=== PATIENT | female | born 1950 | race Caucasian/White ===

== ENCOUNTER → 2020-03-27 09:13 | Outpatient (BNVA) | payer MEDICARE, SELFPAY | PROVIDERS: PCP Internal Medicine; Visit Provider Student in an Organized Health Care Education/Training Program | DX: Z13.89 Encounter for screening for other disorder (principal) | CPT/HCPCS: Q3014 ==

== ENCOUNTER → 2020-04-02 13:54 | Outpatient (REF) | payer MEDICARE, SELFPAY ==
--- NOTE | 2020-04-02 14:00 | CA_ITS ---
Transthoracic Echocardiogram Patient (Last, First, Middle): Mandie Gonzalez, Gender: Female Date of : 1950 Age: 69 Procedure Date: 04/02/2020 Procedure Type: Transthoracic Echocardiogram Location: OP Height: 167.64 cm Weight: 85.73 kg BSA: 1.95 m2 Heart Rate: bpm BP: 110 / 50 mmHg Prior Authorization Nurse: TREVOR Perkins MD: Jeramie Damian MD Maintenance Data Analyst: Jeison Barragan MD Symptoms: I48.19 PERSISTENT AFIB, R06.02 SOB, Z86.73 HX OF STROKE Study Quality: Fair ECG Rhythm: Atrial Fibrillation Conclusions: - 1. Normal LV systolic function 2. Normal cardiac valvular Doppler 3. Normal RV systolic pressure 4. Mildly dilated ascending aorta at 4.2 cm 5. No pericardial effusion Findings Left Ventricle Normal left ventricular size, thickness, and systolic function. The visually estimated ejection fraction is between 55-60%. Diastolic function is indeterminate on the basis of available data. Right Ventricle Normal right ventricular cavity size and systolic function. Atria Both atria are normal in size. There is lipomatous hypertrophy of the interatrial septum. Interatrial shunt cannot be excluded. Aortic Valve There is mild thickening of the aortic valve. There is no aortic valve stenosis. There is no aortic valve regurgitation. Mitral Valve There is mild anterior and posterior mitral leaflet thickening. There is trace mitral valve regurgitation. There is no mitral valve stenosis. Pulmonic Valve The pulmonic valve was not well visualized. Tricuspid Valve Likely normal tricuspid valve structure and function. There is mild tricuspid valve regurgitation. The right ventricular systolic pressure is normal. The right ventricular systolic pressure is 33 mmHg. There is no evidence of pulmonary hypertension. Great Vessels The pulmonary artery was not well visualized. There is mild dilatation of the ascending aorta measuring 4.20 cm. Venous The inferior vena cava was not well visualized. Pericardium/Pleural There is no evidence of pericardial effusion. Prior Study Comparison No significant change compared to prior study dated: 06/22/2019. Measurements 2D Linear Measurements IVSd: 0.95 0.6-0.9/0.6-1.0 cm LVIDd: 4.37 3.9-5.3/4.2-5.9 cm LVIDd Index: 2.24 2.4-3.2/2.2-3.1 cm/m2 LVIDs: 3.14 2.0-3.6 cm LVPWd: 0.95 0.7-1.1 cm Ao Root: 3.70 2.1-3.5 cm LV Mass: 170.17 67-162/88-224 g LV Mass Index: 87.27 43-95/49-115 g/m2 LVOT Diam: 2.00 3.0+(-)1.3 cm 2D Systolic Function EF 4C: 54.30 >55% EF 2C: 65.70 >55% EF BiP: 60.10 >55% Aortic Valve AoV Pk Kendrick: 1.18 AoV Mn Kendrick: 0.92 AoV VTI: 0.21 AoV Pk Grad: 6.00 Aov Mn Grad: 4.00 DAVID Cont.VTI: 2.81 LVOT LVOT Pk Kendrick: 1.02 LVOT Mn Kendrick: 0.77 LVOT VTI: 0.19 LVOT Pk Grad: 4.00 LVOT Mn Grad: 3.00 LVOT Diam: 2.00 LVOT Area: 3.14 Tricuspid Valve TR Pk Kendrick: 2.73 TR Pk Grad: 30.00 RA Press: 3.00 RVSP: 33.00 Great Vessels Aorta Ao Root-2D: 3.70 2.0-3.7 cm Ao Asc: 4.20 2.1-3.4 cm Updated in Other Vendor System with Status of Final Jeison Barragan MD electronically signed on 04/03/2020 12:13:00 PM with status of Final
== END ==
LOC: HO.CARD 13:54
PROVIDERS: PCP Internal Medicine; Visit Provider Internal Medicine
DX: I48.19 Other persistent atrial fibrillation (principal); R06.02 Shortness of breath; Z86.73 Personal history of transient ischemic attack (TIA), and cerebral infarction without residual deficits
CPT/HCPCS: 93306

== ENCOUNTER 2020-05-29 14:53 | Outpatient (REF) | payer MEDICARE, SELFPAY ==
[2020-05-29 15:30] LABS: Leukocytes Stool Qualitative FEW: < 2/OIF (NEGATIVE)
== END 2020-05-29 14:54 | disposition home or self-care (01) ==
LOC: HO.LNP 14:53
PROVIDERS: Visit Provider Internal Medicine
DX: A09 Infectious gastroenteritis and colitis, unspecified (principal)
CPT/HCPCS: 87045; 87046; 87329; 89055

== ENCOUNTER 2020-08-09 11:00 | Outpatient (RCR) | payer MEDICARE, SELFPAY | END 2020-08-31 12:47 | disposition other institution (70) | LOC: HO.PTWFD 11:00 | PROVIDERS: PCP Internal Medicine; Visit Provider Internal Medicine | DX: R42 Dizziness and giddiness (principal) | CPT/HCPCS: 95992; 97110; 97116; 97162; 97535 ==

== ENCOUNTER 2020-08-21 12:41 | Emergency (ER) | payer MEDICARE, SELFPAY ==
[2020-08-21 13:40] VITALS: BP 92/62; PULSE 71; RESP 18; TEMP 36.4; O2SAT 96; BMI 31.1
[2020-08-21 14:32] LABS: MANUAL DIFF FLAG NO
[2020-08-21 14:34] LABS: Basophils Absolute Auto 0.1 X10*3/uL (0.0-0.2); Basophils Percent Auto 0.8 % (0-2); Eosinophils Absolute Auto 0.3 X10*3/uL (0.0-0.4); Hematocrit 41.2 % (37-47); Hemoglobin 13.3 g/dl (12.0-16.0); Imm Gran Abs Auto 0.03 X10*3/uL (0.00-0.03); Imm Gran Pct Auto 0.4 % (0.0-0.4); Lymphocytes Absolute Auto 1.7 X10*3/uL (1.2-4.9); Lymphocytes Percent Auto 20.1 % (20-40); Mean Corpuscular HGB Conc 32.3 g/dl (31.0-35.0); Mean Corpuscular Hemoglobin 30.4 pg (27.0-33.0); Mean Corpuscular Volume 94.1 fL (80-98); Mean Platelet Volume 9.8 fL (9.4-12.3); Monocytes Absolute Auto 0.8 X10*3/uL (0.1-1.2); Monocytes Percent Auto 9.1 % (2-11); Neutrophils Absolute Auto 5.5 X10*3/uL (2.0-8.3); Neutrophils Percent Auto 66.6 % (45-73); Platelet Count 234 X10*3/uL (160-400); Red Blood Count 4.38 X10*6/uL (4.20-5.50); Red Cell Distribution Width 14.5 % (11.0-16.0); White Blood Count 8.3 X10*3/uL (4.8-10.8)
--- NOTE | 2020-08-21 14:54 | ED_ITS ---
HPI - General Adult General Chief complaint: General Medical Stated complaint: pt feeling sick Time Seen by Provider: 08/21/20 14:11 Source: patient and family Mode of arrival: ambulatory Limitations: no limitations History of Present Illness HPI narrative: 70 y/o female with history of atrial fibrillation on Eliquis, HTN, HLD, hx CVA 5 years ago, severe arthritis, chronic back pain who presents to the ER with bodyaches, joint pain and generally feeling unwell. She reports starting last Thursday, 6 days ago, she starting having increase in her chronic joint pain. She had very sore upper back and neck as well as hips and shoulder pains. Two days later she developed generalized weakness and fatigue and spent much of the weekend in bed. She had 1 day of diarrhea, about 4-5 episodes of loose watery stool with some nausea but not vomiting or abdominal pain. She monitored her temperature and never had a fever. She called her doctor this morning who advised her to come to the ER for evaluation and COVID testing. She is s/p [employer] x2 in April. She reports feeling better today but not at her baseline. MD complaint: feeling unwell Onset (ago): day(s) (6) Severity: mild Relieving factors: rest Exacerbating factors: movement Associated symptoms: headaches and loss of appetite Treatments prior to arrival: none Related Data Home Medications Medication Instructions Recorded Confirmed apixaban 5 mg tablet 5 mg PO BID 03/27/20 atorvastatin 40 mg tablet 40 mg PO DAILY 03/27/20 celecoxib 200 mg capsule 200 mg PO DAILY 03/27/20 conj estrogen-medroxyprogesterone 1 tab PO DAILY 03/27/20 0.625 mg-2.5 mg tablet levothyroxine 50 mcg capsule 50 mcg PO DAILY 03/27/20 lisinopril 20 1 tab PO DAILY 03/27/20 mg-hydrochlorothiazide 12.5 mg tablet metoprolol succinate 50 mg 50 mg PO DAILY 03/27/20 tablet,extended release 24 hr omeprazole 20 mg capsule,delayed 20 mg PO DAILY 03/27/20 release verapamil 120 mg 24 hr 120 mg PO DAILY 03/27/20 capsule,extended release Previous Rx's Medication Instructions Recorded tramadol 50 mg tablet 50 mg PO Q8H PRN #90 tab 03/27/20 cefuroxime axetil 250 mg PO BID #10 tab 08/21/20 Allergies Allergy/AdvReac Type Severity Reaction Status Date / Time No Known Allergies Allergy Mild N/A Verified 08/21/20 13:40 Review of Systems Review of Systems: Constitutional: No Fever, No Chills ENT/Mouth: No sore throat, No Rhinorrhea, No Swallowing Difficulty Cardiovascular: No Chest Pain, No SOB, No Orthopnea, No Edema Respiratory: No Cough, No Sputum, No Wheezing, No dyspnea Gastrointestinal: + Nausea, No Vomiting, + Diarrhea, No abdominal Pain, No Hematochezia, No Melena Genitourinary: No Dysuria, No Urinary Frequency, No Hematuria Musculoskeletal: + joint pain, + Myalgias Skin: No Skin Lesions, No rash Neuro: + Weakness, No Numbness, No Dizziness, + Headache Psych: No Anxiety/Panic, No Depression Heme/Lymph: No Bruising, No Lymphadenopathy Endocrine: No Polyuria, No Polydipsia PMF Past Medical History Attestation statement: The following information was validated with the patient. Medical History Anxiety Arthritis Asthma Carpal tunnel syndrome Chronic pain GERD (gastroesophageal reflux disease) HTN (hypertension) Hypothyroidism Obesity Primary osteoarthritis involving multiple joints Stroke Surgical History (Updated 03/27/20 @ 09:20 by Delores Almazan CMA) History of bladder surgery History of tonsillectomy Hx of cholecystectomy S/P foot surgery, right S/P panniculectomy Family History Family History (Updated 03/27/20 @ 09:21 by Delores Almazan CMA) Father CVD (cardiovascular disease) Diabetes Mother CVD (cardiovascular disease) HTN (hypertension) Social History Social History (Updated 03/27/20 @ 09:22 by Delores Almazan CMA) Alcohol intake: unknown Patient Tobacco Use Status: Tobacco use Unknown Use of substances other than those prescribed or required for medical reasons: No Advance Directives: No Advance Directives Information Provided: No Physical Exam Vital Signs: Vital Signs: Last Vital Signs Temp 97.4 F 08/21/20 15:08 Pulse 88 08/21/20 16:17 Resp 16 08/21/20 16:17 BP 117/56 L 08/21/20 16:17 Pulse Ox 98 08/21/20 16:17 Body Mass Index 31.1 Appearance: Alert. Oriented X3. No acute distress. Eyes: Pupils equal, round and reactive to light. ENT: Pharynx normal. Neck: Normal inspection. Neck supple. CVS: Irregularly irregular, normal rate. Pulses normal. Respiratory: No respiratory distress. Breath sounds normal. Abdomen: Obese, Soft and nontender. +BS x4 Skin: Skin warm and dry. Normal skin color. Normal skin turgor. No rashes. Extremities: No lower extremity edema. Neuro: Oriented X 3. No motor deficit. No sensory deficit. Slow but steady gait with her cane. Course Course Course Narrative: 70 y/o female presenting with generalized weakness, fatigue, body aches and 1 day of diarrhea. Possible viral syndrome, dehydration, UTI. Will get lab workup and COVID swab. She is afebrile on arrival with soft BP 92/62, no dizziness. She reports her usual BP at home, the top number is 97 or so. Reports poor PO intake and she took all of her anti-hypertensives/rate controlling meds. Low suspicion for sepsis at this time. Reevaluation(s) Reevaluation #1: Labs are unremarkable. No leukocytosis, electrolytes and renal function are normal. Awaiting UA. She is tolerating PO. No diarrhea. Reevaluation #2: ua + for infection. Will start Ceftin and d/c home. She is not septic. Patient agreeable with plan and will f/u with PCP. 1st dose abx given now. Medical Decision Making Lab Data Result diagrams: 08/21/20 14:27 08/21/20 14:27 Labs: Lab Results 08/21/20 08/21/20 08/21/20 Range/Units 14:27 14:27 14:27 WBC 8.3 (4.8-10.8) X10*3/uL RBC 4.38 (4.20-5.50) X10*6/uL Hgb 13.3 (12.0-16.0) g/dl Hct 41.2 (37-47) % MCV 94.1 (80-98) fL MCH 30.4 (27.0-33.0) pg MCHC 32.3 (31.0-35.0) g/dl RDW 14.5 (11.0-16.0) % Plt Count 234 (160-400) X10*3/uL MPV 9.8 (9.4-12.3) fL Immature Gran % (Auto) 0.4 (0.0-0.4) % Neut % (Auto) 66.6 (45-73) % Lymph % (Auto) 20.1 (20-40) % [place] % (Auto) 9.1 (2-11) % Eos % (Auto) 3.0 (0-4) % Baso % (Auto) 0.8 (0-2) % Lymph # (Auto) 1.7 (1.2-4.9) X10*3/uL [place] # (Auto) 0.8 (0.1-1.2) X10*3/uL Eos # (Auto) 0.3 (0.0-0.4) X10*3/uL Baso # (Auto) 0.1 (0.0-0.2) X10*3/uL Abs Immat Gran (auto) 0.03 (0.00-0.03) X10*3/uL Absolute Neuts (auto) 5.5 (2.0-8.3) X10*3/uL Absolute Nucleated RBC 0.000 (0.0-0.012) X10*3/uL Nucleated RBC % (auto) 0.0 (0.0-0.2) /100WBC Hold Blue Top Sodium 139 (135-145) mmol/L Potassium 4.0 (3.3-5.1) mmol/L Chloride 101 (96-108) mmol/L Carbon Dioxide 28 (22-29) mmol/L Anion Gap 14 (12-20) BUN 17 H (9-16) mg/dL Creatinine 1.08 (0.5-1.4) mg/dL Estim Creat Clear Calc 50.6 Estimated GFR 50 Random Glucose 110 (60-115) mg/dL Calcium 9.4 (8.4-10.2) mg/dL Magnesium 1.9 (1.6-2.6) mg/dL Total Bilirubin 0.4 (0.0-1.0) mg/dL Direct Bilirubin 0.2 (0.0-0.5) mg/dL AST 27 (5-31) U/L ALT 27 (0-31) U/L Alkaline Phosphatase 104 (39-117) U/L Total Protein 6.2 L (6.5-8.0) g/dL Albumin 3.7 (3.5-5.0) g/dL Lipase 18 (8-78) U/L Urine Color Urine Appearance Urine pH (5.0-8.0) Ur Specific [place] (1.005-1.025) Urine Protein (NEG-TRACE) MG/DL Urine Glucose (UA) (NEG) MG/DL Urine Ketones (NEG) MG/DL Urine Blood (NEG) Urine Nitrite (NEG) Ur Leukocyte Esterase (NEG) Urine RBC (0) /HPF Urine WBC (0-4) /HPF Ur Squamous Epith Cells /LPF Urine Bacteria /LPF Urine Mucus /LPF COVID-19 ([facility]VIN) Negative (Negative) COVID-19 Clin Com See Note 08/21/20 08/21/20 Range/Units 14:27 16:08 WBC (4.8-10.8) X10*3/uL RBC (4.20-5.50) X10*6/uL Hgb (12.0-16.0) g/dl Hct (37-47) % MCV (80-98) fL MCH (27.0-33.0) pg MCHC (31.0-35.0) g/dl RDW (11.0-16.0) % Plt Count (160-400) X10*3/uL MPV (9.4-12.3) fL Immature Gran % (Auto) (0.0-0.4) % Neut % (Auto) (45-73) % Lymph % (Auto) (20-40) % [place] % (Auto) (2-11) % Eos % (Auto) (0-4) % Baso % (Auto) (0-2) % Lymph # (Auto) (1.2-4.9) X10*3/uL [place] # (Auto) (0.1-1.2) X10*3/uL Eos # (Auto) (0.0-0.4) X10*3/uL Baso # (Auto) (0.0-0.2) X10*3/uL Abs Immat Gran (auto) (0.00-0.03) X10*3/uL Absolute Neuts (auto) (2.0-8.3) X10*3/uL Absolute Nucleated RBC (0.0-0.012) X10*3/uL Nucleated RBC % (auto) (0.0-0.2) /100WBC Hold Blue Top SEE NOTE Sodium (135-145) mmol/L Potassium (3.3-5.1) mmol/L Chloride (96-108) mmol/L Carbon Dioxide (22-29) mmol/L Anion Gap (12-20) BUN (9-16) mg/dL Creatinine (0.5-1.4) mg/dL Estim Creat Clear Calc Estimated GFR Random Glucose (60-115) mg/dL Calcium (8.4-10.2) mg/dL Magnesium (1.6-2.6) mg/dL Total Bilirubin (0.0-1.0) mg/dL Direct Bilirubin (0.0-0.5) mg/dL AST (5-31) U/L ALT (0-31) U/L Alkaline Phosphatase (39-117) U/L Total Protein (6.5-8.0) g/dL Albumin (3.5-5.0) g/dL Lipase (8-78) U/L Urine Color YELLOW Urine Appearance HAZY Urine pH 6.0 (5.0-8.0) Ur Specific [place] 1.010 (1.005-1.025) Urine Protein NEG (NEG-TRACE) MG/DL Urine Glucose (UA) NEG (NEG) MG/DL Urine Ketones NEG (NEG) MG/DL Urine Blood TRACE (NEG) Urine Nitrite POS H (NEG) Ur Leukocyte Esterase 1+ H (NEG) Urine RBC 0-2 (0) /HPF Urine WBC 15-29 H (0-4) /HPF Ur Squamous Epith Cells 2+ /LPF Urine Bacteria 3+ /LPF Urine Mucus 2+ /LPF COVID-19 ([facility]VIN) (Negative) COVID-19 Clin Com Discharge Plan Discharge Clinical Impression: Acute UTI Patient Disposition: Home, Self-Care Instructions: Urinary Tract Infection in Women (ED) Additional Instructions: Your urine test today showed infection. Take the prescribed antibiotic as directed starting tomorrow morning. Your lab workup was otherwise unremarkable and your COVID test was negative. Follow up with your doctor as needed. Prescriptions: New cefuroxime axetil 250 mg tablet 250 mg PO BID Qty: 10 RF: 0 No Action Prempro 0.625-2.5 mg tablet 1 tab PO DAILY RF: 0 omeprazole 20 mg capsule,delayed release(DR/EC) 20 mg PO DAILY RF: 0 celecoxib 200 mg capsule 200 mg PO DAILY RF: 0 levothyroxine 50 mcg capsule 50 mcg PO DAILY RF: 0 Eliquis 5 mg tablet 5 mg PO BID RF: 0 atorvastatin 40 mg tablet 40 mg PO DAILY RF: 0 lisinopril-hydrochlorothiazide 20-12.5 mg tablet 1 tab PO DAILY RF: 0 verapamil 120 mg capsule,ext rel. pellets 24 hr 120 mg PO DAILY RF: 0 metoprolol succinate 50 mg tablet extended release 24 hr 50 mg PO DAILY RF: 0 tramadol 50 mg tablet 50 mg PO Q8H PRN (Reason: pain) Qty: 90 RF: 5
[2020-08-21 15:02] LABS: Alanine Aminotransferase 27 U/L (0-31); Albumin Level 3.7 g/dL (3.5-5.0); Alkaline Phosphatase 104 U/L (39-117); Anion Gap 14 (12-20); Aspartate Amino Transferase 27 U/L (5-31); Bilirubin Direct 0.2 mg/dL (0.0-0.5); Bilirubin Total 0.4 mg/dL (0.0-1.0); Blood Urea Nitrogen 17 mg/dL (9-16); Calcium 9.4 mg/dL (8.4-10.2); Carbon Dioxide 28 mmol/L (22-29); Chloride 101 mmol/L (96-108); Creatinine Clr Calc Pharmacy 50.6; Estimated Glomerular Filt Rate 50; Glucose Random 110 mg/dL (60-115); IDNOW Serial# 08D9AD1C; Lipase 18 U/L (8-78); Magnesium 1.9 mg/dL (1.6-2.6); Sodium 139 mmol/L (135-145); Total Protein 6.2 g/dL (6.5-8.0)
[2020-08-21 15:03] LABS: COVID-19 Test Negative (Negative)
[2020-08-21 15:08] VITALS: BP 97/49; PULSE 71; RESP 17; TEMP 36.3; O2SAT 97
[2020-08-21 16:17] VITALS: BP 117/56; PULSE 88; RESP 16; O2SAT 98
--- NOTE | 2020-08-21 16:52 | PC.NURSE ---
This rn sent urine sample approx 30 mins ago, called lab to verify, will look for sample. Awaiting callback.
[2020-08-21 17:04] LABS: Appearance Urine HAZY; Color Urine YELLOW; Glucose Urine UA NEG (NEG); Leukocyte Esterase Urine 1+ (NEG); Nitrite Urine POS (NEG); UACC Culture Trigger YES; Urine Blood TRACE (NEG); Urine Ketones NEG (NEG); Urine Protein NEG (NEG-TRACE)
[2020-08-21 17:35] LABS: Bacteria Urine 3+ /LPF; Mucus Urine 2+ /LPF; RBC Urine 0-2 /HPF (0); Squamous Epithelial Cell Urine 2+ /LPF
== END 2020-08-21 17:51 | disposition home or self-care (01) ==
PROVIDERS: Emergency Provider Emergency Medicine; PCP Internal Medicine
DX: N39.0 Urinary tract infection, site not specified (principal); M79.10 Myalgia, unspecified site; I10 Essential (primary) hypertension; I48.91 Unspecified atrial fibrillation; R30.0 Dysuria; M54.5 Low back pain; Z20.822 Contact with and (suspected) exposure to COVID-19; Z79.01 Long term (current) use of anticoagulants; Z79.899 Other long term (current) drug therapy
CPT/HCPCS: 36415; 80048; 80076; 81001; 81003; 83690; 83735; 85025; 87086; 87088; 87186; 87635; 99284

== ENCOUNTER → 2020-09-21 13:05 | Outpatient (BNVA) | payer MEDICARE, SELFPAY | PROVIDERS: PCP Internal Medicine; Visit Provider Student in an Organized Health Care Education/Training Program | DX: M89.49 Other hypertrophic osteoarthropathy, multiple sites (principal) | CPT/HCPCS: 99212 ==

== ENCOUNTER → 2020-11-22 13:54 | Outpatient (BNVA) | payer MEDICARE, SELFPAY | PROVIDERS: PCP Internal Medicine; Visit Provider Internal Medicine | DX: I48.19 Other persistent atrial fibrillation (principal); I71.2 Thoracic aortic aneurysm, without rupture; I10 Essential (primary) hypertension | CPT/HCPCS: Q3014 ==

== ENCOUNTER 2020-12-04 14:45 | Outpatient (REF) | payer MEDICARE, SELFPAY ==
[2020-12-04 15:09] LABS: Appearance Urine CLEAR; Color Urine YELLOW; Glucose Urine UA NEG (NEG); PH 5.5 (5.0-8.0); Urine Blood NEG (NEG); Urine Ketones NEG (NEG); Urine Protein NEG (NEG-TRACE)
[2020-12-04 15:10] LABS: Leukocyte Esterase Urine NEG (NEG); Nitrite Urine NEG (NEG)
[2020-12-04 15:45] LABS: Bacteria Urine TRACE /LPF; RBC Urine 0 /HPF (0); Squamous Epithelial Cell Urine TRACE /LPF; WBC Urine 0 /HPF (0-4)
== END 2020-12-04 14:46 | disposition home or self-care (01) ==
LOC: HO.LNP 14:45
PROVIDERS: Visit Provider Internal Medicine
DX: Z51.89 Encounter for other specified aftercare (principal)
CPT/HCPCS: 81001; 87086

== ENCOUNTER 2021-01-03 10:30 | Outpatient (REF) | payer MEDICARE, SELFPAY ==
[2021-01-03 10:34] LABS: MANUAL DIFF FLAG NO
[2021-01-03 10:46] LABS: Basophils Absolute Auto 0.1 X10*3/uL (0.0-0.2); Basophils Percent Auto 0.8 % (0-2); Eosinophils Absolute Auto 0.3 X10*3/uL (0.0-0.4); Eosinophils Percent Auto 4.8 % (0-4); Hematocrit 39.2 % (37-47); Hemoglobin 12.3 g/dl (12.0-16.0); Imm Gran Abs Auto 0.01 X10*3/uL (0.00-0.03); Imm Gran Pct Auto 0.2 % (0.0-0.4); Lymphocytes Absolute Auto 2.2 X10*3/uL (1.2-4.9); Lymphocytes Percent Auto 37.3 % (20-40); Mean Corpuscular HGB Conc 31.4 g/dl (31.0-35.0); Mean Corpuscular Hemoglobin 29.3 pg (27.0-33.0); Mean Corpuscular Volume 93.3 fL (80-98); Mean Platelet Volume 11.6 fL (9.4-12.3); Monocytes Absolute Auto 0.8 X10*3/uL (0.1-1.2); Monocytes Percent Auto 13.2 % (2-11); Neutrophils Absolute Auto 2.6 X10*3/uL (2.0-8.3); Neutrophils Percent Auto 43.7 % (45-73); Platelet Count 263 X10*3/uL (160-400); Red Cell Distribution Width 14.1 % (11.0-16.0)
[2021-01-03 10:55] LABS: Appearance Urine HAZY; Color Urine YELLOW; Glucose Urine UA NEG (NEG); Leukocyte Esterase Urine NEG (NEG); Nitrite Urine NEG (NEG); Specific Gravity - Urine 1.015 (1.005-1.025); Urine Blood NEG (NEG); Urine Ketones NEG (NEG); Urine Protein NEG (NEG-TRACE)
[2021-01-03 11:05] LABS: Alanine Aminotransferase 20 U/L (0-31); Albumin Level 3.6 g/dL (3.5-5.0); Alkaline Phosphatase 87 U/L (39-117); Anion Gap 14 (12-20); Aspartate Amino Transferase 25 U/L (5-31); Bilirubin Total 0.3 mg/dL (0.0-1.0); Blood Urea Nitrogen 16 mg/dL (9-16); Calcium 9.6 mg/dL (8.4-10.2); Carbon Dioxide 29 mmol/L (22-29); Chloride 101 mmol/L (96-108); Cholesterol 126 mg/dL; Estimated Glomerular Filt Rate > 60; Glucose Fasting 99 mg/dL (60-99); HDL Cholesterol 50 mg/dL; LDL Cholesterol Calculated 53 mg/dl; Sodium 140 mmol/L (135-145); Total Protein 6.3 g/dL (6.5-8.0); Triglycerides 118 mg/dL
[2021-01-03 11:16] LABS: TSH reflex Free T4 1.97 uIU/mL (0.32-4.0)
[2021-01-03 11:17] LABS: Reflex LDLD? No
== END 2021-01-03 10:31 | disposition home or self-care (01) ==
LOC: HO.LNP 10:30
PROVIDERS: Visit Provider Internal Medicine
DX: E03.9 Hypothyroidism, unspecified (principal); I10 Essential (primary) hypertension; D50.0 Iron deficiency anemia secondary to blood loss (chronic); R79.9 Abnormal finding of blood chemistry, unspecified; D72.820 Lymphocytosis (symptomatic)
CPT/HCPCS: 80053; 80061; 81003; 84443; 85025

== ENCOUNTER 2021-02-07 17:13 | Emergency (ER) | payer MEDICARE, SELFPAY ==
--- NOTE | ~2021-02-07 | XR_ITS ---
EXAMINATION: XR CHEST CLINICAL INFORMATION: Shortness of breath. COMPARISON: Chest radiograph dated from 08/12/2019. TECHNIQUE: AP view of the chest was obtained. FINDINGS: Chronic asymmetric elevation of the right hemidiaphragm. Mild right lower lobe subsegmental atelectasis. Otherwise, clear lungs. No pleural effusion or pneumothorax. No acute osseous fractures. Partially visualized right shoulder prosthesis. XR/XR chest 1V IMPRESSION: No acute cardiopulmonary findings.
[2021-02-07 18:32] VITALS: BP 108/67; PULSE 84; RESP 16; TEMP 36.6; O2SAT 95; BMI 31.1
--- NOTE | 2021-02-07 18:41 | ECG_ITS ---
Test Reason : sob Blood Pressure : / mmHG Vent. Rate : 075 BPM Atrial Rate : 000 BPM P-R Int : 000 ms QRS Dur : 100 ms QT Int : 594 ms P-R-T Axes : 000 -01 -03 degrees QTc Int : 663 ms Atrial fibrillation Incomplete right bundle branch block Nonspecific ST and T wave abnormality Low voltage QRS Abnormal ECG When compared with ECG of 12-AUG-2019 14:06, Nonspecific T wave abnormality, worse in Inferior leads Nonspecific T wave abnormality, worse in Lateral leads Referred By: Generic ED Physician Electronically Signed By:MARIA ELENA SANCHEZ MD
[2021-02-07 19:29] LABS: Anion Gap 13 (12-20); Blood Urea Nitrogen 19 mg/dL (9-16); Calcium 9.2 mg/dL (8.4-10.2); Carbon Dioxide 33 mmol/L (22-29); Chloride 95 mmol/L (96-108); Estimated Glomerular Filt Rate 53; Glucose Random 91 mg/dL (60-115); Potassium 3.6 mmol/L (3.3-5.1); Sodium 137 mmol/L (135-145)
[2021-02-07 19:33] LABS: B Type Natriuretic Peptide 164 pg/mL (<100); Troponin-I High Sensitivity < 3.5 ng/L (<3.5-17.0)
[2021-02-07 19:50] LABS: Influenza A PCR NEGATIVE (Negative); Influenza B PCR NEGATIVE (Negative); Resp Syncy Virus RNA Qual PCR NEGATIVE (Negative); SARS COV2 PCR INHOUSE NEGATIVE (Negative)
[2021-02-07 22:49] LABS: Appearance Urine HAZY; Color Urine YELLOW; Glucose Urine UA NEG (NEG); Leukocyte Esterase Urine 1+ (NEG); Nitrite Urine NEG (NEG); UACC Culture Trigger YES; Urine Blood NEG (NEG); Urine Ketones NEG (NEG); Urine Protein NEG (NEG-TRACE)
[2021-02-07 23:03] LABS: Amorphous Sediment Urine TRACE /LPF; Bacteria Urine 3+ /LPF; RBC Urine 0-2 /HPF (0); Squamous Epithelial Cell Urine TRACE /LPF
[2021-02-08 00:14] LABS: MANUAL DIFF FLAG NO
[2021-02-08 00:17] LABS: Basophils Absolute Auto 0.1 X10*3/uL (0.0-0.2); Basophils Percent Auto 0.7 % (0-2); Eosinophils Absolute Auto 0.4 X10*3/uL (0.0-0.4); Eosinophils Percent Auto 4.7 % (0-4); Hematocrit 36.1 % (37.0-47.0); Hemoglobin 11.4 g/dl (12.0-16.0); Imm Gran Abs Auto 0.01 X10*3/uL (0.00-0.03); Imm Gran Pct Auto 0.1 % (0.0-0.4); Lymphocytes Percent Auto 26.6 % (20-40); Mean Corpuscular HGB Conc 31.6 g/dl (31.0-35.0); Mean Corpuscular Volume 91.9 fL (80.0-98.0); Mean Platelet Volume 9.9 fL (9.4-12.3); Monocytes Percent Auto 12.8 % (2-11); Neutrophils Absolute Auto 4.2 x10*3/uL (2.0-8.3); Neutrophils Percent Auto 55.1 % (45-73); Platelet Count 205 X10*3/uL (160-400); Red Blood Count 3.93 X10*6/uL (4.20-5.50); Red Cell Distribution Width 13.4 % (11.0-16.0); White Blood Count 7.7 X10*3/uL (4.8-10.8)
[2021-02-08 00:30] VITALS: BP 114/72; PULSE 68; RESP 16; TEMP 36.5; O2SAT 95
--- NOTE | 2021-02-08 00:40 | ED.GENADULT ---
HPI - General Adult General Chief complaint: General Medical Stated complaint: Multiple complaints Time Seen by Provider: 02/08/21 00:40 Source: patient Mode of arrival: ambulatory Limitations: no limitations History of Present Illness HPI narrative: Patient has been sick for 3 weeks. Myalgias and right neck pain, exhaustion, diarrhea, dizziness, shortness of breath hoarse voice all for the last 3 weeks. patient has had 3 covid tests that were negative. Onset (ago): week(s) Related Data Home Medications Medication Instructions Recorded Confirmed apixaban 5 mg tablet (Eliquis) 5 mg PO BID 03/27/20 11/22/20 atorvastatin 40 mg tablet 40 mg PO DAILY 03/27/20 11/22/20 celecoxib 200 mg capsule 200 mg PO DAILY 03/27/20 11/22/20 conj estrogen-medroxyprogesterone 1 tab PO DAILY 03/27/20 11/22/20 0.625 mg-2.5 mg tablet (Prempro) levothyroxine 50 mcg capsule 50 mcg PO DAILY 03/27/20 11/22/20 lisinopril 20 1 tab PO DAILY 03/27/20 11/22/20 mg-hydrochlorothiazide 12.5 mg tablet metoprolol succinate 50 mg 50 mg PO DAILY 03/27/20 11/22/20 tablet,extended release 24 hr omeprazole 20 mg capsule,delayed 20 mg PO DAILY 03/27/20 11/22/20 release verapamil 120 mg 24 hr 120 mg PO DAILY 03/27/20 11/22/20 capsule,extended release Previous Rx's Medication Instructions Recorded tramadol 50 mg tablet 50 mg PO Q8H PRN #90 tab 09/21/20 cyclobenzaprine 10 mg tablet 10 mg PO TID #10 tab 02/08/21 Allergies Allergy/AdvReac Type Severity Reaction Status Date / Time No Known Allergies Allergy Mild N/A Verified 02/07/21 18:32 Review of Systems Neurologic: Denies Sensory deficit (Neuro) [facility] Past Medical History Medical History (Updated 02/08/21 @ 00:55 by Marco Antonio Em MD) Anxiety Arthritis Asthma Carpal tunnel syndrome Chronic pain GERD (gastroesophageal reflux disease) HTN (hypertension) Hypothyroidism Obesity Persistent atrial fibrillation Primary osteoarthritis involving multiple joints Stroke Surgical History History of bladder surgery History of tonsillectomy Hx of cholecystectomy S/P foot surgery, right S/P panniculectomy Family History Family History Father CVD (cardiovascular disease) Diabetes Mother CVD (cardiovascular disease) HTN (hypertension) Social History Social History (Updated 11/22/20 @ 13:56 by NICK Nunez) Alcohol intake: unknown Patient Tobacco Use Status: Current everyday Tobacco user e-Cigarette/Vaping Use: Never Used Advance Directives: No Advance Directives Information Provided: No Physical Exam Vital Signs: Vital Signs: Last Vital Signs Temp 97.7 F 02/08/21 00:30 Pulse 68 02/08/21 00:30 Resp 16 02/08/21 00:30 BP 114/72 02/08/21 00:30 Pulse Ox 95 02/08/21 00:30 Body Mass Index 31.1 Const: Other: patient slightly anxious Nutritional Appearance: obese Orientation/consciousness: oriented to person and patient oriented x3 Limitations: no limitations HENMT: Head: Yes normal to inspection Ears: external ears normal General nose exam: Normal external nose present Mouth: Normal oral and palatal mucosa present and oropharynx normal Throat: Yes posterior oropharynx normal Eyes: General: appearance normal, both eyes and all related structures Neck: Other: right trapezius tenderness Neck: Yes normal visual inspection Chest: Chest palpation & inspection: normal inspection of the chest Resp: Auscultation: clear to auscultation bilaterally Cardio: Jugular venous distension: no JVD Rate: regular rate Rhythm: regular rhythm Heart sounds: S1 normal heart sound present and S2 normal heart sound present GI: Inspection: Yes normal to inspection Palpation (GI): Soft to palpation, nontender and No hepatosplenomegaly present Auscultation: normal bowel sounds : General: Yes no CVA tenderness Back/Spine/Pelvis: Back: no CVA tenderness Skin: General skin exam: no rashes or lesions noted Neuro: General: oriented to person and patient oriented x3 Cranial nerves: Yes CN's II-XII intact bilaterally Motor exam (neuro): 5/5 motor strength present throughout Sensory Exam: No Sensory deficit (Neuro) Extrem: Other: 3+ edema bilaterally Psych: Appearance: grossly normal Course Reevaluation(s) Reevaluation #1: There is no evidence of infection, especially COVID, no evidence of heart failure despite bilateral lower extremity swelling CXR is normal, BNP is low, patient with right trapezius neck pain to palpation will place on flexeril Time: 00:53 Medical Decision Making Lab Data Result diagrams: 02/08/21 00:10 02/07/21 19:04 Labs: Lab Results 02/07/21 02/07/21 02/07/21 Range/Units 19:03 19:04 19:04 WBC (4.8-10.8) X10*3/uL RBC (4.20-5.50) X10*6/uL Hgb (12.0-16.0) g/dl Hct (37.0-47.0) % MCV (80.0-98.0) fL MCH (27.0-33.0) pg MCHC (31.0-35.0) g/dl RDW (11.0-16.0) % Plt Count (160-400) X10*3/uL MPV (9.4-12.3) fL Immature Gran % (Auto) (0.0-0.4) % Neut % (Auto) (45-73) % Lymph % (Auto) (20-40) % [place] % (Auto) (2-11) % Eos % (Auto) (0-4) % Baso % (Auto) (0-2) % Lymph # (Auto) (1.2-4.9) X10*3/uL [place] # (Auto) (0.1-1.2) X10*3/uL Eos # (Auto) (0.0-0.4) X10*3/uL Baso # (Auto) (0.0-0.2) X10*3/uL Abs Immat Gran (auto) (0.00-0.03) X10*3/uL Absolute Neuts (auto) (2.0-8.3) x10*3/uL Absolute Nucleated RBC (0.0-0.012) X10*3/uL Nucleated RBC % (auto) (0.0-0.2) /100WBC Sodium 137 (135-145) mmol/L Potassium 3.6 (3.3-5.1) mmol/L Chloride 95 L (96-108) mmol/L Carbon Dioxide 33 H (22-29) mmol/L Anion Gap 13 (12-20) BUN 19 H (9-16) mg/dL Creatinine 1.03 (0.5-1.4) mg/dL Estim Creat Clear Calc 53.0 Estimated GFR 53 Random Glucose 91 (60-115) mg/dL Calcium 9.2 (8.4-10.2) mg/dL Troponin I High Sens < 3.5 (<3.5-17.0) ng/L B-Natriuretic Peptide 164 H (<100) pg/mL Urine Color Urine Appearance Urine pH (5.0-8.0) Ur Specific [place] (1.005-1.025) Urine Protein (NEG-TRACE) MG/DL Urine Glucose (UA) (NEG) MG/DL Urine Ketones (NEG) MG/DL Urine Blood (NEG) Urine Nitrite (NEG) Ur Leukocyte Esterase (NEG) Urine RBC (0) /HPF Urine WBC (0-4) /HPF Ur Squamous Epith Cells /LPF Amorphous Sediment /LPF Urine Bacteria /LPF Influenza Type A (PCR) NEGATIVE (Negative) Influenza Type B (PCR) NEGATIVE (Negative) RSV RNA Qual (PCR) NEGATIVE (Negative) SARS-CoV-2 RNA (RT-PCR) NEGATIVE (Negative) 02/07/21 02/08/21 Range/Units 22:37 00:10 WBC 7.7 (4.8-10.8) X10*3/uL RBC 3.93 L (4.20-5.50) X10*6/uL Hgb 11.4 L (12.0-16.0) g/dl Hct 36.1 L (37.0-47.0) % MCV 91.9 (80.0-98.0) fL MCH 29.0 (27.0-33.0) pg MCHC 31.6 (31.0-35.0) g/dl RDW 13.4 (11.0-16.0) % Plt Count 205 (160-400) X10*3/uL MPV 9.9 (9.4-12.3) fL Immature Gran % (Auto) 0.1 (0.0-0.4) % Neut % (Auto) 55.1 (45-73) % Lymph % (Auto) 26.6 (20-40) % [place] % (Auto) 12.8 H (2-11) % Eos % (Auto) 4.7 H (0-4) % Baso % (Auto) 0.7 (0-2) % Lymph # (Auto) 2.0 (1.2-4.9) X10*3/uL [place] # (Auto) 1.0 (0.1-1.2) X10*3/uL Eos # (Auto) 0.4 (0.0-0.4) X10*3/uL Baso # (Auto) 0.1 (0.0-0.2) X10*3/uL Abs Immat Gran (auto) 0.01 (0.00-0.03) X10*3/uL Absolute Neuts (auto) 4.2 (2.0-8.3) x10*3/uL Absolute Nucleated RBC 0.000 (0.0-0.012) X10*3/uL Nucleated RBC % (auto) 0.0 (0.0-0.2) /100WBC Sodium (135-145) mmol/L Potassium (3.3-5.1) mmol/L Chloride (96-108) mmol/L Carbon Dioxide (22-29) mmol/L Anion Gap (12-20) BUN (9-16) mg/dL Creatinine (0.5-1.4) mg/dL Estim Creat Clear Calc Estimated GFR Random Glucose (60-115) mg/dL Calcium (8.4-10.2) mg/dL Troponin I High Sens (<3.5-17.0) ng/L B-Natriuretic Peptide (<100) pg/mL Urine Color YELLOW Urine Appearance HAZY Urine pH 6.0 (5.0-8.0) Ur Specific [place] 1.010 (1.005-1.025) Urine Protein NEG (NEG-TRACE) MG/DL Urine Glucose (UA) NEG (NEG) MG/DL Urine Ketones NEG (NEG) MG/DL Urine Blood NEG (NEG) Urine Nitrite NEG (NEG) Ur Leukocyte Esterase 1+ H (NEG) Urine RBC 0-2 (0) /HPF Urine WBC 5-9 H (0-4) /HPF Ur Squamous Epith Cells TRACE /LPF Amorphous Sediment TRACE /LPF Urine Bacteria 3+ /LPF Influenza Type A (PCR) (Negative) Influenza Type B (PCR) (Negative) RSV RNA Qual (PCR) (Negative) SARS-CoV-2 RNA (RT-PCR) (Negative) Imaging Data Chest x-ray: Radiologist's impression: FINDINGS: Chronic asymmetric elevation of the right hemidiaphragm. Mild right lower lobe subsegmental atelectasis. Otherwise, clear lungs. No pleural effusion or pneumothorax. No acute osseous fractures. Partially visualized right shoulder prosthesis. XR/XR chest 1V IMPRESSION: No acute cardiopulmonary findings. ? Discharge Plan Discharge Clinical Impression: Myalgia, Weakness Patient Disposition: Home, Self-Care Instructions: Weakness (ED), Musculoskeletal Pain (ED) Prescriptions: New cyclobenzaprine 10 mg tablet 10 mg PO TID Qty: 10 RF: 0 No Action Prempro 0.625-2.5 mg tablet 1 tab PO DAILY RF: 0 omeprazole 20 mg capsule,delayed release(DR/EC) 20 mg PO DAILY RF: 0 celecoxib 200 mg capsule 200 mg PO DAILY RF: 0 levothyroxine 50 mcg capsule 50 mcg PO DAILY RF: 0 Eliquis 5 mg tablet 5 mg PO BID RF: 0 atorvastatin 40 mg tablet 40 mg PO DAILY RF: 0 lisinopril-hydrochlorothiazide 20-12.5 mg tablet 1 tab PO DAILY RF: 0 verapamil 120 mg capsule,ext rel. pellets 24 hr 120 mg PO DAILY RF: 0 metoprolol succinate 50 mg tablet extended release 24 hr 50 mg PO DAILY RF: 0 tramadol 50 mg tablet 50 mg PO Q8H PRN (Reason: pain) Qty: 90 RF: 5 Referrals: Rai Fabian MD [Primary Care Provider] - 5 days
[2021-02-08] MEDS: Cyclobenzaprine HCl 10 MG TABLET PO (01:10)
== END 2021-02-08 01:23 | disposition home or self-care (01) ==
PROVIDERS: Emergency Provider Emergency Medicine; PCP Internal Medicine
DX: N39.0 Urinary tract infection, site not specified (principal); R53.1 Weakness; Z20.822 Contact with and (suspected) exposure to COVID-19; R06.02 Shortness of breath; F17.200 Nicotine dependence, unspecified, uncomplicated
CPT/HCPCS: 0241U; 36415; 71045; 80048; 81001; 83880; 84484; 85025; 87086; 87088; 87186; 93005; 99283; 99284

== ENCOUNTER → 2021-03-26 13:10 | Outpatient (BNVA) | payer MEDICARE, SELFPAY | PROVIDERS: PCP Internal Medicine; Visit Provider Nurse Practitioner Family | DX: M89.49 Other hypertrophic osteoarthropathy, multiple sites (principal) | CPT/HCPCS: 99212 ==

== ENCOUNTER → 2021-03-27 14:03 | Outpatient (REF) | payer MEDICARE, SELFPAY ==
--- NOTE | 2021-03-27 14:05 | CA_ITS ---
Transthoracic Echocardiogram Patient (Last, First, Middle): Mandie Gonzalez I Gender: Female Date of : 1950 Age: 70 Procedure Date: 03/27/2021 Procedure Type: Transthoracic Echocardiogram Location: OP Height: 165.1 cm Weight: 84.82 kg BSA: 1.92 m2 Heart Rate: bpm BP: 110 / 60 mmHg Cable Engineer: TREVOR Perkins MD: Jeramie Damian MD Pressing Department Supervisor: Jeison Barragan MD Symptoms: I71.2 - Thoracic aortic aneurysm, without rupture Study Quality: Fair ECG Rhythm: Atrial Fibrillation Conclusions: - 1. Normal LV systolic function 2. Mildly dilated left atrium 3. Trivial aortic regurgitation 4. Mildly dilated ascending aorta at 4.2 cm 5. No gross pericardial effusion 6. Normal RV systolic pressure Findings Left Ventricle Normal left ventricular size, thickness, and systolic function. The visually estimated ejection fraction is between 60-65%. Diastolic function is indeterminate on the basis of available data. Right Ventricle Normal right ventricular cavity size and systolic function. Atria The left atrium is mildly dilated. There is no evidence of interatrial shunt. The right atrium is normal in size. Aortic Valve There is mild thickening of the aortic valve. There is no aortic valve stenosis. There is trace (trivial) aortic valve regurgitation. Mitral Valve There is mild anterior and posterior mitral leaflet thickening. There is trace mitral valve regurgitation. There is no mitral valve stenosis. Pulmonic Valve The pulmonic valve was not well visualized. Tricuspid Valve Likely normal tricuspid valve structure and function. There is mild tricuspid valve regurgitation. The right ventricular systolic pressure is normal. The right ventricular systolic pressure is 29 mmHg. Normal right atrial pressure. There is no evidence of pulmonary hypertension. Great Vessels The pulmonary artery was not well visualized. There is mild dilatation of the ascending aorta. Venous The inferior vena cava is normal in size and collapses greater than 50% with inspiration. Pericardium/Pleural There is no evidence of pericardial effusion. Prior Study Comparison No significant change compared to prior study dated: 04/02/2020. Measurements 2D Linear Measurements IVSd: 1.20 0.6-0.9/0.6-1.0 cm LVIDd: 4.29 3.9-5.3/4.2-5.9 cm LVIDd Index: 2.23 2.4-3.2/2.2-3.1 cm/m2 LVIDs: 2.76 2.0-3.6 cm LVPWd: 0.93 0.7-1.1 cm Ao Root: 3.60 2.1-3.5 cm LA Diam: 3.50 2.7-3.8/3.0-4.0 cm LAIDs Index: 1.82 1.5-2.3 cm/m2 LV Mass: 193.08 67-162/88-224 g LV Mass Index: 100.56 43-95/49-115 g/m2 LVOT Diam: 2.10 3.0+(-)1.3 cm 2D Systolic Function EF 4C: 63.80 >55% EF 2C: 59.70 >55% EF BiP: 63.50 >55% Aortic Valve AoV Pk Kendrick: 1.22 AoV Mn Kendrick: 0.93 AoV VTI: 0.23 AoV Pk Grad: 6.00 Aov Mn Grad: 4.00 DAVID Cont.VTI: 2.53 LVOT LVOT Pk Kendrick: 0.83 LVOT Mn Kendrick: 0.58 LVOT VTI: 0.17 LVOT Pk Grad: 3.00 LVOT Mn Grad: 2.00 LVOT Diam: 2.10 LVOT Area: 3.46 Tricuspid Valve TR Pk Kendrick: 2.55 TR Pk Grad: 26.00 RA Press: 3.00 RVSP: 29.00 Great Vessels Aorta Ao Root-2D: 3.60 2.0-3.7 cm Ao Asc: 4.20 2.1-3.4 cm Ao Arch: 3.30 Updated in Other Vendor System with Status of Final Jeison Barragan MD electronically signed on 03/27/2021 4:32:21 PM with status of Final
== END ==
LOC: HO.CARD 14:03
PROVIDERS: PCP Internal Medicine; Visit Provider Internal Medicine
DX: I71.2 Thoracic aortic aneurysm, without rupture (principal); I48.91 Unspecified atrial fibrillation
CPT/HCPCS: 93306

== ENCOUNTER 2021-05-02 11:00 | Outpatient (RCR) | payer MEDICARE, SELFPAY ==
[2021-04-08 14:01] VITALS: BP 100/68; PULSE 105; O2SAT 86
== END 2021-10-04 13:42 | disposition home or self-care (01) ==
LOC: HO.PTWFD 11:00
PROVIDERS: PCP Internal Medicine; Visit Provider Internal Medicine
DX: H83.09 Labyrinthitis, unspecified ear (principal)
CPT/HCPCS: 95992; 97110; 97116; 97163; 97530; 97535

== ENCOUNTER 2021-05-10 12:45 | Emergency (ER) | payer MEDICARE, SELFPAY ==
--- NOTE | ~2021-05-10 | CT_ITS ---
EXAMINATION: CT HEAD WITHOUT CONTRAST CLINICAL INFORMATION: Expressive aphasia COMPARISON: Previous brain MRI head CT July 2019 TECHNIQUE: Contiguous axial imaging was performed from the skull base to vertex without intravenous administration of contrast. This CT examination was performed using dose optimization techniques as appropriate, variously including the following: *Automated exposure control *Adjustment of mA and/or kV according to patient size (this includes techniques or standardized protocols for targeted exams where dose is matched to indication/reason for exam; i.e. extremities or head) *Use of iterative reconstruction technique DLP: 970 mGy-cm FINDINGS: There is no evidence of an extra-axial collection. There is no evidence of intra-axial or extra-axial hemorrhage. The ventricles and extra-axial CSF spaces are appropriate. There is nonspecific periventricular white matter disease. 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 No mass, mass effect or acute infarct is seen. Review of bone windows is normal. No skull fracture is seen. Visualized paranasal sinuses, mastoid air cells and middle ears are clear. CT/CT head/brain wo con IMPRESSION: No acute intracranial findings. Old small left parietal infarct and nonspecific periventricular white matter disease.
--- NOTE | ~2021-05-10 | MR_ITS ---
MRI OF THE BRAIN WITHOUT IV CONTRAST INDICATION: Expressive aphasia. COMPARISON: Brain MRI 08/13/[address] 05/10/2021. TECHNIQUE: Multiplanar multisequence MR imaging of the brain was obtained without IV contrast. FINDINGS: There is moderate chronic microangiopathy and there is a chronic infarct within the posterior left insular and left temporal opercular region, unchanged. There is no hydrocephalus, extra-axial surface collection, or herniation. The major flow voids at the skull base are preserved. There is no acute infarct on diffusion-weighted imaging. There is no intracranial hemorrhage on the gradient recalled echo acquisition. The midline structures are normal. The cerebellar tonsils are normally positioned. The cerebellum and brainstem are normal. The craniocervical junction is normal. Osseous marrow signal intensity is homogenous. The visualized soft tissues are unremarkable. MR/MR head/brain wo con IMPRESSION: No acute intracranial findings. No acute infarcts. There is moderate chronic microangiopathy and there is a chronic infarct within the posterior left insular and left temporal opercular region, unchanged.
--- NOTE | ~2021-05-10 | XR_ITS ---
EXAMINATION: XR CHEST CLINICAL INFORMATION: Weakness COMPARISON: February 07, 2021 and August 12, 2019. TECHNIQUE: AP portable view of the chest was obtained. FINDINGS: There is continued elevation of the right hemidiaphragm. No definite acute parenchymal disease identified. No pneumothorax or significant pleural effusion. Heart normal size. No evidence of pulmonary edema. Status post previous right shoulder arthroplasty. XR/XR chest 1V IMPRESSION: Chronic elevation of the right hemidiaphragm. No definite acute parenchymal disease appreciated.
[2021-05-10 13:04] VITALS: BP 136/82; PULSE 88; O2SAT 96; BMI 29.1
--- NOTE | 2021-05-10 13:12 | ECG_ITS ---
Test Reason : AMS Blood Pressure : / mmHG Vent. Rate : 085 BPM Atrial Rate : 000 BPM P-R Int : 000 ms QRS Dur : 094 ms QT Int : 392 ms P-R-T Axes : 000 -11 047 degrees QTc Int : 466 ms Atrial fibrillation Incomplete right bundle branch block Nonspecific T wave abnormality Abnormal ECG When compared with ECG of 07-FEB-2021 18:53, Minimal criteria for Inferior infarct are no longer Present Nonspecific T wave abnormality no longer evident in Inferior leads QT has shortened Referred By: Antione More Electronically Signed By:MONTSE VARGAS MD
--- NOTE | 2021-05-10 13:39 | ED.AMS ---
HPI - Altered Mental Status General Chief Complaint: Altered Mental Status Stated Complaint: confusion Time Seen by Provider: 05/10/21 13:11 Source: patient and family () Mode of arrival: EMS Limitations: no limitations History of Present Illness HPI narrative: 71-year-old female came in for evaluation of progressive expressive aphasia. Brought in by ambulance and concerning of intermittent periods of disorientation and expressive aphasia that the patient will be searching for words to express herself, this noted by the patient herself and the for the past 4 weeks, symptoms are intermittent in between patient is fully normal. Otherwise no area of weakness or numbness. Related Data Home Medications Medication Instructions Recorded Confirmed apixaban 5 mg tablet (Eliquis) 5 mg PO BID 03/27/20 11/22/20 atorvastatin 40 mg tablet 40 mg PO DAILY 03/27/20 11/22/20 celecoxib 200 mg capsule 200 mg PO DAILY 03/27/20 11/22/20 conj estrogen-medroxyprogesterone 1 tab PO DAILY 03/27/20 11/22/20 0.625 mg-2.5 mg tablet (Prempro) levothyroxine 50 mcg capsule 50 mcg PO DAILY 03/27/20 11/22/20 lisinopril 20 1 tab PO DAILY 03/27/20 11/22/20 mg-hydrochlorothiazide 12.5 mg tablet metoprolol succinate 50 mg 50 mg PO DAILY 03/27/20 11/22/20 tablet,extended release 24 hr omeprazole 20 mg capsule,delayed 20 mg PO DAILY 03/27/20 11/22/20 release verapamil 120 mg 24 hr 120 mg PO DAILY 03/27/20 11/22/20 capsule,extended release Previous Rx's Medication Instructions Recorded tramadol 50 mg tablet 50 mg PO Q8H PRN #90 tab 09/21/20 cyclobenzaprine 10 mg tablet 10 mg PO TID #10 tab 02/08/21 nitrofurantoin 100 mg PO BID 7 Days #14 cap 02/12/21 monohydrate/macrocrystals 100 mg capsule (Macrobid) Allergies Allergy/AdvReac Type Severity Reaction Status Date / Time No Known Allergies Allergy Mild N/A Verified 03/26/21 13:30 FOR[facility]LY [facility] Past Medical History Medical History Anxiety Arthritis Asthma Carpal tunnel syndrome Chronic pain GERD (gastroesophageal reflux disease) HTN (hypertension) Hypothyroidism Obesity Persistent atrial fibrillation Primary osteoarthritis involving multiple joints Stroke Surgical History History of bladder surgery History of tonsillectomy Hx of cholecystectomy S/P foot surgery, right S/P panniculectomy Family History Family History Father CVD (cardiovascular disease) Diabetes Mother CVD (cardiovascular disease) HTN (hypertension) Social History Social History Alcohol intake: unknown Patient Tobacco Use Status: Current everyday Tobacco user e-Cigarette/Vaping Use: Never Used Use of substances other than those prescribed or required for medical reasons: No Advance Directives: No Advance Directives Information Provided: No Physical Exam ED Vital Signs: Vital Signs - 24 hr 05/10/21 14:53 Temperature 98.1 F Pulse Rate 86 Respiratory Rate 17 Blood Pressure 151/93 H Pulse Oximetry 95 BMI result Body Mass Index 29.1 Course Course Course Narrative: Assessment and plan. 71-year-old female came in with her for concern of intermittent expressive aphasia otherwise neuro exam is unremarkable NIH score is 0, head CT is unremarkable, labs are unremarkable awaiting for UA/MRI of the brain case signed out to Dr. Hicks to check on UA/MRI, if negative can be discharged and follow-up as an outpatient with neurologist. MDM - Altered Mental Status Lab Data Result diagrams: 05/10/21 14:40 05/10/21 14:40 Labs: Lab Results 05/10/21 05/10/21 05/10/21 Range/Units 14:40 14:40 14:40 WBC 6.1 (4.8-10.8) X10*3/uL RBC 3.92 L (4.20-5.50) X10*6/uL Hgb 11.0 L (12.0-16.0) g/dl Hct 34.2 L (37.0-47.0) % MCV 87.2 (80.0-98.0) fL MCH 28.1 (27.0-33.0) pg MCHC 32.2 (31.0-35.0) g/dl RDW 16.0 (11.0-16.0) % Plt Count 193 (160-400) X10*3/uL MPV 9.7 (9.4-12.3) fL Immature Gran % (Auto) 0.2 (0.0-0.4) % Neut % (Auto) 64.0 (45-73) % Lymph % (Auto) 22.9 (20-40) % [place] % (Auto) 10.4 (2-11) % Eos % (Auto) 1.8 (0-4) % Baso % (Auto) 0.7 (0-2) % Lymph # (Auto) 1.4 (1.2-4.9) X10*3/uL [place] # (Auto) 0.6 (0.1-1.2) X10*3/uL Eos # (Auto) 0.1 (0.0-0.4) X10*3/uL Baso # (Auto) 0.0 (0.0-0.2) X10*3/uL Abs Immat Gran (auto) 0.01 (0.00-0.03) X10*3/uL Absolute Neuts (auto) 3.9 (2.0-8.3) x10*3/uL Absolute Nucleated RBC 0.000 (0.0-0.012) X10*3/uL Nucleated RBC % (auto) 0.0 (0.0-0.2) /100WBC Sodium 138 (135-145) mmol/L Potassium 3.8 (3.3-5.1) mmol/L Chloride 97 (96-108) mmol/L Carbon Dioxide 34 H (22-29) mmol/L Anion Gap 11 L (12-20) BUN 15 (9-16) mg/dL Creatinine 0.83 (0.5-1.4) mg/dL Estim Creat Clear Calc 62.8 Estimated GFR > 60 Random Glucose 96 (60-115) mg/dL Lactic Acid (0.5-2.0) mmol/L Calcium 9.6 (8.4-10.2) mg/dL Total Bilirubin 0.3 (0.0-1.0) mg/dL Direct Bilirubin 0.3 (0.0-0.5) mg/dL AST 29 (5-31) U/L ALT 19 (0-31) U/L Alkaline Phosphatase 62 D (39-117) U/L Troponin I High Sens 4.0 (<3.5-17.0) ng/L B-Natriuretic Peptide (<100) pg/mL Total Protein 6.1 L (6.5-8.0) g/dL Albumin 3.5 (3.5-5.0) g/dL Lipase 17 (8-78) U/L COVID-19 (KEVIN) (Negative) COVID-19 Clin Com 05/10/21 05/10/21 05/10/21 Range/Units 14:40 14:40 14:40 WBC (4.8-10.8) X10*3/uL RBC (4.20-5.50) X10*6/uL Hgb (12.0-16.0) g/dl Hct (37.0-47.0) % MCV (80.0-98.0) fL MCH (27.0-33.0) pg MCHC (31.0-35.0) g/dl RDW (11.0-16.0) % Plt Count (160-400) X10*3/uL MPV (9.4-12.3) fL Immature Gran % (Auto) (0.0-0.4) % Neut % (Auto) (45-73) % Lymph % (Auto) (20-40) % [place] % (Auto) (2-11) % Eos % (Auto) (0-4) % Baso % (Auto) (0-2) % Lymph # (Auto) (1.2-4.9) X10*3/uL [place] # (Auto) (0.1-1.2) X10*3/uL Eos # (Auto) (0.0-0.4) X10*3/uL Baso # (Auto) (0.0-0.2) X10*3/uL Abs Immat Gran (auto) (0.00-0.03) X10*3/uL Absolute Neuts (auto) (2.0-8.3) x10*3/uL Absolute Nucleated RBC (0.0-0.012) X10*3/uL Nucleated RBC % (auto) (0.0-0.2) /100WBC Sodium (135-145) mmol/L Potassium (3.3-5.1) mmol/L Chloride (96-108) mmol/L Carbon Dioxide (22-29) mmol/L Anion Gap (12-20) BUN (9-16) mg/dL Creatinine (0.5-1.4) mg/dL Estim Creat Clear Calc Estimated GFR Random Glucose (60-115) mg/dL Lactic Acid 1.3 (0.5-2.0) mmol/L Calcium (8.4-10.2) mg/dL Total Bilirubin (0.0-1.0) mg/dL Direct Bilirubin (0.0-0.5) mg/dL AST (5-31) U/L ALT (0-31) U/L Alkaline Phosphatase (39-117) U/L Troponin I High Sens (<3.5-17.0) ng/L B-Natriuretic Peptide 607 H (<100) pg/mL Total Protein (6.5-8.0) g/dL Albumin (3.5-5.0) g/dL Lipase (8-78) U/L COVID-19 (KEVIN) Negative (Negative) COVID-19 Clin Com See Note Discharge Plan Discharge Clinical Impression: Weakness, Expressive aphasia Prescriptions: No Action cyclobenzaprine 10 mg tablet 10 mg PO TID Qty: 10 0RF nitrofurantoin monohyd/m-cryst [Macrobid] 100 mg capsule 100 mg PO BID 7 Days Qty: 14 0RF Rx Instructions: must administer with a meal/food Prempro 0.625-2.5 mg tablet 1 tab PO DAILY 0RF omeprazole 20 mg capsule,delayed release(DR/EC) 20 mg PO DAILY 0RF celecoxib 200 mg capsule 200 mg PO DAILY 0RF levothyroxine 50 mcg capsule 50 mcg PO DAILY 0RF Eliquis 5 mg tablet 5 mg PO BID 0RF atorvastatin 40 mg tablet 40 mg PO DAILY 0RF lisinopril-hydrochlorothiazide 20-12.5 mg tablet 1 tab PO DAILY 0RF verapamil 120 mg capsule,ext rel. pellets 24 hr 120 mg PO DAILY 0RF metoprolol succinate 50 mg tablet extended release 24 hr 50 mg PO DAILY 0RF tramadol 50 mg tablet 50 mg PO Q8H PRN (Reason: pain) Qty: 90 5RF
[2021-05-10] MEDS: 0.9 % Sodium Chloride 1,000 ML 999 ML IV (14:42)
[2021-05-10 14:46] LABS: MANUAL DIFF FLAG NO
[2021-05-10 14:49] LABS: Basophils Percent Auto 0.7 % (0-2); Eosinophils Absolute Auto 0.1 X10*3/uL (0.0-0.4); Eosinophils Percent Auto 1.8 % (0-4); Hematocrit 34.2 % (37.0-47.0); Imm Gran Abs Auto 0.01 X10*3/uL (0.00-0.03); Imm Gran Pct Auto 0.2 % (0.0-0.4); Lymphocytes Absolute Auto 1.4 X10*3/uL (1.2-4.9); Lymphocytes Percent Auto 22.9 % (20-40); Mean Corpuscular HGB Conc 32.2 g/dl (31.0-35.0); Mean Corpuscular Hemoglobin 28.1 pg (27.0-33.0); Mean Corpuscular Volume 87.2 fL (80.0-98.0); Mean Platelet Volume 9.7 fL (9.4-12.3); Monocytes Absolute Auto 0.6 X10*3/uL (0.1-1.2); Monocytes Percent Auto 10.4 % (2-11); Neutrophils Absolute Auto 3.9 x10*3/uL (2.0-8.3); Platelet Count 193 X10*3/uL (160-400); Red Blood Count 3.92 X10*6/uL (4.20-5.50); White Blood Count 6.1 X10*3/uL (4.8-10.8)
[2021-05-10 14:53] VITALS: BP 151/93; PULSE 86; RESP 17; TEMP 36.7; O2SAT 95
[2021-05-10 15:03] LABS: COVID-19 Test Negative (Negative)
[2021-05-10 15:07] LABS: Lactic Acid 1.3 mmol/L (0.5-2.0)
[2021-05-10 15:10] LABS: Alanine Aminotransferase 19 U/L (0-31); Albumin Level 3.5 g/dL (3.5-5.0); Alkaline Phosphatase 62 U/L (39-117); Anion Gap 11 (12-20); Aspartate Amino Transferase 29 U/L (5-31); Bilirubin Direct 0.3 mg/dL (0.0-0.5); Bilirubin Total 0.3 mg/dL (0.0-1.0); Blood Urea Nitrogen 15 mg/dL (9-16); Calcium 9.6 mg/dL (8.4-10.2); Carbon Dioxide 34 mmol/L (22-29); Chloride 97 mmol/L (96-108); Creatinine Clr Calc Pharmacy 62.8; Estimated Glomerular Filt Rate > 60; Glucose Random 96 mg/dL (60-115); Lipase 17 U/L (8-78); Potassium 3.8 mmol/L (3.3-5.1); Sodium 138 mmol/L (135-145); Total Protein 6.1 g/dL (6.5-8.0)
[2021-05-10 15:13] LABS: B Type Natriuretic Peptide 607 pg/mL (<100)
--- NOTE | 2021-05-10 15:21 | PC.NURSE ---
pt reports that she has been getting more and more confused and forgetful over the last week and a half. she states that she knows what she wants to say but is unable to get it out. pt's confirms her complaints. pt alert and oriented x3, vss. denies pain. will continue to monitor.
--- NOTE | 2021-05-10 15:35 | MHC.STROKE ---
Addendum entered by Keysha Pillai RN 05/10/21 15:57: PATIENT HAS AFIB AND I CHECKED TO SEE IF SHE IS COMPLIANT WITH HER ELIQUIS BID AND SHE AND HER SAID YES . SHE HAS BEEN ON IVF ANE HER LOC HAS IMPROVED. SHE WAS HERE IS 01/2021 + FOR UTI. SHE IS C/O OF URINARY PRESSURE AND WANTING TO URINATE BUT CANNOT. I NOTIFIED THE NURSE AND SHE WILL GET HER UP TO THE COMMODE. I DID RELAY THIS ADDITIONAL INFORMATION TO DR OWENS. Original Note: EMS PRE-NOTIFIED AT 1240, NOT A STROKE ALERT. ARRIVED AT 1245. C/O INCREASING APHASIA FOR THE PAST SEVERAL WEEKS. ASKED BY DR OWENS TO SEE THE PATIENT. PATIENT IS KNOWN TO THE STROKE SERVICE FROM HER PRIOR STROKE ON 09/01/2016 LEFT MCA WITH TPA GIVEN. AT THAT TIME SHE ALSO HAD EXPRESSIVE APHASIA AND WAS SEEN BY DR MORA. SHE HAD A ECHO WITH BUBBLE 09/06/2016 NO PFO NOTED. TODAY HER NIHSS =4. SHE IS UNABLE TO ANSWER BOTH QUESTIONS ACCURATELY, SHE IS SLOW TO ANSWER AND IS SEARCHING FOR HER WORDS, SHE HAS SOME DYSPHAGIA AND HAS A DELAYED SWALLOW BUT DID PASS THE SWALLOW SCREEN. SHE IS ALSO ATAXIC. SHE IS NOT ELIGIBLE FOR TPA-ALTEPLASE BASED ON UNKNOWN ONSET OF THESE SYMPTOMS. I DID EXPLAIN THAT TO THE . I HAVE INITIATED STROKE EDUCATION AND WILL CONTINUE TO FOLLOW.
[2021-05-10 16:37] LABS: Appearance Urine CLEAR; Color Urine YELLOW; Glucose Urine UA NEG (NEG); Leukocyte Esterase Urine 1+ (NEG); Nitrite Urine POS (NEG); PH 7.5 (5.0-8.0); Specific Gravity - Urine 1.015 (1.005-1.025); UACC Culture Trigger YES; Urine Blood NEG (NEG); Urine Ketones NEG (NEG); Urine Protein NEG (NEG-TRACE)
[2021-05-10 16:48] LABS: Amphetamine Screen Urine Not Detected (Not Detect); Barbiturates, Urine POSITIVE (Not Detect); Benzodiazepines Screen Urine Not Detected (Not Detect); Cannabinoid Screen Urine Not Detected (Not Detect); Cocaine Screen Urine Not Detected (Not Detect); Fentanyl, urine POSITIVE (Not Detect); Opiate Screen Urine POSITIVE (Not Detect); Phencyclidine Screen Urine Not Detected (Not Detect); RBC Urine 0 /HPF (0)
[2021-05-10 16:49] LABS: Bacteria Urine 4+ /LPF; Squamous Epithelial Cell Urine 1+ /LPF
[2021-05-10] MEDS: cefTRIAXone sodium 1 GM in 0.9 % Sodium Chloride 50 ML IV (17:17)
[2021-05-10 17:20] VITALS: BP 131/84; PULSE 86; RESP 17; O2SAT 98
[2021-05-10] MEDS: LORazepam 2 MG/ML VIAL 1 MG IVPUSH (17:33)
--- NOTE | 2021-05-10 17:57 | PC.NURSE ---
pt taken to MRI. pt requested something for anxiety prior to procedure. iv med given as documented. effectiveness pending
[2021-05-10 19:24] VITALS: BP 158/86; PULSE 79; RESP 16; TEMP 36.1; O2SAT 95
== END 2021-05-10 21:56 | disposition home or self-care (01) ==
PROVIDERS: Emergency Medicine; Emergency Provider Emergency Medicine; PCP Internal Medicine
DX: N39.0 Urinary tract infection, site not specified (principal); R53.1 Weakness; F80.1 Expressive language disorder; Z20.822 Contact with and (suspected) exposure to COVID-19; I10 Essential (primary) hypertension; I48.19 Other persistent atrial fibrillation; F17.200 Nicotine dependence, unspecified, uncomplicated; Z79.01 Long term (current) use of anticoagulants
CPT/HCPCS: 36415; 70450; 70551; 71045; 80048; 80076; 80307; 81001; 83605; 83690; 83880; 84484; 85025; 87086; 87088; 87186; 87635; 93005; 96361; 96365; 96375; 99285; J0696; J2060

== ENCOUNTER 2021-05-13 08:36 | Inpatient (IN) | payer MEDICARE, SELFPAY ==
--- NOTE | ~2021-05-13 | XR_ITS ---
EXAMINATION: XR LEFT ANKLE AND RIGHT KNEE CLINICAL INFORMATION: Ankle pain and right knee pain. COMPARISON: None. TECHNIQUE: Left ankle 3 views. Right knee 2 views. FINDINGS: Left ankle: There is moderate bimalleolar soft tissue swelling. The ankle mortise and subtalar joints are normal. There is a moderate-sized retrocalcaneal enthesophyte. Right knee: There is loss of tricompartment joint space with moderate suprapatellar joint effusion. There is moderate-sized superior patellar enthesophyte. No lytic or sclerotic process seen. XR/XR ankle LT min 3V IMPRESSION: Degenerative arthritic changes with moderate suprapatellar joint effusion. Moderate-sized superior patellar enthesophyte. No acute fracture seen. Bimalleolar soft tissue swelling. No visible fracture or dislocation seen.
--- NOTE | ~2021-05-13 | CT_ITS ---
EXAMINATION: CT PELVIS WITHOUT CONTRAST CT BILATERAL HIPS WITHOUT CONTRAST CLINICAL INFORMATION: Hip pain. Evaluate for fracture. COMPARISON: None TECHNIQUE: A noncontrast CT of the pelvis and bilateral hips is performed with sagittal and coronal reformats. This CT examination was performed using dose optimization techniques as appropriate, variously including the following: *Automated exposure control *Adjustment of mA and/or kV according to patient size (this includes techniques or standardized protocols for targeted exams where dose is matched to indication/reason for exam; i.e. extremities or head) *Use of iterative reconstruction technique DLP: 558 mGy-cm FINDINGS: There is no acute fracture of the pelvis or either hip. No evidence of AVN of the hips. Rtip-ud-odrjfbcb bilateral hip osteoarthritis. There is severe bilateral facet arthropathy at L4-L5 and L5-S1, and lgtpmkuc-sy-mjchex degenerative disc disease at L4-L5 and L5-S1. Zrmm-aw-kuyfcksk osteoarthritis of the sacroiliac joints and pubic symphysis. No adenopathy. Small amount of free fluid in the pelvis. CT/CT hip LT wo con IMPRESSION: No acute osseous abnormality. Severe facet arthropathy and moderate-severe degenerative disc disease at L4-L5 and L5-S1.
--- NOTE | ~2021-05-13 | XR_ITS ---
EXAMINATION: XR CHEST CLINICAL INFORMATION: Weakness. COMPARISON: Chest 05/10/2021 TECHNIQUE: Frontal view of the chest was obtained. FINDINGS: There is moderate elevation of right hemidiaphragm with hypoexpanded lungs. No acute consolidation seen. The heart size is normal. Vascularity is normal. There is mild*scoliosis of dorsolumbar spine. There is a right total shoulder prosthesis. No additional bony abnormality seen. XR/XR chest 1V IMPRESSION: Elevated right hemidiaphragm. The lungs are clear.
--- NOTE | ~2021-05-13 | CT_ITS ---
EXAMINATION: CT PELVIS WITHOUT CONTRAST CT BILATERAL HIPS WITHOUT CONTRAST CLINICAL INFORMATION: Hip pain. Evaluate for fracture. COMPARISON: None TECHNIQUE: A noncontrast CT of the pelvis and bilateral hips is performed with sagittal and coronal reformats. This CT examination was performed using dose optimization techniques as appropriate, variously including the following: *Automated exposure control *Adjustment of mA and/or kV according to patient size (this includes techniques or standardized protocols for targeted exams where dose is matched to indication/reason for exam; i.e. extremities or head) *Use of iterative reconstruction technique DLP: 558 mGy-cm FINDINGS: There is no acute fracture of the pelvis or either hip. No evidence of AVN of the hips. Afkp-ie-gmdnnlan bilateral hip osteoarthritis. There is severe bilateral facet arthropathy at L4-L5 and L5-S1, and hrhdcojb-dc-xnuodw degenerative disc disease at L4-L5 and L5-S1. Fbxg-tb-aotwmqld osteoarthritis of the sacroiliac joints and pubic symphysis. No adenopathy. Small amount of free fluid in the pelvis. CT/CT pelvis wo con IMPRESSION: No acute osseous abnormality. Severe facet arthropathy and moderate-severe degenerative disc disease at L4-L5 and L5-S1.
--- NOTE | ~2021-05-13 | XR_ITS ---
EXAMINATION: XR LEFT ANKLE AND RIGHT KNEE CLINICAL INFORMATION: Ankle pain and right knee pain. COMPARISON: None. TECHNIQUE: Left ankle 3 views. Right knee 2 views. FINDINGS: Left ankle: There is moderate bimalleolar soft tissue swelling. The ankle mortise and subtalar joints are normal. There is a moderate-sized retrocalcaneal enthesophyte. Right knee: There is loss of tricompartment joint space with moderate suprapatellar joint effusion. There is moderate-sized superior patellar enthesophyte. No lytic or sclerotic process seen. XR/XR knee RT 2V IMPRESSION: Degenerative arthritic changes with moderate suprapatellar joint effusion. Moderate-sized superior patellar enthesophyte. No acute fracture seen. Bimalleolar soft tissue swelling. No visible fracture or dislocation seen.
--- NOTE | ~2021-05-13 | US_ITS ---
EXAMINATION: US PELVIS CLINICAL INFORMATION: Vaginal bleeding. COMPARISON: CT pelvis dated from 05/14/2021. Postmenopausal. On blood thinners. TECHNIQUE: Transabdominal images were performed utilizing grayscale and color Doppler. FINDINGS: Uterus: The uterus is anteverted and measures 6.4 x 2.6 x 4.8 cm. The double wall endometrial thickness is 4 mm. The uterus is smooth in contour and has normal myometrial echogenicity. No visible fibroid. Adnexa: The left ovary is not visualized. There is no pelvic ascites or fluid collection. Right ovary measures 1.5 x 1.0 x 1.6 with normal morphology and preserved flow at the moment of this examination. Others: Partially imaged debris in the urinary bladder. US/US pelvic complete IMPRESSION: Aside from debris in the urinary bladder which could be related with cystitis, the examination is unremarkable with the caveat that the left ovary was not visualized. Correlate with urinalysis. However, if symptoms persist, referral to [facility] is recommended for tissue sampling of the endometrium to rule out endometrial hyperplasia/neoplasia.
--- NOTE | ~2021-05-13 | CT_ITS ---
EXAMINATION: CT PELVIS WITHOUT CONTRAST CT BILATERAL HIPS WITHOUT CONTRAST CLINICAL INFORMATION: Hip pain. Evaluate for fracture. COMPARISON: None TECHNIQUE: A noncontrast CT of the pelvis and bilateral hips is performed with sagittal and coronal reformats. This CT examination was performed using dose optimization techniques as appropriate, variously including the following: *Automated exposure control *Adjustment of mA and/or kV according to patient size (this includes techniques or standardized protocols for targeted exams where dose is matched to indication/reason for exam; i.e. extremities or head) *Use of iterative reconstruction technique DLP: 558 mGy-cm FINDINGS: There is no acute fracture of the pelvis or either hip. No evidence of AVN of the hips. Yrjp-yh-voydsrst bilateral hip osteoarthritis. There is severe bilateral facet arthropathy at L4-L5 and L5-S1, and ylwldfxh-oh-xeqevn degenerative disc disease at L4-L5 and L5-S1. Pqvl-ld-qphxvrqo osteoarthritis of the sacroiliac joints and pubic symphysis. No adenopathy. Small amount of free fluid in the pelvis. CT/CT hip RT wo con IMPRESSION: No acute osseous abnormality. Severe facet arthropathy and moderate-severe degenerative disc disease at L4-L5 and L5-S1.
[2021-05-13 08:53] VITALS: BP 149/89; PULSE 115; RESP 20; TEMP 37.1; O2SAT 96; BMI 33.1
--- NOTE | 2021-05-13 08:56 | ECG_ITS ---
Test Reason : AMS Blood Pressure : / mmHG Vent. Rate : 114 BPM Atrial Rate : 000 BPM P-R Int : 000 ms QRS Dur : 092 ms QT Int : 328 ms P-R-T Axes : 000 -07 -57 degrees QTc Int : 452 ms Atrial fibrillation with rapid ventricular response Incomplete right bundle branch block T wave abnormality, consider anterior ischemia Abnormal ECG When compared with ECG of 10-MAY-2021 13:53, No significant change was found Referred By: Andressa Hicks Electronically Signed By:ANILA BATES
--- NOTE | 2021-05-13 09:02 | ED_ITS ---
HPI - Altered Mental Status General Chief Complaint: Altered Mental Status Stated Complaint: RECENT DX UTI,NOT ACTING RIGHT PER Time Seen by Provider: 05/13/21 08:40 Source: patient and old records reviewed Mode of arrival: EMS Limitations: altered mental status (slight confusion) History of Present Illness HPI narrative: seen here on Thursday negative MRI for 4 weeks of behavior changes dx with UTI sent home on ceftin - review of chart shows ESBL + urine at this time she still seems weak and confused EMS called - EMS notes 2 bottles of percocets at the bedside partner told EMS they cannot care for patient. MD complaint: confusion and weakness Onset (ago): week(s) (4) Timing confirmed by: spouse Severity: moderate Consistency of symptoms: getting Worse Context: history of similar presentation and other (on eliquis) Associated symptoms: loss of appetite and malaise Treatments prior to arrival: other (was Rx ceftin but will not treat urine culture) Related Data Home Medications Medication Instructions Recorded Confirmed apixaban 5 mg tablet (Eliquis) 5 mg PO BID 03/27/20 05/13/21 atorvastatin 40 mg tablet 40 mg PO DAILY 03/27/20 05/13/21 celecoxib 200 mg capsule 200 mg PO DAILY 03/27/20 05/13/21 conj estrogen-medroxyprogesterone 1 tab PO DAILY 03/27/20 05/13/21 0.625 mg-2.5 mg tablet (Prempro) levothyroxine 50 mcg capsule 50 mcg PO DAILY 03/27/20 05/13/21 lisinopril 20 1 tab PO DAILY 03/27/20 05/13/21 mg-hydrochlorothiazide 12.5 mg tablet metoprolol succinate 50 mg 50 mg PO DAILY 03/27/20 05/13/21 tablet,extended release 24 hr omeprazole 20 mg capsule,delayed 20 mg PO DAILY 03/27/20 05/13/21 release verapamil 120 mg 24 hr 120 mg PO DAILY 03/27/20 05/13/21 capsule,extended release cmhkmtrmpq-jbgmcnvpnvfhg-koceuxam 1 tab PO DAILY PRN 05/13/21 05/13/21 50 mg-325 mg-40 mg tablet gabapentin 400 mg capsule 1 cap PO QID 05/13/21 05/13/21 hydrocodone 5 mg-acetaminophen 325 1 tab PO BID PRN 02/21/22 02/21/22 mg tablet meclizine 25 mg tablet 1 tab PO BID PRN 05/13/21 05/13/21 mirabegron 25 mg tablet,extended 1 tab PO DAILY 05/13/21 05/13/21 release 24 hr (Myrbetriq) ondansetron HCl 4 mg tablet 1 tab PO BEDTIME 05/13/21 05/13/21 Previous Rx's Medication Instructions Recorded tramadol 50 mg tablet 50 mg PO Q8H PRN #90 tab 09/21/20 cyclobenzaprine 10 mg tablet 10 mg PO TID #10 tab 02/08/21 cefuroxime axetil 250 mg tablet 250 mg PO BID 7 Days #14 tab 05/10/21 Allergies Allergy/AdvReac Type Severity Reaction Status Date / Time No Known Allergies Allergy Mild N/A Verified 05/13/21 09:01 Review of Systems Review of Systems: ROS unable to be obtained due to altered mental status [facility] Past Medical History Source: old records reviewed Medical History Anxiety Arthritis Asthma Carpal tunnel syndrome Chronic pain GERD (gastroesophageal reflux disease) HTN (hypertension) Hypothyroidism Obesity Persistent atrial fibrillation Primary osteoarthritis involving multiple joints Stroke Surgical History History of bladder surgery History of tonsillectomy Hx of cholecystectomy S/P foot surgery, right S/P panniculectomy Family History Family History Father CVD (cardiovascular disease) Diabetes Mother CVD (cardiovascular disease) HTN (hypertension) Social History Social History Alcohol intake: unknown Patient Tobacco Use Status: Current everyday Tobacco user e-Cigarette/Vaping Use: Never Used Advance Directives: Yes Advance Directives Information Provided: No Advance Directives on File: No Physical Exam ED Vital Signs: Vital Signs - 24 hr 05/13/21 08:53 Temperature 98.8 F Pulse Rate 115 H Respiratory Rate 20 Blood Pressure 149/89 H Pulse Oximetry 96 BMI result Body Mass Index 33.1 Appearance: Alert. Oriented X2 (time). No acute distress. Eyes: Pupils equal, round and reactive to light. ENT: Pharynx normal. Neck: Normal inspection. Neck supple. CVS: tachycardic and irregular heart rate and rhythm. Pulses normal. Respiratory: No respiratory distress. Breath sounds normal. Abdomen: Soft and nontender. Skin: Skin warm and dry. pale skin color. Normal skin turgor. Extremities: 1+ pitting lower extremity edema. No calf ttp Neuro: Oriented X 2(time). No motor deficit. No sensory deficit. Course Course Course Narrative: Urine Culture Final 05/12/21 Organism 1 Klebsiella oxytoca Quant > 100,000 cfu/mL ESBL Note: NOTE: Extended-Spectrum Beta-Lactamase enzyme present Organism 2 Enterococcus faecalis Quant 50,000 to 100,000 cfu/mL Kleb oxyto E faecalis M.I.C. RX M.I.C. RX --------- --- --------- --- Ampicillin >=32 R <=2 S Extended Spectrum Beta Lactam POS + Ceftriaxone 8 S Gentamicin <=1 S Levofloxacin <=0.12 S 1 S Nitrofurantoin <=16 S <=16 S Tetracycline >=16 R Trimethoprim/Sulfamethoxazole <=20 S Vancomycin 2 S will admit for IV antibiotics MDM - Altered Mental Status MDM Narrative Medical decision making narrative: 71 yo female with hx of afib on eliquis, CVA, UTI, HLD, headaches, chronic back pain on opiates, just seen here on Thursday with negative MRI 4 weeks of symptoms, sent home on ceftin but ESBL+ at this time will repeat labs, UA, CXR and start on meropenem. Planned admit no falls reported. Just had MRI with behavior changes x 3 weeks will hold off on CT head atraumatic ENT exam. I suspect there is possibly a component of opiate misuse at this time as EMS reports finding two bottles of narcotics at the bedside and patient just tested positive for fentanyl on Thursday. Lab Data Result diagrams: 05/13/21 11:18 05/13/21 11:18 Labs: Lab Results 05/13/21 05/13/21 05/13/21 Range/Units 10:19 10:55 11:18 WBC 11.4 H (4.8-10.8) X10*3/uL RBC 4.29 (4.20-5.50) X10*6/uL Hgb 12.0 (12.0-16.0) g/dl Hct 36.6 L (37.0-47.0) % MCV 85.3 (80.0-98.0) fL MCH 28.0 (27.0-33.0) pg MCHC 32.8 (31.0-35.0) g/dl RDW 15.9 (11.0-16.0) % Plt Count 181 (160-400) X10*3/uL MPV 9.7 (9.4-12.3) fL Immature Gran % (Auto) 0.4 (0.0-0.4) % Neut % (Auto) 80.9 H (45-73) % Lymph % (Auto) 9.4 L (20-40) % [place] % (Auto) 9.0 (2-11) % Eos % (Auto) 0.0 (0-4) % Baso % (Auto) 0.3 (0-2) % Lymph # (Auto) 1.1 L (1.2-4.9) X10*3/uL [place] # (Auto) 1.0 (0.1-1.2) X10*3/uL Eos # (Auto) 0.0 (0.0-0.4) X10*3/uL Baso # (Auto) 0.0 (0.0-0.2) X10*3/uL Abs Immat Gran (auto) 0.05 H (0.00-0.03) X10*3/uL Absolute Neuts (auto) 9.2 H (2.0-8.3) x10*3/uL Absolute Nucleated RBC 0.000 (0.0-0.012) X10*3/uL Nucleated RBC % (auto) 0.0 (0.0-0.2) /100WBC PT (9.9-13.0) SEC INR (0.9-1.1) VBG pH (7.32-7.43) VBG pCO2 mmHg VBG pO2 mmHg VBG HCO3 (22-26) mmol/L VBG O2 Saturation % VBG Base Excess mmol/L Sodium (135-145) mmol/L Potassium (3.3-5.1) mmol/L Chloride (96-108) mmol/L Carbon Dioxide (22-29) mmol/L Anion Gap (12-20) BUN (9-16) mg/dL Creatinine (0.5-1.4) mg/dL Estim Creat Clear Calc Estimated GFR Random Glucose (60-115) mg/dL Lactic Acid (0.5-2.0) mmol/L Calcium (8.4-10.2) mg/dL Magnesium (1.6-2.6) mg/dL Total Bilirubin (0.0-1.0) mg/dL Direct Bilirubin (0.0-0.5) mg/dL AST (5-31) U/L ALT (0-31) U/L Alkaline Phosphatase (39-117) U/L Troponin I High Sens (<3.5-17.0) ng/L Total Protein (6.5-8.0) g/dL Albumin (3.5-5.0) g/dL Urine Color YELLOW Urine Appearance HAZY Urine pH 7.0 (5.0-8.0) Ur Specific [place] 1.020 (1.005-1.025) Urine Protein TRACE (NEG-TRACE) MG/DL Urine Glucose (UA) NEG (NEG) MG/DL Urine Ketones 40 (NEG) MG/DL Urine Blood TRACE (NEG) Urine Nitrite NEG (NEG) Ur Leukocyte Esterase NEG (NEG) Urine RBC 0 (0) /HPF Urine WBC 0-2 (0-4) /HPF Ur Squamous Epith Cells TRACE /LPF Amorphous Sediment 3+ /LPF Urine Bacteria NONE /LPF COVID-19 (KEVIN) Negative (Negative) COVID-19 Clin Com See Note 05/13/21 05/13/21 05/13/21 Range/Units 11:18 11:18 11:18 WBC (4.8-10.8) X10*3/uL RBC (4.20-5.50) X10*6/uL Hgb (12.0-16.0) g/dl Hct (37.0-47.0) % MCV (80.0-98.0) fL MCH (27.0-33.0) pg MCHC (31.0-35.0) g/dl RDW (11.0-16.0) % Plt Count (160-400) X10*3/uL MPV (9.4-12.3) fL Immature Gran % (Auto) (0.0-0.4) % Neut % (Auto) (45-73) % Lymph % (Auto) (20-40) % [place] % (Auto) (2-11) % Eos % (Auto) (0-4) % Baso % (Auto) (0-2) % Lymph # (Auto) (1.2-4.9) X10*3/uL [place] # (Auto) (0.1-1.2) X10*3/uL Eos # (Auto) (0.0-0.4) X10*3/uL Baso # (Auto) (0.0-0.2) X10*3/uL Abs Immat Gran (auto) (0.00-0.03) X10*3/uL Absolute Neuts (auto) (2.0-8.3) x10*3/uL Absolute Nucleated RBC (0.0-0.012) X10*3/uL Nucleated RBC % (auto) (0.0-0.2) /100WBC PT 14.8 H (9.9-13.0) SEC INR 1.3 H (0.9-1.1) VBG pH (7.32-7.43) VBG pCO2 mmHg VBG pO2 mmHg VBG HCO3 (22-26) mmol/L VBG O2 Saturation % VBG Base Excess mmol/L Sodium 135 (135-145) mmol/L Potassium 3.4 (3.3-5.1) mmol/L Chloride 95 L (96-108) mmol/L Carbon Dioxide 26 (22-29) mmol/L Anion Gap 17 (12-20) BUN 15 (9-16) mg/dL Creatinine 0.76 (0.5-1.4) mg/dL Estim Creat Clear Calc 68.0 Estimated GFR > 60 Random Glucose 96 (60-115) mg/dL Lactic Acid 1.5 (0.5-2.0) mmol/L Calcium 9.5 (8.4-10.2) mg/dL Magnesium 1.2 L* (1.6-2.6) mg/dL Total Bilirubin 1.0 (0.0-1.0) mg/dL Direct Bilirubin 0.5 (0.0-0.5) mg/dL AST 30 (5-31) U/L ALT 26 (0-31) U/L Alkaline Phosphatase 59 (39-117) U/L Troponin I High Sens (<3.5-17.0) ng/L Total Protein 6.5 (6.5-8.0) g/dL Albumin 3.8 (3.5-5.0) g/dL Urine Color Urine Appearance Urine pH (5.0-8.0) Ur Specific [place] (1.005-1.025) Urine Protein (NEG-TRACE) MG/DL Urine Glucose (UA) (NEG) MG/DL Urine Ketones (NEG) MG/DL Urine Blood (NEG) Urine Nitrite (NEG) Ur Leukocyte Esterase (NEG) Urine RBC (0) /HPF Urine WBC (0-4) /HPF Ur Squamous Epith Cells /LPF Amorphous Sediment /LPF Urine Bacteria /LPF COVID-19 (KEVIN) (Negative) COVID-19 Clin Com 05/13/21 05/13/21 05/13/21 Range/Units 11:18 11:21 13:43 WBC (4.8-10.8) X10*3/uL RBC (4.20-5.50) X10*6/uL Hgb (12.0-16.0) g/dl Hct (37.0-47.0) % MCV (80.0-98.0) fL MCH (27.0-33.0) pg MCHC (31.0-35.0) g/dl RDW (11.0-16.0) % Plt Count (160-400) X10*3/uL MPV (9.4-12.3) fL Immature Gran % (Auto) (0.0-0.4) % Neut % (Auto) (45-73) % Lymph % (Auto) (20-40) % [place] % (Auto) (2-11) % Eos % (Auto) (0-4) % Baso % (Auto) (0-2) % Lymph # (Auto) (1.2-4.9) X10*3/uL [place] # (Auto) (0.1-1.2) X10*3/uL Eos # (Auto) (0.0-0.4) X10*3/uL Baso # (Auto) (0.0-0.2) X10*3/uL Abs Immat Gran (auto) (0.00-0.03) X10*3/uL Absolute Neuts (auto) (2.0-8.3) x10*3/uL Absolute Nucleated RBC (0.0-0.012) X10*3/uL Nucleated RBC % (auto) (0.0-0.2) /100WBC PT (9.9-13.0) SEC INR (0.9-1.1) VBG pH 7.46 H (7.32-7.43) VBG pCO2 37 mmHg VBG pO2 41 mmHg VBG HCO3 27 H (22-26) mmol/L VBG O2 Saturation 61.0 % VBG Base Excess 3.3 mmol/L Sodium (135-145) mmol/L Potassium (3.3-5.1) mmol/L Chloride (96-108) mmol/L Carbon Dioxide (22-29) mmol/L Anion Gap (12-20) BUN (9-16) mg/dL Creatinine (0.5-1.4) mg/dL Estim Creat Clear Calc Estimated GFR Random Glucose (60-115) mg/dL Lactic Acid (0.5-2.0) mmol/L Calcium (8.4-10.2) mg/dL Magnesium (1.6-2.6) mg/dL Total Bilirubin (0.0-1.0) mg/dL Direct Bilirubin (0.0-0.5) mg/dL AST (5-31) U/L ALT (0-31) U/L Alkaline Phosphatase (39-117) U/L Troponin I High Sens 21.4 H D 21.9 H (<3.5-17.0) ng/L Total Protein (6.5-8.0) g/dL Albumin (3.5-5.0) g/dL Urine Color Urine Appearance Urine pH (5.0-8.0) Ur Specific [place] (1.005-1.025) Urine Protein (NEG-TRACE) MG/DL Urine Glucose (UA) (NEG) MG/DL Urine Ketones (NEG) MG/DL Urine Blood (NEG) Urine Nitrite (NEG) Ur Leukocyte Esterase (NEG) Urine RBC (0) /HPF Urine WBC (0-4) /HPF Ur Squamous Epith Cells /LPF Amorphous Sediment /LPF Urine Bacteria /LPF COVID-19 (KEVIN) (Negative) COVID-19 Clin Com ECG Data ECG #1: Attestation: I personally reviewed and interpreted this ECG as follows: ECG interpretation date: 05/13/21 ECG interpretation time: 09:21 Interpretation: Rate: 114 Rhythm: afib with RVR Strawn: left Normal QRS complex. ST T wave : no HCU, inverted t waves anterior leads qTC: normal prior studies: no sig change from Jan 2021 The study has been interpreted contemporaneously by me. . Discharge Plan Discharge Clinical Impression: Urinary tract infection due to ESBL Klebsiella, Weakness, Hypomagnesemia Altered mental status Qualifiers: Altered mental status type: unspecified Qualified Code(s): R41.82 - Altered mental status, unspecified Patient Disposition: Admitted As Inpatient
[2021-05-13 10:44] LABS: COVID-19 Test Negative (Negative); IDNOW Serial# 55D5AD1C
--- NOTE | 2021-05-13 10:49 | PHA.MEDREC ---
Pharmacy Consult ? Medication Reconciliation Pharmacy has completed the medication reconciliation. Med rec completed based on claim history as patient is not able to discuss medications at this time
[2021-05-13 11:05] LABS: Appearance Urine HAZY; Color Urine YELLOW; Glucose Urine UA NEG (NEG); Leukocyte Esterase Urine NEG (NEG); Nitrite Urine NEG (NEG); UACC Culture Trigger NO; Urine Blood TRACE (NEG); Urine Ketones 40 MG/DL (NEG); Urine Protein TRACE MG/DL (NEG-TRACE)
[2021-05-13 11:22] LABS: MANUAL DIFF FLAG NO
[2021-05-13 11:24] LABS: Basophils Percent Auto 0.3 % (0-2); Hematocrit 36.6 % (37.0-47.0); Imm Gran Abs Auto 0.05 X10*3/uL (0.00-0.03); Imm Gran Pct Auto 0.4 % (0.0-0.4); Lymphocytes Absolute Auto 1.1 X10*3/uL (1.2-4.9); Lymphocytes Percent Auto 9.4 % (20-40); Mean Corpuscular HGB Conc 32.8 g/dl (31.0-35.0); Mean Corpuscular Volume 85.3 fL (80.0-98.0); Mean Platelet Volume 9.7 fL (9.4-12.3); Neutrophils Absolute Auto 9.2 x10*3/uL (2.0-8.3); Neutrophils Percent Auto 80.9 % (45-73); Platelet Count 181 X10*3/uL (160-400); Red Blood Count 4.29 X10*6/uL (4.20-5.50); Red Cell Distribution Width 15.9 % (11.0-16.0); White Blood Count 11.4 X10*3/uL (4.8-10.8)
[2021-05-13 11:32] LABS: INTERNATIONAL NORM RATIO 1.3 (0.9-1.1); Prothrombin Time 14.8 SEC (9.9-13.0)
[2021-05-13 11:35] LABS: Lactic Acid 1.5 mmol/L (0.5-2.0)
[2021-05-13] MEDS: dilTIAZem HCL 50 MG/10 ML VIAL IVPUSH (11:42)
[2021-05-13 11:43] LABS: Troponin-I High Sensitivity 21.4 ng/L (<3.5-17.0)
[2021-05-13 11:44] LABS: WBC Urine 0-2 /HPF (0-4)
[2021-05-13 11:46] LABS: Amorphous Sediment Urine 3+ /LPF; RBC Urine 0 /HPF (0); Squamous Epithelial Cell Urine TRACE /LPF
[2021-05-13 11:50] LABS: Alanine Aminotransferase 26 U/L (0-31); Albumin Level 3.8 g/dL (3.5-5.0); Alkaline Phosphatase 59 U/L (39-117); Anion Gap 17 (12-20); Aspartate Amino Transferase 30 U/L (5-31); Bilirubin Direct 0.5 mg/dL (0.0-0.5); Blood Urea Nitrogen 15 mg/dL (9-16); Calcium 9.5 mg/dL (8.4-10.2); Carbon Dioxide 26 mmol/L (22-29); Chloride 95 mmol/L (96-108); Estimated Glomerular Filt Rate > 60; Glucose Random 96 mg/dL (60-115); Magnesium 1.2 mg/dL (1.6-2.6); Potassium 3.4 mmol/L (3.3-5.1); Sodium 135 mmol/L (135-145); Total Protein 6.5 g/dL (6.5-8.0)
[2021-05-13 12:35] LABS: Venous Blood Gas Refer to POC result
[2021-05-13 12:35] LABS: VBG Base Excess 3.3 mmol/L; VBG HCO3 27 mmol/L (22-26); VBG pCO2 37 mmHg; VBG pH 7.46 (7.32-7.43); VBG pO2 41 mmHg
[2021-05-13] MEDS: Magnesium Sulfate/H2O 2 GM/50 ML PIGGYBACK IV (13:00)
[2021-05-13] MEDS: dilTIAZem HCL 50 MG/10 ML VIAL 10 MG IVPUSH (13:27)
[2021-05-13 14:11] LABS: Troponin-I High Sensitivity 21.9 ng/L (<3.5-17.0)
--- NOTE | 2021-05-13 14:55 | PM.IMHP ---
History of Present Illness Date of Service: 05/13/21 Chief Complaint: Altered Mental Status 71 year female with Anxiety, Arthritis, Asthma, Carpal tunnel syndrome, Chronic pain, GERD (gastroesophageal reflux disease), HTN (hypertension), Hypothyroidism, Obesity, Persistent atrial fibrillation with history of stroke and is on Eliquis, Primary osteoarthritis, involving multiple joints, who is presenting with confusing and weakness. She was seen in the ED 3 days ago with similar presentation at that time had MRI which was negative, UA at that time was positive and was discharged with Ceftub now culture is showing ESBL + Klebsiela and enterococcus. She lives with a significant other who is not able to care for her. She is presently confused and not able to offer any signifant meaningful story. Review of Systems Review of Systems: Yes Unobtainable due to mental status [facility] Medical History Anxiety Arthritis Asthma Carpal tunnel syndrome Chronic pain GERD (gastroesophageal reflux disease) HTN (hypertension) Hypothyroidism Obesity Persistent atrial fibrillation Primary osteoarthritis involving multiple joints Stroke Family History Father CVD (cardiovascular disease) Diabetes Mother CVD (cardiovascular disease) HTN (hypertension) Surgical History History of bladder surgery History of tonsillectomy Hx of cholecystectomy S/P foot surgery, right S/P panniculectomy Social History Alcohol intake: unknown Patient Tobacco Use Status: Current everyday Tobacco user e-Cigarette/Vaping Use: Never Used Advance Directives: Yes Advance Directives Information Provided: No Advance Directives on File: No Meds Allergies Allergy/AdvReac Type Severity Reaction Status Date / Time No Known Allergies Allergy Mild N/A Verified 05/13/21 09:01 Active Medications: Current Medications Pharmacy Consult (Consult Rx Perform Med Rec) 1 each MISCELLANE ONCE PRN PRN Reason: Consult order Home Medications Medication Instructions Recorded Confirmed Last Taken Type apixaban 5 mg tablet (Eliquis) 5 mg PO BID 03/27/20 05/13/21 05/12/21 History atorvastatin 40 mg tablet 40 mg PO DAILY 03/27/20 05/13/21 05/12/21 History celecoxib 200 mg capsule 200 mg PO DAILY 03/27/20 05/13/21 05/12/21 History conj estrogen-medroxyprogesterone 1 tab PO DAILY 03/27/20 05/13/21 05/12/21 History 0.625 mg-2.5 mg tablet (Prempro) levothyroxine 50 mcg capsule 50 mcg PO DAILY 03/27/20 05/13/21 05/12/21 History lisinopril 20 1 tab PO DAILY 03/27/20 05/13/21 05/12/21 History mg-hydrochlorothiazide 12.5 mg tablet metoprolol succinate 50 mg 50 mg PO DAILY 03/27/20 05/13/21 05/12/21 History tablet,extended release 24 hr omeprazole 20 mg capsule,delayed 20 mg PO DAILY 03/27/20 05/13/21 05/12/21 History release verapamil 120 mg 24 hr 120 mg PO DAILY 03/27/20 05/13/21 05/12/21 History capsule,extended release myofwoqqlj-haonrxrxdpumb-afiolccq 1 tab PO DAILY PRN 05/13/21 05/13/21 Unknown History 50 mg-325 mg-40 mg tablet gabapentin 400 mg capsule 1 cap PO QID 05/13/21 05/13/21 05/12/21 History hydrocodone 5 mg-acetaminophen 325 1 tab PO BID PRN 05/13/21 05/13/21 Unknown History mg tablet meclizine 25 mg tablet 1 tab PO BID PRN 05/13/21 05/13/21 Unknown History mirabegron 25 mg tablet,extended 1 tab PO DAILY 05/13/21 05/13/21 05/12/21 History release 24 hr (Myrbetriq) ondansetron HCl 4 mg tablet 1 tab PO BEDTIME 05/13/21 05/13/21 05/12/21 History Physical Exam Vital Signs and Narrative: Vital Signs: Last Vital Signs Temp 98.8 F 05/13/21 08:53 Pulse 115 H 05/13/21 08:53 Resp 20 05/13/21 08:53 BP 149/89 H 05/13/21 08:53 Pulse Ox 96 05/13/21 08:53 BMI result Body Mass Index 33.1 Results Labs CBC and Chem 7: 05/13/21 11:18 05/13/21 11:18 Imaging Radiologist's Impressions: Impressions Chest X-Ray 05/13/21 09:20 IMPRESSION: Elevated right hemidiaphragm. The lungs are clear. Assessment and Plan Plan 71/f with multiple medical issues including history of AFIB, stroke, here with confusion and found to have UTI, likely has encephalopathy from UTI. 1/Toxic encephalopathy likely from UTI -Treate Underlying UTI, Hydrate 2/Polymicrobial UTI (Klebsiela and E. Feacalis) Organism 1 Klebsiella oxytoca Quant > 100,000 cfu/mL ESBL Note: NOTE: Extended-Spectrum Beta-Lactamase enzyme present Organism 2 Enterococcus faecalis Quant 50,000 to 100,000 cfu/mL Kleb oxyto E faecalis M.I.C. RX M.I.C. RX --------- --- --------- --- Ampicillin >=32 R <=2 S Extended Spectrum Beta Lactam POS + Ceftriaxone 8 S Gentamicin <=1 S Levofloxacin <=0.12 S 1 S Nitrofurantoin <=16 S <=16 S Tetracycline >=16 R Trimethoprim/Sulfamethoxazole <=20 S Vancomycin 2 S --Use levaquin as covers both 3/Peristent AFIB--Continue Metoprolol, Verapamil and Eliquis 4/HTN--Verapamil, Lisinopril, HCTZ, and Metoprolol 5/HLD--Lipitor 6/Hypothyroidism--Levothyroxin 7/GERD--PPI 8/Neuropathy--Gabapentin 9/Hypomagnesemia--Replaced, repeat level tomorrow 10/ DVT prophylaxis-- Eliquis Quality Stroke Does the patient have a stroke diagnosis?: No VTE Prior VTE?: No VTE Risk Level:: Medical - moderate - high VTE Device Contraindication: Treatment Not Indicated VTE Drug Contraindication: N/A - Med Ordered
[2021-05-13] MEDS: 0.9 % Sodium Chloride 1,000 ML 100 ML IVCONT (16:48)
[2021-05-13 16:50] VITALS: BP 152/83; PULSE 103; RESP 21; O2SAT 97
[2021-05-13] MEDS: 0.9 % Sodium Chloride Flush 3 ML SYRINGE IVFLUSH ×2 (16:50→20:23)
--- NOTE | 2021-05-13 16:57 | PC.NURSE ---
Vicky Foster (patient sister)-[phone]
[2021-05-13] MEDS: Gabapentin 400 MG CAPSULE PO (16:58)
[2021-05-13 19:34] VITALS: BP 156/85; PULSE 117; RESP 18; TEMP 36.6; O2SAT 96
--- NOTE | 2021-05-13 19:36 | PC.NURSE ---
Pt alert and confused,oriented to self only at this time. IV intact. Vitals stable. Pt had incontinence episode of BM and urine this shift. Peritoneal area and abd folds noted to be red, DARON Carlson made aware in report. Pt ate regular diet for dinner and tolerted well. Denies pain or nausea at this time. Report given to DARON Carlson.
[2021-05-13 20:08] VITALS: BP 124/85; PULSE 114; RESP 18; TEMP 36.8; O2SAT 97
[2021-05-13] MEDS: Cyclobenzaprine HCl 10 MG TABLET PO (20:21)
[2021-05-13] MEDS: Apixaban 5 MG TABLET PO (20:22)
[2021-05-13] MEDS: Ondansetron ODT 4 MG TAB.RAPDIS TRANSLINGU (20:22)
[2021-05-13 23:32] VITALS: BP 116/61; PULSE 120; RESP 16; TEMP 37.2; O2SAT 94
[2021-05-13] MEDS: Nystatin Cream 15 GM TUBE 1 APPL TOPICAL (23:40)
[2021-05-14] VITALS (7 sets, daily range): BP systolic 121–154; BP diastolic 8–97; PULSE 110–140; RESP 14–20; TEMP 35.6–37.4; O2SAT 92–97
--- NOTE | 2021-05-14 | ECG_ITS ---
Test Reason : tachy ?afib Blood Pressure : / mmHG Vent. Rate : 125 BPM Atrial Rate : 000 BPM P-R Int : 000 ms QRS Dur : 094 ms QT Int : 336 ms P-R-T Axes : 000 -09 -69 degrees QTc Int : 484 ms Atrial fibrillation with rapid ventricular response Nonspecific T wave abnormality Abnormal ECG When compared with ECG of 13-MAY-2021 09:02, No significant changes seen Referred By: Bessie Brantley Electronically Signed By:ANILA BATES
[2021-05-14] MEDS: Omeprazole 20 MG CAPSULE.DR PO (05:34)
[2021-05-14] MEDS: Levothyroxine Sodium 50 MCG TABLET PO (05:34)
[2021-05-14] MEDS: Acetaminophen 325 MG TABLET 650 MG PO (05:37)
--- NOTE | 2021-05-14 09:00 | MHC.CM.PN ---
Patient is documented to be confused;CM spoke with Significant Other/HCP/Jose D @ [phone]. Patient lives alone in her apartment but her S.O./Jose D has been staying with her recently. STR appears likely and Patient has been to [facility] in the past. CM told Jose D that a referral would be made to [facility], but he is also agreeable to STR/SNF referrals as well. CM has initiated and will follow for dc planning. IMM addressed with Jose D and original will be mailed certified letter to him and a copy has been placed on the chart. Patient uses a cane and has a lift to get her to the second floor where the bathroom is. PCP is Dr. Rai Fabian and Patient has received CovJumio/Pfizer vax X3. Family lives in the [facility].
[2021-05-14] MEDS: levoFLOXacin/D5W 500 MG/100 ML PIGGYBACK 100 MG IV (09:11)
[2021-05-14] MEDS: 0.9 % Sodium Chloride Flush 3 ML SYRINGE IVFLUSH (09:11)
[2021-05-14 09:27] LABS: Anion Gap 14 (12-20); Blood Urea Nitrogen 17 mg/dL (9-16); Calcium 8.6 mg/dL (8.4-10.2); Carbon Dioxide 24 mmol/L (22-29); Chloride 99 mmol/L (96-108); Creatinine Clr Calc Pharmacy 73.9; Estimated Glomerular Filt Rate > 60; Glucose Random 102 mg/dL (60-115); Magnesium 1.5 mg/dL (1.6-2.6); Potassium 3.2 mmol/L (3.3-5.1); Sodium 134 mmol/L (135-145)
--- NOTE | 2021-05-14 10:04 | PC.NURSE ---
Skin/wound assessment completed today. Patient has incontinent associated dermatitis to perineal and bilateral buttocks. Triad applied to all areas. No other skin issues noted at this time.
[2021-05-14 11:05] LABS: Folate 2.2 ng/mL (> or = 4.0); Vitamin B12 889 pg/mL (200-900)
--- NOTE | 2021-05-14 11:09 | MHC.STROKE ---
Please see Toxicology Report from 05/10/21 ED Visit. Also see Bellmaker note from 05/10/21 visit. Discussed case with Dr. Galindo this morning.
--- NOTE | 2021-05-14 11:09 | PC.NURSE ---
HR 120's-140's. Patient lethargic. Unable to answer questions appropriately. Too lethargic to eat breakfast. Right hip noted to be externally rotated. Dr. Brantley notified. STAT EKG ordered. Telemonitoring ordered. EKG rapid afib. HR 110's-130's. Patient appears flushed and warm. Afebrile. Asked Dr. Brantley for cardiology consult. Dr. Brantley ordered MRI brain, CT hips and pelvis, cardizem drip, swallow eval. Transfer order also processed. Report given to Alireza NERI in [facility]. Patient sent down for CT prior to drip being started.
[2021-05-14] MEDS: dilTIAZem HCL 125 MG in 0.9 % Sodium Chloride 100 ML IVCONT (12:32)
--- NOTE | 2021-05-14 13:32 | PM.NEUROCN ---
History of Present Illness Data of Consult Service Date: 05/14/21 Primary Care Provider: Rai Fabian MD [facility] Reason for consult: Altered mental status This is a 71-year-old woman with a remote history over small stroke a few years ago, atrial fibrillation for which she is on the Ellik worse who was seen in the emergency room 3 days earlier with altered mental status and found to have a UTI. At that time MRI of the brain did not show any acute findings and showed mild microvascular disease. She tested positive on her toxic screen to opioids, Barbiturates and fentanyl although she says she does not have access to fentanyl. She does take oxycodone 1 or 2 a day for pain. She is now admitted again with altered mental status confused and found to have a klebsiella UTI which is now being treated. She is a little bit more alert but still quite confused and unable to provide much information. Her male friend was at the bedside during this evaluation and filled me in with the details. Review of Systems Review of Systems: ROS unable to be obtained due to altered mental status Yes Unobtainable due to mental status PMFSH Past Medical History Medical History Anxiety Arthritis Asthma Carpal tunnel syndrome Chronic pain GERD (gastroesophageal reflux disease) HTN (hypertension) Hypothyroidism Obesity Persistent atrial fibrillation Primary osteoarthritis involving multiple joints Stroke Family History Family History Father CVD (cardiovascular disease) Diabetes Mother CVD (cardiovascular disease) HTN (hypertension) Surgical History Surgical History History of bladder surgery History of tonsillectomy Hx of cholecystectomy S/P foot surgery, right S/P panniculectomy Social History Social History Household Members: Family Housing: House Do you presently have visiting nurse or other home services: No Unable to assess alcohol history related to: Unknown Alcohol intake: unknown Patient Tobacco Use Status: Tobacco use Unknown e-Cigarette/Vaping Use: Never Used Use of substances other than those prescribed or required for medical reasons: Unable to respond Currently Displaying Signs/Symptoms of Drug Intoxication Withdrawal: No Advance Directives: No Advance Directives Information Provided: No Advance Directives on File: No Do you have thoughts of harming others: None Do you have a plan to hurt others: No Plan Recently lost weight without trying: No How much weight loss: Not applicable Eating poorly because of decreased appetite: No Nutrition screen score: 0 Nutrition Risks: No Nutritional Risk Patient : No : No Poor oral hygiene: No service: No Current occupational status: retired [employer] Allergies Allergy/AdvReac Type Severity Reaction Status Date / Time No Known Allergies Allergy Mild N/A Verified 05/13/21 09:01 Active Medications: Current Medications Acetaminophen (Acetaminophen 325 Mg Tablet) 650 mg PO Q6H PRN PRN Reason: Pain, Mild (Pain Scale 1-3) Last Admin: 05/14/21 05:37 Dose: 650 mg Documented by: Acetaminophen/Butalbital/Caffeine (Butalb/Acetamin/Caff 50/325/40 Tablet) 1 tab PO DAILY PRN PRN Reason: Headache Apixaban (Apixaban 5 Mg Tablet) 5 mg PO BID [facility] Last Admin: 05/13/21 20:22 Dose: 5 mg Documented by: Atorvastatin Calcium (Atorvastatin Calcium 40 Mg Tablet) 40 mg PO DAILY [facility] Celecoxib (Celecoxib 200 Mg Capsule) 200 mg PO DAILY [facility] Cyclobenzaprine HCl (Cyclobenzaprine Hcl 10 Mg Tablet) 10 mg PO TID [facility] Last Admin: 05/13/21 20:21 Dose: 10 mg Documented by: Gabapentin (Gabapentin 400 Mg Capsule) 400 mg PO QID [facility] Last Admin: 05/13/21 20:23 Dose: Not Given Documented by: Hydrochlorothiazide (Hydrochlorothiazide 12.5 Mg Tablet) 12.5 mg PO DAILY [facility] Levofloxacin (Levaquin) 500 mg in 100 mls @ 100 mls/hr IV Q24H [facility] Last Infusion: 05/14/21 10:25 Dose: Infused Documented by: Diltiazem HCl 125 mg/ Sodium (Chloride) 125 mls @ 0 mls/hr IVCONT .Q0M [facility]; Protocol Last Admin: 05/14/21 12:32 Dose: 5 mg/hr, 5 mls/hr Documented by: Potassium Chloride () 10 meq in 100 mls @ 100 mls/hr IV Q1H [facility] Stop: 05/14/21 15:14 Magnesium Sulfate/Dextrose (Magnesium Sulfate/D5w) 1 gm in 100 mls @ 100 mls/hr IV ONCE ONE Stop: 05/14/21 14:11 Levothyroxine Sodium (Levothyroxine Sodium 50 Mcg Tablet) 50 mcg PO DAILY@0600 [facility] Last Admin: 05/14/21 05:34 Dose: 50 mcg Documented by: Lisinopril (Lisinopril 20 Mg Tablet) 20 mg PO DAILY [facility] Meclizine HCl (Meclizine Hcl 25 Mg Tablet) 25 mg PO BID PRN PRN Reason: Dizziness Metoprolol Succinate (Metoprolol Succinate Er 50 Mg Tab.Er.24h) 50 mg PO DAILY [facility]; Protocol Mirabegron (Mirabegron 25 Mg Tab.Er.24h) 25 mg PO DAILY [facility] Nystatin (Nystatin Cream 15 Gm Tube) 1 appl TOPICAL BID [facility]; Protocol Last Admin: 05/13/21 23:40 Dose: 1 appl Documented by: Omeprazole (Omeprazole 20 Mg Capsule.Dr) 20 mg PO DAILY@0630 [facility] Last Admin: 05/14/21 05:34 Dose: 20 mg Documented by: Ondansetron HCl (Ondansetron Odt 4 Mg Tab.Rapdis) 4 mg TRANSLINGU BEDTIME [facility] Last Admin: 05/13/21 20:22 Dose: 4 mg Documented by: Pharmacy Consult (Consult Rx Perform Med Rec) 1 each MISCELLANE ONCE PRN PRN Reason: Consult order Sodium Chloride (0.9 % Sodium Chloride Flush 3 Ml Syringe) 3 ml IVFLUSH QSHIFT [facility] Last Admin: 05/14/21 09:11 Dose: 3 ml Documented by: Verapamil HCl (Verapamil Hcl Sr 120 Mg Tablet.Er) 120 mg PO DAILY [facility]; Protocol Home Medications Medication Instructions Recorded Confirmed Last Taken Type apixaban 5 mg tablet (Eliquis) 5 mg PO BID 03/27/20 05/13/21 05/12/21 History atorvastatin 40 mg tablet 40 mg PO DAILY 03/27/20 05/13/21 05/12/21 History celecoxib 200 mg capsule 200 mg PO DAILY 03/27/20 05/13/21 05/12/21 History conj estrogen-medroxyprogesterone 1 tab PO DAILY 03/27/20 05/13/21 05/12/21 History 0.625 mg-2.5 mg tablet (Prempro) levothyroxine 50 mcg capsule 50 mcg PO DAILY 03/27/20 05/13/21 05/12/21 History lisinopril 20 1 tab PO DAILY 03/27/20 05/13/21 05/12/21 History mg-hydrochlorothiazide 12.5 mg tablet metoprolol succinate 50 mg 50 mg PO DAILY 03/27/20 05/13/21 05/12/21 History tablet,extended release 24 hr omeprazole 20 mg capsule,delayed 20 mg PO DAILY 03/27/20 05/13/21 05/12/21 History release verapamil 120 mg 24 hr 120 mg PO DAILY 03/27/20 05/13/21 05/12/21 History capsule,extended release gaocvvfmrn-cthaeyujolwag-dnrkldba 1 tab PO DAILY PRN 05/13/21 05/13/21 Unknown History 50 mg-325 mg-40 mg tablet gabapentin 400 mg capsule 1 cap PO QID 05/13/21 05/13/21 05/12/21 History hydrocodone 5 mg-acetaminophen 325 1 tab PO BID PRN 05/13/21 05/13/21 Unknown History mg tablet meclizine 25 mg tablet 1 tab PO BID PRN 05/13/21 05/13/21 Unknown History mirabegron 25 mg tablet,extended 1 tab PO DAILY 05/13/21 05/13/21 05/12/21 History release 24 hr (Myrbetriq) ondansetron HCl 4 mg tablet 1 tab PO BEDTIME 05/13/21 05/13/21 05/12/21 History Physical Exam Vital Signs: Vital Signs: Last Vital Signs Temp 97.8 F 05/14/21 11:09 Pulse 115 H 05/14/21 11:09 Resp 18 05/14/21 11:09 BP 121/71 05/14/21 11:09 Pulse Ox 92 05/14/21 11:09 BMI result Body Mass Index 33.1 Neuro: Other: She is alert pleasant and cooperative but appears dazed and very slow in her responses with the bread if any or and the takes a long time to answer any questions. She knows her name and that she is in the hospital but could not tell me the month or the year. She is cooperative with the exam should her speech is fluent she is able to repeat and comprehend. Cranial nerves II through XII are normal. Muscle tone and strength are normal in all 4 extremities. Deep tendon reflexes symmetrical. Plantar responses are flexor Results Labs CBC & Chem 7: 05/13/21 11:18 05/14/21 08:41 Labs: BMP 05/14/21 08:41 Sodium 134 L Potassium 3.2 L Chloride 99 Carbon Dioxide 24 BUN 17 H Creatinine 0.70 Calcium 8.6 D Microbiology Microbiology Results: Microbiology 05/13/21 11:18 Blood - Venous Blood Culture - Preliminary No growth after 24 hours. 05/13/21 11:18 Blood - Venous Blood Culture - Preliminary No growth after 24 hours. Assessment and Plan (1) Altered mental status: Qualifiers: Altered mental status type: unspecified Qualified Code(s): R41.82 - Altered mental status, unspecified Status: Acute She appears to have a toxic metabolic encephalopathy related to UTI. And there is some question of her a positive toxic screen which is probably attributable to her oxycodone which she takes once or twice a day. It is unclear why she tested positivve for fentanyl. Another toxic screen can be sent. She does not need to have a repeat MRI as one was just done 3 days ago and was negative. She does not appear to have had a stroke. (2) Urinary tract infection due to ESBL Klebsiella: Status: Acute Procedures Date of Service Date of Service: 05/14/21
[2021-05-14] MEDS: Gabapentin 400 MG CAPSULE PO ×2 (14:25→18:03)
[2021-05-14] MEDS: Cyclobenzaprine HCl 10 MG TABLET PO (14:25)
--- NOTE | 2021-05-14 14:56 | MHC.SL.SWA ---
Speech Pathologist Impression: Within Functional Limits Risk of Aspiration Due to: Reduced Cognition Dysphasia Diet Status: No Change Liquid Consistency and Strategies for Safe Swallow: Liquid Intake Recommendation: Thin Liquid Intake Strategies: Small Sips Solid Food Consistency: Dietary Recommendations: Regular Additional Modifications to Solid Foods: Encourage Pt to choose preferred foods. Oral Medication Intake: Please contact the pharmacy regarding appropriate crushable or liquid drug formulations that are available if modifications to medication delivery is recommended. Whole with Liquid Compensatory Strategies and Precautions to be Taken for Safe Swallow: Sitting Upright (90 deg) Small Bites and Sips Supervision While Eating and Drinking for Safe Swallow: None Needed Foods to Avoid: Swallowing Recommended Treatments: Recommendation for Speech: NA:Typical Evaluation Comment: Pt presents w oral and pharyngeal phases of swallow WNL on all consistencies. Recommend continue on REGULAR diet w/ THIN liquids. Findings/recommendation sent to MD, Heavy Media Operator via secure text. No further ANALYTICS DEVELOPER svcs needed, D/C at this time. Frequency/Duration: D/C Date Range for Service Req: Timeline to reassess: Paper Core Machine Operator Clinican/Clinical Fellow: No Supervisory Statement: I have reviewed and agree with the student/clinical fellow's documentation: N/A Speech Language Pathologist: Aurea Montoya M.A., CCC-ANALYTICS DEVELOPER
--- NOTE | 2021-05-14 15:25 | HO.PM.IMPN ---
Subjective Subjective Date of Service: 05/14/21 Interval History: Toxic metabolic encephalopathy Review of Systems Mental status is slowly improving, denies any chest pain or shortness of breath or abdominal pain. Physical Exam Vital Signs: Vital Signs: Last Vital Signs Temp 96.0 F L 05/14/21 15:13 Pulse 119 H 05/14/21 15:13 Resp 14 05/14/21 15:13 BP 133/80 05/14/21 15:13 Pulse Ox 96 05/14/21 15:13 BMI result Body Mass Index 33.1 Appearance: Alert.? Oriented X2.? not in distress.? Eyes: Pupils equal, round and reactive to light.? Sclera nonicteric.? ENT: Pharynx normal.? Moist mucous membranes. cvs: rrr, [id number] , no murmur res: clear to auscultation ,no rhonchii or wheezing abd: no rebound or guarding ,nt, bs present. ext pulses present , no cyanosis ,Gait well balanced well coordinated. neuro: axo2, moving legs but generally very weak , has pains ? chronic Objective Data Active Medications Acetaminophen (Acetaminophen 325 Mg Tablet) 650 mg PO Q6H PRN PRN Reason: Pain, Mild (Pain Scale 1-3) Last Admin: 05/14/21 05:37 Dose: 650 mg Documented by: BIRD Acetaminophen/Butalbital/Caffeine (Butalb/Acetamin/Caff 50/325/40 Tablet) 1 tab PO DAILY PRN PRN Reason: Headache Apixaban (Apixaban 5 Mg Tablet) 5 mg PO BID [facility] Last Admin: 05/14/21 14:26 Dose: Not Given Documented by: CHARLES Non-Admin Reason: Physician Held Med Atorvastatin Calcium (Atorvastatin Calcium 40 Mg Tablet) 40 mg PO DAILY [facility] Last Admin: 05/14/21 14:26 Dose: Not Given Documented by: CHARLES Non-Admin Reason: Physician Held Med Celecoxib (Celecoxib 200 Mg Capsule) 200 mg PO DAILY [facility] Last Admin: 05/14/21 14:26 Dose: Not Given Documented by: CHARLES Non-Admin Reason: Physician Held Med Cyclobenzaprine HCl (Cyclobenzaprine Hcl 10 Mg Tablet) 10 mg PO TID [facility] Last Admin: 05/14/21 14:25 Dose: 10 mg Documented by: CHARLES Gabapentin (Gabapentin 400 Mg Capsule) 400 mg PO QID [facility] Last Admin: 05/14/21 14:25 Dose: 400 mg Documented by: CHARLES Hydrochlorothiazide (Hydrochlorothiazide 12.5 Mg Tablet) 12.5 mg PO DAILY [facility] Last Admin: 05/14/21 14:28 Dose: Not Given Documented by: CHARLES Non-Admin Reason: Physician Held Med Levofloxacin (Levaquin) 500 mg in 100 mls @ 100 mls/hr IV Q24H [facility] Last Infusion: 05/14/21 10:25 Dose: 0 mls/hr Documented by: ELINA Diltiazem HCl 125 mg/ Sodium (Chloride) 125 mls @ 0 mls/hr IVCONT .Q0M [facility]; Protocol Last Titration: 05/14/21 12:47 Dose: 10 mg/hr, 10 mls/hr Documented by: CHARLES Levothyroxine Sodium (Levothyroxine Sodium 50 Mcg Tablet) 50 mcg PO DAILY@0600 [facility] Last Admin: 05/14/21 05:34 Dose: 50 mcg Documented by: BIRD Lisinopril (Lisinopril 20 Mg Tablet) 20 mg PO DAILY [facility] Last Admin: 05/14/21 14:28 Dose: Not Given Documented by: CHARLES Non-Admin Reason: Physician Held Med Meclizine HCl (Meclizine Hcl 25 Mg Tablet) 25 mg PO BID PRN PRN Reason: Dizziness Metoprolol Succinate (Metoprolol Succinate Er 50 Mg Tab.Er.24h) 50 mg PO DAILY [facility]; Protocol Last Admin: 05/14/21 14:28 Dose: Not Given Documented by: CHARLES Non-Admin Reason: Physician Held Med Mirabegron (Mirabegron 25 Mg Tab.Er.24h) 25 mg PO DAILY [facility] Last Admin: 05/14/21 14:28 Dose: Not Given Documented by: CHARLES Non-Admin Reason: Physician Held Med Nystatin (Nystatin Cream 15 Gm Tube) 1 appl TOPICAL BID [facility]; Protocol Last Admin: 05/14/21 14:29 Dose: Not Given Documented by: CHARLES Non-Admin Reason: off unit Omeprazole (Omeprazole 20 Mg Capsule.) 20 mg PO DAILY@0630 [facility] Last Admin: 05/14/21 05:34 Dose: 20 mg Documented by: BIRD Ondansetron HCl (Ondansetron Odt 4 Mg Tab.Rapdis) 4 mg TRANSLINGU BEDTIME [facility] Last Admin: 05/13/21 20:22 Dose: 4 mg Documented by: BIRD Pharmacy Consult (Consult Rx Perform Med Rec) 1 each MISCELLANE ONCE PRN PRN Reason: Consult order Sodium Chloride (0.9 % Sodium Chloride Flush 3 Ml Syringe) 3 ml IVFLUSH QSHIFT [facility] Last Admin: 05/14/21 09:11 Dose: 3 ml Documented by: ELINA Verapamil HCl (Verapamil Hcl Sr 120 Mg Tablet.Er) 120 mg PO DAILY [facility]; Protocol Last Admin: 05/14/21 14:29 Dose: Not Given Documented by: CHARLES Non-Admin Reason: Physician Held Med Labs CBC & Chem 7: 05/13/21 11:18 05/14/21 08:41 Labs: Laboratory Results - last 24 hr 05/14/21 05/14/21 08:41 08:41 Anion Gap 14 Estim Creat Clear Calc 73.9 Estimated GFR > 60 Random Glucose 102 Calcium 8.6 D Magnesium 1.5 L Vitamin B12 889 Folate 2.2 L TSH 2.30 Microbiology Microbiology Results: Microbiology 05/13/21 11:18 Blood Culture - Preliminary Blood - Venous No growth after 24 hours. 05/13/21 11:18 Blood Culture - Preliminary Blood - Venous No growth after 24 hours. Assessment and Plan (1) Myalgia: Status: Acute (2) Weakness: Status: Acute (3) Altered mental status: Status: Acute Plan 71/f with multiple medical issues including history of AFIB, stroke, here with confusion and found to have UTI, likely has encephalopathy from UTI. 1/Toxic encephalopathy likely from UTI-Treate Underlying UTI, gentle hydration, also multiple pain/seadtive meds might be contributing neuro : Saw the patient thought to be toxic metabolic encephalopathy, no need to repeat MRI since it was done 3 days ago. Will add hip CTs since has pain. 2/Polymicrobial UTI (Klebsiela and E. Feacalis) ?Organism 1 ?Klebsiella oxytoca ? Quant ? > 100,000 cfu/mL ? ESBL Note:? NOTE: Extended-Spectrum Beta-Lactamase enzyme present ?? ? Organism 2 ?Enterococcus faecalis ? Quant ? 50,000 to 100,000 cfu/mL ?Kleb oxyto?E faecalis? M.I.C.? ? RX ? ? M.I.C.? ? RX ? --------- ---? ? --------- ---? Ampicillin ? >=32 ? ? ? R ? ? <=2 ?S? Extended Spectrum Beta Lactam? POS? +? Ceftriaxone? 8 ?S? Gentamicin ? <=1 ?S? Levofloxacin ? <=0.12?S?? ? 1 ?S? Nitrofurantoin ? <=16?S?? ? <=16?S? Tetracycline? >=16 ? ? ? R ? Trimethoprim/Sulfamethoxazole? <=20?S? Vancomycin? 2 ?S?? ? --Use levaquin as covers both. 3/Peristent AFIB--hold Metoprolol, Verapamil and continue Eliquis currenty started on cardizem drip due to afib with rvr. 4/HTN--Verapamil, Lisinopril, HCTZ,? and Metoprolol 5/HLD--Lipitor 6/Hypothyroidism--Levothyroxin 7/GERD--PPI 8/Neuropathy--Gabapentin 9/Hypomagnesemia--Replaced, repeat level tomorrow 10/ DVT prophylaxis-- Eliquis. added PT eval Quality Stroke Does the patient have a stroke diagnosis?: No VTE Prior VTE?: No VTE Risk Level:: Medical - moderate - high VTE Device Contraindication: Treatment Not Indicated VTE Drug Contraindication: N/A - Med Ordered
[2021-05-14] MEDS: Magnesium Sulfate/D5W 1 GM/100 ML PIGGYBACK IV (17:56)
[2021-05-14] MEDS: Folic Acid 1 MG TABLET PO (18:03)
[2021-05-14] MEDS: Potassium Chloride/H20 10 MEQ/100 ML PIGGYBACK 100 MEQ IV (18:14)
[2021-05-14] MEDS: Potassium Chloride Packet 20 MEQ PACKET PO (18:28)
[2021-05-15] MEDS: dilTIAZem HCL 125 MG in 0.9 % Sodium Chloride 100 ML 15 MG IVCONT (00:30)
[2021-05-15 03:22] VITALS: BP 111/84; PULSE 105; RESP 20; TEMP 37.1; O2SAT 94
--- NOTE | 2021-05-15 03:30 | PC.NURSE ---
Addendum entered by Jair Chahal RN 05/15/21 04:01: along with other assessment pt noted to be much more alert and oriented. pt speaking clearly not falling asleep during assessment like prior assessments. Pt not lethargic. Original Note: left ankle swelling with +2 edema, pt states pain to touch, posterior tibial pulse weak but intact. unable to palp pedal pulse due to edema
[2021-05-15] MEDS: Acetaminophen 325 MG TABLET 650 MG PO (04:05)
[2021-05-15] MEDS: Omeprazole 20 MG CAPSULE.DR PO (05:58)
[2021-05-15] MEDS: Levothyroxine Sodium 50 MCG TABLET PO (05:58)
[2021-05-15] MEDS: traMADoL HCL 50 MG TABLET PO ×2 (06:39→12:24)
--- NOTE | 2021-05-15 06:47 | PC.NURSE ---
right forearm 22g removed at 0430 due to pain and irritation at the site. catheter tip is intact
[2021-05-15 07:21] VITALS: BP 121/64; PULSE 84; RESP 18; TEMP 36.2; O2SAT 96
[2021-05-15 08:08] VITALS: BP 121/64; PULSE 84; O2SAT 96
[2021-05-15] MEDS: Atorvastatin Calcium 40 MG TABLET PO (08:44)
[2021-05-15] MEDS: Mirabegron 25 MG TAB.ER.24H PO (08:44)
[2021-05-15] MEDS: Magnesium Oxide 400 MG TABLET PO ×2 (08:45→17:23)
[2021-05-15] MEDS: VerapamiL HCL SR 120 MG TABLET.ER PO (08:45)
[2021-05-15] MEDS: hydroCHLOROthiazide 12.5 MG TABLET PO (08:45)
[2021-05-15] MEDS: Folic Acid 1 MG TABLET PO (08:45)
[2021-05-15] MEDS: Apixaban 5 MG TABLET PO ×2 (08:46→20:23)
[2021-05-15] MEDS: Metoprolol Tartrate 25 MG TABLET PO ×3 (08:46→17:23)
[2021-05-15] MEDS: Cyclobenzaprine HCl 10 MG TABLET PO ×3 (08:46→20:23)
[2021-05-15] MEDS: Celecoxib 200 MG CAPSULE PO (08:46)
[2021-05-15] MEDS: Gabapentin 400 MG CAPSULE PO ×4 (08:47→20:23)
[2021-05-15] MEDS: levoFLOXacin/D5W 500 MG/100 ML PIGGYBACK 100 MG IV (08:49)
[2021-05-15 11:22] VITALS: BP 104/57; PULSE 87; RESP 20; TEMP 36.6; O2SAT 98
[2021-05-15] MEDS: lisinopriL 20 MG TABLET PO (12:20)
--- NOTE | 2021-05-15 14:04 | P.PNIM_ITS ---
Subjective Subjective Date of Service: 05/15/21 Interval History: Toxic metabolic encephalopathy, uti, OA Review of Systems Patient is moving her toes little bit better than before but she still has lot of pain in the knee and in the hip area more right>left. Physical Exam Vital Signs: Vital Signs: Last Vital Signs Temp 97.9 F 05/15/21 11:22 Pulse 87 05/15/21 11:22 Resp 20 05/15/21 11:22 BP 104/57 L 05/15/21 11:22 Pulse Ox 98 05/15/21 11:22 BMI result Body Mass Index 33.1 Appearance: Alert.? Oriented X2.? not in distress.? Eyes: Pupils equal, round and reactive to light.? Sclera nonicteric.? ENT: Pharynx normal.? Moist mucous membranes. cvs: rrr, [id number] , no murmur res: clear to auscultation ,no rhonchii or wheezing abd: no rebound or guarding ,nt, bs present. ext pulses present , no cyanosis . neuro: axo2, moving legs slightly better than yesterday,generally very weak , has pains ? chronic Objective Data Active Medications Acetaminophen (Acetaminophen 325 Mg Tablet) 650 mg PO Q6H PRN PRN Reason: Pain, Mild (Pain Scale 1-3) Last Admin: 05/15/21 04:05 Dose: 650 mg Documented by: MARIE Acetaminophen/Butalbital/Caffeine (Butalb/Acetamin/Caff 50/325/40 Tablet) 1 tab PO DAILY PRN PRN Reason: Headache Apixaban (Apixaban 5 Mg Tablet) 5 mg PO BID [facility] Last Admin: 05/15/21 08:46 Dose: 5 mg Documented by: ABDI Atorvastatin Calcium (Atorvastatin Calcium 40 Mg Tablet) 40 mg PO DAILY [facility] Last Admin: 05/15/21 08:44 Dose: 40 mg Documented by: ABDI Celecoxib (Celecoxib 200 Mg Capsule) 200 mg PO DAILY [facility] Last Admin: 05/15/21 08:46 Dose: 200 mg Documented by: ABDI Cyclobenzaprine HCl (Cyclobenzaprine Hcl 10 Mg Tablet) 10 mg PO TID [facility] Last Admin: 05/15/21 08:46 Dose: 10 mg Documented by: ABDI Folic Acid (Folic Acid 1 Mg Tablet) 1 mg PO DAILY [facility] Last Admin: 05/15/21 08:45 Dose: 1 mg Documented by: ABDI Gabapentin (Gabapentin 400 Mg Capsule) 400 mg PO QID [facility] Last Admin: 05/15/21 12:20 Dose: 400 mg Documented by: ABDI Hydrochlorothiazide (Hydrochlorothiazide 12.5 Mg Tablet) 12.5 mg PO DAILY [facility] Last Admin: 05/15/21 08:45 Dose: 12.5 mg Documented by: ABDI Levofloxacin (Levaquin) 500 mg in 100 mls @ 100 mls/hr IV Q24H [facility] Last Infusion: 05/15/21 12:30 Dose: 100 mls/hr Documented by: ABDI Levothyroxine Sodium (Levothyroxine Sodium 50 Mcg Tablet) 50 mcg PO DAILY@0600 [facility] Last Admin: 05/15/21 05:58 Dose: 50 mcg Documented by: MARIE Lisinopril (Lisinopril 20 Mg Tablet) 20 mg PO DAILY [facility] Last Admin: 05/15/21 12:20 Dose: 20 mg Documented by: ABDI Magnesium Oxide (Magnesium Oxide 400 Mg Tablet) 400 mg PO BIDPC [facility] Last Admin: 05/15/21 08:45 Dose: 400 mg Documented by: BADI Meclizine HCl (Meclizine Hcl 25 Mg Tablet) 25 mg PO BID PRN PRN Reason: Dizziness Metoprolol Tartrate (Metoprolol Tartrate 25 Mg Tablet) 25 mg PO QID [facility]; Protocol Last Admin: 05/15/21 12:20 Dose: 25 mg Documented by: ABDI Mirabegron (Mirabegron 25 Mg Tab.Er.24h) 25 mg PO DAILY [facility] Last Admin: 05/15/21 08:44 Dose: 25 mg Documented by: ABDI Nystatin (Nystatin Cream 15 Gm Tube) 1 appl TOPICAL BID [facility]; Protocol Last Admin: 05/15/21 12:21 Dose: Not Given Documented by: ABDI Non-Admin Reason: Med Not Available Omeprazole (Omeprazole 20 Mg Capsule.) 20 mg PO DAILY@0630 [facility] Last Admin: 05/15/21 05:58 Dose: 20 mg Documented by: MARIE Ondansetron HCl (Ondansetron Odt 4 Mg Tab.Rapdis) 4 mg TRANSLINGU BEDTIME [facility] Last Admin: 05/14/21 21:47 Dose: Not Given Documented by: MARIE Non-Admin Reason: Patient Condition Contraindication Pharmacy Consult (Consult Rx Perform Med Rec) 1 each MISCELLANE ONCE PRN PRN Reason: Consult order Sodium Chloride (0.9 % Sodium Chloride Flush 3 Ml Syringe) 3 ml IVFLUSH QSHIFT [facility] Last Admin: 05/15/21 12:10 Dose: Not Given Documented by: ABDI Non-Admin Reason: IV Running Tramadol HCl (Tramadol Hcl 50 Mg Tablet) 50 mg PO Q4H PRN PRN Reason: Pain, Severe (Pain Scale 7-10) Last Admin: 05/15/21 12:24 Dose: 50 mg Documented by: ABDI Verapamil HCl (Verapamil Hcl Sr 120 Mg Tablet.Er) 120 mg PO DAILY [facility]; Protocol Last Admin: 05/15/21 08:45 Dose: 120 mg Documented by: ABDI Labs CBC & Chem 7: 05/13/21 11:18 05/14/21 08:41 Microbiology Microbiology Results: Microbiology 05/13/21 11:18 Blood Culture - Preliminary Blood - Venous No growth after 48 hours. 05/13/21 11:18 Blood Culture - Preliminary Blood - Venous No growth after 48 hours. Assessment and Plan (1) Urinary tract infection due to ESBL Klebsiella: Status: Acute (2) Myalgia: Status: Acute (3) Weakness: Status: Acute Plan 71/f with multiple medical issues including history of AFIB, stroke, here with confusion and found to have UTI, likely has encephalopathy from UTI. 1/Toxic encephalopathy likely from UTI-Treate Underlying UTI, gentle hydration, also multiple pain/seadtive meds might be contributing neuro :? toxic metabolic encephalopathy, no need to repeat MRI since it was done 3 days ago. hip CTs -OA seems slightly improving mental status Continue IV antibiotic, gentle hydration Will get knee and ankle x-ray, uric acid-continue tramdol,tylenol , lidocaine patch, flexril 2/Polymicrobial UTI (Klebsiela and E. Feacalis) --Use levaquin as covers both. 3/Peristent AFIB- rate is improving atay [id number] Metoprolol, Verapamil and continue Eliquis,off cardizem drip . 4/HTN--Verapamil, Lisinopril, HCTZ,? and Metoprolol 5/HLD--Lipitor 6/Hypothyroidism--Levothyroxin 7/GERD--PPI 8/Neuropathy--Gabapentin 9/Hypomagnesemia--Replaced, repeat level tomorrow 10/ DVT prophylaxis-- Eliquis. PT eval-str Quality Stroke Does the patient have a stroke diagnosis?: No VTE Prior VTE?: No VTE Risk Level:: Medical - moderate - high VTE Device Contraindication: Treatment Not Indicated VTE Drug Contraindication: N/A - Med Ordered
[2021-05-15] MEDS: Lidocaine 4 % Patch ADH..PATCH 0.5 PATCH TRANSDERMA (15:24)
[2021-05-15] MEDS: Lidocaine 4 % Patch ADH..PATCH 1 PATCH TRANSDERMA (15:27)
[2021-05-15 15:36] LABS: Anion Gap 14 (12-20); Blood Urea Nitrogen 24 mg/dL (9-16); Calcium 9.1 mg/dL (8.4-10.2); Carbon Dioxide 24 mmol/L (22-29); Chloride 99 mmol/L (96-108); Creatinine Clr Calc Pharmacy 64.6; Estimated Glomerular Filt Rate > 60; Glucose Random 106 mg/dL (60-115); Potassium 3.4 mmol/L (3.3-5.1); Sodium 134 mmol/L (135-145)
[2021-05-15 15:43] VITALS: BP 98/68; PULSE 89; RESP 14; TEMP 36.5; O2SAT 98
[2021-05-15 15:53] LABS: Glucose, Whole Blood 143 mg/dL (60-115)
[2021-05-15] MEDS: 0.9 % Sodium Chloride Flush 3 ML SYRINGE IVFLUSH ×2 (17:24→20:24)
[2021-05-15 19:01] VITALS: BP 94/60; PULSE 64; RESP 14; TEMP 36.5; O2SAT 94
[2021-05-15] MEDS: Butalb/Acetamin/Caff 50/325/40 TABLET 1 TAB PO (20:22)
[2021-05-15] MEDS: Nystatin Cream 15 GM TUBE 1 APPL TOPICAL (20:28)
[2021-05-16] VITALS (8 sets, daily range): BP systolic 100–121; BP diastolic 58–81; PULSE 60–86; RESP 14–20; TEMP 35.8–37.1; O2SAT 92–98
[2021-05-16] MEDS: Levothyroxine Sodium 50 MCG TABLET PO (05:27)
[2021-05-16] MEDS: Omeprazole 20 MG CAPSULE.DR PO (05:27)
[2021-05-16] MEDS: VerapamiL HCL SR 120 MG TABLET.ER PO (09:49)
[2021-05-16] MEDS: Magnesium Oxide 400 MG TABLET PO ×2 (09:49→18:31)
[2021-05-16 09:50] LABS: Uric Acid 5.2 mg/dL (2.4-5.7)
[2021-05-16] MEDS: Mirabegron 25 MG TAB.ER.24H PO (09:50)
[2021-05-16] MEDS: Gabapentin 400 MG CAPSULE PO ×4 (09:50→20:15)
[2021-05-16] MEDS: Cyclobenzaprine HCl 10 MG TABLET PO ×3 (09:50→20:15)
[2021-05-16] MEDS: lisinopriL 20 MG TABLET PO (09:50)
[2021-05-16] MEDS: Atorvastatin Calcium 40 MG TABLET PO (09:52)
[2021-05-16] MEDS: Celecoxib 200 MG CAPSULE PO (09:53)
[2021-05-16] MEDS: Metoprolol Tartrate 25 MG TABLET PO ×4 (09:53→20:16)
[2021-05-16] MEDS: Apixaban 5 MG TABLET PO ×2 (09:53→20:16)
[2021-05-16] MEDS: Folic Acid 1 MG TABLET PO (09:53)
[2021-05-16] MEDS: 0.9 % Sodium Chloride Flush 3 ML SYRINGE IVFLUSH ×3 (09:54→23:29)
[2021-05-16] MEDS: levoFLOXacin/D5W 500 MG/100 ML PIGGYBACK 100 MG IV (09:54)
[2021-05-16] MEDS: Lidocaine 4 % Patch ADH..PATCH 1 PATCH TRANSDERMA (09:56)
[2021-05-16] MEDS: Nystatin Cream 15 GM TUBE 1 APPL TOPICAL ×2 (09:57→20:19)
[2021-05-16] MEDS: hydroCHLOROthiazide 12.5 MG TABLET PO (10:04)
--- NOTE | 2021-05-16 13:27 | MHC.CM.PN ---
CM met with Patient at bedside to discuss dc planning. Patient informs CM that Dr. Fabian is her Cousin and he and now she are hoping she can go to [facility] for STR. CM has referred to [facility] and put out calls/messages to [facility] Admissions, Senior Business Process Analyst, and Flatwork Catcher, trying to determine if they can offer Patient a bed today (Patient does not want to make any other plan until she knows if her first choice SNF can take her.)[facility] would be her second choice and they cannot consider her until tomorrow and [facility] third choice. CM will follow.
--- NOTE | 2021-05-16 13:30 | HO.PM.IMPN ---
Subjective Subjective Date of Service: 05/16/21 Interval History: uti Review of Systems seems improved mental status . Has some knee pain but improving also. Physical Exam Vital Signs: Vital Signs: Last Vital Signs Temp 98.1 F 05/16/21 11:30 Pulse 84 05/16/21 11:30 Resp 18 05/16/21 11:30 BP 111/69 05/16/21 11:30 Pulse Ox 95 05/16/21 11:30 BMI result Body Mass Index 33.1 Appearance: Alert.? Oriented X3.? not in distress.? cvs: rrr, [id number] , no murmur res: clear to auscultation ,no rhonchii or wheezing abd: no rebound or guarding ,nt, bs present. ext pulses present , no cyanosis . neuro: axo2, moving legs slightly better than yesterday, still has some right knee pain Objective Data Active Medications Acetaminophen (Acetaminophen 325 Mg Tablet) 650 mg PO Q8H PRN PRN Reason: Pain, Mild (Pain Scale 1-3) Acetaminophen/Butalbital/Caffeine (Butalb/Acetamin/Caff 50/325/40 Tablet) 1 tab PO DAILY PRN PRN Reason: Headache Last Admin: 05/15/21 20:22 Dose: 1 tab Documented by: BUDDY Apixaban (Apixaban 5 Mg Tablet) 5 mg PO BID [facility] Last Admin: 05/16/21 09:53 Dose: 5 mg Documented by: ABDI Atorvastatin Calcium (Atorvastatin Calcium 40 Mg Tablet) 40 mg PO DAILY [facility] Last Admin: 05/16/21 09:52 Dose: 40 mg Documented by: ABDI Celecoxib (Celecoxib 200 Mg Capsule) 200 mg PO DAILY [facility] Last Admin: 05/16/21 09:53 Dose: 200 mg Documented by: ABDI Cyclobenzaprine HCl (Cyclobenzaprine Hcl 10 Mg Tablet) 10 mg PO TID [facility] Last Admin: 05/16/21 09:50 Dose: 10 mg Documented by: ABDI Folic Acid (Folic Acid 1 Mg Tablet) 1 mg PO DAILY [facility] Last Admin: 05/16/21 09:53 Dose: 1 mg Documented by: ABDI Gabapentin (Gabapentin 400 Mg Capsule) 400 mg PO QID [facility] Last Admin: 05/16/21 09:50 Dose: 400 mg Documented by: ABDI Hydrochlorothiazide (Hydrochlorothiazide 12.5 Mg Tablet) 12.5 mg PO DAILY [facility] Last Admin: 05/16/21 10:04 Dose: 12.5 mg Documented by: ABDI Levofloxacin (Levaquin) 500 mg in 100 mls @ 100 mls/hr IV Q24H [facility] Last Admin: 05/16/21 09:54 Dose: 100 mls/hr Documented by: ABDI Levothyroxine Sodium (Levothyroxine Sodium 50 Mcg Tablet) 50 mcg PO DAILY@0600 [facility] Last Admin: 05/16/21 05:27 Dose: 50 mcg Documented by: BUDDY Lidocaine (Lidocaine 4 % Patch Adh..Patch) 1 patch TRANSDERMA DAILY [facility]; Protocol Last Admin: 05/16/21 09:56 Dose: 1 patch Documented by: ABDI Lisinopril (Lisinopril 20 Mg Tablet) 20 mg PO DAILY [facility] Last Admin: 05/16/21 09:50 Dose: 20 mg Documented by: ABDI Magnesium Oxide (Magnesium Oxide 400 Mg Tablet) 400 mg PO BIDPC [facility] Last Admin: 05/16/21 09:49 Dose: 400 mg Documented by: ABDI Meclizine HCl (Meclizine Hcl 25 Mg Tablet) 25 mg PO BID PRN PRN Reason: Dizziness Metoprolol Tartrate (Metoprolol Tartrate 25 Mg Tablet) 25 mg PO QID [facility]; Protocol Last Admin: 05/16/21 09:53 Dose: 25 mg Documented by: ABDI Mirabegron (Mirabegron 25 Mg Tab.Er.24h) 25 mg PO DAILY [facility] Last Admin: 05/16/21 09:50 Dose: 25 mg Documented by: ABDI Nystatin (Nystatin Cream 15 Gm Tube) 1 appl TOPICAL BID [facility]; Protocol Last Admin: 05/16/21 09:57 Dose: 1 appl Documented by: ABDI Omeprazole (Omeprazole 20 Mg Capsule.Dr) 20 mg PO DAILY@0630 [facility] Last Admin: 05/16/21 05:27 Dose: 20 mg Documented by: BUDDY Ondansetron HCl (Ondansetron Odt 4 Mg Tab.Rapdis) 4 mg TRANSLINGU BEDTIME [facility] Last Admin: 05/15/21 20:24 Dose: Not Given Documented by: BUDDY Non-Admin Reason: pt states no nausea, declining med Oxycodone HCl (Oxycodone Hcl Immed Release 5 Mg Tablet) 5 mg PO Q4H PRN PRN Reason: Pain, Mild (Pain Scale 1-3) Pharmacy Consult (Consult Rx Perform Med Rec) 1 each MISCELLANE ONCE PRN PRN Reason: Consult order Sodium Chloride (0.9 % Sodium Chloride Flush 3 Ml Syringe) 3 ml IVFLUSH QSHIFT [facility] Last Admin: 05/16/21 09:54 Dose: 3 ml Documented by: ABDI Tramadol HCl (Tramadol Hcl 50 Mg Tablet) 50 mg PO Q4H PRN PRN Reason: Pain, Severe (Pain Scale 7-10) Last Admin: 05/15/21 12:24 Dose: 50 mg Documented by: ABDI Verapamil HCl (Verapamil Hcl Sr 120 Mg Tablet.Er) 120 mg PO DAILY [facility]; Protocol Last Admin: 05/16/21 09:49 Dose: 120 mg Documented by: ABDI Labs CBC & Chem 7: 05/13/21 11:18 05/15/21 15:10 Labs: Laboratory Results - last 24 hr 05/15/21 05/15/21 05/16/21 15:10 15:49 09:07 Anion Gap 14 Estim Creat Clear Calc 64.6 Estimated GFR > 60 POC Glucose 143 H Random Glucose 106 Uric Acid 5.0 5.2 Calcium 9.1 Microbiology Microbiology Results: Microbiology 05/13/21 11:18 Blood Culture - Preliminary Blood - Venous No growth after 48 hours. 05/13/21 11:18 Blood Culture - Preliminary Blood - Venous No growth after 48 hours. Assessment and Plan (1) Urinary tract infection due to ESBL Klebsiella: Status: Acute (2) Myalgia: Status: Acute (3) Weakness: Status: Acute Plan 71/f with multiple medical issues including history of AFIB, stroke, here with confusion and found to have UTI, likely has encephalopathy from UTI. 1/Toxic encephalopathy likely from UTI-Treate Underlying UTI, gentle hydration, also multiple pain/seadtive meds might be contributing neuro :? toxic metabolic encephalopathy, no need to repeat MRI since it was done 3 days ago. hip CTs -OA seems slightly improving mental status Continue IV antibiotic, gentle hydration Will get knee and ankle x-ray, uric acid-continue tramdol,tylenol , lidocaine patch, flexril 2/Polymicrobial UTI (Klebsiela and E. Feacalis) --Use levaquin as covers both. 3/Peristent AFIB- rate is improving atay [phone] Metoprolol, Verapamil and continue Eliquis,off cardizem drip . 4/HTN--Verapamil, Lisinopril, HCTZ,? and Metoprolol 5/HLD--Lipitor 6/Hypothyroidism--Levothyroxin 7/GERD--PPI 8/Neuropathy--Gabapentin 9/Hypomagnesemia--Replaced, repeat level tomorrow 10/ DVT prophylaxis-- Eliquis. 11. vaginal bleeding: d/w Art -added pelvic us , repeat h/h. follow up outpatient. PT eval-str Quality Stroke Does the patient have a stroke diagnosis?: No VTE Prior VTE?: No VTE Risk Level:: Medical - moderate - high VTE Device Contraindication: Treatment Not Indicated VTE Drug Contraindication: N/A - Med Ordered
--- NOTE | 2021-05-16 13:35 | P.DS_ITS ---
DS: Providers Provider Date of Service: 05/17/21 Date of admission: 05/13/21 15:55 Primary care physician: Rai Fabian MD Consults: 05/14/21 09:45 Consult to Neurology Routine Consulting Provider: [facility] Reason for consultation: possible cva-left sided weakness new Has provider been notified: No DS: Diagnosis Discharge Diagnosis (1) Urinary tract infection due to ESBL Klebsiella: Status: Acute (2) Myalgia: Status: Acute (3) Weakness: Status: Acute DS: Summary Hospital Course Hospital Course: Date of service and discharge:05/18/21. 71 year? female with Anxiety, Arthritis, Asthma, Carpal tunnel syndrome,? Chronic pain, GERD (gastroesophageal reflux disease), HTN (hypertension), Hypothyroidism, Obesity, Persistent atrial fibrillation with history of stroke and is on Eliquis, Primary osteoarthritis, involving multiple joints,? who is presenting with confusing and weakness. She was seen in the ED 3 days ago with similar presentation at that time had MRI which was negative, UA at that time was positive and was discharged with Ceftub now culture is showing ESBL + Klebsiela and enterococcus. She lives with a significant other who is not able to care for her. She is presently confused and not able to offer any signifant meaningful story. hopsital course: Patient came to the hospital because generalized weakness, toxic metabolic encephalopathy probably related to UTI/was taking multiple pain medications at home: Patient seems to be improved with UTI treatment, in addition her pain medications-gabapentin, and hydrocodone slowly needs to be tapered in the rehab. Also has osteoarthritis -but pain is improving with her home medications. But as above needs to be tapered slowly. UTI: Please complete the course of antibiotics. AFib: Heart rate is in control, intially was slightly elevated sec to pain possibly , continue metoprolol and verapamil. Htn: Blood pressure fluctuates told softer side we will hold off lisinopril/hydrochlorothiazide, also metoprolol switched to 25 mg po bid which patient tolerating better-if blood pressure started increasing again in rehab can reintroduce it. Patient had some vaginal spotting episode: Pelvic ultrasound done: Mostly seems fine, discussed with the curve saw operator patient needs follow-up with Dr. Murray outpatient with curve saw operator exam and further management. If patient continued to have vaginal spotting, please repeat UA in the rehab also. Above management discussed with the patient in detail length she understand and in agreement with the above plan, time spent 50 minutes and 50% time spent on counseling. Significant findings: As above. Procedures performed: None. Treatment and response: As above. Complications: None. Time Spent with Patient Time attestation: Total time spent providing and/or coordinating discharge services: Discharge coordination time: Greater than 30 minutes Quality: Stroke Does the patient have a stroke diagnosis?: No Physical Exam Vital Signs: Vital Signs: Last Vital Signs Temp 98.1 F 05/16/21 11:30 Pulse 84 05/16/21 11:30 Resp 18 05/16/21 11:30 BP 111/69 05/16/21 11:30 Pulse Ox 95 05/16/21 11:30 BMI result Body Mass Index 33.1 Appearance: Alert.? Oriented X3.? not in distress.? Eyes: Pupils equal, round and reactive to light.? Sclera nonicteric.? ENT: Pharynx normal.? Moist mucous membranes. cvs: rrr, [id number] . res: clear to auscultation ,no rhonchii or wheezing abd: no rebound or guarding ,nt, bs present. ext pulses present , no cyanosis . neuro: axo2, moving legs better , less right knee pains . DS: Data Data Completed and Pending Labs on day of discharge: Laboratory Results - last 24 hr 05/15/21 05/15/21 05/16/21 15:10 15:49 09:07 Sodium 134 L Potassium 3.4 Chloride 99 Carbon Dioxide 24 Anion Gap 14 BUN 24 H Creatinine 0.80 Estim Creat Clear Calc 64.6 Estimated GFR > 60 POC Glucose 143 H Random Glucose 106 Uric Acid 5.0 5.2 Calcium 9.1 Preliminary micro results at discharge 05/13/21 11:18 Blood Culture - Preliminary Blood - Venous No growth after 48 hours. 05/13/21 11:18 Blood Culture - Preliminary Blood - Venous No growth after 48 hours. Discharge Plan Discharge Patient Disposition: er [facility] Discharge Diagnosis: UTI, weakness and osteoarthritis. Referrals: [facility] [Other] - 1 Week Rai Fabian MD [Primary Care Provider] - 1 Week Charlie Manuel MD [Physician] - 1 Week (follow up in 2 weeks) Discharge Medications: New levofloxacin 500 mg tablet 500 mg PO DAILY Qty: 5 0RF metoprolol tartrate 25 mg Tablet 25 mg PO BID Qty: 60 0RF Protocol: Hold for SBP/HR < HOLD for SBP < : 90 HOLD for HR < : 60 magnesium oxide 400 mg (241.3 mg magnesium) Tablet 400 mg PO BIDPC Qty: 10 0RF Continued cyclobenzaprine 10 mg tablet 10 mg PO TID Qty: 10 0RF hydrocodone-acetaminophen 5-325 mg tablet 1 tab PO BID PRN (Reason: Pain) 0RF ondansetron HCl 4 mg tablet 1 tab PO BEDTIME 0RF gabapentin 400 mg capsule 1 cap PO QID 0RF yarbfhfhue-kwvkwqvtkawtp-izwc 50-325-40 mg tablet 1 tab PO DAILY PRN (Reason: Headache) 0RF meclizine 25 mg tablet 1 tab PO BID PRN (Reason: Dizziness) 0RF Myrbetriq 25 mg tablet extended release 24 hr 1 tab PO DAILY 0RF Prempro 0.625-2.5 mg tablet 1 tab PO DAILY 0RF omeprazole 20 mg capsule,delayed release(DR/EC) 20 mg PO DAILY 0RF celecoxib 200 mg capsule 200 mg PO DAILY 0RF levothyroxine 50 mcg capsule 50 mcg PO DAILY 0RF Eliquis 5 mg tablet 5 mg PO BID 0RF atorvastatin 40 mg tablet 40 mg PO DAILY 0RF verapamil 120 mg capsule,ext rel. pellets 24 hr 120 mg PO DAILY 0RF tramadol 50 mg tablet 50 mg PO Q8H PRN (Reason: pain) Qty: 90 5RF Held lisinopril-hydrochlorothiazide 20-12.5 mg tablet 1 tab PO DAILY 0RF Hold Instructions: Resume on 05/21/21. use if blood pressures allows. Discontinued cefuroxime axetil 250 mg tablet 250 mg PO BID 7 Days Qty: 14 0RF metoprolol succinate 50 mg tablet extended release 24 hr 50 mg PO DAILY 0RF Discharge Orders: Discharge Order (Routine); Ordered 05/18/21 Ordered By: Bessie Brantley Diet: advance to usual diet Activity on Discharge: As tolerated Stand Alone Forms: Patient Portal Discharge page Care Plan Goals: Patient came to the hospital because generalized weakness, toxic metabolic encephalopathy probably related to UTI/was taking multiple pain medications at home: Patient seems to be improved with UTI treatment, in addition her pain medications-gabapentin, and hydrocodone slowly needs to be tapered in the rehab. Also has osteoarthritis -but pain is improving with her home medications. But as above needs to be tapered slowly. UTI: Please complete the course of antibiotics. AFib: Heart rate is in control, intially was alightly elevated sec to pain possibly , continue metoprolol and verapamil. Patient had some vaginal spotting episode: Pelvic ultrasound done: Mostly seems fine, discussed with the curve saw operator patient needs follow-up with Dr. Murray outpatient with curve saw operator exam and further management. If patient continued to have vaginal spotting, please repeat UA in the rehab also. Health Concerns: As above. Plan of Treatment: As above. Assessment: As above. Discharge Date/Time: 05/18/21 13:26
--- NOTE | 2021-05-16 14:14 | MHC.CM.PN ---
Patient has been denied admission to [facility]; CM has informed MD. Patient's second choice/[facility] is requesting tomorrow's PT note and will then consider Patient for admission there. [facility] Patient's third choice.CM will follow.
[2021-05-16 17:51] LABS: Hematocrit 35.1 % (37.0-47.0); Hemoglobin 11.4 g/dl (12.0-16.0)
[2021-05-16] MEDS: oxyCODONE HCl Immed Release 5 MG TABLET PO (19:23)
[2021-05-16] MEDS: Ondansetron ODT 4 MG TAB.RAPDIS TRANSLINGU (20:16)
[2021-05-17] VITALS (8 sets, daily range): BP systolic 70–112; BP diastolic 44–76; PULSE 69–80; RESP 14–18; TEMP 35.6–37.1; O2SAT 94–98
[2021-05-17] MEDS: Levothyroxine Sodium 50 MCG TABLET PO (05:34)
[2021-05-17] MEDS: Omeprazole 20 MG CAPSULE.DR PO (05:34)
--- NOTE | 2021-05-17 08:19 | HO.PM.IMPN ---
Subjective Subjective Date of Service: 05/17/21 Interval History: uti, oa, boderline blood pressure Review of Systems Denies any new complaint of chest pain or shortness of breath or abdominal pain or fever or chills or nausea or vomiting Denies any cough Denies any weakness or numbness. Physical Exam Vital Signs: Vital Signs: Last Vital Signs Temp 96.5 F L 05/17/21 08:00 Pulse 69 05/17/21 08:00 Resp 18 05/17/21 08:00 BP 93/55 L 05/17/21 08:00 Pulse Ox 94 05/17/21 08:00 BMI result Body Mass Index 33.1 Appearance: Alert.? Oriented X3.? not in distress.? cvs: rrr, [id number] , no murmur res: clear to auscultation ,no rhonchii or wheezing abd: no rebound or guarding ,nt, bs present. ext pulses present , no cyanosis . neuro: axo2, moving legs slightly better,right knee pain improving Objective Data Active Medications Acetaminophen (Acetaminophen 325 Mg Tablet) 650 mg PO Q8H PRN PRN Reason: Pain, Mild (Pain Scale 1-3) Acetaminophen/Butalbital/Caffeine (Butalb/Acetamin/Caff 50/325/40 Tablet) 1 tab PO DAILY PRN PRN Reason: Headache Last Admin: 05/15/21 20:22 Dose: 1 tab Documented by: BUDDY Apixaban (Apixaban 5 Mg Tablet) 5 mg PO BID [facility] Last Admin: 05/16/21 20:16 Dose: 5 mg Documented by: MARIAH Atorvastatin Calcium (Atorvastatin Calcium 40 Mg Tablet) 40 mg PO DAILY [facility] Last Admin: 05/16/21 09:52 Dose: 40 mg Documented by: ABDI Celecoxib (Celecoxib 200 Mg Capsule) 200 mg PO DAILY [facility] Last Admin: 05/16/21 09:53 Dose: 200 mg Documented by: ABDI Cyclobenzaprine HCl (Cyclobenzaprine Hcl 10 Mg Tablet) 10 mg PO TID [facility] Last Admin: 05/16/21 20:15 Dose: 10 mg Documented by: MARIAH Folic Acid (Folic Acid 1 Mg Tablet) 1 mg PO DAILY [facility] Last Admin: 05/16/21 09:53 Dose: 1 mg Documented by: ABDI Gabapentin (Gabapentin 400 Mg Capsule) 400 mg PO QID [facility] Last Admin: 05/16/21 20:15 Dose: 400 mg Documented by: MARIAH Hydrochlorothiazide (Hydrochlorothiazide 12.5 Mg Tablet) 12.5 mg PO DAILY [facility] Last Admin: 05/16/21 10:04 Dose: 12.5 mg Documented by: ABDI Levofloxacin (Levaquin) 500 mg in 100 mls @ 100 mls/hr IV Q24H [facility] Last Infusion: 05/16/21 13:31 Dose: 0 mls/hr Documented by: ABDI Levothyroxine Sodium (Levothyroxine Sodium 50 Mcg Tablet) 50 mcg PO DAILY@0600 [facility] Last Admin: 05/17/21 05:34 Dose: 50 mcg Documented by: MARIAH Lidocaine (Lidocaine 4 % Patch Adh..Patch) 1 patch TRANSDERMA DAILY [facility]; Protocol Last Admin: 05/16/21 09:56 Dose: 1 patch Documented by: ABDI Lisinopril (Lisinopril 20 Mg Tablet) 20 mg PO DAILY [facility] Last Admin: 05/16/21 09:50 Dose: 20 mg Documented by: ABDI Magnesium Oxide (Magnesium Oxide 400 Mg Tablet) 400 mg PO BIDPC [facility] Last Admin: 05/16/21 18:31 Dose: 400 mg Documented by: ABDI Meclizine HCl (Meclizine Hcl 25 Mg Tablet) 25 mg PO BID PRN PRN Reason: Dizziness Metoprolol Tartrate (Metoprolol Tartrate 25 Mg Tablet) 25 mg PO QID [facility]; Protocol Last Admin: 05/16/21 20:16 Dose: 25 mg Documented by: MARIAH Mirabegron (Mirabegron 25 Mg Tab.Er.24h) 25 mg PO DAILY [facility] Last Admin: 05/16/21 09:50 Dose: 25 mg Documented by: ABDI Nystatin (Nystatin Cream 15 Gm Tube) 1 appl TOPICAL BID [facility]; Protocol Last Admin: 05/16/21 20:19 Dose: 1 appl Documented by: MARIAH Omeprazole (Omeprazole 20 Mg Capsule.Dr) 20 mg PO DAILY@0630 [facility] Last Admin: 05/17/21 05:34 Dose: 20 mg Documented by: MARIAH Ondansetron HCl (Ondansetron Odt 4 Mg Tab.Rapdis) 4 mg TRANSLINGU BEDTIME [facility] Last Admin: 05/16/21 20:16 Dose: 4 mg Documented by: MARIAH Oxycodone HCl (Oxycodone Hcl Immed Release 5 Mg Tablet) 5 mg PO Q4H PRN PRN Reason: Pain, Mild (Pain Scale 1-3) Last Admin: 05/16/21 19:23 Dose: 5 mg Documented by: AMY Pharmacy Consult (Consult Rx Perform Med Rec) 1 each MISCELLANE ONCE PRN PRN Reason: Consult order Sodium Chloride (0.9 % Sodium Chloride Flush 3 Ml Syringe) 3 ml IVFLUSH QSHIFT [facility] Last Admin: 05/16/21 23:29 Dose: 3 ml Documented by: MARIAH Tramadol HCl (Tramadol Hcl 50 Mg Tablet) 50 mg PO Q4H PRN PRN Reason: Pain, Severe (Pain Scale 7-10) Last Admin: 05/15/21 12:24 Dose: 50 mg Documented by: ABDI Verapamil HCl (Verapamil Hcl Sr 120 Mg Tablet.Er) 120 mg PO DAILY [facility]; Protocol Last Admin: 05/16/21 09:49 Dose: 120 mg Documented by: ABDI Labs CBC & Chem 7: 05/16/21 17:40 05/15/21 15:10 Labs: Laboratory Results - last 24 hr 05/16/21 09:07 Uric Acid 5.2 Assessment and Plan (1) Urinary tract infection due to ESBL Klebsiella: Status: Acute Plan 71/f with multiple medical issues including history of AFIB, stroke, here with confusion and found to have UTI, likely has encephalopathy from UTI. 1/Toxic encephalopathy likely from UTI-Treate Underlying UTI, gentle hydration, also multiple pain/seadtive meds might be contributing neuro :? toxic metabolic encephalopathy, no need to repeat MRI since it was done 3 days ago. hip CTs -OA seems slightly improving mental status Continue IV antibiotic Softer blood pressure-not due to sepsis since patient does not have any new syptoms otherwise asymptomatic, blood cultures neg@48hrs, blood pressure drop possible due to to blood pressure medications, will hold off lisinopril, hydrochlorothiazide, adjust metoprolol back to 25 b.i.d.. Add gentle hydration. Will get knee and ankle x-ray, uric acid-continue tramdol,tylenol , lidocaine patch, flexril 2/Polymicrobial UTI (Klebsiela and E. Feacalis) --Use levaquin as covers both. 3/Peristent AFIB- rate is improving atay 162-295-faezactg Metoprolol, Verapamil and continue Eliquis,off cardizem drip . 4/HTN-- softer blood pressure ,will add ivf Verapamil, Lisinopril, HCTZ,? and Metoprolol 5/HLD--Lipitor 6/Hypothyroidism--Levothyroxin 7/GERD--PPI 8/Neuropathy--Gabapentin 9/Hypomagnesemia--Replaced, repeat level tomorrow 10/ DVT prophylaxis-- Eliquis. 11. vaginal bleeding: d/w Art -added pelvic us , repeat h/h seems stable yesterday , no new episode. follow up outpatient. ?PT eval-str Quality Stroke Does the patient have a stroke diagnosis?: No VTE Prior VTE?: No VTE Risk Level:: Medical - moderate - high VTE Device Contraindication: Treatment Not Indicated VTE Drug Contraindication: N/A - Med Ordered
[2021-05-17] MEDS: Folic Acid 1 MG TABLET PO (10:32)
[2021-05-17] MEDS: 0.9 % Sodium Chloride Flush 3 ML SYRINGE IVFLUSH (10:32)
[2021-05-17] MEDS: VerapamiL HCL SR 120 MG TABLET.ER PO (10:33)
[2021-05-17] MEDS: Metoprolol Tartrate 25 MG TABLET PO ×2 (10:33→14:36)
[2021-05-17] MEDS: lisinopriL 20 MG TABLET PO (10:33)
[2021-05-17] MEDS: Magnesium Oxide 400 MG TABLET PO ×2 (10:33→18:18)
[2021-05-17] MEDS: hydroCHLOROthiazide 12.5 MG TABLET PO (10:34)
[2021-05-17] MEDS: Cyclobenzaprine HCl 10 MG TABLET PO ×2 (10:34→14:36)
[2021-05-17] MEDS: levoFLOXacin/D5W 500 MG/100 ML PIGGYBACK 100 MG IV (10:34)
[2021-05-17] MEDS: Mirabegron 25 MG TAB.ER.24H PO (10:34)
[2021-05-17] MEDS: Gabapentin 400 MG CAPSULE PO ×4 (10:34→22:53)
[2021-05-17] MEDS: Celecoxib 200 MG CAPSULE PO (10:34)
[2021-05-17] MEDS: Apixaban 5 MG TABLET PO ×2 (10:35→22:52)
[2021-05-17] MEDS: Lidocaine 4 % Patch ADH..PATCH 1 PATCH TRANSDERMA (10:37)
[2021-05-17] MEDS: oxyCODONE HCl Immed Release 5 MG TABLET PO (10:48)
[2021-05-17] MEDS: Acetaminophen 325 MG TABLET 650 MG PO (10:49)
[2021-05-17 13:49] LABS: COVID-19 Test Negative (Negative); IDNOW Serial# 16C4AD1C
[2021-05-17] MEDS: Ondansetron ODT 4 MG TAB.RAPDIS TRANSLINGU (22:53)
[2021-05-17] MEDS: Nystatin Cream 15 GM TUBE 1 APPL TOPICAL (23:48)
[2021-05-17] MEDS: Lactated Ringers 1,000 ML 100 ML IVCONT (23:48)
[2021-05-18 03:45] VITALS: BP 124/68; PULSE 93; RESP 18; TEMP 35.7; O2SAT 94
[2021-05-18] MEDS: Levothyroxine Sodium 50 MCG TABLET PO (06:03)
[2021-05-18] MEDS: Omeprazole 20 MG CAPSULE.DR PO (06:03)
[2021-05-18 07:41] VITALS: BP 121/78; PULSE 84; RESP 18; TEMP 37.2; O2SAT 98
[2021-05-18] MEDS: Lidocaine 4 % Patch ADH..PATCH 1 PATCH TRANSDERMA (08:19)
[2021-05-18] MEDS: levoFLOXacin/D5W 500 MG/100 ML PIGGYBACK 100 MG IV (08:19)
[2021-05-18] MEDS: Magnesium Oxide 400 MG TABLET PO (08:19)
[2021-05-18] MEDS: polyethylene glycoL 3350 17 GM POWD.PACK PO (08:19)
[2021-05-18] MEDS: Folic Acid 1 MG TABLET PO (08:19)
[2021-05-18] MEDS: Docusate Sodium 100 MG CAPSULE PO (08:20)
[2021-05-18] MEDS: Mirabegron 25 MG TAB.ER.24H PO (08:20)
[2021-05-18] MEDS: Metoprolol Tartrate 25 MG TABLET PO (08:20)
[2021-05-18] MEDS: Cyclobenzaprine HCl 10 MG TABLET PO (08:20)
[2021-05-18] MEDS: Gabapentin 400 MG CAPSULE PO ×2 (08:20→12:09)
[2021-05-18] MEDS: Celecoxib 200 MG CAPSULE PO (08:20)
[2021-05-18] MEDS: Apixaban 5 MG TABLET PO (08:20)
[2021-05-18] MEDS: Atorvastatin Calcium 40 MG TABLET PO (08:20)
[2021-05-18] MEDS: VerapamiL HCL SR 120 MG TABLET.ER PO (08:20)
[2021-05-18] MEDS: 0.9 % Sodium Chloride Flush 3 ML SYRINGE IVFLUSH (08:21)
[2021-05-18] MEDS: Nystatin Cream 15 GM TUBE 1 APPL TOPICAL (08:21)
[2021-05-18] MEDS: Lactated Ringers 1,000 ML 100 ML IVCONT (09:16)
--- NOTE | 2021-05-18 10:02 | MHC.CM.PN ---
Patient has been medically cleared for dc to Acute Rehab today. Patient will dc to [facility] today at 1 PM, via [facility]. Second IMM addressed with Patient and S.O. and original given to them and a copy placed on the chart.
[2021-05-18 11:13] VITALS: BP 100/66; PULSE 80; RESP 18; TEMP 37.2; O2SAT 96
== END 2021-05-18 13:26 | disposition skilled nursing facility (03) | DRG 689 ==
LOC: HO.ED 09:21 → HO.EDOVER 16:01 → HO.S3 19:06 → HO.IMC 05-14 09:55
PROVIDERS: Admitting Provider Internal Medicine; Emergency Provider Emergency Medicine; PCP Internal Medicine; Visit Provider Internal Medicine
DX: N39.0 Urinary tract infection, site not specified (principal); G92.8 Other toxic encephalopathy; Z16.12 Extended spectrum beta lactamase (ESBL) resistance; I48.19 Other persistent atrial fibrillation; E03.9 Hypothyroidism, unspecified; K21.9 Gastro-esophageal reflux disease without esophagitis; E78.5 Hyperlipidemia, unspecified; B95.2 Enterococcus as the cause of diseases classified elsewhere; G62.9 Polyneuropathy, unspecified; E83.42 Hypomagnesemia; E87.6 Hypokalemia; F41.9 Anxiety disorder, unspecified; N93.9 Abnormal uterine and vaginal bleeding, unspecified; B96.1 Klebsiella pneumoniae [K. pneumoniae] as the cause of diseases classified elsewhere; E66.9 Obesity, unspecified; M19.90 Unspecified osteoarthritis, unspecified site; Z68.33 Body mass index [BMI] 33.0-33.9, adult; Z86.73 Personal history of transient ischemic attack (TIA), and cerebral infarction without residual deficits; Z20.822 Contact with and (suspected) exposure to COVID-19; Z79.01 Long term (current) use of anticoagulants; Z79.890 Hormone replacement therapy; Z79.899 Other long term (current) drug therapy
CPT/HCPCS: 36415; 70450; 70551; 71045; 72192; 73560; 73610; 73700; 76856; 80048; 80076; 80307; 81001; 81003; 82607; 82746; 82803; 82947; 83605; 83690; 83735; 83880; 84443; 84484; 84550; 85014; 85018; 85025; 85610; 87040; 87086; 87088; 87186; 87635; 92610; 93005; 96361; 96365; 96366; 96367; 96375; 96376; 97110; 97116; 97162; 97530; 99285; J0696; J1956; J2060; J2185; J3475

== ENCOUNTER 2021-05-18 14:42 | Emergency (ER) | payer MEDICARE, SELFPAY ==
[2021-05-18 15:09] VITALS: BP 100/60; PULSE 69; RESP 18; TEMP 36.1; O2SAT 97; BMI 31.9
--- NOTE | 2021-05-18 16:20 | PHA.MEDREC ---
Pharmacy Consult ? Medication Reconciliation Pharmacy has completed the medication reconciliation.
[2021-05-18 16:25] VITALS: BP 109/64; PULSE 77; RESP 16; TEMP 36.9; O2SAT 97
--- NOTE | 2021-05-18 16:33 | ED.GENADULT ---
HPI - General Adult General Chief complaint: General Medical Stated complaint: RETURN S/P D/C TO SNF D/T NOT LIKING THE VISIT CLAY Time Seen by Provider: 05/18/21 14:56 Source: patient and EMS Mode of arrival: EMS History of Present Illness HPI narrative: 71-year-old female with a past medical history of anxiety, arthritis, asthma, carpal tunnel, chronic pain, GERD, HTN, hypothyroid, obesity, AFib with hx CVA on Eliquis, OA, discharged from our facility to STR this morning s/p admission for UTI due to ESBL Klebsiella/encephalopathy presenting back to ED as patient unhappy with visitor policy at rehab. Patient reports she has 5 family members flying in from [place] tomorrow and rehab only allows 1 visitor per day, and that is not acceptable to her so she returned to ED for different STR placement. Patient offers no complaints at present. Denies fever, cough, abdominal pain, dysuria/hematuria, CP/SOB Onset (ago): hour(s) Related Data Home Medications Medication Instructions Recorded Confirmed apixaban 5 mg tablet (Eliquis) 5 mg PO BID 03/27/20 05/18/21 atorvastatin 40 mg tablet 40 mg PO DAILY 03/27/20 05/18/21 celecoxib 200 mg capsule 200 mg PO DAILY 03/27/20 05/18/21 conj estrogen-medroxyprogesterone 1 tab PO DAILY 03/27/20 05/18/21 0.625 mg-2.5 mg tablet (Prempro) levothyroxine 50 mcg capsule 50 mcg PO DAILY 03/27/20 05/18/21 lisinopril 20 1 tab PO DAILY 03/27/20 05/18/21 mg-hydrochlorothiazide 12.5 mg tablet omeprazole 20 mg capsule,delayed 20 mg PO DAILY 03/27/20 05/18/21 release verapamil 120 mg 24 hr 120 mg PO DAILY 03/27/20 05/18/21 capsule,extended release kotbvibxbk-juuhwirijbfgi-fshsocwb 1 tab PO DAILY PRN 05/13/21 05/18/21 50 mg-325 mg-40 mg tablet gabapentin 400 mg capsule 1 cap PO QID 05/13/21 05/18/21 hydrocodone 5 mg-acetaminophen 325 1 tab PO BID PRN 05/13/21 05/18/21 mg tablet meclizine 25 mg tablet 1 tab PO BID PRN 05/13/21 05/18/21 mirabegron 25 mg tablet,extended 1 tab PO DAILY 05/13/21 05/18/21 release 24 hr (Myrbetriq) ondansetron HCl 4 mg tablet 1 tab PO BEDTIME 05/13/21 05/18/21 Previous Rx's Medication Instructions Recorded tramadol 50 mg tablet 50 mg PO Q8H PRN #90 tab 09/21/20 cyclobenzaprine 10 mg tablet 10 mg PO TID #10 tab 02/08/21 levofloxacin 500 mg tablet 500 mg PO DAILY #5 tab 05/16/21 magnesium oxide 400 mg (241.3 mg 400 mg PO BIDPC #10 tab 05/18/21 magnesium) tablet metoprolol tartrate 25 mg tablet 25 mg PO BID #60 tab 05/18/21 Allergies Allergy/AdvReac Type Severity Reaction Status Date / Time No Known Allergies Allergy Mild N/A Verified 05/13/21 09:01 Review of Systems Review of Systems: Constitutional: No Fever, No Chills, No Fatigue, No Malaise ENT/Mouth: No Ear Pain, No Nasal Congestion, No sore throat, No Rhinorrhea, No Swallowing Difficulty Eyes: No Eye Pain, No Swelling, No Redness Cardiovascular: No Chest Pain, No SOB, No Dyspnea on Exertion, No Orthopnea, No Edema, No Palpitations Respiratory: No Cough, No Sputum, No Dyspnea Gastrointestinal: No Nausea, No Vomiting, No Diarrhea, No Constipation, No Abdominal pain Genitourinary: No Dysuria, No Urinary Frequency, No Hematuria, No Urinary Incontinence, No Flank Pain, No Urinary Flow Changes Musculoskeletal: No joint pain, No Myalgias, No Joint Swelling Skin: No Skin Lesions, No rash Neuro: No Weakness, No Dizziness, No Headache Yes all other systems are reviewed and are negative [facility] Past Medical History Attestation statement: The following information was validated with the patient. Medical History Anxiety Arthritis Asthma Carpal tunnel syndrome Chronic pain GERD (gastroesophageal reflux disease) HTN (hypertension) Hypothyroidism Obesity Persistent atrial fibrillation Primary osteoarthritis involving multiple joints Stroke Surgical History History of bladder surgery History of tonsillectomy Hx of cholecystectomy S/P foot surgery, right S/P panniculectomy Family History Family History Father CVD (cardiovascular disease) Diabetes Mother CVD (cardiovascular disease) HTN (hypertension) Social History Social History Household Members: Family Housing: House Do you presently have visiting nurse or other home services: No Unable to assess alcohol history related to: Unknown Alcohol intake: unknown Patient Tobacco Use Status: Tobacco use Unknown e-Cigarette/Vaping Use: Never Used Advance Directives: No Advance Directives Information Provided: No service: No Current occupational status: retired Physical Exam ED Vital Signs: Vital Signs - 24 hr 05/18/21 15:09 05/18/21 16:25 05/18/21 19:35 Temperature 97 F 98.5 F 97.9 F Pulse Rate 69 77 86 Respiratory Rate 18 16 16 Blood Pressure 100/60 109/64 136/71 Pulse Oximetry 97 97 97 BMI result Body Mass Index 31.9 Const General: cooperative, healthy appearing and no acute distress Orientation/consciousness: patient oriented x3 Limitations: no limitations HENMT Head: Yes normal to inspection Ears: hearing grossly normal bilaterally General nose exam: Normal external nose present Face and sinus: Yes normal facial exam Eyes General: appearance normal, both eyes and all related structures EOM: EOMs intact bilaterally Neck Neck: Yes normal visual inspection and Yes no meningeal signs Resp Effort & Inspection: normal respiratory effort and no respiratory distress Cardio Rate: regular rate Heart sounds: S1 normal heart sound present and S2 normal heart sound present GI Inspection: Yes normal to inspection Palpation (GI): Soft to palpation, nontender and no guarding Skin General skin exam: no rashes or lesions noted Rashes: no rashes Wounds: no wounds Neuro General: patient oriented x3 and no meningeal signs Gait exam (Neuro): Normal gait present Extrem General: Yes normal to inspection Course Course Course Narrative: -[id number]--no leukocytosis. 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 center supervisor) > will obtain 4 hour repeat CBC) -BUN elevatedm uptrending > will give gentle IVF and repeat with repeat CBC -1999--ED care transferred to [facility] Melina pending repeat CBC/BMP and case management consult for placement Medical Decision Making MDM Narrative Medical decision making narrative: 71-year-old female with a past medical history of anxiety, arthritis, asthma, carpal tunnel, chronic pain, GERD, HTN, hypothyroid, obesity, AFib with hx CVA on Eliquis, OA, discharged from our facility to [facility] this morning s/p admission for UTI due to ESBL Klebsiella/encephalopathy presenting back to ED as patient unhappy with visitor policy at rehab. On exam vital signs stable, NAD, nontoxic appearing, offers no complaints at present. Will obtain repeat labs/UA and case management consult Plan: Labs, UA, case management consult, COVID testing Medical Records Medical records reviewed: Yes I reviewed the patient's medical records. Lab Data Lab results reviewed: Yes I reviewed the patient's lab results. Result diagrams: 05/18/21 17:17 05/18/21 17:17 Labs: Lab Results 05/18/21 05/18/21 05/18/21 Range/Units 16:37 17:17 17:17 WBC 8.9 (4.8-10.8) X10*3/uL RBC 3.59 L (4.20-5.50) X10*6/uL Hgb 10.1 L (12.0-16.0) g/dl Hct 31.7 L (37.0-47.0) % MCV 88.3 (80.0-98.0) fL MCH 28.1 (27.0-33.0) pg MCHC 31.9 (31.0-35.0) g/dl RDW 16.4 H (11.0-16.0) % Plt Count 240 D (160-400) X10*3/uL MPV 9.8 (9.4-12.3) fL Immature Gran % (Auto) 0.4 (0.0-0.4) % Neut % (Auto) 64.5 (45-73) % Lymph % (Auto) 15.2 L (20-40) % [facility] [facility] % (Auto) 12.9 H (2-11) % Eos % (Auto) 6.6 H (0-4) % Baso % (Auto) 0.4 (0-2) % Lymph # (Auto) 1.4 (1.2-4.9) X10*3/uL [facility] [place] [facility] # (Auto) 1.2 (0.1-1.2) X10*3/uL Eos # (Auto) 0.6 H (0.0-0.4) X10*3/uL Baso # (Auto) 0.0 (0.0-0.2) X10*3/uL Abs Immat Gran (auto) 0.04 H (0.00-0.03) X10*3/uL Absolute Neuts (auto) 5.8 (2.0-8.3) x10*3/uL Absolute Nucleated RBC 0.000 (0.0-0.012) X10*3/uL Nucleated RBC % (auto) 0.0 (0.0-0.2) /100WBC Sodium 137 (135-145) mmol/L Potassium 3.8 (3.3-5.1) mmol/L Chloride 100 (96-108) mmol/L Carbon Dioxide 28 (22-29) mmol/L Anion Gap 13 (12-20) BUN 28 H (9-16) mg/dL Creatinine 0.73 (0.5-1.4) mg/dL Estim Creat Clear Calc 72.1 Estimated GFR > 60 Random Glucose 97 (60-115) mg/dL Calcium 9.3 (8.4-10.2) mg/dL Magnesium 1.6 (1.6-2.6) mg/dL COVID-19 (KEVIN) Negative (Negative) COVID-19 Clin Com See Note Discharge Plan Discharge Clinical Impression: Encounter for rehabilitation Patient Disposition: Still a Patient Prescriptions: No Action cyclobenzaprine 10 mg tablet 10 mg PO TID Qty: 10 0RF hydrocodone-acetaminophen 5-325 mg tablet 1 tab PO BID PRN (Reason: Pain) 0RF ondansetron HCl 4 mg tablet 1 tab PO BEDTIME 0RF gabapentin 400 mg capsule 1 cap PO QID 0RF gyokdqlagc-xfsmqbhicpzxa-txjw 50-325-40 mg tablet 1 tab PO DAILY PRN (Reason: Headache) 0RF meclizine 25 mg tablet 1 tab PO BID PRN (Reason: Dizziness) 0RF Myrbetriq 25 mg tablet extended release 24 hr 1 tab PO DAILY 0RF levofloxacin 500 mg tablet 500 mg PO DAILY Qty: 5 0RF metoprolol tartrate 25 mg Tablet 25 mg PO BID Qty: 60 0RF Protocol: Hold for SBP/HR < HOLD for SBP < : 90 HOLD for HR < : 60 magnesium oxide 400 mg (241.3 mg magnesium) Tablet 400 mg PO BIDPC Qty: 10 0RF Prempro 0.625-2.5 mg tablet 1 tab PO DAILY 0RF omeprazole 20 mg capsule,delayed release(DR/EC) 20 mg PO DAILY 0RF celecoxib 200 mg capsule 200 mg PO DAILY 0RF levothyroxine 50 mcg capsule 50 mcg PO DAILY 0RF Eliquis 5 mg tablet 5 mg PO BID 0RF atorvastatin 40 mg tablet 40 mg PO DAILY 0RF lisinopril-hydrochlorothiazide 20-12.5 mg tablet 1 tab PO DAILY 0RF Hold Instructions: Resume on 05/21/21. use if blood pressures allows. verapamil 120 mg capsule,ext rel. pellets 24 hr 120 mg PO DAILY 0RF tramadol 50 mg tablet 50 mg PO Q8H PRN (Reason: pain) Qty: 90 5RF
--- NOTE | 2021-05-18 17:08 | PC.NURSE ---
PATIENT WAS CHANGE INTO HOSPITAL ATTIRE .
[2021-05-18 17:10] LABS: COVID-19 Test Negative (Negative); IDNOW Serial# 16C4AD1C
[2021-05-18 17:22] LABS: MANUAL DIFF FLAG NO
[2021-05-18 17:23] LABS: Basophils Percent Auto 0.4 % (0-2); Eosinophils Absolute Auto 0.6 X10*3/uL (0.0-0.4); Eosinophils Percent Auto 6.6 % (0-4); Hematocrit 31.7 % (37.0-47.0); Hemoglobin 10.1 g/dl (12.0-16.0); Imm Gran Abs Auto 0.04 X10*3/uL (0.00-0.03); Imm Gran Pct Auto 0.4 % (0.0-0.4); Lymphocytes Absolute Auto 1.4 X10*3/uL (1.2-4.9); Lymphocytes Percent Auto 15.2 % (20-40); Mean Corpuscular HGB Conc 31.9 g/dl (31.0-35.0); Mean Corpuscular Hemoglobin 28.1 pg (27.0-33.0); Mean Corpuscular Volume 88.3 fL (80.0-98.0); Mean Platelet Volume 9.8 fL (9.4-12.3); Monocytes Absolute Auto 1.2 X10*3/uL (0.1-1.2); Monocytes Percent Auto 12.9 % (2-11); Neutrophils Absolute Auto 5.8 x10*3/uL (2.0-8.3); Neutrophils Percent Auto 64.5 % (45-73); Platelet Count 240 X10*3/uL (160-400); Red Blood Count 3.59 X10*6/uL (4.20-5.50); Red Cell Distribution Width 16.4 % (11.0-16.0); White Blood Count 8.9 X10*3/uL (4.8-10.8)
[2021-05-18 17:42] LABS: Anion Gap 13 (12-20); Blood Urea Nitrogen 28 mg/dL (9-16); Calcium 9.3 mg/dL (8.4-10.2); Carbon Dioxide 28 mmol/L (22-29); Chloride 100 mmol/L (96-108); Creatinine Clr Calc Pharmacy 72.1; Estimated Glomerular Filt Rate > 60; Glucose Random 97 mg/dL (60-115); Magnesium 1.6 mg/dL (1.6-2.6); Potassium 3.8 mmol/L (3.3-5.1); Sodium 137 mmol/L (135-145)
[2021-05-18] MEDS: 0.9 % Sodium Chloride 500 ML 999 ML IV (19:06)
[2021-05-18 19:35] VITALS: BP 136/71; PULSE 86; RESP 16; TEMP 36.6; O2SAT 97
[2021-05-18 21:15] LABS: Anion Gap 12 (12-20); Blood Urea Nitrogen 26 mg/dL (9-16); Calcium 8.3 mg/dL (8.4-10.2); Carbon Dioxide 23 mmol/L (22-29); Chloride 104 mmol/L (96-108); Creatinine Clr Calc Pharmacy 83.6; Estimated Glomerular Filt Rate > 60; Glucose Random 122 mg/dL (60-115); Potassium 3.3 mmol/L (3.3-5.1); Sodium 136 mmol/L (135-145)
[2021-05-18 21:32] LABS: MANUAL DIFF FLAG NO
[2021-05-18 21:33] LABS: Basophils Percent Auto 0.4 % (0-2); Eosinophils Absolute Auto 0.5 X10*3/uL (0.0-0.4); Eosinophils Percent Auto 7.2 % (0-4); Hematocrit 27.2 % (37.0-47.0); Hemoglobin 8.5 g/dl (12.0-16.0); Imm Gran Abs Auto 0.02 X10*3/uL (0.00-0.03); Imm Gran Pct Auto 0.3 % (0.0-0.4); Lymphocytes Absolute Auto 1.3 X10*3/uL (1.2-4.9); Lymphocytes Percent Auto 18.5 % (20-40); Mean Corpuscular HGB Conc 31.3 g/dl (31.0-35.0); Mean Corpuscular Hemoglobin 28.1 pg (27.0-33.0); Mean Corpuscular Volume 89.8 fL (80.0-98.0); Mean Platelet Volume 9.5 fL (9.4-12.3); Monocytes Absolute Auto 0.9 X10*3/uL (0.1-1.2); Monocytes Percent Auto 12.9 % (2-11); Neutrophils Absolute Auto 4.4 x10*3/uL (2.0-8.3); Neutrophils Percent Auto 60.7 % (45-73); Platelet Count 231 X10*3/uL (160-400); Red Blood Count 3.03 X10*6/uL (4.20-5.50); Red Cell Distribution Width 16.2 % (11.0-16.0); White Blood Count 7.3 X10*3/uL (4.8-10.8)
[2021-05-18 22:00] VITALS: BP 132/76; PULSE 84; RESP 16; TEMP 36.1; O2SAT 98
[2021-05-18 23:51] VITALS: BP 126/71; PULSE 89; RESP 24; O2SAT 95
[2021-05-19 00:23] VITALS: BP 119/72; PULSE 86; RESP 16; TEMP 37.1; O2SAT 96
[2021-05-19 00:54] LABS: Appearance Urine HAZY; Color Urine YELLOW; Glucose Urine UA NEG (NEG); Leukocyte Esterase Urine 1+ (NEG); Nitrite Urine NEG (NEG); Specific Gravity - Urine >= 1.030 (1.005-1.025); UACC Culture Trigger YES; Urine Blood 2+ (NEG); Urine Ketones NEG (NEG); Urine Protein NEG (NEG-TRACE)
[2021-05-19 01:06] LABS: Bacteria Urine TRACE /LPF; Mucus Urine 3+ /LPF; Squamous Epithelial Cell Urine 2+ /LPF
--- NOTE | 2021-05-19 01:37 | PC.NURSE ---
When this RN to bedside to assess pt, pt aaox3 disoriented to time. Pt is cooperative with pt care and pleasant to staff, reiterates her frustration with going to a STR with such strict visitation policy. Pt assisted to bedside commode with 2 person assist to urinate. Pt assisted back to stretcher without incidence. Pt cleaned, barrier cream applied as pt has redness to lynne area likely d/t previous incontinence. Urine sent to lab for processing, negative results discussed with Melina CRISOSTOMO. Pt VSS on RA. Pt reports she had previously had vaginal bleeding. This RN inspects lynne area, no bleeding noted during inspection, urinary void, or cleaning after void. Pt padded with pillows for comfort and skin precautions. Pt stretcher in low locked position, rails raised, call tate within reach, red fall prevention socks and red fall alert bracelet applied. This RN discusses dispo with Melina CRISOSTOMO who places CM c/s order. Report called to DARON Waldrop in Overflow and pt transferred.
[2021-05-19 02:00] VITALS: BP 119/74; PULSE 86; RESP 16; TEMP 36.9; O2SAT 96
[2021-05-19 06:00] VITALS: BP 120/78; PULSE 85; RESP 16; TEMP 36.8; O2SAT 96
[2021-05-19 10:00] VITALS: BP 144/87; PULSE 83; RESP 18; TEMP 36.7
[2021-05-19] MEDS: lisinopriL 20 MG TABLET PO (10:34)
[2021-05-19] MEDS: Cyclobenzaprine HCl 10 MG TABLET PO (10:34)
[2021-05-19] MEDS: hydroCHLOROthiazide 12.5 MG TABLET PO (10:34)
[2021-05-19] MEDS: Atorvastatin Calcium 40 MG TABLET PO (10:35)
[2021-05-19] MEDS: Gabapentin 400 MG CAPSULE PO (10:35)
[2021-05-19] MEDS: Metoprolol Tartrate 25 MG TABLET PO (10:35)
[2021-05-19] MEDS: Apixaban 5 MG TABLET PO (10:35)
[2021-05-19] MEDS: Magnesium Oxide 400 MG TABLET PO (10:47)
[2021-05-19] MEDS: VerapamiL HCL SR 120 MG TABLET.ER PO (12:49)
[2021-05-19] MEDS: Mirabegron 25 MG TAB.ER.24H PO (12:49)
[2021-05-19] MEDS: levoFLOXacin 500 MG TABLET PO (12:49)
[2021-05-19] MEDS: Butalb/Acetamin/Caff 50/325/40 TABLET 1 TAB PO (12:53)
== END 2021-05-19 15:09 | disposition skilled nursing facility (03) ==
PROVIDERS: Physician Assistant; Emergency Provider Internal Medicine; PCP Internal Medicine
DX: Z02.2 Encounter for examination for admission to residential institution (principal); N39.0 Urinary tract infection, site not specified; Z20.822 Contact with and (suspected) exposure to COVID-19; I10 Essential (primary) hypertension; I48.91 Unspecified atrial fibrillation; Z79.01 Long term (current) use of anticoagulants
CPT/HCPCS: 36415; 80048; 81001; 83735; 85025; 87086; 87635; 99285

== ENCOUNTER 2021-06-25 12:13 | Outpatient (REF) | payer MEDICARE, SELFPAY ==
[2021-06-25 13:04] LABS: Ammonia 14 umol/L (13-55)
== END 2021-06-25 12:14 | disposition home or self-care (01) ==
LOC: HO.LAB 12:13
PROVIDERS: PCP Internal Medicine; Visit Provider Internal Medicine
DX: R41.841 Cognitive communication deficit (principal)
CPT/HCPCS: 36415; 82140

== ENCOUNTER 2021-07-12 10:29 | Outpatient (REF) | payer MEDICARE, SELFPAY ==
[2021-07-12 11:00] LABS: Appearance Urine CLOUDY; Glucose Urine UA NEG (NEG); Leukocyte Esterase Urine 1+ (NEG); Nitrite Urine NEG (NEG); PH 6.5 (5.0-8.0); Specific Gravity - Urine <= 1.005 (1.005-1.025); Urine Blood 3+ (NEG); Urine Ketones NEG (NEG); Urine Protein NEG (NEG-TRACE)
[2021-07-12 13:43] LABS: Amorphous Sediment Urine 3+ /LPF; Bacteria Urine 4+ /LPF
[2021-07-12 13:52] LABS: Color Urine YELLOW
[2021-07-12 13:53] LABS: UACC Culture Trigger NO
== END 2021-07-12 10:30 | disposition home or self-care (01) ==
LOC: HO.LNP 10:29
PROVIDERS: Visit Provider Internal Medicine
DX: N39.0 Urinary tract infection, site not specified (principal)
CPT/HCPCS: 81001; 81003; 87086; 87088; 87186

== ENCOUNTER 2021-07-15 11:11 | Outpatient (REF) | payer MEDICARE, SELFPAY ==
[2021-07-15 11:15] LABS: Urine Cytology See Pathology rpt
[2021-07-15 12:41] LABS: Appearance Urine HAZY; Color Urine YELLOW; Glucose Urine UA NEG (NEG); Leukocyte Esterase Urine TRACE (NEG); Nitrite Urine NEG (NEG); Specific Gravity - Urine <= 1.005 (1.005-1.025); Urine Blood NEG (NEG); Urine Ketones NEG (NEG); Urine Protein NEG (NEG-TRACE)
[2021-07-15 12:56] LABS: Bacteria Urine 4+ /LPF; Squamous Epithelial Cell Urine 2+ /LPF
[2021-07-15 12:58] LABS: RBC Urine 0 /HPF (0)
== END 2021-07-15 11:12 | disposition home or self-care (01) ==
LOC: HO.LNP 11:11
PROVIDERS: Visit Provider Internal Medicine
DX: R31.9 Hematuria, unspecified (principal)
CPT/HCPCS: 81001; 81003; 87086; 87088; 87186; 88112

== ENCOUNTER → 2021-07-29 14:02 | Outpatient (BNVA) | payer MEDICARE, SELFPAY | PROVIDERS: PCP Internal Medicine; Visit Provider Obstetrics & Gynecology | DX: N95.0 Postmenopausal bleeding (principal); R93.41 Abnormal radiologic findings on diagnostic imaging of renal pelvis, ureter, or bladder; L23.9 Allergic contact dermatitis, unspecified cause | CPT/HCPCS: 99202 ==

== ENCOUNTER → 2021-08-14 12:51 | Outpatient (BNVA) | payer MEDICARE, SELFPAY | PROVIDERS: PCP Internal Medicine; Visit Provider Obstetrics & Gynecology | DX: L23.9 Allergic contact dermatitis, unspecified cause (principal) | CPT/HCPCS: 99212 ==

== ENCOUNTER 2021-08-16 10:37 | Outpatient (REF) | payer MEDICARE, SELFPAY ==
[2021-08-16 10:46] LABS: Appearance Urine HAZY; Color Urine YELLOW; Glucose Urine UA NEG (NEG); Leukocyte Esterase Urine NEG (NEG); Nitrite Urine POS (NEG); PH 6.5 (5.0-8.0); Specific Gravity - Urine <= 1.005 (1.005-1.025); Urine Blood NEG (NEG); Urine Ketones NEG (NEG); Urine Protein NEG (NEG-TRACE)
[2021-08-16 10:52] LABS: Bacteria Urine 3+ /LPF; RBC Urine 0-2 /HPF (0); Squamous Epithelial Cell Urine TRACE /LPF; WBC Urine 0-2 /HPF (0-4)
== END 2021-08-16 10:38 | disposition home or self-care (01) ==
LOC: HO.LNP 10:37
PROVIDERS: Visit Provider Internal Medicine
DX: N39.0 Urinary tract infection, site not specified (principal)
CPT/HCPCS: 81001; 87086; 87088; 87186

== ENCOUNTER 2021-10-22 13:55 | Outpatient (REF) | payer MEDICARE, SELFPAY | END 2021-10-22 13:56 | disposition home or self-care (01) | LOC: HO.LNP 13:55 | PROVIDERS: Visit Provider Internal Medicine | DX: N30.00 Acute cystitis without hematuria (principal) | CPT/HCPCS: 87086; 87088; 87186 ==

== ENCOUNTER 2021-11-11 15:55 | Outpatient (REF) | payer MEDICARE, SELFPAY ==
[2021-11-11 16:10] LABS: Appearance Urine Cloudy; Color Urine Yellow; Glucose Urine UA Negative (Negative); Leukocyte Esterase Urine Negative (Negative); Nitrite Urine Positive (Negative); Urine Blood Negative (Negative); Urine Ketones Trace mg/dL (Negative); Urine Protein Trace mg/dL (Neg-Trace)
[2021-11-11 16:37] LABS: Bacteria Urine 4+ (None Seen); RBC Urine >20 /HPF (0-2); Squamous Epithelial Cell Urine 0-2 /HPF (0-2); UACC Culture Trigger YES; WBC Urine 0-5 /HPF (0-5)
== END 2021-11-11 15:56 | disposition home or self-care (01) ==
LOC: HO.LNP 15:55
PROVIDERS: Visit Provider Internal Medicine
DX: N30.00 Acute cystitis without hematuria (principal)
CPT/HCPCS: 81001; 87086; 87088; 87186

== ENCOUNTER → 2021-12-17 14:35 | Outpatient (BNVA) | payer MEDICARE, SELFPAY | PROVIDERS: PCP Internal Medicine; Visit Provider Nurse Practitioner Family | DX: M89.49 Other hypertrophic osteoarthropathy, multiple sites (principal); M19.011 Primary osteoarthritis, right shoulder; M19.012 Primary osteoarthritis, left shoulder; M17.0 Bilateral primary osteoarthritis of knee; G89.29 Other chronic pain; M54.50 Low back pain, unspecified | CPT/HCPCS: 99212 ==

== ENCOUNTER 2022-01-07 11:26 | Outpatient (REF) | payer MEDICARE, SELFPAY ==
[2022-01-07 12:08] LABS: Appearance Urine Cloudy; Color Urine Yellow; Glucose Urine UA Negative (Negative); Leukocyte Esterase Urine Trace (Negative); Nitrite Urine Positive (Negative); PH 6.5 (5.0-9.0); UMIC TRIGGER UA YES; Urine Blood Negative (Negative); Urine Ketones Negative (Negative); Urine Protein Trace mg/dL (Neg-Trace)
[2022-01-07 14:05] LABS: Bacteria Urine 4+ (None Seen); Hyaline Casts Urine 0-2 /LPF (0-2); Squamous Epithelial Cell Urine 0-2 /HPF (0-2); WBC Urine 0-5 /HPF (0-5)
== END 2022-01-07 11:27 | disposition home or self-care (01) ==
LOC: HO.LNP 11:26
PROVIDERS: Visit Provider Internal Medicine
DX: N39.0 Urinary tract infection, site not specified (principal)
CPT/HCPCS: 81001; 87086; 87088; 87186

== ENCOUNTER 2022-01-16 00:09 | Emergency (ER) | payer MEDICARE, SELFPAY ==
--- NOTE | ~2022-01-16 | XR_ITS ---
EXAMINATION: XR CHEST CLINICAL INFORMATION: Shortness of breath COMPARISON: 05/13/2021 TECHNIQUE: 2 views of the chest were obtained. FINDINGS: Again noted is an elevated right hemidiaphragm. Some right basilar atelectasis is seen. Heart size normal. No evidence of CHF. No consolidations or effusions. Bilateral shoulder prostheses are present. XR/XR chest 2V IMPRESSION: No acute intrathoracic disease.
[2022-01-16 00:10] VITALS: BP 153/83; PULSE 85; RESP 25; TEMP 36.7; O2SAT 90; BMI 27.4
[2022-01-16 00:20] VITALS: O2SAT 97
--- NOTE | 2022-01-16 00:20 | PC.NURSE ---
Patient arrives now via EMS from home with her , endorsing a worsening cough and SOB x2 weeks. She is alert, oriented to self, birthday, location and year. She has a recent UTI diagnosis and is currently taking antibiotics. Patient anxious, stating I can't breathe. On arrival room air saturations are 90% with anxiety and RR mid 20s, so 2L NC applied on arrival. Patient endorses baseline arthritic pain.
[2022-01-16 00:31] LABS: Basophils Percent Auto 0.3 % (0-2); Hematocrit 35.9 % (37.0-47.0); Hemoglobin 10.9 g/dl (12.0-16.0); Imm Gran Abs Auto 0.05 X10*3/uL (0.00-0.03); Imm Gran Pct Auto 0.7 % (0.0-0.4); Lymphocytes Absolute Auto 1.4 X10*3/uL (1.2-4.9); Lymphocytes Percent Auto 18.7 % (20-40); MANUAL DIFF FLAG NO; Mean Corpuscular HGB Conc 30.4 g/dl (31.0-35.0); Mean Corpuscular Hemoglobin 24.5 pg (27.0-33.0); Mean Corpuscular Volume 80.7 fL (80.0-98.0); Mean Platelet Volume 8.5 fL (9.4-12.3); Monocytes Absolute Auto 0.9 X10*3/uL (0.1-1.2); Monocytes Percent Auto 12.1 % (2-11); Neutrophils Percent Auto 68.2 % (45-73); Platelet Count 298 X10*3/uL (160-400); Red Blood Count 4.45 X10*6/uL (4.20-5.50); Red Cell Distribution Width 15.6 % (11.0-16.0); White Blood Count 7.4 X10*3/uL (4.8-10.8)
--- NOTE | 2022-01-16 00:38 | ED.SOB ---
HPI - SOB/Dyspnea General Chief Complaint: Dyspnea Stated Complaint: COUGH [id number], ?UTI Time Seen by Provider: 01/16/22 00:37 Source: patient Mode of arrival: EMS Limitations: no limitations History of Present Illness HPI Narrative: patient history of AFib, asthma been sick for last 2 weeks coughing with shortness of breath low-grade fever coughing with wheezing saturating 90% at room air was given prednisone and Levaquin last week by the PCP still patient is not feeling better no leg swelling no palpitation or chest pain Related Data Home Medications Medication Instructions Recorded Confirmed apixaban 5 mg tablet (Eliquis) 5 mg PO BID 03/27/20 12/17/21 atorvastatin 40 mg tablet 40 mg PO DAILY 03/27/20 12/17/21 conj estrogen-medroxyprogesterone 1 tab PO DAILY 03/27/20 12/17/21 0.625 mg-2.5 mg tablet (Prempro) levothyroxine 50 mcg capsule 50 mcg PO DAILY 03/27/20 12/17/21 omeprazole 20 mg capsule,delayed 20 mg PO DAILY 03/27/20 12/17/21 release verapamil 120 mg 24 hr 120 mg PO DAILY 03/27/20 12/17/21 capsule,extended release hnqsamgqdq-qwjoazexzcwnd-pwrqvadd 1 tab PO DAILY PRN Headache 05/13/21 12/17/21 50 mg-325 mg-40 mg tablet gabapentin 400 mg capsule 1 cap PO QID 05/13/21 12/17/21 hydrocodone 5 mg-acetaminophen 325 1 tab PO BID PRN Pain 05/13/21 12/17/21 mg tablet mirabegron 25 mg tablet,extended 1 tab PO DAILY 05/13/21 12/17/21 release 24 hr (Myrbetriq) ondansetron HCl 4 mg tablet 1 tab PO BEDTIME 05/13/21 12/17/21 celecoxib 200 mg capsule 200 mg PO DAILY 12/17/21 12/17/21 Previous Rx's Medication Instructions Recorded cyclobenzaprine 10 mg tablet 10 mg PO TID #10 tabs 02/08/21 metoprolol tartrate 25 mg tablet 25 mg PO BID #60 tabs 05/18/21 triamcinolone acetonide 0.1 % 1 appl topical BID 1 week #80 grams 10/31/21 topical cream benzonatate 200 mg capsule 200 mg PO TID PRN cough #30 caps 01/16/22 codeine 10 mg-guaifenesin 100 mg/5 10 ml PO Q6H PRN cough #237 mL 01/16/22 mL oral liquid Allergies Allergy/AdvReac Type Severity Reaction Status Date / Time No Known Allergies Allergy Mild N/A Verified 12/17/21 14:58 Review of Systems Review of Systems: Yes all other systems are reviewed and are negative [facility] Past Medical History Medical History Anxiety Arthritis Asthma Carpal tunnel syndrome Chronic pain GERD (gastroesophageal reflux disease) HTN (hypertension) Hypothyroidism Obesity Persistent atrial fibrillation Primary osteoarthritis involving multiple joints Stroke Surgical History History of bladder surgery History of left shoulder replacement History of right shoulder replacement History of tonsillectomy Hx of cholecystectomy S/P foot surgery, right S/P panniculectomy Family History Family History Father CVD (cardiovascular disease) Diabetes Mother CVD (cardiovascular disease) HTN (hypertension) Social History Social History Household Members: Family Housing: House Do you presently have visiting nurse or other home services: No Unable to assess alcohol history related to: Unknown Alcohol intake: unknown Patient Tobacco Use Status: Tobacco use Unknown e-Cigarette/Vaping Use: Never Used Advance Directives: No Advance Directives Information Provided: No service: No Current occupational status: retired Physical Exam Vital Signs: Vital Signs: Last Vital Signs Temp 98.5 F 01/16/22 02:33 Pulse 103 H 01/16/22 02:33 Resp 19 01/16/22 02:33 BP 141/75 H 01/16/22 02:33 Pulse Ox 95 01/16/22 02:33 O2 Del Method 01/16/22 02:33 O2 Flow Rate 2 01/16/22 02:33 BMI result Body Mass Index 27.4 Appearance: Alert. Oriented X3. No acute distress. frequent dry cough saturating 97% on 2 L nasal oxygen Eyes: PERRLA, No Nystagmus ENT: Pharynx normal. Oral Mucosa moist Neck: Normal inspection. Neck supple. CVS: Normal heart rate and rhythm. Pulses normal. Respiratory: No respiratory distress. Equal air entry bilateral, bilateral prolonged expiration with few crackles Abdomen: Soft and nontender. Bowel sounds are present, no mass palpable, no CVA tenderness Skin: Skin warm and dry. Normal skin color. Normal skin turgor. Extremities: No lower extremity edema. No calf tenderness Neuro: Oriented X 3. No motor deficit. MDM - SOB/Dyspnea MDM Narrative Medical decision making narrative: patient workup showed RSV positive chest x-ray negative labs are stable patient still coughing a lot ,saturating 92% at room air will discharge patient home advised supportive treatment Medical Records Attestation: I reviewed the patient's medical records. Lab Data Attestation: I reviewed the patient's lab results. Result diagrams: 01/16/22 00:26 01/16/22 00:49 Labs: Lab Results 01/16/22 01/16/22 01/16/22 Range/Units 00:26 00:26 00:49 WBC 7.4 (4.8-10.8) X10*3/uL RBC 4.45 D (4.20-5.50) X10*6/uL Hgb 10.9 L D (12.0-16.0) g/dl Hct 35.9 L D (37.0-47.0) % MCV 80.7 (80.0-98.0) fL MCH 24.5 L (27.0-33.0) pg MCHC 30.4 L (31.0-35.0) g/dl RDW 15.6 (11.0-16.0) % Plt Count 298 D (160-400) X10*3/uL MPV 8.5 L (9.4-12.3) fL Immature Gran % (Auto) 0.7 H (0.0-0.4) % Neut % (Auto) 68.2 (45-73) % Lymph % (Auto) 18.7 L (20-40) % [place] % (Auto) 12.1 H (2-11) % Eos % (Auto) 0.0 (0-4) % Baso % (Auto) 0.3 (0-2) % Lymph # (Auto) 1.4 (1.2-4.9) X10*3/uL [place] # (Auto) 0.9 (0.1-1.2) X10*3/uL Eos # (Auto) 0.0 (0.0-0.4) X10*3/uL Baso # (Auto) 0.0 (0.0-0.2) X10*3/uL Abs Immat Gran (auto) 0.05 H (0.00-0.03) X10*3/uL Absolute Neuts (auto) 5.0 (2.0-8.3) x10*3/uL Absolute Nucleated RBC 0.000 (0.0-0.012) X10*3/uL Nucleated RBC % (auto) 0.0 (0.0-0.2) /100WBC PT (10.0-13.1) SEC INR (0.9-1.1) Sodium 137 (135-145) mmol/L Potassium 4.2 D (3.3-5.1) mmol/L Chloride 98 (96-108) mmol/L Carbon Dioxide 25 (22-29) mmol/L Anion Gap 18 (12-20) BUN 27 H (9-16) mg/dL Creatinine 0.80 (0.5-1.4) mg/dL Estim Creat Clear Calc 63.4 Estimated GFR > 60 Random Glucose 80 (60-115) mg/dL Lactic Acid (0.5-2.0) mmol/L Calcium 9.7 D (8.4-10.2) mg/dL Total Bilirubin 0.2 (0.0-1.0) mg/dL AST 23 (5-31) U/L ALT 18 (0-31) U/L Alkaline Phosphatase 85 D (39-117) U/L Troponin I High Sens (<3.5-17.0) ng/L B-Natriuretic Peptide (<100) pg/mL Total Protein 6.8 (6.5-8.0) g/dL Albumin 3.5 (3.5-5.0) g/dL COVID-19 ([facility]) Negative (Negative) COVID-19 Clin Com See Note Influenza Type A (PCR) (Negative) Influenza Type B (PCR) (Negative) RSV RNA Qual (PCR) (Negative) SARS-CoV-2 RNA (RT-PCR) (Negative) 01/16/22 01/16/22 01/16/22 Range/Units 00:52 00:52 00:52 WBC (4.8-10.8) X10*3/uL RBC (4.20-5.50) X10*6/uL Hgb (12.0-16.0) g/dl Hct (37.0-47.0) % MCV (80.0-98.0) fL MCH (27.0-33.0) pg MCHC (31.0-35.0) g/dl RDW (11.0-16.0) % Plt Count (160-400) X10*3/uL MPV (9.4-12.3) fL Immature Gran % (Auto) (0.0-0.4) % Neut % (Auto) (45-73) % Lymph % (Auto) (20-40) % [place] % (Auto) (2-11) % Eos % (Auto) (0-4) % Baso % (Auto) (0-2) % Lymph # (Auto) (1.2-4.9) X10*3/uL [place] # (Auto) (0.1-1.2) X10*3/uL Eos # (Auto) (0.0-0.4) X10*3/uL Baso # (Auto) (0.0-0.2) X10*3/uL Abs Immat Gran (auto) (0.00-0.03) X10*3/uL Absolute Neuts (auto) (2.0-8.3) x10*3/uL Absolute Nucleated RBC (0.0-0.012) X10*3/uL Nucleated RBC % (auto) (0.0-0.2) /100WBC PT 21.0 H (10.0-13.1) SEC INR 1.8 H (0.9-1.1) Sodium (135-145) mmol/L Potassium (3.3-5.1) mmol/L Chloride (96-108) mmol/L Carbon Dioxide (22-29) mmol/L Anion Gap (12-20) BUN (9-16) mg/dL Creatinine (0.5-1.4) mg/dL Estim Creat Clear Calc Estimated GFR Random Glucose (60-115) mg/dL Lactic Acid 1.5 (0.5-2.0) mmol/L Calcium (8.4-10.2) mg/dL Total Bilirubin (0.0-1.0) mg/dL AST (5-31) U/L ALT (0-31) U/L Alkaline Phosphatase (39-117) U/L Troponin I High Sens 3.5 D (<3.5-17.0) ng/L B-Natriuretic Peptide (<100) pg/mL Total Protein (6.5-8.0) g/dL Albumin (3.5-5.0) g/dL COVID-19 ([facility]) (Negative) COVID-19 Clin Com Influenza Type A (PCR) (Negative) Influenza Type B (PCR) (Negative) RSV RNA Qual (PCR) (Negative) SARS-CoV-2 RNA (RT-PCR) (Negative) 01/16/22 01/16/22 Range/Units 00:52 00:52 WBC (4.8-10.8) X10*3/uL RBC (4.20-5.50) X10*6/uL Hgb (12.0-16.0) g/dl Hct (37.0-47.0) % MCV (80.0-98.0) fL MCH (27.0-33.0) pg MCHC (31.0-35.0) g/dl RDW (11.0-16.0) % Plt Count (160-400) X10*3/uL MPV (9.4-12.3) fL Immature Gran % (Auto) (0.0-0.4) % Neut % (Auto) (45-73) % Lymph % (Auto) (20-40) % [place] % (Auto) (2-11) % Eos % (Auto) (0-4) % Baso % (Auto) (0-2) % Lymph # (Auto) (1.2-4.9) X10*3/uL [place] # (Auto) (0.1-1.2) X10*3/uL Eos # (Auto) (0.0-0.4) X10*3/uL Baso # (Auto) (0.0-0.2) X10*3/uL Abs Immat Gran (auto) (0.00-0.03) X10*3/uL Absolute Neuts (auto) (2.0-8.3) x10*3/uL Absolute Nucleated RBC (0.0-0.012) X10*3/uL Nucleated RBC % (auto) (0.0-0.2) /100WBC PT (10.0-13.1) SEC INR (0.9-1.1) Sodium (135-145) mmol/L Potassium (3.3-5.1) mmol/L Chloride (96-108) mmol/L Carbon Dioxide (22-29) mmol/L Anion Gap (12-20) BUN (9-16) mg/dL Creatinine (0.5-1.4) mg/dL Estim Creat Clear Calc Estimated GFR Random Glucose (60-115) mg/dL Lactic Acid (0.5-2.0) mmol/L Calcium (8.4-10.2) mg/dL Total Bilirubin (0.0-1.0) mg/dL AST (5-31) U/L ALT (0-31) U/L Alkaline Phosphatase (39-117) U/L Troponin I High Sens (<3.5-17.0) ng/L B-Natriuretic Peptide 54 (<100) pg/mL Total Protein (6.5-8.0) g/dL Albumin (3.5-5.0) g/dL COVID-19 ([facility]) (Negative) COVID-19 Clin Com Influenza Type A (PCR) NEGATIVE (Negative) Influenza Type B (PCR) NEGATIVE (Negative) RSV RNA Qual (PCR) POSITIVE A (Negative) SARS-CoV-2 RNA (RT-PCR) NEGATIVE (Negative) Discharge Plan Discharge Clinical Impression: Respiratory syncytial virus (RSV) bronchiolitis Patient Disposition: Home, Self-Care Instructions: Respiratory Syncytial Virus (ED) Additional Instructions: continue nebulizing /inhaler every 4-6 hours as needed continue your prednisone cough syrup as advised humidified air report to the ER if worsening of shortness of breath Prescriptions: New benzonatate 200 mg capsule 200 mg PO TID PRN (Reason: cough) Qty: 30 0RF codeine-guaifenesin 10-100 mg/5 mL liquid 10 ml PO Q6H PRN (Reason: cough) Qty: 237 0RF No Action triamcinolone acetonide 0.1 % cream 1 appl topical BID 7 Days Qty: 80 0RF Rx Instructions: Apply to the affected area twice a day for a week cyclobenzaprine 10 mg tablet 10 mg PO TID Qty: 10 0RF hydrocodone-acetaminophen 5-325 mg tablet 1 tab PO BID PRN (Reason: Pain) ondansetron HCl 4 mg tablet 1 tab PO BEDTIME gabapentin 400 mg capsule 1 cap PO QID jnhzezotbg-gldpojxzjnzvd-dltv 50-325-40 mg tablet 1 tab PO DAILY PRN (Reason: Headache) Myrbetriq 25 mg tablet extended release 24 hr 1 tab PO DAILY metoprolol tartrate 25 mg Tablet 25 mg PO BID Qty: 60 0RF Protocol: Hold for SBP/HR < HOLD for SBP < : 90 HOLD for HR < : 60 Prempro 0.625-2.5 mg tablet 1 tab PO DAILY omeprazole 20 mg capsule,delayed release(DR/EC) 20 mg PO DAILY levothyroxine 50 mcg capsule 50 mcg PO DAILY Eliquis 5 mg tablet 5 mg PO BID atorvastatin 40 mg tablet 40 mg PO DAILY verapamil 120 mg capsule,ext rel. pellets 24 hr 120 mg PO DAILY celecoxib 200 mg capsule 200 mg PO DAILY Label Comments: Patient reports she is taking this every other day, she is aware of contraindication with Eliquis Interventions: ED Discharge Assessment Last Done: 01/16/22 03:39 Discharge Date/Time: 01/16/22 03:47
--- NOTE | 2022-01-16 00:45 | ECG_ITS ---
Test Reason : SOB Blood Pressure : / mmHG Vent. Rate : 099 BPM Atrial Rate : 256 BPM P-R Int : 000 ms QRS Dur : 088 ms QT Int : 364 ms P-R-T Axes : 000 -07 020 degrees QTc Int : 467 ms Poor data quality Atrial fibrillation RSR' or QR pattern in V1 suggests right ventricular conduction delay Nonspecific T wave abnormality Abnormal ECG When compared with ECG of 14-MAY-2021 09:08, Nonspecific T wave abnormality no longer evident in Inferior leads T wave inversion no longer evident in Anterior leads Heart rate has decreased Referred By: Percy Hollingsworth Electronically Signed By:MARIA ELENA SANCHEZ MD
[2022-01-16 00:49] LABS: COVID-19 Test Negative (Negative)
[2022-01-16] MEDS: Albuterol Sulfate 2.5 MG, Albuterol/Iprat 2.5/0.5MG 3 ML 3 ML INHALE (01:00)
[2022-01-16 01:04] VITALS: PULSE 85; RESP 24; O2SAT 97
[2022-01-16 01:11] LABS: Alanine Aminotransferase 18 U/L (0-31); Albumin Level 3.5 g/dL (3.5-5.0); Alkaline Phosphatase 85 U/L (39-117); Anion Gap 18 (12-20); Aspartate Amino Transferase 23 U/L (5-31); Bilirubin Total 0.2 mg/dL (0.0-1.0); Blood Urea Nitrogen 27 mg/dL (9-16); Calcium 9.7 mg/dL (8.4-10.2); Carbon Dioxide 25 mmol/L (22-29); Chloride 98 mmol/L (96-108); Creatinine Clr Calc Pharmacy 63.4; Estimated Glomerular Filt Rate > 60; Glucose Random 80 mg/dL (60-115); Potassium 4.2 mmol/L (3.3-5.1); Sodium 137 mmol/L (135-145); Total Protein 6.8 g/dL (6.5-8.0)
--- NOTE | 2022-01-16 01:19 | PC.NURSE ---
Hx afib on eliquis. Currently afib on telemetry, 90s.
[2022-01-16] MEDS: guaiFEN/Codeine SF 200/20/10ML 10 ML LIQUID 5 ML PO (01:20)
--- NOTE | 2022-01-16 01:24 | PC.NURSE ---
pt placed on compliance monitor.
[2022-01-16] MEDS: cefTRIAXone sodium 1 GM in 0.9 % Sodium Chloride 50 ML IV (01:26)
[2022-01-16 01:29] LABS: INTERNATIONAL NORM RATIO 1.8 (0.9-1.1)
[2022-01-16 01:31] LABS: Lactic Acid 1.5 mmol/L (0.5-2.0)
[2022-01-16 01:36] LABS: Influenza A PCR NEGATIVE (Negative); Influenza B PCR NEGATIVE (Negative); Resp Syncy Virus RNA Qual PCR POSITIVE (Negative); SARS COV2 PCR INHOUSE NEGATIVE (Negative)
[2022-01-16 01:40] LABS: B Type Natriuretic Peptide 54 pg/mL (<100); Troponin-I High Sensitivity 3.5 ng/L (<3.5-17.0)
[2022-01-16 02:33] VITALS: BP 141/75; PULSE 103; RESP 19; TEMP 36.9; O2SAT 95
[2022-01-16] MEDS: dexAMETHasone sod phosphate 10 MG/ML VIAL IVPUSH (02:44)
[2022-01-16] MEDS: Benzonatate 100 MG CAPSULE 200 MG PO (02:49)
== END 2022-01-16 03:47 | disposition home or self-care (01) ==
PROVIDERS: Emergency Provider Internal Medicine
DX: J21.0 Acute bronchiolitis due to respiratory syncytial virus (principal); R05.9 Cough, unspecified; R06.02 Shortness of breath; Z20.822 Contact with and (suspected) exposure to COVID-19; Z79.899 Other long term (current) drug therapy
CPT/HCPCS: 0241U; 36415; 71046; 80053; 83605; 83880; 84484; 85025; 85610; 87040; 87635; 93005; 94640; 96365; 96375; 99285; J0696; J1100

== ENCOUNTER 2022-02-17 11:18 | Outpatient (REF) | payer MEDICARE, SELFPAY ==
[2022-02-17 12:05] LABS: Appearance Urine Cloudy; Color Urine Yellow; Glucose Urine UA Negative (Negative); Leukocyte Esterase Urine Large (3+) (Negative); Nitrite Urine Negative (Negative); PH 6.5 (5.0-9.0); UMIC TRIGGER UA YES; Urine Blood Moderate (2+) (Negative); Urine Ketones Negative (Negative); Urine Protein 30 (1+) mg/dL (Neg-Trace)
[2022-02-17 12:12] LABS: Bacteria Urine 4+ (None Seen); Hyaline Casts Urine 0-2 /LPF (0-2); WBC Urine >50 /HPF (0-5)
== END 2022-02-17 11:19 | disposition home or self-care (01) ==
LOC: HO.LNP 11:18
PROVIDERS: Visit Provider Internal Medicine
DX: N39.0 Urinary tract infection, site not specified (principal)
CPT/HCPCS: 81001; 87086

== ENCOUNTER 2022-02-21 15:50 | Outpatient (REF) | payer MEDICARE, SELFPAY ==
[2022-02-21 16:07] LABS: Appearance Urine Turbid; Color Urine Yellow; Glucose Urine UA Negative (Negative); Leukocyte Esterase Urine Large (3+) (Negative); Nitrite Urine Positive (Negative); Specific Gravity - Urine 1.015 (1.005-1.025); UMIC TRIGGER UA YES; Urine Blood Small (1+) (Negative); Urine Ketones Negative (Negative); Urine Protein Trace mg/dL (Neg-Trace)
[2022-02-21 16:29] LABS: Bacteria Urine 4+ (None Seen); Hyaline Casts Urine 0-2 /LPF (0-2); RBC Urine 0-2 /HPF (0-2); Squamous Epithelial Cell Urine 0-2 /HPF (0-2); WBC Urine >50 /HPF (0-5)
== END 2022-02-21 15:51 | disposition home or self-care (01) ==
LOC: HO.LNP 15:50
PROVIDERS: Visit Provider Internal Medicine
DX: R31.9 Hematuria, unspecified (principal)
CPT/HCPCS: 81001; 87086; 87088; 87186

== ENCOUNTER 2022-03-06 16:22 | Outpatient (REF) | payer MEDICARE, SELFPAY ==
[2022-03-06 16:33] LABS: Appearance Urine Cloudy; Color Urine Yellow; Glucose Urine UA Negative (Negative); Leukocyte Esterase Urine Moderate (2+) (Negative); Nitrite Urine Positive (Negative); UMIC TRIGGER UA YES; Urine Blood Negative (Negative); Urine Ketones Negative (Negative); Urine Protein Negative (Neg-Trace)
[2022-03-06 16:35] LABS: Bacteria Urine 4+ (None Seen); Hyaline Casts Urine 0-2 /LPF (0-2); WBC Urine >50 /HPF (0-5)
[2022-03-06 16:45] LABS: RBC Urine 0-2 /HPF (0-2)
== END 2022-03-06 16:23 | disposition home or self-care (01) ==
LOC: HO.LNP 16:22
PROVIDERS: Visit Provider Internal Medicine
DX: R82.90 Unspecified abnormal findings in urine (principal)
CPT/HCPCS: 81001; 87086; 87088; 87186

== ENCOUNTER 2022-04-08 10:46 | Outpatient (REF) | payer MEDICARE, SELFPAY ==
[2022-04-08 10:49] LABS: MANUAL DIFF FLAG NO
[2022-04-08 10:54] LABS: Basophils Absolute Auto 0.1 X10*3/uL (0.0-0.2); Basophils Percent Auto 0.9 % (0-2); Eosinophils Absolute Auto 0.4 X10*3/uL (0.0-0.4); Eosinophils Percent Auto 5.9 % (0-4); Hematocrit 33.6 % (37.0-47.0); Hemoglobin 9.8 g/dl (12.0-16.0); Imm Gran Abs Auto 0.02 X10*3/uL (0.00-0.03); Imm Gran Pct Auto 0.3 % (0.0-0.4); Lymphocytes Absolute Auto 2.3 X10*3/uL (1.2-4.9); Lymphocytes Percent Auto 35.6 % (20-40); Mean Corpuscular HGB Conc 29.2 g/dl (31.0-35.0); Mean Corpuscular Hemoglobin 23.6 pg (27.0-33.0); Mean Corpuscular Volume 80.8 fL (80.0-98.0); Mean Platelet Volume 10.9 fL (9.4-12.3); Monocytes Absolute Auto 0.8 X10*3/uL (0.1-1.2); Neutrophils Absolute Auto 2.9 x10*3/uL (2.0-8.3); Neutrophils Percent Auto 44.3 % (45-73); Platelet Count 274 X10*3/uL (160-400); Red Blood Count 4.16 X10*6/uL (4.20-5.50); Red Cell Distribution Width 16.8 % (11.0-16.0); White Blood Count 6.5 X10*3/uL (4.8-10.8)
[2022-04-08 12:19] LABS: Alanine Aminotransferase 15 U/L (0-31); Albumin Level 3.6 g/dL (3.5-5.0); Alkaline Phosphatase 86 U/L (39-117); Anion Gap 13 (12-20); Aspartate Amino Transferase 25 U/L (5-31); Bilirubin Total 0.5 mg/dL (0.0-1.0); Blood Urea Nitrogen 20 mg/dL (9-16); Calcium 9.8 mg/dL (8.4-10.2); Carbon Dioxide 29 mmol/L (22-29); Chloride 102 mmol/L (96-108); Cholesterol 152 mg/dL; Estimated Glomerular Filt Rate 58; Glucose Fasting 88 mg/dL (60-99); HDL Cholesterol 70 mg/dL; LDL Cholesterol Calculated 60 mg/dl; Potassium 4.2 mmol/L (3.3-5.1); Sodium 140 mmol/L (135-145); Total Protein 6.7 g/dL (6.5-8.0); Triglycerides 110 mg/dL
[2022-04-08 12:38] LABS: TSH reflex Free T4 1.96 uIU/mL (0.32-4.0)
== END 2022-04-08 10:47 | disposition home or self-care (01) ==
LOC: HO.LNP 10:46
PROVIDERS: Visit Provider Internal Medicine
DX: E03.9 Hypothyroidism, unspecified (principal); I10 Essential (primary) hypertension; D72.820 Lymphocytosis (symptomatic); E78.00 Pure hypercholesterolemia, unspecified
CPT/HCPCS: 80053; 80061; 84443; 85025

== ENCOUNTER 2022-04-11 15:50 | Outpatient (REF) | payer MEDICARE, SELFPAY ==
[2022-04-11 16:16] LABS: Appearance Urine Clear; Color Urine Yellow; Glucose Urine UA Negative (Negative); Leukocyte Esterase Urine Moderate (2+) (Negative); Nitrite Urine Positive (Negative); PH 6.5 (5.0-9.0); Specific Gravity - Urine 1.015 (1.005-1.025); UMIC TRIGGER UACC YES; Urine Blood Negative (Negative); Urine Ketones Negative (Negative); Urine Protein Negative (Neg-Trace)
[2022-04-11 16:21] LABS: Bacteria Urine 4+ (None Seen); Hyaline Casts Urine 0-2 /LPF (0-2); RBC Urine 0-2 /HPF (0-2); Squamous Epithelial Cell Urine 0-2 /HPF (0-2); UACC Culture Trigger YES; WBC Urine 21-50 /HPF (0-5)
[2022-04-11 16:32] LABS: Iron 24 mcg/dL (30-160); Percent Iron Saturation 7 % (15-50); Total Iron Binding Capacity 356 mcg/dL (228-428); Unsaturated Iron Binding 332 ug/dL
== END 2022-04-11 15:51 | disposition home or self-care (01) ==
LOC: HO.LNP 15:50
PROVIDERS: Visit Provider Internal Medicine
DX: D50.0 Iron deficiency anemia secondary to blood loss (chronic) (principal); I10 Essential (primary) hypertension
CPT/HCPCS: 81001; 83540; 87086; 87088; 87186

== ENCOUNTER 2022-04-15 11:45 | Outpatient (REF) | payer MEDICARE, SELFPAY ==
[2022-04-15 12:12] LABS: Appearance Urine Turbid; Color Urine Yellow; Glucose Urine UA Negative (Negative); Leukocyte Esterase Urine Moderate (2+) (Negative); Nitrite Urine Positive (Negative); PH 6.5 (5.0-9.0); Specific Gravity - Urine 1.025 (1.005-1.025); UMIC TRIGGER UACC YES; Urine Blood Negative (Negative); Urine Ketones Trace mg/dL (Negative); Urine Protein Trace mg/dL (Neg-Trace)
[2022-04-15 12:45] LABS: Bacteria Urine 4+ (None Seen); Hyaline Casts Urine 0-2 /LPF (0-2); Other Crystals Urine Present; RBC Urine >20 /HPF (0-2); UACC Culture Trigger YES; WBC Urine 0-5 /HPF (0-5)
== END 2022-04-15 11:46 | disposition home or self-care (01) ==
LOC: HO.LNP 11:45
PROVIDERS: Visit Provider Internal Medicine
DX: N39.0 Urinary tract infection, site not specified (principal)
CPT/HCPCS: 81001; 81003; 87086

== ENCOUNTER 2022-05-15 10:51 | Outpatient (REF) | payer MEDICARE, SELFPAY ==
[2022-05-15 11:14] LABS: Appearance Urine Clear; Color Urine Yellow; Glucose Urine UA Negative (Negative); Leukocyte Esterase Urine Trace (Negative); Nitrite Urine Positive (Negative); UMIC TRIGGER UACC YES; Urine Blood Negative (Negative); Urine Ketones Negative (Negative); Urine Protein Negative (Neg-Trace)
[2022-05-15 11:23] LABS: Bacteria Urine 4+ (None Seen); Hyaline Casts Urine 0-2 /LPF (0-2); Squamous Epithelial Cell Urine 0-2 /HPF (0-2); UACC Culture Trigger YES; WBC Urine 0-5 /HPF (0-5)
== END 2022-05-15 10:52 | disposition home or self-care (01) ==
LOC: HO.LNP 10:51
PROVIDERS: Visit Provider Internal Medicine
DX: R31.9 Hematuria, unspecified (principal)
CPT/HCPCS: 81001; 87086; 87088; 87186

== ENCOUNTER 2022-06-05 16:19 | Outpatient (REF) | payer MEDICARE, SELFPAY ==
[2022-06-05 16:39] LABS: Appearance Urine Clear; Color Urine Yellow; Glucose Urine UA Negative (Negative); Leukocyte Esterase Urine Trace (Negative); Nitrite Urine Negative (Negative); Specific Gravity - Urine 1.015 (1.005-1.025); UMIC TRIGGER UACC YES; Urine Blood Negative (Negative); Urine Ketones Negative (Negative); Urine Protein Negative (Neg-Trace)
[2022-06-05 16:41] LABS: Bacteria Urine None Seen (None Seen); Hyaline Casts Urine 0-2 /LPF (0-2); RBC Urine 0-2 /HPF (0-2); Squamous Epithelial Cell Urine 0-2 /HPF (0-2); WBC Urine 0-5 /HPF (0-5)
== END 2022-06-05 16:20 | disposition home or self-care (01) ==
LOC: HO.LNP 16:19
PROVIDERS: Visit Provider Internal Medicine
DX: N39.0 Urinary tract infection, site not specified (principal)
CPT/HCPCS: 81001

== ENCOUNTER 2022-06-30 14:53 | Outpatient (REF) | payer MEDICARE, SELFPAY ==
[2022-06-30 15:11] LABS: MANUAL DIFF FLAG NO
[2022-06-30 15:30] LABS: Basophils Percent Auto 0.8 % (0-2); Eosinophils Absolute Auto 0.3 X10*3/uL (0.0-0.4); Eosinophils Percent Auto 5.3 % (0-4); Hematocrit 38.2 % (37.0-47.0); Hemoglobin 11.9 g/dl (12.0-16.0); Imm Gran Abs Auto 0.01 X10*3/uL (0.00-0.03); Imm Gran Pct Auto 0.2 % (0.0-0.4); Lymphocytes Absolute Auto 1.5 X10*3/uL (1.2-4.9); Lymphocytes Percent Auto 27.9 % (20-40); Mean Corpuscular HGB Conc 31.2 g/dl (31.0-35.0); Mean Corpuscular Hemoglobin 27.7 pg (27.0-33.0); Mean Platelet Volume 9.8 fL (9.4-12.3); Monocytes Absolute Auto 0.5 X10*3/uL (0.1-1.2); Monocytes Percent Auto 10.2 % (2-11); Neutrophils Absolute Auto 2.9 x10*3/uL (2.0-8.3); Neutrophils Percent Auto 55.6 % (45-73); Platelet Count 196 X10*3/uL (160-400); Red Blood Count 4.29 X10*6/uL (4.20-5.50); Red Cell Distribution Width 18.1 % (11.0-16.0); White Blood Count 5.3 X10*3/uL (4.8-10.8)
[2022-06-30 16:05] LABS: Iron 80 mcg/dL (30-160); Percent Iron Saturation 28 % (15-50); Total Iron Binding Capacity 283 mcg/dL (228-428); Unsaturated Iron Binding 203 ug/dL
[2022-06-30 16:20] LABS: Ferritin 27 ng/mL (10-250)
== END 2022-06-30 14:54 | disposition home or self-care (01) ==
LOC: HO.LAB 14:53
PROVIDERS: PCP Internal Medicine; Visit Provider Internal Medicine
DX: D50.9 Iron deficiency anemia, unspecified (principal)
CPT/HCPCS: 36415; 82728; 83540; 85025

== ENCOUNTER 2022-07-11 21:58 | Emergency (ER) | payer MEDICARE, SELFPAY ==
--- NOTE | ~2022-07-11 | CT_ITS ---
EXAMINATION: CT ANGIOGRAM OF THE CHEST WITH AND WITHOUT CONTRAST (CT PULMONARY ANGIOGRAM FOR PE) CLINICAL INFORMATION: Reason for Exam L CP, sob, elevated dimer COMPARISON: 04/05/2011 TECHNIQUE: Prior to contrast administration, noncontrast localization images were obtained. Subsequently, multidetector volumetric imaging was performed from the thoracic inlet to below the diaphragms following the administration of 65 mL Omnipaque 350 intravenous contrast. No contrast reaction reported Sagittal, coronal, and MIP oblique sagittal reformatted images were obtained on the CT workstation, uploaded to PACS, and reviewed. This CT examination was performed using dose optimization techniques as appropriate, variously including the following: *Automated exposure control *Adjustment of mA and/or kV according to patient size (this includes techniques or standardized protocols for targeted exams where dose is matched to indication/reason for exam; i.e. extremities or head) *Use of iterative reconstruction technique Total exam dose-length product 344 mGy-cm FINDINGS: QUALITY OF STUDY/CONTRAST BOLUS: Satisfactory. PULMONARY ARTERIES: No filling defects are seen in the main, lobar, or segmental pulmonary arteries to suggest the presence of pulmonary emboli. THORACIC AORTA: Ascending aorta appears dilated to approximately 4.1 cm. No evidence of aortic dissection. Mild atherosclerotic calcification. 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 There is redemonstrated elevation of the right hemidiaphragm with complete right middle lobe collapse and partial atelectasis of the right lower lobe. PLEURA: No pleural effusion or pneumothorax. MEDIASTINUM: Limited visualized thyroid gland is grossly unremarkable. There are subcentimeter mediastinal lymph nodes within the range of normal variation. Cardiac size is within normal limits; no pericardial effusion. CORONARY ARTERY CALCIFICATION: Calcification noted along the left anterior descending artery. CHEST WALL/AXILLA: No axillary or internal mammary lymphadenopathy. OSSEOUS STRUCTURES: Status post bilateral shoulder arthroplasties. UPPER ABDOMEN: Patient is status post cholecystectomy. There is some reflux of contrast into the hepatic veins to which can be seen with elevated right heart pressures. CT/CT angio chest PE protocol IMPRESSION: 1. No pulmonary embolus identified. 2. Reflux of contrast into the hepatic veins to which can be seen with elevated right heart pressures. 3. Dilated ascending aorta to approximately 4.1 cm. 4. Redemonstrated elevation of the right hemidiaphragm with right middle lobe collapse and partial atelectasis of the right lower lobe. VTE: negative.
--- NOTE | 2022-07-11 22:00 | ECG_ITS ---
Test Reason : chest pain Blood Pressure : / mmHG Vent. Rate : 085 BPM Atrial Rate : 000 BPM P-R Int : 000 ms QRS Dur : 090 ms QT Int : 372 ms P-R-T Axes : 000 -09 038 degrees QTc Int : 442 ms Atrial fibrillation Nonspecific T wave abnormality Abnormal ECG When compared with ECG of 16-JAN-2022 01:15, No significant change was found Referred By: Generic ED Physician Electronically Signed By:ANILA BATES
[2022-07-11 22:18] VITALS: BP 148/99; PULSE 93; RESP 20; TEMP 36.6; O2SAT 95; BMI 26.6
[2022-07-11 22:43] VITALS: BP 160/99; PULSE 87; RESP 17; TEMP 36.4; O2SAT 95
--- NOTE | 2022-07-11 22:54 | ED.CHESTPAIN ---
HPI - Chest Pain General Chief Complaint: Chest Pain Stated Complaint: rib and abd pain Time Seen by Provider: 07/11/22 22:27 Source: patient Mode of arrival: ambulatory Limitations: no limitations History of Present Illness HPI narrative: Patient comes to the emergency room complaining of sharp left-sided chest pain that started 2 hours prior to arrival. Patient states that she has mild shortness of breath. Patient states that after she felt this sharp pain, she started becoming anxious, and feeling palpitations. Patient known to have atrial fibrillation, takes Eliquis and states that she is very compliant with her medications and never misses doses. At this time, patient states that she start having sharp pain but is not as bad as earlier today. Shortness of breath at this time is minimal. Patient denies any trauma to the area. Related Data Home Medications Medication Instructions Recorded Confirmed apixaban 5 mg tablet (Eliquis) 5 mg PO BID 03/27/20 12/17/21 atorvastatin 40 mg tablet 40 mg PO DAILY 03/27/20 12/17/21 conj estrogen-medroxyprogesterone 1 tab PO DAILY 03/27/20 12/17/21 0.625 mg-2.5 mg tablet (Prempro) levothyroxine 50 mcg capsule 50 mcg PO DAILY 03/27/20 12/17/21 omeprazole 20 mg capsule,delayed 20 mg PO DAILY 03/27/20 12/17/21 release verapamil 120 mg 24 hr 120 mg PO DAILY 03/27/20 12/17/21 capsule,extended release xypzjefipx-euaymhgvguavf-vpnsjnmk 1 tab PO DAILY PRN Headache 05/13/21 12/17/21 50 mg-325 mg-40 mg tablet gabapentin 400 mg capsule 1 cap PO QID 05/13/21 12/17/21 hydrocodone 5 mg-acetaminophen 325 1 tab PO BID PRN Pain 05/13/21 12/17/21 mg tablet mirabegron 25 mg tablet,extended 1 tab PO DAILY 05/13/21 12/17/21 release 24 hr (Myrbetriq) ondansetron HCl 4 mg tablet 1 tab PO BEDTIME 05/13/21 12/17/21 celecoxib 200 mg capsule 200 mg PO DAILY 12/17/21 12/17/21 Previous Rx's Medication Instructions Recorded cyclobenzaprine 10 mg tablet 10 mg PO TID #10 tabs 02/08/21 metoprolol tartrate 25 mg tablet 25 mg PO BID #60 tabs 05/18/21 triamcinolone acetonide 0.1 % 1 appl topical BID 1 week #80 grams 10/31/21 topical cream benzonatate 200 mg capsule 200 mg PO TID PRN cough #30 caps 01/16/22 codeine 10 mg-guaifenesin 100 mg/5 10 ml PO Q6H PRN cough #237 mL 01/16/22 mL oral liquid Allergies Allergy/AdvReac Type Severity Reaction Status Date / Time No Known Allergies Allergy Mild N/A Verified 07/11/22 22:21 Review of Systems Review of Systems: Constitutional : No Weight loss, No Fever, No Chills, No Night Sweats, No Fatigue, No Malaise ENT/Mouth : No Hearing loss, No Ear Pain, No Nasal Congestion, No Sinus Pain, No Hoarseness, No sore throat, No Rhinorrhea, No Swallowing Difficulty Eyes: No Eye Pain, No Swelling, No Redness, No Foreign Body, No Discharge, No Vision Changes Cardiovascular : Complaining of left sharp chest pain on the left, No SOB, No Dyspnea on Exertion, No Orthopnea, No Edema, complaining of intermittent Palpitations Respiratory : No Cough, No Sputum, No Wheezing, No Smoke Exposure, complaining of mild Dyspnea Gastrointestinal : No Nausea, No Vomiting, No Diarrhea, No Constipation, No abdominal Pain, No Hematochezia, No Melena Genitourinary : no irregular bleeding, No Dysuria, No Urinary Frequency, No Hematuria, No Urinary Incontinence, No Urgency, No Flank Pain, No Urinary Flow Changes, No Hesitancy Musculoskeletal : No joint pain, No Myalgias, No Joint Swelling Skin : No Skin Lesions, No rash Neuro : No Weakness, No Numbness, No Paresthesias, No Loss of Consciousness, No Dizziness, No Headache Psych : Complaining of anxiety,, No Depression, No SI/HI/AH/VH, No Social Issues, Heme/Lymph: No Bruising, No Bleeding,No Lymphadenopathy Endocrine : No Polyuria, No Polydipsia, No Temperature Intolerance [facility] Past Medical History Medical History Anxiety Arthritis Asthma Carpal tunnel syndrome Chronic pain GERD (gastroesophageal reflux disease) HTN (hypertension) Hypothyroidism Obesity Persistent atrial fibrillation Primary osteoarthritis involving multiple joints Stroke Surgical History History of bladder surgery History of left shoulder replacement History of right shoulder replacement History of tonsillectomy Hx of cholecystectomy S/P foot surgery, right S/P panniculectomy Family History Family History Father CVD (cardiovascular disease) Diabetes Mother CVD (cardiovascular disease) HTN (hypertension) Social History Social History Household Members: Family Housing: House Do you presently have visiting nurse or other home services: No Unable to assess alcohol history related to: Unknown Alcohol intake: never Patient Tobacco Use Status: Tobacco use Unknown Smoked in Last 30 Days: No e-Cigarette/Vaping Use: Never Used Use of substances other than those prescribed or required for medical reasons: No Advance Directives: No Advance Directives Information Provided: Yes service: No Current occupational status: retired Physical Exam Vital Signs: Vital Signs: Last Vital Signs Temp 97.5 F 07/11/22 23:47 Pulse 84 07/11/22 23:47 Resp 14 07/11/22 23:47 BP 161/106 H 07/11/22 23:47 Pulse Ox 12 L 07/11/22 23:47 O2 Del Method Room Air 07/11/22 23:47 BMI result Body Mass Index 26.6 Const: Other: Appearance: Alert. Oriented X3. No acute distress. Eyes: Pupils equal, round and reactive to light. ENT: Pharynx normal. Neck: Normal inspection. Neck supple. No lymph nodes noted. No crepitus CVS: Irregularly irregular, heart rate control in the 90s Pulses normal. Normal S1 and S2. Reproducible pain to palpation on the ribs of the chest and lateral thorax the left Respiratory: No respiratory distress. Breath sounds normal. No Wheezing. No rales Abdomen: Soft and nontender. No rigidity. No distention. Skin: Skin warm and dry. Normal skin color. Normal skin turgor. Extremities: No lower extremity edema. No Lacerations. No Rash Neuro: Oriented X 3. No motor deficit. No sensory deficit. Moving all extremities. No slurred speech. CN 2 through 12 grossly intact Psych: calm, cooperative, normal affect Course Course Course Narrative: -of patient's labs and imaging pending. -I discussed with the patient that she will need a 2nd troponin approximately 3 hours after the 1st troponin has been obtained -also, discussed with the patient depending on her D-dimer, patient may need to be scanned. -patient agreeable to plan. Medications Administered Discontinued Medications Generic Name Dose Route Start Last Admin Trade Name Odilia PRN Reason Stop Dose Admin Iohexol 60 ml 07/12/22 00:47 07/12/22 00:48 Iohexol 350 Mg/Ml 100 Ml Infus..Btl IV 07/12/22 00:48 60 ml ONCE ONE Administration Medical Decision Making Medical Decision Making [facility] Narrative: - EKG my interpretation: Atrial fibrillation, heart rate 85, no ST segment depression or elevation, no T-wave inversion, QTC 442 -patient's troponin negative -interpretation of EKG: Atrial fibrillation (chronic), heart rate 85 and a cystectomy depression or elevation, no T-wave inversion, QTC 442 -patient's D-dimer is bumped, 459, we will go ahead and ordered a CTA scan for pulmonary embolism rule out -patient states she has a moderate headache, patient requesting Fioricet which she takes at home. Given 1 dose p.o. -CTA is negative for pulmonary embolism. Patient has a 4.1 cm ascending aortic aneurysm which patient is already aware. -troponin 2. Pending. Patient feeling better. If troponin is negative, patient may be discharged home. -sign-out given to Dr. Crump Differential Diagnosis Differential Diagnoses: The differential diagnosis associated with the presentation includes (Anxiety, costochondritis, pleurisy, PE, ACS) Lab Data [facility] Lab Attestation statement: I reviewed the patient's lab results. 07/11/22 22:48 07/11/22 22:48 Labs: Lab Results 07/11/22 07/11/22 07/11/22 Range/Units 22:48 22:48 22:48 WBC 5.6 (4.8-10.8) X10*3/uL RBC 4.64 (4.20-5.50) X10*6/uL Hgb 13.0 (12.0-16.0) g/dl Hct 40.2 (37.0-47.0) % MCV 86.6 (80.0-98.0) fL MCH 28.0 (27.0-33.0) pg MCHC 32.3 (31.0-35.0) g/dl RDW 16.4 H (11.0-16.0) % Plt Count 219 (160-400) X10*3/uL MPV 9.5 (9.4-12.3) fL Immature Gran % (Auto) 0.2 (0.0-0.4) % Neut % (Auto) 51.5 (45-73) % Lymph % (Auto) 30.5 (20-40) % [place] % (Auto) 11.7 H (2-11) % Eos % (Auto) 5.0 H (0-4) % Baso % (Auto) 1.1 (0-2) % Lymph # (Auto) 1.7 (1.2-4.9) X10*3/uL [place] # (Auto) 0.7 (0.1-1.2) X10*3/uL Eos # (Auto) 0.3 (0.0-0.4) X10*3/uL Baso # (Auto) 0.1 (0.0-0.2) X10*3/uL Abs Immat Gran (auto) 0.01 (0.00-0.03) X10*3/uL Absolute Neuts (auto) 2.9 (2.0-8.3) x10*3/uL Absolute Nucleated RBC 0.000 (0.0-0.012) X10*3/uL Nucleated RBC % (auto) 0.0 (0.0-0.2) /100WBC D-Dimer High Sensitivty NG/ML Sodium 140 (135-145) mmol/L Potassium 3.6 (3.3-5.1) mmol/L Chloride 102 (96-108) mmol/L Carbon Dioxide 29 (22-29) mmol/L Anion Gap 13 (12-20) BUN 17 H (9-16) mg/dL Creatinine 0.79 (0.5-1.4) mg/dL Estim Creat Clear Calc 62.3 Estimated GFR > 60 Random Glucose 99 (60-115) mg/dL Calcium 9.7 (8.4-10.2) mg/dL Troponin I High Sens 3.2 (<3.5-17.0) ng/L 07/11/22 Range/Units 23:18 WBC (4.8-10.8) X10*3/uL RBC (4.20-5.50) X10*6/uL Hgb (12.0-16.0) g/dl Hct (37.0-47.0) % MCV (80.0-98.0) fL MCH (27.0-33.0) pg MCHC (31.0-35.0) g/dl RDW (11.0-16.0) % Plt Count (160-400) X10*3/uL MPV (9.4-12.3) fL Immature Gran % (Auto) (0.0-0.4) % Neut % (Auto) (45-73) % Lymph % (Auto) (20-40) % [place] % (Auto) (2-11) % Eos % (Auto) (0-4) % Baso % (Auto) (0-2) % Lymph # (Auto) (1.2-4.9) X10*3/uL [place] # (Auto) (0.1-1.2) X10*3/uL Eos # (Auto) (0.0-0.4) X10*3/uL Baso # (Auto) (0.0-0.2) X10*3/uL Abs Immat Gran (auto) (0.00-0.03) X10*3/uL Absolute Neuts (auto) (2.0-8.3) x10*3/uL Absolute Nucleated RBC (0.0-0.012) X10*3/uL Nucleated RBC % (auto) (0.0-0.2) /100WBC D-Dimer High Sensitivty 459 NG/ML Sodium (135-145) mmol/L Potassium (3.3-5.1) mmol/L Chloride (96-108) mmol/L Carbon Dioxide (22-29) mmol/L Anion Gap (12-20) BUN (9-16) mg/dL Creatinine (0.5-1.4) mg/dL Estim Creat Clear Calc Estimated GFR Random Glucose (60-115) mg/dL Calcium (8.4-10.2) mg/dL Troponin I High Sens (<3.5-17.0) ng/L Independent Interpretation I performed an independent interpretation of an: CT Scan (My interpretation of CTA: No feeling defects, pulmonary embolism not suspected) Radiology Impression Discussion of test interpretation with radiology: I have reviewed the radiologist's reading. Radiologist Impression: FINDINGS: QUALITY OF STUDY/CONTRAST BOLUS: Satisfactory. PULMONARY ARTERIES: No filling defects are seen in the main, lobar, or segmental pulmonary arteries to suggest the presence of pulmonary emboli.? THORACIC AORTA: Ascending aorta appears dilated to approximately 4.1 cm. No evidence of aortic dissection. Mild atherosclerotic calcification. 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 There is redemonstrated elevation of the right hemidiaphragm with complete right middle lobe collapse and partial atelectasis of the right lower lobe. PLEURA: No pleural effusion or pneumothorax. MEDIASTINUM: Limited visualized thyroid gland is grossly unremarkable. There are subcentimeter mediastinal lymph nodes within the range of normal variation. Cardiac size is within normal limits; no pericardial effusion. CORONARY ARTERY CALCIFICATION: Calcification noted along the left anterior descending artery. CHEST WALL/AXILLA: No axillary or internal mammary lymphadenopathy. OSSEOUS STRUCTURES: Status post bilateral shoulder arthroplasties.? UPPER ABDOMEN: Patient is status post cholecystectomy. There is some reflux of contrast into the hepatic veins to which can be seen with elevated right heart pressures. CT/CT angio chest PE protocol IMPRESSION: 1.? No pulmonary embolus identified. 2.? Reflux of contrast into the hepatic veins to which can be seen with elevated right heart pressures. 3.? Dilated ascending aorta to approximately 4.1 cm. 4.? Redemonstrated elevation of the right hemidiaphragm with right middle lobe collapse and partial atelectasis of the right lower lobe. ? VTE: negative. ? Discharge Plan Discharge Clinical Impression: Atypical chest pain, Headache Patient Disposition: Still a Patient Instructions: Chest Pain (ED) Additional Instructions: Please follow-up with your primary care physician tomorrow. If you have any worsening or new symptoms, please return to the emergency room or call 911 Prescriptions: No Action triamcinolone acetonide 0.1 % cream 1 appl topical BID 7 Days Qty: 80 0RF Rx Instructions: Apply to the affected area twice a day for a week cyclobenzaprine 10 mg tablet 10 mg PO TID Qty: 10 0RF benzonatate 200 mg capsule 200 mg PO TID PRN (Reason: cough) Qty: 30 0RF codeine-guaifenesin 10-100 mg/5 mL liquid 10 ml PO Q6H PRN (Reason: cough) Qty: 237 0RF hydrocodone-acetaminophen 5-325 mg tablet 1 tab PO BID PRN (Reason: Pain) ondansetron HCl 4 mg tablet 1 tab PO BEDTIME gabapentin 400 mg capsule 1 cap PO QID lfrglwdslb-kbkwvfnlcsuyn-goxf 50-325-40 mg tablet 1 tab PO DAILY PRN (Reason: Headache) Myrbetriq 25 mg tablet extended release 24 hr 1 tab PO DAILY metoprolol tartrate 25 mg Tablet 25 mg PO BID Qty: 60 0RF Protocol: Hold for SBP/HR < HOLD for SBP < : 90 HOLD for HR < : 60 Prempro 0.625-2.5 mg tablet 1 tab PO DAILY omeprazole 20 mg capsule,delayed release(DR/EC) 20 mg PO DAILY levothyroxine 50 mcg capsule 50 mcg PO DAILY Eliquis 5 mg tablet 5 mg PO BID atorvastatin 40 mg tablet 40 mg PO DAILY verapamil 120 mg capsule,ext rel. pellets 24 hr 120 mg PO DAILY celecoxib 200 mg capsule 200 mg PO DAILY Patient Comments: Patient reports she is taking this every other day, she is aware of contraindication with Eliquis
[2022-07-11 22:55] LABS: MANUAL DIFF FLAG NO
[2022-07-11 22:56] LABS: Basophils Absolute Auto 0.1 X10*3/uL (0.0-0.2); Basophils Percent Auto 1.1 % (0-2); Eosinophils Absolute Auto 0.3 X10*3/uL (0.0-0.4); Hematocrit 40.2 % (37.0-47.0); Imm Gran Abs Auto 0.01 X10*3/uL (0.00-0.03); Imm Gran Pct Auto 0.2 % (0.0-0.4); Lymphocytes Absolute Auto 1.7 X10*3/uL (1.2-4.9); Lymphocytes Percent Auto 30.5 % (20-40); Mean Corpuscular HGB Conc 32.3 g/dl (31.0-35.0); Mean Corpuscular Volume 86.6 fL (80.0-98.0); Mean Platelet Volume 9.5 fL (9.4-12.3); Monocytes Absolute Auto 0.7 X10*3/uL (0.1-1.2); Monocytes Percent Auto 11.7 % (2-11); Neutrophils Absolute Auto 2.9 x10*3/uL (2.0-8.3); Neutrophils Percent Auto 51.5 % (45-73); Platelet Count 219 X10*3/uL (160-400); Red Blood Count 4.64 X10*6/uL (4.20-5.50); Red Cell Distribution Width 16.4 % (11.0-16.0); White Blood Count 5.6 X10*3/uL (4.8-10.8)
[2022-07-11 23:08] LABS: Anion Gap 13 (12-20); Blood Urea Nitrogen 17 mg/dL (9-16); Calcium 9.7 mg/dL (8.4-10.2); Carbon Dioxide 29 mmol/L (22-29); Chloride 102 mmol/L (96-108); Creatinine Clr Calc Pharmacy 62.3; Estimated Glomerular Filt Rate > 60; Glucose Random 99 mg/dL (60-115); Potassium 3.6 mmol/L (3.3-5.1); Sodium 140 mmol/L (135-145)
[2022-07-11 23:17] LABS: Troponin-I High Sensitivity 3.2 ng/L (<3.5-17.0)
[2022-07-11 23:31] LABS: D Dimer High Sensitivity 459 NG/ML
[2022-07-11 23:47] VITALS: BP 161/106; PULSE 84; RESP 14; TEMP 36.4; O2SAT 95
--- NOTE | 2022-07-11 23:57 | PC.NURSE ---
This rfp writer assumed care of this Pt at 2300. Pt A&Ox4, reports left sided chest pain under breast, started prior to arrival, reports its non radiating and rates the pain 2/10. A-fib noted on bedside monitor, rate in the 90's. Pt pivoted to W/C for transport to .
[2022-07-12] VITALS: PULSE 93
[2022-07-12] MEDS: iohexoL 350 MG/ML 100 ML INFUS..BTL 60 ML IV (00:48)
[2022-07-12] MEDS: Butalb/Acetamin/Caff 50/325/40 TABLET 1 TAB PO (01:38)
[2022-07-12 02:17] LABS: Troponin-I High Sensitivity 4.2 ng/L (<3.5-17.0)
[2022-07-12 02:38] VITALS: BP 127/73; PULSE 92; RESP 16; TEMP 36.7; O2SAT 95
== END 2022-07-12 03:12 | disposition home or self-care (01) ==
PROVIDERS: Emergency Provider Emergency Medicine; PCP Internal Medicine
DX: M79.18 Myalgia, other site (principal); R07.89 Other chest pain; R51.9 Headache, unspecified; I10 Essential (primary) hypertension; I48.19 Other persistent atrial fibrillation; Z86.73 Personal history of transient ischemic attack (TIA), and cerebral infarction without residual deficits
CPT/HCPCS: 36415; 71275; 80048; 84484; 85025; 85379; 93005; 99284; 99285; Q9967

== ENCOUNTER 2022-07-16 09:20 | Day surgery (SDC) | payer MEDICARE, SELFPAY ==
--- NOTE | 2022-07-15 13:56 | HO.ANESPROP2 ---
Documented by User: Milly Singer NP 07/15/22 14:00 HPI - Anesthesia Eval Consult details Narrative: 72yo F for Upper Endoscopy and Colonoscopy Eliquis for afib [facility] – [place] ED 07/11/22 with atypical CP. Reproducible chest wall pain PMFSH Active Problems Active Problems: All Active Problems (Updated 07/13/22 @ 00:12 by Andrzej Alcantar) Primary osteoarthritis of both knees (Acute) Osteoarthritis of shoulders, bilateral (Acute) Allergic dermatitis (Acute) Abnormal ultrasound of bladder (Acute) Postmenopausal bleeding (Acute) Myalgia (Acute) Weakness (Acute) Altered mental status (Acute) Urinary tract infection due to ESBL Klebsiella (Acute) Hypomagnesemia (Acute) Essential hypertension (Acute) Ascending aortic aneurysm (Acute) Persistent atrial fibrillation (Acute) Primary osteoarthritis involving multiple joints (Acute) Past Medical History Medical History Anxiety Arthritis Asthma Carpal tunnel syndrome Chronic pain GERD (gastroesophageal reflux disease) HTN (hypertension) Hypothyroidism Obesity Persistent atrial fibrillation Primary osteoarthritis involving multiple joints Stroke Family History Family History Father CVD (cardiovascular disease) Diabetes Mother CVD (cardiovascular disease) HTN (hypertension) Surgical History Surgical History History of bladder surgery History of left shoulder replacement History of right shoulder replacement History of tonsillectomy Hx of cholecystectomy S/P foot surgery, right S/P panniculectomy Social History Social History Household Members: Family Housing: House Do you presently have visiting nurse or other home services: No Unable to assess alcohol history related to: Unknown Alcohol intake: never Patient Tobacco Use Status: Tobacco use Unknown e-Cigarette/Vaping Use: Never Used Advance Directives: No Advance Directives Information Provided: Yes service: No Current occupational status: retired Meds Allergies Allergy/AdvReac Type Severity Reaction Status Date / Time No Known Allergies Allergy Mild N/A Verified 07/11/22 22:21 Home Medications Medication Instructions Recorded Confirmed Last Taken Type apixaban 5 mg tablet (Eliquis) 5 mg PO BID 03/27/20 12/17/21 05/18/21 History atorvastatin 40 mg tablet 40 mg PO DAILY 03/27/20 12/17/21 05/18/21 History conj estrogen-medroxyprogesterone 1 tab PO DAILY 03/27/20 12/17/21 05/18/21 History 0.625 mg-2.5 mg tablet (Prempro) levothyroxine 50 mcg capsule 50 mcg PO DAILY 03/27/20 12/17/21 05/18/21 History omeprazole 20 mg capsule,delayed 20 mg PO DAILY 03/27/20 12/17/21 05/18/21 History release verapamil 120 mg 24 hr 120 mg PO DAILY 03/27/20 12/17/21 05/18/21 History capsule,extended release [id number]-gngkjgks 1 tab PO DAILY PRN Headache 05/13/21 12/17/21 05/18/21 History 50 mg-325 mg-40 mg tablet gabapentin 400 mg capsule 1 cap PO QID 05/13/21 12/17/21 05/18/21 History hydrocodone 5 mg-acetaminophen 325 1 tab PO BID PRN Pain 05/13/21 12/17/21 05/18/21 History mg tablet mirabegron 25 mg tablet,extended 1 tab PO DAILY 05/13/21 12/17/21 05/18/21 History release 24 hr (Myrbetriq) ondansetron HCl 4 mg tablet 1 tab PO BEDTIME 05/13/21 12/17/21 05/18/21 History celecoxib 200 mg capsule 200 mg PO DAILY 12/17/21 12/17/21 Unknown History Exam Exam Date and Time: July 15, 2022 1356 Pertinent Lab Results Pertinent Lab Results: Laboratory Tests 07/11/22 07/11/22 22:48 22:48 WBC 5.6 Hgb 13.0 Hct 40.2 Plt Count 219 Sodium 140 Potassium 3.6 Chloride 102 Carbon Dioxide 29 BUN 17 H Creatinine 0.79 Narrative Narrative: EKG 06/2022 Vent. Rate : 085 BPM ? ? Atrial Rate : 000 BPM ?? P-R Int : 000 ms? QRS Dur : 090 ms ? ? QT Int : 372 ms ? ? ? P-R-T Axes : 000 -09 038 degrees ?? QTc Int : 442 ms ? Atrial fibrillation Nonspecific T wave abnormality Abnormal ECG When compared with ECG of 16-JAN-2022 01:15, No significant change was found ECHO 03/2021 Conclusions: - 1.? Normal LV systolic function? 2. Mildly dilated left atrium? 3. Trivial aortic regurgitation? 4.? Mildly dilated ascending aorta at 4.2 cm ? 5.? No gross pericardial effusion? 6.? Normal RV systolic pressure? ? Assessment and Plan Assessment Anesthesia Assessment: Chart Reviewed Documented by User: Leticia Bueno MD 07/16/22 09:49 [facility] Active Problems Active Problems: All Active Problems (Updated 07/13/22 @ 00:12 by Andrzej Alcantar) Primary osteoarthritis of both knees (Acute) Osteoarthritis of shoulders, bilateral (Acute) Allergic dermatitis (Acute) Abnormal ultrasound of bladder (Acute) Postmenopausal bleeding (Acute) Myalgia (Acute) Weakness (Acute) Altered mental status (Acute) Urinary tract infection due to ESBL Klebsiella (Acute) Hypomagnesemia (Acute) Essential hypertension (Acute) Ascending aortic aneurysm (Acute) Persistent atrial fibrillation (Acute) Primary osteoarthritis involving multiple joints (Acute) Denies EARLENE Past Medical History Medical History Anxiety Arthritis Asthma Carpal tunnel syndrome Chronic pain GERD (gastroesophageal reflux disease) HTN (hypertension) Hypothyroidism Obesity Persistent atrial fibrillation Primary osteoarthritis involving multiple joints Stroke Family History Family History Father CVD (cardiovascular disease) Diabetes Mother CVD (cardiovascular disease) HTN (hypertension) Family history of problems with anesthesia: No Surgical History Surgical History History of bladder surgery History of left shoulder replacement History of right shoulder replacement History of tonsillectomy Hx of cholecystectomy S/P foot surgery, right S/P panniculectomy History of Problems with Anesthesia: No Social History Social History Household Members: Family Housing: House Do you presently have visiting nurse or other home services: No Unable to assess alcohol history related to: Unknown Alcohol intake: never Patient Tobacco Use Status: Tobacco use Unknown e-Cigarette/Vaping Use: Never Used Advance Directives: No Advance Directives Information Provided: Yes service: No Current occupational status: retired [employer] Allergies Allergy/AdvReac Type Severity Reaction Status Date / Time No Known Allergies Allergy Mild N/A Verified 07/11/22 22:21 Home Medications Medication Instructions Recorded Confirmed Last Taken Type apixaban 5 mg tablet (Eliquis) 5 mg PO BID 03/27/20 12/17/21 05/18/21 History atorvastatin 40 mg tablet 40 mg PO DAILY 03/27/20 12/17/21 05/18/21 History conj estrogen-medroxyprogesterone 1 tab PO DAILY 03/27/20 12/17/21 05/18/21 History 0.625 mg-2.5 mg tablet (Prempro) levothyroxine 50 mcg capsule 50 mcg PO DAILY 03/27/20 12/17/21 05/18/21 History omeprazole 20 mg capsule,delayed 20 mg PO DAILY 03/27/20 12/17/21 05/18/21 History release verapamil 120 mg 24 hr 120 mg PO DAILY 03/27/20 12/17/21 05/18/21 History capsule,extended release [id number]-jyrmediq 1 tab PO DAILY PRN Headache 05/13/21 12/17/21 05/18/21 History 50 mg-325 mg-40 mg tablet gabapentin 400 mg capsule 1 cap PO QID 05/13/21 12/17/21 05/18/21 History hydrocodone 5 mg-acetaminophen 325 1 tab PO BID PRN Pain 05/13/21 12/17/21 05/18/21 History mg tablet mirabegron 25 mg tablet,extended 1 tab PO DAILY 05/13/21 12/17/21 05/18/21 History release 24 hr (Myrbetriq) ondansetron HCl 4 mg tablet 1 tab PO BEDTIME 05/13/21 12/17/21 05/18/21 History celecoxib 200 mg capsule 200 mg PO DAILY 12/17/21 12/17/21 Unknown History Exam Height,Weight and Vital Signs: Height 5 ft 5 in Weight 74.843 kg Vital Signs Temp Pulse Resp BP Pulse Ox O2 Del Method 07/16/22 09:36 98 F 101 H 18 138/78 96 Room Air Airway Mallampati Class: II (Significant overbite) TM Dist: >3cm Neck ROM: Full Partial: Lower Loose/Missing/Broken Teeth: Yes (Several capped teeth. Partial dentures bottom. Denies broken or loose teeth) Heart: Irregularly irregular Lungs: CTAB Assessment and Plan Assessment Anesthesia Assessment: Anesthesia Plan Discussed Final Anesthetic Review Family History of Problems with Anesthesia: No History of Problems with Anesthesia: No NPO: Yes ASA Class: III Final Preanesthetic Review: No Changes in Pt Med Stat, Meds/Allgs Chart Reviewed, Consent Obtained/Reviewed and Anes Risks/Benef Reviewed Patient Risk: Intermediate Procedure Risk: Low Assessment/Block/Sedation in SS: Assess/Block/Sedation-SS Anesthetic Plan Anesthetic Plan: MAC: Disposition: Standard PACU
[2022-07-16 06:15] VITALS: BMI 27.4
[2022-07-16 09:36] VITALS: BP 138/78; PULSE 101; RESP 18; TEMP 36.6; O2SAT 96
[2022-07-16] MEDS: Sodium Phosphate,Mono-Dibasic 133 ML ENEMA PR ×2 (09:50→10:18)
[2022-07-16] MEDS: Lactated Ringers 1,000 ML 100 ML IVCONT (10:17)
--- NOTE | 2022-07-16 10:30 | PC.NURSE ---
2 fleets given rectally first result brown liquid 2nd result light brown to zuniga liquid no solids
[2022-07-16 11:46] VITALS: BP 121/69; PULSE 97; RESP 23; TEMP 36.4; O2SAT 97
--- NOTE | 2022-07-16 11:53 | PM.OP ---
Brief Operative Note Date of Service: 07/16/22 Pre-op diagnosis: Iron deficiency anemia Post-op diagnosis: other (Gastritis, Hiatal hernia, R/O celiac disease, Diverticulosis) Procedure: EGD with biopsies, Colonoscopy to the cecum Surgeon: Travis Taylor Anesthesia: MAC Was an Solar Energy System Installer used for this Procedure?: No Estimated blood loss (mL): 2.0 Pathology: other (A. Descending duodenum B. Gastric antrum) Condition: stable Disposition: PACU
[2022-07-16 12:01] VITALS: BP 121/69; PULSE 89; RESP 23; TEMP 36.6; O2SAT 100
--- NOTE | 2022-07-16 17:19 | OP_ITS ---
DATE OF SERVICE: 07/16/2022 SURGEON: Travis Taylor MD INDICATIONS: The patient presents for evaluation of iron-deficiency anemia. Full consent has been obtained from her for this, including risks of bleeding and perforation. PREOPERATIVE DIAGNOSIS: Iron-deficiency anemia. POSTOPERATIVE DIAGNOSIS: PROCEDURE PERFORMED: Esophagogastroduodenoscopy with biopsies, and colonoscopy to the cecum. ESTIMATED BLOOD LOSS: COMPLICATIONS: ANESTHESIA: Monitored anesthesia care. ASSISTANTS: SPECIMENS: POSTOPERATIVE DIAGNOSES: Iron-deficiency anemia, gastritis, rule out celiac disease, hiatal hernia, diverticulosis and internal hemorrhoids. DESCRIPTION OF PROCEDURE: The patient was placed in the left lateral decubitus position. The Olympus video gastroscope was passed into the posterior oropharynx and upper esophagus under direct vision. The scope was passed slowly to the distal esophagus. The gastroesophageal junction appeared at 36 cm. There was no sign of any esophagitis nor Doherty's mucosa. The scope entered into the stomach. There was a small hiatal hernia. The scope was advanced to the pylorus and the duodenum was cannulated to the descending portion. The duodenum including the bulb appeared normal without mass or ulceration. Biopsies were obtained from the second and third portions of the duodenum. The scope was withdrawn back into stomach. The gastric antrum and body were carefully inspected. With insufflation of air, they did appear to be two areas of some scarring and surrounding erythema, possibly consistent with previous erosive gastritis and/or peptic ulcer disease. However, there was no sign of any active gastritis nor ulcer disease. There was good peristalsis. Biopsies were obtained. Scope was retroflexed visualizing the proximal stomach carefully which appeared normal, without any sign of mass or ulceration. The scope was straightened and withdrawn back in the esophagus. The esophageal mucosa appeared normal. The scope was withdrawn from the patient. She was turned around for the colonoscopy. The digital rectal exam revealed no abnormalities. The Olympus video pediatric colonoscope was entered into the rectum and advanced easily to the cecum. Once in the cecum, I did identify normal-appearing cecal pouch with appendiceal orifice and normal-appearing ileocecal valve. The entire cecum and ileocecal valve appeared normal. The scope was then slowly withdrawn assessing all mucosal surface carefully. Preparation was excellent. I do not visualize any sign of polyps, colitis, nor angiodysplasia. There was mild amount of sigmoid diverticulosis. In the rectum, the scope was retroflexed visualizing internal hemorrhoids, but no other pathology. The rectal mucosa appeared normal. The scope was straightened and withdrawn from the patient. She tolerated both procedures well and was returned to the recovery area in stable condition. IMPRESSION: 1. Gastritis. 2. Rule out celiac disease. 3. Hiatal hernia. 4. Diverticulosis. 5. Internal hemorrhoids. PLAN: The results of the pathology will be checked. She was advised to continue her daily omeprazole. She was advised to resume her Eliquis within 48 hours. She had been using Aleve and she has been instructed to stay off all NSAIDs and aspirin while on the Eliquis. She will resume her iron. Her most recent labs did show improvement with a hemoglobin of 13.0 on 07/11, compared to 9.8 back in March. She has a normal MCV. Her iron was also improved at a level of 80 compared to 34 back in March, along with the normal iron saturation of 28%. Her ferritin was 27. At this point, I suspect her previous anemia was in relation to having been on the Aleve while on Eliquis. She maybe even had some ulcer disease based on scarring in the gastric antrum. If the blood count remains stable, I do not think she will need any further workup from a GI standpoint. 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 She is scheduled for a knee replacement in July. She will see me on a p.r.n. basis. MD DEONNA Abdi/SIENNA / [phone] MTDOwen
== END 2022-07-16 12:43 | disposition home or self-care (01) ==
PROVIDERS: PCP Internal Medicine; Visit Provider Internal Medicine
PROC: (CPT 45378; principal; 2022-07-16 10:20)
DX: D50.9 Iron deficiency anemia, unspecified (principal); Z86.010 Personal history of colon polyps; K57.30 Diverticulosis of large intestine without perforation or abscess without bleeding; K64.8 Other hemorrhoids; K29.50 Unspecified chronic gastritis without bleeding; K44.9 Diaphragmatic hernia without obstruction or gangrene; I48.19 Other persistent atrial fibrillation; Z86.73 Personal history of transient ischemic attack (TIA), and cerebral infarction without residual deficits; I10 Essential (primary) hypertension; J45.909 Unspecified asthma, uncomplicated; M15.9 Polyosteoarthritis, unspecified; G89.29 Other chronic pain; E83.42 Hypomagnesemia; Z79.01 Long term (current) use of anticoagulants; Z79.899 Other long term (current) drug therapy; Z90.49 Acquired absence of other specified parts of digestive tract
CPT/HCPCS: 45378; 43239; 88305; 88342; J2405; J2765

== ENCOUNTER 2022-10-02 11:43 | Outpatient (REF) | payer MEDICARE, SELFPAY ==
[2022-10-02 13:27] LABS: Alanine Aminotransferase 13 U/L (0-31); Albumin Level 3.8 g/dL (3.5-5.0); Alkaline Phosphatase 110 U/L (39-117); Aspartate Amino Transferase 23 U/L (5-31); Bilirubin Direct 0.2 mg/dL (0.0-0.5); Bilirubin Total 0.5 mg/dL (0.0-1.0)
[2022-10-02 13:33] LABS: Cholesterol 156 mg/dL; HDL Cholesterol 65 mg/dL; LDL Cholesterol Calculated 73 mg/dl; Triglycerides 90 mg/dL
[2022-10-02 14:01] LABS: Reflex LDLD? No
== END 2022-10-02 11:44 | disposition home or self-care (01) ==
LOC: HO.LNP 11:43
PROVIDERS: Visit Provider Internal Medicine
DX: E78.00 Pure hypercholesterolemia, unspecified (principal)
CPT/HCPCS: 80061; 80076

== ENCOUNTER 2022-11-11 09:48 | Outpatient (REF) | payer MEDICARE, SELFPAY ==
[2022-11-11 10:50] LABS: Leukocytes Stool Qualitative NEGATIVE (NEGATIVE)
[2022-11-11 11:28] LABS: CDiff Gene PCR POSITIVE (Negative)
[2022-11-11 12:15] LABS: CDIFF Internal ctrl Dots and bkg OK (V); CDiff Toxin Negative (Negative)
[2022-11-11 12:41] LABS: Adenovirus F 40/41 Not Detected (Not Detect.); Astrovirus Not Detected (Not Detect.); Campylobacter Not Detected (Not Detect.); Cryptosporidium Not Detected (Not Detect.); Cyclospora cayetanensis Not Detected (Not Detect.); E. coli EAEC Not Detected (Not Detect.); E. coli EPEC Not Detected (Not Detect.); E. coli ETEC Not Detected (Not Detect.); E. coli STEC Not Detected (Not Detect.); Entamoeba histolytica Not Detected (Not Detect.); Giardia lamblia Not Detected (Not Detect.); Norovirus GI/GII Not Detected (Not Detect.); Plesiomonas shigelloides Not Detected (Not Detect.); Rotavirus A Not Detected (Not Detect.); Salmonella Not Detected (Not Detect.); Sapovirus Not Detected (Not Detect.); Shigella sp./EIEC Not Detected (Not Detect.); Vibrio Not Detected (Not Detect.); Vibrio Cholerae Not Detected (Not Detect.); Yersinia enterocolitica Not Detected (Not Detect.)
== END 2022-11-11 09:49 | disposition home or self-care (01) ==
LOC: HO.LNP 09:48
PROVIDERS: Visit Provider Internal Medicine
DX: R19.7 Diarrhea, unspecified (principal)
CPT/HCPCS: 87324; 87493; 87507; 89055

== ENCOUNTER 2022-12-08 | Outpatient (REF) | payer MEDICARE, SELFPAY ==
[2022-12-10 13:22] LABS: CDiff Gene PCR NEGATIVE (Negative)
[2022-12-16 19:34] LABS: Calprotectin, Fecal 36 mcg/g
== END 2022-12-08 00:01 | disposition home or self-care (01) ==
LOC: HO.LNP
PROVIDERS: Visit Provider Internal Medicine
DX: R19.7 Diarrhea, unspecified (principal); Z86.19 Personal history of other infectious and parasitic diseases
CPT/HCPCS: 83993; 87493; 89055

== ENCOUNTER 2023-01-21 15:15 | Outpatient (REF) | payer MEDICARE, SELFPAY ==
[2023-01-21 16:42] LABS: Basophils Percent Auto 0.7 % (0-2); Eosinophils Absolute Auto 0.2 X10*3/uL (0.0-0.4); Eosinophils Percent Auto 4.1 % (0-4); Hematocrit 38.1 % (37.0-47.0); Hemoglobin 12.5 g/dl (12.0-16.0); Imm Gran Abs Auto 0.01 X10*3/uL (0.00-0.03); Imm Gran Pct Auto 0.2 % (0.0-0.4); Lymphocytes Absolute Auto 1.5 X10*3/uL (1.2-4.9); Lymphocytes Percent Auto 24.8 % (20-40); MANUAL DIFF FLAG NO; Mean Corpuscular HGB Conc 32.8 g/dl (31.0-35.0); Mean Corpuscular Volume 88.4 fL (80.0-98.0); Mean Platelet Volume 9.9 fL (9.4-12.3); Monocytes Absolute Auto 0.6 X10*3/uL (0.1-1.2); Monocytes Percent Auto 10.3 % (2-11); Neutrophils Absolute Auto 3.5 x10*3/uL (2.0-8.3); Neutrophils Percent Auto 59.9 % (45-73); Platelet Count 229 X10*3/uL (160-400); Red Blood Count 4.31 X10*6/uL (4.20-5.50); White Blood Count 5.9 X10*3/uL (4.8-10.8)
[2023-01-21 17:23] LABS: Alanine Aminotransferase 11 U/L (0-31); Albumin Level 3.8 g/dL (3.5-5.0); Alkaline Phosphatase 90 U/L (39-117); Anion Gap 15 (12-20); Aspartate Amino Transferase 20 U/L (5-31); Bilirubin Direct 0.2 mg/dL (0.0-0.5); Bilirubin Total 0.4 mg/dL (0.0-1.0); Blood Urea Nitrogen 15 mg/dL (9-16); C Reactive Protein 0.75 mg/dL (< or = 0.50); Calcium 9.9 mg/dL (8.4-10.2); Carbon Dioxide 29 mmol/L (22-29); Chloride 99 mmol/L (96-108); Estimated Glomerular Filt Rate 57; Glucose Random 95 mg/dL (60-115); Potassium 3.3 mmol/L (3.3-5.1); Sodium 140 mmol/L (135-145); Total Protein 6.9 g/dL (6.5-8.0)
[2023-01-21 17:24] LABS: Erythrocyte Sedimentation Rate 29 MM/HR (0-20)
[2023-01-21 17:36] LABS: TSH reflex Free T4 2.66 uIU/mL (0.32-4.0)
== END 2023-01-21 15:16 | disposition home or self-care (01) ==
LOC: HO.LAB 15:15
PROVIDERS: PCP Internal Medicine; Visit Provider Internal Medicine
DX: R19.7 Diarrhea, unspecified (principal)
CPT/HCPCS: 36415; 80048; 80076; 84443; 85025; 85652; 86140

== ENCOUNTER 2023-01-29 12:25 | Outpatient (REF) | payer MEDICARE, SELFPAY ==
[2023-01-29 13:31] LABS: Leukocytes Stool Qualitative NEGATIVE (NEGATIVE)
[2023-01-29 16:58] LABS: CDiff Gene PCR NEGATIVE (Negative)
== END 2023-01-29 12:26 | disposition home or self-care (01) ==
LOC: HO.LNP 12:25
PROVIDERS: Visit Provider Internal Medicine
DX: R19.7 Diarrhea, unspecified (principal)
CPT/HCPCS: 87493; 87507; 89055

== ENCOUNTER 2023-02-09 13:57 | Outpatient (REF) | payer MEDICARE, SELFPAY ==
[2023-02-10 09:47] LABS: Adenovirus F 40/41 Not Detected (Not Detect.); Astrovirus Not Detected (Not Detect.); Campylobacter Not Detected (Not Detect.); Cryptosporidium Not Detected (Not Detect.); Cyclospora cayetanensis Not Detected (Not Detect.); E. coli EAEC Not Detected (Not Detect.); E. coli EPEC Not Detected (Not Detect.); E. coli ETEC Not Detected (Not Detect.); E. coli STEC Not Detected (Not Detect.); Entamoeba histolytica Not Detected (Not Detect.); Giardia lamblia Not Detected (Not Detect.); Norovirus GI/GII Not Detected (Not Detect.); Plesiomonas shigelloides Not Detected (Not Detect.); Rotavirus A Not Detected (Not Detect.); Salmonella Not Detected (Not Detect.); Sapovirus Not Detected (Not Detect.); Shigella sp./EIEC Not Detected (Not Detect.); Vibrio Not Detected (Not Detect.); Vibrio Cholerae Not Detected (Not Detect.); Yersinia enterocolitica Not Detected (Not Detect.)
== END 2023-02-09 13:58 | disposition home or self-care (01) ==
LOC: HO.LNP 13:57
PROVIDERS: Visit Provider Internal Medicine
DX: R19.7 Diarrhea, unspecified (principal)
CPT/HCPCS: 87507

== ENCOUNTER 2023-04-02 11:19 | Outpatient (REF) | payer MEDICARE, SELFPAY ==
[2023-04-02 11:24] LABS: MANUAL DIFF FLAG NO
[2023-04-02 11:38] LABS: Basophils Absolute Auto 0.1 X10*3/uL (0.0-0.2); Basophils Percent Auto 0.9 % (0-2); Eosinophils Absolute Auto 0.4 X10*3/uL (0.0-0.4); Eosinophils Percent Auto 5.8 % (0-4); Hematocrit 41.5 % (37.0-47.0); Hemoglobin 13.1 g/dl (12.0-16.0); Imm Gran Abs Auto 0.02 X10*3/uL (0.00-0.03); Imm Gran Pct Auto 0.3 % (0.0-0.4); Lymphocytes Absolute Auto 2.3 X10*3/uL (1.2-4.9); Lymphocytes Percent Auto 34.5 % (20-40); Mean Corpuscular HGB Conc 31.6 g/dl (31.0-35.0); Mean Corpuscular Hemoglobin 28.9 pg (27.0-33.0); Mean Corpuscular Volume 91.6 fL (80.0-98.0); Mean Platelet Volume 11.4 fL (9.4-12.3); Monocytes Absolute Auto 0.9 X10*3/uL (0.1-1.2); Monocytes Percent Auto 12.9 % (2-11); Neutrophils Absolute Auto 3.1 x10*3/uL (2.0-8.3); Neutrophils Percent Auto 45.6 % (45-73); Platelet Count 251 X10*3/uL (160-400); Red Blood Count 4.53 X10*6/uL (4.20-5.50); Red Cell Distribution Width 13.7 % (11.0-16.0); White Blood Count 6.8 X10*3/uL (4.8-10.8)
[2023-04-02 11:42] LABS: Appearance Urine Turbid; Color Urine Yellow; Glucose Urine UA Negative (Negative); Leukocyte Esterase Urine Moderate (2+) (Negative); Nitrite Urine Negative (Negative); PH 7.5 (5.0-9.0); Specific Gravity - Urine 1.025 (1.005-1.025); UMIC TRIGGER UACC YES; Urine Blood Negative (Negative); Urine Ketones Trace mg/dL (Negative); Urine Protein Trace mg/dL (Neg-Trace)
[2023-04-02 11:49] LABS: Bacteria Urine 4+ (None Seen); Hyaline Casts Urine 0-2 /LPF (0-2); UACC Culture Trigger YES; WBC Urine 21-50 /HPF (0-5)
[2023-04-02 12:03] LABS: Alanine Aminotransferase 11 U/L (0-31); Albumin Level 3.8 g/dL (3.5-5.0); Alkaline Phosphatase 88 U/L (39-117); Anion Gap 16 (12-20); Aspartate Amino Transferase 20 U/L (5-31); Bilirubin Total 0.5 mg/dL (0.0-1.0); Blood Urea Nitrogen 23 mg/dL (9-16); Calcium 10.2 mg/dL (8.4-10.2); Carbon Dioxide 30 mmol/L (22-29); Chloride 100 mmol/L (96-108); Cholesterol 127 mg/dL (<200); Estimated Glomerular Filt Rate > 60; Glucose Fasting 79 mg/dL (60-99); HDL Cholesterol 51 mg/dL (>40); Iron 63 mcg/dL (30-160); LDL Cholesterol Calculated 53 mg/dL (<100); Percent Iron Saturation 19 % (15-50); Potassium 3.8 mmol/L (3.3-5.1); Sodium 142 mmol/L (135-145); Total Iron Binding Capacity 334 mcg/dL (228-428); Triglycerides 116 mg/dL (<150); Unsaturated Iron Binding 271 ug/dL
[2023-04-02 12:08] LABS: TSH reflex Free T4 0.81 uIU/mL (0.32-4.0)
== END 2023-04-02 11:20 | disposition home or self-care (01) ==
LOC: HO.LNP 11:19
PROVIDERS: Visit Provider Internal Medicine
DX: E03.9 Hypothyroidism, unspecified (principal); D72.820 Lymphocytosis (symptomatic); E78.00 Pure hypercholesterolemia, unspecified; D50.0 Iron deficiency anemia secondary to blood loss (chronic); I10 Essential (primary) hypertension; R82.90 Unspecified abnormal findings in urine
CPT/HCPCS: 80053; 80061; 81001; 83540; 84443; 85025; 87086; 87088; 87186

== ENCOUNTER 2023-04-18 13:44 | Outpatient (REF) | payer MEDICARE, SELFPAY ==
[2023-04-18 14:50] LABS: Leukocytes Stool Qualitative NEGATIVE (NEGATIVE)
[2023-04-18 14:54] LABS: CDiff Gene PCR NEGATIVE (Negative)
== END 2023-04-18 13:45 | disposition home or self-care (01) ==
LOC: HO.LAB 13:44
PROVIDERS: PCP Internal Medicine; Visit Provider Internal Medicine
DX: R19.7 Diarrhea, unspecified (principal)
CPT/HCPCS: 87493; 89055

== ENCOUNTER 2023-05-04 10:55 | Outpatient (REF) | payer MEDICARE, SELFPAY ==
[2023-05-04 11:27] LABS: Appearance Urine Cloudy; Color Urine Yellow; Glucose Urine UA Negative (Negative); Leukocyte Esterase Urine Trace (Negative); Nitrite Urine Negative (Negative); PH 6.5 (5.0-9.0); Specific Gravity - Urine 1.025 (1.005-1.025); UMIC TRIGGER UACC YES; Urine Blood Negative (Negative); Urine Ketones Negative (Negative); Urine Protein Trace mg/dL (Neg-Trace)
[2023-05-04 11:35] LABS: Bacteria Urine 4+ (None Seen); Hyaline Casts Urine 0-2 /LPF (0-2); RBC Urine 0-2 /HPF (0-2); Squamous Epithelial Cell Urine 0-2 /HPF (0-2); UACC Culture Trigger YES
== END 2023-05-04 10:56 | disposition home or self-care (01) ==
LOC: HO.LNP 10:55
PROVIDERS: Visit Provider Internal Medicine
DX: R82.90 Unspecified abnormal findings in urine (principal); Z51.89 Encounter for other specified aftercare
CPT/HCPCS: 81001; 87086; 87088; 87186

== ENCOUNTER 2023-05-28 19:01 | Inpatient (IN) | payer MEDICARE, SELFPAY ==
--- NOTE | ~2023-05-28 | XR_ITS ---
EXAMINATION: XR CHEST CLINICAL INFORMATION: Chest pain COMPARISON: Chest 01/16/2022 TECHNIQUE: 2 views of the chest were obtained. FINDINGS: There is elevated right hemidiaphragm with right basilar atelectasis. Rest of lungs are expanded and clear. Heart size and pulmonary vascularity is normal. There are bilateral shoulder prosthesis. No gross bony abnormality seen. XR/XR chest 2V IMPRESSION: Elevated right hemidiaphragm with right basilar atelectasis. Stable findings. Rest of lungs are clear
--- NOTE | ~2023-05-28 | NM_ITS ---
Myocardial perfusion study Indication: To evaluate for myocardial ischemia Technique: The patient was brought in for a Lexiscan perfusion study on 06/01/2023. Patient performed low-level exercise and was injected 0.4 mg of Lexiscan intravenously. Within a minute of injection, 25 mCi of sestamibi was given intravenously. Images were obtained using the SPECT gamma camera interlaced with the gating device. Images were obtained in supine position. Resting perfusion study was performed on 06/02/2023. Patient was administered 25 mCi of sestamibi intravenously at rest. Images were then obtained in supine position. Images obtained with and without CT attenuation. Total DLP 137 mGy-cm. Images were processed with the software and compared side to side in short axis, horizontal long axis and vertical long axis views. Findings: Both stress and rest perfusion study was somewhat suboptimal due to arms down position as well as subdiaphragmatic uptake interfering with inferior wall uptake especially on resting study The stress perfusion study showed non attenuated images show very small area of apical lateral thinning to mildly reduced uptake. Rest of the myocardium is normal uptake. Attenuated corrected images show normal uptake of radiotracer in all segments of LV myocardium... The gated study shows normal LV function with calculated LVEF of 71%. LV cavity is normal size. The gated study shows normal systolic wall thickening and contraction of segments. Resting study shows non attenuated images show normal uptake of radiotracer in all segments of LV myocardium. Attenuated corrected images show moderately reduced uptake in the apex of the LV myocardium.. Gating at rest a was not performed. The findings are consistent with normal myocardial perfusion. NM/NM pedro perf SPECT rest & str Impression: 1. Myocardial perfusion imaging study shows likely normal myocardial perfusion 2. Gated LVEF is 71% 3. Transient ischemic dilatation not present EKG is nondiagnostic for ischemia
--- NOTE | ~2023-05-28 | CT_ITS ---
EXAMINATION: CT ANGIOGRAM CHEST CLINICAL INFORMATION: Chest pain, history of aneurysm COMPARISON: 07/12/2022 TECHNIQUE: Multiple axial images were obtained through the chest after the administration of 70 mL of Omnipaque 350 intravenous contrast. Extensive vascular post-processing including two-dimensional and three-dimensional reformatted images were created and reviewed on an independent workstation. This CT examination was performed using dose optimization techniques as appropriate, variously including the following: *Automated exposure control *Adjustment of mA and/or kV according to patient size (this includes techniques or standardized protocols for targeted exams where dose is matched to indication/reason for exam; i.e. extremities or head) *Use of iterative reconstruction technique DLP: 451 mGy-cm FINDINGS: The ascending aorta measures approximately 4.1 cm in diameter, similar to prior. No evidence of aortic dissection. Scattered atherosclerotic calcification along the aorta. No central pulmonary embolus is seen. There is elevation of the right hemidiaphragm. Redemonstrated adjacent right middle lobe atelectasis and partial right lower lobe atelectasis. No additional consolidation is seen. No pneumothorax or pleural effusion. The visualized thyroid gland is unremarkable. No lymphadenopathy is seen. Cardiac size is within normal limits; no pericardial effusion. Coronary artery calcifications are present. No axillary lymphadenopathy is present. No acute findings identified in the upper abdomen. Bilateral shoulder arthroplasty hardware noted. Multilevel degenerative changes in the spine. Partially visualized thoracolumbar levoscoliosis. CT/CT angio chest aorta IMPRESSION: 1. No acute findings identified in the chest. Ascending aorta measures approximately 4.1 cm in diameter, similar to prior. 2. Elevated right hemidiaphragm with adjacent atelectasis in the middle and lower lobes. 3. Coronary artery calcifications. Correlation with cardiac risk factors is recommended.
--- NOTE | 2023-05-28 19:04 | ECG_ITS ---
Test Reason : CHEST PAIN Blood Pressure : / mmHG Vent. Rate : 072 BPM Atrial Rate : 192 BPM P-R Int : 000 ms QRS Dur : 098 ms QT Int : 396 ms P-R-T Axes : 000 -04 158 degrees QTc Int : 433 ms Atrial fibrillation Incomplete right bundle branch block T wave abnormality, consider anterolateral ischemia Abnormal ECG When compared with ECG of 11-JUL-2022 22:02, T wave inversion now evident in Lateral leads Referred By: Kay Sears Electronically Signed By:Matthew Ruiz
--- NOTE | 2023-05-28 19:15 | ED_ITS ---
HPI - General Adult General Chief complaint: Chest Pain Stated complaint: chest pain Time Seen by Provider: 05/28/23 22:04 Source: patient, family and old records reviewed Mode of arrival: ambulatory Limitations: no limitations History of Present Illness HPI narrative: 73 yo female with PMH of afib on eliquis, thoracic aortic aneurysm 4.1cm, UTI, HTN, who comes in with episode of chest pain Thursday AM that woke her from sleep L side with shortness of breath. She denies exertional chest pain. It left her with a change in her voice. She now states her voice is squeaky. No symptoms since then and normal daily activities though she can barely walk due to back and neck issues. She denies GIB symptoms. No fevers, had resolved episode of diarrhea a few days ago. She is eating and drinking. She is hungry. She states her doctor made her come here. She has no pain now. MD complaint: chest pain Onset (ago): day(s) (2) Location: chest Radiation: non-radiation Severity: moderate Quality: aching Pain Consistency: now resolved Relieving factors: none Exacerbating factors: none Associated symptoms: malaise and shortness of breath Treatments prior to arrival: none Related Data Home Medications Medication Instructions Recorded Confirmed apixaban 5 mg tablet (Eliquis) 5 mg PO BID 03/27/20 12/17/21 atorvastatin 40 mg tablet 40 mg PO DAILY 03/27/20 12/17/21 conj estrogen-medroxyprogesterone 1 tab PO DAILY 03/27/20 12/17/21 0.625 mg-2.5 mg tablet (Prempro) levothyroxine 50 mcg capsule 50 mcg PO DAILY 03/27/20 12/17/21 omeprazole 20 mg capsule,delayed 20 mg PO DAILY 03/27/20 12/17/21 release verapamil 120 mg 24 hr 120 mg PO DAILY 03/27/20 12/17/21 capsule,extended release xcexrdzxtp-ngjpndntyetti-rpqwzpca 1 tab PO DAILY PRN Headache 05/13/21 12/17/21 50 mg-325 mg-40 mg tablet gabapentin 400 mg capsule 1 cap PO QID 05/13/21 12/17/21 hydrocodone 5 mg-acetaminophen 325 1 tab PO BID PRN Pain 05/13/21 12/17/21 mg tablet mirabegron 25 mg tablet,extended 1 tab PO DAILY 05/13/21 12/17/21 release 24 hr (Myrbetriq) ondansetron HCl 4 mg tablet 1 tab PO BEDTIME 05/13/21 12/17/21 Previous Rx's Medication Instructions Recorded cyclobenzaprine 10 mg tablet 10 mg PO TID #10 tabs 02/08/21 metoprolol tartrate 25 mg tablet 25 mg PO BID #60 tabs 05/18/21 triamcinolone acetonide 0.1 % 1 appl topical BID 1 week #80 grams 10/31/21 topical cream benzonatate 200 mg capsule 200 mg PO TID PRN cough #30 caps 01/16/22 codeine 10 mg-guaifenesin 100 mg/5 10 ml PO Q6H PRN cough #237 mL 01/16/22 mL oral liquid Allergies Allergy/AdvReac Type Severity Reaction Status Date / Time No Known Allergies Allergy Mild N/A Verified 07/11/22 22:21 Review of Systems 2 Review of Systems: Constitutional : No Weight loss, No Fever, No Chills ENT/Mouth : No sore throat, No Rhinorrhea Eyes: No Eye Pain, No Swelling Cardiovascular : no Chest Pain, no SOB, no Dyspnea on Exertion, No Orthopnea, No Edema, No Palpitations Respiratory : No Cough, No Sputum Gastrointestinal : pos Nausea, No Vomiting, No Diarrhea, No abdominal Pain, No Hematochezia, No Melena Genitourinary : No Dysuria, No Urinary Frequency Musculoskeletal : No joint pain, No Myalgias, No Joint Swelling Skin : No Skin Lesions, No rash Neuro : No Weakness, No Numbness, No Dizziness, No Headache Psych : No Anxiety/Panic, No Depression All other systems reviewed and are negative [facility] Past Medical History Attestation statement: The following information was validated with the patient. Source: old records reviewed Medical History Persistent atrial fibrillation Primary osteoarthritis involving multiple joints Anxiety GERD (gastroesophageal reflux disease) Carpal tunnel syndrome Stroke Hypothyroidism Arthritis HTN (hypertension) Asthma Obesity Chronic pain Surgical History History of left shoulder replacement History of right shoulder replacement S/P panniculectomy Hx of cholecystectomy S/P foot surgery, right History of bladder surgery History of tonsillectomy Family History Family History Father CVD (cardiovascular disease) Diabetes Mother CVD (cardiovascular disease) HTN (hypertension) Social History Social History Household Members: Family Housing: House Do you presently have visiting nurse or other home services: No Unable to assess alcohol history related to: Unknown Alcohol intake: never Patient Tobacco Use Status: Never used Tobacco Smoked in Last 30 Days: No e-Cigarette/Vaping Use: Never Used Use of substances other than those prescribed or required for medical reasons: No Advance Directives: No Advance Directives Information Provided: No service: No Current occupational status: retired Physical Exam ED Vital Signs: Vital Signs - 24 hr 05/28/23 19:21 05/28/23 21:50 05/28/23 21:56 Temperature 98.8 F 98.5 F Pulse Rate 82 84 Respiratory Rate 16 18 Blood Pressure 102/60 82/50 L 79/48 L Pulse Oximetry 97 98 Oxygen Delivery Method Room Air Room Air 05/28/23 22:16 05/29/23 00:01 05/29/23 00:24 Temperature Pulse Rate 74 62 Respiratory Rate 16 Blood Pressure 89/53 L 100/54 L 96/55 L Pulse Oximetry 94 Oxygen Delivery Method Room Air 05/29/23 00:26 05/29/23 00:31 Temperature Pulse Rate 71 80 Respiratory Rate Blood Pressure 110/55 L 118/72 Pulse Oximetry Oxygen Delivery Method BMI result Body Mass Index 27.1 Appearance: Alert. Oriented X3. No acute distress. Eyes: Pupils equal, round and reactive to light. ENT: Pharynx normal. Neck: Normal inspection. Neck supple. CVS: irregular heart rate and rhythm. Pulses normal. Respiratory: No respiratory distress. Breath sounds normal. Abdomen: Soft and nontender. Skin: Skin warm and dry. Normal skin color. Normal skin turgor. Extremities: No lower extremity edema. Neuro: Oriented X 3. No motor deficit. No sensory deficit. Course Course Course Narrative: This is a rapid medical exam: Additional HPI, ROS, PE not included below will be deferred to primary provider. Patient is a 73-year-old female with history of persistent afib on Eliquis, GERD, HTN, hypothyroid, asthma, stroke, anxiety, ascending aortic aneurism presenting to the ED with complaint of chest pain. States she woke with the pain at 4am Thursday morning. Pain has been intermittent, but worsened Thursday night. Thursday am was pain-free, was able to go to an appointment for a facial. Complains of pain increasing with laying supine. Current pain is 3/10. Plan: EKG, labs, CXR, viral swabs Reevaluation(s) Reevaluation #1: at this time hypotension could be due to dehydration and not infection or severe sepsis Reevaluation #2: patient is completely asymptomatic with her BPs she is very talkative has no symptoms no dizziness. H/H remains stable. HR in 70s afib, lactic acid negative urine is concentrated it could also be that she does not need some of her BP medications is currently on metoprolol succinate 50mg daily verapamil 120mg daily lisinopril 20mg/HCTZ 12.5mg daily may need to hold BP medications - will likely stop the combo drug and metoprolol UA is positive at this time possible infection suspected though I do not suspect this is the cause of her hypotension I do believe it is medication related 1207am IV ceftriaxone ordered negative orthostatic VS Reevaluation #3: focused exam for sepsis performed 2am Medications Administered Discontinued Medications Generic Name Dose Route Start Last Admin Trade Name Freq PRN Reason Stop Dose Admin Sodium Chloride 1,000 mls @ 999 mls/hr 05/28/23 22:15 05/29/23 00:01 Ns IV 05/28/23 23:15 Infused .Q1H1M CORY Infusion Sodium Chloride 1,000 mls @ 999 mls/hr 05/28/23 23:15 05/29/23 00:30 Ns IV 05/29/23 00:15 Infused .Q1H1M CORY Infusion Sodium Chloride 500 mls @ 500 mls/hr 05/28/23 23:15 05/29/23 00:30 Ns IV 05/29/23 00:14 Infused .Q1H [facility]ORY Infusion Ceftriaxone Sodium 1 gm/ 50 mls @ 100 mls/hr 05/29/23 00:08 05/29/23 00:28 Sodium Chloride IV 05/29/23 00:37 100 mls/hr ONCE ONE Administration Iohexol 70 ml 05/28/23 22:57 05/28/23 22:58 Iohexol 350 Mg/Ml 100 Ml Infus..Btl IV 05/28/23 22:58 70 ml ONCE ONE Administration Medical Decision Making Medical Decision Making [facility] Narrative: 73 yo female with PMH of afib on eliquis, thoracic aortic aneurysm 4.1cm, UTI, HTN, here with episode of resolved chest pain that started Thursday no symptoms all day yesterday or today is here because her PCP made her - trop flat, EKG unchanged from 2021 her BP is low but no symptoms she is not dizzy and wants to eat. At this time will repeat troponin, check lactic acid, repeat CBC and obtain UA. I am going to also obtain CTA to evaluate her aorta. She denies any symptoms or infectious symptoms. Had resolved diarrhea. Differential Diagnosis Differential Diagnoses: The differential diagnosis associated with the presentation includes dehydration, anemia, atypical chest pain, ACS, aortic aneurysm, viral syndrome, laryngitis Admission/Observation Consideration of admission/observation: Escalation of care including admission/observation considered given hypotension and UTI will admit for further workup and possible med management Consult Healthcare Provider Management of the patient was discussed with: Hospitalist (will admit) Lab Data [facility] Lab Attestation statement: I reviewed the patient's lab results. trop flat x 2 05/28/23 23:25 05/28/23 19:43 Labs: Lab Results 05/28/23 05/28/23 05/28/23 Range/Units 19:43 22:14 23:25 WBC 8.9 7.6 (4.8-10.8) X10*3/uL RBC 4.82 4.48 (4.20-5.50) X10*6/uL Hgb 13.6 12.9 (12.0-16.0) g/dl Hct 42.4 41.3 (37.0-47.0) % MCV 88.0 92.2 (80.0-98.0) fL MCH 28.2 28.8 (27.0-33.0) pg MCHC 32.1 31.2 (31.0-35.0) g/dl RDW 14.0 14.1 (11.0-16.0) % Plt Count 230 191 (160-400) X10*3/uL MPV 9.2 L 9.6 (9.4-12.3) fL Immature Gran % (Auto) 0.2 (0.0-0.4) % Neut % (Auto) 62.8 (45-73) % Lymph % (Auto) 21.9 (20-40) % [place] % (Auto) 12.0 H (2-11) % Eos % (Auto) 2.8 (0-4) % Baso % (Auto) 0.3 (0-2) % Lymph # (Auto) 1.9 (1.2-4.9) X10*3/uL [place] # (Auto) 1.1 (0.1-1.2) X10*3/uL Eos # (Auto) 0.3 (0.0-0.4) X10*3/uL Baso # (Auto) 0.0 (0.0-0.2) X10*3/uL Abs Immat Gran (auto) 0.02 (0.00-0.03) X10*3/uL Absolute Neuts (auto) 5.6 (2.0-8.3) x10*3/uL Absolute Nucleated RBC 0.000 0.000 (0.0-0.012) X10*3/uL Nucleated RBC % (auto) 0.0 0.0 (0.0-0.2) /100WBC PT 31.1 H (11.1-13.3) SEC INR 2.6 H (0.9-1.1) Sodium 139 (135-145) mmol/L Potassium 3.7 (3.3-5.1) mmol/L Chloride 97 (96-108) mmol/L Carbon Dioxide 32 H (22-29) mmol/L Anion Gap 14 (12-20) BUN 38 H (9-16) mg/dL Creatinine 1.27 (0.5-1.4) mg/dL Estim Creat Clear Calc 39.9 Estimated GFR 41 Random Glucose 112 (60-115) mg/dL Lactic Acid 1.2 (0.5-2.0) mmol/L Calcium 10.4 H (8.4-10.2) mg/dL Magnesium 1.9 (1.6-2.6) mg/dL Total Bilirubin 0.6 (0.0-1.0) mg/dL AST 14 (5-31) U/L ALT 12 (0-31) U/L Alkaline Phosphatase 96 (39-117) U/L Troponin I High Sens 3.1 2.9 (<3.5-17.0) ng/L Total Protein 7.3 (6.5-8.0) g/dL Albumin 3.7 (3.5-5.0) g/dL TSH 0.62 (0.32-4.0) uIU/mL Urine Color Urine Appearance Urine pH (5.0-9.0) Ur Specific [place] (1.005-1.025) Urine Protein (Neg-Trace) mg/dL Urine Glucose (UA) (Negative) mg/dL Urine Ketones (Negative) mg/dL Urine Blood (Negative) Urine Nitrite (Negative) Ur Leukocyte Esterase (Negative) Urine RBC (0-2) /HPF Urine WBC (0-5) /HPF Ur Squamous Epith Cells (0-2) /HPF Urine Bacteria (None Seen) Hyaline Casts (0-2) /LPF Influenza Type A (PCR) NEGATIVE (Negative) Influenza Type B (PCR) NEGATIVE (Negative) RSV RNA Qual (PCR) NEGATIVE (Negative) SARS-CoV-2 RNA (RT-PCR) NEGATIVE (Negative) 05/28/23 Range/Units 23:36 WBC (4.8-10.8) X10*3/uL RBC (4.20-5.50) X10*6/uL Hgb (12.0-16.0) g/dl Hct (37.0-47.0) % MCV (80.0-98.0) fL MCH (27.0-33.0) pg MCHC (31.0-35.0) g/dl RDW (11.0-16.0) % Plt Count (160-400) X10*3/uL MPV (9.4-12.3) fL Immature Gran % (Auto) (0.0-0.4) % Neut % (Auto) (45-73) % Lymph % (Auto) (20-40) % [place] % (Auto) (2-11) % Eos % (Auto) (0-4) % Baso % (Auto) (0-2) % Lymph # (Auto) (1.2-4.9) X10*3/uL [place] # (Auto) (0.1-1.2) X10*3/uL Eos # (Auto) (0.0-0.4) X10*3/uL Baso # (Auto) (0.0-0.2) X10*3/uL Abs Immat Gran (auto) (0.00-0.03) X10*3/uL Absolute Neuts (auto) (2.0-8.3) x10*3/uL Absolute Nucleated RBC (0.0-0.012) X10*3/uL Nucleated RBC % (auto) (0.0-0.2) /100WBC PT (11.1-13.3) SEC INR (0.9-1.1) Sodium (135-145) mmol/L Potassium (3.3-5.1) mmol/L Chloride (96-108) mmol/L Carbon Dioxide (22-29) mmol/L Anion Gap (12-20) BUN (9-16) mg/dL Creatinine (0.5-1.4) mg/dL Estim Creat Clear Calc Estimated GFR Random Glucose (60-115) mg/dL Lactic Acid (0.5-2.0) mmol/L Calcium (8.4-10.2) mg/dL Magnesium (1.6-2.6) mg/dL Total Bilirubin (0.0-1.0) mg/dL AST (5-31) U/L ALT (0-31) U/L Alkaline Phosphatase (39-117) U/L Troponin I High Sens (<3.5-17.0) ng/L Total Protein (6.5-8.0) g/dL Albumin (3.5-5.0) g/dL TSH (0.32-4.0) uIU/mL Urine Color Yellow Urine Appearance Cloudy Urine pH 7.5 (5.0-9.0) Ur Specific [place] >= 1.030 H (1.005-1.025) Urine Protein Trace (Neg-Trace) mg/dL Urine Glucose (UA) Negative (Negative) mg/dL Urine Ketones Negative (Negative) mg/dL Urine Blood Negative (Negative) Urine Nitrite Negative (Negative) Ur Leukocyte Esterase Moderate (2+) H (Negative) Urine RBC 0-2 (0-2) /HPF Urine WBC >50 H (0-5) /HPF Ur Squamous Epith Cells 0-2 (0-2) /HPF Urine Bacteria 4+ (None Seen) Hyaline Casts 11-20 (0-2) /LPF Influenza Type A (PCR) (Negative) Influenza Type B (PCR) (Negative) RSV RNA Qual (PCR) (Negative) SARS-CoV-2 RNA (RT-PCR) (Negative) Independent Interpretation I performed an independent interpretation of an: EKG, Plain X-Ray (normal ) and CT Scan (aorta at baseline, no pneumonia) Interpretation: Rate: 70s Rhythm: afib [place]: left Normal QRS complex. ST T wave : inverted lateral and ant t waves no CHU qTC: normal prior studies: similar to 2021 The study has been interpreted contemporaneously by me. . Rate: 60s Rhythm: afib [place]: left Normal QRS complex. ST T wave : inverted lateral and ant t waves no CHU qTC: normal prior studies: no acute change The study has been interpreted contemporaneously by me. . Radiology Impression Discussion of test interpretation with radiology: I have reviewed the radiologist's reading. Independent Historian Clinical information obtained from an independent historian. History obtained from or confirmed by: Spouse External Record Review External record reviewed: Inpatient record and Office record Critical Care Time Critical Care Time Critical Care Time: Yes Total Critical Care Time: 40 Attestation: 2.5L of IVF for resuscitation, admission, review of records I attest to this time spent taking care of the patient Discharge Plan Discharge Clinical Impression: Atypical chest pain, Acute UTI, Acute hypotension Patient Disposition: Admitted As Inpatient Prescriptions: No Action triamcinolone acetonide 0.1 % cream 1 appl topical BID 7 Days Qty: 80 0RF Rx Instructions: Apply to the affected area twice a day for a week cyclobenzaprine 10 mg tablet 10 mg PO TID Qty: 10 0RF benzonatate 200 mg capsule 200 mg PO TID PRN (Reason: cough) Qty: 30 0RF codeine-guaifenesin 10-100 mg/5 mL liquid 10 ml PO Q6H PRN (Reason: cough) Qty: 237 0RF hydrocodone-acetaminophen 5-325 mg tablet 1 tab PO BID PRN (Reason: Pain) ondansetron HCl 4 mg tablet 1 tab PO BEDTIME gabapentin 400 mg capsule 1 cap PO QID kyslqsjjoj-ywxzzspdihbud-vcfb 50-325-40 mg tablet 1 tab PO DAILY PRN (Reason: Headache) Myrbetriq 25 mg tablet extended release 24 hr 1 tab PO DAILY metoprolol tartrate 25 mg Tablet 25 mg PO BID Qty: 60 0RF Protocol: Hold for SBP/HR < HOLD for SBP < : 90 HOLD for HR < : 60 Prempro 0.625-2.5 mg tablet 1 tab PO DAILY omeprazole 20 mg capsule,delayed release(DR/EC) 20 mg PO DAILY levothyroxine 50 mcg capsule 50 mcg PO DAILY Eliquis 5 mg tablet 5 mg PO BID atorvastatin 40 mg tablet 40 mg PO DAILY verapamil 120 mg capsule,ext rel. pellets 24 hr 120 mg PO DAILY
[2023-05-28 19:21] VITALS: BP 102/60; PULSE 82; RESP 16; TEMP 37.1; O2SAT 97; BMI 27.1
[2023-05-28 19:48] LABS: MANUAL DIFF FLAG NO
[2023-05-28 19:49] LABS: Basophils Percent Auto 0.3 % (0-2); Eosinophils Absolute Auto 0.3 X10*3/uL (0.0-0.4); Eosinophils Percent Auto 2.8 % (0-4); Hematocrit 42.4 % (37.0-47.0); Hemoglobin 13.6 g/dl (12.0-16.0); Imm Gran Abs Auto 0.02 X10*3/uL (0.00-0.03); Imm Gran Pct Auto 0.2 % (0.0-0.4); Lymphocytes Absolute Auto 1.9 X10*3/uL (1.2-4.9); Lymphocytes Percent Auto 21.9 % (20-40); Mean Corpuscular HGB Conc 32.1 g/dl (31.0-35.0); Mean Corpuscular Hemoglobin 28.2 pg (27.0-33.0); Mean Platelet Volume 9.2 fL (9.4-12.3); Monocytes Absolute Auto 1.1 X10*3/uL (0.1-1.2); Neutrophils Absolute Auto 5.6 x10*3/uL (2.0-8.3); Neutrophils Percent Auto 62.8 % (45-73); Platelet Count 230 X10*3/uL (160-400); Red Blood Count 4.82 X10*6/uL (4.20-5.50); White Blood Count 8.9 X10*3/uL (4.8-10.8)
[2023-05-28 19:54] LABS: INTERNATIONAL NORM RATIO 2.6 (0.9-1.1); Prothrombin Time 31.1 SEC (11.1-13.3)
[2023-05-28 20:04] LABS: Alanine Aminotransferase 12 U/L (0-31); Albumin Level 3.7 g/dL (3.5-5.0); Alkaline Phosphatase 96 U/L (39-117); Anion Gap 14 (12-20); Aspartate Amino Transferase 14 U/L (5-31); Bilirubin Total 0.6 mg/dL (0.0-1.0); Blood Urea Nitrogen 38 mg/dL (9-16); Calcium 10.4 mg/dL (8.4-10.2); Carbon Dioxide 32 mmol/L (22-29); Chloride 97 mmol/L (96-108); Creatinine Clr Calc Pharmacy 39.9; Estimated Glomerular Filt Rate 41; Glucose Random 112 mg/dL (60-115); Potassium 3.7 mmol/L (3.3-5.1); Sodium 139 mmol/L (135-145); Total Protein 7.3 g/dL (6.5-8.0)
[2023-05-28 20:10] LABS: Troponin-I High Sensitivity 3.1 ng/L (<3.5-17.0)
[2023-05-28 20:27] LABS: Influenza A PCR NEGATIVE (Negative); Influenza B PCR NEGATIVE (Negative); Resp Syncy Virus RNA Qual PCR NEGATIVE (Negative); SARS COV2 PCR INHOUSE NEGATIVE (Negative)
[2023-05-28 21:50] VITALS: BP 82/50; PULSE 84; RESP 18; TEMP 36.9; O2SAT 98
[2023-05-28 21:56] VITALS: BP 79/48
--- NOTE | 2023-05-28 22:05 | ECG_ITS ---
Test Reason : BLOOD PRESSURE Blood Pressure : / mmHG Vent. Rate : 064 BPM Atrial Rate : 000 BPM P-R Int : 000 ms QRS Dur : 098 ms QT Int : 432 ms P-R-T Axes : 000 -03 118 degrees QTc Int : 445 ms Atrial fibrillation Nonspecific T wave abnormality Abnormal ECG When compared with ECG of 28-MAY-2023 19:10, No significant changes seen Referred By: Kimberlyn Hicks Electronically Signed By:Matthew Ruiz
[2023-05-28] MEDS: 0.9 % Sodium Chloride 1,000 ML 999 ML IV ×2 (22:15→23:30)
[2023-05-28 22:16] VITALS: BP 89/53; PULSE 74; RESP 16; O2SAT 94
[2023-05-28 22:36] LABS: Lactic Acid 1.2 mmol/L (0.5-2.0)
[2023-05-28] MEDS: iohexoL 350 MG/ML 100 ML INFUS..BTL 70 ML IV (22:58)
[2023-05-28 22:59] LABS: Magnesium 1.9 mg/dL (1.6-2.6)
[2023-05-28 23:30] LABS: Hematocrit 41.3 % (37.0-47.0); Hemoglobin 12.9 g/dl (12.0-16.0); Mean Corpuscular HGB Conc 31.2 g/dl (31.0-35.0); Mean Corpuscular Hemoglobin 28.8 pg (27.0-33.0); Mean Corpuscular Volume 92.2 fL (80.0-98.0); Mean Platelet Volume 9.6 fL (9.4-12.3); Platelet Count 191 X10*3/uL (160-400); Red Blood Count 4.48 X10*6/uL (4.20-5.50); Red Cell Distribution Width 14.1 % (11.0-16.0); White Blood Count 7.6 X10*3/uL (4.8-10.8)
[2023-05-28] MEDS: 0.9 % Sodium Chloride 500 ML IV (23:30)
[2023-05-28 23:51] LABS: Appearance Urine Cloudy; Color Urine Yellow; Glucose Urine UA Negative (Negative); Leukocyte Esterase Urine Moderate (2+) (Negative); Nitrite Urine Negative (Negative); PH 7.5 (5.0-9.0); Specific Gravity - Urine >= 1.030 (1.005-1.025); UMIC TRIGGER UACC YES; Urine Blood Negative (Negative); Urine Ketones Negative (Negative); Urine Protein Trace mg/dL (Neg-Trace)
[2023-05-28 23:58] LABS: Troponin-I High Sensitivity 2.9 ng/L (<3.5-17.0)
[2023-05-29] VITALS (9 sets, daily range): BP systolic 96–148; BP diastolic 54–89; PULSE 62–92; RESP 16–20; TEMP 36.4–36.8; O2SAT 96–97
[2023-05-29 00:02] LABS: Bacteria Urine 4+ (None Seen); RBC Urine 0-2 /HPF (0-2); Squamous Epithelial Cell Urine 0-2 /HPF (0-2); UACC Culture Trigger YES; WBC Urine >50 /HPF (0-5)
[2023-05-29 00:17] LABS: TSH reflex Free T4 0.62 uIU/mL (0.32-4.0)
[2023-05-29] MEDS: cefTRIAXone sodium 1 GM in 0.9 % Sodium Chloride 50 ML IV (00:28)
--- NOTE | 2023-05-29 02:14 | P.HPHOSP_ITS ---
History of Present Illness Date of Service: 05/29/23 Attending physician on admission: Fausto Skinner Chief Complaint: Chest pain 2 days ago Mandie Gonzalez is a 73 years old woman with past medical history significant essential hypertension, GERD, hyperlipidemia, atrial fibrillation on Eliquis and hypothyroidism presented to the emergency department complaining of an episode of self-limited chest pain last Thursday. She did not report any other associated symptoms such as shortness on breath, cough, palpitations, nausea, vomiting, diarrhea or sweating. Patient decided to contact her primary care physician today and was instructed to go to the emergency department for evaluation. Patient denied any acute gastrointestinal or genitourinary symptoms. She denies tobacco smoking, alcohol abuse or illicit drug use. In the ED, she was found to have significant hypotension (lowest BP 79/48) without tachycardia. There is no fever or tachypnea. Her blood workup showed no leukocytosis, normal hemoglobin and no electrolyte imbalances. Bicarb is elevated. Her creatinine is 1.27 (it was 0.89). BUN is elevated. LFTs are normal and troponin is negative x2. TSH is normal. Viral testing is negative for RSV, COVID-19 and influenza. UA showed finding consistent with UTI EKG showed atrial fibrillation with normal ventricular response with nonspecific T- wave abnormalities. Chest CT showed no acute findings. Ascending aorta measuring 4.1 cm in diameter (similar to prior) and elevated right hemidiaphragm with adjacent atelectasis in the mid and lower lobes. ED tx: NS 2.5 L bolus, ceftriaxone 1 g IV Review of Systems 2 Review of Systems: All 12 systems were reviewed and normal except as noted in HPI. [facility], [facility] Medical History Persistent atrial fibrillation Primary osteoarthritis involving multiple joints Anxiety GERD (gastroesophageal reflux disease) Carpal tunnel syndrome Stroke Hypothyroidism Arthritis HTN (hypertension) Asthma Obesity Chronic pain Family History Father CVD (cardiovascular disease) Diabetes Mother CVD (cardiovascular disease) HTN (hypertension) Surgical History History of left shoulder replacement History of right shoulder replacement S/P panniculectomy Hx of cholecystectomy S/P foot surgery, right History of bladder surgery History of tonsillectomy Social History Household Members: Family Housing: House Do you presently have visiting nurse or other home services: No Unable to assess alcohol history related to: Unknown Alcohol intake: never Patient Tobacco Use Status: Never used Tobacco Smoked in Last 30 Days: No e-Cigarette/Vaping Use: Never Used Use of substances other than those prescribed or required for medical reasons: No Advance Directives: No Advance Directives Information Provided: No service: No Current occupational status: retired Meds Allergies Allergy/AdvReac Type Severity Reaction Status Date / Time No Known Allergies Allergy Mild N/A Verified 07/11/22 22:21 Active Medications: Current Medications Acetaminophen (Acetaminophen 325 Mg Tablet) 650 mg PO Q6H PRN PRN Reason: Headache Heparin Sodium (Porcine) (Heparin Sodium,Porcine 5,000 Unit/Ml Vial) 5,000 unit SUBCUT Q12H CORY Sodium Chloride (Ns) 1,000 mls @ 100 mls/hr IVCONT .Q10H CORY Sodium Chloride (0.9 % Sodium Chloride Flush 3 Ml Syringe) 3 ml IVFLUSH QSHIFT CORY Home Medications Medication Instructions Recorded Confirmed Last Taken Type apixaban 5 mg tablet (Eliquis) 5 mg PO BID 03/27/20 05/29/23 1 Day Ago History ~05/28/23 atorvastatin 40 mg tablet 40 mg PO BEDTIME 03/27/20 05/29/23 1 Day Ago History ~05/28/23 conj estrogen-medroxyprogesterone 1 tab PO DAILY 03/27/20 12/17/21 05/18/21 History 0.625 mg-2.5 mg tablet (Prempro) levothyroxine 50 mcg capsule 50 mcg PO DAILY 03/27/20 12/17/21 05/18/21 History omeprazole 20 mg capsule,delayed 20 mg PO DAILY 03/27/20 12/17/21 05/18/21 History release verapamil 120 mg 24 hr 120 mg PO DAILY 03/27/20 12/17/21 05/18/21 History capsule,extended release [id number]-[id number]-[id number] 1 tab PO DAILY PRN Headache 05/13/21 12/17/21 05/18/21 History 50 mg-325 mg-40 mg tablet gabapentin 400 mg capsule 1 cap PO QID 05/13/21 05/29/2305/18/22 History hydrocodone 5 mg-acetaminophen 325 1 tab PO BID PRN Pain 05/13/21 12/17/21 05/18/21 History mg tablet mirabegron 25 mg tablet,extended 1 tab PO DAILY 05/13/21 12/17/21 05/18/21 History release 24 hr (Myrbetriq) ondansetron HCl 4 mg tablet 1 tab PO BEDTIME 05/13/21 12/17/21 05/18/21 History levothyroxine 50 mcg tablet 50 mcg PO DAILY 05/29/23 05/29/23 Unknown History lisinopril 20 1 tab PO DAILY 05/29/23 05/29/23 Unknown History mg-hydrochlorothiazide 12.5 mg tablet mirabegron 25 mg tablet,extended 25 mg PO DAILY 05/29/23 05/29/23 Unknown History release 24 hr (Myrbetriq) Physical Exam 2 Vital Signs and Narrative: Vital Signs: Last Vital Signs Temp 98.5 F 05/28/23 21:50 Pulse 80 05/29/23 00:31 Resp 16 05/28/23 22:16 BP 118/72 05/29/23 00:31 Pulse Ox 94 05/28/23 22:16 O2 Del Method Room Air 05/28/23 22:16 BMI result Body Mass Index 27.1 Constitutional - Awake and Alert, No apparent distress. Pleasant. Cooperative HEENT - Pupils equally round. Normal sclerae. Oral mucosa Heart - irregular. Normal rate. Lungs - Normal lung expansion, Normal respiratory effort, No respiratory distress, CTA bilaterally Gastrointestinal - NT / ND; +BS; No rebound or guarding Extremities - no calf tenderness bilaterally, no swelling Musculoskeletal - Normal inspection, normal ROM Skin - Warm/Dry Neurological - Alert & oriented x3. No focal weakness grossly noted. Normal speech. Psychological - Appropriate affect Results Labs 05/28/23 23:25 05/28/23 19:43 Labs: Laboratory Results - last 24 hr 05/28/23 05/28/23 05/28/23 19:43 22:14 23:25 MCV 88.0 92.2 MCH 28.2 28.8 MCHC 32.1 31.2 RDW 14.0 14.1 Plt Count 230 191 MPV 9.2 L 9.6 Immature Gran % (Auto) 0.2 Neut % (Auto) 62.8 Lymph % (Auto) 21.9 [place] % (Auto) 12.0 H Eos % (Auto) 2.8 Baso % (Auto) 0.3 Lymph # (Auto) 1.9 [place] # (Auto) 1.1 Eos # (Auto) 0.3 Baso # (Auto) 0.0 Abs Immat Gran (auto) 0.02 Absolute Neuts (auto) 5.6 Absolute Nucleated RBC 0.000 0.000 Nucleated RBC % (auto) 0.0 0.0 PT 31.1 H INR 2.6 H Anion Gap 14 Estim Creat Clear Calc 39.9 Estimated GFR 41 Random Glucose 112 Lactic Acid 1.2 Calcium 10.4 H Magnesium 1.9 Total Bilirubin 0.6 AST 14 ALT 12 Alkaline Phosphatase 96 Troponin I High Sens 3.1 2.9 Total Protein 7.3 Albumin 3.7 TSH 0.62 Urine Color Urine Appearance Urine pH Ur Specific [place] Urine Protein Urine Glucose (UA) Urine Ketones Urine Blood Urine Nitrite Ur Leukocyte Esterase Urine RBC Urine WBC Ur Squamous Epith Cells Urine Bacteria Hyaline Casts Influenza Type A (PCR) NEGATIVE Influenza Type B (PCR) NEGATIVE RSV RNA Qual (PCR) NEGATIVE SARS-CoV-2 RNA (RT-PCR) NEGATIVE 05/28/23 23:36 MCV MCH MCHC RDW Plt Count MPV Immature Gran % (Auto) Neut % (Auto) Lymph % (Auto) [place] % (Auto) Eos % (Auto) Baso % (Auto) Lymph # (Auto) [place] # (Auto) Eos # (Auto) Baso # (Auto) Abs Immat Gran (auto) Absolute Neuts (auto) Absolute Nucleated RBC Nucleated RBC % (auto) PT INR Anion Gap Estim Creat Clear Calc Estimated GFR Random Glucose Lactic Acid Calcium Magnesium Total Bilirubin AST ALT Alkaline Phosphatase Troponin I High Sens Total Protein Albumin TSH Urine Color Yellow Urine Appearance Cloudy Urine pH 7.5 Ur Specific [place] >= 1.030 H Urine Protein Trace Urine Glucose (UA) Negative Urine Ketones Negative Urine Blood Negative Urine Nitrite Negative Ur Leukocyte Esterase Moderate (2+) H Urine RBC 0-2 Urine WBC >50 H Ur Squamous Epith Cells 0-2 Urine Bacteria 4+ Hyaline Casts 11-20 Influenza Type A (PCR) Influenza Type B (PCR) RSV RNA Qual (PCR) SARS-CoV-2 RNA (RT-PCR) Imaging Radiologist's Impressions: Impressions Chest X-Ray 05/28/23 19:30 IMPRESSION: Elevated right hemidiaphragm with right basilar atelectasis. Stable findings. Rest of lungs are clear Chest CTA 05/28/23 22:59 IMPRESSION: 1. No acute findings identified in the chest. Ascending aorta measures approximately 4.1 cm in diameter, similar to prior. 2. Elevated right hemidiaphragm with adjacent atelectasis in the middle and lower lobes. 3. Coronary artery calcifications. Correlation with cardiac risk factors is recommended. Assessment and Plan (1) Acute hypotension: Status: Acute (2) Acute UTI: Status: Acute (3) Atypical chest pain: Status: Acute (4) Essential hypertension: Status: Acute (5) Persistent atrial fibrillation: Status: Acute Plan Mandie Gonzalez is a 73 years old woman admitted with: * Hypotension. Likely secondary to hypertensive agents: Lisinopril, hydrochlorothiazide, verapamil and metoprolol. Doubt sepsis: No tachycardia, no fever, no leukocytosis and no lactic acidosis. Admit to hospitalist service. Continue IV fluids. Hold antihypertensive meds for now. Blood cultures were obtained -will follow results. * UTI. UC (05/04/23) grew E. coli susceptible to ceftriaxone. Continue ceftriaxone. UC obtained -will follow results. * Event of chest pain 2 days ago. Troponin negative x2. EKG showed no ischemia. Chest CTA showed no acute abnormality. * Ascending aortic aneurysm (4.1 cm), similar to prior. Evaluated by Dr. Jeramie Damian, cardiology (November 2020). Patient needs follow up for this as an outpatient. * Atrial fibrillation, rate control. Will restart metoprolol if BP allows. Continue Eliquis. * Hypothyroidism. Continue levothyroxine. * Hyperlipidemia. Continue statin * Essential hypertension. Anti-HTN meds on hold due to event of hypotension. DVT prophylaxis: On Eliquis Code status: Full Patient will need hospitalization for at least 2 midnights for hypotension treatment with close vital signs monitoring and IV fluids. Quality Stroke Does the patient have a stroke diagnosis?: No VTE Prior VTE?: No VTE Risk Level:: Medical - moderate - high VTE Device Contraindication: Treatment Not Indicated VTE Drug Contraindication: N/A - Med Ordered
--- NOTE | 2023-05-29 02:22 | MHC.EDTECH ---
external cath placed at this time.
[2023-05-29] MEDS: Atorvastatin Calcium 40 MG TABLET PO ×2 (03:48→22:26)
[2023-05-29] MEDS: Apixaban 5 MG TABLET PO ×3 (03:48→22:26)
[2023-05-29] MEDS: Gabapentin 400 MG CAPSULE PO ×5 (03:48→22:26)
[2023-05-29] MEDS: Acetaminophen 325 MG TABLET 650 MG PO (03:49)
[2023-05-29] MEDS: 0.9 % Sodium Chloride 1,000 ML 100 ML IVCONT ×2 (03:51→14:13)
[2023-05-29 05:49] LABS: MANUAL DIFF FLAG NO
[2023-05-29 05:53] LABS: Basophils Percent Auto 0.2 % (0-2); Eosinophils Absolute Auto 0.3 X10*3/uL (0.0-0.4); Eosinophils Percent Auto 3.2 % (0-4); Hemoglobin 11.5 g/dl (12.0-16.0); Imm Gran Abs Auto 0.04 X10*3/uL (0.00-0.03); Imm Gran Pct Auto 0.5 % (0.0-0.4); Lymphocytes Absolute Auto 1.5 X10*3/uL (1.2-4.9); Lymphocytes Percent Auto 17.6 % (20-40); Mean Corpuscular HGB Conc 31.9 g/dl (31.0-35.0); Mean Corpuscular Hemoglobin 28.5 pg (27.0-33.0); Mean Corpuscular Volume 89.1 fL (80.0-98.0); Mean Platelet Volume 9.7 fL (9.4-12.3); Monocytes Absolute Auto 1.5 X10*3/uL (0.1-1.2); Neutrophils Absolute Auto 5.3 x10*3/uL (2.0-8.3); Neutrophils Percent Auto 61.5 % (45-73); Platelet Count 176 X10*3/uL (160-400); Red Blood Count 4.04 X10*6/uL (4.20-5.50); Red Cell Distribution Width 14.1 % (11.0-16.0); White Blood Count 8.5 X10*3/uL (4.8-10.8)
[2023-05-29 06:25] LABS: Alanine Aminotransferase 10 U/L (0-31); Alkaline Phosphatase 85 U/L (39-117); Anion Gap 11 (12-20); Aspartate Amino Transferase 15 U/L (5-31); Bilirubin Total 0.5 mg/dL (0.0-1.0); Blood Urea Nitrogen 36 mg/dL (9-16); Calcium 8.9 mg/dL (8.4-10.2); Carbon Dioxide 27 mmol/L (22-29); Chloride 107 mmol/L (96-108); Creatinine Clr Calc Pharmacy 50.2; Estimated Glomerular Filt Rate 53; Glucose Random 83 mg/dL (60-115); Potassium 3.7 mmol/L (3.3-5.1); Sodium 141 mmol/L (135-145); Total Protein 5.7 g/dL (6.5-8.0)
--- NOTE | 2023-05-29 07:00 | CA_ITS ---
Transthoracic Echocardiogram Patient (Last, First, Middle): Mandie Gonzalez I Gender: Female Date of : 1950 Age: 73 Procedure Date: 05/29/2023 Procedure Type: Transthoracic Echocardiogram Location: ER Height: 167.64 cm Weight: 76.2 kg BSA: 1.86 m2 Heart Rate: bpm BP: 131 / 89 mmHg [employer]: TO Referring MD: Roslyn Montero MD Symptoms: Chest pain Study Quality: Fair/Contrast Conclusions: - Normal left ventricular size and systolic function. There is mildly increased left ventricular wall thickness. The visually estimated ejection fraction is between 60-65%. - Mildly increased right ventricular cavity size. There is normal right ventricular systolic function. - There is mild dilatation of the ascending aorta measuring 4.30 cm. Findings Procedure Information Contrast agent, definity, is being given per protocol without apparent complications. Left Ventricle Normal left ventricular size and systolic function. There is mildly increased left ventricular wall thickness. The visually estimated ejection fraction is between 60-65%. There is no evidence of regional wall motion abnormalities. Diastolic function is indeterminate on the basis of available data. Right Ventricle Mildly increased right ventricular cavity size. There is normal right ventricular systolic function. Atria The left atrium is moderately dilated. Aortic Valve There is a normal trileaflet aortic valve. Mitral Valve The mitral valve appears normal. There is trace mitral valve regurgitation. There is no mitral valve stenosis. Pulmonic Valve Normal pulmonic valve structure and function. There is no pulmonic valve regurgitation. Tricuspid Valve Normal tricuspid valve structure. There is trace tricuspid valve regurgitation. Normal right atrial pressure. There is no evidence of pulmonary hypertension. Great Vessels There is mild dilatation of the ascending aorta measuring 4.30 cm. The visualized portions of the pulmonary artery and branches are normal. Venous The inferior vena cava is normal in size and collapses greater than 50% with inspiration. Pericardium/Pleural There is no evidence of pericardial effusion. Prior Study Comparison Changes noted compared to prior study dated: 03/27/2021. RV appears mildly dilated. ascending aorta 4.3 cm. Measurements 2D Linear Measurements IVSd: 1.23 0.6-0.9/0.6-1.0 cm LVIDd: 4.54 3.9-5.3/4.2-5.9 cm LVIDd Index: 2.44 2.4-3.2/2.2-3.1 cm/m2 LVIDs: 3.05 2.0-3.6 cm LVPWd: 0.91 0.7-1.1 cm LA Diam: 3.80 2.7-3.8/3.0-4.0 cm LAIDs Index: 2.04 1.5-2.3 cm/m2 LV Mass: 212.12 67-162/88-224 g LV Mass Index: 114.05 43-95/49-115 g/m2 LVOT Diam: 2.20 3.0+(-)1.3 cm 2D Systolic Function EF 4C: 56.40 >55% EF 2C: 60.00 >55% EF BiP: 57.60 >55% Mitral Valve MV Pk E: 0.91 MV Decel Time: 152.00 E'Lateral: 9.37 E'Medial: 6.17 E/E' Med: 14.70 E/E' Lat: 9.70 PHT: 45.00 MVA PHT: 4.89 Decel [place]: 6.03 Aortic Valve AoV Pk Kend[place]: 0.94 AoV Pk Grad: 4.00 LVOT LVOT Pk Kendrick: 0.73 LVOT Mn Kendrick: 0.52 LVOT VTI: 0.14 LVOT Pk Grad: 2.00 LVOT Mn Grad: 1.00 LVOT Diam: 2.20 LVOT Area: 3.80 Diastolic Function MV Pk E: 0.91 E'Medial: 6.17 E/E' Med: 14.70 E' Laterial: 9.37 E/E' Lat: 9.70 Right Ventricle TAPSE (mm): 17.20 TVS' Kendrick: 11.70 Tricuspid Valve TR Pk Kendrick: 2.20 TR Pk Grad: 19.00 RA Press: 8.00 RVSP: 27.00 Great Vessels Aorta Sinus of Valsalva: 3.50 2.0-3.[address] [place]: 2.76 1.7-3.4 cm Ao Asc: 4.30 2.1-3.4 cm Ao Arch: 3.10 Updated in Other Vendor System with Status of Final Matthew Ruiz MD electronically signed on 05/29/2023 11:32:37 AM with status of Final
--- NOTE | 2023-05-29 07:14 | PC.NURSE ---
Addendum entered by Ainsley Morejon 05/29/23 08:23: patient stating that she has been using wheelchair while in ER, however at home she uses a walker or a cane. Original Note: patient awake, alert and oriented with even and unlabored respirations. requesting to go home from the ER at this time, aware that she will be speaking to hospitalists at some point and to have this discussion with them. able to stand and pivot herself onto commode with one assist, says she primarily uses a wheelchair and has a bad back.
--- NOTE | 2023-05-29 08:10 | PHA.MEDREC ---
Addendum entered by Sandrita Dotson [facility] 05/29/23 08:22: Sent message to dr. powell that med rec is complete 05/29/23 @0823 Original Note: Pharmacy Consult ? Medication Reconciliation Pharmacy has completed the medication reconciliation. Spoke with patient in ED who knew all of her medications. Patient reports only taking vicodin BID if needed, she takes her gabapentin 2 capsules in AM and 2 capsules in PM and she is not taking Paroxetine.
[2023-05-29] MEDS: Levothyroxine Sodium 50 MCG TABLET PO (08:55)
--- NOTE | 2023-05-29 09:05 | PC.NURSE ---
medicated per the MAR, patient now reporting chest pain similar to what brought her into the ED. tearful and anxious appearing at this time. cardiology and hospitalist now at bedside.
--- NOTE | 2023-05-29 09:46 | P.CONCA_ITS ---
History of Present Illness History of Present Illness Date of Service: 05/29/23 Requesting physician: Roslyn Montero Chief complaint: Hypotension Narrative: 73-year-old female who is presenting to the hospital with complaint of chest pain that happened on Thursday. She said she woke up with severe left-sided crushing chest pain. She said she went back to sleep and woke up and did not have any further discomfort on Thursday. Yesterday she called our office and was advised to go to the emergency department for further workup. She has not had further chest discomfort. She has known history of atypical chest pains in the past. She also has atrial fibrillation and previous CVA. She has been on apixaban. In the ER she was noticed to be hypotensive and antihypertensive medications were held. She was also diagnosed with UTI and is currently taking antibiotics. She is quite emotional and stressed. Even during the interview she almost had a panic attack and was complaining of chest discomfort during that. ECG reviewed which is showing atrial fibrillation 72 beats per minute, normal axis, incomplete right bundle-branch block, nonspecific T-wave changes. [facility] Past Medical History Medical History Persistent atrial fibrillation Primary osteoarthritis involving multiple joints Anxiety GERD (gastroesophageal reflux disease) Carpal tunnel syndrome Stroke Hypothyroidism Arthritis HTN (hypertension) Asthma Obesity Chronic pain Family History Family History Father CVD (cardiovascular disease) Diabetes Mother CVD (cardiovascular disease) HTN (hypertension) Surgical History Surgical History History of left shoulder replacement History of right shoulder replacement S/P panniculectomy Hx of cholecystectomy S/P foot surgery, right History of bladder surgery History of tonsillectomy Social History Social History Household Members: Family Housing: House Do you presently have visiting nurse or other home services: No Unable to assess alcohol history related to: Unknown Alcohol intake: never Patient Tobacco Use Status: Never used Tobacco Smoked in Last 30 Days: No e-Cigarette/Vaping Use: Never Used Use of substances other than those prescribed or required for medical reasons: No Advance Directives: No Advance Directives Information Provided: No Nutrition Risks: No Nutritional Risk service: No Current occupational status: retired Meds Allergies Allergy/AdvReac Type Severity Reaction Status Date / Time No Known Allergies Allergy Mild N/A Verified 07/11/22 22:21 Active Medications: Current Medications Acetaminophen (Acetaminophen 325 Mg Tablet) 650 mg PO Q6H PRN PRN Reason: Headache Last Admin: 05/29/23 03:49 Dose: 650 mg Acetaminophen/Butalbital/Caffeine (Butalb/Acetamin/Caff 50/325/40 Tablet) 1 tab PO Q6H PRN PRN Reason: Migraine Headache Apixaban (Apixaban 5 Mg Tablet) 5 mg PO BID [facility] Last Admin: 05/29/23 08:56 Dose: 5 mg Atorvastatin Calcium (Atorvastatin Calcium 40 Mg Tablet) 40 mg PO BEDTIME [facility] Last Admin: 05/29/23 03:48 Dose: 40 mg Gabapentin (Gabapentin 400 Mg Capsule) 400 mg PO QID [facility] Last Admin: 05/29/23 08:56 Dose: 400 mg Sodium Chloride (Ns) 1,000 mls @ 100 mls/hr IVCONT .Q10H [facility] Last Admin: 05/29/23 03:51 Dose: 100 mls/hr Levothyroxine Sodium (Levothyroxine Sodium 50 Mcg Tablet) 50 mcg PO DAILY@0630 [facility] Last Admin: 05/29/23 08:55 Dose: 50 mcg Metoprolol Succinate (Metoprolol Succinate Er 25 Mg Tab.Er.24h) 25 mg PO DAILY [facility]; Protocol Mirabegron (Mirabegron 25 Mg Tab.Er.24h) 25 mg PO DAILY [facility] Omeprazole (Omeprazole 20 Mg Capsule.Dr) 20 mg PO DAILY@0630 [facility] Sodium Chloride (0.9 % Sodium Chloride Flush 3 Ml Syringe) 3 ml IVFLUSH QSHIFT [facility] Last Admin: 05/29/23 08:56 Dose: Not Given Home Medications Medication Instructions Recorded Confirmed Last Taken Type apixaban 5 mg tablet (Eliquis) 5 mg PO BID 03/27/20 05/29/23 05/28/23 History atorvastatin 40 mg tablet 40 mg PO BEDTIME 03/27/20 05/29/23 05/28/23 History conj estrogen-medroxyprogesterone 1 tab PO DAILY 03/27/20 05/29/23 05/28/23 History 0.625 mg-2.5 mg tablet (Prempro) omeprazole 20 mg capsule,delayed 20 mg PO DAILY@0630 03/27/20 05/29/23 05/28/23 History release verapamil 120 mg 24 hr 120 mg PO DAILY 03/27/20 05/29/23 05/28/23 History capsule,extended release [id number]-hqwoyfsl 1 tab PO Q6H PRN Migraine Headache 05/13/21 05/29/23 05/18/21 History 50 mg-325 mg-40 mg tablet gabapentin 400 mg capsule 2 cap PO BID 05/13/21 05/29/23 05/28/23 History hydrocodone 5 mg-acetaminophen 325 1 tab PO BID PRN Pain (Scale Score 05/13/21 05/29/23 05/18/21 History mg tablet 4-6) ondansetron HCl 4 mg tablet 1 tab PO BEDTIME PRN Nausea And 05/13/21 05/29/23 05/18/21 History Vomiting albuterol sulfate 90 mcg/actuation 2 puff inhalation Q4-6H PRN 05/29/23 05/29/23 05/28/23 History aerosol inhaler Shortness Of Breath Or Wheezing levothyroxine 50 mcg tablet 50 mcg PO DAILY@0630 05/29/23 05/29/23 05/28/23 History lisinopril 20 1 tab PO DAILY 05/29/23 05/29/23 05/28/23 History mg-hydrochlorothiazide 12.5 mg tablet metoprolol succinate 50 mg 50 mg PO DAILY 05/29/23 05/29/23 05/28/23 History tablet,extended release 24 hr mirabegron 25 mg tablet,extended 25 mg PO DAILY 05/29/23 05/29/23 05/28/23 History release 24 hr (Myrbetriq) Physical Exam 2 Vital Signs: Vital Signs: Last Vital Signs Temp 98.3 F 05/29/23 09:01 Pulse 92 05/29/23 09:01 Resp 16 05/29/23 09:01 BP 131/89 05/29/23 09:01 Pulse Ox 96 05/29/23 09:01 O2 Del Method Room Air 05/29/23 09:01 BMI result Body Mass Index 27.1 GENERAL APPEARANCE: Emotional and tearful. NECK: no carotid bruit, no jugular venous distention. SKIN: no suspicious lesions, warm and dry. HEART: no murmurs, regular rate and rhythm. LUNGS: clear to auscultation bilaterally. Left-sided chest wall tenderness. ABDOMEN: soft, nontender. EXTREMITIES: no edema. PERIPHERAL PULSES: equal. NEUROLOGIC: No gross deficits, AAO X 3 Objective Labs and Meds 05/29/23 05:17 05/29/23 05:17 Lab results: Laboratory Results - last 24 hr 05/28/23 05/28/23 05/28/23 19:43 22:14 23:25 WBC 8.9 7.6 RBC 4.82 4.48 Hgb 13.6 12.9 Hct 42.4 41.3 MCV 88.0 92.2 MCH 28.2 28.8 MCHC 32.1 31.2 RDW 14.0 14.1 Plt Count 230 191 MPV 9.2 L 9.6 Immature Gran % (Auto) 0.2 Neut % (Auto) 62.8 Lymph % (Auto) 21.9 [place] % (Auto) 12.0 H Eos % (Auto) 2.8 Baso % (Auto) 0.3 Lymph # (Auto) 1.9 [place] # (Auto) 1.1 Eos # (Auto) 0.3 Baso # (Auto) 0.0 Abs Immat Gran (auto) 0.02 Absolute Neuts (auto) 5.6 Absolute Nucleated RBC 0.000 0.000 Nucleated RBC % (auto) 0.0 0.0 PT 31.1 H INR 2.6 H Sodium 139 Potassium 3.7 Chloride 97 Carbon Dioxide 32 H Anion Gap 14 BUN 38 H Creatinine 1.27 Estim Creat Clear Calc 39.9 Estimated GFR 41 Random Glucose 112 Lactic Acid 1.2 Calcium 10.4 H Magnesium 1.9 Total Bilirubin 0.6 AST 14 ALT 12 Alkaline Phosphatase 96 Troponin I High Sens 3.1 2.9 Total Protein 7.3 Albumin 3.7 TSH 0.62 Urine Color Urine Appearance Urine pH Ur Specific [place] Urine Protein Urine Glucose (UA) Urine Ketones Urine Blood Urine Nitrite Ur Leukocyte Esterase Urine RBC Urine WBC Ur Squamous Epith Cells Urine Bacteria Hyaline Casts Influenza Type A (PCR) NEGATIVE Influenza Type B (PCR) NEGATIVE RSV RNA Qual (PCR) NEGATIVE SARS-CoV-2 RNA (RT-PCR) NEGATIVE 05/28/23 05/29/23 23:36 05:17 WBC 8.5 RBC 4.04 L Hgb 11.5 L Hct 36.0 L MCV 89.1 MCH 28.5 MCHC 31.9 RDW 14.1 Plt Count 176 MPV 9.7 Immature Gran % (Auto) 0.5 H Neut % (Auto) 61.5 Lymph % (Auto) 17.6 L [place] % (Auto) 17.0 H Eos % (Auto) 3.2 Baso % (Auto) 0.2 Lymph # (Auto) 1.5 [place] # (Auto) 1.5 H Eos # (Auto) 0.3 Baso # (Auto) 0.0 Abs Immat Gran (auto) 0.04 H Absolute Neuts (auto) 5.3 Absolute Nucleated RBC 0.000 Nucleated RBC % (auto) 0.0 PT INR Sodium 141 Potassium 3.7 Chloride 107 Carbon Dioxide 27 Anion Gap 11 L BUN 36 H Creatinine 1.01 Estim Creat Clear Calc 50.2 Estimated GFR 53 Random Glucose 83 Lactic Acid Calcium 8.9 D Magnesium Total Bilirubin 0.5 AST 15 ALT 10 Alkaline Phosphatase 85 Troponin I High Sens Total Protein 5.7 L Albumin 3.0 L TSH Urine Color Yellow Urine Appearance Cloudy Urine pH 7.5 Ur Specific [place] >= 1.030 H Urine Protein Trace Urine Glucose (UA) Negative Urine Ketones Negative Urine Blood Negative Urine Nitrite Negative Ur Leukocyte Esterase Moderate (2+) H Urine RBC 0-2 Urine WBC >50 H Ur Squamous Epith Cells 0-2 Urine Bacteria 4+ Hyaline Casts 11-20 Influenza Type A (PCR) Influenza Type B (PCR) RSV RNA Qual (PCR) SARS-CoV-2 RNA (RT-PCR) Imaging Radiologist's impression: Impressions Chest X-Ray 05/28/23 19:30 IMPRESSION: Elevated right hemidiaphragm with right basilar atelectasis. Stable findings. Rest of lungs are clear Chest CTA 05/28/23 22:59 IMPRESSION: 1. No acute findings identified in the chest. Ascending aorta measures approximately 4.1 cm in diameter, similar to prior. 2. Elevated right hemidiaphragm with adjacent atelectasis in the middle and lower lobes. 3. Coronary artery calcifications. Correlation with cardiac risk factors is recommended. Assessment and Plan (1) Acute UTI: Status: Acute (2) Acute hypotension: Status: Acute (3) Chest pain: Status: Acute Plan Pleasant 73-year-old female who has background of stroke and atrial fibrillation on chronic anticoagulation with apixaban 5 mg twice a day. She is presenting with sudden onset left-sided chest discomfort that happened on Thursday night. High sensitivity troponin levels are 3.1 and 2.9. Her EKG has chronic AFib as before which is rate controlled but does have some T-wave inversions which are nonspecific appearing. She is quite emotional and stressed. She has not had any further chest discomfort. She also was diagnosed with UTI and had hypotension in the ER and is currently off her antihypertensive medications. Blood pressure has recovered back to normal at this stage. Increase metoprolol back to home dose of Toprol-XL at 50 mg daily. Would hold lisinopril and hydrochlorothiazide for now. If blood pressure continues to be stable then verapamil can be resumed too by tomorrow. Will do echocardiography to rule out any wall motion abnormality. If echo is normal then we will pursue stress testing potentially on Thursday. Thank you for allowing me to participate in the care of your patient. Please feel free to contact me if you have any questions. Procedures Date of Service Date of Service: 05/29/23
--- NOTE | 2023-05-29 10:18 | MHC.CM.PN ---
IMM 05/29/23, Pt lives with S.O., she has home health services from [facility] for housekeeping and she has spoken to her patient case coordinator there to request an increase in services to include personal care. She does not have VNA services, she has been to [facility] in the past ([facility] and [facility]). HCP to be completed and added to chart. PCP: Rai Francois, Medical equipment: walker, w/c, stair lift. S.O. can transport home upon DC. CM to follow and assist with DC plan.
[2023-05-29] MEDS: Mirabegron 25 MG TAB.ER.24H PO (12:15)
[2023-05-29] MEDS: Metoprolol Succinate ER 25 MG TAB.ER.24H PO (12:16)
--- NOTE | 2023-05-29 13:07 | P.PNIM_ITS ---
Subjective Subjective Date of Service: 05/29/23 Interval History: Seen and evaluated this morning Denies any fever or chills feels anxious and worried reporting reproducible chest pain Review of Systems Review of Systems: Yes all other systems are reviewed and are negative Physical Exam 2 Vital Signs: Vital Signs: Last Vital Signs Temp 98.3 F 05/29/23 09:01 Pulse 92 05/29/23 09:01 Resp 16 05/29/23 09:01 BP 131/89 05/29/23 09:01 Pulse Ox 96 05/29/23 09:01 O2 Del Method Room Air 05/29/23 09:01 BMI result Body Mass Index 27.1 Const: Other: Constitutional : Awake, interactive, not in distress Neck : Normal inspection, Supple Cardiovascular : irregular irregular, no JVP, no lower extremity edema Respiratory : good bilateral air entry, no crackles, wheezes or rhonchi Gastrointestinal: soft, lax, Normal bowel sounds, Non tender Skin : Warm, Dry Neurological : Alert & oriented x3, No focal deficit Objective Data Active Medications Acetaminophen (Acetaminophen 325 Mg Tablet) 650 mg PO Q6H PRN PRN Reason: Headache Last Admin: 05/29/23 03:49 Dose: 650 mg Documented By: MURIEL Acetaminophen/Butalbital/Caffeine (Butalb/Acetamin/Caff 50/325/40 Tablet) 1 tab PO Q6H PRN PRN Reason: Migraine Headache Apixaban (Apixaban 5 Mg Tablet) 5 mg PO BID [facility] Last Admin: 05/29/23 08:56 Dose: 5 mg Documented By: WONG Atorvastatin Calcium (Atorvastatin Calcium 40 Mg Tablet) 40 mg PO BEDTIME [facility] Last Admin: 05/29/23 03:48 Dose: 40 mg Documented By: MURIEL Gabapentin (Gabapentin 400 Mg Capsule) 400 mg PO QID [facility] Last Admin: 05/29/23 08:56 Dose: 400 mg Documented By: WONG Sodium Chloride (Ns) 1,000 mls @ 100 mls/hr IVCONT .Q10H [facility] Last Admin: 05/29/23 03:51 Dose: 100 mls/hr Documented By: MURIEL Levothyroxine Sodium (Levothyroxine Sodium 50 Mcg Tablet) 50 mcg PO DAILY@0630 [facility] Last Admin: 03/08/24 08:55 Dose: 50 mcg Documented By: WONG Metoprolol Succinate (Metoprolol Succinate Er 25 Mg Tab.Er.24h) 25 mg PO DAILY [facility]; Protocol Last Admin: 05/29/23 12:16 Dose: 25 mg Documented By: WONG Mirabegron (Mirabegron 25 Mg Tab.Er.24h) 25 mg PO DAILY [facility] Last Admin: 05/29/23 12:15 Dose: 25 mg Documented By: WONG Omeprazole (Omeprazole 20 Mg Capsule.Dr) 20 mg PO DAILY@0630 [facility] Sodium Chloride (0.9 % Sodium Chloride Flush 3 Ml Syringe) 3 ml IVFLUSH QSHIFT [facility] Last Admin: 05/29/23 08:56 Dose: Not Given Documented By: WONG Non-Admin Reason: IV Running Labs 05/29/23 05:17 05/29/23 05:17 Labs: Laboratory Results - last 24 hr 05/28/23 05/28/23 05/28/23 19:43 22:14 23:25 MCV 88.0 92.2 MCH 28.2 28.8 MCHC 32.1 31.2 RDW 14.0 14.1 Plt Count 230 191 MPV 9.2 L 9.6 Immature Gran % (Auto) 0.2 Neut % (Auto) 62.8 Lymph % (Auto) 21.9 [place] % (Auto) 12.0 H Eos % (Auto) 2.8 Baso % (Auto) 0.3 Lymph # (Auto) 1.9 [place] # (Auto) 1.1 Eos # (Auto) 0.3 Baso # (Auto) 0.0 Abs Immat Gran (auto) 0.02 Absolute Neuts (auto) 5.6 Absolute Nucleated RBC 0.000 0.000 Nucleated RBC % (auto) 0.0 0.0 PT 31.1 H INR 2.6 H Anion Gap 14 Estim Creat Clear Calc 39.9 Estimated GFR 41 Random Glucose 112 Lactic Acid 1.2 Calcium 10.4 H Magnesium 1.9 Total Bilirubin 0.6 AST 14 ALT 12 Alkaline Phosphatase 96 Troponin I High Sens 3.1 2.9 Total Protein 7.3 Albumin 3.7 TSH 0.62 Urine Color Urine Appearance Urine pH Ur Specific [place] Urine Protein Urine Glucose (UA) Urine Ketones Urine Blood Urine Nitrite Ur Leukocyte Esterase Urine RBC Urine WBC Ur Squamous Epith Cells Urine Bacteria Hyaline Casts Influenza Type A (PCR) NEGATIVE Influenza Type B (PCR) NEGATIVE RSV RNA Qual (PCR) NEGATIVE SARS-CoV-2 RNA (RT-PCR) NEGATIVE 05/28/23 05/29/23 23:36 05:17 MCV 89.1 MCH 28.5 MCHC 31.9 RDW 14.1 Plt Count 176 MPV 9.7 Immature Gran % (Auto) 0.5 H Neut % (Auto) 61.5 Lymph % (Auto) 17.6 L [place] % (Auto) 17.0 H Eos % (Auto) 3.2 Baso % (Auto) 0.2 Lymph # (Auto) 1.5 [place] # (Auto) 1.5 H Eos # (Auto) 0.3 Baso # (Auto) 0.0 Abs Immat Gran (auto) 0.04 H Absolute Neuts (auto) 5.3 Absolute Nucleated RBC 0.000 Nucleated RBC % (auto) 0.0 PT INR Anion Gap 11 L Estim Creat Clear Calc 50.2 Estimated GFR 53 Random Glucose 83 Lactic Acid Calcium 8.9 D Magnesium Total Bilirubin 0.5 AST 15 ALT 10 Alkaline Phosphatase 85 Troponin I High Sens Total Protein 5.7 L Albumin 3.0 L TSH Urine Color Yellow Urine Appearance Cloudy Urine pH 7.5 Ur Specific [place] >= 1.030 H Urine Protein Trace Urine Glucose (UA) Negative Urine Ketones Negative Urine Blood Negative Urine Nitrite Negative Ur Leukocyte Esterase Moderate (2+) H Urine RBC 0-2 Urine WBC >50 H Ur Squamous Epith Cells 0-2 Urine Bacteria 4+ Hyaline Casts 11-20 Influenza Type A (PCR) Influenza Type B (PCR) RSV RNA Qual (PCR) SARS-CoV-2 RNA (RT-PCR) Assessment and Plan (1) Acute hypotension: Status: Acute (2) Acute UTI: Status: Acute (3) Atypical chest pain: Status: Acute Plan Mandie Gonzalez is a 73 years old woman admitted with: # Hypotension. Likely secondary to hypertensive agents: improved Hold Lisinopril, hydrochlorothiazide, verapamil restart metoprolol DC IV fluids Blood cultures were obtained - follow results. # UTI. UC (05/04/23) grew E. coli susceptible to ceftriaxone. Continue ceftriaxone. UCx obtained -will follow results. # chest pain Troponin negative x2. EKG showed no ST\T wave abnormalities to suggest ischemia. Chest CTA showed no acute abnormality. to get an ECHO for OP follow up # Ascending aortic aneurysm (4.1 cm), similar to prior. Evaluated by Dr. Jeramie Damian, cardiology (November 2020). Patient needs follow up for this as an outpatient. # Atrial fibrillation, rate control. Continue metoprolol. Continue Eliquis. # Hypothyroidism. Continue levothyroxine. # Hyperlipidemia. Continue statin DVT prophylaxis: On Eliquis Code status: Full Patient will need hospitalization overnight for hypotension treatment with close vital signs monitoring and IV fluids pending final blood and urine cultures . Quality Stroke Does the patient have a stroke diagnosis?: No VTE Prior VTE?: No VTE Risk Level:: Medical - moderate - high VTE Device Contraindication: Treatment Not Indicated VTE Drug Contraindication: N/A - Med Ordered
[2023-05-29] MEDS: Butalb/Acetamin/Caff 50/325/40 TABLET 1 TAB PO ×2 (14:16→22:35)
--- NOTE | 2023-05-29 14:31 | PC.NURSE ---
continues to rest quietly in room. continues to ask when she will get bed upstairs/be discharged. remains able to stand and pivot w/ one assist onto commode. medicated per the MAR for headache. call tate remains within reach.
--- NOTE | 2023-05-29 17:50 | PC.NURSE ---
Assumed care of pt at 17:15, PT laying in bed, appears to be in no apparent distress. Offers no complaints @ this time. Sig other @ bedside. Call tate placed within reach.
--- NOTE | 2023-05-29 19:15 | PC.NURSE ---
Assumed care of pt. Pt deborah chairez, no acute distress at this time. Preparing for admission.
[2023-05-29] MEDS: 0.9 % Sodium Chloride Flush 3 ML SYRINGE IVFLUSH (22:36)
[2023-05-30] VITALS: BP 184/97; PULSE 81; RESP 20; TEMP 36.7; O2SAT 94
--- NOTE | 2023-05-30 | ECG_ITS ---
Test Reason : chest pain Blood Pressure : / mmHG Vent. Rate : 086 BPM Atrial Rate : 000 BPM P-R Int : 000 ms QRS Dur : 094 ms QT Int : 332 ms P-R-T Axes : 000 -14 085 degrees QTc Int : 397 ms Atrial fibrillation Incomplete right bundle branch block Nonspecific T wave abnormality Abnormal ECG When compared with ECG of 28-MAY-2023 22:26, No significant change was found Referred By: Matthew Ruiz Electronically Signed By:MONTSE VARGAS MD
[2023-05-30 03:27] VITALS: BP 125/75; PULSE 62; RESP 20; TEMP 37; O2SAT 96
[2023-05-30] MEDS: Levothyroxine Sodium 50 MCG TABLET PO (06:27)
[2023-05-30] MEDS: Omeprazole 20 MG CAPSULE.DR PO (06:27)
[2023-05-30 07:47] VITALS: BP 145/79; PULSE 84; RESP 20; TEMP 36.5; O2SAT 96
[2023-05-30 08:36] LABS: Hematocrit 36.3 % (37.0-47.0); Hemoglobin 11.5 g/dl (12.0-16.0); Mean Corpuscular HGB Conc 31.7 g/dl (31.0-35.0); Mean Corpuscular Hemoglobin 28.3 pg (27.0-33.0); Mean Corpuscular Volume 89.2 fL (80.0-98.0); Mean Platelet Volume 9.4 fL (9.4-12.3); Platelet Count 183 X10*3/uL (160-400); Red Blood Count 4.07 X10*6/uL (4.20-5.50); Red Cell Distribution Width 14.1 % (11.0-16.0); White Blood Count 5.4 X10*3/uL (4.8-10.8)
[2023-05-30 08:49] LABS: Anion Gap 9 (12-20); Blood Urea Nitrogen 19 mg/dL (9-16); Calcium 9.2 mg/dL (8.4-10.2); Carbon Dioxide 27 mmol/L (22-29); Chloride 109 mmol/L (96-108); Creatinine Clr Calc Pharmacy 73.4; Estimated Glomerular Filt Rate > 60; Glucose Random 111 mg/dL (60-115); Potassium 3.7 mmol/L (3.3-5.1); Sodium 141 mmol/L (135-145)
[2023-05-30] MEDS: Gabapentin 400 MG CAPSULE PO ×4 (09:56→21:00)
[2023-05-30] MEDS: 0.9 % Sodium Chloride Flush 3 ML SYRINGE IVFLUSH ×3 (09:56→21:00)
[2023-05-30] MEDS: Metoprolol Succinate ER 50 MG TAB.ER.24H PO (09:56)
[2023-05-30] MEDS: Apixaban 5 MG TABLET PO ×2 (09:56→21:00)
[2023-05-30] MEDS: Mirabegron 25 MG TAB.ER.24H PO (09:56)
--- NOTE | 2023-05-30 10:41 | P.PNIM_ITS ---
Subjective Subjective Date of Service: 05/30/23 Interval History: Seen and evaluated this morning blood pressure stable feels anxious no chest pain overnight Review of Systems Review of Systems: Yes all other systems are reviewed and are negative Physical Exam 2 Vital Signs: Vital Signs: Last Vital Signs Temp 97.7 F 05/30/23 07:47 Pulse 84 05/30/23 07:47 Resp 20 05/30/23 07:47 BP 145/79 H 05/30/23 07:47 Pulse Ox 96 05/30/23 07:47 O2 Del Method Room Air 05/30/23 07:47 BMI result Body Mass Index 27.1 Const: Other: Constitutional : Awake, interactive, not in distress Neck : Normal inspection, Supple Cardiovascular : irregular irregular, no JVP, no lower extremity edema Respiratory : good bilateral air entry, no crackles, wheezes or rhonchi Gastrointestinal: soft, lax, Normal bowel sounds, Non tender Skin : Warm, Dry Neurological : Alert & oriented x3, No focal deficit Objective Data Active Medications Acetaminophen (Acetaminophen 325 Mg Tablet) 650 mg PO Q6H PRN PRN Reason: Headache Last Admin: 05/29/23 03:49 Dose: 650 mg Documented By: MURIEL Acetaminophen/Butalbital/Caffeine (Butalb/Acetamin/Caff 50/325/40 Tablet) 1 tab PO Q6H PRN PRN Reason: Migraine Headache Last Admin: 05/29/23 22:35 Dose: 1 tab Documented By: AHMET Apixaban (Apixaban 5 Mg Tablet) 5 mg PO BID [facility] Last Admin: 05/30/23 09:56 Dose: 5 mg Documented By: NATHALY Atorvastatin Calcium (Atorvastatin Calcium 40 Mg Tablet) 40 mg PO BEDTIME [facility] Last Admin: 05/29/23 22:26 Dose: 40 mg Documented By: AHMET Gabapentin (Gabapentin 400 Mg Capsule) 400 mg PO QID [facility] Last Admin: 05/30/23 09:56 Dose: 400 mg Documented By: NATHALY Hydroxyzine HCl (Hydroxyzine Hcl 25 Mg Tablet) 25 mg PO Q8H PRN PRN Reason: anxiety/restlessness Levothyroxine Sodium (Levothyroxine Sodium 50 Mcg Tablet) 50 mcg PO DAILY@0630 [facility] Last Admin: 05/30/23 06:27 Dose: 50 mcg Documented By: AHMET Metoprolol Succinate (Metoprolol Succinate Er 50 Mg Tab.Er.24h) 50 mg PO DAILY [facility]; Protocol Last Admin: 05/30/23 09:56 Dose: 50 mg Documented By: NATHALY Mirabegron (Mirabegron 25 Mg Tab.Er.24h) 25 mg PO DAILY [facility] Last Admin: 05/30/23 09:56 Dose: 25 mg Documented By: NATHALY Omeprazole (Omeprazole 20 Mg Capsule.Dr) 20 mg PO DAILY@0630 [facility] Last Admin: 05/30/23 06:27 Dose: 20 mg Documented By: AHMET Sodium Chloride (0.9 % Sodium Chloride Flush 3 Ml Syringe) 3 ml IVFLUSH QSHIFT [facility] Last Admin: 05/30/23 09:56 Dose: 3 ml Documented By: NATHALY Verapamil HCl (Verapamil Hcl Sr 120 Mg Tablet.Er) 120 mg PO DAILY [facility]; Protocol Labs 05/30/23 08:22 05/30/23 08:22 Labs: Laboratory Results - last 24 hr 05/30/23 08:22 MCV 89.2 MCH 28.3 MCHC 31.7 RDW 14.1 Plt Count 183 MPV 9.4 Absolute Nucleated RBC 0.000 Nucleated RBC % (auto) 0.0 Anion Gap 9 L Estim Creat Clear Calc 73.4 Estimated GFR > 60 Random Glucose 111 Calcium 9.2 Microbiology Microbiology Results: Microbiology 05/29/23 Unknown Urine Culture - Preliminary Urine Catheterized - Forte Catheter Culture in progress. 05/28/23 22:16 Blood Culture - Preliminary Blood - Venous No growth after 24 hours. 05/28/23 22:16 Blood Culture - Preliminary Blood - Venous No growth after 24 hours. Assessment and Plan (1) Chest pain: Status: Acute (2) Acute hypotension: Status: Acute (3) Acute UTI: Status: Acute Plan Mandie Gonzalez is a 73 years old woman admitted with: # Hypotension, resolved Likely secondary to hypertensive agents: improved Hold Lisinopril, hydrochlorothiazide restart metoprolol and Verapamil Blood cultures were obtained - follow results. # UTI. UC (05/04/23) grew E. coli susceptible to ceftriaxone. Continue ceftriaxone. UCx obtained -will follow results. # chest pain Troponin negative x2. EKG showed no ST\T wave abnormalities to suggest ischemia. Chest CTA showed no acute abnormality. ECHO EF60% Stress test, Marzena-scan Thursday per Cardiology team # Ascending aortic aneurysm (4.1 cm), similar to prior. Evaluated by Dr. Jeramie Damian, cardiology (November 2020). Patient needs follow up for this as an outpatient. # Atrial fibrillation, rate control. Continue metoprolol. Continue Eliquis. # Hypothyroidism. Continue levothyroxine. # Hyperlipidemia. Continue statin DVT prophylaxis: On Eliquis Code status: Full Patient will need hospitalization overnight fo monitoring blood pressure pending Stress test on Thursday. Quality Stroke Does the patient have a stroke diagnosis?: No VTE Prior VTE?: No VTE Risk Level:: Medical - moderate - high VTE Device Contraindication: Treatment Not Indicated VTE Drug Contraindication: N/A - Med Ordered
[2023-05-30 10:58] VITALS: BP 119/88; PULSE 84; RESP 20; TEMP 36.9; O2SAT 98
[2023-05-30] MEDS: hydrOXYzine HCL 25 MG TABLET PO ×2 (11:10→21:00)
[2023-05-30] MEDS: VerapamiL HCL SR 120 MG TABLET.ER PO (11:10)
[2023-05-30 15:41] VITALS: BP 161/92; PULSE 78; RESP 17; TEMP 36.4; O2SAT 93
[2023-05-30 19:15] VITALS: BP 163/96; PULSE 86; RESP 16; TEMP 36.5; O2SAT 96
[2023-05-30] MEDS: Atorvastatin Calcium 40 MG TABLET PO (21:00)
[2023-05-30] MEDS: Butalb/Acetamin/Caff 50/325/40 TABLET 1 TAB PO (21:06)
[2023-05-31] VITALS (7 sets, daily range): BP systolic 134–150; BP diastolic 72–98; PULSE 69–93; RESP 16–20; TEMP 36.2–36.8; O2SAT 94–97
--- NOTE | 2023-05-31 | CA_ITS ---
Acquisition Time: 2023-06-01 08:37:45 Total Exercise Time: 00:02:00 Test Indications: CP Medications: EMAR Protocol: LEXISCAN Max HR: 101 BPM 69% of Pred: 145 BPM Max BP: 140/082 mmHG Max Work Load: 1.0 METS Phramacological stress test with Lexiscan injection while sitting, with mild SOB, no chest discomfort, without arrhythmias, with normotenisve response to injection, with nondiagnoisitic EKGs. Aminophylline 75mg IVP given to reverse Lexiscan. Nuclear images pending. Test reviewed with Dr. Barragan Referred By: Matthew Ruiz Overread By: Kay Monteiro
[2023-05-31] MEDS: Butalb/Acetamin/Caff 50/325/40 TABLET 1 TAB PO ×2 (06:38→22:24)
[2023-05-31] MEDS: Omeprazole 20 MG CAPSULE.DR PO (06:38)
[2023-05-31] MEDS: hydrOXYzine HCL 25 MG TABLET PO ×2 (06:39→15:31)
[2023-05-31] MEDS: Levothyroxine Sodium 50 MCG TABLET PO (06:39)
[2023-05-31] MEDS: 0.9 % Sodium Chloride Flush 3 ML SYRINGE IVFLUSH ×2 (08:05→15:34)
[2023-05-31] MEDS: Mirabegron 25 MG TAB.ER.24H PO (08:05)
[2023-05-31] MEDS: Metoprolol Succinate ER 50 MG TAB.ER.24H PO (08:06)
[2023-05-31] MEDS: Gabapentin 400 MG CAPSULE PO ×4 (08:06→22:24)
[2023-05-31] MEDS: Apixaban 5 MG TABLET PO ×2 (08:06→22:24)
[2023-05-31] MEDS: VerapamiL HCL SR 120 MG TABLET.ER PO (08:06)
--- NOTE | 2023-05-31 11:36 | P.PNCA_ITS ---
Subjective Subjective Date of Service: 05/31/23 Interval history: Seen examined at bedside. She is saying that within that he medications she is feeling better. EKG had shown some nonspecific T-wave changes which are new compared to before. No further chest discomfort. Physical Exam Vital Signs: Last Vital Signs Temp 98.1 F 05/31/23 10:58 Pulse 69 05/31/23 10:58 Resp 20 05/31/23 10:58 BP 141/78 H 05/31/23 10:58 Pulse Ox 95 05/31/23 10:58 O2 Del Method Room Air 05/31/23 10:58 BMI result Body Mass Index 27.1 GENERAL APPEARANCE: In no acute distress. NECK: no carotid bruit, no jugular venous distention. SKIN: no suspicious lesions, warm and dry. HEART: no murmurs, regular rate and rhythm. LUNGS: clear to auscultation bilaterally. Left-sided chest wall tenderness. ABDOMEN: soft, nontender. EXTREMITIES: no edema. PERIPHERAL PULSES: equal. NEUROLOGIC: No gross deficits, AAO X 3 Objective Labs and Meds 05/30/23 08:22 05/30/23 08:22 Progress Note: A&P Assessment and plan (1) Chest pain: Status: Acute Assessment and Plan: [age] year female who presented chest pain and noticed to be hypertensive the ER for tract infection. Her antihypertensive medication was stopped and she was given antibiotics. Echocardiography has not shown any wall motion abnormalities. She was quite stressed and anxious and has been on antianxiety treatment with improvement the chest discomfort and shortness of breath. She has some ECG changes. There is no wall motion echocardiography. We will arrange [facility] for tomorrow. Keep NPO after midnight. Thank you for allowing me to participate in the care of your patient. Please feel free to contact me if you have any questions. Time Spent With Patient Time: Total time managing care of this patient today ____ minutes. Progress Note: Quality Stroke Does the patient have a stroke diagnosis?: No Procedures Date of Service Date of Service: 05/31/23
[2023-05-31] MEDS: hydroCHLOROthiazide 12.5 MG TABLET PO (12:08)
--- NOTE | 2023-05-31 12:10 | HO.PM.IMPN ---
Subjective Subjective Date of Service: 05/31/23 Interval History: Seen and evaluated this morning blood pressure stable anxiety better controlled no chest pain overnight Review of Systems Review of Systems: Yes all other systems are reviewed and are negative Physical Exam Vital Signs: Vital Signs: Last Vital Signs Temp 98.1 F 05/31/23 10:58 Pulse 69 05/31/23 10:58 Resp 20 05/31/23 10:58 BP 141/78 H 05/31/23 10:58 Pulse Ox 95 05/31/23 10:58 O2 Del Method Room Air 05/31/23 10:58 BMI result Body Mass Index 27.1 Const: Other: Constitutional : Awake, interactive, not in distress Neck : Normal inspection, Supple Cardiovascular : irregular irregular, no JVP, no lower extremity edema Respiratory : good bilateral air entry, no crackles, wheezes or rhonchi Gastrointestinal: soft, lax, Normal bowel sounds, Non tender Skin : Warm, Dry Neurological : Alert & oriented x3, No focal deficit Objective Data Active Medications Acetaminophen (Acetaminophen 325 Mg Tablet) 650 mg PO Q6H PRN PRN Reason: Headache Last Admin: 05/29/23 03:49 Dose: 650 mg Documented By: MURIEL Acetaminophen/Butalbital/Caffeine (Butalb/Acetamin/Caff 50/325/40 Tablet) 1 tab PO Q6H PRN PRN Reason: Migraine Headache Last Admin: 05/31/23 06:38 Dose: 1 tab Documented By: LEON Apixaban (Apixaban 5 Mg Tablet) 5 mg PO BID [facility] Last Admin: 05/31/23 08:06 Dose: 5 mg Documented By: SHARMILA Atorvastatin Calcium (Atorvastatin Calcium 40 Mg Tablet) 40 mg PO BEDTIME [facility] Last Admin: 05/30/23 21:00 Dose: 40 mg Documented By: LEON Gabapentin (Gabapentin 400 Mg Capsule) 400 mg PO QID [facility] Last Admin: 05/31/23 08:06 Dose: 400 mg Documented By: SHARMILA Hydrochlorothiazide (Hydrochlorothiazide 12.5 Mg Tablet) 12.5 mg PO DAILY [facility]; Protocol Hydroxyzine HCl (Hydroxyzine Hcl 25 Mg Tablet) 25 mg PO Q8H PRN PRN Reason: anxiety/restlessness Last Admin: 05/31/23 06:39 Dose: 25 mg Documented By: LEON Levothyroxine Sodium (Levothyroxine Sodium 50 Mcg Tablet) 50 mcg PO DAILY@30 [facility] Last Admin: 05/31/23 06:39 Dose: 50 mcg Documented By: LEON Metoprolol Succinate (Metoprolol Succinate Er 50 Mg Tab.Er.24h) 50 mg PO DAILY [facility]; Protocol Last Admin: 05/31/23 08:06 Dose: 50 mg Documented By: SHARMILA Mirabegron (Mirabegron 25 Mg Tab.Er.24h) 25 mg PO DAILY [facility] Last Admin: 05/31/23 08:05 Dose: 25 mg Documented By: SHARMILA Omeprazole (Omeprazole 20 Mg Capsule.Dr) 20 mg PO DAILY@629 [facility] Last Admin: 05/31/23 06:38 Dose: 20 mg Documented By: LEON Sodium Chloride (0.9 % Sodium Chloride Flush 3 Ml Syringe) 3 ml IVFLUSH QSHIFT [facility] Last Admin: 05/31/23 08:05 Dose: 3 ml Documented By: SHARMILA Verapamil HCl (Verapamil Hcl Sr 120 Mg Tablet.Er) 120 mg PO DAILY [facility]; Protocol Last Admin: 05/31/23 08:06 Dose: 120 mg Documented By: SHARMILA Labs 05/30/23 08:22 05/30/23 08:22 Microbiology Microbiology Results: Microbiology 05/29/23 Unknown Urine Culture - Preliminary Urine Catheterized - Forte Catheter Gram negative alise 05/28/23 22:16 Blood Culture - Preliminary Blood - Venous No growth after 48 hours. 05/28/23 22:16 Blood Culture - Preliminary Blood - Venous No growth after 48 hours. Assessment and Plan (1) Chest pain: Status: Acute (2) Acute hypotension: Status: Acute (3) Acute UTI: Status: Acute (4) Atypical chest pain: Status: Acute Plan Mandie Gonzalez is a 73 years old woman admitted with: # Hypotension, resolved Likely secondary to hypertensive agents: improved Hold Lisinopril, restart hydrochlorothiazide restarted metoprolol and Verapamil Blood cultures were obtained - follow results. # UTI. UC (05/04/23) grew E. coli susceptible to ceftriaxone. Continue ceftriaxone. UCx growing GNR # chest pain Troponin negative x2. EKG showed no ST\T wave abnormalities to suggest ischemia but can see some others changes in T-waves Chest CTA showed no acute abnormality. ECHO EF60% Stress test, Marzena-scan tomorrow, NPO post midnight # Ascending aortic aneurysm (4.1 cm), similar to prior. Evaluated by Dr. Jeramie Damian, cardiology (November 2020). Patient needs follow up for this as an outpatient. # Atrial fibrillation, rate control. Continue metoprolol. Continue Eliquis. # Hypothyroidism. Continue levothyroxine. # Hyperlipidemia. Continue statin DVT prophylaxis: On Eliquis Code status: Full Patient will need hospitalization overnight fo monitoring blood pressure pending Stress test on Thursday. Quality Stroke Does the patient have a stroke diagnosis?: No VTE Prior VTE?: No VTE Risk Level:: Medical - moderate - high VTE Device Contraindication: Treatment Not Indicated VTE Drug Contraindication: N/A - Med Ordered
[2023-05-31] MEDS: Atorvastatin Calcium 40 MG TABLET PO (22:24)
[2023-06-01 03:51] VITALS: BP 167/92; PULSE 85; RESP 18; TEMP 37.1; O2SAT 96
[2023-06-01] MEDS: Levothyroxine Sodium 50 MCG TABLET PO (06:56)
[2023-06-01] MEDS: Omeprazole 20 MG CAPSULE.DR PO (06:56)
[2023-06-01 07:25] VITALS: BP 151/95; PULSE 82; RESP 20; TEMP 37.1; O2SAT 94
[2023-06-01] MEDS: Metoprolol Succinate ER 50 MG TAB.ER.24H PO (07:46)
[2023-06-01] MEDS: Gabapentin 400 MG CAPSULE PO ×4 (07:46→20:18)
[2023-06-01] MEDS: hydroCHLOROthiazide 12.5 MG TABLET PO (07:46)
[2023-06-01] MEDS: Apixaban 5 MG TABLET PO ×2 (07:46→20:18)
[2023-06-01] MEDS: VerapamiL HCL SR 120 MG TABLET.ER PO (07:46)
[2023-06-01] MEDS: Mirabegron 25 MG TAB.ER.24H PO (07:46)
[2023-06-01] MEDS: 0.9 % Sodium Chloride Flush 3 ML SYRINGE IVFLUSH ×3 (07:47→20:24)
[2023-06-01] MEDS: Acetaminophen 325 MG TABLET 650 MG PO ×2 (07:49→20:22)
[2023-06-01] MEDS: hydrOXYzine HCL 25 MG TABLET PO (10:53)
[2023-06-01] MEDS: Butalb/Acetamin/Caff 50/325/40 TABLET 1 TAB PO ×2 (10:53→18:10)
--- NOTE | 2023-06-01 10:53 | P.PNIM_ITS ---
Subjective Subjective Date of Service: 06/01/23 Interval History: Seen and evaluated this morning going for stress test anxiety better controlled no chest pain overnight Review of Systems Review of Systems: Yes all other systems are reviewed and are negative Physical Exam 2 Vital Signs: Vital Signs: Last Vital Signs Temp 98.7 F 06/01/23 07:25 Pulse 82 06/01/23 07:25 Resp 20 06/01/23 07:25 BP 151/95 H 06/01/23 07:25 Pulse Ox 94 06/01/23 07:25 O2 Del Method Room Air 06/01/23 07:25 BMI result Body Mass Index 27.1 Const: Other: Constitutional : Awake, interactive, not in distress Neck : Normal inspection, Supple Cardiovascular : irregular irregular, no JVP, no lower extremity edema Respiratory : good bilateral air entry, no crackles, wheezes or rhonchi Gastrointestinal: soft, lax, Normal bowel sounds, Non tender Skin : Warm, Dry Neurological : Alert & oriented x3, No focal deficit Objective Data Active Medications Acetaminophen (Acetaminophen 325 Mg Tablet) 650 mg PO Q6H PRN PRN Reason: Headache Last Admin: 06/01/23 07:49 Dose: 650 mg Documented By: SHARMILA Acetaminophen/Butalbital/Caffeine (Butalb/Acetamin/Caff 50/325/40 Tablet) 1 tab PO Q6H PRN PRN Reason: Migraine Headache Last Admin: 06/01/23 10:53 Dose: 1 tab Documented By: SHARMILA Apixaban (Apixaban 5 Mg Tablet) 5 mg PO BID [facility] Last Admin: 06/01/23 07:46 Dose: 5 mg Documented By: SHARMILA Atorvastatin Calcium (Atorvastatin Calcium 40 Mg Tablet) 40 mg PO BEDTIME [facility] Last Admin: 05/31/23 22:24 Dose: 40 mg Documented By: WILMER Gabapentin (Gabapentin 400 Mg Capsule) 400 mg PO QID [facility] Last Admin: 06/01/23 07:46 Dose: 400 mg Documented By: SHARMILA Hydrochlorothiazide (Hydrochlorothiazide 12.5 Mg Tablet) 12.5 mg PO DAILY [facility]; Protocol Last Admin: 06/01/23 07:46 Dose: 12.5 mg Documented By: SHARMILA Hydroxyzine HCl (Hydroxyzine Hcl 25 Mg Tablet) 25 mg PO Q8H PRN PRN Reason: anxiety/restlessness Last Admin: 06/01/23 10:53 Dose: 25 mg Documented By: SHARMILA Levothyroxine Sodium (Levothyroxine Sodium 50 Mcg Tablet) 50 mcg PO DAILY@0630 [facility] Last Admin: 06/01/23 06:56 Dose: 50 mcg Documented By: WILMER Metoprolol Succinate (Metoprolol Succinate Er 50 Mg Tab.Er.24h) 50 mg PO DAILY [facility]; Protocol Last Admin: 06/01/23 07:46 Dose: 50 mg Documented By: SHARMILA Mirabegron (Mirabegron 25 Mg Tab.Er.24h) 25 mg PO DAILY [facility] Last Admin: 06/01/23 07:46 Dose: 25 mg Documented By: SHARMILA Omeprazole (Omeprazole 20 Mg Capsule.Dr) 20 mg PO DAILY@0630 [facility] Last Admin: 06/01/23 06:56 Dose: 20 mg Documented By: WILMER Sodium Chloride (0.9 % Sodium Chloride Flush 3 Ml Syringe) 3 ml IVFLUSH QSHIFT [facility] Last Admin: 06/01/23 07:47 Dose: 3 ml Documented By: SHARMILA Verapamil HCl (Verapamil Hcl Sr 120 Mg Tablet.Er) 120 mg PO DAILY [facility]; Protocol Last Admin: 06/01/23 07:46 Dose: 120 mg Documented By: SHARMILA Labs 05/30/23 08:22 05/30/23 08:22 Microbiology Microbiology Results: Microbiology 05/29/23 Unknown Urine Culture - Final Urine Catheterized - Forte Catheter Escherichia coli Klebsiella pneumoniae Assessment and Plan (1) Acute hypotension: Status: Acute (2) Acute UTI: Status: Acute (3) Atypical chest pain: Status: Acute Plan Mandie Gonzalez is a 73 years old woman admitted with: # Hypotension, resolved Likely secondary to hypertensive agents: improved and now hypertensive restart Lisinopril, tolerating hydrochlorothiazide restarted metoprolol and Verapamil Blood cultures were obtained - follow results. # UTI. UC growing E.Coli and Klebsiella Continue ceftriaxone. (05/29) # chest pain Troponin negative x2. EKG showed no ST\T wave abnormalities to suggest ischemia but can see some others changes in T-waves Chest CTA showed no acute abnormality. ECHO EF60% Stress test, Marzena-scan today, might need a 2nd part of the test tomorrow cardiology following # Ascending aortic aneurysm (4.1 cm), similar to prior. Evaluated by Dr. Jeramie Damian, cardiology (November 2020). Patient needs follow up for this as an outpatient. # Atrial fibrillation, rate control. Continue metoprolol. Continue Eliquis. # Hypothyroidism. Continue levothyroxine. # Hyperlipidemia. Continue statin DVT prophylaxis: On Eliquis Code status: Full Patient will need hospitalization overnight fo monitoring blood pressure pending Stress test results and cardiology follow up Quality Stroke Does the patient have a stroke diagnosis?: No VTE Prior VTE?: No VTE Risk Level:: Medical - moderate - high VTE Device Contraindication: Treatment Not Indicated VTE Drug Contraindication: N/A - Med Ordered
--- NOTE | 2023-06-01 11:30 | PM.PNCARD ---
Subjective Subjective Date of Service: 06/01/23 Principal diagnosis: Chest pain Interval history: Patient undergoing myocardial perfusion imaging with vaso dilator today. Will most likely require 2 day testing. No current chest pain. Blood pressure is elevated. Heart rate is controlled Review of Systems Constitutional: Reports no additional constitutional complaints Physical Exam Vital Signs: Last Vital Signs Temp 98.7 F 06/01/23 07:25 Pulse 82 06/01/23 07:25 Resp 20 06/01/23 07:25 BP 151/95 H 06/01/23 07:25 Pulse Ox 94 06/01/23 07:25 O2 Del Method Room Air 06/01/23 07:25 BMI result Body Mass Index 27.1 GENERAL APPEARANCE: In no acute distress. NECK: no carotid bruit, no jugular venous distention. SKIN: no suspicious lesions, warm and dry. HEART: no murmurs, regular rate and rhythm. LUNGS: clear to auscultation bilaterally. Left-sided chest wall tenderness. ABDOMEN: soft, nontender. EXTREMITIES: no edema. PERIPHERAL PULSES: equal. NEUROLOGIC: No gross deficits, AAO X 3 Objective Labs and Meds 05/30/23 08:22 05/30/23 08:22 Progress Note: A&P Assessment and plan (1) Chest pain: Status: Acute Assessment and Plan: Chest pain with abnormal EKG. No clear evidence of myocardial injury. Vasodilating myocardial perfusion imaging today given her baseline atrial fibrillation and inability to exercise. Further treatment based on the finding. Require a 2 day test. Blood pressure is not elevated. Can resume metoprolol 25 mg daily. Continue other medications. Will follow with you Time Spent With Patient Time: Total time managing care of this patient today ____ minutes. Progress Note: Quality Stroke Does the patient have a stroke diagnosis?: No Procedures Date of Service Date of Service: 06/01/23
[2023-06-01 12:00] VITALS: BP 153/74; PULSE 81; RESP 20; TEMP 36.6; O2SAT 95
--- NOTE | 2023-06-01 12:29 | MHC.CM.PN ---
Pt has not been medically cleared for DC, she is due for further eval today (stress test). She will return home with prior services from [facility]. She declined PT eval. CM to follow and assist with DC plan.
[2023-06-01] MEDS: lisinopriL 20 MG TABLET PO (12:59)
[2023-06-01 15:12] VITALS: BP 128/80; PULSE 76; RESP 20; TEMP 37.1; O2SAT 95
[2023-06-01 19:11] VITALS: BP 133/79; PULSE 93; RESP 18; TEMP 36.1; O2SAT 96
[2023-06-01] MEDS: Atorvastatin Calcium 40 MG TABLET PO (20:18)
[2023-06-01 23:27] VITALS: BP 118/75; PULSE 77; RESP 18; TEMP 36.1; O2SAT 94
[2023-06-02 03:08] VITALS: BP 124/74; PULSE 71; RESP 18; TEMP 36.3; O2SAT 96
[2023-06-02] MEDS: Levothyroxine Sodium 50 MCG TABLET PO (06:03)
[2023-06-02] MEDS: Omeprazole 20 MG CAPSULE.DR PO (06:03)
[2023-06-02 07:35] VITALS: BP 135/90; PULSE 97; RESP 20; TEMP 36.6; O2SAT 96
[2023-06-02] MEDS: hydroCHLOROthiazide 12.5 MG TABLET PO (10:18)
[2023-06-02] MEDS: lisinopriL 20 MG TABLET PO (10:18)
[2023-06-02] MEDS: Mirabegron 25 MG TAB.ER.24H PO (10:18)
[2023-06-02] MEDS: VerapamiL HCL SR 120 MG TABLET.ER PO (10:18)
[2023-06-02] MEDS: Metoprolol Succinate ER 50 MG TAB.ER.24H PO (10:18)
[2023-06-02] MEDS: Apixaban 5 MG TABLET PO (10:18)
[2023-06-02] MEDS: Gabapentin 400 MG CAPSULE PO ×2 (10:19→13:56)
[2023-06-02] MEDS: 0.9 % Sodium Chloride Flush 3 ML SYRINGE IVFLUSH (10:19)
[2023-06-02] MEDS: hydrOXYzine HCL 25 MG TABLET PO (10:27)
[2023-06-02 11:15] VITALS: BP 141/66; PULSE 85; RESP 20; TEMP 36.7; O2SAT 98
--- NOTE | 2023-06-02 12:13 | P.CDIM_ITS ---
PROVIDER RESPONSE TEXT: To clarify, the appropriate diagnosis supported by the clinical indicators: Persistent atrial fibrillation: episodes of continuous AF that last more than 7 days and do not self- terminate QUERY TEXT: PHYSICIAN'S DOCUMENTATION REQUEST Date of Query: 06/01/2023 01:28 PM EDT Patient Name: Mandie Gonzalez I Admit Date: 05/29/2023 Dear Roslyn Montero, A review of the medical record indicates additional documentation may be needed. Please review below and update the documentation accordingly. Clinical Indicators: Cardiology note: atrial fibrillation on chronic anticoagulation with apixaban 5mg twice a day. Her EKG has chronic Afib as before which is rate controlled but does have some T-wave inversions whic h are nonspecific appearing. If possible, please provide further specifics regarding atrial fibrillation, such as: Paroxysmal atrial fibrillation: terminates spontaneously or with intervention within 7 days of onset Persistent atrial fibrillation: episodes of continuous AF that last more than 7 days and do not self- terminate Long lasting persistent atrial fibrillation: episodes of continuous AF that last more than 12 months Chronic or Permanent atrial fibrillation: when a decision has been made to accept the presence of AF and there is no further attempt to restore or maintain sinus rhythm Other (explain) Clinically unable to determine (explain) Thank you, Kadie Mauricio, CCS, CDIS Use of terms such as suspected, likely, concern for, or probable (associated with a specific diagnosi s that is being evaluated, monitored, or treated as if it exists) are acceptable and can be coded in the inpatient se tting, when documented at the time of discharge. Please use your independent medical judgment in providing your response. THIS QUERY IS PART OF THE PERMANENT MEDICAL RECORD
--- NOTE | 2023-06-02 12:23 | PM.PNCARD ---
Subjective Subjective Date of Service: 06/02/23 Principal diagnosis: Chest pain Interval history: No more chest pain. Blood pressure is better controlled. Myocardial perfusion imaging within normal limits Review of Systems Review of Systems Yes all other systems are reviewed and are negative Physical Exam Vital Signs: Last Vital Signs Temp 98.0 F 06/02/23 11:15 Pulse 85 06/02/23 11:15 Resp 20 06/02/23 11:15 BP 141/66 H 06/02/23 11:15 Pulse Ox 98 06/02/23 11:15 O2 Del Method Room Air 06/02/23 11:15 BMI result Body Mass Index 27.1 GENERAL APPEARANCE: In no acute distress. NECK: no carotid bruit, no jugular venous distention. SKIN: no suspicious lesions, warm and dry. HEART: no murmurs, regular rate and rhythm. LUNGS: clear to auscultation bilaterally. Left-sided chest wall tenderness. ABDOMEN: soft, nontender. EXTREMITIES: no edema. PERIPHERAL PULSES: equal. NEUROLOGIC: No gross deficits, AAO X 3 Objective Labs and Meds 05/30/23 08:22 05/30/23 08:22 Imaging Radiologist's impression: Impressions Myocardial Perfusion Scan Nuc Med 06/02/23 09:30 Impression: 1. Myocardial perfusion imaging study shows likely normal myocardial perfusion 2. Gated LVEF is 71% 3. Transient ischemic dilatation not present EKG is nondiagnostic for ischemia Progress Note: A&P Assessment and plan (1) Chest pain: Status: Acute Assessment and Plan: Chest pain without any evidence of high risk features with normal myocardial perfusion imaging. At this point time from cardiac perspective patient can be discharged home on her usual medications. Chest pain probably related to low blood pressure, unclear. Blood pressure, lower probably related to acute UTI and relative hypovolemia. Continue her usual antihypertensive medications. Patient can be discharged from cardiac perspective. Follow-up with PCP. Time Spent With Patient Time: Total time managing care of this patient today ____ minutes. Progress Note: Quality Stroke Does the patient have a stroke diagnosis?: No Procedures Date of Service Date of Service: 06/02/23
--- NOTE | 2023-06-02 12:36 | PM.DS ---
DS: Providers Provider Date of Service: 06/02/23 Date of admission: 05/29/23 02:07 Primary care physician: Rai Fabian MD Consults: 05/29/23 03:46 Consult to Cardiology Routine Consulting Provider: [facility] Reason for consultation: Chest pain Has provider been notified: Yes DS: Diagnosis Discharge Diagnosis (1) Chest pain: Status: Acute (2) Acute hypotension: Status: Acute (3) Acute UTI: Status: Acute (4) Atypical chest pain: Status: Acute DS: Summary Hospital Course Hospital Course: Admission note HPI Mandie Gonzalez is a 73 years old woman with past medical history significant essential hypertension, GERD, hyperlipidemia, atrial fibrillation on Eliquis and hypothyroidism presented to the emergency department complaining of an episode of self-limited chest pain last Thursday. She did not report any other associated symptoms such as shortness on breath, cough, palpitations, nausea, vomiting, diarrhea or sweating. Patient decided to contact her primary care physician today and was instructed to go to the emergency department for evaluation. Patient denied any acute gastrointestinal or genitourinary symptoms. She denies tobacco smoking, alcohol abuse or illicit drug use. In the ED, she was found to have significant hypotension (lowest BP 79/48) without tachycardia. There is no fever or tachypnea. Her blood workup showed no leukocytosis, normal hemoglobin and no electrolyte imbalances. Bicarb is elevated. Her creatinine is 1.27 (it was 0.89). BUN is elevated. LFTs are normal and troponin is negative x2. TSH is normal. Viral testing is negative for RSV, COVID-19 and influenza. UA showed finding consistent with UTI EKG showed atrial fibrillation with normal ventricular response with nonspecific T-wave abnormalities. Chest CT showed no acute findings. Ascending aorta measuring 4.1 cm in diameter (similar to prior) and elevated right hemidiaphragm with adjacent atelectasis in the mid and lower lobes. Hospital course # Hypotension on admission, resolved Likely secondary to hypertensive agents and having urine infection. Home meds held and gradually were restarted after her blood pressure improved with IV fluids usage. restarted Lisinopril, hydrochlorothiazide, metoprolol and Verapamil with good tolerance. lood cultures and remained negative. # UTI. UC growing sensitive E.Coli and Klebsiella. received ceftriaxone and will be discharged on Ceftin. # chest pain Troponin negative x2. EKG showed no ST\T wave abnormalities to suggest ischemia but can see some others changes in T-waves . Chest CTA showed no acute abnormality. ECHO EF60% with no WMA. She was seen by cardiology who did 2 parts Stress test that came back normal and recommended outpatient follow up as scheduled. She was seen by PT team who did not feel that she needs rehab or home PT. to be discharged home with family support. Continue Ceftin as prescribed for urine infection Increase physical activity as tolerated at home Follow with PCP as outpatient in 1-2 weeks Time Attestation Discharge Coordination Time (in mins): 38 Quality: Safe Use of Opioids Does Pt have an Active Cancer Diagnosis on the Problem List?: No Quality: Stroke Does the patient have a stroke diagnosis?: No Physical Exam Vital Signs: Vital Signs: Last Vital Signs Temp 98.0 F 06/02/23 11:15 Pulse 85 06/02/23 11:15 Resp 20 06/02/23 11:15 BP 141/66 H 06/02/23 11:15 Pulse Ox 98 06/02/23 11:15 O2 Del Method Room Air 06/02/23 11:15 BMI result Body Mass Index 27.1 Const: Other: Constitutional : Awake, interactive, not in distress Neck : Normal inspection, Supple Cardiovascular : irregular irregular, no JVP, no lower extremity edema Respiratory : good bilateral air entry, no crackles, wheezes or rhonchi Gastrointestinal: soft, lax, Normal bowel sounds, Non tender Skin : Warm, Dry Neurological : Alert & oriented x3, No focal deficit DS: Data Data Completed and Pending Labs on day of discharge: Preliminary micro results at discharge 05/28/23 22:16 Blood Culture - Preliminary Blood - Venous No growth after 48 hours. 05/28/23 22:16 Blood Culture - Preliminary Blood - Venous No growth after 48 hours. Imaging Chest x-ray: Radiologist's impression: ITS Impressions Chest X-Ray 05/28/23 19:30 IMPRESSION: Elevated right hemidiaphragm with right basilar atelectasis. Stable findings. Rest of lungs are clear Chest CTA 05/28/23 22:59 IMPRESSION: 1. No acute findings identified in the chest. Ascending aorta measures approximately 4.1 cm in diameter, similar to prior. 2. Elevated right hemidiaphragm with adjacent atelectasis in the middle and lower lobes. 3. Coronary artery calcifications. Correlation with cardiac risk factors is recommended. Myocardial Perfusion Scan Nuc Med 06/02/23 09:30 Impression: 1. Myocardial perfusion imaging study shows likely normal myocardial perfusion 2. Gated LVEF is 71% 3. Transient ischemic dilatation not present EKG is nondiagnostic for ischemia Discharge Plan Discharge Anticipated Discharge Date/Time: 06/02/23 12:30 Patient Disposition: Home, Self-Care Discharge Diagnosis: Urine infection Hypotension Chest pain Referrals: Rai Fabian MD [Primary Care Provider] - 1 Week Discharge Medications: New cefuroxime axetil 250 mg tablet 250 mg PO BID Qty: 9 0RF hydroxyzine HCl 25 mg Tablet 25 mg PO Q8H PRN (Reason: Anxiety/Restlessness) Qty: 20 0RF Continued hydrocodone-acetaminophen 5-325 mg tablet 1 tab PO BID PRN (Reason: Pain (Scale Score 4-6)) ondansetron HCl 4 mg tablet 1 tab PO BEDTIME PRN (Reason: Nausea And Vomiting) gabapentin 400 mg capsule 2 cap PO BID xrgydiwlkq-bnomottymvaby-weiu 50-325-40 mg tablet 1 tab PO Q6H PRN (Reason: Migraine Headache) levothyroxine 50 mcg tablet 50 mcg PO DAILY@0630 lisinopril-hydrochlorothiazide 20-12.5 mg tablet 1 tab PO DAILY Myrbetriq 25 mg tablet extended release 24 hr 25 mg PO DAILY metoprolol succinate 50 mg tablet extended release 24 hr 50 mg PO DAILY albuterol sulfate 90 mcg/actuation HFA aerosol inhaler 2 puff inhalation Q4-6H PRN (Reason: Shortness Of Breath Or Wheezing) Prempro 0.625-2.5 mg tablet 1 tab PO DAILY omeprazole 20 mg capsule,delayed release(DR/EC) 20 mg PO DAILY@0630 Eliquis 5 mg tablet 5 mg PO BID atorvastatin 40 mg tablet 40 mg PO BEDTIME verapamil 120 mg capsule,ext rel. pellets 24 hr 120 mg PO DAILY Discharge Orders: Discharge Order (Routine); Ordered 06/02/23 Ordered By: Roslyn Montero Diet: Advance to usual diet Activity on Discharge: As tolerated Stand Alone Forms: Patient Portal Discharge page Care Plan Goals: Read below Health Concerns: Read below Plan of Treatment: Read below Assessment: You were admitted for low blood pressure likely related to Urine infection and home medicaitons. improved with IV fluids, treating infection and restarting your hypertension medications gradually. You were also evaluated by cardiology with a stress test for reported chest pain. Stress testing looked normal. Continue Ceftin as prescribed for urine infection Increase physical activity as tolerated at home Follow with PCP as outpatient in 1-2 weeks Discharge Date/Time: 06/02/23 16:27
--- NOTE | 2023-06-02 13:05 | MHC.CM.PN ---
Second IMM 06/02/23, pt has been medically cleared for DC, she will go home via family transport and resume her home care services from [facility].
[2023-06-02] MEDS: cefuroxime axetiL 500 MG TABLET PO (13:56)
== END 2023-06-02 16:27 | disposition home or self-care (01) | DRG 312 ==
LOC: HO.ED 05-29 01:23 → HO.EDOVER 05-29 02:12 → HO.IMC 05-29 19:13
PROVIDERS: Registered Nurse Emergency; Admitting Provider Internal Medicine; Emergency Provider Emergency Medicine; PCP Internal Medicine; Visit Provider Student in an Organized Health Care Education/Training Program
DX: I95.2 Hypotension due to drugs (principal); I48.19 Other persistent atrial fibrillation; T46.4X5A Adverse effect of angiotensin-converting-enzyme inhibitors, initial encounter; E78.5 Hyperlipidemia, unspecified; I10 Essential (primary) hypertension; B96.20 Unspecified Escherichia coli [E. coli] as the cause of diseases classified elsewhere; B96.1 Klebsiella pneumoniae [K. pneumoniae] as the cause of diseases classified elsewhere; I71.21 Aneurysm of the ascending aorta, without rupture; E03.9 Hypothyroidism, unspecified; Z20.822 Contact with and (suspected) exposure to COVID-19; Z87.440 Personal history of urinary (tract) infections; Z86.73 Personal history of transient ischemic attack (TIA), and cerebral infarction without residual deficits; Z79.01 Long term (current) use of anticoagulants; Z79.890 Hormone replacement therapy; Z79.899 Other long term (current) drug therapy
CPT/HCPCS: 0241U; 36415; 71046; 71275; 78452; 80048; 80053; 81001; 83605; 83735; 84443; 84484; 85025; 85027; 85610; 87040; 87086; 87088; 87186; 93005; 93017; 93306; 97161; 99285; A9500; J0280; J0696; J2785; Q9957; Q9967

== ENCOUNTER → 2023-05-28 19:04 | Outpatient (BNV) | payer MEDICARE, SELFPAY | PROVIDERS: Admitting Provider Internal Medicine; Emergency Provider Emergency Medicine; PCP Internal Medicine; Visit Provider Internal Medicine Cardiovascular Disease | DX: I48.91 Unspecified atrial fibrillation (principal) | CPT/HCPCS: 93010 ==

== ENCOUNTER 2023-05-29 02:07 | Outpatient (BNV) | payer MEDICARE, SELFPAY | END 2023-05-30 10:29 | PROVIDERS: Admitting Provider Internal Medicine; Emergency Provider Emergency Medicine; PCP Internal Medicine; Visit Provider Internal Medicine Cardiovascular Disease | DX: I48.91 Unspecified atrial fibrillation (principal) | CPT/HCPCS: 93010 ==

== ENCOUNTER 2023-05-29 02:07 | Outpatient (BNV) | payer MEDICARE, SELFPAY | END 2023-05-31 | PROVIDERS: Admitting Provider Internal Medicine; Emergency Provider Emergency Medicine; PCP Internal Medicine; Visit Provider Nurse Practitioner | DX: R07.89 Other chest pain (principal); I48.19 Other persistent atrial fibrillation | CPT/HCPCS: 93016; 93018 ==

== ENCOUNTER 2023-05-29 02:07 | Outpatient (BNV) | payer MEDICARE, SELFPAY | END 2023-06-01 10:22 | PROVIDERS: Admitting Provider Internal Medicine; Emergency Provider Emergency Medicine; PCP Internal Medicine; Visit Provider Internal Medicine Cardiovascular Disease | DX: R07.89 Other chest pain (principal); I48.19 Other persistent atrial fibrillation | CPT/HCPCS: 78452 ==

== ENCOUNTER → 2023-05-29 02:07 | Outpatient (BNV) | payer MEDICARE, SELFPAY | PROVIDERS: Admitting Provider Internal Medicine; Emergency Provider Emergency Medicine; PCP Internal Medicine; Visit Provider Internal Medicine Cardiovascular Disease | DX: N39.0 Urinary tract infection, site not specified (principal); I95.9 Hypotension, unspecified; R07.9 Chest pain, unspecified | CPT/HCPCS: 93306; 99222; 99232; 99233 ==

== ENCOUNTER → 2023-05-29 02:07 | Outpatient (BNV) | payer MEDICARE, SELFPAY | PROVIDERS: Admitting Provider Internal Medicine; Emergency Provider Emergency Medicine; PCP Internal Medicine; Visit Provider Internal Medicine | DX: I95.9 Hypotension, unspecified (principal); N39.0 Urinary tract infection, site not specified; R07.89 Other chest pain | CPT/HCPCS: 99223; 99232; 99233; 99239; 99499 ==

== ENCOUNTER 2023-06-11 15:33 | Outpatient (REF) | payer MEDICARE, SELFPAY ==
[2023-06-11 15:40] LABS: MANUAL DIFF FLAG NO
[2023-06-11 15:49] LABS: Basophils Percent Auto 0.6 % (0-2); Eosinophils Absolute Auto 0.3 X10*3/uL (0.0-0.4); Hemoglobin 11.9 g/dl (12.0-16.0); Imm Gran Abs Auto 0.01 X10*3/uL (0.00-0.03); Imm Gran Pct Auto 0.1 % (0.0-0.4); Lymphocytes Absolute Auto 1.7 X10*3/uL (1.2-4.9); Lymphocytes Percent Auto 25.6 % (20-40); Mean Corpuscular HGB Conc 32.2 g/dl (31.0-35.0); Mean Corpuscular Hemoglobin 28.6 pg (27.0-33.0); Mean Corpuscular Volume 88.9 fL (80.0-98.0); Mean Platelet Volume 9.7 fL (9.4-12.3); Monocytes Absolute Auto 0.6 X10*3/uL (0.1-1.2); Monocytes Percent Auto 8.2 % (2-11); Neutrophils Absolute Auto 4.1 x10*3/uL (2.0-8.3); Neutrophils Percent Auto 61.5 % (45-73); Platelet Count 234 X10*3/uL (160-400); Red Blood Count 4.16 X10*6/uL (4.20-5.50); White Blood Count 6.7 X10*3/uL (4.8-10.8)
[2023-06-11 15:56] LABS: Blood Urea Nitrogen 18 mg/dL (9-16); Estimated Glomerular Filt Rate > 60
== END 2023-06-11 15:34 | disposition home or self-care (01) ==
LOC: HO.LNP 15:33
PROVIDERS: Visit Provider Internal Medicine
DX: D50.9 Iron deficiency anemia, unspecified (principal); R79.9 Abnormal finding of blood chemistry, unspecified
CPT/HCPCS: 82565; 84520; 85025

== ENCOUNTER 2023-06-18 | Outpatient (REF) | payer MEDICARE, SELFPAY ==
[2023-06-19 17:49] LABS: CDiff Gene PCR NEGATIVE (Negative)
[2023-06-19 20:16] LABS: Leukocytes Stool Qualitative NEGATIVE (NEGATIVE)
[2023-06-20 12:08] LABS: Adenovirus F 40/41 Not Detected (Not Detect.); Astrovirus Not Detected (Not Detect.); Campylobacter Not Detected (Not Detect.); Cryptosporidium Not Detected (Not Detect.); Cyclospora cayetanensis Not Detected (Not Detect.); E. coli EAEC Not Detected (Not Detect.); E. coli EPEC Not Detected (Not Detect.); E. coli ETEC Not Detected (Not Detect.); E. coli STEC Not Detected (Not Detect.); Entamoeba histolytica Not Detected (Not Detect.); Giardia lamblia Not Detected (Not Detect.); Norovirus GI/GII Not Detected (Not Detect.); Plesiomonas shigelloides Not Detected (Not Detect.); Rotavirus A Not Detected (Not Detect.); Salmonella Not Detected (Not Detect.); Sapovirus Not Detected (Not Detect.); Shigella sp./EIEC Not Detected (Not Detect.); Vibrio Not Detected (Not Detect.); Vibrio Cholerae Not Detected (Not Detect.); Yersinia enterocolitica Not Detected (Not Detect.)
== END 2023-06-18 00:01 | disposition home or self-care (01) ==
LOC: HO.LNP
PROVIDERS: Visit Provider Internal Medicine
DX: R19.7 Diarrhea, unspecified (principal); Z86.19 Personal history of other infectious and parasitic diseases
CPT/HCPCS: 87493; 87507; 89055

== ENCOUNTER 2023-07-02 15:13 | Outpatient (REF) | payer MEDICARE, SELFPAY ==
[2023-07-02 15:30] LABS: MANUAL DIFF FLAG NO
[2023-07-02 16:57] LABS: Basophils Absolute Auto 0.1 X10*3/uL (0.0-0.2); Basophils Percent Auto 0.7 % (0-2); Eosinophils Absolute Auto 0.2 X10*3/uL (0.0-0.4); Eosinophils Percent Auto 2.5 % (0-4); Hematocrit 36.4 % (37.0-47.0); Hemoglobin 11.6 g/dl (12.0-16.0); Imm Gran Abs Auto 0.02 X10*3/uL (0.00-0.03); Imm Gran Pct Auto 0.3 % (0.0-0.4); Lymphocytes Absolute Auto 1.4 X10*3/uL (1.2-4.9); Lymphocytes Percent Auto 18.5 % (20-40); Mean Corpuscular HGB Conc 31.9 g/dl (31.0-35.0); Mean Corpuscular Hemoglobin 28.4 pg (27.0-33.0); Monocytes Absolute Auto 0.8 X10*3/uL (0.1-1.2); Neutrophils Absolute Auto 5.1 x10*3/uL (2.0-8.3); Platelet Count 171 X10*3/uL (160-400); Red Blood Count 4.09 X10*6/uL (4.20-5.50); White Blood Count 7.5 X10*3/uL (4.8-10.8)
[2023-07-02 17:15] LABS: Alanine Aminotransferase 11 U/L (0-31); Albumin Level 3.6 g/dL (3.5-5.0); Alkaline Phosphatase 91 U/L (39-117); Anion Gap 13 (12-20); Aspartate Amino Transferase 23 U/L (5-31); Bilirubin Total 0.4 mg/dL (0.0-1.0); Blood Urea Nitrogen 15 mg/dL (9-16); Calcium 9.7 mg/dL (8.4-10.2); Carbon Dioxide 32 mmol/L (22-29); Chloride 98 mmol/L (96-108); Estimated Glomerular Filt Rate > 60; Glucose Random 89 mg/dL (60-115); Potassium 3.8 mmol/L (3.3-5.1); Sodium 139 mmol/L (135-145); Total Protein 6.6 g/dL (6.5-8.0)
== END 2023-07-02 15:14 | disposition home or self-care (01) ==
LOC: HO.LAB 15:13
PROVIDERS: Visit Provider Internal Medicine
DX: K92.1 Melena (principal)
CPT/HCPCS: 36415; 80053; 85025

== ENCOUNTER 2024-03-29 14:04 | Outpatient (REF) | payer MEDICARE, SELFPAY ==
--- NOTE | ~2024-03-29 | XR_ITS ---
CLINICAL HISTORY: SOB 2 view chest x-ray Comparison: None Findings: The lungs are clear. Normal size heart. No acute fracture. IMPRESSION: 1. No acute findings. This document has been electronically signed by: Olayinka Chowdary MD on 03/31/2024 19:01:41
== END 2024-03-29 14:05 | disposition home or self-care (01) ==
LOC: HO.XRAY 14:04
PROVIDERS: Visit Provider Internal Medicine
DX: R06.02 Shortness of breath (principal)
CPT/HCPCS: 71046

== ENCOUNTER → 2024-03-29 14:50 | Outpatient (BNV) | payer MEDICARE, SELFPAY | PROVIDERS: Visit Provider Specialist | DX: R06.02 Shortness of breath (principal) | CPT/HCPCS: 71046 ==

== ENCOUNTER 2024-04-08 07:36 | Outpatient (REF) | payer MEDICARE, SELFPAY ==
[2024-04-08 11:17] LABS: MANUAL DIFF FLAG NO
[2024-04-08 11:33] LABS: Basophils Absolute Auto 0.1 X10*3/uL (0.0-0.2); Basophils Percent Auto 0.8 % (0-2); Eosinophils Absolute Auto 0.2 X10*3/uL (0.0-0.4); Eosinophils Percent Auto 3.9 % (0-4); Hematocrit 36.2 % (37.0-47.0); Hemoglobin 10.9 g/dl (12.0-16.0); Imm Gran Abs Auto 0.02 X10*3/uL (0.00-0.03); Imm Gran Pct Auto 0.3 % (0.0-0.4); Lymphocytes Absolute Auto 1.7 X10*3/uL (1.2-4.9); Lymphocytes Percent Auto 27.9 % (20-40); Mean Corpuscular HGB Conc 30.1 g/dl (31.0-35.0); Mean Corpuscular Hemoglobin 25.5 pg (27.0-33.0); Mean Corpuscular Volume 84.6 fL (80.0-98.0); Mean Platelet Volume 11.2 fL (9.4-12.3); Monocytes Absolute Auto 0.8 X10*3/uL (0.1-1.2); Monocytes Percent Auto 13.3 % (2-11); Neutrophils Absolute Auto 3.4 x10*3/uL (2.0-8.3); Neutrophils Percent Auto 53.8 % (45-73); Platelet Count 211 X10*3/uL (160-400); Red Blood Count 4.28 X10*6/uL (4.20-5.50); Red Cell Distribution Width 13.9 % (11.0-16.0); White Blood Count 6.2 X10*3/uL (4.8-10.8)
[2024-04-08 11:35] LABS: Appearance Urine Cloudy; Color Urine Yellow; Glucose Urine UA Negative (Negative); Leukocyte Esterase Urine Moderate (2+) (Negative); Nitrite Urine Positive (Negative); UMIC TRIGGER UACC YES; Urine Blood Negative (Negative); Urine Ketones Negative (Negative); Urine Protein Trace mg/dL (Neg-Trace)
[2024-04-08 11:52] LABS: Alanine Aminotransferase 11 U/L (0-31); Albumin Level 3.8 g/dL (3.5-5.0); Alkaline Phosphatase 88 U/L (39-117); Anion Gap 13 (12-20); Aspartate Amino Transferase 29 U/L (5-31); Bilirubin Total 0.5 mg/dL (0.0-1.0); Blood Urea Nitrogen 30 mg/dL (9-16); Calcium 9.4 mg/dL (8.4-10.2); Carbon Dioxide 36 mmol/L (22-29); Chloride 92 mmol/L (96-108); Cholesterol 148 mg/dL (<200); Estimated Glomerular Filt Rate 45; Glucose Fasting 81 mg/dL (60-99); HDL Cholesterol 63 mg/dL (>40); LDL Cholesterol Calculated 71 mg/dL (<100); Potassium 3.8 mmol/L (3.3-5.1); Sodium 137 mmol/L (135-145); Total Protein 7.2 g/dL (6.5-8.0); Triglycerides 74 mg/dL (<150)
[2024-04-08 11:53] LABS: Bacteria Urine 4+ (None Seen); RBC Urine 0-2 /HPF (0-2); UACC Culture Trigger YES
== END 2024-04-08 07:37 | disposition home or self-care (01) ==
LOC: HO.LNP 07:36
PROVIDERS: Visit Provider Internal Medicine
DX: E03.9 Hypothyroidism, unspecified (principal); I10 Essential (primary) hypertension; D72.820 Lymphocytosis (symptomatic); E78.00 Pure hypercholesterolemia, unspecified
CPT/HCPCS: 80053; 80061; 81001; 85025; 87086; 87088; 87186

== ENCOUNTER 2024-05-06 13:45 | Outpatient (REF) | payer MEDICARE, SELFPAY ==
--- OUTSIDE RECORDS SUMMARY | 2024-05-06 15:05 | XMS_ITS ---
Author Organization [facility] Address [address] [place] [address] [place] [address] Care Team Providers Care Certified Ophthalmic Surgical Assistant Name Role Phone Rai Fabian MD Primary Care Provider Travis Perez [phone] REASON FOR VISIT Needs labs MEDICATIONS Medication SIG (Take, Route, Fr equency, Duration) Notes Start Date End Date Status Lomotil 2.5-0.025 MG 1 or 2 Orally Every 6 hours as needed for diarrhea for 30 days 06/30/2023 Active PROBLEMS Problem Type ICD Code Onset Dates Problem Status W/U Status Risk SNOMED Code Notes Problem Melena (K92.1) Active confirmed Melena (0983714) Encounters Encounter Location Date Provider Diagnosis [facility] [address] [address] 06/29/2023 Travis Taylor Melena K92.1 ASSESSMENTS Encounter Date Diagnosis Assessment Notes Treatment Notes Treatment Clinical Notes 06/29/2023 Melena (ICD-10 - K92.1) PLAN OF TREATMENT Medication Medication Name Sig Start Date Stop Date Notes Lomotil 2.5-0.025 MG 1 or 2 Orally Every 6 hours as needed for diarrhea for 30 days 06/30/2023 Pending Test Test Name Order Date CHEM 7 PROFILE 06/29/2023 CBC w DIFF 06/29/2023
--- OUTSIDE RECORDS SUMMARY | 2024-05-06 15:05 | XMS_ITS ---
Author Organization [facility] Address [address] [place] [address] Care Team Providers Care Carpenter Supervisor Name Role Phone Rai Fabian MD Primary Care Provider Travis Perez [phone] REASON FOR VISIT lomotil MEDICATIONS Medication SIG (Take, Route, Fr equency, Duration) Notes Start Date End Date Status Lomotil 2.5-0.025 MG 1 or 2 Orally Every 6 hours as needed for diarrhea for 30 days 07/02/2023 Active Encounters Encounter Location Date Provider Diagnosis [facility] [address] [facility] [address] [place] [address] [place] [address] 07/01/2023 Travis Taylor PLAN OF TREATMENT Medication Medication Name Sig Start Date Stop Date Notes Lomotil 2.5-0.025 MG 1 or 2 Orally Every 6 hours as needed for diarrhea for 30 days 07/02/2023
--- OUTSIDE RECORDS SUMMARY | 2024-05-06 15:05 | XMS_ITS | Patient Health Record ---
[facility] Address [address] [facility] [place] [address] Care Team Providers Care Umbrella Repairer Name Role Phone Rai Fabian MD Primary Care Provider Valente Mendoza Unavailable [phone] Allergies No Known Allergies Reason For Referral No Information Medications Medication SIG (Take, Route, Frequency, Duration) Notes Start Date End Date Status Omeprazole Active Metoprolol & Diet Manage Prod Active lipitor Active Lisinopril Active Levothyroxine Sodium 50mg 1 tablet Orall y Once a day Active hydroCHLOROthiazide Active Gabapentin 400 MG [address] ee times a day for 30 day(s) 04/25/2016 Active eliquis Active Celecoxib Active Social History Tobacco Use: Social History Observation Description Date Details (start date - stop date) Never Smoker NA - NA Tobacco Use/Smoking Question Answer Notes Are you a: nonsmoker Additional Findings: Tobacco Non-User Current no n-smoker Alcohol Screen Question Answer Notes Did you have a drink containing alcohol in the p ast year? No Points 0 Interpretation Negative Tobacco use other than smoking: Question Answer Notes Are you an other tobacco user? No Problems Problem Type SNOMED Code ICD Code Onset Dates Problem Status W/U Status Risk Notes Problem Acquired hallux valgus (82792150) Hallux valgus (acquired), left foot (M20.12) Active confirmed Problem Localized, primary osteoarthritis of the ankle and/or foot (792806806) Primary osteoarthrit is, right ankle and foot (M19.071) Active confirmed Problem Localized, primary osteoarthritis of the ankle and/or foot (281378378) Primary osteoarthrit is, left ankle and foot (M19.072) Active confirmed Problem Acquired hallux valgus (07866236) Hallux valgus (acquired), right foot (M20.11) Active confirmed Problem Acquired hammer toe of right foot (0033643375145687) Other hammer toe(s) (acquired), right foot (M20.41) Active confirmed Problem Acquired hammer toe of left foot (5721351256692198) Other hammer toe(s) (acquired), left foot (M20.42) Active confirmed Plan Of Treatment Pending Test Test Name Order Date X ray : Ankle, left 2V 02/12/2021 X ray : Foot, left 2V 06/25/2015 X ray : Foot, right 2V 06/25/2015 X ray : Foot, left 3V 02/12/2021 X ray : Foot, right 3V 04/28/2016 [id number] NAIL, 1-5 08/16/2014, J0702- INJECT or DRAIN, JOINT/BUR SA 09/27/2018, J0702- INJECT or DRAIN, JOINT/BUR SA 03/25/2019, J0702- INJECT or DRAIN, JOINT/BUR SA 02/12/2021, J0702- INJECT or DRAIN, JOINT/BUR SA 06/12/2021, J0702- INJECT or DRAIN, JOINT/BUR SA 10/03/2019, J0702- INJECT or DRAIN, JOINT/BUR SA 09/03/2020, J0702- INJECT or DRAIN, JOINT/BUR SA 12/07/2020, G7380-IDMVF/INJECT, JOINT/BURSA 0 12/07/2020, A7869-YEJMW/INJECT, JOINT/BURSA 0 10/03/2019, K8995-PPFIN/INJECT, JOINT/BURSA 0 06/12/2021, R7640-HWEON/INJECT, JOINT/BURSA 0 03/25/2019, W0287-DCQCM/INJECT, JOINT/BURSA 0 09/27/2018, P1708-HQIIG/INJECT, JOINT/BURSA 0 12/01/2016, N3765-YOYLR/INJECT, JOINT/BURSA 1 04/18/201623426, F1912-DJBGI/INJECT, JOINT/BURSA 0 04/08/201886978- Ganglion Cyst Injection/Aspiratio n 10/03/2019 24771, J0702- Neuroma/Injection 02/17/20 17 03625, J0702- Neuroma/Injection 08/06/19 16 28342, J0702- Neuroma/Injection 04/03/19 17 52342, J0702- Neuroma/Injection 07/16/19 17 51639, J0702- Neuroma/Injection 09/04/19 17 32611, J0702- Neuroma/Injection 12/02/19 17 Insurance Providers Payer Name Payer Address Payer Phone Subscriber Number Group Number Insured Name Patient Relationship to Insured Coverage Start Date Coverage End Date Medicare [employer] [address] [place] [address] [id number] Mandie Gonzalez Self - patient is the insured [employer] [address] [place] [address] [id number] Mandie Gonzalez Self - patient is the insured Medical (General) History Medical History History ICD Code Arthritis Back,Hip,and Knee pain Chicken pox Measles Mumps Hypertension Thyroid disorder Surgical History Surgery Date(Month/Year) rotator cuff tear repair 09/2013 hand/wrist 04/2012 uterus surgery 09/2010 right foot - [facility] 04/2018 RFA Back 08/31/20 R shoulder replacement 11/06/2020 Hospitalization History Reason Date(Month/Year) [facility]- chest xray [facility] [place]- UTI 1 week /Rehab 3weeks 2021 admitted to [facility] DX- stroke - discharged 09/01/2016 08/28/2016
--- OUTSIDE RECORDS SUMMARY | 2024-05-06 15:05 | XMS_ITS | Patient Health Record ---
Author Organization [facility] Address [address] [place] [address] Care Team Providers Care Dumper Name Role Phone Rai Fabian MD Primary Care Provider Travis Perez Unavailable [phone] ALLERGIES No Known Allergies RESULTS Component Value Reference Range Notes GI PANEL Reviewed date:06/20/2023 01:57:10 PM Interpretation: Performing Lab:[facility], [address] [place] [id number] Notes/Report: Campylobacter Not Detected Not Detect. Plesiomonas shigelloides Not Detected Not Detect. Salmonella Not Detected Not Detect. Vibrio Not Detected Not Detect. Vibrio Cholerae Not Detected Not Detect. Yersinia enterocolitica Not Detected Not Detect. E. coli EAEC Not Detected Not Detect. E. coli EPEC Not Detected Not Detect. E. coli ETEC Not Detected Not Detect. E. coli STEC Not Detected Not Detect. E. coli O157 Not applicable Not Detect. E. coli containing the O157 antigen are a subset of Shiga-like toxin-producing E. coli (STEC). Shigella sp./EIEC Not Detected Not Detect. Cryptosporidium Not Detected Not Detect. Cyclospora cayetanensis Not Detected Not Detect. Entamoeba histolytica Not Detected Not Detect. Giardia lamblia Not Detected Not Detect. Adenovirus F 40/41 Not Detected Not Detect. Astrovirus Not Detected Not Detect. Norovirus GI/GII Not Detected Not Detect. Rotavirus A Not Detected Not Detect. Sapovirus Not Detected Not Detect. All results must be correlated with clinical findings. Negative results do not exclude the possibility of gastrointestinal infection and should not be used as the sole basis for diagnosis, treatment, or other management decisions. Virus, bacteria, and parasite nucleic acid may persist in vivo independently of organism viability. Additionally, some organisms may be carried symptomatically. Detection of organism targets does not imply that the corresponding organisms are infectious or are the causative agents for clinical symptoms. There is a risk of false negative values due to the presence of sequence variants in the gene targets of the assay, amplification inhibitors in specimens, or inadequate numbers of organisms for amplification. The identification of several diarrheagenic E. coli pathotypes has historically relied upon phenotypic characteristics. This panel targets genetic determinants characteristic of most pathogenic strains, but may not detect all strains having phenotypic characteristics of a pathotype. The performance of this test has not been established for monitoring treatment of infection with any of the panel organisms. This assay is performed by Multiplexed PCR, utilizing the IQMax Array. Leukocytes Stool Qualitative Reviewed date:06/20/2023 01:08:36 PM Interpretation: Performing Lab:[address] [phone] Notes/Report: Leukocytes Stool Qualitative NEGATIVE NEGATIVE CDiff Gene PCR Reviewed date:06/22/2023 07:13:10 PM Interpretation: Performing Lab:[address] [phone] Notes/Report: CDiff Gene PCR NEGATIVE Negative If C. difficile strongly suspected despite one negative test, a second test may be sent vs. empiric treatment for C. difficile infection. Complete Blood Count Auto Di ff Reviewed date:07/04/2023 11:46:56 PM Interpretation: Performing Lab:[address] [phone] Notes/Report: White Blood Count 7.5 4.8-10.8 X10*3/uL Red Blood Count 4.09 4.20-5.50 X10*6/uL Hemoglobin 11.6 12.0-16.0 g/dl Hematocrit 36.4 37.0-47.0 % Mean Corpuscular Volume 89.0 80.0-98.0 fL Mean Corpuscular Hemoglobin 28.4 27.0-33.0 pg Mean Corpuscular HGB Conc 31.9 31.0-35.0 g/dl Red Cell Distribution Width 14.0 11.0-16.0 % Platelet Count 171 160-400 X10*3/uL Mean Platelet Volume 11.0 9.4-12.3 fL Neutrophils Percent Auto 68.0 45-73 % Imm Gran Pct Auto 0.3 0.0-0.4 % Lymphocytes Percent Auto 18.5 20-40 % Monocytes Percent Auto 10.0 2-11 % Eosinophils Percent Auto 2.5 0-4 % Basophils Percent Auto 0.7 0-2 % NRBC Pct Auto 0.0 0.0-0.2 /100WBC Neutrophils Absolute Auto 5.1 2.0-8.3 x10*3/u L Imm Gran Abs Auto 0.02 0.00-0.03 X10*3/uL Lymphocytes Absolute Auto 1.4 1.2-4.9 X10*3/u L Monocytes Absolute Auto 0.8 0.1-1.2 X10*3/uL Eosinophils Absolute Auto 0.2 0.0-0.4 X10*3/u L Basophils Absolute Auto 0.1 0.0-0.2 X10*3/uL NRBC Abs Auto 0.000 0.0-0.012 X10*3/uL Comprehensive Met. Panel Reviewed date:07/03/2023 12:21:50 AM Interpretation: Performing Lab:[facility], [address] [place] [phone] Notes/Report: Sodium 139 135-145 mmol/L Potassium 3.8 3.3-5.1 mmol/L Chloride 98 96-108 mmol/L Carbon Dioxide 32 22-29 mmol/L Anion Gap 13 12-20 Blood Urea Nitrogen 15 9-16 mg/dL Creatinine 0.90 0.5-1.4 mg/dL Estimated Glomerular Filt Rate > 60 NOTE: For -Armenian individuals, multiply the result by 1.210. Chronic Kidney Disease: Estimated GFR < 60 mL/min/1.73m2 Severe Kidney Disease: Estimated GFR < 15 mL/min/1.73m2 Glucose Random 89 60-115 mg/dL Calcium 9.7 8.4-10.2 mg/dL Bilirubin Total 0.4 0.0-1.0 mg/dL Aspartate Amino Transferase 23 5-31 U/L Alanine Aminotransferase 11 0-31 U/L Total Protein 6.6 6.5-8.0 g/dL Albumin Level 3.6 3.5-5.0 g/dL Alkaline Phosphatase 91 39-117 U/L REASON FOR REFERRAL No Information MEDICATIONS Medication SIG (Take, Route, Frequency, Duration) Notes Start Date End Date Status Lomotil 2.5-0.025 MG 1 or 2 Orally Every 6 hours as needed for diarrhea for 30 days 07/02/2023 Active Gabapentin 400 MG Oral for 90 Active Eliquis 5 MG Orally Active Verapamil HCl ER 120 MG TAKE 1 TABLET BY MOUTH EVERY DAY Oral for 90 Active Prempro 0.625-2.5 MG 1 tablet Orally Onc e a day Active Myrbetriq 25 MG Oral for 90 Ac tive Wunoufnzsq-CBIZ-Keblkhmj 50-325-40 MG Oral for 30 Active HYDROcodone-Acetaminophen 5-325 MG Oral for 20 Active Lisinopril-hydroCHLOROthiazi de 20-12.5 MG 1 tablet Orally Once a day Active Fidaxomicin 200 MG 1 tablet Orally Twic e a day for 10 day(s) 11/11/2022 Active Levothyroxine Sodium 50 MCG 1 tablet on an empty stomach in the morning Orally Once a day Active Metoprolol Succinate ER 50 MG 1 tablet Orally Once a day Active Omeprazole 20 MG 1 capsule Orally Onc e a day Active Omeprazole 20 MG Oral for 90 A ctive Atorvastatin Calcium 40 MG 1 tablet Oral ly Once a day Active Vancomycin HCl 250 MG 1 capsule Orally e very 6 hrs for 10 day(s) 11/12/2022 Active IMMUNIZATIONS Vaccine Route Administration Date Status Comme nts Influenza Unknown 01/07/2022 Administered SOCIAL HISTORY Tobacco Use: Social History Observation Description Date Details (start date - stop date) Never Smoker NA - NA Sex Assigned At : Social History Observation Description Sex Assigned At Unknown Tobacco Use/Smoking Question Answer Notes Patient is a nonsmoker Alcohol Screen Question Answer Notes Did you have a drink contain ing alcohol in the past year? Yes How often did you have a dri nk containing alcohol in the past year? Monthly or less (1 point) How many drinks did you have on a typical day when you were drinking in the past year? 1 or 2 drinks (0 point) How often did you have 6 or more drinks on one occasion in the past year? 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) Active confirmed 08641089 Problem Diarrhea, unspecified type (R19.7) Active confirmed 54668749 Problem Encounter for screening for malignant neoplasm of colon (Z12.11) Active confirmed 785867230 Problem Iron deficiency anemia, unspecified iron deficiency anemia type (D50.9) Active confirmed 88534354 Problem Diverticulosis of large intestine without perforation or abscess without bleeding (K57.30) Active confirmed Diverticul ar disease of colon (252539672) Problem Iron deficiency anemia (D50.9) Active confirmed Iron deficien cy anemia (37259869) Problem Gastritis (K29.70) Active confirmed Gastritis (2432724) Problem Diarrhea of presumed infectious origin (R19.7) Active confirmed 15922026 Problem History of Clostridioides difficile infection (Z86.19) Active confirmed 168840019639228 Problem Clostridium difficile diarrhea (A04.72) Active confirmed 2012838390917 Problem Acute diarrhea (R19.7) Active confirmed Acute diarrhea (606702917) Problem Melena (K92.1) Active confirmed Melena (6659217) Encounters Encounter Location Date Provider Diagnosis [facility] [address] [place] [phone] 06/16/2023 Travis Taylor Acute diarrhea R19.7 and History of Clostridioides difficile infection Z86.19 [facility] [address] [place] [phone] 06/22/2023 Travis Taylor [facility] [address] [place] [phone] 06/29/2023 Travis Taylor Melena K92.1 [facility] [address] [place] [phone] 07/01/2023 Travis Taylor [facility] [address] [place] [phone] 07/03/2023 Travis Taylor ASSESSMENTS Encounter Date Diagnosis Assessment Notes Treatment Notes Treatment Clinical Notes 06/16/2023 History of Clostridioides difficile infection (ICD-10 - Z86.19) 06/16/2023 Acute diarrhea (ICD-10 - R19.7) 06/29/2023 Melena (ICD-10 - K92.1) PLAN OF TREATMENT Pending Test Test Name Order Date CHEM 7 PROFILE 12/23/2022 CHEM 7 PROFILE 06/29/2023 LIVER PROFILE 12/23/2022 IRON + IBC (FE) 06/26/2022 CRP 12/23/2022 CBC w DIFF 06/26/2022 CBC w DIFF 12/23/2022 CBC w DIFF 06/29/2023 SED RATE (ESR) 12/23/2022 GIARDIA AG, STOOL EIA 12/14/2016 OVA & PARASITES (O&P) 12/14/2016 STOOL WBC 12/02/2022 STOOL WBC 2023 STOOL WBC 12/23/2022 STOOL WBC 10/29/2022 STOOL WBC 06/16/2023 C DIFFICILE RFLX PCR 12/02/2022 C DIFFICILE RFLX PCR 2023 C DIFFICILE RFLX PCR 12/23/2022 C DIFFICILE RFLX PCR 10/29/2022 C DIFFICILE RFLX PCR 06/16/2023 TSH reflex Free T4 12/23/2022 GI PANEL 12/23/2022 GI PANEL 10/29/2022 Future Test Test Name Order Date COLONOSCOPY 04/01/2017 UPPER GI ENDOSCOPY 06/26/2022 COLONOSCOPY 06/26/2022 Insurance Providers Payer Name Payer Address Payer Phone Subscriber Number Group Number Insured Name Patient Relationship to Insured Coverage Start Date Coverage End Date MEDICARE OF [place] [address] [place] [address] [id number] JAKOB BECERRIL Self - patient is the insured [employer] ATT[employer] CLAIMS [address] [place] [address] [id number] JAKOB BECERRIL Self - patient is the insured MEDICAL (GENERAL) HISTORY Medical History History ICD Code Stroke- August 2016--no residu al--received TPA at [facility] [place]--on Eliquis--? for Afib or SVT at the time of the CVA Hypertension Urinary incontinence Seasonal allergies Denies GA,DM,Lung disease,renal disease Hyperlipidemia Arthritis Hypothyroidism EGD in 2007--Dr. Díaz--HH, gastritis- -H.pylori negative Colonoscopy in 2007-Dr. Panitch--1 tubul ar adenoma ERCP with sphincterotomy in 2008--CBD stones, duodenal ulcers--negative H.pylori UTI Negative colonoscopy in 08/2017 Iron deficiency anemia--- co lonoscopy was negative in June of 2022, upper endoscopy in June of 2022 revealed some gastritis and a resolving ulcer with biopsies negative for H. pylori and negative for celiac disease C. difficile infection in October of 2022 treated with vancomycin Surgical History Surgery Date(Month/Year) Cholecystectomy/CBD stones--had a preop ERCP Carpal tunnel release bilaterally Bilateral oopherectomy Bilateral Rotator cuff tear repair Bladder suspension x 2
--- OUTSIDE RECORDS SUMMARY | 2024-05-06 15:05 | XMS_ITS ---
Author Organization Rai Fabian MD Address [address] [place] [address] [phone] Support Name Relationship Address Phone Rai Fabian Caregiver [address] [facility] [address] [place] [address] [phone] Nicole Díaz Caregiver [facility] [address] [place] [address] [phone] Raheel Morley Caregiver [address] [facility] [address] [place] [address] [phone] Travis Taylor Caregiver [address] [facility] [address] [address] [place] [address] [phone] May Landis Caregiver [address] [facility] [address] [address] [place] [address] [phone] DOROTHY GONZALEZ Caregiver [address] [facility] [address] [address] [place] [address] [phone] Lele Childress Caregiver [facility] [address] [place] [address] [phone] BILL MEDINA Caregiver [address] [facility] [address] [address] [place] [address] [phone] Judy Woods Caregiver [address] [facility] [address] [address] [place] [address] [phone] CAMILLE SINGER Caregiver [address] [facility] [address] [place] [address] [phone] ANILA BATES Caregiver [address] [place] [address] [phone] TRAVIS COFFEY Emergency Contact Unknown Mandie Becerril Guarantor Unknown [phone] Care Team Providers Care V Belt Skiver Name Role Phone Rai Fabian Primary Care Provider [phone] Allergies No Known Allergies REASON FOR VISIT review labs, accompanied by Travis Medications Medication SIG (Take, Route, Frequency, Duration) Notes Start Date End Date Status Eliquis 5 MG TAKE ONE TABLET BY MOUTH TWICE DAILY as directed Active Escitalopram Oxalate 10 MG 1 tablet Oral ly Once a day for 30 days 05/06/2024 Active Hydrocortisone (Perianal) 2.5 % use 1 application externally twice a day for 7 days. for 7 Active Gabapentin 400 MG TAKE ONE CAPSULE BY MOUTH FOUR TIMES DAILY 2 caps twice a day Active Albuterol Sulfate HFA 108 (90 Base) MCG/ACT INHALE TWO PUFFS BY MOUTH EVERY FOUR HOURS NEEDED Inhalation every 4 hrs Active Azelastine HCl 0.1 % 1 puff in each nost ril Nasally Twice a day for 30 day(s) Active Myrbetriq 25 MG 1 tablet Orally Once a day for 30 day(s) Active Flonase Allergy Relief 50 MCG/ACT 1 spray in each nostril Nasally Once a day for 30 day(s) 05/30/2016 Active ZyrTEC Allergy 10 mgs 1 tablet once a day Active Magnesium 300 MG 1 capsule with a taryn l Orally Once a day for 30 day(s) Active hydrOXYzine HCl 25 MG 1 tablet as needed Orally Once a day for 30 day(s) Active Verapamil HCl ER 120 MG TAKE ONE TABLET BY MOUTH ONCE DAILY Active Metoprolol Succinate ER 50 MG take 1 tablet by mouth once daily Active Furosemide 40 MG 1 tablet Orally Once a day 03/29/2024 Active Levothyroxine Sodium 50 MCG TAKE ONE TABLET BY MOUTH ONCE DAILY Active Ventolin HFA 108 (90 Base) MCG/ACT 2 puffs as needed Inhalation every 4 hrs for 30 days 09/25/2015 Not-Taking traMADol HCl 50 MG TAKE 1 TABLET BY KHOI TH EVERY 6 HOURS NEEDED for 10 Not-Taking Atorvastatin Calcium 40 MG TAKE ONE TABL ET BY MOUTH ONCE DAILY Active Lisinopril-hydroCHLOROthia zide 20-12.5 MG TAKE ONE TABLET BY MOUTH ONCE DAILY Active Omeprazole 20 MG TAKE ONE CAPSULE BY MOUTH ONCE DAILY Active Paxil 20 MG 1 tablet in the morning Orally Once a day 10/04/2020 Not-Taking Paxil 20 MG 0.5 tablet in the morning Orally Once a day 12/12/2022 Not-Taking oxyCODONE HCl 5 MG 1 tablet as needed Orally every 6 hrs Not-Taking Cyclobenzaprine HCl 5 MG TAKE ONE TABLET BY MOUTH ONCE DAILY for 30 Not-Taking LORazepam 0.5 1 tablet at bedtime as needed Orally Twice a day for 7 Not-Taking Ondansetron HCl 4 MG TAKE 1 TABLET BY MO UTH DAILY NEEDED for 30 Active Meclizine HCl 25 MG TAKE ONE TABLET BY MOUTH TWICE DAILY NEEDED for 10 Not-Taking Cephalexin 500 MG 1 capsule Orally efren ry 8 hrs for 5 days 04/12/2024 Not-Taking Amoxicillin-Pot Clavulanate 875-125 MG 1 tablet Orally every 12 hrs for 10 days 02/26/2024 Active Bdeisxhqml-KSXO-Yzefomam 50-325-40 MG TAKE ONE TABLET BY MOUTH EVERY FOUR TO SIX HOURS NEEDED FOR 5 DAYS for 5 Active Prempro 0.625-2.5 MG TAKE ONE TABLET BY MOUTH ONCE DAILY for 28 Active Hyoscyamine Sulfate 0.[address] 1 tablet under the tongue and allow to dissolve 3 times a day as needed for 7 days for 7 Active Amoxicillin-Pot Clavulanate 875-125 MG 1 tablet Orally every 12 hrs for 10 days 12/15/2023 Active Social History Tobacco Use: Social History Observation Description Date Details (start date - stop date) Never Smoker NA - NA Tobacco Use/Smoking Question Answer Notes Patient is a nonsmoker Additional Findings: Tobacco Non-User Cu rrent non-smoker, currently using no form of tobacco Alcohol Screen Question Answer Notes Did you have a drink containing alcohol in the p ast year? No Points 0 Interpretation Negative Vital Signs Blood pressure systolic 102 mm Hg 05/06/19 25 Blood pressure diastolic 60 mm Hg 025 Height 64 in 05/06/2024 Weight 186 lbs 05/06/2024 BMI 31.92 kg/m2 05/06/2024 weight is up 5 pounds since 04-04-24 Encounters Encounter Location Date Provider Diagnosis Rai Fabian MD [address] [place] [address] [place] [address] [phone] 05/06/2024 Rai Fabian UTI (urinary tract infection) N39.0 ; Essential hypertension I10 ; Anxiety, generalized F41.1 ; Acquired hypothyroidism E03.9 ; Gastroesophageal reflux disease without esophagitis K21.9 ; Hypercholesterolemia E78.00 and Acute systolic congestive heart failure I50.21 Assessments Encounter Date Diagnosis (ICD Code) Assessment Notes Treatment Notes Treatment Clinical Notes Section Notes 05/06/2024 UTI (urinary tract infection) (ICD-10 - N39.0) pending labs awaiting test results 05/06/2024 Essential hypertensi on (ICD-10 - I10) stable, will continue current regiment stable 05/06/2024 Anxiety, generalized (ICD-10 - F41.1) patient verbalized understanding of medication and directions for use doing well, w 05/06/2024 Acquired hypothyroid ism (ICD-10 - E03.9) stable, will continue current regiment 05/06/2024 Gastroesophageal ref lux disease without esophagitis (ICD-10 - K21.9) stable, will continue current regiment 05/06/2024 Hypercholesterolemia (ICD-10 - E78.00) stable, will continue current regiment 05/06/2024 Acute systolic congestive heart failure (ICD-10 - I50.21) stable, will continue current regiment Plan Of Treatment Medication Medication Name Sig Start Date Stop Date Notes Escitalopram Oxalate 10 MG 1 tablet Oral ly Once a day for 30 days 05/06/2024 Verapamil HCl ER 120 MG TAKE ONE TABLET BY MOUTH ONCE DAILY Metoprolol Succinate ER 50 MG take 1 tab let by mouth once daily Furosemide 40 MG 1 tablet Orally Once a day 03/29/2024 Levothyroxine Sodium 50 MCG TAKE ONE TAB LET BY MOUTH ONCE DAILY Atorvastatin Calcium 40 MG TAKE ONE TABL ET BY MOUTH ONCE DAILY Lisinopril-hydroCHLOROthiazi de 20-12.5 MG TAKE ONE TABLET BY MOUTH ONCE DAILY Omeprazole 20 MG TAKE ONE CAPSULE BY MOUTH ONCE DAILY Treatment Notes Assessment Notes UTI (urinary tract infection) pending la bs Essential hypertension stable, will cont inue current regiment Anxiety, generalized patient verbalized understanding of medication and directions for use Acquired hypothyroidism stable, will con tinue current regiment Gastroesophageal reflux dise ase without esophagitis stable, will continue current regiment Hypercholesterolemia stable, will contin ue current regiment Acute systolic congestive heart failure stable, will continue current regiment Pending Test Test Name Order Date UA ClnCatch+Micro w/rflx Cult 05/06/2024 Next Appt Details Follow Up: 2 Months, Reason: Provider Name:Rai trotter, 07/04/2024 02:00:00 PM, [address], [address], [place], [phone], Provider Name:Rai Howellbaron avilar, 10/28/2024 07:45:00 AM, [address], [address], [place], [phone], Provider Name:Rai Kvng Cristi ier, 11/04/2024 02:00:00 PM, [address], [address], [place], [phone], Provider Name:Rai Colin ier, 05/04/2025 07:15:00 AM, [address], [address], [place], [phone], Provider Name:Rai Calderon Cristi avilar, 05/11/2025 02:30:00 PM, [address] [facility], [address], [place], [phone], Progress Notes * Aaron BECERRILOB: (74 yo F)Acc No.[id number]:05/06/2024 Patient:?BECERRIL, Mandie Provider:?Rai Fabian MD :1950???Age:74 Y???Sex:Female D ate:05/06/2024 Address:[address] [place] [address] [place], [phone] Subjective: * Chief Complaints: * ???1. Review labs. 2. accomp anied by Travis. * HPI: ???Depression Screening:?PHQ-9?Little interest or pleasure in doing things?Not at all,?Feeling down, depressed, or hopeless?Not at all,?Trouble falling or staying asleep, or sleeping too much?Not at all,?Feeling tired or having little energy?Not at all,?Poor appetite or overeating?Not at all,?Feeling bad about yourself or that you are a failure, or have let yourself or your family down?Not at all,?Trouble concentrating on things, such as reading the newspaper or watching television?Not at all,?Moving or speaking so slowly that other people could have noticed; or the opposite, being so fidgety or restless that you have been moving around a lot more than usual?Not at all,?Thoughts that you would be better off or of hurting yourself in some way?Not at all,?Total Score?0.?Interpretation and Intervention?Depression Screening Findings?Negative,?Follow-Up for Depression?: review of PHQ-9 found negative result, no follow-up needed.?patient is a 74 yo female here for yearly evaluation with review of recent labs and follow up of chronic issues, .. saw dr recinos yesterday. don't have the results yet. is sending her to pulmonary. is getting tests at [facility]. ???Communication Needs:?Communication Needs?Does the patient have a hearing impairment?No,?Does the patient have a vision impairment??Yes,?If yes, what is the vision impairment??Glasses,?Does the patient have a cognition impairment??No.?Fall Risk:?History?Have you had any falls with injury in the past year??No,?Have you had two or more falls in the past year??No.?SDOH Questions:?SDOH Questions?In the past year have you been worried about losing housing??No,?In the past year have you or any family members you live with been unable to get any of the following when it was really needed? Check all that apply:?None.? * ROS:?General/Constitutional:?Patient denies?fatigue, headache.?Change in appetite?denies.?Chills?denies.?Fever?denies.?Ophthalmologic:?Blurred vision?denies.?Discharge?denies.?Pain?denies.?ENT:?Patient denies?decreased sense of smell, any loss of taste, sore throat.?Decreased hearing?denies.?Sore throat?denies.?Swollen glands?denies.?Endocrine:?Cold intolerance?denies.?Excessive thirst?denies.?Heat intolerance?denies.?Weight loss?denies.?Respiratory:?Cough?denies.?Shortness of breath at rest?denies.?Shortness of breath with exertion?denies.?Wheezing?denies.?Cardiovascular:?Chest pain at rest?denies.?Chest pain with exertion?denies.?Irregular heartbeat?denies.?Shortness of breath?denies.?Gastrointestinal:?Abdominal pain?denies.?Change in bowel habits?denies.?Diarrhea?denies.?Nausea?denies.?Rectal bleeding?denies.?Vomiting?denies .?Genitourinary:?Blood in urine?denies.?Difficulty urinating?denies.?Frequent urination?denies.?Urinary incontinence?Denies.?Musculoskeletal:?Patient denies?muscle aches.?Painful joints?denies.?Weakness?denies.?Peripheral Vascular:?Patient denies?red and blue toes.?Skin:?Dry skin?denies.?Itching?denies.?Denies?Mole(s),? changes in moles, new moles or any lesions of concern.?Denies?Photosensitivity.?Rash?denies.?Neurologic:?Dizziness?denies.?Fainting?denies.?Headache?denies.?Psychiatric:?Patient complaining of?a lot of anxiety.? * Medical History:?Hypertensio n, Peptic ulcer, Adenomatous polyp, Carpal tunnel, colonoscopy 2007; colonoscopy done 12/07/[address] Taylor-no further testing indicated.07/14/22 colonoscopy awaiting path, No further colonoscopys. neg biopsy. * Family History:?Father: dece ased 75 yrs.?Mother: 76 yrs, cerebrovascular disease.?Daughter(s): alive.?1 sister(s) . 1 daughter(s) . .? Father- Cardiac Mother-CVA no family history of mental ullness or drug abuse, Denies mental health/substance abuse family history, Denies mental health/substance abuse family history. * Social History:?Tobacco Use:?Tobacco Use/Smoking?Patient is a?nonsmoker,?Additional Findings: Tobacco Non-User?Current non-smoker, currently using no form of tobacco.?Drugs/Alcohol:?Alcohol Screen?Did you have a drink containing alcohol in the past year??No,?Points?0,?Interpretation?Negative.?Miscellaneous:?Caffeine: no. Children: yes. Community involvements: no. Exercise: no. Living with: significant other. Occupation: weeks/months/years, retired. Pets: none. Travel outside of the [place]: no. * Medications:?Taking hydrOXYz ine HCl 25 MG Tablet 1 tablet as needed Orally Once a day , Taking Myrbetriq 25 MG Tablet Extended Release 24 Hour 1 tablet Orally Once a day , Taking Azelastine HCl 0.1 % Solution 1 puff in each nostril Nasally Twice a day , Taking ZyrTEC Allergy 10 mgs 1 tablet once a day , Taking Flonase Allergy Relief 50 MCG/ACT Suspension 1 spray in each nostril Nasally Once a day , Taking Magnesium 300 MG Capsule 1 capsule with a meal Orally Once a day , Taking Hydrocortisone (Perianal) 2.5 % Cream use 1 application externally twice a day for 7 days. , Taking Albuterol Sulfate HFA 108 (90 Base) MCG/ACT Aerosol Solution INHALE TWO PUFFS BY MOUTH EVERY FOUR HOURS NEEDED Inhalation every 4 hrs , Taking Gabapentin 400 MG Capsule TAKE ONE CAPSULE BY MOUTH FOUR TIMES DAILY 2 caps twice a day , Taking Atorvastatin Calcium 40 MG Tablet TAKE ONE TABLET BY MOUTH ONCE DAILY , Taking Omeprazole 20 MG Capsule Delayed Release TAKE ONE CAPSULE BY MOUTH ONCE DAILY , Taking Eliquis 5 MG Tablet TAKE ONE TABLET BY MOUTH TWICE DAILY as directed , Taking Lisinopril-hydroCHLOROthiazide 20-12.5 MG Tablet TAKE ONE TABLET BY MOUTH ONCE DAILY , Taking Metoprolol Succinate ER 50 MG Tablet Extended Release 24 Hour take 1 tablet by mouth once daily , Taking Verapamil HCl ER 120 MG Tablet Extended Release TAKE ONE TABLET BY MOUTH ONCE DAILY , Taking Prempro 0.625-2.5 MG Tablet TAKE ONE TABLET BY MOUTH ONCE DAILY , Taking Amoxicillin-Pot Clavulanate 875-125 MG Tablet 1 tablet Orally every 12 hrs , Taking Hyoscyamine Sulfate 0.[address] 1 tablet under the tongue and allow to dissolve 3 times a day as needed for 7 days , Taking Zdwlqjewaa-MTQM-Ittyxbve 50-325-40 MG Tablet TAKE ONE TABLET BY MOUTH EVERY FOUR TO SIX HOURS NEEDED FOR 5 DAYS , Taking Amoxicillin-Pot Clavulanate 875- 125 MG Tablet 1 tablet Orally every 12 hrs , Taking Ondansetron HCl 4 MG Tablet TAKE 1 TABLET BY MOUTH DAILY NEEDED , Taking Levothyroxine Sodium 50 MCG Tablet TAKE ONE TABLET BY MOUTH ONCE DAILY , Taking Furosemide 40 MG Tablet 1 tablet Orally Once a day , Not-Taking/PRN Cephalexin 500 MG Capsule 1 capsule Orally every 8 hrs , Not-Taking/PRN Meclizine HCl 25 MG Tablet TAKE ONE TABLET BY MOUTH TWICE DAILY NEEDED , Not-Taking/PRN Paxil 20 MG Tablet 0.5 tablet in the morning Orally Once a day , Not-Taking/PRN Paxil 20 MG Tablet 1 tablet in the morning Orally Once a day , Not-Taking/PRN Cyclobenzaprine HCl 5 MG Tablet TAKE ONE TABLET BY MOUTH ONCE DAILY , Not-Taking/PRN oxyCODONE HCl 5 MG Tablet 1 tablet as needed Orally every 6 hrs , Not-Taking/PRN LORazepam 0.5 Tablet 1 tablet at bedtime as needed Orally Twice a day , Not-Taking/PRN traMADol HCl 50 MG Tablet TAKE 1 TABLET BY MOUTH EVERY 6 HOURS NEEDED , Not-Taking/PRN Ventolin HFA 108 (90 Base) MCG/ACT Aerosol Solution 2 puffs as needed Inhalation every 4 hrs , Medication List reviewed and reconciled with the patient * Allergies:?N.K.D.A. Objective: * Vitals:?Ht: 64, Wt: 186, BMI :31.92, BP:102/60, Wt-k.37. weight is up 5 pounds since 04-04-24. * ???Past Orders: ???Lab:Lipid Panel (Order Da te - 2024) (Collection Date & Time - 2024 07:36 AM) ? Value Reference Range ?Triglycerides 74 <150 - mg/dL ?Cholesterol 148 <200 - m g/dL ?LDL Cholesterol Calculated 71 <100 - mg/dL ?HDL Cholesterol 63 >40 - mg/dL ???Lab:Complete Blood Count Auto Diff (Order Date - 2024) (Collection Date & Time - 2024 07:36 AM) ? Value Reference Range ?White Blood Count 6.2 4. 8-10.8 - X10*3/uL ?Red Blood Count 4.28 4.20 -5.50 - X10*6/uL ?Hemoglobin 10.9 L 12.0-16.0 - g/dl ?Hematocrit 36.2 L 37.0-47.0 - % ?Mean Corpuscular Volume 84.6 80.0-98.0 - fL ?Mean Corpuscular Hemoglobin 25.5 L 27.0-33.0 - pg ?Mean Corpuscular HGB Conc 30.1 L 31.0-35.0 - g/dl ?Red Cell Distributio n Width 13.9 11.0-16.0 - % ?Platelet Count 211 160-4 00 - X10*3/uL ?Mean Platelet Volume 11.2 9.4-12.3 - fL ?Neutrophils Percent Auto 53.8 45-73 - % ?Imm Gran Pct Auto 0.3 0. 0-0.4 - % ?Lymphocytes Percent Auto 27.9 20-40 - % ?Monocytes Percent Auto 13.3 H 2-11 - % ?Eosinophils Percent Auto 3.9 0-4 - % ?Basophils Percent Auto 0.8 0-2 - % ?NRBC Pct Auto 0.0 0.0-0. 2 - /100WBC ?Neutrophils Absolute Auto 3.4 2.0-8.3 - x10*3/uL ?Imm Gran Abs Auto 0.02 0. 00-0.03 - X10*3/uL ?Lymphocytes Absolute Auto 1.7 1.2-4.9 - X10*3/uL ?Monocytes Absolute Auto 0.8 0.1-1.2 - X10*3/uL ?Eosinophils Absolute Auto 0.2 0.0-0.4 - X10*3/uL ?Basophils Absolute Auto 0.1 0.0-0.2 - X10*3/uL ?NRBC Abs Auto 0.000 0.0-0. 012 - X10*3/uL ???Lab:UA ClnCatch+Micro w/r flx Cult (Order Date - 2024) (Collection Date & Time - 2024 07:36 AM) ? Value Reference Range ?Color Urine Yellow - ?Appearance Urine Cloudy - ?PH 7.0 5.0-9.0 - ?Glucose Urine UA Negative Neg ative - mg/dL ?Urine Blood Negative Negative - ?Specific [place] - Urine 1.020 1.005-1.025 - ?Urine Protein Trace Neg-Tr john - mg/dL ?Urine Ketones Negative Negati ve - mg/dL ?Nitrite Urine Positive A Negati ve - ?Leukocyte Esterase Urine Moderate (2+) A Negative - ?RBC Urine 0-2 0-2 - /HPF ?WBC Urine 11-20 A 0-5 - /HPF ?Squamous Epithelial Cell Urine 3-5 0-2 - /HPF ?Bacteria Urine 4+ None Seen - ?Hyaline Casts Urine 3-5 0-2 - /LPF ???Lab:Comprehensive Duson. P urbano Fast (Order Date - 2024) (Collection Date & Time - 2024 07:36 AM) ? Value Reference Range ?Sodium 137 135-145 - mmo l/L ?Bilirubin Total 0.5 0.0- 1.0 - mg/dL ?Aspartate Amino Transferase 29 5-31 - U/L ?Alanine Aminotransferase 11 0-31 - U/L ?Total Protein 7.2 6.5-8. 0 - g/dL ?Albumin Level 3.8 3.5-5. 0 - g/dL ?Alkaline Phosphatase 88 39-117 - U/L ?Potassium 3.8 3.3-5.1 - mmol/L ?Chloride 92 L 96-108 - mm ol/L ?Carbon Dioxide 36 H 22-29 - mmol/L ?Anion Gap 13 12-20 - ?Blood Urea Nitrogen 30 H 9-16 - mg/dL ?Creatinine 1.18 0.5-1.4 - mg/dL ?Estimated Glomerular Filt Rate 45 - ?Glucose Fasting 81 60-9 9 - mg/dL ?Calcium 9.4 8.4-10.2 - m g/dL * Examination: ???General Examination: ?GENERAL APPEARANCE:?well developed, well nourished, in no acute distress.?HEAD:?normocephalic, atraumatic.?EYES:?pupils equal, round, reactive to light and accommodation, sclera non-icteric.?EARS:?normal.?ORAL CAVITY:?mucosa moist.?THROAT:?clear.?NECK/THYROID:?neck supple, full range of motion, no cervical lymphadenopathy, no bruits.?SKIN:?warm and dry, no suspicious lesions.?HEART:?regular rate and rhythm, S1, S2 normal, no murmurs.?LUNGS:?clear to auscultation bilaterally.?BREASTS:?No mass, no lump.?ABDOMEN:?soft, nontender, nondistended, bowel sounds present, normal, no organomegaly , no masses palpable.?RECTAL EXAM:?declined.?FEMALE GENITOURINARY:?declined.?EXTREMITIES:?no clubbing, cyanosis, or edema.?NEUROLOGIC:?nonfocal, motor strength normal upper and lower extremities, sensory exam intact.? Assessment: * Assessment: 1.?UTI (urinary tract infect ion) - N39.0???2.?Essential hypertension - I10???3.?Anxiety, generalized - F41.1???4.?Acquired hypothyroidism - E03.9???5.?Gastroesophageal reflux disease without esophagitis - K21.9 ??6.?Hypercholesterolemia - E78.00???7.?Acute systolic congestive heart failure - I50.21??? Plan: * Treatment: 2.?Essential hypertension? Continue Lisinopril-hydroCHLOROthiazide Tablet, 20-12.5 MG, TAKE ONE TABLET BY MOUTH ONCE DAILY;?Continue Metoprolol Succinate ER Tablet Extended Release 24 Hour, 50 MG, take 1 tablet by mouth once daily.?? Notes: stable, will continue current regiment?? Clinical Notes: stable?? 3.?Anxiety, generalized? Start Escitalopram Oxalate Tablet, 10 MG, 1 tablet, Orally, Once a day, 30 days, 30, Refills 3.?? Notes: patient verbalized understanding of medication and directions for use?? Clinical Notes: doing well, w?? 4.?Acquired hypothyroidism? Continue Levothyroxine Sodium Tablet, 50 MCG, TAKE ONE TABLET BY MOUTH ONCE DAILY.?? Notes: stable, will continue current regiment?? 5.?Gastroesophageal reflux d isease without esophagitis? Continue Omeprazole Capsule Delayed Release, 20 MG, TAKE ONE CAPSULE BY MOUTH ONCE DAILY.?? Notes: stable, will continue current regiment?? 6.?Hypercholesterolemia? Continue Atorvastatin Calcium Tablet, 40 MG, TAKE ONE TABLET BY MOUTH ONCE DAILY.?? Notes: stable, will continue current regiment?? 7.?Acute systolic congestive heart failure? Continue Verapamil HCl ER Tablet Extended Release, 120 MG, TAKE ONE TABLET BY MOUTH ONCE DAILY;?Continue Furosemide Tablet, 40 MG, 1 tablet, Orally, Once a day.?? Notes: stable, will continue current regiment?? * Follow Up:?2 Months * * The named appointment provid er may or may not be the originator of this progress note, and it is not deemed complete until electronically signed by the appointment provider. Sign off status: Pending * Provider:?Rai Fabian MD Date:?0 05/06/2024 Generated for Sienna darby/Dash/Bennieitting on:?05/06/2024 03:05 PM EST History and Physical Notes * HPI (History of Present Illness) Category Sub-Category Detail Notes Category Not es Depression Screening PHQ-9 Little inte rest or pleasure in doing things: Not at all patient is a 74 yo female here for yearly evaluation with review of recent labs and follow up of chronic issues, .. saw dr recinos yesterday. don't have the results yet. is sending her to pulmonary. [facility]. Feeling down, depressed, or hopeless: No t at all Trouble falling or staying asleep, or sl eeping too much: Not at all Feeling tired or having little energy: N ot at all Poor appetite or overeating: Not at all Feeling bad about yourself o r that you are a failure, or have let yourself or your family down: Not at all Trouble concentrating on thi ngs, such as reading the newspaper or watching television: Not at all Moving or speaking so slowly that other people could have noticed; or the opposite, being so fidgety or restless that you have been moving around a lot more than usual: Not at all Thoughts that you would be b chely off or of hurting yourself in some way: Not at all Total Score: 0 Interpretation and Intervention Depression Viji dumont Findings: Negative Follow-Up for Depression: : review of PH Q-9 found negative result, no follow-up needed SDOH Questions SDOH Questions In the past year have you been worried about losing housing?: No In the past year have you or any family members you live with been unable to get any of the following when it was really needed? Check all that apply:: None Fall Risk History Have you had any falls with injury i n the past year?: No Have you had two or more falls in the year?: No Communication Needs Communication Needs Does the patient have a hearing impairment: No Does the patient have a vision impairmen t?: Yes ?If yes, what is the vision impairment?: Glasses Does the patient have a cognition impair ment?: No Examination Category Sub-Category Detail Notes Category Not es General Examination GENERAL APPEARANCE: well dev eloped, well nourished, in no acute distress HEAD: normocephalic, atrau matic EYES: pupils equal, round, reactive to light and accommodation, sclera non- icteric EARS: normal THROAT: clear NECK/THYROID: neck supple, full ra nge of motion, no cervical lymphadenopathy, no bruits HEART: regular rate and rhy thm, S1, S2 normal, no murmurs LUNGS: clear to auscultatio n bilaterally ABDOMEN: soft, nontender, non distended, bowel sounds present, normal, no organomegaly , no masses palpable NEUROLOGIC: nonfocal, motor stre ngth normal upper and lower extremities, sensory exam intact SKIN: warm and dry, no edwin picious lesions EXTREMITIES: no clubbing, cyanosi s, or edema BREASTS: No mass, no lump RECTAL EXAM: declined FEMALE GENITOURINARY: declined ORAL CAVITY: mucosa moist
--- OUTSIDE RECORDS SUMMARY | 2024-05-06 15:06 | XMS_ITS ---
Author Organization [facility] Address [address] [place] [address] Care Team Providers Care Crate Repairer Name Role Phone Rai Fabian MD Primary Care Provider Travis Perez [phone] Encounters Encounter Location Date Provider Diagnosis [facility] [address] [place] [address] 07/03/2023 Travis Taylor PLAN OF TREATMENT No Information
--- OUTSIDE RECORDS SUMMARY | 2024-05-06 15:06 | XMS_ITS ---
Author Organization Rai Fabian MD Address [address] [place] [address] [phone] Support Name Relationship Address Phone Rai Fabian Caregiver [facility] [address] [place] [address] [phone] Nicole Díaz Caregiver [facility] [address] [place] [address] [phone] Raheel Morley Caregiver [facility] [address] [place] [address] [phone] Travis Taylor Caregiver [facility] [address] [place] [address] [phone] May Landis Caregiver [facility] [address] [place] [address] [phone] DOROTHY GONZALEZ Caregiver [address] [facility] [address] [place] [address] [phone] Lele Childress Caregiver 10 [facility] [address] [place] [address] [phone] BILL MEDINA Caregiver [address] [facility] [address] [place] [address] [phone] Judy Woods Caregiver [address] [facility] [address] [place] [address] [phone] CAMILLE SINGER Caregiver [address] [facility] [address] [place] [address] [phone] ANILA BATES Caregiver [address] [place] [address] [phone] TRAVIS COFFEY Emergency Contact Unknown Mandie Gonzalez Guarantor Unknown [phone] Care Team Providers Care Raisin Separator Operator Name Role Phone Rai Fabian Primary Care Provider [phone] Results Component Value Reference Range Notes Complete Blood Count Auto Di ff Reviewed date:2024 01:37:22 PM Interpretation: Performing Lab:[facility], [address] [place] [phone] Notes/Report: White Blood Count 6.2 4.8-10.8 X10*3/uL Red Blood Count 4.28 4.20-5.50 X10*6/uL Hemoglobin 10.9 12.0-16.0 g/dl Hematocrit 36.2 37.0-47.0 % Mean Corpuscular Volume 84.6 80.0-98.0 fL Mean Corpuscular Hemoglobin 25.5 27.0-33.0 pg Mean Corpuscular HGB Conc 30.1 31.0-35.0 g/dl Red Cell Distribution Width 13.9 11.0-16.0 % Platelet Count 211 160-400 X10*3/uL Mean Platelet Volume 11.2 9.4-12.3 fL Neutrophils Percent Auto 53.8 45-73 % Imm Gran Pct Auto 0.3 0.0-0.4 % Lymphocytes Percent Auto 27.9 20-40 % Monocytes Percent Auto 13.3 2-11 % Eosinophils Percent Auto 3.9 0-4 % Basophils Percent Auto 0.8 0-2 % NRBC Pct Auto 0.0 0.0-0.2 /100WBC Neutrophils Absolute Auto 3.4 2.0-8.3 x10*3/u L Imm Gran Abs Auto 0.02 0.00-0.03 X10*3/uL Lymphocytes Absolute Auto 1.7 1.2-4.9 X10*3/u L Monocytes Absolute Auto 0.8 0.1-1.2 X10*3/uL Eosinophils Absolute Auto 0.2 0.0-0.4 X10*3/u L Basophils Absolute Auto 0.1 0.0-0.2 X10*3/uL NRBC Abs Auto 0.000 0.0-0.012 X10*3/uL Comprehensive [place]. Panel Fa st Reviewed date:2024 05:58:39 PM Interpretation: Performing Lab:[facility], [address] [place] [phone] Notes/Report: Sodium 137 135-145 mmol/L Potassium 3.8 3.3-5.1 mmol/L Chloride 92 96-108 mmol/L Carbon Dioxide 36 22-29 mmol/L Anion Gap 13 12-20 Blood Urea Nitrogen 30 9-16 mg/dL Creatinine 1.18 0.5-1.4 mg/dL Estimated Glomerular Filt Rate 45 Chronic Kidney Disease: Estimated GFR < 60 mL/min/1.73m2 Severe Kidney Disease: Estimated GFR < 15 mL/min/1.73m2 Glucose Fasting 81 60-99 mg/dL Calcium 9.4 8.4-10.2 mg/dL Bilirubin Total 0.5 0.0-1.0 mg/dL Aspartate Amino Transferase 29 5-31 U/L Alanine Aminotransferase 11 0-31 U/L Total Protein 7.2 6.5-8.0 g/dL Albumin Level 3.8 3.5-5.0 g/dL Alkaline Phosphatase 88 39-117 U/L Lipid Panel Reviewed date:2024 12:32:35 PM Interpretation: Performing Lab:[facility], [address] [place] [phone] Notes/Report: Triglycerides 74 <150 mg/dL Desirable Triglyceride: less than 150 mg/dL Borderline High Triglyceride 150-199 mg/dL High Triglyceride: 200-499 mg/dL Very High Triglyceride: greater than or equal to 5OO mg/dL Cholesterol 148 <200 mg/dL Desirable Cholesterol: less than 200 mg/dL Borderline High Cholesterol: 200-239 mg/dL High Cholesterol: greater than 239 mg/dL LDL Cholesterol Calculated 71 <100 mg/dL Desirable LDL: less than 100 mg/dL Near Optimal/Above Optimal LDL: 110-129 mg/dL Borderline High LDL: 130-159 mg/dL High LDL: 160-189 mg/dL Very High LDL: greater than or equal to 190 mg/dL HDL Cholesterol 63 >40 mg/dL Desirable HDL: greater than 40 mg/dL Note: This HDL assay may give artificially low results in patients with liver disease. UA ClnCatch+Micro w/rflx Cul t Reviewed date:2024 05:59:06 PM Interpretation: Performing Lab:[facility], [address] [place] [phone] Notes/Report: [id number] Urine, Clean Catch Color Urine Yellow Appearance Urine Cloudy PH 7.0 5.0-9.0 Glucose Urine UA Negative Negative mg/dL Urine Blood Negative Negative Specific [place] - Urine 1.020 1.005-1.025 Urine Protein Trace Neg-Trace mg/dL Urine Ketones Negative Negative mg/dL Nitrite Urine Positive Negative Leukocyte Esterase Urine Moderate (2+) Negative RBC Urine 0-2 0-2 /HPF WBC Urine 11-20 0-5 /HPF Squamous Epithelial Cell Urine 3-5 0-2 /HPF Bacteria Urine 4+ None Seen Hyaline Casts Urine 3-5 0-2 /LPF REASON FOR VISIT yearly fasting labs Encounters Encounter Location Date Provider Diagnosis Rai Fabian MD [address] [place] [address] [place] [address] [phone] 2024 Rai Fabian Acquired hypothyroid ism E03.9 ; Essential hypertension I10 ; Lymphocytosis D72.820 and Hypercholesterolemia E78.00 Assessments Encounter Date Diagnosis (ICD Code) Assessment Notes Treatment Notes Treatment Clinical Notes Section Notes 2024 Acquired hypothyroid ism (ICD-10 - E03.9) 2024 Essential hypertensi on (ICD-10 - I10) 2024 Lymphocytosis (ICD-1 0 - D72.820) 2024 Hypercholesterolemia (ICD-10 - E78.00) Plan Of Treatment Pending Test Test Name Order Date PSA,Total (Free>4and<10) 2024 TSH reflex Free T4 2024 Next Appt Details Provider Name:Rai trotter, 07/04/2024 02:00:00 PM, [address] [place] [address], [address] [place] [address], [phone], Provider Name:Rai trotter, 10/28/2024 07:45:00 AM, [address] [place] [address], [address], [phone], Provider Name:Rai trotter, 11/04/2024 02:00:00 PM, [address] [place] [address], [address], [phone], Provider Name:Rai trotter, 05/04/2025 07:15:00 AM, [address], [address], [place], [phone], Provider Name:Rai Colin ier, 05/11/2025 02:30:00 PM, [address], [address], [place], [phone], Progress Notes * Aaron GONZALEZOB: 9 (74 yo F)Acc No.[id number]:2024 Progress Note Patient:?Mandie GONZALEZ Provider:?Rai Fabian MD :1950???Age:74 Y???Sex:Female D ate:2024 Address:[address] [place] [address], [phone] Subjective: * Chief Complaints: * ???1. Yearly fasting labs. * Medical History:? Objective: * Vitals:? Assessment: * Assessment: 1.?Acquired hypothyroidism - E03.9 (Primary)???2.?Essential hypertension - I10???3.?Lymphocytosis - D72.820???4.?Hypercholesterolemia - E78.00??? Plan: * Treatment: 2.?Essential hypertension?LAB: PSA,Total (Free>4and<10) ?LAB: TSH reflex Free T4 ?LAB: Complete Blood Count Auto Diff (Collection Date & Time - 2024 07:36 AM) ?LAB: Comprehensive [place]. Panel Fast (Collection Date & Time - 2024 07:36 AM) ?LAB: Lipid Panel (Collection Date & Time - 2024 07:36 AM) ?LAB: UA ClnCatch+Micro w/rflx Cult (Collection Date & Time - 2024 07:36 AM) 3.?Lymphocytosis?LAB: PSA,Total (Free>4and<10) ?LAB: TSH reflex Free T4 ?LAB: Complete Blood Count Auto Diff (Collection Date & Time - 2024 07:36 AM) ?LAB: Comprehensive [place]. Panel Fast (Collection Date & Time - 2024 07:36 AM) ?LAB: Lipid Panel (Collection Date & Time - 2024 07:36 AM) ?LAB: UA ClnCatch+Micro w/rflx Cult (Collection Date & Time - 2024 07:36 AM) 4.?Hypercholesterolemia?LAB: PSA,Total (Free>4and<10) ?LAB: TSH reflex Free T4 ?LAB: Complete Blood Count Auto Diff (Collection Date & Time - 2024 07:36 AM) ?LAB: Comprehensive [place]. Panel Fast (Collection Date & Time - 2024 07:36 AM) ?LAB: Lipid Panel (Collection Date & Time - 2024 07:36 AM) ?LAB: UA ClnCatch+Micro w/rflx Cult (Collection Date & Time - 2024 07:36 AM) * Procedure Codes:?92331 VENIP UNCT, ROUTINE* * * The named appointment provid er may or may not be the originator of this progress note, and it is not deemed complete until electronically signed by the appointment provider. Sign off status: Pending * Provider:?Rai Fabian MD Date:?0 2024 Generated for Sienna darby/Dash/Bennieitting on:?05/06/2024 03:06 PM EST
--- OUTSIDE RECORDS SUMMARY | 2024-05-06 15:06 | XMS_ITS ---
Author Organization Rai Fabian MD Address [address] [place] [address] [phone] Support Name Relationship Address Phone Rai Fabian Caregiver [facility] [address] [place] [address] [phone] Nicole Díaz Caregiver [facility] [address] [place] [address] [phone] Raheel Morley Caregiver [facility] [address] [place] [address] [phone] Travis Taylor Caregiver [facility] [address] [place] [address] [phone] May Landis Caregiver [facility] [address] [place] [address] [phone] DOROTHY GONZALEZ Caregiver [facility] [address] [place] [address] [phone] Lele Childress Caregiver 10 [facility] [address] [place] [address] [phone] BILL MEDINA Caregiver [facility] [address] [place] [address] [phone] Judy Woods Caregiver [facility] [address] [place] [address] [phone] CAMILLE SINGER Caregiver [address] [facility] [address] [place] [address] [phone] ANILA BATES Caregiver [address] [place] [address] [phone] TRAVIS COFFEY Emergency Contact Unknown Mandie Gonzalez Guarantor Unknown [phone] Care Team Providers Care Executive Pilot Name Role Phone Rai Fabian Primary Care Provider Medications Medication SIG (Take, Route, Fr equency, Duration) Notes Start Date End Date Status Cephalexin 500 MG 1 capsule Orally efren ry 8 hrs for 5 days 04/12/2024 Active Encounters Encounter Location Date Provider Diagnosis Rai Fabian MD [address] [place] [address] [place] [address] [phone] 04/12/2024 Rai Fabian Plan Of Treatment Medication Medication Name Sig Start Date Stop Date Notes Cephalexin 500 MG 1 capsule Orally every 8 hrs for 5 days 04/12/2024 Next Appt Details Provider Name:Rai trotter, 07/04/2024 02:00:00 PM, [address] [place] [address], [address], [phone], Provider Name:Rai trotter, 10/28/2024 07:45:00 AM, [address] [place] [address], [phone], Provider Name:Rai trotter, 11/04/2024 02:00:00 PM, [address] [place] [address], [address], [phone], Provider Name:Rai trotter, 05/04/2025 07:15:00 AM, [address] [place] [address], [address], [phone], Provider Name:Rai trotter, 05/11/2025 02:30:00 PM, [address] [place] [address], [address], [phone], Progress Notes * Aaron GONZALEZOB: (74 yo F)Acc No.[id number]:04/12/2024 Patient:?Mandie Gonzalez :1950???Age:74 Y???Sex:Female Address:[address] [place], [place] [address] [place] [address] * Refills? Start Cephalexin Capsule, 500 MG, Orally, 15 Capsule, 1 capsule, every 8 hrs, 5 days * true * Date:? Generated for Sienna darby/Dash/Bennieitting on:?05/06/2024 03:05 PM EST
[2024-05-06 15:12] LABS: Appearance Urine Clear; Color Urine Yellow; Glucose Urine UA Negative (Negative); Leukocyte Esterase Urine Negative (Negative); Nitrite Urine Positive (Negative); PH 6.5 (5.0-9.0); UMIC TRIGGER UACC YES; Urine Blood Negative (Negative); Urine Ketones Negative (Negative); Urine Protein Negative (Neg-Trace)
[2024-05-06 15:14] LABS: Bacteria Urine 4+ (None Seen); Hyaline Casts Urine 0-2 /LPF (0-2); RBC Urine 0-2 /HPF (0-2); Squamous Epithelial Cell Urine 0-2 /HPF (0-2); UACC Culture Trigger YES; WBC Urine 0-5 /HPF (0-5)
== END 2024-05-06 13:46 | disposition home or self-care (01) ==
LOC: HO.LNP 13:45
PROVIDERS: Visit Provider Internal Medicine
DX: N39.0 Urinary tract infection, site not specified (principal)
CPT/HCPCS: 81001; 87086; 87088; 87186

== ENCOUNTER 2024-07-14 13:58 | Inpatient (IN) | payer MEDICARE, SELFPAY ==
--- NOTE | ~2024-07-14 | XR_ITS ---
EXAMINATION: XR CHEST CLINICAL INFORMATION: sob +covid COMPARISON: March 29, 2024. TECHNIQUE: Frontal view of the chest was obtained. FINDINGS: Elevated right hemidiaphragm, unchanged. Hepatic colonic flexure below the right hemidiaphragm, unchanged. No consolidation pleural effusion or pneumothorax. Cardiomediastinal silhouette size is normal. S-shaped curvature of the thoracolumbar junction deforming the rib cage/ chest. Metallic prosthesis both shoulders. XR/XR chest 1V IMPRESSION: No acute airspace disease. Electronically signed by: Phil Luciano MD 07/14/2024 03:21 PM EDT
[2024-07-14 14:14] VITALS: BP 138/88; PULSE 106; RESP 16; TEMP 36.6; O2SAT 95; BMI 31.1
--- NOTE | 2024-07-14 14:14 | ED.SOB ---
HPI - SOB/Dyspnea General Chief Complaint: Weakness Stated Complaint: Positive For Covid - Weakness, Trouble Breathing Time Seen by Provider: 07/14/24 21:37 Source: patient Mode of arrival: wheelchair Limitations: no limitations History of Present Illness ED Provider: Anneliese Lanza NP HPI Narrative: Patient is a 74-year-old female with past medical history of osteoarthritis, atrial fibrillation anticoagulated on Eliquis, CVA, hypertension, hypothyroidism, GERD, anxiety who presents emergency department for evaluation. She reports approximately 4 days or feeling generally unwell, fatigue, weakness, shortness of breath, headache, and stomach discomfort. Two days ago had a positive COVID-19 test. She took 2 doses of Paxlovid prescribed her, but stopped taking due to stomach upset. She states that today she was significantly short of breath with minimal exertion and felt tightness in her chest. She called her daughter from [place] then asked her to come down. She states that despite using her walker she feels very weak and short of breath. She denies known fevers, chills, sore throat, difficulty swallowing, neck pain, nausea, vomiting, abdominal pain, numbness or tingling of the extremities, recent lower extremity pain or swelling. Related Data Home Medications ?Medication ?Instructions ?Recorded ?Confirmed apixaban 5 mg tablet (Eliquis) 5 mg PO BID 03/27/20 05/29/23 atorvastatin 40 mg tablet 40 mg PO BEDTIME 03/27/20 05/29/23 conj estrogen-medroxyprogesterone 1 tab PO DAILY 03/27/20 05/29/23 0.625 mg-2.5 mg tablet (Prempro) omeprazole 20 mg capsule,delayed 20 mg PO DAILY@0630 03/27/20 05/29/23 release verapamil 120 mg 24 hr 120 mg PO DAILY 03/27/20 05/29/23 capsule,extended release njhehanykb-yydrmqcdzztph-lutfdhhe 1 tab PO Q6H PRN Migraine Headache 05/13/21 05/29/23 50 mg-325 mg-40 mg tablet gabapentin 400 mg capsule 2 cap PO BID 05/13/21 05/29/23 hydrocodone 5 mg-acetaminophen 325 1 tab PO BID PRN Pain (Scale Score 05/13/21 05/29/23 mg tablet 4-6) ondansetron HCl 4 mg tablet 1 tab PO BEDTIME PRN Nausea And 05/13/21 05/29/23 Vomiting albuterol sulfate 90 mcg/actuation 2 puff inhalation Q4-6H PRN 05/29/23 05/29/23 aerosol inhaler Shortness Of Breath Or Wheezing levothyroxine 50 mcg tablet 50 mcg PO DAILY@0630 05/29/23 05/29/23 lisinopril 20 1 tab PO DAILY 05/29/23 05/29/23 mg-hydrochlorothiazide 12.5 mg tablet metoprolol succinate 50 mg 50 mg PO DAILY 05/29/23 05/29/23 tablet,extended release 24 hr mirabegron 25 mg tablet,extended 25 mg PO DAILY 05/29/23 05/29/23 release 24 hr (Myrbetriq) Previous Rx's ?Medication ?Instructions ?Recorded cefuroxime axetil 250 mg tablet 250 mg PO BID #9 tabs 06/02/23 hydroxyzine HCl 25 mg tablet 25 mg PO Q8H PRN 06/02/23 Anxiety/Restlessness #20 tabs Allergies Allergy/AdvReac Type Severity Reaction Status Date / Time No Known Allergies Allergy Mild N/A Verified 07/14/24 14:17 Review of Systems Review of Systems: Yes all other systems are reviewed and are negative PMFSH Past Medical History Attestation statement: The following information was validated with the patient. Source: old records reviewed Medical History Essential hypertension Persistent atrial fibrillation Primary osteoarthritis involving multiple joints Anxiety GERD (gastroesophageal reflux disease) Carpal tunnel syndrome Stroke Hypothyroidism Arthritis HTN (hypertension) Asthma Obesity Chronic pain Surgical History History of left shoulder replacement History of right shoulder replacement S/P panniculectomy Hx of cholecystectomy S/P foot surgery, right History of bladder surgery History of tonsillectomy Family History Family History Father CVD (cardiovascular disease) Diabetes Mother CVD (cardiovascular disease) HTN (hypertension) Social History Social History Household Members: Spouse Housing: Condominium Do you presently have visiting nurse or other home services: No Unable to assess alcohol history related to: Unknown Alcohol intake: never Patient Tobacco Use Status: Never used Tobacco Smoked in Last 30 Days: No e-Cigarette/Vaping Use: Never Used Use of substances other than those prescribed or required for medical reasons: No Advance Directives: Yes Advance Directives on File: Yes Advance Directives Date on File: 06/02/23 Do you have a plan to hurt others: No Plan service: No Current occupational status: retired Physical Exam Vital Signs: Vital Signs: Last Vital Signs Temp 97.6 F 07/14/24 20:30 Pulse 93 07/14/24 20:30 Resp 16 07/14/24 20:30 BP 148/91 H 07/14/24 20:30 Pulse Ox 97 07/14/24 22:37 O2 Del Method Room Air 07/14/24 22:37 BMI result Body Mass Index 31.1 Appearance: Alert.?Oriented to person, place and time. No acute distress.?Normal affect. Eyes: Pupils equal, round and reactive to light.? ENT: Pharynx normal.?? Neck: Normal inspection.? Neck supple.?? CVS: Heart sounds normal. Normal heart rate and rhythm.? Pulses normal.?? Respiratory: No respiratory distress.? Lung sounds clear to auscultation bilaterally?? Abdomen: Soft and non-tender. Normoactive bowel sounds. Skin: Skin warm and dry.? Normal skin color.? Extremities: No lower extremity edema.? No calf ttp? Neuro: Moves all extremities spontaneously. Sensation intact bilaterally. No focal neuro deficits. Ambulates with normal steady gait. Course Course Course Narrative: This is a Rapid Medical Exam performed in triage by Tara Simpson PA-C. Full HPI, ROS and PE to be performed by primary ED provider. 74-year-old female with a past medical history osteoarthritis, recent COVID-19 (tested positive on Thursday) presenting to the ED c/o SOB, LOPEZ, diarrhea, fatigue, weakness x 2 days. denies cough, CP PE: In wheelchair, talking in complete sentences, nontoxic appearing, VSS Plan: EKG, labs, UA Medications Administered Generic Name Dose Route Start Last Admin Trade Name Freq PRN Reason Stop Dose Admin Acetaminophen 975 mg 07/15/24 00:21 07/15/24 01:11 Acetaminophen 325 Mg Tablet PO 975 mg Q6H PRN Administration Pain, Mild 1-3,fever,headache Methylprednisolone Sodium Succinate 40 mg 07/15/24 00:30 07/15/24 01:12 Methylprednisolone Sod Succ 40 Mg/Ml Vial IVPUSH 40 mg 0000,1200 CORY Administration Medical Decision Making Medical Decision Making [facility] Narrative: Patient is a 74-year-old female with past medical history of osteoarthritis, atrial fibrillation anticoagulated on Eliquis, CVA, hypertension, hypothyroidism, GERD, anxiety, asthma and reported severe scoliosis that impacts or breathing chronically who presents emergency department for evaluation of progressive shortness of breath, dyspnea on exertion setting of COVID-19 infection. She arrives in a wheelchair, at rest she is Overall well-appearing, nontoxic, afebrile, no respiratory distress. She is notably dyspneic with minimal exertion. An ambulatory O2 trial was attempted with a walker, and had desaturation down to 78% on room air with good pleath, recovered well at rest on room air. Reviewed serum labs obtained prior to my assumption of care, CBC reveals a leukopenia with chronic stable anemia, mild thrombocytopenia. D-dimer <150, not consistent with pulmonary embolism and she is already anticoagulated. No electrolyte derangement. No BURKE. Chest x-ray without evidence of pneumonia. Given her significant hypoxia and dyspnea on minimal exertion, will plan for admission to medicine service, will consult with hospitalist Differential Diagnosis Differential Diagnoses: The differential diagnosis associated with the presentation includes (See narrative above) Admission/Observation Consideration of admission/observation: Escalation of care including admission/observation considered Consult Healthcare Provider Management of the patient was discussed with: Hospitalist Lab Data [facility] Lab Attestation statement: I reviewed the patient's lab results. (See narrative above) 07/14/24 14:56 07/14/24 14:56 Labs: Lab Results 07/14/24 07/14/24 Range/Units 14:56 21:53 WBC 4.1 L (4.8-10.8) X10*3/uL RBC 4.28 (4.20-5.50) X10*6/uL Hgb 11.3 L (12.0-16.0) g/dl Hct 36.4 L (37.0-47.0) % MCV 85.0 (80.0-98.0) fL MCH 26.4 L (27.0-33.0) pg MCHC 31.0 (31.0-35.0) g/dl RDW 16.3 H (11.0-16.0) % Plt Count 124 L D (160-400) X10*3/uL MPV 9.5 (9.4-12.3) fL Immature Gran % (Auto) 0.2 (0.0-0.4) % Neut % (Auto) 55.2 (45-73) % Lymph % (Auto) 30.5 (20-40) % [place] % (Auto) 13.4 H (2-11) % Eos % (Auto) 0.2 (0-4) % Baso % (Auto) 0.5 (0-2) % Lymph # (Auto) 1.3 (1.2-4.9) X10*3/uL [place] # (Auto) 0.6 (0.1-1.2) X10*3/uL Eos # (Auto) 0.0 (0.0-0.4) X10*3/uL Baso # (Auto) 0.0 (0.0-0.2) X10*3/uL Abs Immat Gran (auto) 0.01 (0.00-0.03) X10*3/uL Absolute Neuts (auto) 2.3 (2.0-8.3) x10*3/uL Absolute Nucleated RBC 0.000 (0.0-0.012) X10*3/uL Nucleated RBC % (auto) 0.0 (0.0-0.2) /100WBC PT 15.5 H (10.9-12.4) SEC INR 1.3 H (0.9-1.1) D-Dimer High Sensitivty < 150 NG/ML Sodium 140 (135-145) mmol/L Potassium 4.5 (3.3-5.1) mmol/L Chloride 104 (96-108) mmol/L Carbon Dioxide 26 (22-29) mmol/L Anion Gap 15 (12-20) BUN 20 H (9-16) mg/dL Creatinine 1.07 (0.5-1.4) mg/dL Estim Creat Clear Calc 48.0 Estimated GFR 50 Random Glucose 100 (60-115) mg/dL Calcium 9.8 (8.4-10.2) mg/dL Magnesium 1.8 (1.6-2.6) mg/dL Total Bilirubin 0.3 (0.0-1.0) mg/dL Direct Bilirubin 0.1 (0.0-0.5) mg/dL AST 49 H (5-31) U/L ALT 23 (0-31) U/L Alkaline Phosphatase 59 (39-117) U/L Total Protein 6.9 (6.5-8.0) g/dL Albumin 3.7 (3.5-5.0) g/dL Independent Interpretation I performed an independent interpretation of an: EKG and Plain X-Ray (See narrative above) Radiology Impression Discussion of test interpretation with radiology: I have reviewed the radiologist's reading. Radiologist Impression: Frontal view of the chest was obtained. FINDINGS: Elevated right hemidiaphragm, unchanged. Hepatic colonic flexure below the right hemidiaphragm, unchanged. No consolidation pleural effusion or pneumothorax. Cardiomediastinal silhouette size is normal. S-shaped curvature of the thoracolumbar junction deforming the rib cage/ chest. Metallic prosthesis both shoulders. XR/XR chest 1V IMPRESSION: No acute airspace disease Independent Historian Clinical information obtained from an independent historian. History obtained from or confirmed by: Spouse External Record Review External record reviewed: Outpatient record Chronic Conditions Patient?s care impacted by: Other (See narrative above) Discharge Plan Discharge Clinical Impression: Acute asthma exacerbation, COVID Patient Disposition: Admitted As Inpatient
--- NOTE | 2024-07-14 14:16 | ECG_ITS ---
Test Reason : WEAKNESS Blood Pressure : */* mmHG Vent. Rate : 96 BPM Atrial Rate : * BPM P-R Int : * ms QRS Dur : 82 ms QT Int : 474 ms P-R-T Axes : * -9 87 degrees QTcB Int : 598 ms Atrial fibrillation Nonspecific ST and T wave abnormality Abnormal ECG When compared with ECG of 30-May-2023 10:29, No significant changes seen Referred By: Tara Simpson Electronically Signed By: ANILA BATES
[2024-07-14 15:03] LABS: MANUAL DIFF FLAG NO
[2024-07-14 15:08] LABS: Basophils Percent Auto 0.5 % (0-2); Eosinophils Percent Auto 0.2 % (0-4); Hematocrit 36.4 % (37.0-47.0); Hemoglobin 11.3 g/dl (12.0-16.0); Imm Gran Abs Auto 0.01 X10*3/uL (0.00-0.03); Imm Gran Pct Auto 0.2 % (0.0-0.4); Lymphocytes Absolute Auto 1.3 X10*3/uL (1.2-4.9); Lymphocytes Percent Auto 30.5 % (20-40); Mean Corpuscular Hemoglobin 26.4 pg (27.0-33.0); Mean Platelet Volume 9.5 fL (9.4-12.3); Monocytes Absolute Auto 0.6 X10*3/uL (0.1-1.2); Monocytes Percent Auto 13.4 % (2-11); Neutrophils Absolute Auto 2.3 x10*3/uL (2.0-8.3); Neutrophils Percent Auto 55.2 % (45-73); Platelet Count 124 X10*3/uL (160-400); Red Blood Count 4.28 X10*6/uL (4.20-5.50); Red Cell Distribution Width 16.3 % (11.0-16.0); White Blood Count 4.1 X10*3/uL (4.8-10.8)
[2024-07-14 15:30] LABS: Alanine Aminotransferase 23 U/L (0-31); Albumin Level 3.7 g/dL (3.5-5.0); Alkaline Phosphatase 59 U/L (39-117); Anion Gap 15 (12-20); Aspartate Amino Transferase 49 U/L (5-31); Bilirubin Direct 0.1 mg/dL (0.0-0.5); Bilirubin Total 0.3 mg/dL (0.0-1.0); Blood Urea Nitrogen 20 mg/dL (9-16); Calcium 9.8 mg/dL (8.4-10.2); Carbon Dioxide 26 mmol/L (22-29); Chloride 104 mmol/L (96-108); Estimated Glomerular Filt Rate 50; Glucose Random 100 mg/dL (60-115); Magnesium 1.8 mg/dL (1.6-2.6); Potassium 4.5 mmol/L (3.3-5.1); Sodium 140 mmol/L (135-145); Total Protein 6.9 g/dL (6.5-8.0)
--- OUTSIDE RECORDS SUMMARY | 2024-07-14 18:48 | XMS_ITS | Patient Health Record ---
[facility] Address [address] [facility] [place] [address] Care Team Providers Care Chopped Strand Operator Name Role Phone Rai Fabian MD Primary Care Provider Valente Mendoza Unavailable [phone] Allergies No Known Allergies Reason For Referral [...] Status Risk Notes Problem Acquired hallux valgus (45120356) Hallux valgus (acquired), left foot (M20.12) Active confirmed Problem Localized, primary osteoarthritis of the ankle and/or foot (332548180) Primary osteoarthrit is, right ankle and foot (M19.071) Active confirmed Problem Localized, primary osteoarthritis of the ankle and/or foot (838310915) Primary osteoarthrit is, left ankle and foot (M19.072) Active confirmed Problem Acquired hallux valgus (47174054) Hallux valgus (acquired), right foot (M20.11) Active confirmed Problem Acquired hammer toe of right foot (6978599485807582) Other hammer toe(s) (acquired), right foot (M20.41) Active confirmed Problem Acquired hammer toe of left foot (1146594023709116) Other hammer toe(s) (acquired), left foot (M20.42) Active confirmed Plan Of Treatment Pending Test Test Name Order Date X ray : Ankle, left 2V 02/12/2021 X ray : Foot, left 2V 06/25/2015 X ray : Foot, right 2V 06/25/2015 X ray : Foot, left 3V 02/12/2021 X ray : Foot, right 3V 04/28/2016 [id number] NAIL, 1-5 08/16/2014, J0702- INJECT or DRAIN, JOINT/BUR SA 09/27/2018, J0702- INJECT or DRAIN, JOINT/BUR SA 03/25/2019, J0702- INJECT or DRAIN, JOINT/BUR SA 02/12/2021, J0702- INJECT or DRAIN, JOINT/BUR SA 06/12/2021, J0702- INJECT or DRAIN, JOINT/BUR SA 10/03/2019, J0702- INJECT or DRAIN, JOINT/BUR SA 09/03/2020, J0702- INJECT or DRAIN, JOINT/BUR SA 12/07/2020, Y0351-SMHVD/INJECT, JOINT/BURSA 0 12/07/2020, V4311-KMJUP/INJECT, JOINT/BURSA 0 10/03/2019, J4195-CVGOH/INJECT, JOINT/BURSA 0 06/12/2021, Q3878-GASQI/INJECT, JOINT/BURSA 0 03/25/2019, L7396-FLRYL/INJECT, JOINT/BURSA 0 09/27/2018, M2442-PJLBK/INJECT, JOINT/BURSA 0 12/01/2016, H2833-VQEAG/INJECT, JOINT/BURSA 1 04/18/201607829, Y7916-VTWKY/INJECT, JOINT/BURSA 0 04/08/201815613- Ganglion Cyst Injection/Aspiratio n 10/03/2019 76130, J0702- Neuroma/Injection 02/17/20 17 01071, J0702- Neuroma/Injection 08/06/19 16 89871, J0702- Neuroma/Injection 04/03/19 17 84232, J0702- Neuroma/Injection 07/16/19 17 05784, J0702- Neuroma/Injection 09/04/19 17 05109, J0702- Neuroma/Injection 12/02/19 17 Insurance Providers Payer Name Payer Address Payer Phone Subscriber Number Group Number Insured Name Patient Relationship to Insured Coverage Start Date Coverage End Date Medicare National [employer] [address] [place] [address] [id number] Mandie Gonzalez Self - patient is the insured [employer] [address] [place] [address] [id number] Mandie Gonzalez Self - patient is the insured Medical (General) History Medical History History ICD Code Arthritis Back,Hip,and Knee pain Chicken pox Measles Mumps Hypertension Thyroid disorder Surgical History Surgery Date(Month/Year) rotator cuff tear repair 09/2013 hand/wrist 04/2012 uterus surgery 09/2010 right foot - [facility] 04/2018 RFA Back 08/31/20 R shoulder replacement 11/06/2020 Hospitalization History Reason Date(Month/Year) [facility] [place] [facility] [place] 1 [place] /Rehab 3weeks 2021 admitted to [facility] [place]- stroke - discharged 09/01/2016 08/28/2016
[2024-07-14 20:30] VITALS: BP 148/91; PULSE 93; RESP 16; TEMP 36.4; O2SAT 96
[2024-07-14 22:03] LABS: INTERNATIONAL NORM RATIO 1.3 (0.9-1.1); Prothrombin Time 15.5 SEC (10.9-12.4)
[2024-07-14 22:10] LABS: D Dimer High Sensitivity < 150 NG/ML
[2024-07-14 22:36] VITALS: O2SAT 78
--- NOTE | 2024-07-14 22:36 | PC.NURSE ---
MYLA Murdock walked patient for walking O2 trial, patient desatted to 78% on RA, WOB noted. Provider Tad made aware. Recovered back to 96% on RA when back in stretcher.
[2024-07-14 22:37] VITALS: O2SAT 97
[2024-07-15] VITALS (7 sets, daily range): BP systolic 119–170; BP diastolic 55–100; PULSE 70–104; RESP 15–20; TEMP 36.6–37.2; O2SAT 95–98
--- NOTE | 2024-07-15 00:25 | PM.IMHP ---
History of Present Illness Date of Service: 07/14/24 Attending physician on admission: Altaf Anne Chief Complaint: shortness of breath pt is a 74 yo f with a pmhx significant for osteoarthritis, persisent a fib on , hx CVA, HTN. hypothyroid, GERD< anxiety, mild intermittent asthma, and migraines, who presented to the ED due to SOB, GRIFFIN and fatigue since Thursday. She tested positive for COVID at home on Thursday. she denies fever, chills, nausea or vomiting. no urinary sx. no hemoptysis or productive cough. in the ED her O2 dropped to 78% ORA with mild ambulation. she reports minimal wheezing and has not tried using her albuterol inhaler at home. she was prescribed paxlovid and took it for 2 days but could not tolerate it due to a terrible taste that caused nausea and vomiting. Review of Systems Constitutional: Constitutional: Denies body ache(s), Denies chills, Reports fatigue, Denies fever(s) and Reports headache(s) Eyes: Eyes: Denies change in vision and Denies photophobia ENT: Reports headache(s), Denies nasal congestion, Denies nasal discharge and Denies sore throat Cardiovascular: Cardiovascular: Denies chest pain, Denies rapid heart rate, Denies leg edema, Denies lightheadedness and Reports dyspnea Respiratory: Respiratory: Denies chest congestion, Reports cough, Reports dyspnea and Reports wheezing Gastrointestinal: Gastrointestinal: Denies diarrhea, Denies nausea and Denies vomiting Genitourinary: Genitourinary: Denies dysuria and Denies urinary urgency Musculoskeletal: Musculoskeletal: Denies back pain Integumentary/Breasts: Skin/Breast: Denies rash Neurologic: Denies confusion and Reports headache(s) Psychiatric: Psychiatric: Denies confusion Endocrine: Endocrine: Reports fatigue Hematologic/Lymphatic: Hematologic/Lymphatic: Denies easy bleeding and Denies easy bruising Allergic/Immunologic: Allergic/Immunologic: Reports wheezing [facility] Medical History Essential hypertension Persistent atrial fibrillation Primary osteoarthritis involving multiple joints Anxiety GERD (gastroesophageal reflux disease) Carpal tunnel syndrome Stroke Hypothyroidism Arthritis HTN (hypertension) Asthma Obesity Chronic pain Functional capacity: independent ambulation Family History Father CVD (cardiovascular disease) Diabetes Mother CVD (cardiovascular disease) HTN (hypertension) Surgical History History of left shoulder replacement History of right shoulder replacement S/P panniculectomy Hx of cholecystectomy S/P foot surgery, right History of bladder surgery History of tonsillectomy Social History Household Members: [facility] Do you presently have visiting nurse or other home services: No Unable to assess alcohol history related to: Unknown Alcohol intake: never Patient Tobacco Use Status: Never used Tobacco Smoked in Last 30 Days: No e-Cigarette/Vaping Use: Never Used Use of substances other than those prescribed or required for medical reasons: No Advance Directives: Yes Advance Directives on File: Yes Advance Directives Date on File: 06/02/23 Do you have a plan to hurt others: No Plan service: No Current occupational status: retired Narrative: no smoking, etoh or drug use Meds Allergies Allergy/AdvReac Type Severity Reaction Status Date / Time No Known Allergies Allergy Mild N/A Verified 07/14/24 14:17 Active Medications: Current Medications Acetaminophen (Acetaminophen 325 Mg Tablet) 975 mg PO Q6H PRN PRN Reason: Pain, Mild 1-3,fever,headache Albuterol/Ipratropium (Albuterol/Iprat 2.5/0.5mg 3 Ml Ampul.Neb) 3 ml INHALE Q4H PRN PRN Reason: Shortness of Breath/Wheezing Benzonatate (Benzonatate 100 Mg Capsule) 100 mg PO TID PRN PRN Reason: Cough Calcium Carbonate (Calcium Carbonate 750 Mg Tab.Chew) 750 mg PO Q4H PRN PRN Reason: Heartburn Magnesium Hydroxide (Milk Of Magnesia 30 Ml Oral.Susp) 30 ml PO DAILY PRN PRN Reason: Constipation Melatonin (Melatonin 3 Mg Tablet) 6 mg PO BEDTIME PRN PRN Reason: Insomnia Sodium Chloride (0.9 % Sodium Chloride Flush 3 Ml Syringe) 3 [facility] Medications ?Medication ?Instructions ?Recorded ?Confirmed ?Last Taken ?Type apixaban 5 mg tablet (Eliquis) 5 mg PO BID 03/27/20 05/29/23 05/28/23 History atorvastatin 40 mg tablet 40 mg PO BEDTIME 03/27/20 05/29/23 05/28/23 History conj estrogen-medroxyprogesterone 1 tab PO DAILY 03/27/20 05/29/23 05/28/23 History 0.625 mg-2.5 mg tablet (Prempro) omeprazole 20 mg capsule,delayed 20 mg PO DAILY@0630 03/27/20 05/29/23 05/28/23 History release verapamil 120 mg 24 hr 120 mg PO DAILY 03/27/20 05/29/23 05/28/23 History capsule,extended release nfgrjvkjim-hskbcweczyglc-eygaocvo 1 tab PO Q6H PRN Migraine Headache 05/13/21 05/29/23 05/18/21 History 50 mg-325 mg-40 mg tablet gabapentin 400 mg capsule 2 cap PO BID 05/13/21 05/29/23 05/28/23 History hydrocodone 5 mg-acetaminophen 325 1 tab PO BID PRN Pain (Scale Score 05/13/21 05/29/23 05/18/21 History mg tablet 4-6) ondansetron HCl 4 mg tablet 1 tab PO BEDTIME PRN Nausea And 05/13/21 05/29/23 05/18/21 History Vomiting albuterol sulfate 90 mcg/actuation 2 puff inhalation Q4-6H PRN 05/29/23 05/29/23 05/28/23 History aerosol inhaler Shortness Of Breath Or Wheezing levothyroxine 50 mcg tablet 50 mcg PO DAILY@0630 05/29/23 05/29/23 05/28/23 History lisinopril 20 1 tab PO DAILY 05/29/23 05/29/23 05/28/23 History mg-hydrochlorothiazide 12.5 mg tablet metoprolol succinate 50 mg 50 mg PO DAILY 05/29/23 05/29/23 05/28/23 History tablet,extended release 24 hr mirabegron 25 mg tablet,extended 25 mg PO DAILY 05/29/23 05/29/23 05/28/23 History release 24 hr (Myrbetriq) Physical Exam Vital Signs and Narrative: Vital Signs: Last Vital Signs Temp 97.6 F 07/14/24 20:30 Pulse 93 07/14/24 20:30 Resp 16 07/14/24 20:30 BP 148/91 H 07/14/24 20:30 Pulse Ox 97 07/14/24 22:37 O2 Del Method Room Air 07/14/24 22:37 BMI result Body Mass Index 31.1 General: AOx3, no acute distress Resp: CTA bilaterally, diminished throughout, no wheezing CVS: S1, S2, RRR GI: +BS, NT, no distention Skin: Warm, dry Neuro: Cranial nerves II-XII grossly intact bilaterally. Motor grossly intact bilaterally Extremities: No LE edema Psych: Appropriate affect Const: General: No confusion Orientation/consciousness: No confusion Eyes: Direct Ophthalmoscopy: No photophobia Neuro: General: No confusion Results Labs 07/14/24 14:56 07/14/24 14:56 Labs: Laboratory Results - last 24 hr 07/14/24 07/14/24 14:56 21:53 MCV 85.0 MCH 26.4 L MCHC 31.0 RDW 16.3 H Plt Count 124 L D MPV 9.5 Immature Gran % (Auto) 0.2 Neut % (Auto) 55.2 Lymph % (Auto) 30.5 [place] % (Auto) 13.4 H Eos % (Auto) 0.2 Baso % (Auto) 0.5 Lymph # (Auto) 1.3 [place] # (Auto) 0.6 Eos # (Auto) 0.0 Baso # (Auto) 0.0 Abs Immat Gran (auto) 0.01 Absolute Neuts (auto) 2.3 Absolute Nucleated RBC 0.000 Nucleated RBC % (auto) 0.0 PT 15.5 H INR 1.3 H D-Dimer High Sensitivty < 150 Anion Gap 15 Estim Creat Clear Calc 48.0 Estimated GFR 50 Random Glucose 100 Calcium 9.8 Magnesium 1.8 Total Bilirubin 0.3 Direct Bilirubin 0.1 AST 49 H ALT 23 Alkaline Phosphatase 59 Total Protein 6.9 Albumin 3.7 Imaging Radiologist's Impressions: Impressions Chest X-Ray 07/14/24 14:16 IMPRESSION: No acute airspace disease. Electronically signed by: Phil Luciano MD 07/14/2024 03:21 PM EDT RP Assessment and Plan (1) Acute hypoxic respiratory failure: Status: Acute (2) Acute asthma exacerbation: Status: Acute (3) COVID: Status: Acute (4) Class 1 obesity: Status: Acute Plan pt is a 74 yo f with a pmhx significant for osteoarthritis, persisent a fib on eliquis, hx CVA, HTN. hypothyroid, GERD, anxiety, mild intermittent asthma, and migraines, who presented to the ED due to SOB, GRIFFIN and fatigue since Thursday. acute hypoxic respiratory failure with acute asthma exacerbation secondary to COVID - WBC 4.1, no tachycardia or tachypnea, lactic acid normal, no sepsis - CXR negative for PNA or pulmonary edema - d-dimer negative - recent + COVID test at home Thursday - could not tolerate paxlovid outpt - solumedrol 40mg Q12H - duonebs Q4H PRN - supportive care - monitor CBC and BMP - will need ambulatory O2 trial prior to d/c persistent a fib - EKD with a fib, rate controlled - continue eliquis and rate control HTN - continue home meds hypothyroid - continue home meds GERD - continue home meds class 1 obesity - BMI 31.1 - weight loss encouraged full code VTE prophy: eliquis Pt with acute hypoxic respiratory failure secondary to asthma exacerbation and COVID, requiring admission for at least 2 midnights stay for IV steroids, breathing treatments. Quality Stroke Does the patient have a stroke diagnosis?: No VTE Prior VTE?: No VTE Risk Level:: Medical - moderate - high VTE Device Contraindication: Treatment Not Indicated VTE Drug Contraindication: N/A - Med Ordered
[2024-07-15] MEDS: Acetaminophen 325 MG TABLET 975 MG PO (01:11)
[2024-07-15] MEDS: methylPREDNISolone Sod Succ 40 MG/ML VIAL IVPUSH (01:12)
[2024-07-15 04:48] LABS: Appearance Urine Cloudy; Color Urine Dark Yellow; Glucose Urine UA Negative (Negative); Leukocyte Esterase Urine Moderate (2+) (Negative); Nitrite Urine Negative (Negative); Specific Gravity - Urine >= 1.030 (1.005-1.025); UMIC TRIGGER UACC YES; Urine Blood Negative (Negative); Urine Ketones 15 mg/dL (Negative); Urine Protein 100 (2+) mg/dL (Neg-Trace)
[2024-07-15 05:00] LABS: Bacteria Urine 4+ (None Seen); RBC Urine 0-2 /HPF (0-2); Squamous Epithelial Cell Urine >20 /HPF (0-2); UACC Culture Trigger YES
[2024-07-15] MEDS: Butalb/Acetamin/Caff 50/325/40 TABLET 1 TAB PO (05:49)
[2024-07-15 05:53] LABS: MANUAL DIFF FLAG NO
[2024-07-15 05:58] LABS: Basophils Percent Auto 0.3 % (0-2); Hematocrit 35.1 % (37.0-47.0); Hemoglobin 11.1 g/dl (12.0-16.0); Imm Gran Abs Auto 0.01 X10*3/uL (0.00-0.03); Imm Gran Pct Auto 0.3 % (0.0-0.4); Lymphocytes Absolute Auto 0.6 X10*3/uL (1.2-4.9); Lymphocytes Percent Auto 16.3 % (20-40); Mean Corpuscular HGB Conc 31.6 g/dl (31.0-35.0); Mean Corpuscular Hemoglobin 26.5 pg (27.0-33.0); Mean Corpuscular Volume 83.8 fL (80.0-98.0); Mean Platelet Volume 9.6 fL (9.4-12.3); Monocytes Absolute Auto 0.1 X10*3/uL (0.1-1.2); Monocytes Percent Auto 2.6 % (2-11); Neutrophils Absolute Auto 3.1 x10*3/uL (2.0-8.3); Neutrophils Percent Auto 80.5 % (45-73); Platelet Count 111 X10*3/uL (160-400); Red Blood Count 4.19 X10*6/uL (4.20-5.50); Red Cell Distribution Width 15.9 % (11.0-16.0); White Blood Count 3.9 X10*3/uL (4.8-10.8)
[2024-07-15 06:09] LABS: Anion Gap 16 (12-20); Blood Urea Nitrogen 21 mg/dL (9-16); Calcium 9.4 mg/dL (8.4-10.2); Carbon Dioxide 22 mmol/L (22-29); Chloride 105 mmol/L (96-108); Creatinine Clr Calc Pharmacy 58.5; Estimated Glomerular Filt Rate > 60; Glucose Random 125 mg/dL (60-115); Potassium 3.9 mmol/L (3.3-5.1); Sodium 139 mmol/L (135-145)
[2024-07-15] MEDS: VerapamiL HCL SR 120 MG TABLET.ER PO (06:36)
[2024-07-15 08:30] LABS: Influenza A PCR NEGATIVE (Negative); Influenza B PCR NEGATIVE (Negative); Resp Syncy Virus RNA Qual PCR NEGATIVE (Negative); SARS COV2 PCR INHOUSE POSITIVE (Negative)
--- NOTE | 2024-07-15 08:47 | PC.NURSE ---
Assumed care of pt at 0700. Pt resting in bed quietly, a/ox3, respirations even and unlabored, no increased wob/sob noted, lung sounds diminished bilaterally, maintaining O2 sat >92% on RA, pt placed on community placement worker, HR- 70s, afib on monitor- denies cp/sob. Pt repositioned in bed, up eating breakfast in bed. Per night RN, pt BP 170/100s. BP recheck 156/55, MD Aware. Call tate within reach, all needs met at this time.
[2024-07-15] MEDS: 0.9 % Sodium Chloride Flush 3 ML SYRINGE IVFLUSH (09:22)
[2024-07-15] MEDS: Apixaban 2.5 MG TABLET PO (09:23)
--- NOTE | 2024-07-15 11:41 | PM.DS ---
DS: Providers Provider Date of Service: 07/15/24 Date of admission: 07/14/24 23:55 Date of discharge: 07/15/24 Primary care physician: Rai Fabian MD Attending physician on discharge: Doc Burton Discharging clinician: Lucie Pradhan DS: Diagnosis Discharge Diagnosis (1) Acute hypoxic respiratory failure: Status: Acute (2) Acute asthma exacerbation: Status: Acute (3) COVID: Status: Acute (4) Class 1 obesity: Status: Acute DS: Summary Hospital Course Hospital Course: From H&P on the day of admission pt is a 74 yo f with a pmhx significant for osteoarthritis, persisent a fib on , hx CVA, HTN. hypothyroid, GERD< anxiety, mild intermittent asthma, and migraines, who presented to the ED due to SOB, GRIFFIN and fatigue since Thursday. She tested positive for COVID at home on Thursday. she denies fever, chills, nausea or vomiting. no urinary sx. no hemoptysis or productive cough. in the ED her O2 dropped to 78% ORA with mild ambulation. she reports minimal wheezing and has not tried using her albuterol inhaler at home. she was prescribed paxlovid and took it for 2 days but could not tolerate it due to a terrible taste that caused nausea and vomiting. COVID-19. Patient desaturated to the 70s on ambulation in the emergency department therefore was admitted for further management. She was treated with breathing treatments, systemic steroids. CXR was negative for pneumonia. She improved faster than expected and this morning she was able to ambulate without shortness of breath or hypoxia. She will be discharged home to complete course of Paxlovid as prescribed by her primary care provider as well as a 5 day pulse course of steroids for her asthma. Pancytopenia. Likely due to acute viral infection. Recommend repeat labs in 1-2 weeks to assess for improvement. Asymptomatic bacteriuria. Patient denies urinary symptoms. ua not good sample, with >20 epithelial cells, likely contaminated. Urine culture pending at the time of discharge. no indication for abx at this time. Time Attestation Discharge Coordination Time (in mins): 30 Quality: Safe Use of Opioids Does Pt have an Active Cancer Diagnosis on the Problem List?: No Quality: Stroke Does the patient have a stroke diagnosis?: No Physical Exam Vital Signs: Vital Signs: Last Vital Signs Temp 99.0 F 07/15/24 11:07 Pulse 104 H 07/15/24 11:07 Resp 20 07/15/24 11:07 BP 149/92 H 07/15/24 11:07 Pulse Ox 98 07/15/24 11:07 O2 Del Method Room Air 07/15/24 11:07 BMI result Body Mass Index 30.0 Const: General: cooperative, comfortable, no acute distress, alert and awake Nutritional Appearance: overweight Orientation/consciousness: patient oriented x3 Resp: Effort & Inspection: normal respiratory effort, able to speak in complete sentences and no respiratory distress Auscultation: clear to auscultation bilaterally Cardio: Rate: regular rate GI: Inspection: No distended Palpation (GI): Soft to palpation Neuro: General: patient oriented x3 DS: Data Data Completed and Pending Labs on day of discharge: Laboratory Results - last 24 hr 07/14/24 07/14/24 07/15/24 14:56 21:53 04:42 WBC 4.1 L RBC 4.28 Hgb 11.3 L Hct 36.4 L MCV 85.0 MCH 26.4 L MCHC 31.0 RDW 16.3 H Plt Count 124 L D MPV 9.5 Immature Gran % (Auto) 0.2 Neut % (Auto) 55.2 Lymph % (Auto) 30.5 [place] % (Auto) 13.4 H Eos % (Auto) 0.2 Baso % (Auto) 0.5 Lymph # (Auto) 1.3 [place] # (Auto) 0.6 Eos # (Auto) 0.0 Baso # (Auto) 0.0 Abs Immat Gran (auto) 0.01 Absolute Neuts (auto) 2.3 Absolute Nucleated RBC 0.000 Nucleated RBC % (auto) 0.0 PT 15.5 H INR 1.3 H D-Dimer High Sensitivty < 150 Sodium 140 Potassium 4.5 Chloride 104 Carbon Dioxide 26 Anion Gap 15 BUN 20 H Creatinine 1.07 Estim Creat Clear Calc 48.0 Estimated GFR 50 Random Glucose 100 Calcium 9.8 Magnesium 1.8 Total Bilirubin 0.3 Direct Bilirubin 0.1 AST 49 H ALT 23 Alkaline Phosphatase 59 Total Protein 6.9 Albumin 3.7 Urine Color Dark Yellow Urine Appearance Cloudy Urine pH 6.0 Ur Specific [place] >= 1.030 H Urine Protein 100 (2+) H Urine Glucose (UA) Negative Urine Ketones 15 Urine Blood Negative Urine Nitrite Negative Ur Leukocyte Esterase Moderate (2+) H Urine RBC 0-2 Urine WBC 6-10 Ur Squamous Epith Cells >20 Urine Bacteria 4+ Hyaline Casts 3-5 Urine Yeast Present Influenza Type A (PCR) Influenza Type B (PCR) RSV RNA Qual (PCR) SARS-CoV-2 RNA (RT-PCR) 07/15/24 07/15/24 05:52 07:45 WBC 3.9 L RBC 4.19 L Hgb 11.1 L Hct 35.1 L MCV 83.8 MCH 26.5 L MCHC 31.6 RDW 15.9 Plt Count 111 L MPV 9.6 Immature Gran % (Auto) 0.3 Neut % (Auto) 80.5 H Lymph % (Auto) 16.3 L [place] % (Auto) 2.6 Eos % (Auto) 0.0 Baso % (Auto) 0.3 Lymph # (Auto) 0.6 L [place] # (Auto) 0.1 Eos # (Auto) 0.0 Baso # (Auto) 0.0 Abs Immat Gran (auto) 0.01 Absolute Neuts (auto) 3.1 Absolute Nucleated RBC 0.000 Nucleated RBC % (auto) 0.0 PT INR D-Dimer High Sensitivty Sodium 139 Potassium 3.9 Chloride 105 Carbon Dioxide 22 Anion Gap 16 BUN 21 H Creatinine 0.88 Estim Creat Clear Calc 58.5 Estimated GFR > 60 Random Glucose 125 H Calcium 9.4 Magnesium Total Bilirubin Direct Bilirubin AST ALT Alkaline Phosphatase Total Protein Albumin Urine Color Urine Appearance Urine pH Ur Specific [place] Urine Protein Urine Glucose (UA) Urine Ketones Urine Blood Urine Nitrite Ur Leukocyte Esterase Urine RBC Urine WBC Ur Squamous Epith Cells Urine Bacteria Hyaline Casts Urine Yeast Influenza Type A (PCR) NEGATIVE Influenza Type B (PCR) NEGATIVE RSV RNA Qual (PCR) NEGATIVE SARS-CoV-2 RNA (RT-PCR) POSITIVE A Discharge Plan Discharge Anticipated Discharge Date/Time: 07/15/24 11:44 Patient Disposition: Home, Self-Care Discharge Diagnosis: covid 19/asthma exacerbation Referrals: Rai Fabian MD [Primary Care Provider] - 1 Week Discharge Medications: New prednisone 20 mg tablet 40 mg PO DAILY 5 Days Qty: 10 0RF Continued hydrocodone-acetaminophen 5-325 mg tablet 1 tab PO BID PRN (Reason: Pain (Scale Score 4-6)) gabapentin 400 mg capsule 2 cap PO BID ichloznzaq-unwzuxfxqhnkh-uoky 50-325-40 mg tablet 1 tab PO Q6H PRN (Reason: Migraine Headache) furosemide 40 mg tablet 40 mg PO DAILY escitalopram oxalate 10 mg tablet 10 mg PO DAILY Eliquis 2.5 mg tablet 2.5 mg PO BID Paxlovid 300 mg (150 mg x 2)-100 mg tablets,dose pack 0 ea PO levothyroxine 50 mcg tablet 50 mcg PO DAILY@0600 lisinopril-hydrochlorothiazide 20-12.5 mg tablet 1 tab PO DAILY mirabegron [Myrbetriq] 25 mg tablet extended release 24 hr 25 mg PO DAILY metoprolol succinate 50 mg tablet extended release 24 hr 50 mg PO DAILY albuterol sulfate 90 mcg/actuation HFA aerosol inhaler 2 puff inhalation Q4-6H PRN (Reason: Shortness Of Breath Or Wheezing) Prempro 0.625-2.5 mg tablet 1 tab PO DAILY omeprazole 20 mg capsule,delayed release(DR/EC) 20 mg PO DAILY@0630 atorvastatin 40 mg tablet 40 mg PO BEDTIME verapamil 120 mg capsule,ext rel. pellets 24 hr 120 mg PO DAILY Held Eliquis 5 mg tablet 5 mg PO BID Hold Instructions: resume when complete course of paxlovid. take 2.5 mg dose while taking paxlovid Discharge Orders: Discharge Order (Routine); Ordered 07/15/24 Ordered By: Lucie Pradhan Activity on Discharge: As tolerated Stand Alone Forms: Patient Portal Discharge page Print Language: Zambian Other Ambulatory Orders: Complete Blood Count no Diff (Routine) Timeframe: 1 Week Facility: [facility] - Location: Laboratory Ordered By: Lucie Pradhan Care Plan Goals: see below Health Concerns: asthma exacerbation COVID 19 hypoxia pancytopenia Plan of Treatment: Hypoxia resolved. Complete course of Paxlovid as prescribed by your PCP (while you are taking paxlovid you should reduce your dose of eliquis to 2.5 mg tablets; after you complete paxlovid, resume baseline dose of 5mg tablets) Complete course of steroids as prescribed Call PCP or return to the emergency room with any new symptoms Recommend to repeat labs in 1-2 weeks, pancytopenia likely due to acute viral infection Assessment: See discharge summary
--- NOTE | 2024-07-15 11:44 | MHC.CM.PN ---
IMM 07/15/24, Pt lives with her , she has home care services from [facility]. For DME, she uses a walker. PCP confirmed: Rai Fabian. HCP on file and confirmed: Young. Family to transport home at DC, DCP: home, resume elder care services. CM to follow for DC needs.
--- NOTE | 2024-07-15 12:14 | PHA.MEDREC ---
Pharmacy Consult ? Medication Reconciliation Pharmacy has completed the medication reconciliation. Utilized claim history; patient recently on paxlovid and got her Eliquis decreased to 2.5mg for that.
[2024-07-15] MEDS: Furosemide 40 MG TABLET PO (13:37)
[2024-07-15] MEDS: Metoprolol Succinate ER 50 MG TAB.ER.24H PO (13:37)
[2024-07-15] MEDS: Escitalopram Oxalate 10 MG TABLET PO (13:37)
== END 2024-07-15 13:54 | disposition home or self-care (01) | DRG 177 ==
LOC: HO.ED 22:45 → HO.EDOVER 23:58 → HO.IMC 07-15 07:20
PROVIDERS: Nurse Practitioner Family; Physician Assistant; Admitting Provider Physician Assistant; Emergency Provider Emergency Medicine Emergency Medical Services; PCP Internal Medicine; Visit Provider Physician Assistant Medical
DX: U07.1 COVID-19 (principal); J96.01 Acute respiratory failure with hypoxia; I48.19 Other persistent atrial fibrillation; J45.21 Mild intermittent asthma with (acute) exacerbation; D61.818 Other pancytopenia; K21.9 Gastro-esophageal reflux disease without esophagitis; E66.811 Obesity, class 1; Z71.3 Dietary counseling and surveillance; Z68.31 Body mass index [BMI] 31.0-31.9, adult; I10 Essential (primary) hypertension; G43.909 Migraine, unspecified, not intractable, without status migrainosus; E03.9 Hypothyroidism, unspecified; Z79.01 Long term (current) use of anticoagulants; Z79.890 Hormone replacement therapy; Z79.899 Other long term (current) drug therapy
CPT/HCPCS: 0241U; 36415; 71045; 80048; 80076; 81001; 83735; 85025; 85379; 85610; 87086; 87088; 87186; 93005; 99285; J2919

== ENCOUNTER → 2024-07-14 14:16 | Outpatient (BNV) | payer MEDICARE, SELFPAY | PROVIDERS: PCP Internal Medicine; Visit Provider Radiology Diagnostic Radiology | DX: R06.02 Shortness of breath (principal); U07.1 COVID-19 | CPT/HCPCS: 71045 ==

== ENCOUNTER → 2024-07-14 14:16 | Outpatient (BNV) | payer MEDICARE, SELFPAY | PROVIDERS: PCP Internal Medicine; Visit Provider Internal Medicine | DX: I48.91 Unspecified atrial fibrillation (principal) | CPT/HCPCS: 93010 ==

== ENCOUNTER → 2024-07-14 23:55 | Outpatient (BNV) | payer MEDICARE, SELFPAY | PROVIDERS: Admitting Provider Physician Assistant; Emergency Provider Emergency Medicine Emergency Medical Services; PCP Internal Medicine; Visit Provider Physician Assistant | DX: J96.01 Acute respiratory failure with hypoxia (principal); J45.901 Unspecified asthma with (acute) exacerbation; U07.1 COVID-19; E66.811 Obesity, class 1 | CPT/HCPCS: 99223 ==

== ENCOUNTER 2024-08-01 11:49 | Outpatient (REF) | payer MEDICARE, SELFPAY ==
[2024-08-01 11:52] LABS: MANUAL DIFF FLAG NO
[2024-08-01 12:08] LABS: Basophils Percent Auto 0.7 % (0-2); Eosinophils Absolute Auto 0.2 X10*3/uL (0.0-0.4); Eosinophils Percent Auto 2.5 % (0-4); Hematocrit 36.2 % (37.0-47.0); Imm Gran Abs Auto 0.02 X10*3/uL (0.00-0.03); Imm Gran Pct Auto 0.3 % (0.0-0.4); Lymphocytes Absolute Auto 1.9 X10*3/uL (1.2-4.9); Lymphocytes Percent Auto 31.7 % (20-40); Mean Corpuscular HGB Conc 30.4 g/dl (31.0-35.0); Mean Corpuscular Hemoglobin 26.6 pg (27.0-33.0); Mean Corpuscular Volume 87.4 fL (80.0-98.0); Mean Platelet Volume 11.8 fL (9.4-12.3); Monocytes Absolute Auto 0.8 X10*3/uL (0.1-1.2); Monocytes Percent Auto 13.3 % (2-11); Neutrophils Absolute Auto 3.1 x10*3/uL (2.0-8.3); Neutrophils Percent Auto 51.5 % (45-73); Platelet Count 204 X10*3/uL (160-400); Red Blood Count 4.14 X10*6/uL (4.20-5.50); Red Cell Distribution Width 16.1 % (11.0-16.0); White Blood Count 6.1 X10*3/uL (4.8-10.8)
--- OUTSIDE RECORDS SUMMARY | 2024-08-01 12:31 | XMS_ITS | Patient Health Record ---
Author Organization [facility] Address [address] [place] [address] Care Team Providers Care Instrument Maker And Repairer Name Role Phone Rai Fabian MD Primary Care Provider Travis Perez Unavailable [phone] Allergies No Known Allergies Reason For Referral [...] 25 MG Oral for 90 Ac tive Ihbevyzbye-YINZ-Fmrtqoym 50-325-40 MG Oral for 30 Active HYDROcodone-Acetaminophen [...] 6 hrs for 10 day(s) 11/12/2022 Active Immunizations Vaccine Route Administration Date Status Comme nts Influenza Unknown 01/07/2022 Administered Social History Tobacco Use: Social History Observation [...] Never (0 point) Points 1 Interpretation Negative Section Notes: Nonsmoker; no sig alcohol Nonsmoker; no sig alcohol Nonsmoker; no sig alcohol Nonsmoker; no sig alcohol Problems Problem Type SNOMED Code ICD Code Onset Dates Problem Status W/U Status Risk Notes Problem 645054248 Encounter for screening for malignant neoplasm of colon (Z12.11) Active confirmed Problem 543892388 History of adenomatous polyp of colon (Z86.010) Active confirmed Problem Diverticular disease of colon (975077494) Diverticulosis of large intestine without perforation or abscess without bleeding (K57.30) Active confirmed Problem 242172682 Irritable bowel syndrome with diarrhea (K58.0) Active confirmed Problem Melena (4154554) Melena (K92.1) Active confirme d Problem Iron deficiency anemia (51339205) Iron deficiency anemia (D50.9) Active confirmed Problem Gastritis (3268577) Gastritis (K29.70) Active confirmed Problem 48949259 Iron deficiency anemia, unspecified iron deficiency anemia type (D50.9) Active confirmed Problem 38060238 Diarrhea, unspecified type (R19.7) Active confirmed Problem 68086474 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) Active confirmed Problem 4056839657701 Clostridium difficile diarrhea (A04.72) Active confirmed Problem 53764691 Diarrhea of presumed infectious origin (R19.7) Active confirmed Problem 724817262742362 History of Clostridioides difficile infection (Z86.19) Active confirmed Problem Acute diarrhea (972401281) Acute diarrhea (R19.7) Active confirmed Plan Of Treatment Pending Test Test Name Order Date CHEM 7 PROFILE 06/29/2023 CHEM 7 PROFILE 12/23/2022 LIVER PROFILE 12/23/2022 IRON + IBC (FE) 06/26/2022 CRP 12/23/2022 CBC w DIFF 06/29/2023 CBC w DIFF 06/26/2022 CBC w DIFF 12/23/2022 SED RATE (ESR) 12/23/2022 GIARDIA AG, STOOL EIA 12/14/2016 OVA & PARASITES (O&P) 12/14/2016 STOOL WBC 10/29/2022 STOOL WBC 2023 STOOL WBC 12/23/2022 STOOL WBC 06/16/2023 STOOL WBC 12/02/2022 C DIFFICILE RFLX PCR 10/29/2022 C DIFFICILE RFLX PCR 2023 C DIFFICILE RFLX PCR 12/23/2022 C DIFFICILE RFLX PCR 06/16/2023 C DIFFICILE RFLX PCR 12/02/2022 TSH reflex Free T4 12/23/2022 GI PANEL 10/29/2022 GI PANEL 12/23/2022 Future Test Test Name Order Date COLONOSCOPY 04/01/2017 UPPER GI ENDOSCOPY 06/26/2022 COLONOSCOPY 06/26/2022 Insurance Providers Payer Name Payer Address Payer Phone Subscriber Number Group Number Insured Name Patient Relationship to Insured Coverage Start Date Coverage End Date MEDICARE OF [place] [address] [place] [address] [id number] JAKOB BECERRIL Self - patient is the insured [employer] ATTN CLAIMS [address] [place] [phone] [id number] JAKOB BECERRIL Self - patient is the insured Medical (General) History Medical History History ICD Code Stroke- August 2016--no residu al--[place] [facility] [place] Eliquis--? for Afib or SVT at the time of the CVA Hypertension Urinary incontinence Seasonal allergies Denies [place],DM,Lung disease,renal disease Hyperlipidemia Arthritis Hypothyroidism EGD in 2007--Dr. Díaz--HH, gastritis- -H.pylori negative Colonoscopy in 2007-Dr. Díaz--1 tubul ar adenoma ERCP with sphincterotomy in [...]
--- OUTSIDE RECORDS SUMMARY | 2024-08-01 12:31 | XMS_ITS ---
Author Organization [facility] Address [address] [place] [phone] Care Team Providers Care Scroll Assembler Name Role Phone Rai Fabian MD Primary Care Provider Travis Perez [phone] REASON FOR VISIT lomotil Medications Medication SIG (Take, Route, Fr equency, Duration) Notes Start Date End Date Status Lomotil 2.5-0.025 MG 1 or 2 Orally Every 6 hours as needed for diarrhea for 30 days 07/02/2023 Active Encounters Encounter Location Date Provider Diagnosis [facility] [place] [phone] 07/01/2023 Travis Taylor Plan Of Treatment Medication Medication Name Sig Start Date Stop Date Notes Lomotil 2.5-0.025 MG 1 or 2 Orally Every 6 hours as needed for diarrhea for 30 days 07/02/2023 Progress Notes * JAKOB BECERRIL IDOB: [id number] (73 yo F)Acc No.[id number]:07/01/2023 Patient:?JAKOB BECERRIL I :1950???Age:73 Y???Sex:Female Address:[address] [facility], [place] [address] * Refills? Start Lomotil Tablet, 2.5-0.025 MG, Orally, 60, 1 or 2, Every 6 hours as needed for diarrhea, 30 days, Refills=5 * true * Date:? Generated for Sienna darby/Dash/Bennieitting on:?08/01/2024 12:31 PM EDT
--- OUTSIDE RECORDS SUMMARY | 2024-08-01 12:31 | XMS_ITS ---
Author Organization Rai Fabian MD Address [address] [place] [phone] Support Name Relationship Address Phone Rai Fabian Caregiver [address] [facility] [address] [place] [address] [phone] Nicole Díaz Caregiver [address] [facility] [address] [place] [address] [phone] Raheel Morley Caregiver [address] [facility] [address] [place] [address] [phone] Travis Taylor Caregiver [address] [facility] [address] [place] [address] [phone] May Landis Caregiver [address] [facility] [address] [place] [address] [phone] DOROTHY GONZALEZ Caregiver [address] [facility] [address] [place] [address] [phone] Lele Childress Caregiver [address] [facility] [address] [place] [address] [phone] BILL MEDINA Caregiver [address] [facility] [address] [place] [address] [phone] Judy Woods Caregiver [address] [facility] [address] [place] [address] [phone] CAMILLE SINGER Caregiver [address] [facility] [address] [place] [address] [phone] ANILA BATES Caregiver [address] [place] [address] [phone] TRAVIS COFFEY Emergency Contact Unknown Mandie Becerril Guarantor Unknown [phone] Care Team Providers Care Manager Retirement Name Role Phone Rai Fabian Primary Care Provider Allergies No Known Allergies REASON FOR VISIT PH/TCM Video [phone], Finished Prednisone 1.5 weeks ago Medications Medication SIG (Take, Route, Frequency, Duration) Notes Start Date End Date Status Myrbetriq 25 MG 1 tablet Orally Once a day for 30 day(s) Active ZyrTEC Allergy 10 mgs 1 tablet once a day Active Azelastine HCl 0.1 % 1 puff in each nost ril Nasally Twice a day for 30 day(s) Active Flonase Allergy Relief 50 MCG/ACT 1 spray in each nostril Nasally Once a day for 30 day(s) 05/30/2016 Active hydrOXYzine HCl 25 MG 1 tablet as needed Orally Once a day for 30 day(s) Active Ventolin HFA 108 (90 Base) MCG/ACT 2 puffs as needed Inhalation every 4 hrs for 30 days 09/25/2015 Not-Taking LORazepam 0.5 1 tablet at bedtime as needed Orally Twice a day for 7 Not-Taking oxyCODONE HCl 5 MG 1 tablet as needed Orally every 6 hrs Not-Taking traMADol HCl 50 MG TAKE 1 TABLET BY KHOI EVERY 6 HOURS NEEDED for 10 Not-Taking HYDROcodone-Acetaminophen 5-325 MG 1 tablet as needed Orally every 6 hrs Active Eliquis 2.5 MG as directed Orally twice a day for 7 days 07/12/2024 Active Paxil 20 MG 0.5 tablet in the morning Orally Once a day 12/12/2022 Not-Taking Meclizine HCl 25 MG TAKE ONE TABLET BY MOUTH TWICE DAILY NEEDED for 10 Not-Taking Cyclobenzaprine HCl 5 MG TAKE ONE TABLET BY MOUTH ONCE DAILY for 30 Not-Taking Paxil 20 MG 1 tablet in the morning Orally Once a day 10/04/2020 Not-Taking Ondansetron HCl 4 MG TAKE 1 TABLET BY [facility] DAILY NEEDED Orally Once a day for 10 days Active Paxlovid (300/100) 20 x 150 MG & 10 x 100MG 3 tablets Orally Twice a day for 5 day(s) 07/12/2024 Not-Taking Levothyroxine Sodium 50 MCG TAKE ONE TABLET BY MOUTH ONCE DAILY Active Fnccgrfxmc-HZXH-Yqempdzy 50-325-40 MG TAKE ONE TABLET BY MOUTH EVERY FOUR TO SIX HOURS NEEDED FOR 5 DAYS Orally once a dAY for 20 days Active Furosemide 40 MG 1 tablet Orally Once a day 03/29/2024 Active Omeprazole 20 MG TAKE ONE CAPSULE BY MOUTH ONCE DAILY Active Atorvastatin Calcium 40 MG TAKE ONE TABL ET BY MOUTH ONCE DAILY Active Metoprolol Succinate ER 50 MG take 1 tablet by mouth once daily Active Lisinopril-hydroCHLOROthia zide 20-12.5 MG TAKE ONE TABLET BY MOUTH ONCE DAILY Active Verapamil HCl ER 120 MG TAKE ONE TABLET BY MOUTH ONCE DAILY Active Amoxicillin-Pot Clavulanate 875-125 MG 1 tablet Orally every 12 hrs for 10 days 02/26/2024 Active Hyoscyamine Sulfate 0.[address] 1 tablet under the tongue and allow to dissolve 3 times a day as needed for 7 days for 7 Active Eliquis 5 MG TAKE ONE TABLET BY MOUTH TWICE DAILY as directed Active Gabapentin 400 MG TAKE ONE CAPSULE BY MOUTH FOUR TIMES DAILY 2 caps twice a day Active Prempro 0.625-2.5 MG TAKE ONE TABLET BY MOUTH ONCE DAILY for 28 Active Magnesium 300 MG 1 capsule with a taryn l Orally Once a day for 30 day(s) Active Albuterol Sulfate HFA 108 (90 Base) MCG/ACT INHALE TWO PUFFS BY MOUTH EVERY FOUR HOURS NEEDED Inhalation every 4 hrs Active Hydrocortisone (Perianal) 2.5 % use 1 application externally twice a day for 7 days. for 7 Active Problems Problem Type SNOMED Code ICD Code Onset Dates Problem Status W/U Status Risk Notes Problem Thrombocytopenia (D69.6) Active confirmed Vital Signs Height 64 in 07/25/2024 Weight 189 lbs 07/25/2024 BMI 32.44 kg/m2 07/25/2024 weight is 189 BP not taken a t home no temp Encounters Encounter Location Date Provider Diagnosis Rai Fabian MD [address] [place], [place] [phone] 07/25/2024 Rai Fabian COVID-19 U07.1 and Thrombocytopenia D69.6 Assessments Encounter Date Diagnosis (ICD Code) Assessment Notes Treatment Notes Treatment Clinical Notes Section Notes 07/25/2024 COVID-19 (ICD-10 - U07.1) doing better 07/25/2024 Thrombocytopenia (ICD-10 - D69.6) will conitnue to monitor , pending labs Plan Of Treatment Treatment Notes Assessment Notes COVID-19 doing better Thrombocytopenia will conitnue to shellie mayo , pending labs Future Test Test Name Order Date Complete Blood Count Auto Diff Next Appt Details Follow Up: 3 Months, Reason: Provider Name:Rai trotter, 09/09/2024 01:45:00 PM, [address] [place] [address], [address], [place], [place], [phone], Provider Name:Rai trotter, 10/28/2024 07:45:00 AM, [address] [place] [address], [address], [place], [place], [phone], Provider Name:Rai avilar, 11/04/2024 02:00:00 PM, [address] [place] [address], Suite [facility], [place], [place], [phone], Provider Name:Rai trotter, 05/04/2025 07:15:00 AM, [address] [place] [address], Suite [facility], [place], [place], [phone], Provider Name:Rai trotter, 05/11/2025 02:30:00 PM, [address] [place] [address], Suite [facility], [place], [place], [phone], Progress Notes * Aaron BECERRILOB: 9 (74 yo F)Acc No.[id number]:07/25/2024 Patient:?BECERRILMandie BRITO Provider:?Rai Fabian MD :1950???Age:74 Y???Sex:Female D ate:07/25/2024 Address:[address] [place] [address], [phone] Subjective: * Chief Complaints: * ???PH/TCM Video [phone] 8Finished Prednisone 1.5 weeks ago * HPI: ???Symptom(s):?Telehealth?Location of provider rendering services:?[address] [place] [address] Drive, [address],?Location of patient:?at address listed in demographics for today's visit,?Patient identification confirmed using:?Name, ,?Telehealth method:?Video conference where patient is visible to the provider of care,?Consent:?Patient verbally consented to treatment, Patient verbally consented to billing insurance company, Patient informed of any privacy concerns related to method of visit,?Total time spend talking with patient (minutes)?18.?patient is a 74 yo female video telehealth visit, here for transitional care managemnt visit following recent discharge from hospital. Discharge summary has been reviewed? and medication reconcilled/ was sick with covid. had diarrhea lethargy trouble breathing. * ROS:?General/Constitutional:?Denies?Chills.?Denies?Fatigue.?Denies?Fever.?Denies?Headache.?ENT:?Denies?Sore throat.?Respiratory:?Denies?Cough.?Denies?Shortness of breath at rest.?Denies?Shortness of breath with exertion.?Gastrointestinal:?Denies?Diarrhea.?Denies?Nausea.? * Medical History:? * Surgical History:? * Hospitalization/Major Diagno stic Procedure:? * Medications:?TakingHYDROcodo ne-Acetaminophen 5-325 MG Tablet 1 tablet as needed Orally every 6 hrs hydrOXYzine HCl 25 MG Tablet 1 tablet as needed Orally Once a day Myrbetriq 25 MG Tablet Extended Release 24 Hour 1 tablet Orally Once a day Azelastine HCl 0.1 % Solution 1 puff in each nostril Nasally Twice a day ZyrTEC Allergy 10 mgs 1 tablet once a day Flonase Allergy Relief 50 MCG/ACT Suspension 1 spray in each nostril Nasally Once a day Magnesium 300 MG Capsule 1 capsule with a meal Orally Once a day Hydrocortisone (Perianal) 2.5 % Cream use 1 application externally twice a day for 7 days. Albuterol Sulfate HFA 108 (90 Base) MCG/ACT Aerosol Solution INHALE TWO PUFFS BY MOUTH EVERY FOUR HOURS NEEDED Inhalation every 4 hrs Gabapentin 400 MG Capsule TAKE ONE CAPSULE BY MOUTH FOUR TIMES DAILY 2 caps twice a day Eliquis 5 MG Tablet TAKE ONE TABLET BY MOUTH TWICE DAILY as directed Prempro 0.625-2.5 MG Tablet TAKE ONE TABLET BY MOUTH ONCE DAILY Hyoscyamine Sulfate 0.[address] 1 tablet under the tongue and allow to dissolve 3 times a day as needed for 7 days Amoxicillin-Pot Clavulanate 875-125 MG Tablet 1 tablet Orally every 12 hrs Atorvastatin Calcium 40 MG Tablet TAKE ONE TABLET BY MOUTH ONCE DAILY Omeprazole 20 MG Capsule Delayed Release TAKE ONE CAPSULE BY MOUTH ONCE DAILY Lisinopril-hydroCHLOROthiazide 20-12.5 MG Tablet TAKE ONE TABLET BY MOUTH ONCE DAILY Metoprolol Succinate ER 50 MG Tablet Extended Release 24 Hour take 1 tablet by mouth once daily Verapamil HCl ER 120 MG Tablet Extended Release TAKE ONE TABLET BY MOUTH ONCE DAILY Levothyroxine Sodium 50 MCG Tablet TAKE ONE TABLET BY MOUTH ONCE DAILY Furosemide 40 MG Tablet 1 tablet Orally Once a day Smdpdukpwg-SSDD-Jpyxujfy 50-325-40 MG Tablet TAKE ONE TABLET BY MOUTH EVERY FOUR TO SIX HOURS NEEDED FOR 5 DAYS Orally once a dAY Ondansetron HCl 4 MG Tablet TAKE 1 TABLET BY MOUTH DAILY NEEDED Orally Once a day Eliquis 2.5 MG Tablet as directed Orally twice a day Taking HYDROcodone-Acetaminophen 5-325 MG Tablet 1 tablet as needed Orally every 6 hrs Taking hydrOXYzine HCl 25 MG Tablet 1 tablet as needed Orally Once a day Taking Myrbetriq 25 MG Tablet Extended Release 24 Hour 1 tablet Orally Once a day Taking Azelastine HCl 0.1 % Solution 1 puff in each nostril Nasally Twice a day Taking ZyrTEC Allergy 10 mgs 1 tablet once a day Taking Flonase Allergy Relief 50 MCG/ACT Suspension 1 spray in each nostril Nasally Once a day Taking Magnesium 300 MG Capsule 1 capsule with a meal Orally Once a day Taking Hydrocortisone (Perianal) 2.5 % Cream use 1 application externally twice a day for 7 days. Taking Albuterol Sulfate HFA 108 (90 Base) MCG/ACT Aerosol Solution INHALE TWO PUFFS BY MOUTH EVERY FOUR HOURS NEEDED Inhalation every 4 hrs Taking Gabapentin 400 MG Capsule TAKE ONE CAPSULE BY MOUTH FOUR TIMES DAILY 2 caps twice a day Taking Eliquis 5 MG Tablet TAKE ONE TABLET BY MOUTH TWICE DAILY as directed Taking Prempro 0.625-2.5 MG Tablet TAKE ONE TABLET BY MOUTH ONCE DAILY Taking Hyoscyamine Sulfate 0.[address] 1 tablet under the tongue and allow to dissolve 3 times a day as needed for 7 days Taking Amoxicillin-Pot Clavulanate 875-125 MG Tablet 1 tablet Orally every 12 hrs Taking Atorvastatin Calcium 40 MG Tablet TAKE ONE TABLET BY MOUTH ONCE DAILY Taking Omeprazole 20 MG Capsule Delayed Release TAKE ONE CAPSULE BY MOUTH ONCE DAILY Taking Lisinopril-hydroCHLOROthiazide 20-12.5 MG Tablet TAKE ONE TABLET BY MOUTH ONCE DAILY Taking Metoprolol Succinate ER 50 MG Tablet Extended Release 24 Hour take 1 tablet by mouth once daily Taking Verapamil HCl ER 120 MG Tablet Extended Release TAKE ONE TABLET BY MOUTH ONCE DAILY Taking Levothyroxine Sodium 50 MCG Tablet TAKE ONE TABLET BY MOUTH ONCE DAILY Taking Furosemide 40 MG Tablet 1 tablet Orally Once a day Taking Romehkalht-ZJZC-Ixqelvzi 50-325-40 MG Tablet TAKE ONE TABLET BY MOUTH EVERY FOUR TO SIX HOURS NEEDED FOR 5 DAYS Orally once a dAY Taking Ondansetron HCl 4 MG Tablet TAKE 1 TABLET BY MOUTH DAILY NEEDED Orally Once a day Taking Eliquis 2.5 MG Tablet as directed Orally twice a day Not-Taking/PRNPaxlovid (300/100) 20 x 150 MG & 10 x 100MG Tablet Therapy Pack 3 tablets Orally Twice a day Meclizine HCl 25 MG Tablet TAKE ONE TABLET BY MOUTH TWICE DAILY NEEDED Paxil 20 MG Tablet 0.5 tablet in the morning Orally Once a day Paxil 20 MG Tablet 1 tablet in the morning Orally Once a day Cyclobenzaprine HCl 5 MG Tablet TAKE ONE TABLET BY MOUTH ONCE DAILY oxyCODONE HCl 5 MG Tablet 1 tablet as needed Orally every 6 hrs LORazepam 0.5 Tablet 1 tablet at bedtime as needed Orally Twice a day traMADol HCl 50 MG Tablet TAKE 1 TABLET BY MOUTH EVERY 6 HOURS NEEDED Ventolin HFA 108 (90 Base) MCG/ACT Aerosol Solution 2 puffs as needed Inhalation every 4 hrs Medication List reviewed and reconciled with the patientNot-Taking/PRN Paxlovid (300/100) 20 x 150 MG & 10 x 100MG Tablet Therapy Pack 3 tablets Orally Twice a day Not-Taking/PRN Meclizine HCl 25 MG Tablet TAKE ONE TABLET BY MOUTH TWICE DAILY NEEDED Not-Taking/PRN Paxil 20 MG Tablet 0.5 tablet in the morning Orally Once a day Not-Taking/PRN Paxil 20 MG Tablet 1 tablet in the morning Orally Once a day Not-Taking/PRN Cyclobenzaprine HCl 5 MG Tablet TAKE ONE TABLET BY MOUTH ONCE DAILY Not-Taking/PRN oxyCODONE HCl 5 MG Tablet 1 tablet as needed Orally every 6 hrs Not-Taking/PRN LORazepam 0.5 Tablet 1 tablet at bedtime as needed Orally Twice a day Not-Taking/PRN traMADol HCl 50 MG Tablet TAKE 1 TABLET BY MOUTH EVERY 6 HOURS NEEDED Not-Taking/PRN Ventolin HFA 108 (90 Base) MCG/ACT Aerosol Solution 2 puffs as needed Inhalation every 4 hrs Medication List reviewed and reconciled with the patient * Allergies:?N.K.D.A.yes[Aller gies Verified] Objective: * Vitals:?Ht: 64, Wt: 189, BMI :32.44, Wt-k.73. weight is 189? BP? not taken at home? no temp. * Examination: ???General Examination: ?GENERAL APPEARANCE:?well developed, well nourished, female.? Assessment: * Assessment: 1.?COVID-19 - U07.1 (Primary )???2.?Thrombocytopenia - D69.6??? Plan: * Treatment: 2.?Thrombocytopenia? Notes: will conitnue to monitor , pending labs?? * Procedure Codes:? * Follow Up:?3 Months * * Sign off status: Completed true * Provider:?Rai Fabian MD Date:?0 07/25/2024 Generated for Sienna darby/Dash/eTshondasmitting on:?08/01/2024 12:30 PM EDT History and Physical Notes * HPI (History of Present Illness) Category Sub-Category Detail Notes Category Not es Symptom(s) [facility] [address], [address] patient is a 74 yo female video telehealth visit, here for transitional care managemnt visit following recent discharge from hospital. Discharge summary has been reviewed and medication reconcilled/ was sick with covid. had diarrhea lethargy trouble breathing. Location of patient:: at address listed in demographics for today's visit Patient identification confirmed using:: Name, Telehealth method:: Video co nference where patient is visible to the provider of care Consent:: Patient verbally c onsented to treatment, Patient verbally consented to billing insurance company, Patient informed of any privacy concerns related to method of visit Total time spend talking with patient (m inutes): 18 Examination Category Sub-Category Detail Notes Category Not es General Examination GENERAL APPEARANCE: well dev eloped, well nourished, female
--- OUTSIDE RECORDS SUMMARY | 2024-08-01 12:31 | XMS_ITS | Patient Health Record ---
Author Organization Rai Fabian MD Address [address] [place] [address] [phone] Support Name Relationship Address Phone Rai Fabian Caregiver [address] [facility] [address] [place] [address] [phone] Nicole Díaz [facility]giver [facility] [address] [place] [address] [phone] Raheel Morley Caregiver [address] [facility] [address] [address] [place] [address] [phone] Travis Taylor Caregiver [address] [facility] [address] [address] [place] [address] [phone] May Landis Caregiver [address] [facility] [address] [address] [place] [address] [phone] DOROTHY GONZALEZ Caregiver [address] [facility] [address] [place] [address] [phone] Lele Childress Caregiver [facility] [address] [place] [address] [phone] BILL MEDINA Caregiver [address] [facility] [address] [address] [place] [address] [phone] Judy Woods Caregiver [address] [facility] [address] [address] [place] [address] [phone] CAMILLE SINGER Caregiver [address] [facility] [address] [place] [address] [phone] ANILA BATES Caregiver [address] [place] [address] [phone] TRAVIS COFFEY Emergency Contact Unknown Mandie Gonzalez Guarantor Unknown [phone] Care Team Providers Care Coverstitch Elastic Attacher Name Role Phone Rai Fabian Primary Care Provider Allergies No Known Allergies Results Component Value Reference Range Notes Complete Blood Count Auto Di ff Reviewed date:2024 01:37:22 PM Interpretation: Performing Lab:[facility], [address] [place] [phone] Notes/Report: White Blood Count 6.2 4.8-10.8 X10*3/uL [...] 0.0-0.2 /100WBC Neutrophils Absolute Auto 3.4 2.0-8.3 x10*3/uL Imm Gran Abs Auto 0.02 0.00-0.03 X10*3/uL Lymphocytes Absolute Auto 1.7 1.2-4.9 X10*3/uL Monocytes Absolute Auto 0.8 0.1-1.2 X10*3/uL Eosinophils Absolute Auto 0.2 0.0-0.4 X10*3/uL Basophils Absolute Auto 0.1 0.0-0.2 X10*3/uL NRBC Abs Auto 0.000 0.0-0.012 X10*3/uL Comprehensive [place]. Panel Fa st Reviewed date:2024 05:58:39 PM Interpretation: Performing Lab:[facility], [address] [place] [phone] Notes/Report: Sodium 137 135-145 mmol/L Potassium 3.8 [...] Panel Reviewed date:2024 12:32:35 PM Interpretation: Performing Lab:[address] [phone] Notes/Report: Triglycerides 74 <150 mg/dL Desirable Triglyceride: [...] t Reviewed date:2024 05:59:06 PM Interpretation: Performing Lab:[facility], [address] [place] [phone] Notes/Report: [id number] Urine, Clean Catch Color Urine Yellow Appearance Urine Cloudy PH 7.0 5.0-9.0 Glucose Urine UA Negative Negative mg/dL Urine Blood Negative Negative Specific [place] - Urine 1.020 1.005-1.025 Urine Protein Trace Neg-Trace mg/dL Urine Ketones Negative Negative mg/dL Nitrite Urine Positive Negative Leukocyte Esterase Urine Moderate (2+) Negative RBC Urine 0-2 0-2 /HPF WBC Urine 11-20 0-5 /HPF Squamous Epithelial Cell Urine 3-5 0-2 /HPF Bacteria Urine 4+ None Seen Hyaline Casts Urine 3-5 0-2 /LPF Electrocardiogram (EKG) Reviewed date:03/29/2024 12:19:17 PM Interpretation: Performing Lab: Notes/Report: UA ClnCatch+Micro w/rflx Cul t Reviewed date:05/06/2024 04:59:39 PM Interpretation: Performing Lab:[facility], [address] [place] [phone] Notes/Report: [id number] Urine, Clean Catch Color Urine Yellow Appearance Urine Clear PH 6.5 5.0-9.0 Glucose Urine UA Negative Negative mg/dL Urine Blood Negative Negative Specific [place] - Urine 1.010 1.005-1.025 Urine Protein Negative Neg-Trace mg/dL Urine Ketones Negative Negative mg/dL Nitrite Urine Positive Negative Leukocyte Esterase Urine Negative Negative RBC Urine 0-2 0-2 /HPF WBC Urine 0-5 0-5 /HPF Squamous Epithelial Cell Urine 0-2 0-2 /HPF Bacteria Urine 4+ None Seen Hyaline Casts Urine 0-2 0-2 /LPF XR chest 2V Reviewed date:04/01/2024 05:25:23 PM Interpretation: Performing Lab: Notes/Report: [address] [address] XRay Report Signed Patient: Mandie Gonzalez I MR#: [id number] : 1950 Acct:[id number] Age/Sex: 73 / F ADM Date: 03/29/24 Loc: HO.ANISH Attending Dr: Rai Fabian MD Ordering Physician: Rai Fabian MD Date of Service: 03/29/24 Procedure(s): XR chest 2V Accession Number(s): [id number] cc: Rai Fabian MD CLINICAL HISTORY: SOB 2 view chest x-ray Comparison: None Findings: The lungs are clear. Normal size heart. No acute fracture. IMPRESSION: 1. No acute findings. This document has been electronically signed by: Olayinka Chowdary MD on 03/31/2024 19:01:41 Dictated By: Olayinka Chowdary MD Signed By: <Electronically signed by Olayinka Chowdary MD in OV> 03/31/241901 DD/ 00 TD/TT: 03/31/241900 Director Voice: [address] [address] XRay Report Signed Patient: Tana Gonzalez MR#: [id number] : 1950 Acct:[id number] Age/Sex: 73 / F ADM Date: 03/29/24 Loc: HO.XRAY Attending Dr: Rai Fabian MD Ordering Physician: Rai Fabian MD Date of Service: 03/29/24 Procedure(s): XR leeroy st 2V Accession Number(s): [id number] cc: Rai Fabian MD CLINICAL HISTORY: SOB 2 view chest x-ray Comparison: None Findings: The lungs are clear. Normal size heart. No acute fracture. IMPRESSION: 1. No acute findings. This document has be en electronically signed by: Olayinka Chowdary MD on 03/31/2024 19:01:41 Dictated By: Owen Chowdary MD Signed By: <Electronically signed by Olayinka Chowdary MD in OV> 03/31/241901 DD/ 00 TD/TT: 03/31/241900 Director Voice: Urine Culture Reviewed date:04/12/2024 01:25:02 PM Interpretation: Performing Lab:[facility], [address] [place] [phone] Notes/Report: O:ESCCOL Escherichia coli Urine Culture Quant Urine Culture > 100,000 cfu/mL Ampicillin >=32 Cefazolin (Urine) 8 Cefepime <=0.12 Ceftriaxone <=0.25 Ciprofloxacin <=0.06 Gentamicin <=1 Nitrofurantoin <=16 Trimethoprim/Sulfamethox azole <=20 Urine Culture Reviewed date:05/10/2024 01:08:11 PM Interpretation: Performing Lab:[facility], [address] [place] [phone] Notes/Report: O:ESCCOL Escherichia coli Urine Culture Quant Urine Culture > 100,000 cfu/mL Ampicillin >=32 Cefazolin (Urine) 4 Cefepime <=0.12 Ceftriaxone <=0.25 Ciprofloxacin <=0.06 Gentamicin <=1 Nitrofurantoin <=16 Trimethoprim/Sulfamethox azole <=20 Complete Blood Count Auto Di ff Reviewed date:07/14/2024 04:47:27 PM Interpretation: Performing Lab:[facility], [address] [place] [phone] Notes/Report: White Blood Count 4.1 4.8-10.8 X10*3/uL Red Blood Count 4.28 4.20-5.50 X10*6/uL Hemoglobin 11.3 12.0-16.0 g/dl Hematocrit 36.4 37.0-47.0 % Mean Corpuscular Volume 85.0 80.0-98.0 fL Mean Corpuscular Hemoglobin 26.4 27.0-33.0 pg Mean Corpuscular HGB Conc 31.0 31.0-35.0 g/dl Red Cell Distribution Width 16.3 11.0-16.0 % Platelet Count 124 160-400 X10*3/uL Mean Platelet Volume 9.5 9.4-12.3 fL Neutrophils Percent Auto 55.2 45-73 % Imm Gran Pct Auto 0.2 0.0-0.4 % Lymphocytes Percent Auto 30.5 20-40 % Monocytes Percent Auto 13.4 2-11 % Eosinophils Percent Auto 0.2 0-4 % Basophils Percent Auto 0.5 0-2 % NRBC Pct Auto 0.0 0.0-0.2 /100WBC Neutrophils Absolute Auto 2.3 2.0-8.3 x10*3/uL Imm Gran Abs Auto 0.01 0.00-0.03 X10*3/uL Lymphocytes Absolute Auto 1.3 1.2-4.9 X10*3/uL Monocytes Absolute Auto 0.6 0.1-1.2 X10*3/uL Eosinophils Absolute Auto 0.0 0.0-0.4 X10*3/uL Basophils Absolute Auto 0.0 0.0-0.2 X10*3/uL NRBC Abs Auto 0.000 0.0-0.012 X10*3/uL Prothrombin Time INR Reviewed date:07/15/2024 10:26:39 AM Interpretation: Performing Lab:[facility], [address] [place] [phone] Notes/Report: Prothrombin Time 15.5 10.9-12.4 SEC INTERNATIONAL NORM RATIO 1.3 0.9-1.1 INTERNATIONAL NORMALIZED RATIO (INR) REFERENCE RANGES Reference Range For patients not on anticoagulant therapy: 0.9 - 1.1 INR ranges for oral anticoagulant therapy: For prevention and treatment of venous thrombosis and pulmonary embolism: 2.0 - 3.0 For acute myocardial infarction with aspirin therapy: 2.0 - 3.0 For acute myocardial infarction without aspirin therapy: 3.0 - 4.0 For patients with mechanical prosthetic heart valves: 2.5 - 3.5 Liver Panel Reviewed date:07/14/2024 04:50:40 PM Interpretation: Performing Lab:[facility], [address] [place] [phone] Notes/Report: Bilirubin Total 0.3 0.0-1.0 mg/dL Bilirubin Direct 0.1 0.0-0.5 mg/dL Aspartate Amino Transferase 49 5-31 U/L Alanine Aminotransferase 23 0-31 U/L Total Protein 6.9 6.5-8.0 g/dL Albumin Level 3.7 3.5-5.0 g/dL Alkaline Phosphatase 59 39-117 U/L Basic Metabolic Panel Reviewed date:07/14/2024 04:58:52 PM Interpretation: Performing Lab:[facility], [address] [place] [phone] Notes/Report: Sodium 140 135-145 mmol/L Potassium 4.5 3.3-5.1 mmol/L Chloride 104 96-108 mmol/L Carbon Dioxide 26 22-29 mmol/L Anion Gap 15 12-20 Blood Urea Nitrogen 20 9-16 mg/dL Creatinine 1.07 0.5-1.4 mg/dL Creatinine Clr Calc Pharmacy 48.0 Provided height and weight: 165.1 cm, 84.822 kg. eGFR (calculated from the MDRD study equation) and eCrCl (calculated from the Cockcroft-Gault equation) are based on different parameters and may not yield comparable results. If eCrCl result is absurd, please check patient's height/weight. Estimated Glomerular Filt Rate 50 Chronic Kidney Disease: Estimated GFR < 60 mL/min/1.73m2 Severe Kidney Disease: Estimated GFR < 15 mL/min/1.73m2 Glucose Random 100 60-115 mg/dL Calcium 9.8 8.4-10.2 mg/dL Magnesium Reviewed date:07/14/2024 04:52:00 PM Interpretation: Performing Lab:[facility], [address] [place] [phone] Notes/Report: Magnesium 1.8 1.6-2.6 mg/dL D Dimer High Sensitivity Reviewed date:07/15/2024 10:26:31 AM Interpretation: Performing Lab:[facility], [address] [place] [phone] Notes/Report: D Dimer High Sensitivity < 150 D-DIMER HS REFERENCE RANGE Note: Our assay reports D-Dimer Units (D-DU). The cut-off value for venous thromboembolic (VTE) disease is 230 ng/mL. This value has a very high negative predictive value when the patient has a low to moderate clinical probability of VTE. The upper limit of normal is 243 ng/mL. XR chest 1V Reviewed date:07/14/2024 04:48:41 PM Interpretation: Performing Lab: Notes/Report: [address] [address] XRay Report Signed Patient: Mandie Gonzalez I MR#: [id number] : 1950 Acct:[id number] Age/Sex: 74 / F ADM Date: 07/14/24 Loc: HO.ED Attending Dr: Ordering Physician: Tara Simpson Date of Service: 07/14/24 Procedure(s): XR chest 1V Accession Number(s): [id number] cc: Rai Fabian MD; Tara Simpson EXAMINATION: XR CHEST CLINICAL INFORMATION: sob +covid COMPARISON: March 29, 2024. TECHNIQUE: Frontal view of the chest was obtained. FINDINGS: Elevated right hemidiaphragm, unchanged. Hepatic colonic flexure below the right hemidiaphragm, unchanged. No consolidation pleural effusion or pneumothorax. Cardiomediastinal silhouette size is normal. S-shaped curvature of the thoracolumbar junction deforming the rib cage/ chest. Metallic prosthesis both shoulders. XR/XR chest 1V IMPRESSION: No acute airspace disease. Electronically signed by: Phil Luciano MD 07/14/2024 03:21 PM EDT RP Dictated By: Phil Chavez MD Signed By: <Electronically signed by Phil Penaloza MD in OV> 07/14/24 1521 DD/ 1416 TD/TT: 07/14/24 1507 Director Voice: [address] [address] XRay Report Signed Patient: Tana Gonzalez MR#: [id number] : 1950 Acct:[id number] Age/Sex: 74 / F ADM Date: 07/14/24 Loc: .ED Attending Dr: Ordering Physician: Tara Simpson Date of Service: 07/14/24 Procedure(s): XR leeroy st 1V Accession Number(s): [id number] cc: Rai Fabian MD; Tara Simpson EXAMINATION: XR CHEST CLINICAL INFORMATION: sob +covid COMPARISON: March 29, 2024. TECHNIQUE: Frontal view of the chest was obtained. FINDINGS: Elevated right hemidiaphragm, unchanged. Hepatic colonic flexure below the right hemidiaphr agm, unchanged. No consolidation ple ural effusion or pneumothorax. Cardiomediastinal silhouette size is normal. S-shaped curvature o f the thoracolumbar junction deforming the rib cage/ chest. Metalli c prosthesis both shoulders. X R/XR chest 1V IMPRESSION: No acute airspace disease. Electronically rowan d by: Phil Luciano MD 07/14/2024 03:21 PM EDT RP Dictated By: Phil Kahn MD Signed By: <Electronically signed by Phil Penaloza MD in OV> 07/14/24 1521 DD/ 1416 TD/TT: 07/14/24 1507 Director Voice: Complete Blood Count Auto Di ff Reviewed date:07/15/2024 10:27:06 AM Interpretation: Performing Lab:[facility], [address] [place] [phone] Notes/Report: White Blood Count 3.9 4.8-10.8 X10*3/uL Red Blood Count 4.19 4.20-5.50 X10*6/uL Hemoglobin 11.1 12.0-16.0 g/dl Hematocrit 35.1 37.0-47.0 % Mean Corpuscular Volume 83.8 80.0-98.0 fL Mean Corpuscular Hemoglobin 26.5 27.0-33.0 pg Mean Corpuscular HGB Conc 31.6 31.0-35.0 g/dl Red Cell Distribution Width 15.9 11.0-16.0 % Platelet Count 111 160-400 X10*3/uL Mean Platelet Volume 9.6 9.4-12.3 fL Neutrophils Percent Auto 80.5 45-73 % Imm Gran Pct Auto 0.3 0.0-0.4 % Lymphocytes Percent Auto 16.3 20-40 % Monocytes Percent Auto 2.6 2-11 % Eosinophils Percent Auto 0.0 0-4 % Basophils Percent Auto 0.3 0-2 % NRBC Pct Auto 0.0 0.0-0.2 /100WBC Neutrophils Absolute Auto 3.1 2.0-8.3 x10*3/uL Imm Gran Abs Auto 0.01 0.00-0.03 X10*3/uL Lymphocytes Absolute Auto 0.6 1.2-4.9 X10*3/uL Monocytes Absolute Auto 0.1 0.1-1.2 X10*3/uL Eosinophils Absolute Auto 0.0 0.0-0.4 X10*3/uL Basophils Absolute Auto 0.0 0.0-0.2 X10*3/uL NRBC Abs Auto 0.000 0.0-0.012 X10*3/uL Basic Metabolic Panel Reviewed date:07/15/2024 10:24:54 AM Interpretation: Performing Lab:[facility], [address] [place] [phone] Notes/Report: Sodium 139 135-145 mmol/L Potassium 3.9 3.3-5.1 mmol/L Chloride 105 96-108 mmol/L Carbon Dioxide 22 22-29 mmol/L Anion Gap 16 12-20 Blood Urea Nitrogen 21 9-16 mg/dL Creatinine 0.88 0.5-1.4 mg/dL Creatinine Clr Calc Pharmacy 58.5 Provided height and weight: 165.1 cm, 84.822 kg. eGFR (calculated from the MDRD study equation) and eCrCl (calculated from the Cockcroft-Gault equation) are based on different parameters and may not yield comparable results. If eCrCl result is absurd, please check patient's height/weight. Estimated Glomerular Filt Rate > 60 Chronic Kidney Disease: Estimated GFR < 60 mL/min/1.73m2 Severe Kidney Disease: Estimated GFR < 15 mL/min/1.73m2 Glucose Random 125 60-115 mg/dL Calcium 9.4 8.4-10.2 mg/dL Urine Culture Reviewed date:07/17/2024 01:58:27 PM Interpretation: Performing Lab:[facility], [address] [place] [phone] Notes/Report: O:ESCCOL Escherichia coli Urine Culture Quant Urine Culture 50,000 to 100,000 cfu/mL Ampicillin >=32 Cefazolin (Urine) 4 Cefepime <=0.12 Ceftriaxone <=0.25 Ciprofloxacin <=0.06 Gentamicin <=1 Nitrofurantoin <=16 Trimethoprim/Sulfamethox azole <=20 SARS-CoV2/FLU/RSV Reviewed date:07/15/2024 10:24:32 AM Interpretation: Performing Lab:[facility], [address] [place] [phone] Notes/Report: Influenza A PCR NEGATIVE Negative Influenza B PCR NEGATIVE Negative Resp Syncy Virus RNA Qual PCR NEGATIVE Negative SARS COV2 PCR INHOUSE POSITIVE Negative All test results must be correlated with clinical findings. Negative results do not preclude SARS-CoV2, influenza A virus, influenza B virus and/or RSV infection and should not be used as the sole basis for treatment or other patient management decisions. Negative results must be combined with clinical observations, patient history, and epidemiological information. This test has not been evaluated for monitoring treatment of infection. This test has been authorized by the FDA under an Emergency Use Authorization (EUA) for use by authorized laboratories. Testing performed on the [employer] GeneXpert utilizing real-time RT-PCR. All SARS CoV2 and positive influenza A/B results are reported to [facility]. UA ClnCatch+Micro w/rflx Cul t Reviewed date:07/15/2024 03:39:56 PM Interpretation: Performing Lab:[address] [phone] Notes/Report: [id number] Urine, Clean Catch Color Urine Dark Yellow Appearance Urine Cloudy PH 6.0 5.0-9.0 Glucose Urine UA Negative Negative mg/dL Urine Blood Negative Negative Specific [place] - Urine >= 1.030 1.005-1.025 Urine Protein 100 (2+) Neg-Trace mg/dL Urine Ketones 15 Negative mg/dL Nitrite Urine Negative Negative Leukocyte Esterase Urine Moderate (2+) Negative RBC Urine 0-2 0-2 /HPF WBC Urine 6-10 0-5 /HPF Squamous Epithelial Cell Urine >20 0-2 /HPF Bacteria Urine 4+ None Seen Hyaline Casts Urine 3-5 0-2 /LPF Yeast Urine Present Complete Blood Count Auto Di ff (Not yet reviewed by provider) Interpretation: Performing Lab:[address] [phone] Notes/Report: White Blood Count 6.1 4.8-10.8 X10*3/uL Red Blood Count 4.14 4.20-5.50 X10*6/uL Hemoglobin 11.0 12.0-16.0 g/dl Hematocrit 36.2 37.0-47.0 % Mean Corpuscular Volume 87.4 80.0-98.0 fL Mean Corpuscular Hemoglobin 26.6 27.0-33.0 pg Mean Corpuscular HGB Conc 30.4 31.0-35.0 g/dl Red Cell Distribution Width 16.1 11.0-16.0 % Platelet Count 204 160-400 X10*3/uL Mean Platelet Volume 11.8 9.4-12.3 fL Neutrophils Percent Auto 51.5 45-73 % Imm Gran Pct Auto 0.3 0.0-0.4 % Lymphocytes Percent Auto 31.7 20-40 % Monocytes Percent Auto 13.3 2-11 % Eosinophils Percent Auto 2.5 0-4 % Basophils Percent Auto 0.7 0-2 % NRBC Pct Auto 0.0 0.0-0.2 /100WBC Neutrophils Absolute Auto 3.1 2.0-8.3 x10*3/uL Imm Gran Abs Auto 0.02 0.00-0.03 X10*3/uL Lymphocytes Absolute Auto 1.9 1.2-4.9 X10*3/uL Monocytes Absolute Auto 0.8 0.1-1.2 X10*3/uL Eosinophils Absolute Auto 0.2 0.0-0.4 X10*3/uL Basophils Absolute Auto 0.0 0.0-0.2 X10*3/uL NRBC Abs Auto 0.000 0.0-0.012 X10*3/uL Reason For Referral No Information Medications Medication SIG (Take, Route, Frequency, Duration) Notes Start Date End Date Status Ondansetron HCl 4 MG TAKE 1 TABLET BY [facility] DAILY NEEDED Orally Once a day for 10 days Active Myrbetriq 25 MG 1 tablet Orally Once a day for 30 day(s) Active Eliquis 2.5 MG as directed Orally twice a day for 7 days 07/12/2024 Active Paxlovid (300/100) 20 x 150 MG & 10 x 100MG 3 tablets Orally Twice a day for 5 day(s) 07/12/2024 Not-Taking ZyrTEC Allergy 10 mgs 1 tablet once a day Active Paxil 20 MG 0.5 tablet in the morning Orally Once a day 12/12/2022 Not-Taking Azelastine HCl 0.1 % 1 puff in each nost ril Nasally Twice a day for 30 day(s) Active Meclizine HCl 25 MG TAKE ONE TABLET BY MOUTH TWICE DAILY NEEDED for 10 Not-Taking Magnesium 300 MG 1 capsule with a taryn l Orally Once a day for 30 day(s) Active Cyclobenzaprine HCl 5 MG TAKE ONE TABLET BY MOUTH ONCE DAILY for 30 Not-Taking Flonase Allergy Relief 50 MCG/ACT 1 spray in each nostril Nasally Once a day for 30 day(s) 05/30/2016 Active Paxil 20 MG 1 tablet in the morning Orally Once a day 10/04/2020 Not-Taking Albuterol Sulfate HFA 108 (90 Base) MCG/ACT INHALE TWO PUFFS BY MOUTH EVERY FOUR HOURS NEEDED Inhalation every 4 hrs Active LORazepam 0.5 1 tablet at bedtime as needed Orally Twice a day for 7 Not-Taking Hydrocortisone (Perianal) 2.5 % use 1 application externally twice a day for 7 days. for 7 Active oxyCODONE HCl 5 MG 1 tablet as needed Orally every 6 hrs Not-Taking Eliquis 5 MG TAKE ONE TABLET BY MOUTH TWICE DAILY as directed Active Gabapentin 400 MG TAKE ONE CAPSULE BY MOUTH FOUR TIMES DAILY 2 caps twice a day Active traMADol HCl 50 MG TAKE 1 TABLET BY KHOI TH EVERY 6 HOURS NEEDED for 10 Not-Taking Prempro 0.625-2.5 MG TAKE ONE TABLET BY MOUTH ONCE DAILY for 28 Active Ventolin HFA 108 (90 Base) MCG/ACT 2 puffs as needed Inhalation every 4 hrs for 30 days 09/25/2015 Not-Taking Amoxicillin-Pot Clavulanate 875-125 MG 1 tablet Orally every 12 hrs for 10 days 02/26/2024 Active Hyoscyamine Sulfate 0.[address] 1 tablet under the tongue and allow to dissolve 3 times a day as needed for 7 days for 7 Active Omeprazole 20 MG TAKE ONE CAPSULE BY MOUTH ONCE DAILY Active Metoprolol Succinate ER 50 MG take 1 tablet by mouth once daily Active Lisinopril-hydroCHLOROthia zide 20-12.5 MG TAKE ONE TABLET BY MOUTH ONCE DAILY Active Levothyroxine Sodium 50 MCG TAKE ONE TABLET BY MOUTH ONCE DAILY Active Verapamil HCl ER 120 MG TAKE ONE TABLET BY MOUTH ONCE DAILY Active Prqtqdsuld-STYK-Frtpojun 50-325-40 MG TAKE ONE TABLET BY MOUTH EVERY FOUR TO SIX HOURS NEEDED FOR 5 DAYS Orally once a dAY for 20 days Active Furosemide 40 MG 1 tablet Orally Once a day 03/29/2024 Active hydrOXYzine HCl 25 MG 1 tablet as needed Orally Once a day for 30 day(s) Active HYDROcodone-Acetaminophen 5-325 MG 1 tablet as needed Orally every 6 hrs Active Atorvastatin Calcium 40 MG TAKE ONE TABL ET BY MOUTH ONCE DAILY for 90 Active Immunizations Vaccine Route Administration Date Status Comme nts Flu Vaccine IM Intramuscular 12/09/2010 Administered Flu Vaccine IM Intramuscular 03/01/2012 Administered Flu Vaccine Unknown 04/06/2013 Administered [facility] Flu Vaccine IM Intramuscular 02/21/2014 Administered PPSV23 (Pnemovax) IM Intramuscular 06/12/2014 Administered Fluarix Quadrivalent IM Intramuscular 01/15/2015 Administe red Fluarix Quadrivalent IM Intramuscular 12/07/2015 Administe red Fluarix Quadrivalent IM Intramuscular 12/02/2016 Administe red Prevnar 13 IM Intramuscular 12/08/2016 Administered Fluarix Quadrivalent IM Intramuscular 02/08/2018 Administe red Fluarix Quadrivalent IM Intramuscular 12/06/2018 Administe red PPSV23 (Pnemovax) IM Intramuscular 10/11/2019 Administered Influenza High Dose IM Intramuscular 12/01/2019 Administer ed Covid Vaccine Unknown 04/21/2020 Administered Covid Vaccine Unknown 05/12/2020 Administered pfizer Influenza High Dose IM Intramuscular 12/21/2020 Administer ed SARS-COV-2 Pfizer Unknown 01/02/2021 Administered SARS-COV-2 Pfizer Unknown 01/02/2021 Administered SARS-COV-2 Pfizer Unknown 01/02/2021 Administered SARS-COV-2 Pfizer Unknown 01/02/2021 Administered Influenza High Dose IM Intramuscular 03/10/2022 Administer ed SARS-COV-2 Pfizer Unknown 03/22/2022 Administered [facility] Influenza High Dose IM Intramuscular 12/12/2022 Administer ed Social History Tobacco Use: Social History Observation [...] ast year? No Points 0 Interpretation Negative Problems Problem Type SNOMED Code ICD Code Onset Dates Problem Status W/U Status Risk Notes Problem Thrombocytopenia (216441379) Thrombocytopenia (D69.6) Active confirmed Problem 071732194 Neuropathy (G62.9) Active confirmed Problem 09598169 Lymphocytosis (D72.820) Active confirmed Problem 255810015 Irritable bowel syndrome with diarrhea (K58.0) Active confirmed Problem 848557844 Tubular adenoma (D36.9) Active confirmed Problem 06404467 Anxiety (F41.9) Active confirmed Problem 180057509 Chronic tension- type headache, not intractable (G44.229) Active confirmed Problem 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) Cognitive communication deficit (R41.841) Active confirmed Problem 9829338 Arthritis (M19.90) Active confirmed Problem 835088843 Lumbar disc dise ase (M51.9) Active confirmed Problem 547800948 Gastroesophageal reflux disease without esophagitis (K21.9) Active confirmed Problem 77053811 Essential hypert ension (I10) Active confirmed Problem 154815882 Acquired hypothyroidism (E03.9) Active confirmed Problem 06552949 Other iron defic iency anemia (D50.8) Active confirmed Problem 254098859 Acute systolic congestive heart failure (I50.21) Active confirmed Problem 29539224 Post menopausal problems (N95.9) Active confirmed Problem [id number] Moderate persist ent asthma with acute exacerbation (J45.41) Active confirmed Problem 914020913 History of galls tones (Z87.19) Active confirmed Problem 78084074 Peptic ulcer (K27.9) Active confirmed Problem 295454392 Iron deficiency anemia due to chronic blood loss (D50.0) Active confirmed Problem 95574193 Dysthymia (F34.1) Active confirmed Problem 536882939 Panic attacks (F41.0) Active confirme d Problem 913062517 Migraine without aura and with status migrainosus, not intractable (G43.001) Active confirmed Problem 283669263 Vaginal bleeding (N93.9) Active confirmed Problem 3882563971899 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) Active confirmed Problem Ascending aorta dilatation (093111511) Ascending aorta dilatation (I77.810) Active confirmed Problem 38904358 Hypercholesterol emia (E78.00) Active confirmed Problem 296628397 BMI 36.0-36.9,ad ult (Z68.36) Active confirmed Problem 071474375 Intermittent atr ial fibrillation (I48.0) Active confirmed Problem 955249259 Cerebrovascular accident (CVA) due to embolism of left carotid artery (I63.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) Active confirmed Problem 84440712 Sinusitis chroni c, frontal (J32.1) Active confirmed Problem Inflammation of joint of shoulder region (821523947) Shoulder arthritis (M19.019) Active confirmed Problem 52903234 Stasis dermatiti s of both legs (I87.2) Active confirmed Problem 295563405 Persistent atria l fibrillation (I48.19) Active confirmed Problem 128434916 Benign paroxysma l positional vertigo, unspecified laterality (H81.10) Active confirmed Vital Signs Blood pressure diastolic 70 mm Hg 06/28/2024 louis ght is up 3 pounds since 05-06-24 Height 64 in 07/25/2024 weight is 189 B P not taken at home no temp Blood pressure systolic 112 mm Hg 06/28/2024 louisg ht is up 3 pounds since 05-06-24 Weight 189 lbs 07/25/2024 weight is 189 B P not taken at home no temp BMI 32.44 kg/m2 07/25/2024 weight is 189 B P not taken at home no temp Encounters Encounter Location Date Provider Diagnosis Rai Fabian MD [address] [place] [address] [id number] 2024 Rai Fabian Acquired hypothyroid ism E03.9 ; Essential hypertension I10 ; Lymphocytosis D72.820 and Hypercholesterolemia E78.00 Rai Fabian MD [address] [place] [address] [id number] 08/01/2024 Rai Fabian Iron deficiency anem ia due to chronic blood loss D50.0 Rai Fabian MD [address] [place] [address] [id number] 10/02/2023 Rai Fabian Lumbar disc disease M51.9 and History of total left knee replacement Z96.652 Rai Fabian MD [address] [place] [address] [id number] 12/15/2023 Rai Fabian Acute non-recurrent maxillary sinusitis J01.00 Rai Fabian MD [address] [place] [address] [id number] 02/26/2024 Rai Fabian Acute non-recurrent frontal sinusitis J01.10 Rai Fabian MD [address] [place] [address] [id number] 03/29/2024 Rai Fabian Shortness of breath R06.02 Rai Fabian MD [address] [place] [address] [id number] 04/04/2024 Rai Fabian Acute systolic conge stive heart failure I50.21 Rai Fabian MD [address] [place] [address] [id number] 05/06/2024 Rai Fabian UTI (urinary tract infection) N39.0 ; Essential hypertension I10 ; Anxiety, generalized F41.1 ; Acquired hypothyroidism E03.9 ; Gastroesophageal reflux disease without esophagitis K21.9 ; Hypercholesterolemia E78.00 and Acute systolic congestive heart failure I50.21 Rai Fabian MD [address] [place] [address] [id number] 06/28/2024 Rai Fabian Anxiety F41.9 Rai Fabian MD [address] [place] [address] [id number] 07/12/2024 Rai Fabian COVID-19 U07.1 Rai Fabian MD [address] [place] [address] [id number] 07/25/2024 Rai Fabian COVID-19 U07.1 and Thrombocytopenia D69.6 Rai Fabian MD [address] [place] [address] [id number] 09/04/2023 Rai Fabian MD [address] [place] [address] [id number] 09/17/2023 Rai Fabian MD [address] [place] [address] [id number] 10/05/2023 Rai Fabian MD [address] [place] [address] [id number] 10/05/2023 Rai Fabian MD [address] [place] [address] [id number] 03/24/2024 Rai Fabian MD [address] [place] [address] [id number] 04/12/2024 Rai Fabian MD [address] [place] [address] [id number] 05/08/2024 Rai Fabian MD [address] [place] [address] [id number] 05/08/2024 Rai Fabian MD [address] [place] [address] [id number] 06/14/2024 Rai Fabian MD [address] [place] [address] [id number] 07/18/2024 Rai Fabian MD [address] [place], [place] [id number] 07/19/2024 Rai Fabian Assessments Encounter Date Diagnosis (ICD Code) Assessment Notes Treatment Notes Treatment Clinical Notes Section Notes 2024 Acquired hypothyroid ism (ICD-10 - E03.9) 2024 Essential hypertensi on (ICD-10 - I10) 08/01/2024 Iron deficiency anem ia due to chronic blood loss (ICD-10 - D50.0) 10/02/2023 Lumbar disc disease (ICD-10 - M51.9) going to [facility] for question 10/02/2023 History of total lef t knee replacement (ICD-10 - Z96.652) had tkr and went home immediately in order to care for her dying friend but was unalble to function at home so went back to hospital and was readmitted to hospital in order to get into rehab. has been doing well since then. 12/15/2023 Acute non-recurrent maxillary sinusitis (ICD-10 - J01.00) patient verbalized understanding of medication and directions for use 02/26/2024 Acute non-recurrent frontal sinusitis (ICD-10 - J01.10) patient verbalized understanding of medication and directions for use 03/29/2024 Shortness of breath (ICD-10 - R06.02) has called her cardilogist and they gave her appt in 1.5 months. ecg with no changes acute CXR order given to the patient. 04/04/2024 Acute systolic congestive heart failure (ICD-10 - I50.21) is doing much better. is thinking of traveling to [place]. should wait until she gets seen by cardiology 05/06/2024 UTI (urinary tract infection) (ICD-10 - N39.0) pending labs awaiting test results 05/06/2024 Essential hypertensi on (ICD-10 - I10) stable, will continue current regiment stable 06/28/2024 Anxiety (ICD-10 - F41.9) having a lot of anxiety over the will. it is not being contested. 07/12/2024 COVID-19 (ICD-10 - U07.1) hold atorvastatin for week, patient verbalized understanding of medication and directions for use 07/25/2024 COVID-19 (ICD-10 - U07.1) doing better 07/25/2024 Thrombocytopenia (ICD-10 - D69.6) will conitnue to monitor , pending labs 2024 Lymphocytosis (ICD-1 0 - D72.820) 05/06/2024 Anxiety, generalized (ICD-10 - F41.1) patient verbalized understanding of medication and directions for use doing well, w 2024 Hypercholesterolemia (ICD-10 - E78.00) 05/06/2024 Acquired hypothyroid ism (ICD-10 - E03.9) stable, will continue current regiment 05/06/2024 Gastroesophageal ref lux disease without esophagitis (ICD-10 - K21.9) stable, will continue current regiment 05/06/2024 Hypercholesterolemia (ICD-10 - E78.00) stable, will continue current regiment 05/06/2024 Acute systolic congestive heart failure (ICD-10 - I50.21) stable, will continue current regiment Plan Of Treatment Pending Test Test Name Order Date Mammogram 08/09/2014 Electrocardiogram (EKG) 07/19/2015 Electrocardiogram (EKG) 08/01/2016 XR CHEST 2 VIEW PA & LAT 03/29/2024 Complete Blood Count Auto Diff 5 Future Test Test Name Order Date Complete Blood Count Auto Diff 5 Next Appt Details Provider Name:Rai trotter, 09/09/2024 01:45:00 PM, [address] [place] [address], [address], [phone], Provider Name:Rai trotter, 10/28/2024 07:45:00 AM, [address] [place] [address], [address], [phone], Provider Name:Rai trotter, 11/04/2024 02:00:00 PM, [address] [place] [address], [address], [phone], Provider Name:Rai trotter, 05/04/2025 07:15:00 AM, [address], [address], [place], [place], [phone], Provider Name:Rai Calderon Cristi avilar, 05/11/2025 02:30:00 PM, [address], [address], [place], [place], [phone], Insurance Providers Payer Name Payer Address Payer Phone Subscriber Number Group Number Insured Name Patient Relationship to Insured Coverage Start Date Coverage End Date [employer] [address] [place] [address] [id number] Mandie Gonzalez Self - patient is the insured Medical (General) History Medical History History ICD Code hypertension peptic ulcer adenomatous polyp carpal tunnel colonoscopy 2007; colonoscop y done 12/07/[address] Taylor-no further testing indicated.07/14/22 colonoscopy awaiting path no further colonoscopys. neg biopsy Surgical History Surgery Date(Month/Year) dropped bladder and mesh 2009
--- OUTSIDE RECORDS SUMMARY | 2024-08-01 12:31 | XMS_ITS ---
Author Organization Rai Fabian MD Address [address] [place] [address] [phone] Support Name Relationship Address Phone Rai Fabian Caregiver [address] [facility] [address] [place] [address] [phone] Nicole Díaz Caregiver [address] [facility] [address] [place] [address] [phone] Raheel Morley Caregiver [address] [facility] [address] [place] [address] [phone] Travis Taylor Caregiver [address] [facility] [address] [place] [address] [phone] May Landis Caregiver [address] [facility] [address] [place] [address] [phone] DOROTHY GONZALEZ Caregiver [address] [facility] [address] [place] [address] [phone] Lele Childress Caregiver [address] [facility] [address] [place] [address] [phone] BILL MEDINA Caregiver [address] [facility] [address] [place] [address] [phone] Judy Woods Caregiver [address] [facility] [address] [place] [address] [phone] CAMILLE SINGER Caregiver [address] [facility] [address] [place] [address] [phone] ANILA BATES Caregiver [address] [place] [address] [phone] TRAVIS COFFEY Emergency Contact Unknown Mandie Gonzalez Guarantor Unknown [phone] Care Team Providers Care Hammer Repairer Name Role Phone RuiMariselan Primary Care Provider [phone] REASON FOR VISIT Trouble breathing Encounters Encounter Location Date Provider Diagnosis Rai Fabian MD [address] [place] [address] [address] [place] [phone] 07/19/2024 Rai Fabian Plan Of Treatment Next Appt Details Provider Name:Rai Colin ier, 09/09/2024 01:45:00 PM, [address] [place] [address], [address], [place], [phone], Provider Name:Rai Colin ier, 10/28/2024 07:45:00 AM, [address] [place] [address], [address], [place], [phone], Provider Name:Rai trotter, 11/04/2024 02:00:00 PM, [address] [place] [address], [address], [place], [phone], Provider Name:Rai Colin ier, 05/04/2025 07:15:00 AM, [address] [place] [address], [address], [place], [phone], Provider Name:Rai avilar, 05/11/2025 02:30:00 PM, [address] [place] [address], [address], [place], [phone], Progress Notes * Aaron GONZALEZOB: 9 (74 yo F)Acc No.[id number]:07/19/2024 Patient:?Mandie GONZALEZ :1950???Age:74 Y???Sex:Female Address:[address] [place] [address] Kit, [place] [address] * true * Date:? Generated for Printi mehnaz/Dash/eTransmitting on:?08/01/2024 12:31 PM EDT
--- OUTSIDE RECORDS SUMMARY | 2024-08-01 12:32 | XMS_ITS ---
Author Organization [facility] Address [address] [place] [phone] Care Team Providers Care Half Section Ironer Name Role Phone Rai Fabian MD Primary Care Provider Travis Perez [phone] REASON FOR VISIT Needs labs Medications Medication SIG (Take, Route, Fr equency, Duration) Notes Start Date End Date Status Lomotil 2.5-0.025 MG 1 or 2 Orally Every 6 hours as needed for diarrhea for 30 days 06/30/2023 Active Problems Problem Type SNOMED Code ICD Code Onset Dates Problem Status W/U Status Risk Notes Problem Melena (5264906) Melena (K92.1) Active confirmed Encounters Encounter Location Date Provider Diagnosis [facility] [address] [address] 06/29/2023 Travis Prado K92.1 Assessments Encounter Date Diagnosis (ICD Code) Assessment Notes Treatment Notes Treatment Clinical Notes Section Notes 06/29/2023 Melena (ICD-10 - K92.1) Plan Of Treatment Medication Medication Name Sig Start Date Stop Date Notes Lomotil 2.5-0.025 MG 1 or 2 Orally Every 6 hours as needed for diarrhea for 30 days 06/30/2023 Pending Test Test Name Order Date CHEM 7 PROFILE 06/29/2023 CBC w DIFF 06/29/2023 Progress Notes * JAKOB BECERRIL IDOB: [birth year] (73 yo F)Acc No.[id number]:06/29/2023 Patient:?JAKOB BECERRIL I :1950???Age:73 Y???Sex:Female Address:[address] [place] [address], [place] [address] * Refills? Start Lomotil Tablet, 2.5-0.025 MG, Orally, 60, 1 or 2, Every 6 hours as needed for diarrhea, 30 days, Refills=3 Subjective: * Chief Complaints: * ???Needs labs * Medical History:? * Surgical History:? * Hospitalization/Major Diagno stic Procedure:? * Medications:? Objective: Assessment: * Assessment: 1.?Melena - K92.1 (Primary)? Plan: * Treatment: 2.?Others? Start Lomotil Tablet, 2.5-0.025 MG, 1 or 2, Orally, Every 6 hours as needed for diarrhea, 30 days, 60, Refills 3.?? * Procedure Codes:? * true * Date:? Generated for Sienna darby/Dash/eTransmitting on:?08/01/2024 12:31 PM EDT
--- OUTSIDE RECORDS SUMMARY | 2024-08-01 12:32 | XMS_ITS ---
Author Organization Rai Fabian MD Address [address] [place] [phone] Support Name Relationship Address Phone Rai Fabian Caregiver [address] [facility] [address] [facility] [address] [place] [address] [phone] Nicole Díaz Caregiver [facility] [address] [place] [address] [phone] Raheel Morley Caregiver [address] [facility] [address] [facility] [address] [place] [address] [phone] Travis Taylor Caregiver [address] [facility] [address] [facility] [address] [place] [address] [phone] May Landis Caregiver [address] [facility] [address] [facility] [address] [place] [address] [phone] DOROTHY GONZALEZ Caregiver [address] [facility] [address] [address] [place] [address] [phone] Lele Childress Caregiver [address] [facility] [address] [place] [address] [phone] BILL MEDINA Caregiver [address] [facility] [address] [address] [place] [address] [phone] Judy Woods Caregiver [address] [facility] [address] [address] [place] [address] [phone] CAMILLE SINGER Caregiver [address] [facility] [address] [place] [address] [phone] ANILA BATES Caregiver [address] [place] [address] [phone] TRAVIS COFFEY Emergency Contact Unknown Mandie Gonzalez Guarantor Unknown [phone] Care Team Providers Care Project Management Analyst Name Role Phone Rai Fabian Primary Care Provider REASON FOR VISIT week repeat CBC Encounters Encounter Location Date Provider Diagnosis Rai Fabian MD [address] [place] [address] [phone] 08/01/2024 Rai Fabian Iron deficiency anemia due to chronic blood loss D50.0 Assessments Encounter Date Diagnosis (ICD Code) Assessment Notes Treatment Notes Treatment Clinical Notes Section Notes 08/01/2024 Iron deficiency anemia due to chronic blood loss (ICD-10 - D50.0) Plan Of Treatment Pending Test Test Name Order Date Complete Blood Count Auto Diff Next Appt Details Provider Name:Rai trotter, 09/09/2024 01:45:00 PM, [address] [place] [address], [address], [phone], Provider Name:Rai trotter, 10/28/2024 07:45:00 AM, [address] [place] [address], [address], [phone], Provider Name:Rai trotter, 11/04/2024 02:00:00 PM, [address] [place] [address], [address], [phone], Provider Name:Rai trotter, 05/04/2025 07:15:00 AM, [address] [place] [address], [address], [phone], Provider Name:Rai trotter, 05/11/2025 02:30:00 PM, [address] [place] [address], [address], [phone], Progress Notes * Aaron GONZALEZOB: (74 yo F)Acc No.[id number]:08/01/2024 Progress Note Patient:?GONZALEZ Mandie Provider:?Rai Fabian MD :1950???Age:74 Y???Sex:Female D ate:08/01/2024 Address:[address] [place] [address], [place] [phone] Subjective: * Chief Complaints: * ???1. week repeat CBC. * Medical History:? Objective: * Vitals:? Assessment: * Assessment: 1.?Iron deficiency anemia du e to chronic blood loss - D50.0 (Primary)??? Plan: * Treatment: * Procedure Codes:?28559 VENIP UNCT, ROUTINE* * * The named appointment provid er may or may not be the originator of this progress note, and it is not deemed complete until electronically signed by the appointment provider. Sign off status: Pending * Provider:?Rai Fabian MD Date:?0 08/01/2024 Generated for Sienna darby/Dash/Bennieitting on:?08/01/2024 12:32 PM EDT
--- OUTSIDE RECORDS SUMMARY | 2024-08-01 12:32 | XMS_ITS | Patient Health Record ---
Author Organization [facility] Address [address] [facility] [place] [address] Care Team Providers Care Headstart Teacher Name Role Phone Rai Fabian MD Primary Care Provider Valente Mendoza Unavailable [phone] Allergies No Known Allergies Reason For Referral [...] Status Risk Notes Problem Acquired hallux valgus (73637802) Hallux valgus (acquired), left foot (M20.12) Active confirmed Problem Localized, primary osteoarthritis of the ankle and/or foot (583586390) Primary osteoarthrit is, right ankle and foot (M19.071) Active confirmed Problem Localized, primary osteoarthritis of the ankle and/or foot (529564330) Primary osteoarthrit is, left ankle and foot (M19.072) Active confirmed Problem Acquired hallux valgus (62011212) Hallux valgus (acquired), right foot (M20.11) Active confirmed Problem Acquired hammer toe of right foot (9131099896204817) Other hammer toe(s) (acquired), right foot (M20.41) Active confirmed Problem Acquired hammer toe of left foot (9867221313451648) Other hammer toe(s) (acquired), left foot (M20.42) Active confirmed Plan Of Treatment Pending Test Test Name Order Date X ray : Ankle, left 2V 02/12/2021 X ray : Foot, left 2V 06/25/2015 X ray : Foot, right 2V 06/25/2015 X ray : Foot, left 3V 02/12/2021 X ray : Foot, right 3V 04/28/2016 [id number] NAIL, 1-5 08/16/2014, J0702- INJECT or DRAIN, JOINT/BUR SA 09/27/2018, J0702- INJECT or DRAIN, JOINT/BUR SA 03/25/2019, J0702- INJECT or DRAIN, JOINT/BUR SA 02/12/2021, J0702- INJECT or DRAIN, JOINT/BUR SA 06/12/2021, J0702- INJECT or DRAIN, JOINT/BUR SA 10/03/2019, J0702- INJECT or DRAIN, JOINT/BUR SA 09/03/2020, J0702- INJECT or DRAIN, JOINT/BUR SA 12/07/2020, U2553-CKBRZ/INJECT, JOINT/BURSA 0 12/07/2020, R9088-OLNXU/INJECT, JOINT/BURSA 0 10/03/2019, O4539-LOKLE/INJECT, JOINT/BURSA 0 06/12/2021, C0644-PWEPA/INJECT, JOINT/BURSA 0 03/25/2019, H3549-CTNTI/INJECT, JOINT/BURSA 0 09/27/2018, B9126-JLXFM/INJECT, JOINT/BURSA 0 12/01/2016, J0959-GZLJR/INJECT, JOINT/BURSA 1 04/18/201686570, D8641-PQQKE/INJECT, JOINT/BURSA 0 04/08/201814986- Ganglion Cyst Injection/Aspiratio n 10/03/2019 58609, J0702- Neuroma/Injection 02/17/20 17 33995, J0702- Neuroma/Injection 08/06/19 16 12103, J0702- Neuroma/Injection 04/03/19 17 52011, J0702- Neuroma/Injection 07/16/19 17 28699, J0702- Neuroma/Injection 09/04/19 17 44494, J0702- Neuroma/Injection 12/02/19 17 Insurance Providers Payer Name Payer Address Payer Phone Subscriber Number Group Number Insured Name Patient Relationship to Insured Coverage Start Date Coverage End Date Medicare [employer] [address] [place] [address] [id number] Mandie Gonzalez Self - patient is the insured [employer] [address] [place] [address] [id number] Mandie Gonzalez Self - patient is the insured Medical (General) History Medical History History ICD Code Arthritis Back,Hip,and Knee pain Chicken pox Measles Mumps Hypertension Thyroid disorder Surgical History Surgery Date(Month/Year) rotator cuff tear repair 09/2013 hand/wrist 04/2012 uterus surgery 09/2010 right foot - [facility] 04/2018 RFA Back 08/31/20 R shoulder replacement 11/06/2020 Hospitalization History Reason Date(Month/Year) [facility]- chest xray [facility]- UTI 1 week /Rehab 3weeks 2021 admitted to [facility] DX- stroke - discharged 09/01/2016 08/28/2016
--- OUTSIDE RECORDS SUMMARY | 2024-08-01 12:32 | XMS_ITS ---
Author Organization [facility] Address [address] [place] [address] Care Team Providers Care Delivery Lead Name Role Phone Rai Fabian MD Primary Care Provider Travis Perez [phone] Encounters Encounter Location Date Provider Diagnosis [facility] [address] [place] [address] 07/03/2023 Travis Taylor Plan Of Treatment No Information Progress Notes * JAKOB BECERRIL IDOB: [birth year] (73 yo F)Acc No.[id number]:07/03/2023 Patient:?JAKOB BECERRIL I :1950???Age:73 Y???Sex:Female Address:[address] [facility], [place] [address] * true * Date:? Generated for Feliciai mehnaz/Dash/eTransmitting on:?08/01/2024 12:32 PM EDT
== END 2024-08-01 11:50 | disposition home or self-care (01) ==
LOC: HO.LNP 11:49
PROVIDERS: Visit Provider Internal Medicine
DX: D50.0 Iron deficiency anemia secondary to blood loss (chronic) (principal)
CPT/HCPCS: 85025

== ENCOUNTER 2024-08-05 18:51 | Inpatient (IN) | payer MEDICARE, SELFPAY ==
--- NOTE | ~2024-08-05 | XR_ITS ---
CLINICAL HISTORY: Pneumonia 1 view chest x-ray Comparison: 07/14/2024 Findings: The lungs are clear. Normal size heart. No acute fracture. IMPRESSION: 1. No acute findings. This document has been electronically signed by: Olayinka Chowdary MD on 08/06/2024 07:24:53
--- NOTE | ~2024-08-05 | CT_ITS ---
CLINICAL HISTORY: altered, confusion CT head without contrast Comparison: None Findings: Involutional change and nonspecific white matter hypodensity. No intracranial mass, midline shift, hydrocephalus, or acute hemorrhage. Orbits, paranasal sinuses, and mastoid air cells are unremarkable. No skull fracture Impression: 1. No acute findings This document has been electronically signed by: Leonor Arcos MD on 08/06/2024 13:37:52
--- NOTE | ~2024-08-05 | CT_ITS ---
CLINICAL HISTORY: abd pain CT abdomen and pelvis with contrast Comparison: CT/SR - CT ABDOMEN PELVIS W IV CON - 08/06/24 12:26 EDT Findings: Marked eventration of the right hemidiaphragm and right lower lobe atelectasis, lungs bases are otherwise clear. Solid organs are otherwise unremarkable. No hiatal hernia. Status post cholecystectomy. Moderate diffuse dilation of the CBD measuring up to 1.3 cm in diameter. No radiopaque stone is identified. No bowel obstruction, pneumoperitoneum, or pneumatosis. Pelvic contents unremarkable. Normal appendix within the right upper quadrant. No acute fracture. Severe multilevel spondylosis of the visualized thoracolumbar spine with severe levoscoliosis at the thoracolumbar junction, unchanged in the interval. IMPRESSION: No acute findings. Moderate eventration of the right hemidiaphragm and associated right lower lobe atelectasis. Status post cholecystectomy and moderate diffuse dilation of the CBD measuring up to 1.3 cm, Unchanged. No radiopaque gallstones. Correlate with serology. Severe multilevel spondylosis of the thoracolumbar spine with severe levoscoliosis at the thoracolumbar junction, unchanged. This document has been electronically signed by: Vivienne Myers MD on 08/09/2024 19:17:40
--- NOTE | ~2024-08-05 | CT_ITS ---
CLINICAL HISTORY: mucousy diarrhea, abd pain, ?blood tinged stool CT abdomen and pelvis with contrast Comparison: CT - CT ABDOMEN PELVIS W IV CON - 08/06/24 12:17 EDT Findings: Elevated right hemidiaphragm with adjacent atelectasis without change. Mild irregularity of the liver contour. Normal spleen size. Unremarkable pancreas and adrenal glands. There are foci of scarring within the bilateral kidneys. There are multiple small kidney cysts. There is no calculus or hydronephrosis. There has been a prior cholecystectomy. There is dilatation of the biliary tree without change, most likely on the basis of prior cholecystectomy. There is thickening of the wall of the colon, most pronounced distally. There is no pneumatosis or portal venous gas. There is a very mild degree of diverticulosis. There is fluid within the colon compatible with a diarrheal illness. There is trace hyperdensity within the lumen of the proximal sigmoid colon (series 15, images 71- 73). There is no bowel obstruction. Pelvic contents unremarkable. Normal appendix. There is moderate scoliosis and advanced degenerative changes of the spine. There is no acute fracture. There is vascular tortuosity. There is no aneurysm or dissection. IMPRESSION: 1. There are findings of colitis, likely ovalles colitis but most pronounced distally. 2. There is a tiny focus of hyperdensity within the lumen of the proximal sigmoid colon, incompletely evaluated as precontrast images were not obtained. This may be incidental but could consider a focus of active bleeding. 3. There is very mild colonic diverticulosis without gross evidence of diverticulitis. This document has been electronically signed by: Leonor Arcos MD on 08/06/2024 13:52:52
--- NOTE | ~2024-08-05 | CT_ITS ---
CLINICAL HISTORY: r.o PE, PNA CT angiography chest with contrast. 3D Postprocessing. Comparison: CT/REG/SR - CT ANGIO CHEST AORTA - 05/28/23 22:43 EST Findings: The heart size is normal. RV/LV ratio is normal. There is elongation of the aorta. There is no aneurysm or dissection. No pulmonary artery filling defects. The visualized thyroid and mediastinum are unremarkable. There is moderate elevation of the right hemidiaphragm with adjacent bandlike foci of atelectasis within the right middle and lower lobes. This is similar to the prior study. No suspicious focus of consolidation or evidence of pleural effusion. Small focus of atelectasis within the lingula. Findings at the level of the abdomen are reported separately. No acute fractures. Prior left shoulder replacement. IMPRESSION: 1. No evidence of pulmonary artery embolism. 2. Moderate elevation of the right hemidiaphragm with adjacent areas of atelectasis, without change. This document has been electronically signed by: Leonor Arcos MD on 08/06/2024 13:58:49
--- NOTE | ~2024-08-05 | CT_ITS ---
CLINICAL HISTORY: Colitis CT abdomen and pelvis without contrast Comparison: None Findings: There is right lower lobe consolidation, possible pneumonia, subsegmental atelectasis, or scarring. Solid organs are within normal limits. There are no abnormal findings in the gallbladder fossa. No renal stones. No bowel obstruction, pneumoperitoneum, or pneumatosis. Pelvic contents unremarkable. Normal appendix. The bones are intact. IMPRESSION: Right lower lobe consolidation, differential considerations noted. This document has been electronically signed by: Olayinka Chowdary MD on 08/06/2024 05:44:33
[2024-08-05 19:15] VITALS: BP 126/78; BP 129/84; PULSE 65; PULSE 96; RESP 24; TEMP 36.7; O2SAT 92; O2SAT 95; BMI 29.4
--- NOTE | 2024-08-05 19:16 | ED.GENADULT ---
HPI - General Adult General Chief complaint: General Medical Stated complaint: ?UTI,WEAKNESS,BLOOD IN URINE Time Seen by Provider: 08/05/24 19:07 Source: patient and EMS Mode of arrival: EMS Limitations: no limitations History of Present Illness ED Provider: Dr. Anju De La Rosa HPI narrative: Patient comes to the emergency room via ambulance from home. According to the patient, for the last 2 days she has been having dysuria and hematuria, no flank pain, mild suprapubic discomfort, no fever chills to her knowledge. Patient states that she told her family about her symptoms and they made her come to the emergency room, EMS was called. Patient denies nausea vomiting or diarrhea Related Data Home Medications ?Medication ?Instructions ?Recorded ?Confirmed apixaban 5 mg tablet (Eliquis) 5 mg PO BID 03/27/20 08/06/24 atorvastatin 40 mg tablet 40 mg PO BEDTIME 03/27/20 08/06/24 conj estrogen-medroxyprogesterone 1 tab PO DAILY 03/27/20 08/06/24 0.625 mg-2.5 mg tablet (Prempro) mzdheyhkgo-wyyvdomlvekkd-bdkounil 1 tab PO Q6H PRN Migraine Headache 05/13/21 08/06/24 50 mg-325 mg-40 mg tablet hydrocodone 5 mg-acetaminophen 325 1 tab PO BID PRN Pain (Scale Score 05/13/21 08/06/24 mg tablet 4-6) albuterol sulfate 90 mcg/actuation 2 puff inhalation Q6H PRN 05/29/23 08/06/24 aerosol inhaler Shortness Of Breath Or Wheezing levothyroxine 50 mcg tablet 50 mcg PO DAILY@0600 05/29/23 08/06/24 escitalopram oxalate 10 mg tablet 10 mg PO DAILY 07/15/24 08/06/24 furosemide 40 mg tablet 40 mg PO DAILY 07/15/24 08/06/24 Previous Rx's ?Medication ?Instructions ?Recorded cefuroxime axetil 500 mg tablet 500 mg PO BID 10 days #20 tabs 08/06/24 diphenoxylate-atropine 2.5 1 tab PO BID PRN diarrhea #10 tabs 08/06/24 mg-0.025 mg tablet (Lomotil) doxycycline hyclate 100 mg tablet 100 mg PO BID #20 tabs 08/06/24 Allergies Allergy/AdvReac Type Severity Reaction Status Date / Time No Known Allergies Allergy Mild N/A Verified 08/05/24 19:18 Review of Systems Review of Systems: Constitutional : No Weight loss, No Fever, No Chills, No Night Sweats, No Fatigue, No Malaise ENT/Mouth : No Hearing loss, No Ear Pain, No Nasal Congestion, No Sinus Pain, No Hoarseness, No sore throat, No Rhinorrhea, No Swallowing Difficulty Eyes: No Eye Pain, No Swelling, No Redness, No Foreign Body, No Discharge, No Vision Changes Cardiovascular : No Chest Pain, No SOB, No Dyspnea on Exertion, No Orthopnea, No Edema, No Palpitations Respiratory : No Cough, No Sputum, No Wheezing, No Smoke Exposure, No Dyspnea Gastrointestinal : No Nausea, No Vomiting, No Diarrhea, No Constipation, No abdominal Pain, No Hematochezia, No Melena Genitourinary : no irregular bleeding, complaining of hematuria and dysuria for 2 days, No Urinary Incontinence, No Urgency, No Flank Pain, No Urinary Flow Changes, No Hesitancy Musculoskeletal : No joint pain, No Myalgias, No Joint Swelling Skin : No Skin Lesions, No rash Neuro : No Weakness, No Numbness, No Paresthesias, No Loss of Consciousness, No Dizziness, No Headache Psych : No Anxiety/Panic, No Depression, No SI/HI/AH/VH, No Social Issues, Heme/Lymph: No Bruising, No Bleeding,No Lymphadenopathy Endocrine : No Polyuria, No Polydipsia, No Temperature Intolerance PMFSH Past Medical History Medical History Class 1 obesity Essential hypertension Persistent atrial fibrillation Primary osteoarthritis involving multiple joints Anxiety GERD (gastroesophageal reflux disease) Carpal tunnel syndrome Stroke Hypothyroidism Arthritis HTN (hypertension) Asthma Obesity Chronic pain Surgical History History of left shoulder replacement History of right shoulder replacement S/P panniculectomy Hx of cholecystectomy S/P foot surgery, right History of bladder surgery History of tonsillectomy Family History Family History Father CVD (cardiovascular disease) Diabetes Mother CVD (cardiovascular disease) HTN (hypertension) Social History Social History Household Members: Significant Other Housing: House Do you presently have visiting nurse or other home services: No Unable to assess alcohol history related to: Unknown Alcohol intake: never Patient Tobacco Use Status: Never used Tobacco Smoked in Last 30 Days: No e-Cigarette/Vaping Use: Never Used Advance Directives: Yes Advance Directives on File: Yes Advance Directives Date on File: 06/02/23 service: No Current occupational status: retired Physical Exam ED Vital Signs: Vital Signs - 24 hr 08/05/24 22:00 08/06/24 00:11 08/06/24 01:17 Temperature 98.3 F 98.2 F 97.9 F Pulse Rate 96 98 92 Respiratory Rate 24 H 20 16 Blood Pressure 134/71 134/64 138/74 Pulse Oximetry 95 96 95 Oxygen Delivery Method Room Air Room Air Room Air 08/06/24 04:16 08/06/24 06:09 08/06/24 10:00 Temperature 98.1 F 97.6 F 98.3 F Pulse Rate 97 94 103 H Respiratory Rate 16 16 18 Blood Pressure 127/58 L 135/78 140/69 H Pulse Oximetry 97 95 96 Oxygen Delivery Method Room Air Room Air 08/06/24 11:38 08/06/24 14:00 08/06/24 14:54 Temperature 98.4 F Pulse Rate 114 H 100 96 Respiratory Rate 18 25 H 24 H Blood Pressure 139/86 151/85 H 153/85 H Pulse Oximetry 96 95 Oxygen Delivery Method Room Air Room Air BMI result Body Mass Index 29.4 Const Other: Appearance: Alert. Oriented X3. No acute distress. well-appearing Eyes: Pupils equal, round and reactive to light. ENT: Pharynx normal. Neck: Normal inspection. Neck supple. No lymph nodes noted. No crepitus CVS: Normal heart rate and rhythm. Pulses normal. Normal S1 and S2 Respiratory: No respiratory distress. Breath sounds normal. No Wheezing. No rales Abdomen: Soft and nontender. No rigidity. No distention. Skin: Skin warm and dry. Normal skin color. Normal skin turgor. Extremities: No lower extremity edema. No Lacerations. No Rash Neuro: Oriented X 3. No motor deficit. No sensory deficit. Moving all extremities. No slurred speech. CN 2 through 12 grossly intact Psych: calm, cooperative, normal affect Course Course Course Narrative: 08/06/24 1105 GARRET Liu I was called to bedside by Arielle NERI. Patient continues to have mucousy blood tinged stools. Multiple episodes overnight. Cdiff testing sent to lab however lab called requesting recollect for GI panel, so this is still pending. I personally evaluated patient at bedside. she is mildly hypertensive, tachycardic between 100-115. afebrile. She appears confused/ altered however it is unclear what her baseline is. She is unable to tell me the year. She can recall her month and day however is unsure of year. She is oriented to place and situation. Becomes agitated when she is unable to answer a question correctly. She does not have any focal neurologic deficits. denies recent falls or head strikes. She tells me she has had diarrhea since yesterday and that this began prior to arrival to ED. She cannot recall any recent antibiotics that she has been on. Reports mild abdominal discomfort only when passing BMs. She is currently anticoagulated with Eliquis secondary to afib. states her last dose was yesterday. > UA obtained yesterday shows possible UTI however given multiple episodes of diarrhea, unclear if this is true infection vs contamination. straight cath ordered for clean sample. Given continued diarrhea and AMS, will repeat CBC and CMP to evaluate for any electrolyte abnormalities, BURKE. I have also added on an ammonia level, TSH, and VBG. lactic + blood cultures ordered. OBS sent. CT head/brain ordered. repeat CT a/p w/ con ordered to assess for colitis. > zosyn and IVF ordered for coverage. Natasha's PE: General: well appearing, in no acute distress Skin: Warm, dry, intact. No rashes or lesions. Head: Normocephalic, atraumatic. EENT: Hearing is intact b/l. Conjunctiva clear. Sclera is anicteric. pupils constricted b/l. EOM intact. Moist mucous membranes.? Cardiac: Chest wall symmetric. RRR Lungs: Normal respiratory effort without accessory muscle use. CTA bilaterally Abdomen: Soft, non-tender, non-distended. No rebound tenderness or guarding. Positive BS x4. Back: No midline spinous or paraspinal tenderness. No step off deformity. Ext: Upper and lower extremities atraumatic, without tenderness, deformity, swelling or erythema. Full ROM throughout Neuro: alert, oriented to place/situation. No facial droop, pronator drift, or slurred speech. Strength 5/5 intact throughout. Sensation intact to light touch. NV intact distally. 08/06/24 1550 Natasha Gan PA-C -- Repeat CBC shows stable H&H at 11.6/36.6. No leukocytosis or left shift. Chemistry without acute electrolyte abnormality requiring intervention. BUN improved to 18, normal creatinine. Liver function WNL however ammonia slightly elevated to 68. TSH wnl. repeat UA not convincing for infection, likely contamination. c diff negative. gi panel still pending. CT head unremarkable. CTA chest without evidence of pulmonary embolism. I did received call from Radiology regarding CT a/p - there is thickening of the colon wall most pronounced distally concerning for ovalles colitis. There is fluid within the colon compatible with diarrheal illness. There is trace hyperdensity within the lumen of the proximal sigmoid colon which may be incidental but could consider a focus of active bleeding. > I did reach out to on-call GI Dr. Harrington. Given stable H&H with findings consistent with colitis, acute GI bleed is unlikely. > given normal liver enzymes, elevated ammonia likely secondary to infection. Lactulose held at this time as to not worsen patient's diarrhea. > will reach out to hospitalist. anticipate admission. 08/06/24 [id number] Natasha Gan PA-C -- spoke with hospitalist GARRET poon. dr. bullock will be placing admission orders. Medications Administered Generic Name Dose Route Start Last Admin Trade Name Freq PRN Reason Stop Dose Admin Piperacillin Sod/Tazobactam 50 mls @ 100 mls/hr 08/06/24 18:00 08/06/24 19:21 Sod 3.375 gm/ Sodium Chloride IV 100 mls/hr Q6H CORY Administration Levothyroxine Sodium 50 mcg 08/06/24 11:00 08/06/24 11:15 Levothyroxine Sodium 50 Mcg Tablet PO 50 mcg DAILY@0600 CORY Administration Discontinued Medications Generic Name Dose Route Start Last Admin Trade Name Freq PRN Reason Stop Dose Admin Cefuroxime Axetil 250 mg 08/06/24 00:12 08/06/24 00:26 Cefuroxime Axetil 250 Mg Tablet PO 08/06/24 00:13 250 mg ONCE ONE Administration Sodium Chloride 1,000 mls @ 999 mls/hr 08/06/24 04:36 08/06/24 08:30 Ns IV 08/06/24 05:36 Infused .Q1H1M ONE Infusion Sodium Chloride 1,000 mls @ 999 mls/hr 08/06/24 11:30 08/06/24 14:11 Ns IV 08/06/24 12:30 Infused .Q1H1M CORY Infusion Piperacillin Sod/Tazobactam 100 mls @ 200 mls/hr 08/06/24 12:30 08/06/24 14:12 Sod 4.5 gm/ Sodium Chloride IV 08/06/24 12:59 Infused ONCE ONE Infusion Iohexol 100 ml 08/06/24 12:47 08/06/24 12:47 Iohexol 350 Mg/Ml 100 Ml Infus..Btl IV 08/06/24 12:48 100 ml ONCE ONE Administration Loperamide HCl 4 mg 08/06/24 01:59 08/06/24 02:07 Loperamide Hcl 2 Mg Capsule PO 08/06/24 02:00 4 mg ONCE ONE Administration Loperamide HCl 2 mg 08/06/24 10:55 08/06/24 11:15 Loperamide Hcl 2 Mg Capsule PO 08/06/24 10:56 2 mg ONCE ONE Administration Tramadol HCl 50 mg 08/06/24 01:59 08/06/24 02:07 Tramadol Hcl 50 Mg Tablet PO 08/06/24 02:00 50 mg ONCE ONE Administration Medical Decision Making Medical Decision Making MDM Narrative: my interpretation of labs: No significant abnormality patient's hematology and chemistry, normal LFTs, urinalysis positive for blood, leukocyte esterase, bacteria. Patient has no flank pain normal vitals, no fever patient has a UTI, no flank pain or sepsis suspected. Patient was given the 1st dose of cefuroxime in the emergency room I was informed by the patient's nurse the patient has had small amounts of diarrhea. Patient states that she has been taking loperamide at home. when patient arrived to emergency room and I asked her if she has any diarrhea, patient denied. However, patient now states that it has been going on for several days. patient states that she can not clean herself and her family can not help her much now that she has diarrhea. also, patient states that she feels too weak and will like to go to a short-term rehab. Patient was given a dose of Lomotil patient will have a physical therapy and case management evaluation tomorrow. Patient and her agree with plan 430am Dr.Zaidi NERI informed that patient has been having multiple episodes of watery diarrhea since she arrived she had about 6 or 7 times and last few 1 had some blood tinged patient denied any history of any antibiotic use been having diarrhea for last 4 days multiple episodes with slight nausea no prior history of similar complaints in the past no seafood ingestion or bad food no other family member sick patient's feels very dry and has diffuse abdominal cramps will give IV fluids CT scan of the abdomen check stool for C diff and culture and re-evaluate patient has received Imodium in the ER 06:[address] scan abdomen negative for acute except showing right lower lobe consolidation. Patient denied any cough will continue cefuroxime p.o. vitals are stable awaiting for the case management Time: 08:13 Date: 08/06/24 Provider: GARRET Liu Patient in physician observation for case management needs. VS stable. I have reviewed all work up results - CBC and CMP are wnl. UA appears mildly infected - treated w/ ceftin. cxr unremarkable. ct a/p without evidence of colitis. patient had small amount of loose stools this morning. cdiff/ gi panel pending. Patient is pending placement at facility/pending PT/CM eval. will continue home meds once med rec is completed. Will continue to monitor. Differential Diagnosis Differential Diagnoses: The differential diagnosis associated with the presentation includes ( UTI, pyelonephritis) Lab Data [facility] Lab Attestation statement: I reviewed the patient's lab results. 08/06/24 11:44 08/06/24 11:44 Labs: Lab Results 08/05/24 08/05/24 08/06/24 Range/Units 21:25 23:11 09:25 WBC 6.2 (4.8-10.8) X10*3/uL RBC 4.16 L (4.20-5.50) X10*6/uL Hgb 11.6 L (12.0-16.0) g/dl Hct 35.1 L (37.0-47.0) % MCV 84.4 (80.0-98.0) fL MCH 27.9 (27.0-33.0) pg MCHC 33.0 (31.0-35.0) g/dl RDW 16.0 (11.0-16.0) % Plt Count 134 L D (160-400) X10*3/uL MPV 10.8 (9.4-12.3) fL Immature Gran % (Auto) 0.3 (0.0-0.4) % Neut % (Auto) 70.7 (45-73) % Lymph % (Auto) 18.5 L (20-40) % [place] % (Auto) 8.6 (2-11) % Eos % (Auto) 1.6 (0-4) % Baso % (Auto) 0.3 (0-2) % Lymph # (Auto) 1.1 L (1.2-4.9) X10*3/uL [place] # (Auto) 0.5 (0.1-1.2) X10*3/uL Eos # (Auto) 0.1 (0.0-0.4) X10*3/uL Baso # (Auto) 0.0 (0.0-0.2) X10*3/uL Abs Immat Gran (auto) 0.02 (0.00-0.03) X10*3/uL Absolute Neuts (auto) 4.3 (2.0-8.3) x10*3/uL Absolute Nucleated RBC 0.000 (0.0-0.012) X10*3/uL Nucleated RBC % (auto) 0.0 (0.0-0.2) /100WBC Smear Tech's Comments VERIFIED VBG pH (7.32-7.43) VBG pCO2 mmHg VBG pO2 mmHg VBG HCO3 (22-26) mmol/L VBG O2 Saturation % VBG Base Excess mmol/L Sodium 138 (135-145) mmol/L Potassium 4.4 (3.3-5.1) mmol/L Chloride 101 (96-108) mmol/L Carbon Dioxide 24 (22-29) mmol/L Anion Gap 17 (12-20) BUN 25 H (9-16) mg/dL Creatinine 1.15 (0.5-1.4) mg/dL Estim Creat Clear Calc 43.5 Estimated GFR 46 Random Glucose 82 (60-115) mg/dL Lactic Acid (0.5-2.0) mmol/L Lactic Acid F/U @ 2Hr (0.5-2.0) mmol/L Calcium 9.5 (8.4-10.2) mg/dL Magnesium (1.6-2.6) mg/dL Total Bilirubin 0.5 (0.0-1.0) mg/dL Direct Bilirubin 0.2 (0.0-0.5) mg/dL AST 27 (5-31) U/L ALT 10 (0-31) U/L Alkaline Phosphatase 59 (39-117) U/L Ammonia (13-55) umol/L Total Protein 6.6 (6.5-8.0) g/dL Albumin 3.4 L (3.5-5.0) g/dL Lipase (8-78) U/L TSH (0.32-4.0) uIU/mL Urine Color Yellow Urine Appearance Turbid Urine pH 5.5 (5.0-9.0) Ur Specific [place] 1.015 (1.005-1.025) Urine Protein 30 (1+) H (Neg-Trace) mg/dL Urine Glucose (UA) Negative (Negative) mg/dL Urine Ketones Trace (Negative) mg/dL Urine Blood Large (3+) H (Negative) Urine Nitrite Negative (Negative) Ur Leukocyte Esterase Large (3+) H (Negative) Urine RBC 3-5 H (0-2) /HPF Urine WBC 0-5 (0-5) /HPF Ur Squamous Epith Cells 6-10 (0-2) /HPF Urine Bacteria 3+ (None Seen) Hyaline Casts 3-5 (0-2) /LPF Stool Occult Blood (NEGATIVE) C. difficile Tox B Gene NEGATIVE (Negative) 08/06/24 08/06/24 08/06/24 Range/Units 11:40 11:44 11:49 WBC 6.7 (4.8-10.8) X10*3/uL RBC 4.22 (4.20-5.50) X10*6/uL Hgb 11.6 L (12.0-16.0) g/dl Hct 36.6 L (37.0-47.0) % MCV 86.7 (80.0-98.0) fL MCH 27.5 (27.0-33.0) pg MCHC 31.7 (31.0-35.0) g/dl RDW 15.9 (11.0-16.0) % Plt Count 174 D (160-400) X10*3/uL MPV 10.2 (9.4-12.3) fL Immature Gran % (Auto) 0.3 (0.0-0.4) % Neut % (Auto) 73.2 H (45-73) % Lymph % (Auto) 14.1 L (20-40) % Pickett % (Auto) 10.9 (2-11) % Eos % (Auto) 1.2 (0-4) % Baso % (Auto) 0.3 (0-2) % Lymph # (Auto) 0.9 L (1.2-4.9) X10*3/uL [place] # (Auto) 0.7 (0.1-1.2) X10*3/uL Eos # (Auto) 0.1 (0.0-0.4) X10*3/uL Baso # (Auto) 0.0 (0.0-0.2) X10*3/uL Abs Immat Gran (auto) 0.02 (0.00-0.03) X10*3/uL Absolute Neuts (auto) 4.9 (2.0-8.3) x10*3/uL Absolute Nucleated RBC 0.000 (0.0-0.012) X10*3/uL Nucleated RBC % (auto) 0.0 (0.0-0.2) /100WBC Smear Tech's Comments VBG pH 7.46 H (7.32-7.43) VBG pCO2 33 mmHg VBG pO2 48 mmHg VBG HCO3 24 (22-26) mmol/L VBG O2 Saturation 79.0 % VBG Base Excess 1.0 mmol/L Sodium 138 (135-145) mmol/L Potassium 4.1 (3.3-5.1) mmol/L Chloride 101 (96-108) mmol/L Carbon Dioxide 24 (22-29) mmol/L Anion Gap 17 (12-20) BUN 18 H (9-16) mg/dL Creatinine 0.85 (0.5-1.4) mg/dL Estim Creat Clear Calc 58.8 Estimated GFR > 60 Random Glucose 84 (60-115) mg/dL Lactic Acid 2.3 H* (0.5-2.0) mmol/L Lactic Acid F/U @ 2Hr (0.5-2.0) mmol/L Calcium 9.4 (8.4-10.2) mg/dL Magnesium 1.9 (1.6-2.6) mg/dL Total Bilirubin 0.5 (0.0-1.0) mg/dL Direct Bilirubin (0.0-0.5) mg/dL AST 24 (5-31) U/L ALT 9 (0-31) U/L Alkaline Phosphatase 60 (39-117) U/L Ammonia 68 H (13-55) umol/L Total Protein 6.5 (6.5-8.0) g/dL Albumin 3.4 L (3.5-5.0) g/dL Lipase 7 L (8-78) U/L TSH 1.76 (0.32-4.0) uIU/mL Urine Color Yellow Urine Appearance Clear Urine pH 5.5 (5.0-9.0) Ur Specific [place] 1.015 (1.005-1.025) Urine Protein Trace (Neg-Trace) mg/dL Urine Glucose (UA) Negative (Negative) mg/dL Urine Ketones 15 (Negative) mg/dL Urine Blood Trace H (Negative) Urine Nitrite Negative (Negative) Ur Leukocyte Esterase Trace H (Negative) Urine RBC 0-2 (0-2) /HPF Urine WBC 6-10 H (0-5) /HPF Ur Squamous Epith Cells 0-2 (0-2) /HPF Urine Bacteria 4+ (None Seen) Hyaline Casts 0-2 (0-2) /LPF Stool Occult Blood POSITIVE (NEGATIVE) C. difficile Tox B Gene (Negative) 08/06/24 Range/Units 15:08 WBC (4.8-10.8) X10*3/uL RBC (4.20-5.50) X10*6/uL Hgb (12.0-16.0) g/dl Hct (37.0-47.0) % MCV (80.0-98.0) fL MCH (27.0-33.0) pg MCHC (31.0-35.0) g/dl RDW (11.0-16.0) % Plt Count (160-400) X10*3/uL MPV (9.4-12.3) fL Immature Gran % (Auto) (0.0-0.4) % Neut % (Auto) (45-73) % Lymph % (Auto) (20-40) % [place] % (Auto) (2-11) % Eos % (Auto) (0-4) % Baso % (Auto) (0-2) % Lymph # (Auto) (1.2-4.9) X10*3/uL [place] # (Auto) (0.1-1.2) X10*3/uL Eos # (Auto) (0.0-0.4) X10*3/uL Baso # (Auto) (0.0-0.2) X10*3/uL Abs Immat Gran (auto) (0.00-0.03) X10*3/uL Absolute Neuts (auto) (2.0-8.3) x10*3/uL Absolute Nucleated RBC (0.0-0.012) X10*3/uL Nucleated RBC % (auto) (0.0-0.2) /100WBC Smear Tech's Comments VBG pH (7.32-7.43) VBG pCO2 mmHg VBG pO2 mmHg VBG HCO3 (22-26) mmol/L VBG O2 Saturation % VBG Base Excess mmol/L Sodium (135-145) mmol/L Potassium (3.3-5.1) mmol/L Chloride (96-108) mmol/L Carbon Dioxide (22-29) mmol/L Anion Gap (12-20) BUN (9-16) mg/dL Creatinine (0.5-1.4) mg/dL Estim Creat Clear Calc Estimated GFR Random Glucose (60-115) mg/dL Lactic Acid (0.5-2.0) mmol/L Lactic Acid F/U @ 2Hr 1.5 (0.5-2.0) mmol/L Calcium (8.4-10.2) mg/dL Magnesium (1.6-2.6) mg/dL Total Bilirubin (0.0-1.0) mg/dL Direct Bilirubin (0.0-0.5) mg/dL AST (5-31) U/L ALT (0-31) U/L Alkaline Phosphatase (39-117) U/L Ammonia (13-55) umol/L Total Protein (6.5-8.0) g/dL Albumin (3.5-5.0) g/dL Lipase (8-78) U/L TSH (0.32-4.0) uIU/mL Urine Color Urine Appearance Urine pH (5.0-9.0) Ur Specific [place] (1.005-1.025) Urine Protein (Neg-Trace) mg/dL Urine Glucose (UA) (Negative) mg/dL Urine Ketones (Negative) mg/dL Urine Blood (Negative) Urine Nitrite (Negative) Ur Leukocyte Esterase (Negative) Urine RBC (0-2) /HPF Urine WBC (0-5) /HPF Ur Squamous Epith Cells (0-2) /HPF Urine Bacteria (None Seen) Hyaline Casts (0-2) /LPF Stool Occult Blood (NEGATIVE) C. difficile Tox B Gene (Negative) Discharge Plan Discharge Clinical Impression: Pancolitis Patient Disposition: Admitted As Inpatient
[2024-08-05 19:26] VITALS: BP 143/74; PULSE 88; RESP 17; O2SAT 96
--- NOTE | 2024-08-05 19:44 | PC.NURSE ---
Patient is a 74 yo f with a pmhx significant for osteoarthritis, persisent a fib on eliquis, hx CVA, HTN. hypothyroid, GERD, anxiety, mild intermittent asthma, and migraines who presented from home with c/o UTI symptoms, urgency, hematuria and lower abdominal pain for the past 2 days. Patient alert but sleepy and appears slow to respond and unable to answer simple questions. ekg monitor applied and afib noted. Lungs essenitally clear bilat. Respirations even and non-labored. Abomen soft, non-tender with positive bowel sounds. Positive pedal pulses with no edema.
[2024-08-05 20:00] VITALS: BP 128/80; PULSE 86; RESP 21; TEMP 36.8; O2SAT 97
--- OUTSIDE RECORDS SUMMARY | 2024-08-05 20:02 | XMS_ITS | Patient Health Record ---
Author Organization Rai Fabian MD Address [address] [place] [address] [phone] Support Name Relationship Address Phone Rai Fabian Caregiver [facility] [address] [place] [address] [phone] Nicole Díaz Caregiver [facility] [address] [place] [address] [phone] Raheel Morley Caregiver [facility] [address] [place] [address] [phone] Travis Taylor Caregiver [facility] [address] [place] [address] [phone] May Landis Caregiver [facility] [address] [place] [address] [phone] DOROTHY GONZALEZ Caregiver [facility] [address] [place] [address] [phone] Lele Childress Caregiver 10 [facility] [address] [place] [address] [phone] BILL MEDINA Caregiver [facility] [address] [place] [address] [phone] Judy Woods Caregiver [facility] [address] [place] [address] [phone] CAMILLE SINGER Caregiver [address] [facility] [address] [place] [address] [phone] ANILA BATES Caregiver [address] [place], [place] [phone] TRAVIS COFFEY Emergency Contact Unknown Mandie Gonzalez Guarantor Unknown [phone] Care Team Providers Care Human Services Manager Name Role Phone Rai Fabian Primary Care Provider [phone] Allergies No Known Allergies Results Component Value Reference Range Notes Complete Blood Count Auto Di ff Reviewed date:2024 01:37:22 PM Interpretation: Performing Lab:[facility], [address] [place] [phone] Notes/Report: White Blood Count 6.2 4.8-10.8 X10*3/uL [...] NRBC Abs Auto 0.000 0.0-0.012 X10*3/uL Comprehensive Denhoff. Panel Fa st Reviewed date:2024 05:58:39 PM Interpretation: Performing Lab:[facility], [address] [place] [phone] Notes/Report: Sodium 137 135-145 mmol/L Potassium 3.8 [...] Panel Reviewed date:2024 12:32:35 PM Interpretation: Performing Lab:[address] [address] Notes/Report: Triglycerides 74 <150 mg/dL Desirable Triglyceride: [...] t Reviewed date:2024 05:59:06 PM Interpretation: Performing Lab:[facility], [address] [place] [address] Notes/Report: [id number] Urine, Clean Catch Color Urine Yellow Appearance Urine Cloudy PH 7.0 5.0-9.0 Glucose Urine UA Negative Negative mg/dL Urine Blood Negative Negative Specific Hillman - Urine 1.020 1.005-1.025 Urine Protein Trace [...] t Reviewed date:05/06/2024 04:59:39 PM Interpretation: Performing Lab:[facility], [address] [place] [phone] Notes/Report: [id number] Urine, Clean Catch Color Urine Yellow Appearance Urine Clear PH 6.5 5.0-9.0 Glucose Urine UA Negative Negative mg/dL Urine Blood Negative Negative Specific Hillman - Urine 1.010 1.005-1.025 Urine Protein Negative Neg-Trace mg/dL Urine Ketones Negative Negative mg/dL Nitrite Urine Positive Negative Leukocyte Esterase Urine Negative Negative RBC Urine 0-2 0-2 /HPF WBC Urine 0-5 0-5 /HPF Squamous Epithelial Cell Urine 0-2 0-2 /HPF Bacteria Urine 4+ None Seen Hyaline Casts Urine 0-2 0-2 /LPF XR chest 2V Reviewed date:04/01/2024 05:25:23 PM Interpretation: Performing Lab: Notes/Report: [address] [address] XRay Report Signed Patient: Mandie Gonzalez I MR#: [id number] : 1950 Acct:[id number] Age/Sex: 73 / F ADM Date: 03/29/24 Loc: HO.ANISH Attending Dr: Rai Fabian MD Ordering Physician: Rai Fabian MD Date of Service: 03/29/24 Procedure(s): XR chest 2V Accession Number(s): [id number] cc: Rai Fabian MD CLINICAL HISTORY: SOB 2 view chest x-ray Comparison: None Findings: The lungs are clear. Normal size heart. No acute fracture. IMPRESSION: 1. No acute findings. This document has been electronically signed by: Olayinka Chowdary MD on 03/31/2024 19:01:41 Dictated By: Olayinka Chowdary MD Signed By: <Electronically signed by Olayinka Chowdary MD in OV> 03/31/241901 DD/ 00 TD/TT: 03/31/241900 Operations Assistant: [address] [address] XRay Report Signed Patient: Tana Gonzalez MR#: [id number] : 1950 Acct:[id number] Age/Sex: 73 / F ADM Date: 03/29/24 Loc: HO.XRAY Attending Dr: Rai Fabian MD Ordering Physician: Rai Fabian MD Date of Service: 03/29/24 Procedure(s): XR leeroy st 2V Accession Number(s): [id number] cc: Rai Fabian MD CLINICAL HISTORY: SOB 2 view chest x-ray Comparison: None Findings: The lungs are clear. Normal size heart. No acute fracture. IMPRESSION: 1. No acute findings. This document has be en electronically signed by: Olayinka Chowdary MD on 03/31/2024 19:01:41 Dictated By: Owen Chowdary MD Signed By: <Electronically signed by Olayinka Chowdary MD in OV> 03/31/241901 DD/ 00 TD/TT: 03/31/241900 Operations Assistant: Urine Culture Reviewed date:04/12/2024 01:25:02 PM Interpretation: Performing Lab:[facility], [address] [place] [address] Notes/Report: O:ESCCOL Escherichia coli Urine Culture Quant Urine Culture > 100,000 cfu/mL Ampicillin >=32 Cefazolin (Urine) 8 Cefepime <=0.12 Ceftriaxone <=0.25 Ciprofloxacin <=0.06 Gentamicin <=1 Nitrofurantoin <=16 Trimethoprim/Sulfamethox azole <=20 Urine Culture Reviewed date:05/10/2024 01:08:11 PM Interpretation: Performing Lab:[facility], [address] [place] [address] Notes/Report: O:ESCCOL Escherichia coli Urine Culture Quant Urine Culture > 100,000 cfu/mL Ampicillin >=32 Cefazolin (Urine) 4 Cefepime <=0.12 Ceftriaxone <=0.25 Ciprofloxacin <=0.06 Gentamicin <=1 Nitrofurantoin <=16 Trimethoprim/Sulfamethox azole <=20 Complete Blood Count Auto Di ff Reviewed date:07/14/2024 04:47:27 PM Interpretation: Performing Lab:[facility], [address] [place] [phone] Notes/Report: White Blood Count 4.1 4.8-10.8 X10*3/uL [...] INR Reviewed date:07/15/2024 10:26:39 AM Interpretation: Performing Lab:[facility], [address] [place] [phone] Notes/Report: Prothrombin Time 15.5 10.9-12.4 SEC INTERNATIONAL [...] Panel Reviewed date:07/14/2024 04:50:40 PM Interpretation: Performing Lab:[facility], [address] [place] [address] Notes/Report: Bilirubin Total 0.3 0.0-1.0 mg/dL Bilirubin Direct 0.1 0.0-0.5 mg/dL Aspartate Amino Transferase 49 5-31 U/L Alanine Aminotransferase 23 0-31 U/L Total Protein 6.9 6.5-8.0 g/dL Albumin Level 3.7 3.5-5.0 g/dL Alkaline Phosphatase 59 39-117 U/L Basic Metabolic Panel Reviewed date:07/14/2024 04:58:52 PM Interpretation: Performing Lab:[facility], [address] [place] [phone] Notes/Report: Sodium 140 135-145 mmol/L Potassium 4.5 [...] Magnesium Reviewed date:07/14/2024 04:52:00 PM Interpretation: Performing Lab:[facility], [address] [place] [address] Notes/Report: Magnesium 1.8 1.6-2.6 mg/dL D Dimer High Sensitivity Reviewed date:07/15/2024 10:26:31 AM Interpretation: Performing Lab:[facility], [address] [place] [phone] Notes/Report: D Dimer High Sensitivity < 150 [...] date:07/14/2024 04:48:41 PM Interpretation: Performing Lab: Notes/Report: [address] [address] XRay Report Signed Patient: Mandie Gonzalez I MR#: [id number] : 1950 Acct:[id number] Age/Sex: 74 / F ADM Date: 07/14/24 Loc: HO.ED Attending Dr: Ordering Physician: Tara Simpson Date of Service: 07/14/24 Procedure(s): XR chest 1V Accession Number(s): [id number] cc: Rai Fabian MD; Tara Simpson EXAMINATION: [...] 07/14/24 1521 DD/ 1416 TD/TT: 07/14/24 1507 Operations Assistant: [address] [address] XRay Report Signed Patient: Tana Gonzalez MR#: [id number] : 1950 Acct:[id number] Age/Sex: 74 / F ADM Date: 07/14/24 Loc: .ED Attending Dr: Ordering Physician: Tara Simpson Date of Service: 07/14/24 Procedure(s): XR leeroy st 1V Accession Number(s): [id number] cc: Rai Fabian MD; Tara Simpson EXAMINATION: [...] 07/14/24 1521 DD/ 1416 TD/TT: 07/14/24 1507 Operations Assistant: Complete Blood Count Auto Di ff Reviewed date:07/15/2024 10:27:06 AM Interpretation: Performing Lab:[facility], [address] [place] [phone] Notes/Report: White Blood Count 3.9 4.8-10.8 X10*3/uL [...] Panel Reviewed date:07/15/2024 10:24:54 AM Interpretation: Performing Lab:[facility], [address] [place] [phone] Notes/Report: Sodium 139 135-145 mmol/L Potassium 3.9 [...] Culture Reviewed date:07/17/2024 01:58:27 PM Interpretation: Performing Lab:[facility], [address] [place] [address] Notes/Report: O:ESCCOL Escherichia coli Urine Culture Quant Urine Culture 50,000 to 100,000 cfu/mL Ampicillin >=32 Cefazolin (Urine) 4 Cefepime <=0.12 Ceftriaxone <=0.25 Ciprofloxacin <=0.06 Gentamicin <=1 Nitrofurantoin <=16 Trimethoprim/Sulfamethox azole <=20 SARS-CoV2/FLU/RSV Reviewed date:07/15/2024 10:24:32 AM Interpretation: Performing Lab:[facility], [address] [place] [phone] Notes/Report: Influenza A PCR NEGATIVE Negative Influenza [...] by authorized laboratories. Testing performed on the [employer] GeneXpert utilizing real-time RT-PCR. All SARS CoV2 and positive influenza A/B results are reported to [facility]. UA ClnCatch+Micro w/rflx Cul t Reviewed date:07/15/2024 03:39:56 PM Interpretation: Performing Lab:[address] [address] Notes/Report: [id number] Urine, Clean Catch Color Urine Dark Yellow Appearance Urine Cloudy PH 6.0 5.0-9.0 Glucose Urine UA Negative Negative mg/dL Urine Blood Negative Negative Specific Hillman - Urine >= 1.030 1.005-1.025 Urine Protein 100 (2+) Neg-Trace mg/dL Urine Ketones 15 Negative mg/dL Nitrite Urine Negative Negative Leukocyte Esterase Urine Moderate (2+) Negative RBC Urine 0-2 0-2 /HPF WBC Urine 6-10 0-5 /HPF Squamous Epithelial Cell Urine >20 0-2 /HPF Bacteria Urine 4+ None Seen Hyaline Casts Urine 3-5 0-2 /LPF Yeast Urine Present Complete Blood Count Auto Di ff Reviewed date:08/01/2024 12:36:05 PM Interpretation: Performing Lab:[address] [address] Notes/Report: White Blood Count 6.1 4.8-10.8 X10*3/uL [...] HCl 4 MG TAKE 1 TABLET BY [facility] DAILY NEEDED Orally Once a day [...] ONE TABLET BY MOUTH ONCE DAILY Active Mefbawwqyh-RBVI-Mqkmqmwx 50-325-40 MG TAKE ONE TABLET BY MOUTH [...] 03/01/2012 Administered Flu Vaccine Unknown 04/06/2013 Administered Molly Barreto gonzalo Flu Vaccine IM Intramuscular 02/21/2014 Administered PPSV23 (Pnemovax) IM Intramuscular 06/12/2014 Administered Fluarix Quadrivalent IM Intramuscular 01/15/2015 Admineddiee red Fluarix Quadrivalent IM Intramuscular 12/07/2015 Administe [...] Status W/U Status Risk Notes Problem Thrombocytopenia (874296879) Thrombocytopenia (D69.6) Active confirmed Problem 174788564 Neuropathy (G62.9) Active confirmed Problem 49297246 Lymphocytosis (D72.820) Active confirmed Problem 677075096 Irritable bowel syndrome with diarrhea (K58.0) Active confirmed Problem 508817813 Tubular adenoma (D36.9) Active confirmed Problem 11878356 Anxiety (F41.9) Active confirmed Problem 548735933 Chronic tension- type headache, not intractable (G44.229) Active confirmed Problem Cognitive communication disorder (126946399) Cognitive communication deficit (R41.841) Active confirmed Problem 0860004 Arthritis (M19.90) Active confirmed Problem 529763121 Lumbar disc dise ase (M51.9) Active confirmed Problem 782636549 Gastroesophageal reflux disease without esophagitis (K21.9) Active confirmed Problem 50685416 Essential hypert ension (I10) Active confirmed Problem 804650000 Acquired hypothyroidism (E03.9) Active confirmed Problem 71116554 Other iron defic iency anemia (D50.8) Active confirmed Problem 046817533 Acute systolic congestive heart failure (I50.21) Active confirmed Problem 98821016 Post menopausal problems (N95.9) Active confirmed Problem 012540173691173 Moderate persist ent asthma with acute exacerbation (J45.41) Active confirmed Problem 518089371 History of galls tones (Z87.19) Active confirmed Problem 51508918 Peptic ulcer (K27.9) Active confirmed Problem 318446555 Iron deficiency anemia due to chronic blood loss (D50.0) Active confirmed Problem 17373834 Dysthymia (F34.1) Active confirmed Problem 525737868 Panic attacks (F41.0) Active confirme d Problem 266379068 Migraine without aura and with status migrainosus, not intractable (G43.001) Active confirmed Problem 038051545 Vaginal bleeding (N93.9) Active confirmed Problem 4922121576238 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) Active confirmed Problem Ascending aorta dilatation (957608922) Ascending aorta dilatation (I77.810) Active confirmed Problem 52957516 Hypercholesterol emia (E78.00) Active confirmed Problem 171361061 BMI 36.0-36.9,ad ult (Z68.36) Active confirmed Problem 601485116 Intermittent atr ial fibrillation (I48.0) Active confirmed Problem 552367741 Cerebrovascular accident (CVA) due to embolism of left carotid artery (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) Active confirmed Problem 88702272 Sinusitis chroni c, frontal (J32.1) Active confirmed Problem Shoulder arthrit is (M19.019) Active confirmed Problem 59228439 Stasis dermatiti s of both legs (I87.2) Active confirmed Problem 318243334 Persistent atria l fibrillation (I48.19) Active confirmed Problem 203859945 Benign paroxysma l positional vertigo, unspecified laterality [...] Rai Fabian MD [address] [place] [address] [id number] 2024 Rai Fabian Acquired hypothyroid ism E03.9 ; Essential hypertension I10 ; Lymphocytosis D72.820 and Hypercholesterolemia E78.00 Rai Fabian MD [address] [place] [address] [id number] 08/01/2024 Rai Fabian Iron deficiency anem ia due to chronic blood loss D50.0 Rai Fabian MD [address] [place] [address] [id number] 10/02/2023 Rai Fabian Lumbar disc disease M51.9 and History of total left knee replacement Z96.652 Rai Fabian MD [address] [place] [address] [id number] 12/15/2023 Rai Fabian Acute non-recurrent maxillary sinusitis J01.00 Rai Fabian MD [address] [place] [address] [id number] 02/26/2024 Rai Fabian Acute non-recurrent frontal sinusitis J01.10 Rai Fabian MD [address] [place] [address] [id number] 03/29/2024 Rai Fabian Shortness of breath R06.02 Rai Fabian MD [address] [place] [address] [id number] 04/04/2024 Rai Fabian Acute systolic conge stive heart failure I50.21 Rai Fabian MD [address] [place] [address] [id number] 05/06/2024 Rai Fabian UTI (urinary tract infection) N39.0 ; Essential hypertension I10 ; Anxiety, generalized F41.1 ; Acquired hypothyroidism E03.9 ; Gastroesophageal reflux disease without esophagitis K21.9 ; Hypercholesterolemia E78.00 and Acute systolic congestive heart failure I50.21 Rai Fabian MD [address] [place] [address] [id number] 06/28/2024 Rai Fabian Anxiety F41.9 Rai Fabian MD [address] [place] [address] [id number] 07/12/2024 Rai Fabian COVID-19 U07.1 Rai Fabian MD [address] [place] [address] [id number] 07/25/2024 Rai Fabian COVID-19 U07.1 and Thrombocytopenia D69.6 Rai Fabian MD [address] [place] [address] [id number] 09/04/2023 Rai Fabian MD [address] [place] [address] [id number] 09/17/2023 Rai Fabian MD [address] [place] [address] [id number] 10/05/2023 Rai Fabian MD [address] [place] [address] [id number] 10/05/2023 Rai Fabian MD [address] [place] [address] [id number] 03/24/2024 Rai Fabian MD [address] [place] [address] [id number] 04/12/2024 Rai Fabian MD [address] [place] [address] [id number] 05/08/2024 Rai Fabian MD [address] [place] [address] [id number] 05/08/2024 Rai Fabian MD [address] [place] [address] [id number] 06/14/2024 Rai Fabian MD [address] [place] [address] [id number] 07/18/2024 Rai Fabian MD [address] [place], [place] [id number] 07/19/2024 Rai Fabian Assessments Encounter Date Diagnosis (ICD Code) Assessment Notes Treatment Notes Treatment Clinical Notes Section Notes 2024 Acquired hypothyroid ism (ICD-10 - E03.9) 2024 Essential hypertensi on (ICD-10 - I10) 08/01/2024 Iron deficiency anem ia due to chronic blood loss (ICD-10 - D50.0) 10/02/2023 Lumbar disc disease (ICD-10 - M51.9) going to [facility] for question 10/02/2023 History of total lef [...] much better. is thinking of traveling to [place]. should wait until she gets seen by [...] LAT 03/29/2024 Complete Blood Count Auto Diff Next Appt Details Provider Name:Rai trotter, 09/09/2024 01:45:00 PM, [address] [place] [address], [address], [phone], Provider Name:Rai trotter, 10/28/2024 07:45:00 AM, [address] [place] [address], [address], [phone], Provider Name:Rai trotter, 11/04/2024 02:00:00 PM, [address] [place] [address], [address], [phone], Provider Name:Rai trotter, 05/04/2025 07:15:00 AM, [address] [place] [address], [address], [phone], Provider Name:Rai trotter, 05/11/2025 02:30:00 PM, [address], [place], [place], [id number], Insurance Providers Payer Name Payer Address Payer Phone Subscriber Number Group Number Insured Name Patient Relationship to Insured Coverage Start Date Coverage End Date [employer] [address] [place] [address] [id number] Mandie Gonzalez Self - patient is the insured Medical (General) History Medical History History ICD Code hypertension peptic ulcer adenomatous polyp carpal tunnel colonoscopy 2007; colonoscop y done 12/07/[address] Taylor-no further testing indicated.07/14/22 [address]oscopy [address] no further colonoscopys. neg biopsy Surgical History Surgery Date(Month/Year) dropped bladder and mesh 2009
--- OUTSIDE RECORDS SUMMARY | 2024-08-05 20:02 | XMS_ITS ---
Author Organization [facility] Address [address] [place] [phone] Care Team Providers Care Candlemaking Laborer Name Role Phone Rai Fabian MD Primary Care Provider Travis Perez [phone] REASON FOR VISIT lomotil Medications Medication SIG (Take, Route, Fr equency, Duration) Notes Start Date End Date Status Lomotil 2.5-0.025 MG 1 or 2 Orally Every 6 hours as needed for diarrhea for 30 days 07/02/2023 Active Encounters Encounter Location Date Provider Diagnosis [facility] [address] [place] [phone] 07/01/2023 Travis Taylor Plan Of Treatment Medication Medication Name Sig Start Date Stop Date Notes Lomotil 2.5-0.025 MG 1 or 2 Orally Every 6 hours as needed for diarrhea for 30 days 07/02/2023 Progress Notes * JAKOB BECERRIL IDOB: [id number] (73 yo F)Acc No.[id number]:07/01/2023 Patient:?JAKOB BECERRIL I :1950???Age:73 Y???Sex:Female Address:[address] [facility], [place] [address] * Refills? Start Lomotil Tablet, 2.5-0.025 MG, Orally, 60, 1 or 2, Every 6 hours as needed for diarrhea, 30 days, Refills=5 * true * Date:? Generated for Sienna darby/Dash/Bennieitting on:?08/05/2024 08:02 PM EDT
--- OUTSIDE RECORDS SUMMARY | 2024-08-05 20:02 | XMS_ITS | Patient Health Record ---
Author Organization [facility] Address [address] [place] [address] Care Team Providers Care Veterinary Technology Instructor Name Role Phone Rai Fabian MD Primary Care Provider Travis Perez Unavailable [phone] Allergies No Known Allergies Reason For Referral No Information Medications Medication SIG (Take, Route, Frequency, Duration) Notes Start Date End Date Status Gabapentin 400 MG Oral for 90 Active Eliquis 5 MG Orally Active Verapamil HCl ER 120 MG TAKE 1 TABLET BY MOUTH EVERY DAY Oral for 90 Active Prempro 0.625-2.5 MG 1 tablet Orally Onc e a day Active Myrbetriq 25 MG Oral for 90 Ac tive Sngwadvrlx-QQED-Virmqkfh 50-325-40 MG Oral for 30 Active HYDROcodone-Acetaminophen [...] tablet Oral ly Once a day Active Lomotil 2.5-0.025 MG 1 or 2 Orally Every 4 to 6 hours if needed for diarrhea for 30 days 08/05/2024 Active Vancomycin HCl 250 MG 1 capsule [...] Problem Status W/U Status Risk Notes Problem 242982189 Encounter for screening for malignant neoplasm of colon (Z12.11) Active confirmed Problem 801818161 History of adenomatous polyp of colon (Z86.010) Active confirmed Problem Diverticular disease of colon (975372708) Diverticulosis of large intestine without perforation or abscess without bleeding (K57.30) Active confirmed Problem 169756690 Irritable bowel syndrome with diarrhea (K58.0) Active confirmed Problem Melena (9099721) Melena (K92.1) Active confirme d Problem Iron deficiency anemia (33223760) Iron deficiency anemia (D50.9) Active confirmed Problem Gastritis (2234713) Gastritis (K29.70) Active confirmed Problem 86903518 Iron deficiency anemia, unspecified iron deficiency anemia type (D50.9) Active confirmed Problem 61027632 Diarrhea, unspecified type (R19.7) Active confirmed Problem 73214407 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) Active confirmed Problem 3278346438048 Clostridium difficile diarrhea (A04.72) Active confirmed Problem 46600101 Diarrhea of presumed infectious origin (R19.7) Active confirmed Problem 675014616766093 History of Clostridioides difficile infection (Z86.19) Active confirmed Problem Acute diarrhea (318038742) Acute diarrhea (R19.7) Active confirmed Encounters Encounter Location Date Provider [facility] [address] [place] [phone] 08/04/2024 Travis Taylor Plan Of Treatment Pending Test Test Name [...] Date MEDICARE OF [place] [address] [facility] [place] [address] [phone] [id number] JAKOB BECERRIL Self - patient is the insured [employer] CLAIMS [address] [place] [address] [id number] JAKOB BECERRIL Self - patient is the insured Medical (General) History Medical History History ICD Code Stroke- August 2016--no residu al--[place] [facility] Eliquis--? for Afib or SVT at the time of the CVA Hypertension Urinary incontinence Seasonal allergies Denies ND,DM,Lung disease,renal disease Hyperlipidemia Arthritis Hypothyroidism EGD in [...]
--- OUTSIDE RECORDS SUMMARY | 2024-08-05 20:03 | XMS_ITS ---
Author Organization Rai Fabian MD Address [address] [place] [address] [phone] Support Name Relationship Address Phone Rai Fabian Caregiver [address] [facility] [address] [place] [address] [phone] Nicole Díaz [facility]giver [facility] [address] [place] [address] [phone] Raheel Morley Caregiver [address] [facility] [address] [address] [place] [address] [phone] Travis Taylor Caregiver [address] [facility] [address] [address] [place] [address] [phone] May Landis Caregiver [facility] [address] [place] [address] [phone] DOROTHY GONZALEZ Caregiver [address] [facility] [address] [place] [address] [phone] Lele Childress Caregiver 10 [facility] [address] [place] [address] [phone] BILL MEDINA Caregiver [facility] [address] [address] [place] [address] [phone] Judy Woods Caregiver [facility] [address] [place] [address] [phone] CAMILLE SINGER Caregiver [address] [facility] [address] [place] [address] [phone] ANILA BATES Caregiver [address] [place] [address] [phone] TRAVIS COFFEY Emergency Contact Unknown Mandie Gonzalez Guarantor Unknown [phone] Care Team Providers Care Plug Wirer Name Role Phone Rai Fabian Primary Care Provider REASON FOR VISIT week repeat CBC Encounters Encounter Location Date Provider Diagnosis Rai Fabian MD [address] [place] [address] [phone] 08/01/2024 Rai Fabian Iron deficiency anemia due to chronic blood loss D50.0 Assessments Encounter Date Diagnosis (ICD Code) Assessment Notes Treatment Notes Treatment Clinical Notes Section Notes 08/01/2024 Iron deficiency anemia due to chronic blood loss (ICD-10 - D50.0) Plan Of Treatment Pending Test Test Name Order Date Complete Blood Count Auto Diff Next Appt Details Provider Name:Rai trotter, 09/09/2024 01:45:00 PM, [address] [place] [address], [address], [phone], Provider Name:Rai trotter, 10/28/2024 07:45:00 AM, [address] [place] [address], [address], [phone], Provider Name:Rai trotter, 11/04/2024 02:00:00 PM, [address] [place] [address], [address], [phone], Provider Name:Rai trotter, 05/04/2025 07:15:00 AM, [address] [place] [address], [address], [phone], Provider Name:Rai trotter, 05/11/2025 02:30:00 PM, [address] [place] [address], [address], [phone], Progress Notes * Aaron GONZALEZOB: (74 yo F)Acc No.[id number]:08/01/2024 Progress Note Patient:?GONZALEZ Mandie Provider:?Rai Fabian MD :1950???Age:74 Y???Sex:Female D ate:08/01/2024 Address:[address] [place] [address], [place] [phone] Subjective: * Chief Complaints: * ???1. week repeat CBC. * Medical History:? Objective: * Vitals:? Assessment: * Assessment: 1.?Iron deficiency anemia du e to chronic blood loss - D50.0 (Primary)??? Plan: * Treatment: * Procedure Codes:?29917 VENIP UNCT, ROUTINE* * * The named appointment provid er may or may not be the originator of this progress note, and it is not deemed complete until electronically signed by the appointment provider. Sign off status: Pending * Provider:?Rai Fabian MD Date:?0 08/01/2024 Generated for Sienna darby/Dash/Bennieitting on:?08/05/2024 08:03 PM EDT
--- OUTSIDE RECORDS SUMMARY | 2024-08-05 20:03 | XMS_ITS ---
Author Organization [facility] Address [address] [place] [address] Care Team Providers Care Aluminum Boats Assembler Name Role Phone Rai Fabian MD Primary Care Provider Travis Perez [phone] REASON FOR VISIT refill lomotil Encounters Encounter Location Date Provider Diagnosis [facility] [address] [place] [address] 08/04/2024 Travis Taylor Plan Of Treatment No Information Progress Notes * JAKOB BECERRIL IDOB: [birth year] (74 yo F)Acc No.[id number]:08/04/2024 Patient:?JAKOB BECERRIL I :1950???Age:74 Y???Sex:Female Address:[address] [facility], [place] [address] * * Date:?
--- OUTSIDE RECORDS SUMMARY | 2024-08-05 20:03 | XMS_ITS ---
Author Organization Rai Fabian MD Address [address] [place] [address] [phone] Support Name Relationship Address Phone Rai Fabian Caregiver [facility] [address] [facility] [address] [place] [address] [phone] Nicole Díaz Caregiver [facility] [address] [place] [address] [phone] Raheel Morley Caregiver [facility] [address] [address] [place] [address] [phone] Travis Taylor Caregiver [facility] [address] [address] [place] [address] [phone] May Landis Caregiver [facility] [address] [facility] [address] [place] [address] [phone] DOROTHY GONZALEZ Caregiver [facility] [address] [place] [address] [phone] Lele Childress Caregiver [facility] [address] [place] [address] [phone] BILL MEDINA Caregiver [facility] [address] [address] [place] [address] [phone] Judy Woods Caregiver [facility] [address] [place] [address] [phone] CAMILLE SINGER Caregiver [address] [facility] [address] [place] [address] [phone] ANILA BATES Caregiver [address] [place] [address] [phone] TRAVIS COFFEY Emergency Contact Unknown Mandie Gonzalez Guarantor Unknown [phone] Care Team Providers Care Concrete Technician Name Role Phone RuiMariselan Primary Care Provider [phone] REASON FOR VISIT Trouble breathing Encounters Encounter Location Date Provider Diagnosis Rai Fabian MD [address] [place] [address] [address] [place] [phone] 07/19/2024 Rai Fabian Plan Of Treatment Next Appt Details Provider Name:Rai Colin ier, 09/09/2024 01:45:00 PM, [address] [place] [address], [address], [place], [phone], Provider Name:Rai Colin ier, 10/28/2024 07:45:00 AM, [address] [place] [address], [address], [place], [phone], Provider Name:Rai trotter, 11/04/2024 02:00:00 PM, [address] [place] [address], [address], [place], [phone], Provider Name:Rai Colin ier, 05/04/2025 07:15:00 AM, [address] [place] [address], [address], [place], [phone], Provider Name:Rai Colin ier, 05/11/2025 02:30:00 PM, [address] [place] [address], [address], [place], [phone], Progress Notes * Aaron GONZALEZOB: 9 (74 yo F)Acc No.[id number]:07/19/2024 Patient:?Mandie GONZALEZ :1950???Age:74 Y???Sex:Female Address:[address] [place] [address] [place], [place] [address] * true * Date:? Generated for Feliciai mehnaz/Dash/eTransmitting on:?08/05/2024 08:02 PM EDT
--- OUTSIDE RECORDS SUMMARY | 2024-08-05 20:03 | XMS_ITS ---
Author Organization [facility] Address [address] [place] [address] Care Team Providers Care Television Production Assistant Name Role Phone Rai Fabian MD Primary Care Provider Travis Perez [phone] Encounters Encounter Location Date Provider Diagnosis [facility] [address] [place] [address] 07/03/2023 Travis Taylor Plan Of Treatment No Information Progress Notes * JAKOB BECERRIL IDOB: [birth year] (73 yo F)Acc No.[id number]:07/03/2023 Patient:?JAKOB BECERRIL I :1950???Age:73 Y???Sex:Female Address:[address] [facility], [place] [address] * true * Date:? Generated for Feliciai mehnaz/Dash/eTransmitting on:?08/05/2024 08:02 PM EDT
--- OUTSIDE RECORDS SUMMARY | 2024-08-05 20:03 | XMS_ITS | Patient Health Record ---
Author [facility] Address [address] [facility] [place] [address] Care Team Providers Care Strategic Partner Development Manager Name Role Phone Rai Fabian MD Primary Care Provider Valente Mendoza Unavailable [phone] Allergies No Known Allergies Reason For Referral [...] Status Risk Notes Problem Acquired hallux valgus (34290670) Hallux valgus (acquired), left foot (M20.12) Active confirmed Problem Localized, primary osteoarthritis of the ankle and/or foot (804298130) Primary osteoarthrit is, right ankle and foot (M19.071) Active confirmed Problem Localized, primary osteoarthritis of the ankle and/or foot (558519800) Primary osteoarthrit is, left ankle and foot (M19.072) Active confirmed Problem Acquired hallux valgus (81100657) Hallux valgus (acquired), right foot (M20.11) Active confirmed Problem Acquired hammer toe of right foot (0347809867395519) Other hammer toe(s) (acquired), right foot (M20.41) Active confirmed Problem Acquired hammer toe of left foot (5479458151596952) Other hammer toe(s) (acquired), left foot (M20.42) Active confirmed Plan Of Treatment Pending Test Test Name Order Date X ray : Ankle, left 2V 02/12/2021 X ray : Foot, left 2V 06/25/2015 X ray : Foot, right 2V 06/25/2015 X ray : Foot, left 3V 02/12/2021 X ray : Foot, right 3V 04/28/2016 51126-ARGLNKG NAIL, 1-5 08/16/2014, J0702- INJECT or DRAIN, JOINT/BUR SA 09/27/2018, J0702- INJECT or DRAIN, JOINT/BUR SA 03/25/2019, J0702- INJECT or DRAIN, JOINT/BUR SA 02/12/2021, J0702- INJECT or DRAIN, JOINT/BUR SA 06/12/2021, J0702- INJECT or DRAIN, JOINT/BUR SA 10/03/2019, J0702- INJECT or DRAIN, JOINT/BUR SA 09/03/2020, J0702- INJECT or DRAIN, JOINT/BUR SA 12/07/2020, Q6628-PTHEY/INJECT, JOINT/BURSA 0 12/07/2020, I4494-NRWIM/INJECT, JOINT/BURSA 0 10/03/2019, F0004-VSKAW/INJECT, JOINT/BURSA 0 06/12/2021, J5723-WQNQQ/INJECT, JOINT/BURSA 0 03/25/2019, W9490-TGUUL/INJECT, JOINT/BURSA 0 09/27/2018, J0831-QSYLX/INJECT, JOINT/BURSA 0 12/01/2016, O0532-OUZLC/INJECT, JOINT/BURSA 1 04/18/201671155, H1400-COHWB/INJECT, JOINT/BURSA 0 04/08/201820937- Ganglion Cyst Injection/Aspiratio n 10/03/2019 93845, J0702- Neuroma/Injection 02/17/20 17 76118, J0702- Neuroma/Injection 08/06/19 16 67079, J0702- Neuroma/Injection 04/03/19 17 63638, J0702- Neuroma/Injection 07/16/19 17 15797, J0702- Neuroma/Injection 09/04/19 17 13405, J0702- Neuroma/Injection 12/02/19 17 Insurance Providers Payer Name Payer Address Payer Phone Subscriber Number Group Number Insured Name Patient Relationship to Insured Coverage Start Date Coverage End Date Medicare National [employer] [address] [place] [address] [id number] Mandie Gonzalez Self - patient is the insured Super Vitamin D [address] [place] [address] [id number] Mandie Gonzalez Self - patient is the insured Medical (General) History Medical History History ICD Code Arthritis Back,Hip,and Knee pain Chicken pox Measles Mumps Hypertension Thyroid disorder Surgical History Surgery Date(Month/Year) rotator cuff tear repair 09/2013 hand/wrist 04/2012 uterus surgery 09/2010 right foot - [facility] 04/2018 RFA Back 08/31/20 R shoulder replacement 11/06/2020 Hospitalization History Reason Date(Month/Year[place] [facility] [place] [facility] [place] UTI 1 week /Rehab 3weeks 2021 admitted to [facility] [place] DX- stroke - discharged 09/01/2016 08/28/2016
[2024-08-05 21:33] LABS: Basophils Percent Auto 0.3 % (0-2); Eosinophils Absolute Auto 0.1 X10*3/uL (0.0-0.4); Eosinophils Percent Auto 1.6 % (0-4); Hematocrit 35.1 % (37.0-47.0); Hemoglobin 11.6 g/dl (12.0-16.0); Imm Gran Abs Auto 0.02 X10*3/uL (0.00-0.03); Imm Gran Pct Auto 0.3 % (0.0-0.4); Lymphocytes Absolute Auto 1.1 X10*3/uL (1.2-4.9); Lymphocytes Percent Auto 18.5 % (20-40); MANUAL DIFF FLAG SCAN; Mean Corpuscular Hemoglobin 27.9 pg (27.0-33.0); Mean Corpuscular Volume 84.4 fL (80.0-98.0); Mean Platelet Volume 10.8 fL (9.4-12.3); Monocytes Absolute Auto 0.5 X10*3/uL (0.1-1.2); Monocytes Percent Auto 8.6 % (2-11); Neutrophils Absolute Auto 4.3 x10*3/uL (2.0-8.3); Neutrophils Percent Auto 70.7 % (45-73); PLT CLUMP 1; Red Blood Count 4.16 X10*6/uL (4.20-5.50); SCAN SMEAR FLAG 1
[2024-08-05 21:44] LABS: Alanine Aminotransferase 10 U/L (0-31); Albumin Level 3.4 g/dL (3.5-5.0); Alkaline Phosphatase 59 U/L (39-117); Anion Gap 17 (12-20); Aspartate Amino Transferase 27 U/L (5-31); Bilirubin Direct 0.2 mg/dL (0.0-0.5); Bilirubin Total 0.5 mg/dL (0.0-1.0); Blood Urea Nitrogen 25 mg/dL (9-16); Calcium 9.5 mg/dL (8.4-10.2); Carbon Dioxide 24 mmol/L (22-29); Chloride 101 mmol/L (96-108); Creatinine Clr Calc Pharmacy 43.5; Estimated Glomerular Filt Rate 46; Glucose Random 82 mg/dL (60-115); Potassium 4.4 mmol/L (3.3-5.1); Sodium 138 mmol/L (135-145); Total Protein 6.6 g/dL (6.5-8.0)
[2024-08-05 21:55] LABS: Platelet Count 134 X10*3/uL (160-400); SLIDE REVIEW VERIFIED; White Blood Count 6.2 X10*3/uL (4.8-10.8)
[2024-08-05 22:00] VITALS: BP 134/71; PULSE 96; RESP 24; TEMP 36.8; O2SAT 95
[2024-08-05 23:23] LABS: Appearance Urine Turbid; Color Urine Yellow; Glucose Urine UA Negative (Negative); Leukocyte Esterase Urine Large (3+) (Negative); Nitrite Urine Negative (Negative); PH 5.5 (5.0-9.0); Specific Gravity - Urine 1.015 (1.005-1.025); UMIC TRIGGER UACC YES; Urine Blood Large (3+) (Negative); Urine Ketones Trace mg/dL (Negative); Urine Protein 30 (1+) mg/dL (Neg-Trace)
[2024-08-05 23:45] LABS: Bacteria Urine 3+ (None Seen); UACC Culture Trigger YES; WBC Urine 0-5 /HPF (0-5)
[2024-08-06] VITALS (10 sets, daily range): BP systolic 127–153; BP diastolic 58–86; PULSE 82–114; RESP 16–25; TEMP 36.4–36.9; O2SAT 93–97
--- NOTE | 2024-08-06 00:16 | MHC.EDTECH ---
This pct assumed care of Patient at 2300 ,vitals taken ,Patient resting quietly in bed .
[2024-08-06] MEDS: cefuroxime axetiL 250 MG TABLET PO (00:26)
--- NOTE | 2024-08-06 01:16 | PC.NURSE ---
when d/c the pt, pt had two small amounts of diarrhea and lower abd pain, cleaned the pt up and attempted to assist her with getting dressed and into the wheelchair, pt is reporting that she is feeling weak and does not feel comfortable about going home at this time. dr barriga notified and dr barriga at bedside speaking with pt and the , new plan now to stay overnight for physical therapy evaluation
--- NOTE | 2024-08-06 01:21 | MHC.EDTECH ---
Patient had watery diarrhea times 3 care given ,vitals taken ,All safety measure in Place .
[2024-08-06] MEDS: Loperamide HCl 2 MG CAPSULE 4 MG PO (02:07)
[2024-08-06] MEDS: traMADoL HCL 50 MG TABLET PO (02:07)
--- NOTE | 2024-08-06 03:30 | PC.NURSE ---
attempted to do a med/rec with the pt but patient is not all that familiar with her meds
--- NOTE | 2024-08-06 04:26 | MHC.EDTECH ---
Patient was incontinent of diarrhea care given ,bedding change ,vitals taken .
--- NOTE | 2024-08-06 04:31 | PC.NURSE ---
pt has another episode of diarrhea with a small amount of blood tinged to it after the imodium, pain is sitll at 4/10, dr casey aware
[2024-08-06] MEDS: 0.9 % Sodium Chloride 1,000 ML 999 ML IV ×2 (04:51→11:40)
--- NOTE | 2024-08-06 09:15 | PC.NURSE ---
patient stool mucus/gelatinous orange and very frequent small amounts coming out. patient unable to control. stool sample attempted to be collected. Cdiff pending, GI panel noted to be recollect by lab, limited sample left to use.
--- NOTE | 2024-08-06 10:46 | PHA.MEDREC ---
Addendum entered by Teresa Florez [facility] 08/06/24 13:18: Reviewed by [facility] Original Note: Pharmacy Consult ? Medication Reconciliation Pharmacy has completed the medication reconciliation. Pt poor historian. Called patient's pharmacy [facility] to confirm meds. Per [facility], pt has not picked up gabapentin, metoprolol succ, lisinopril-HCTZ, Myrbetriq, Omeprazole, or verapamil in months, despite claim history showing recent fills. Leaving off of med rec since [facility] assured me that despite claim history showing recent fills, they have not filled the meds in a couple months (most dating back late last year).
[2024-08-06 11:07] LABS: CDiff Gene PCR NEGATIVE (Negative)
[2024-08-06] MEDS: Levothyroxine Sodium 50 MCG TABLET PO (11:15)
[2024-08-06] MEDS: Loperamide HCl 2 MG CAPSULE PO (11:15)
[2024-08-06 11:49] LABS: MANUAL DIFF FLAG NO
[2024-08-06 11:50] LABS: OBS Int Ctl Valid YES; OBS1 POSITIVE (NEGATIVE)
[2024-08-06 11:52] LABS: Venous Blood Gas Refer to POC result
[2024-08-06 11:52] LABS: Basophils Percent Auto 0.3 % (0-2); Eosinophils Absolute Auto 0.1 X10*3/uL (0.0-0.4); Eosinophils Percent Auto 1.2 % (0-4); Hematocrit 36.6 % (37.0-47.0); Hemoglobin 11.6 g/dl (12.0-16.0); Imm Gran Abs Auto 0.02 X10*3/uL (0.00-0.03); Imm Gran Pct Auto 0.3 % (0.0-0.4); Lymphocytes Absolute Auto 0.9 X10*3/uL (1.2-4.9); Lymphocytes Percent Auto 14.1 % (20-40); Mean Corpuscular HGB Conc 31.7 g/dl (31.0-35.0); Mean Corpuscular Hemoglobin 27.5 pg (27.0-33.0); Mean Corpuscular Volume 86.7 fL (80.0-98.0); Mean Platelet Volume 10.2 fL (9.4-12.3); Monocytes Absolute Auto 0.7 X10*3/uL (0.1-1.2); Monocytes Percent Auto 10.9 % (2-11); Neutrophils Absolute Auto 4.9 x10*3/uL (2.0-8.3); Neutrophils Percent Auto 73.2 % (45-73); Platelet Count 174 X10*3/uL (160-400); Red Blood Count 4.22 X10*6/uL (4.20-5.50); Red Cell Distribution Width 15.9 % (11.0-16.0); White Blood Count 6.7 X10*3/uL (4.8-10.8)
[2024-08-06 11:53] LABS: VBG HCO3 24 mmol/L (22-26); VBG pCO2 33 mmHg; VBG pH 7.46 (7.32-7.43); VBG pO2 48 mmHg
[2024-08-06 11:57] LABS: Appearance Urine Clear; Color Urine Yellow; Glucose Urine UA Negative (Negative); Leukocyte Esterase Urine Trace (Negative); Nitrite Urine Negative (Negative); PH 5.5 (5.0-9.0); Specific Gravity - Urine 1.015 (1.005-1.025); UMIC TRIGGER UACC YES; Urine Blood Trace (Negative); Urine Ketones 15 mg/dL (Negative); Urine Protein Trace mg/dL (Neg-Trace)
[2024-08-06 11:58] LABS: Ammonia 68 umol/L (13-55)
[2024-08-06 12:02] LABS: Bacteria Urine 4+ (None Seen); Hyaline Casts Urine 0-2 /LPF (0-2); RBC Urine 0-2 /HPF (0-2); Squamous Epithelial Cell Urine 0-2 /HPF (0-2); UACC Culture Trigger YES
[2024-08-06 12:06] LABS: Alanine Aminotransferase 9 U/L (0-31); Albumin Level 3.4 g/dL (3.5-5.0); Alkaline Phosphatase 60 U/L (39-117); Anion Gap 17 (12-20); Aspartate Amino Transferase 24 U/L (5-31); Bilirubin Total 0.5 mg/dL (0.0-1.0); Blood Urea Nitrogen 18 mg/dL (9-16); Calcium 9.4 mg/dL (8.4-10.2); Carbon Dioxide 24 mmol/L (22-29); Chloride 101 mmol/L (96-108); Creatinine Clr Calc Pharmacy 58.8; Estimated Glomerular Filt Rate > 60; Glucose Random 84 mg/dL (60-115); Lipase 7 U/L (8-78); Magnesium 1.9 mg/dL (1.6-2.6); Potassium 4.1 mmol/L (3.3-5.1); Sodium 138 mmol/L (135-145); Total Protein 6.5 g/dL (6.5-8.0)
[2024-08-06 12:07] LABS: Lactic Acid 2.3 mmol/L (0.5-2.0)
[2024-08-06 12:26] LABS: TSH reflex Free T4 1.76 uIU/mL (0.32-4.0)
[2024-08-06] MEDS: Piperacillin Sodium/Tazobactam 4.5 GM in 0.9 % Sodium Chloride 100 ML IV (12:42)
[2024-08-06] MEDS: iohexoL 350 MG/ML 100 ML INFUS..BTL IV (12:47)
--- NOTE | 2024-08-06 13:02 | ECG_ITS ---
Test Reason : TACHYCARDIA, AMS Blood Pressure : */* mmHG Vent. Rate : 103 BPM Atrial Rate : * BPM P-R Int : * ms QRS Dur : 82 ms QT Int : 352 ms P-R-T Axes : * -7 91 degrees QTcB Int : 461 ms Atrial fibrillation with rapid ventricular response with premature ventricular or aberrantly conducted complexes Nonspecific ST and T wave abnormality Abnormal ECG When compared with ECG of 14-Jul-2024 14:50, QT has shortened Referred By: Natasha Gan Electronically Signed By: MONTSE VARGAS MD
[2024-08-06 13:47] LABS: Reflex Lactate? Lactic Acid Added
[2024-08-06 15:33] LABS: ~Lactic Acid-LAB USE ONLY 1.5 mmol/L (0.5-2.0)
--- NOTE | 2024-08-06 16:33 | PM.IMHP ---
History of Present Illness Date of Service: 08/06/24 Chief Complaint: diarrhea and abdominal discomfort 74yo F with persistent atrial fibrillation on apixaban but not on any rate control agent, mild intermittent asthma, history of stroke, hypothyroidism, HTN, and OA who was recently admitted here for 1 day in late June for hypoxia due to Covid-19 infection. This time, she presents with 3 days of dysuria, lower abdominal discomfort, and mucus-filled diarrhea. She noticed 1 small spot of old blood in her stool. No nausea or vomiting. No fever. Appetite is not good. No sick contacts and no high-risk food exposures. No recent antibiotic usage. She was noted to have ovalles-colitis, more pronounced distally, on CT A/P. There was a tiny hyperdense area in the proximal sigmoid colon that could be incidental but possibly might represent a focus of active bleeding. Hb remained unchanged overnight at 11.6. She was given a dose of piperacillin-tazobactam. C. difficile PCR was negative. Urinalysis should pyuria and bacteruria; she was given 1 dose of PO cefuroxime. Lactate was 2.3 but improved to 1.5 after IV normal saline. NH3 was mildly elevated to 68. Unclear why this was checked, as she is not confused and does not have a history of liver disease. Review of Systems Review of Systems: Yes all other systems are reviewed and are negative [facility] Medical History Class 1 obesity Essential hypertension Persistent atrial fibrillation Primary osteoarthritis involving multiple joints Anxiety GERD (gastroesophageal reflux disease) Carpal tunnel syndrome Stroke Hypothyroidism Arthritis HTN (hypertension) Asthma Obesity Chronic pain Family History Father CVD (cardiovascular disease) Diabetes Mother CVD (cardiovascular disease) HTN (hypertension) Surgical History History of left shoulder replacement History of right shoulder replacement S/P panniculectomy Hx of cholecystectomy S/P foot surgery, right History of bladder surgery History of tonsillectomy Social History Household Members: Significant Other Housing: House Do you presently have visiting nurse or other home services: No Unable to assess alcohol history related to: Unknown Alcohol intake: never Patient Tobacco Use Status: Never used Tobacco Smoked in Last 30 Days: No e-Cigarette/Vaping Use: Never Used Advance Directives: Yes Advance Directives on File: Yes Advance Directives Date on File: 06/02/23 service: No Current occupational status: retired Meds Allergies Allergy/AdvReac Type Severity Reaction Status Date / Time No Known Allergies Allergy Mild N/A Verified 08/05/24 19:18 Active Medications: Current Medications Acetaminophen (Acetaminophen 325 Mg Tablet) 650 mg PO Q6H PRN PRN Reason: Pain, Mild 1-3,fever,headache Acetaminophen/Butalbital/Caffeine (Butalb/Acetamin/Caff 50/325/40 Tablet) 1 tab PO Q6H PRN PRN Reason: Migraine Headache Hydrocodone Bitart/Acetaminophen (Hydrocodone Bit/Acetam 5/325 Tablet) 1 tab PO BID PRN PRN Reason: pain, svere Albuterol Sulfate (Albuterol Sulfate 90 Mcg 8 Gm Inhaler) 2 puff INHALE Q6H PRN PRN Reason: Shortness Of Breath Or Wheezing Apixaban (Apixaban 5 Mg Tablet) 5 mg PO BID ON LICENSE OF [facility] Atorvastatin Calcium (Atorvastatin Calcium 40 Mg Tablet) 40 mg PO BEDTIME ON LICENSE OF [facility] Calcium Carbonate (Calcium Carbonate 750 Mg Tab.Chew) 750 mg PO Q4H PRN PRN Reason: Heartburn Escitalopram Oxalate (Escitalopram Oxalate 10 Mg Tablet) 10 mg PO DAILY ON LICENSE OF [facility] Levothyroxine Sodium (Levothyroxine Sodium 50 Mcg Tablet) 50 mcg PO DAILY@0600 ON LICENSE OF [facility] Last Admin: 08/06/24 11:15 Dose: 50 mcg Magnesium Hydroxide (Milk Of Magnesia 30 Ml Oral.Susp) 30 ml PO DAILY PRN PRN Reason: Constipation Melatonin (Melatonin 3 Mg Tablet) 6 mg PO BEDTIME PRN PRN Reason: Insomnia Ondansetron HCl (Ondansetron Hcl 4 Mg/2 Ml Vial) 4 mg IVPUSH Q8H PRN PRN Reason: Nausea and Vomiting Sodium Chloride (0.9 % Sodium Chloride Flush 3 Ml Syringe) 3 ml IVFLUSH QSHIFT ON LICENSE OF [facility] Home Medications ?Medication ?Instructions ?Recorded ?Confirmed ?Last Taken ?Type apixaban 5 mg tablet (Eliquis) 5 mg PO BID 03/27/20 08/06/24 05/28/23 History atorvastatin 40 mg tablet 40 mg PO BEDTIME 03/27/20 08/06/24 05/28/23 History conj estrogen-medroxyprogesterone 1 tab PO DAILY 03/27/20 08/06/24 05/28/23 History 0.625 mg-2.5 mg tablet (Prempro) ricdguocmr-tyqsfqazkvhca-nyoumtun 1 tab PO Q6H PRN Migraine Headache 05/13/21 08/06/24 05/18/21 History 50 mg-325 mg-40 mg tablet hydrocodone 5 mg-acetaminophen 325 1 tab PO BID PRN Pain (Scale Score 05/13/21 08/06/24 05/18/21 History mg tablet 4-6) albuterol sulfate 90 mcg/actuation 2 puff inhalation Q6H PRN 05/29/23 08/06/24 05/28/23 History aerosol inhaler Shortness Of Breath Or Wheezing levothyroxine 50 mcg tablet 50 mcg PO DAILY@0600 05/29/23 08/06/24 05/28/23 History escitalopram oxalate 10 mg tablet 10 mg PO DAILY 07/15/24 08/06/24 Unknown History furosemide 40 mg tablet 40 mg PO DAILY 07/15/24 08/06/24 Unknown History Physical Exam Vital Signs and Narrative: Vital Signs: Last Vital Signs Temp 98.4 F 08/06/24 11:38 Pulse 96 08/06/24 14:54 Resp 24 H 08/06/24 14:54 BP 153/85 H 08/06/24 14:54 Pulse Ox 95 08/06/24 14:54 O2 Del Method Room Air 08/06/24 14:54 BMI result Gen: in no acute distress HEENT: sclera anicteric, moist mucus membranes Neck: supple Lungs: clear to auscultation bilaterally Heart: irregular, no murmurs Abd: soft, mild bilateral lower quadrant tenderness without rebound or guarding, non-distended : no CVA tenderness Ext: no edema Skin: warm/well-perfused Neuro: alert and oriented x3, no focal findings, no asterixis Psych: appropriate affect Results Labs 08/06/24 11:44 08/06/24 11:44 Labs: Laboratory Results - last 24 hr 08/05/24 08/05/24 08/06/24 21:25 23:11 09: MCV 84.4 MCH 27.9 MCHC 33.0 RDW 16.0 Plt Count 134 L D MPV 10.8 Immature Gran % (Auto) 0.3 Neut % (Auto) 70.7 Lymph % (Auto) 18.5 L Thomas % (Auto) 8.6 Eos % (Auto) 1.6 Baso % (Auto) 0.3 Lymph # (Auto) 1.1 L Thomas # (Auto) 0.5 Eos # (Auto) 0.1 Baso # (Auto) 0.0 Abs Immat Gran (auto) 0.02 Absolute Neuts (auto) 4.3 Absolute Nucleated RBC 0.000 Nucleated RBC % (auto) 0.0 Smear Tech's Comments VERIFIED VBG pH VBG pCO2 VBG pO2 VBG HCO3 VBG O2 Saturation VBG Base Excess Anion Gap 17 Estim Creat Clear Calc 43.5 Estimated GFR 46 Random Glucose 82 Lactic Acid Lactic Acid F/U @ 2Hr Calcium 9.5 Magnesium Total Bilirubin 0.5 Direct Bilirubin 0.2 AST 27 ALT 10 Alkaline Phosphatase 59 Ammonia Total Protein 6.6 Albumin 3.4 L Lipase TSH Urine Color Yellow Urine Appearance Turbid Urine pH 5.5 Ur Specific [place] 1.015 Urine Protein 30 (1+) H Urine Glucose (UA) Negative Urine Ketones Trace Urine Blood Large (3+) H Urine Nitrite Negative Ur Leukocyte Esterase Large (3+) H Urine RBC 3-5 H Urine WBC 0-5 Ur Squamous Epith Cells 6-10 Urine Bacteria 3+ Hyaline Casts 3-5 Stool Occult Blood C. difficile Tox B Gene NEGATIVE 08/06/24 08/06/24 08/06/24 11:40 11:44 11:49 MCV 86.7 MCH 27.5 MCHC 31.7 RDW 15.9 Plt Count 174 D MPV 10.2 Immature Gran % (Auto) 0.3 Neut % (Auto) 73.2 H Lymph % (Auto) 14.1 L Thomas % (Auto) 10.9 Eos % (Auto) 1.2 Baso % (Auto) 0.3 Lymph # (Auto) 0.9 L [place] # (Auto) 0.7 Eos # (Auto) 0.1 Baso # (Auto) 0.0 Abs Immat Gran (auto) 0.02 Absolute Neuts (auto) 4.9 Absolute Nucleated RBC 0.000 Nucleated RBC % (auto) 0.0 Smear Tech's Comments VBG pH 7.46 H VBG pCO2 33 VBG pO2 48 VBG HCO3 24 VBG O2 Saturation 79.0 VBG Base Excess 1.0 Anion Gap 17 Estim Creat Clear Calc 58.8 Estimated GFR > 60 Random Glucose 84 Lactic Acid 2.3 H* Lactic Acid F/U @ 2Hr Calcium 9.4 Magnesium 1.9 Total Bilirubin 0.5 Direct Bilirubin AST 24 ALT 9 Alkaline Phosphatase 60 Ammonia 68 H Total Protein 6.5 Albumin 3.4 L Lipase 7 L TSH 1.76 Urine Color Yellow Urine Appearance Clear Urine pH 5.5 Ur Specific [place] 1.015 Urine Protein Trace Urine Glucose (UA) Negative Urine Ketones 15 Urine Blood Trace H Urine Nitrite Negative Ur Leukocyte Esterase Trace H Urine RBC 0-2 Urine WBC 6-10 H Ur Squamous Epith Cells 0-2 Urine Bacteria 4+ Hyaline Casts 0-2 Stool Occult Blood POSITIVE C. difficile Tox B Gene 08/06/24 15:08 MCV MCH MCHC RDW Plt Count MPV Immature Gran % (Auto) Neut % (Auto) Lymph % (Auto) [place] % (Auto) Eos % (Auto) Baso % (Auto) Lymph # (Auto) Thomas # (Auto) Eos # (Auto) Baso # (Auto) Abs Immat Gran (auto) Absolute Neuts (auto) Absolute Nucleated RBC Nucleated RBC % (auto) Smear Tech's Comments VBG pH VBG pCO2 VBG pO2 VBG HCO3 VBG O2 Saturation VBG Base Excess Anion Gap Estim Creat Clear Calc Estimated GFR Random Glucose Lactic Acid Lactic Acid F/U @ 2Hr 1.5 Calcium Magnesium Total Bilirubin Direct Bilirubin AST ALT Alkaline Phosphatase Ammonia Total Protein Albumin Lipase TSH Urine Color Urine Appearance Urine pH Ur Specific [place] Urine Protein Urine Glucose (UA) Urine Ketones Urine Blood Urine Nitrite Ur Leukocyte Esterase Urine RBC Urine WBC Ur Squamous Epith Cells Urine Bacteria Hyaline Casts Stool Occult Blood C. difficile Tox B Gene Assessment and Plan (1) Colitis: Status: Acute Plan 74yo F with persistent atrial fibrillation on apixaban but not on any rate control agent, mild intermittent asthma, history of stroke, hypothyroidism, HTN, and OA presenting with 3 days of dysuria, abdominal discomfort, and diarrhea with question of minor hematochezia; found to have ovalles-colitis, UTI, and lactic acidosis. acute pancolitis - admit to M/S, follow GI panel, give piperacillin-tazobactam, follow GI panel + blood cultures; GI consultation UTI - piperacillin-tazobactam as above, follow urine + blood cultures question of hematochezia - H+H stable; monitor while on apixaban; GI consultation acute lactic acidosis - due to dehydration, not sepsis; resolved after IV fluids elevated ammonia - due to infection, not liver disease; recheck in AM; no asterixis or disorientation noted persistent atrial fibrillation - resume apixaban with H+H monitoring; not on rate control agents at this point but if needed will start metoprolol or diltiazem or verapamil HLD - atorvastatin hypothyroidism - continue LT4 anxiety - escitalopram mild intermittent asthma - prn albuterol VTE ppx - apixaban dispo - TBD code status - full I anticipate that the patient will stay at least 2 midnights as an inpatient in the hospital due to the above reasons. It is neither reasonable nor safe to care for them in a less acute setting. Quality Stroke Does the patient have a stroke diagnosis?: No VTE Prior VTE?: No VTE Risk Level:: Medical - moderate - high VTE Device Contraindication: N/A - Device Ordered VTE Drug Contraindication: N/A - Med Ordered
[2024-08-06] MEDS: Piperacillin Sodium/Tazobactam 3.375 GM in 0.9 % Sodium Chloride 50 ML IV (19:21)
--- NOTE | 2024-08-06 22:30 | PC.NURSE ---
found to be retaining 619 mL. succesfully straight cath'd clear yellow urine. MD Wade aware. post void scan showed 20 mL.
[2024-08-06] MEDS: Atorvastatin Calcium 40 MG TABLET PO (23:07)
[2024-08-06] MEDS: Apixaban 5 MG TABLET PO (23:07)
[2024-08-07 01:51] VITALS: BMI 29.8
[2024-08-07 02:04] VITALS: BP 133/78; PULSE 96; RESP 18; TEMP 36.5; O2SAT 96
[2024-08-07] MEDS: Piperacillin Sodium/Tazobactam 3.375 GM in 0.9 % Sodium Chloride 50 ML IV ×4 (02:06→20:11)
[2024-08-07] MEDS: Levothyroxine Sodium 50 MCG TABLET PO (05:07)
[2024-08-07 06:15] LABS: Hematocrit 34.3 % (37.0-47.0); Hemoglobin 10.9 g/dl (12.0-16.0); Mean Corpuscular HGB Conc 31.8 g/dl (31.0-35.0); Mean Corpuscular Hemoglobin 26.9 pg (27.0-33.0); Mean Corpuscular Volume 84.7 fL (80.0-98.0); Platelet Count 170 X10*3/uL (160-400); Red Blood Count 4.05 X10*6/uL (4.20-5.50); Red Cell Distribution Width 15.9 % (11.0-16.0); White Blood Count 5.3 X10*3/uL (4.8-10.8)
[2024-08-07 06:21] LABS: Ammonia 30 umol/L (13-55)
[2024-08-07 06:34] LABS: Anion Gap 16 (12-20); Blood Urea Nitrogen 12 mg/dL (9-16); Calcium 8.9 mg/dL (8.4-10.2); Carbon Dioxide 24 mmol/L (22-29); Chloride 101 mmol/L (96-108); Creatinine Clr Calc Pharmacy 63.8; Estimated Glomerular Filt Rate > 60; Glucose Random 79 mg/dL (60-115); Potassium 3.7 mmol/L (3.3-5.1); Sodium 137 mmol/L (135-145)
[2024-08-07 07:25] LABS: C Reactive Protein 6.36 mg/dL (< or = 0.50)
[2024-08-07 07:47] VITALS: BP 143/85; PULSE 102; RESP 16; TEMP 36.4; O2SAT 96
[2024-08-07] MEDS: 0.9 % Sodium Chloride Flush 3 ML SYRINGE IVFLUSH ×2 (08:14→14:53)
[2024-08-07] MEDS: Escitalopram Oxalate 10 MG TABLET PO (08:17)
[2024-08-07] MEDS: Apixaban 5 MG TABLET PO ×2 (08:17→20:05)
--- NOTE | 2024-08-07 09:43 | HO.PM.IMPN ---
Subjective Subjective Date of Service: 08/07/24 Interval History: diarrhea improving still c/o lower abd pain dysuria resolved no further hematochezia Review of Systems Review of Systems: Yes all other systems are reviewed and are negative Physical Exam Vital Signs: Vital Signs: Last Vital Signs Temp 97.5 F 08/07/24 07:47 Pulse 102 H 08/07/24 07:47 Resp 16 08/07/24 07:47 BP 143/85 H 08/07/24 07:47 Pulse Ox 96 08/07/24 07:47 O2 Del Method Room Air 08/07/24 07:47 BMI result Body Mass Index 29.8 Gen: in no acute distress HEENT: sclera anicteric, moist mucus membranes Neck: supple Lungs: clear to auscultation bilaterally Heart: irregular, no murmurs Abd: soft, bilateral lower quadrant tenderness without rebound, non-distended Ext: no edema Skin: warm/well-perfused Neuro: alert and oriented x3, no focal findings Psych: appropriate affect Objective Data Active Medications Acetaminophen (Acetaminophen 325 Mg Tablet) 650 mg PO Q6H PRN PRN Reason: Pain, Mild 1-3,fever,headache Acetaminophen/Butalbital/Caffeine (Butalb/Acetamin/Caff 50/325/40 Tablet) 1 tab PO Q6H PRN PRN Reason: Migraine Headache Hydrocodone Bitart/Acetaminophen (Hydrocodone Bit/Acetam 5/325 Tablet) 1 tab PO BID PRN PRN Reason: pain, svere Albuterol Sulfate (Albuterol Sulfate 90 Mcg 8 Gm Inhaler) 2 puff INHALE Q6H PRN PRN Reason: Shortness Of Breath Or Wheezing Apixaban (Apixaban 5 Mg Tablet) 5 mg PO BID [facility] Last Admin: 08/07/24 08:17 Dose: 5 mg Documented By: GERRY Atorvastatin Calcium (Atorvastatin Calcium 40 Mg Tablet) 40 mg PO BEDTIME [facility] Last Admin: 08/06/24 23:07 Dose: 40 mg Documented By: TARA Calcium Carbonate (Calcium Carbonate 750 Mg Tab.Chew) 750 mg PO Q4H PRN PRN Reason: Heartburn Escitalopram Oxalate (Escitalopram Oxalate 10 Mg Tablet) 10 mg PO DAILY [facility] Last Admin: 08/07/24 08:17 Dose: 10 mg Documented By: GERRY Piperacillin Sod/Tazobactam (Sod 3.375 gm/ Sodium Chloride) 50 mls @ 100 mls/hr IV Q6H [facility] Last Infusion: 08/07/24 08:55 Dose: Infused Documented By: GERRY Levothyroxine Sodium (Levothyroxine Sodium 50 Mcg Tablet) 50 mcg PO DAILY@0600 [facility] Last Admin: 08/07/24 05:07 Dose: 50 mcg Documented By: RAHEL Magnesium Hydroxide (Milk Of Magnesia 30 Ml Oral.Susp) 30 ml PO DAILY PRN PRN Reason: Constipation Melatonin (Melatonin 3 Mg Tablet) 6 mg PO BEDTIME PRN PRN Reason: Insomnia Ondansetron HCl (Ondansetron Hcl 4 Mg/2 Ml Vial) 4 mg IVPUSH Q8H PRN PRN Reason: Nausea and Vomiting Sodium Chloride (0.9 % Sodium Chloride Flush 3 Ml Syringe) 3 ml IVFLUSH QSHIFT [facility] Last Admin: 08/07/24 08:14 Dose: 3 ml Documented By: GERRY Labs 08/07/24 05:58 08/07/24 05:57 Labs: Laboratory Results - last 24 hr 08/06/24 08/06/24 08/06/24 09:25 11:40 11:44 MCV 86.7 MCH 27.5 MCHC 31.7 RDW 15.9 Plt Count 174 D MPV 10.2 Immature Gran % (Auto) 0.3 Neut % (Auto) 73.2 H Lymph % (Auto) 14.1 L [place] % (Auto) 10.9 Eos % (Auto) 1.2 Baso % (Auto) 0.3 Lymph # (Auto) 0.9 L [place] # (Auto) 0.7 Eos # (Auto) 0.1 Baso # (Auto) 0.0 Abs Immat Gran (auto) 0.02 Absolute Neuts (auto) 4.9 Absolute Nucleated RBC 0.000 Nucleated RBC % (auto) 0.0 VBG pH VBG pCO2 VBG pO2 VBG HCO3 VBG O2 Saturation VBG Base Excess Anion Gap 17 Estim Creat Clear Calc 58.8 Estimated GFR > 60 Random Glucose 84 Lactic Acid 2.3 H* Lactic Acid F/U @ 2Hr Calcium 9.4 Magnesium 1.9 Total Bilirubin 0.5 AST 24 ALT 9 Alkaline Phosphatase 60 Ammonia 68 H C-Reactive Protein Total Protein 6.5 Albumin 3.4 L Lipase 7 L TSH 1.76 Urine Color Yellow Urine Appearance Clear Urine pH 5.5 Ur Specific [place] 1.015 Urine Protein Trace Urine Glucose (UA) Negative Urine Ketones 15 Urine Blood Trace H Urine Nitrite Negative Ur Leukocyte Esterase Trace H Urine RBC 0-2 Urine WBC 6-10 H Ur Squamous Epith Cells 0-2 Urine Bacteria 4+ Hyaline Casts 0-2 Stool Occult Blood POSITIVE C. difficile Tox B Gene NEGATIVE 08/06/24 08/06/24 08/07/24 11:49 15:08 05:57 MCV MCH MCHC RDW Plt Count MPV Immature Gran % (Auto) Neut % (Auto) Lymph % (Auto) [place] % (Auto) Eos % (Auto) Baso % (Auto) Lymph # (Auto) [place] # (Auto) Eos # (Auto) Baso # (Auto) Abs Immat Gran (auto) Absolute Neuts (auto) Absolute Nucleated RBC Nucleated RBC % (auto) VBG pH 7.46 H VBG pCO2 33 VBG pO2 48 VBG HCO3 24 VBG O2 Saturation 79.0 VBG Base Excess 1.0 Anion Gap 16 Estim Creat Clear Calc 63.8 Estimated GFR > 60 Random Glucose 79 Lactic Acid Lactic Acid F/U @ 2Hr 1.5 Calcium 8.9 Magnesium Total Bilirubin AST ALT Alkaline Phosphatase Ammonia 30 C-Reactive Protein 6.36 H Total Protein Albumin Lipase TSH Urine Color Urine Appearance Urine pH Ur Specific [place] Urine Protein Urine Glucose (UA) Urine Ketones Urine Blood Urine Nitrite Ur Leukocyte Esterase Urine RBC Urine WBC Ur Squamous Epith Cells Urine Bacteria Hyaline Casts Stool Occult Blood C. difficile Tox B Gene 08/07/24 05:58 MCV 84.7 MCH 26.9 L MCHC 31.8 RDW 15.9 Plt Count 170 MPV 10.0 Immature Gran % (Auto) Neut % (Auto) Lymph % (Auto) [place] % (Auto) Eos % (Auto) Baso % (Auto) Lymph # (Auto) [place] # (Auto) Eos # (Auto) Baso # (Auto) Abs Immat Gran (auto) Absolute Neuts (auto) Absolute Nucleated RBC 0.000 Nucleated RBC % (auto) 0.0 VBG pH VBG pCO2 VBG pO2 VBG HCO3 VBG O2 Saturation VBG Base Excess Anion Gap Estim Creat Clear Calc Estimated GFR Random Glucose Lactic Acid Lactic Acid F/U @ 2Hr Calcium Magnesium Total Bilirubin AST ALT Alkaline Phosphatase Ammonia C-Reactive Protein Total Protein Albumin Lipase TSH Urine Color Urine Appearance Urine pH Ur Specific [place] Urine Protein Urine Glucose (UA) Urine Ketones Urine Blood Urine Nitrite Ur Leukocyte Esterase Urine RBC Urine WBC Ur Squamous Epith Cells Urine Bacteria Hyaline Casts Stool Occult Blood C. difficile Tox B Gene Microbiology Microbiology Results: Microbiology 08/06/24 Unknown Urine Culture - Preliminary Urine clean catch - Clean Catch Midstream Gram negative alise 08/05/24 Unknown Urine Culture - Final Urine clean catch - Clean Catch Midstream 08/06/24 11:58 Blood Culture - Preliminary Blood - Venous Prelim: GPR Gram Stain only Assessment and Plan (1) Acute UTI: Status: Resolved Plan d2 74yo F with persistent atrial fibrillation on apixaban but not on any rate control agent, mild intermittent asthma, history of stroke, hypothyroidism, HTN, and OA presenting with 3 days of dysuria, abdominal discomfort, and diarrhea with question of minor hematochezia found to have ovalles-colitis, UTI, and lactic acidosis. acute pancolitis - 08/06- piperacillin-tazobactam, GI panel pending, GI consultation pending UTI - 08/06- piperacillin-tazobactam, follow urine + blood cultures. Urine growing GNRs. Blood growing GPRs which is probably a contaminant. Awaiting speciations/susceptibilities. question of hematochezia - H+H stable; monitor while on apixaban; GI consultation pending acute lactic acidosis - due to dehydration, not sepsis; resolved after IV fluids elevated ammonia - due to infection, not liver disease; resolved persistent atrial fibrillation - resume apixaban with H+H monitoring; not on rate control agents at this point but if needed will start metoprolol or diltiazem or verapamil; will place on telemetry HLD - atorvastatin hypothyroidism - continue LT4 anxiety - escitalopram mild intermittent asthma - prn albuterol VTE ppx - apixaban dispo - anticipate home once colitis improves In my clinical judgment, the patient requires continued inpatient hospitalization for the following reasons: IV ABX Total time managing care of this patient today: 35 minutes. Quality Stroke Does the patient have a stroke diagnosis?: No VTE Prior VTE?: No VTE Risk Level:: Medical - moderate - high VTE Device Contraindication: N/A - Device Ordered VTE Drug Contraindication: N/A - Med Ordered
[2024-08-07] MEDS: Acetaminophen 325 MG TABLET 650 MG PO (10:31)
--- NOTE | 2024-08-07 13:16 | CONS_ITS ---
DATE OF SERVICE: 08/07/2024 REFERRING PHYSICIAN: Dr. Bullock REASON FOR CONSULTATION: Colitis and Hemoccult-positive stools. HISTORY OF PRESENT ILLNESS: The patient is a pleasant 74-year-old woman who was admitted to the hospital after presenting to the emergency room on August 05 with complaints of weakness, dysuria, and hematuria. There was lower abdominal discomfort and diarrhea with mucus that was occasional blood-tinged as well. She did not have significant rectal bleeding. She is on Eliquis for a CVA. Evaluation in the emergency room was undertaken and is reviewed. Imaging studies are consistent with colitis. She reports improvement in her diarrheal symptoms since admission. Stool testing has been ordered, and so far, no infectious etiology has been identified. The CT scan did question a small focus of hyperdensity in the proximal sigmoid colon, incidental versus focus of active bleeding. However, the patient has not had any significant bleeding since admission, and her hematocrit has remained stable. She has not required a blood transfusion. Today, she states she feels better than on her day of admission, but has some nausea. She is tolerating her diet. PAST MEDICAL HISTORY: 1. Colonoscopy and upper endoscopy in June 2022 for iron-deficiency anemia. No active ulceration or GI lesions identified. 2. CVA. 3. Atrial fibrillation. 4. Asthma. 5. Hypothyroidism. 6. Hypertension. 7. Osteoarthritis. 8. Gastroesophageal reflux disease. 9. Elevated body mass index. CURRENT MEDICATIONS: Her current medication list is reviewed in the chart. ALLERGIES: THERE ARE NONE REPORTED. PAST SURGICAL HISTORY: Includes shoulder surgery, panniculectomy, cholecystectomy, foot surgery, bladder surgery, and tonsillectomy. FAMILY HISTORY: This is reviewed and is noncontributory. SOCIAL HISTORY: There is no current tobacco, alcohol, or substance abuse. REVIEW OF SYSTEMS: SKIN: No pruritus. HEENT: Negative. CARDIOPULMONARY: She denies shortness of breath or chest pain. GASTROINTESTINAL: As above including nausea. GENITOURINARY: Negative. NEUROPSYCHIATRIC: Negative. PHYSICAL EXAMINATION: GENERAL: Shows a pleasant female, lying comfortably in bed. VITAL SIGNS: Reviewed in the electronic medical record and are stable. SKIN: Anicteric. HEENT: Shows no scleral icterus. NECK: Without lymphadenopathy or thyromegaly. LUNGS: Clear. HEART: Shows a regular rate and rhythm. S1, S2. No murmur. ABDOMEN: Soft without focal masses or tenderness. Bowel sounds are present. No organomegaly is noted. EXTREMITIES: Without edema. LABORATORY DATA AND IMAGING STUDIES: Reviewed. IMPRESSION: Colitis with Hemoccult-positive stools. She does not have any active GI bleeding at this time. Stool tests are pending. Her presentation appears most consistent with an acute infectious colitis/enteritis. I agree with treating her with antibiotics for now, and if her stool studies are negative, these can be discontinued. I do not think she needs colonoscopy at this time. Thanks for asking me to see her. I will follow her in the hospital with you. MD BRYON Hopkins/SIENNA / [phone]
[2024-08-07 15:14] VITALS: BP 157/74; PULSE 91; RESP 16; TEMP 36.4; O2SAT 93
--- NOTE | 2024-08-07 16:13 | MHC.CM.PN ---
PT SLEEPING ON APPROACH, CM MET WITH AT BEDSIDE HE CONFIRMS IT IS JUST HIMSELF AND THE PT AT HOME THEY HAD [employer] [facility] FROM [facility], BUT HAVE BEEN WAITING FOR A NEW PERSON TO BE ASSIGNED FOR SOME TIME PT USES A WALKER TO AMBULATE HCP ON FILE PCP: BOBBI HYDE IMM DELIVERED DCP: HOME VIA FAMILY TRANSPORT
[2024-08-07 19:43] VITALS: BP 154/91; PULSE 105; RESP 18; TEMP 36.3; O2SAT 96
[2024-08-07] MEDS: Atorvastatin Calcium 40 MG TABLET PO (20:05)
[2024-08-08] MEDS: Acetaminophen 325 MG TABLET 650 MG PO (00:09)
[2024-08-08] MEDS: Piperacillin Sodium/Tazobactam 3.375 GM in 0.9 % Sodium Chloride 50 ML IV ×4 (01:50→20:50)
[2024-08-08] MEDS: Butalb/Acetamin/Caff 50/325/40 TABLET 1 TAB PO ×2 (01:52→23:44)
[2024-08-08 03:42] VITALS: BP 159/80; PULSE 83; RESP 18; TEMP 36.4; O2SAT 95
[2024-08-08 05:45] LABS: Hematocrit 33.1 % (37.0-47.0); Hemoglobin 10.7 g/dl (12.0-16.0)
[2024-08-08] MEDS: Levothyroxine Sodium 50 MCG TABLET PO (06:17)
[2024-08-08 08:00] VITALS: BP 143/92; PULSE 93; RESP 16; TEMP 36.3; O2SAT 93
[2024-08-08] MEDS: Apixaban 5 MG TABLET PO ×2 (08:01→20:44)
[2024-08-08] MEDS: Escitalopram Oxalate 10 MG TABLET PO (08:01)
[2024-08-08] MEDS: 0.9 % Sodium Chloride Flush 3 ML SYRINGE IVFLUSH ×3 (08:05→20:46)
[2024-08-08 12:39] LABS: Adenovirus F 40/41 Not Detected (Not Detect.); Astrovirus Not Detected (Not Detect.); Campylobacter Not Detected (Not Detect.); Cryptosporidium Not Detected (Not Detect.); Cyclospora cayetanensis Not Detected (Not Detect.); E. coli EAEC Not Detected (Not Detect.); E. coli EPEC Not Detected (Not Detect.); E. coli ETEC Not Detected (Not Detect.); E. coli STEC Not Detected (Not Detect.); Entamoeba histolytica Not Detected (Not Detect.); Giardia lamblia Not Detected (Not Detect.); Norovirus GI/GII Not Detected (Not Detect.); Plesiomonas shigelloides Not Detected (Not Detect.); Rotavirus A Not Detected (Not Detect.); Salmonella Not Detected (Not Detect.); Sapovirus Not Detected (Not Detect.); Shigella sp./EIEC Not Detected (Not Detect.); Vibrio Not Detected (Not Detect.); Vibrio Cholerae Not Detected (Not Detect.); Yersinia enterocolitica Not Detected (Not Detect.)
--- NOTE | 2024-08-08 15:15 | HO.PM.IMPN ---
Subjective Subjective Date of Service: 08/08/24 Interval History: No acute issues overnight. Rate control poor when ambulating Review of Systems Denies chest pain Denies shortness of breath Denies nausea vomiting diarrhea Denies fever chills Physical Exam Vital Signs: Vital Signs: Last Vital Signs Temp 97.3 F 08/08/24 08:00 Pulse 93 08/08/24 08:00 Resp 16 08/08/24 08:00 BP 143/92 H 08/08/24 08:00 Pulse Ox 93 08/08/24 08:00 O2 Del Method Room Air 08/08/24 08:00 BMI result Body Mass Index 29.8 Const: Other: Awake alert oriented x3 in no acute distress Resp: Other: Clear to auscultation bilaterally no rales rhonchi or wheezes Cardio: Other: No S4; positive S1-S2; no S3 murmurs rubs or gallops GI: Other: Soft nontender nondistended normoactive bowel sounds Extrem: Other: No edema bilaterally Objective Data Active Medications Acetaminophen (Acetaminophen 325 Mg Tablet) 650 mg PO Q6H PRN PRN Reason: Pain, Mild 1-3,fever,headache Last Admin: 08/08/24 00:09 Dose: 650 mg Documented By: NANCY Comments: per pt request Acetaminophen/Butalbital/Caffeine (Butalb/Acetamin/Caff 50/325/40 Tablet) 1 tab PO Q6H PRN PRN Reason: Migraine Headache Last Admin: 08/08/24 01:52 Dose: 1 tab Documented By: NANCY Hydrocodone Bitart/Acetaminophen (Hydrocodone Bit/Acetam 5/325 Tablet) 1 tab PO BID PRN PRN Reason: pain, svere Albuterol Sulfate (Albuterol Sulfate 90 Mcg 8 Gm Inhaler) 2 puff INHALE Q6H PRN PRN Reason: Shortness Of Breath Or Wheezing Apixaban (Apixaban 5 Mg Tablet) 5 mg PO BID [facility] Last Admin: 08/08/24 08:01 Dose: 5 mg Documented By: SONI Atorvastatin Calcium (Atorvastatin Calcium 40 Mg Tablet) 40 mg PO BEDTIME [facility] Last Admin: 08/07/24 20:05 Dose: 40 mg Documented By: NANCY Calcium Carbonate (Calcium Carbonate 750 Mg Tab.Chew) 750 mg PO Q4H PRN PRN Reason: Heartburn Escitalopram Oxalate (Escitalopram Oxalate 10 Mg Tablet) 10 mg PO DAILY [facility] Last Admin: 08/08/24 08:01 Dose: 10 mg Documented By: SONI Piperacillin Sod/Tazobactam (Sod 3.375 gm/ Sodium Chloride) 50 mls @ 100 mls/hr IV Q6H [facility] Last Infusion: 08/08/24 15:00 Dose: Infused Documented By: SONI Levothyroxine Sodium (Levothyroxine Sodium 50 Mcg Tablet) 50 mcg PO DAILY@0600 [facility] Last Admin: 08/08/24 06:17 Dose: 50 mcg Documented By: NANCY Magnesium Hydroxide (Milk Of Magnesia 30 Ml Oral.Susp) 30 ml PO DAILY PRN PRN Reason: Constipation Melatonin (Melatonin 3 Mg Tablet) 6 mg PO BEDTIME PRN PRN Reason: Insomnia Ondansetron HCl (Ondansetron Hcl 4 Mg/2 Ml Vial) 4 mg IVPUSH Q8H PRN PRN Reason: Nausea and Vomiting Sodium Chloride (0.9 % Sodium Chloride Flush 3 Ml Syringe) 3 ml IVFLUSH QSHIFT [facility] Last Admin: 08/08/24 14:30 Dose: 3 ml Documented By: SONI Labs 08/08/24 05:33 08/07/24 05:57 Labs: Laboratory Results - last 24 hr 08/08/24 09:48 Stl C. cayetanensis PCR Not Detected Stool Rotavirus A PCR Not Detected Stl Adenov F 40/41 PCR Not Detected Stool Astrovirus (PCR) Not Detected Stool Campylobacter PCR Not Detected Stool Cryptosporidium PCR Not Detected Stl Sh Tox Pr E STEC PCR Not Detected Stool E coli O157 PCR Not applicable Stl Enterotoxigenic E PCR Not Detected Stool EPEC (PCR) Not Detected Stool EAEC (PCR) Not Detected Stl E. histolytica PCR Not Detected Stool Giardia Lamblia PCR Not Detected Stl P. shigelloides PCR Not Detected Stool Salmonella PCR Not Detected Stool Sapovirus (PCR) Not Detected Stl Shigella/EIEC PCR Not Detected St Y.enterocolitica PCR Not Detected Stool Vibrio (PCR) Not Detected Stl Vibrio cholerae PCR Not Detected Stl Norovirus GI/GII PCR Not Detected Microbiology Microbiology Results: Microbiology 08/06/24 11:44 Blood Culture - Preliminary Blood - Venous No growth after 48 hours. 08/06/24 11:58 Blood Culture - Preliminary Blood - Venous Prelim: GPR Gram Stain only 08/06/24 Unknown Urine Culture - Final Urine clean catch - Clean Catch Midstream Escherichia coli Assessment and Plan (1) Pancolitis: Status: Acute (2) Acute asthma exacerbation: Status: Acute (3) Persistent atrial fibrillation: Status: Acute Plan 74yo F with persistent atrial fibrillation on apixaban but not on any rate control agent, mild intermittent asthma, history of stroke, hypothyroidism, HTN, and OA presenting with 3 days of dysuria, abdominal discomfort, and diarrhea with question of minor hematochezia found to have ovalles-colitis, UTI, and lactic acidosis. 1.Acute pancolitis - 08/06- piperacillin-tazobactam -await GI input 2.UTI - Zosyn (3) 3.Acute lactic acidosis -resolved with IV fluids -follow clinically 4.Persistent atrial fibrillation -continuing Eliquis -poor rate control when ambulatory. We will follow clinically. -rate-controlling agents as indicated 5.Hypothyroidism - continue LT4 Apixaban Full Code In my clinical judgment, the patient requires continued inpatient hospitalization for the following reasons: IV ABX Quality Stroke Does the patient have a stroke diagnosis?: No VTE Prior VTE?: No VTE Risk Level:: Medical - moderate - high VTE Device Contraindication: N/A - Device Ordered VTE Drug Contraindication: N/A - Med Ordered
[2024-08-08 16:00] VITALS: BP 143/84; PULSE 99; RESP 16; TEMP 36.6; O2SAT 95
--- NOTE | 2024-08-08 16:48 | PC.NURSE ---
Patient on tele with HR up into 150-170 with ambulation to bathroom. Md notified of HR elevation and that HR recovers to baseline with rest.
[2024-08-08 20:00] VITALS: BP 150/87; PULSE 99; RESP 16; TEMP 36.7; O2SAT 93
[2024-08-08] MEDS: Atorvastatin Calcium 40 MG TABLET PO (20:44)
[2024-08-09] MEDS: Piperacillin Sodium/Tazobactam 3.375 GM in 0.9 % Sodium Chloride 50 ML IV ×3 (02:20→17:02)
[2024-08-09 03:49] VITALS: BP 164/91; PULSE 99; RESP 17; TEMP 37; O2SAT 93
[2024-08-09] MEDS: Levothyroxine Sodium 50 MCG TABLET PO (05:39)
[2024-08-09 05:43] LABS: MANUAL DIFF FLAG NO
[2024-08-09 05:45] LABS: Basophils Percent Auto 0.3 % (0-2); Eosinophils Absolute Auto 0.2 X10*3/uL (0.0-0.4); Eosinophils Percent Auto 2.4 % (0-4); Hematocrit 35.1 % (37.0-47.0); Hemoglobin 11.3 g/dl (12.0-16.0); Imm Gran Abs Auto 0.02 X10*3/uL (0.00-0.03); Imm Gran Pct Auto 0.3 % (0.0-0.4); Lymphocytes Absolute Auto 1.3 X10*3/uL (1.2-4.9); Lymphocytes Percent Auto 21.3 % (20-40); Mean Corpuscular HGB Conc 32.2 g/dl (31.0-35.0); Mean Corpuscular Hemoglobin 27.3 pg (27.0-33.0); Mean Corpuscular Volume 84.8 fL (80.0-98.0); Mean Platelet Volume 9.6 fL (9.4-12.3); Monocytes Absolute Auto 0.7 X10*3/uL (0.1-1.2); Monocytes Percent Auto 11.5 % (2-11); Neutrophils Percent Auto 64.2 % (45-73); Platelet Count 193 X10*3/uL (160-400); Red Blood Count 4.14 X10*6/uL (4.20-5.50); Red Cell Distribution Width 15.6 % (11.0-16.0); White Blood Count 6.2 X10*3/uL (4.8-10.8)
[2024-08-09 06:08] LABS: Alanine Aminotransferase 7 U/L (0-31); Albumin Level 3.3 g/dL (3.5-5.0); Anion Gap 13 (12-20); Aspartate Amino Transferase 23 U/L (5-31); Bilirubin Total 0.5 mg/dL (0.0-1.0); Blood Urea Nitrogen 9 mg/dL (9-16); Calcium 9.6 mg/dL (8.4-10.2); Carbon Dioxide 26 mmol/L (22-29); Chloride 102 mmol/L (96-108); Creatinine Clr Calc Pharmacy 65.4; Estimated Glomerular Filt Rate > 60; Glucose Fasting 91 mg/dL (60-99); Potassium 3.2 mmol/L (3.3-5.1); Sodium 138 mmol/L (135-145); Total Protein 6.2 g/dL (6.5-8.0)
[2024-08-09 06:11] LABS: Alkaline Phosphatase 51 U/L (39-117)
[2024-08-09] MEDS: Throat Lozenge, Medicated LOZENGE 1 LOZENGE MUCOUS MEM (06:20)
[2024-08-09] MEDS: Apixaban 5 MG TABLET PO ×2 (07:36→20:37)
[2024-08-09] MEDS: Escitalopram Oxalate 10 MG TABLET PO (07:36)
[2024-08-09] MEDS: 0.9 % Sodium Chloride Flush 3 ML SYRINGE IVFLUSH ×2 (07:38→20:38)
[2024-08-09 08:00] VITALS: BP 155/91; PULSE 92; RESP 16; TEMP 36.8; O2SAT 93
[2024-08-09] MEDS: Potassium Chloride Packet 20 MEQ PACKET 40 MEQ PO (08:01)
[2024-08-09] MEDS: Metoprolol Tartrate 25 MG TABLET PO ×2 (08:02→20:37)
--- NOTE | 2024-08-09 11:37 | MHC.CM.PN ---
Addendum entered by Thalia Radford 08/09/24 14:45: Discharge has been cancelled today. Per RN question of bowel perforation. Original Note: IMM 08/07/24 Per MD rounds patient is ready to discharge today. She will discharge to home self care. She has arranged for a family member to provide transportation home.
--- NOTE | 2024-08-09 12:31 | P.DS_ITS ---
DS: Providers Provider Date of Service: 08/09/24 Date of admission: 08/06/24 16:21 Date of discharge: 08/09/24 Primary care physician: Rai Fabian MD Consults: 08/06/24 01:16 Consult to Case Management Stat Comment: 08/06/24 16:41 Consult to Gastroenterology Routine Consulting Provider: Vinod Harrington Reason for consultation: colitis, fobt+_ DS: Diagnosis Discharge Diagnosis (1) Pancolitis: Status: Acute (2) Acute asthma exacerbation: Status: Acute (3) Persistent atrial fibrillation: Status: Acute DS: Summary Hospital Course Hospital Course: 74yo F with persistent atrial fibrillation on apixaban but not on any rate control agent, mild intermittent asthma, history of stroke, hypothyroidism, HTN, and OA who was recently admitted here for 1 day in late June for hypoxia due to Covid-19 infection. This time, she presents with 3 days of dysuria, lower abdominal discomfort, and mucus-filled diarrhea. She noticed 1 small spot of old blood in her stool. No nausea or vomiting. No fever. Appetite is not good. No sick contacts and no high-risk food exposures. No recent antibiotic usage. She was noted to have ovalles-colitis, more pronounced distally, on CT A/P. There was a tiny hyperdense area in the proximal sigmoid colon that could be incidental but possibly might represent a focus of active bleeding. Hb remained unchanged overnight at 11.6. She was given a dose of piperacillin-tazobactam. C. difficile PCR was negative. Urinalysis should pyuria and bacteruria; she was given 1 dose of PO cefuroxime. Lactate was 2.3 but improved to 1.5 after IV normal saline. NH3 was mildly elevated to 68. Hospital course Admitted to general medical floor and started on Zosyn for pancolitis and likely UTI. Over the course of hospitalization, hemoglobin remained stable and did actually rise to 11.3. Blood cultures 1/2 Gram-positive rods thought to be contaminant. Urine cultures grew E coli sensitive to ceftriaxone. She was seen in consultation by Physical therapy and deemed appropriate for discharge to home without physical therapy. She will follow up with the PCP next available Time Attestation Discharge Coordination Time (in mins): 35 Quality: Safe Use of Opioids Does Pt have an Active Cancer Diagnosis on the Problem List?: No Quality: Stroke Does the patient have a stroke diagnosis?: No Physical Exam Vital Signs: Vital Signs: Last Vital Signs Temp 98.2 F 08/09/24 08:00 Pulse 92 08/09/24 08:00 Resp 16 08/09/24 08:00 BP 155/91 H 08/09/24 08:00 Pulse Ox 93 08/09/24 08:00 O2 Del Method Room Air 08/09/24 08:00 BMI result Body Mass Index 29.8 Const: Other: Awake alert oriented x3 in no acute distress Resp: Other: Clear to auscultation bilaterally no rales rhonchi or wheezes Cardio: Other: No S4; positive S1-S2; no S3 murmurs rubs or gallops GI: Other: Soft nontender nondistended normoactive bowel sounds Extrem: Other: No edema bilaterally DS: Data Data Completed and Pending Labs on day of discharge: Laboratory Results - last 24 hr 08/08/24 08/09/24 09:48 05:31 WBC 6.2 RBC 4.14 L Hgb 11.3 L Hct 35.1 L MCV 84.8 MCH 27.3 MCHC 32.2 RDW 15.6 Plt Count 193 MPV 9.6 Immature Gran % (Auto) 0.3 Neut % (Auto) 64.2 Lymph % (Auto) 21.3 Banks % (Auto) 11.5 H Eos % (Auto) 2.4 Baso % (Auto) 0.3 Lymph # (Auto) 1.3 Banks # (Auto) 0.7 Eos # (Auto) 0.2 Baso # (Auto) 0.0 Abs Immat Gran (auto) 0.02 Absolute Neuts (auto) 4.0 Absolute Nucleated RBC 0.000 Nucleated RBC % (auto) 0.0 Sodium 138 Potassium 3.2 L Chloride 102 Carbon Dioxide 26 Anion Gap 13 BUN 9 Creatinine 0.77 Estim Creat Clear Calc 65.4 Estimated GFR > 60 Fasting Glucose 91 Calcium 9.6 D Total Bilirubin 0.5 AST 23 ALT 7 Alkaline Phosphatase 51 Total Protein 6.2 L Albumin 3.3 L Stl C. cayetanensis PCR Not Detected Stool Rotavirus A PCR Not Detected Stl Adenov F 40/41 PCR Not Detected Stool Astrovirus (PCR) Not Detected Stool Campylobacter PCR Not Detected Stool Cryptosporidium PCR Not Detected Stl Sh Tox Pr E STEC PCR Not Detected Stool E coli O157 PCR Not applicable Stl Enterotoxigenic E PCR Not Detected Stool EPEC (PCR) Not Detected Stool EAEC (PCR) Not Detected Stl E. histolytica PCR Not Detected Stool Giardia Lamblia PCR Not Detected Stl P. shigelloides PCR Not Detected Stool Salmonella PCR Not Detected Stool Sapovirus (PCR) Not Detected Stl Shigella/EIEC PCR Not Detected St Y.enterocolitica PCR Not Detected Stool Vibrio (PCR) Not Detected Stl Vibrio cholerae PCR Not Detected Stl Norovirus GI/GII PCR Not Detected Preliminary micro results at discharge 08/06/24 11:58 Blood Culture - Preliminary Blood - Venous Prelim: GPR Gram Stain only 08/06/24 11:44 Blood Culture - Preliminary Blood - Venous No growth after 48 hours. Discharge Plan Discharge Anticipated Discharge Date/Time: 08/09/24 12:21 Patient Disposition: Home, Self-Care Discharge Diagnosis: pancolitis Referrals: Rai Fabian MD [Primary Care Provider] - 1 Week Discharge Medications: New diphenoxylate-atropine [Lomotil] 2.5-0.025 mg tablet 1 tab PO BID PRN (Reason: diarrhea) Qty: 10 0RF cefuroxime axetil 500 mg tablet 500 mg PO BID 10 Days Qty: 20 0RF doxycycline hyclate 100 mg tablet 100 mg PO BID Qty: 20 0RF metoprolol tartrate 25 mg Tablet 25 mg PO BID Qty: 60 0RF Protocol: Hold for SBP/HR < HOLD for SBP < : 90 HOLD for HR < : 60 Continued hydrocodone-acetaminophen 5-325 mg tablet 1 tab PO BID PRN (Reason: Pain (Scale Score 4-6)) [id number]-[id number]-vtdk 50-325-40 mg tablet 1 tab PO Q6H PRN (Reason: Migraine Headache) furosemide 40 mg tablet 40 mg PO DAILY escitalopram oxalate 10 mg tablet 10 mg PO DAILY levothyroxine 50 mcg tablet 50 mcg PO DAILY@0600 albuterol sulfate 90 mcg/actuation HFA aerosol inhaler 2 puff inhalation Q6H PRN (Reason: Shortness Of Breath Or Wheezing) Prempro 0.625-2.5 mg tablet 1 tab PO DAILY Eliquis 5 mg tablet 5 mg PO BID atorvastatin 40 mg tablet 40 mg PO BEDTIME Discharge Orders: Discharge Order (Routine); Ordered 08/09/24 Ordered By: Cyril Morejon Diet: Advance to usual diet Activity on Discharge: As tolerated Stand Alone Forms: Patient Portal Discharge page Print Language: Algerian Care Plan Goals: Resume all medicines as taken prior to hospitalization including your cefuroxi me/doxycycline. Resume your metoprolol twice daily. Health Concerns: Advance diet as tolerated Plan of Treatment: Follow up with your PCP next available Assessment: See discharge summary
[2024-08-09 16:00] VITALS: BP 167/102; PULSE 91; RESP 18; TEMP 37.1; O2SAT 95
[2024-08-09] MEDS: iohexoL 350 MG/ML 100 ML INFUS..BTL IV (17:36)
[2024-08-09 20:00] VITALS: BP 148/90; PULSE 89; RESP 17; TEMP 36.8; O2SAT 94
[2024-08-09] MEDS: Butalb/Acetamin/Caff 50/325/40 TABLET 1 TAB PO (20:37)
[2024-08-09] MEDS: Atorvastatin Calcium 40 MG TABLET PO (20:37)
[2024-08-10] MEDS: Piperacillin Sodium/Tazobactam 3.375 GM in 0.9 % Sodium Chloride 50 ML IV ×3 (00:07→12:07)
[2024-08-10 04:00] VITALS: BP 159/87; PULSE 85; RESP 16; TEMP 37; O2SAT 93
[2024-08-10] MEDS: Butalb/Acetamin/Caff 50/325/40 TABLET 1 TAB PO (06:05)
[2024-08-10] MEDS: Levothyroxine Sodium 50 MCG TABLET PO (06:05)
[2024-08-10 07:28] VITALS: BP 154/89; PULSE 79; RESP 16; TEMP 36; O2SAT 92
--- NOTE | 2024-08-10 08:27 | P.CONGS_ITS ---
History of Present Illness Consult details Consult date: 08/10/24 <eJanne Etienne PA-C - Last Filed: 08/10/24 10:05> Requesting physician: Cyril Morejon <Jeanne Etienne PA-C - Last Filed: 08/10/24 10:05> Narrative: 74 year old female with PMH of with persistent atrial fibrillation on apixaban, mild intermittent asthma, history of stroke, hypothyroidism who initially presented to the ED with 3 days of dysuria, abdominal discomfort, and diarrhea with question of minor hematochezia. She was found to have ovalles-colitis likely infectious, UTI, and lactic acidosis. She was admitted to the hospitalist service and started on Zosyn for pancolitis and likely UTI. Over the course of hospitalization, hemoglobin remained stable. Her symptoms improved, and her diet was advanced. Blood cultures 1/2 Clostridium perfringens thought to be contaminant. Urine cultures grew E coli sensitive to ceftriaxone. ID was consulted given the positive BC who was concerned about diverticulitis with microperforation and recommended surgical consult. CT abd pelvis with oral contrast was obtained for f/u showed no colonic wall thickening or surrounding inflammatory changes, no abscess, no free air. This morning she denies any abdominal pain. She is tolerating a solid diet. She denies prior episodes of similar symptoms. Last colonoscopy 07/13 showed diverticulosis. She feels back to baseline. <Jeanne Etienne PA-C - Last Filed: 08/10/24 10:05> Review of Systems 2 Review of Systems: Yes all other systems are reviewed and are negative < Jeanne Etienne PA-C - Last Filed: 08/10/24 10:05> [facility] Past Medical History Medical History: Medical History (Updated 08/08/24 @ 15:23 by Cyril Morejon DO) Persistent atrial fibrillation Class 1 obesity Essential hypertension Primary osteoarthritis involving multiple joints Anxiety GERD (gastroesophageal reflux disease) Carpal tunnel syndrome Stroke Hypothyroidism Arthritis HTN (hypertension) Asthma Obesity Chronic pain <Jeanne Etienne PA-C - Last Filed: 08/10/24 10:05> Family History Family History: Family History Father CVD (cardiovascular disease) Diabetes Mother CVD (cardiovascular disease) HTN (hypertension) <NATHANIEL Espinal Last Filed: 08/10/24 10:05> Surgical History Surgical History: Surgical History History of left shoulder replacement History of right shoulder replacement S/P panniculectomy Hx of cholecystectomy S/P foot surgery, right History of bladder surgery History of tonsillectomy <Jeanne Etienne PA-C - Last Filed: 08/10/24 10:05> Social History Social History: Social History Household Members: Significant Other Housing: Condominium Do you presently have visiting nurse or other home services: No Unable to assess alcohol history related to: Unknown Alcohol intake: never Patient Tobacco Use Status: Never used Tobacco e-Cigarette/Vaping Use: Never Used Advance Directives Date on File: 06/02/23 service: No Current occupational status: retired <Jeanne Etienne PA-C - Last Filed: 08/10/24 10:05> Meds Allergies/Adverse reactions: Allergies Allergy/AdvReac Type Severity Reaction Status Date / Time No Known Allergies Allergy Mild N/A Verified 08/05/24 19:18 <Jeanne Etienne PA-C - Last Filed: 08/10/24 10:05> Active Medications: Current Medications Acetaminophen (Acetaminophen 325 Mg Tablet) 650 mg PO Q6H PRN PRN Reason: Pain, Mild 1-3,fever,headache Last Admin: 08/08/24 00:09 Dose: 650 mg Acetaminophen/Butalbital/Caffeine (Butalb/Acetamin/Caff 50/325/40 Tablet) 1 tab PO Q6H PRN PRN Reason: Migraine Headache Last Admin: 08/10/24 06:05 Dose: 1 tab Hydrocodone Bitart/Acetaminophen (Hydrocodone Bit/Acetam 5/325 Tablet) 1 tab PO BID PRN PRN Reason: pain, svere Albuterol Sulfate (Albuterol Sulfate 90 Mcg 8 Gm Inhaler) 2 puff INHALE Q6H PRN PRN Reason: Shortness Of Breath Or Wheezing Apixaban (Apixaban 5 Mg Tablet) 5 mg PO BID [facility] Last Admin: 08/09/24 20:37 Dose: 5 mg Atorvastatin Calcium (Atorvastatin Calcium 40 Mg Tablet) 40 mg PO BEDTIME [facility] Last Admin: 08/09/24 20:37 Dose: 40 mg Benzocaine (Throat Lozenge, Medicated Lozenge) 1 lozenge MUCOUS MEM Q2H PRN PRN Reason: Sore Throat Last Admin: 08/09/24 06:20 Dose: 1 lozenge Calcium Carbonate (Calcium Carbonate 750 Mg Tab.Chew) 750 mg PO Q4H PRN PRN Reason: Heartburn Escitalopram Oxalate (Escitalopram Oxalate 10 Mg Tablet) 10 mg PO DAILY [facility] Last Admin: 08/09/24 07:36 Dose: 10 mg Piperacillin Sod/Tazobactam (Sod 3.375 gm/ Sodium Chloride) 50 mls @ 100 mls/hr IV Q6H [facility] Last Infusion: 08/10/24 06:36 Dose: Infused Levothyroxine Sodium (Levothyroxine Sodium 50 Mcg Tablet) 50 mcg PO DAILY@0600 [facility] Last Admin: 08/10/24 06:05 Dose: 50 mcg Magnesium Hydroxide (Milk Of Magnesia 30 Ml Oral.Susp) 30 ml PO DAILY PRN PRN Reason: Constipation Melatonin (Melatonin 3 Mg Tablet) 6 mg PO BEDTIME PRN PRN Reason: Insomnia Metoprolol Tartrate (Metoprolol Tartrate 25 Mg Tablet) 25 mg PO BID [facility]; Protocol Last Admin: 08/09/24 20:37 Dose: 25 mg Ondansetron HCl (Ondansetron Hcl 4 Mg/2 Ml Vial) 4 mg IVPUSH Q8H PRN PRN Reason: Nausea and Vomiting Sodium Chloride (0.9 % Sodium Chloride Flush 3 Ml Syringe) 3 ml IVFLUSH QSHIFT [facility] Last Admin: 08/09/24 20:38 Dose: 3 ml <Jeanne Etienne PA-C - Last Filed: 08/10/24 10:05> Home medications: Home Medications ?Medication ?Instructions ?Recorded ?Confirmed ?Last Taken ?Type apixaban 5 mg tablet (Eliquis) 5 mg PO BID 03/27/20 08/06/24 05/28/23 History atorvastatin 40 mg tablet 40 mg PO BEDTIME 03/27/20 08/06/24 05/28/23 History conj estrogen-medroxyprogesterone 1 tab PO DAILY 01/08/1008/06/24 05/28/23 History 0.625 mg-2.5 mg tablet (Prempro) [id number]-tpdyfslvvsrey-gfkiomdg 1 tab PO Q6H PRN Migraine Headache 05/13/21 08/06/24 05/18/21 History 50 mg-325 mg-40 mg tablet hydrocodone 5 mg-acetaminophen 325 1 tab PO BID PRN Pain (Scale Score 05/13/21 08/06/24 05/18/21 History mg tablet 4-6) albuterol sulfate 90 mcg/actuation 2 puff inhalation Q6H PRN 05/29/23 08/06/24 05/28/23 History aerosol inhaler Shortness Of Breath Or Wheezing levothyroxine 50 mcg tablet 50 mcg PO DAILY@0600 05/29/23 08/06/24 05/28/23 History escitalopram oxalate 10 mg tablet 10 mg PO DAILY 07/15/24 08/06/24 Unknown History furosemide 40 mg tablet 40 mg PO DAILY 07/15/24 08/06/24 Unknown History <NATHANIEL Espinal Last Filed: 08/10/24 10:05> Physical Exam 2 Vital Signs: Vital Signs: Last Vital Signs Temp 96.8 F 08/10/24 07:28 Pulse 79 08/10/24 07:28 Resp 16 08/10/24 07:28 BP 154/89 H 08/10/24 07:28 Pulse Ox 92 08/10/24 07:28 O2 Del Method Room Air 08/10/24 07:28 BMI result Body Mass Index 29.8 <NATHANIEL Espinal Last Filed: 08/10/24 10:05> Const: General: comfortable, no acute distress and alert <NATHANIEL Espinal Last Filed: 08/10/24 10:05> Orientation/consciousness: patient oriented x3 <NATHANIEL Espinal Last Filed: 08/10/24 10:05> Resp: Effort & Inspection: normal respiratory effort <NATHANIEL Espinal Last Filed: 08/10/24 10:05> GI: Inspection: Yes normal to inspection and No distended <NATHANIEL Espinal Last Filed: 08/10/24 10:05> Palpation (GI): Soft to palpation, nontender, no guarding and not rigid < Jeanne Etienne PA-C - Last Filed: 08/10/24 10:05> Skin: General skin exam: no rashes or lesions noted <NATHANIEL Espinal Last Filed: 08/10/24 10:05> Neuro: General: patient oriented x3 and moves all extremities <Jeanne Etienne PA-C - Last Filed: 08/10/24 10:05> Results Labs Result diagrams: 08/09/24 05:31 08/09/24 05:31 <Jeanne Etienne PA-C - Last Filed: 08/10/24 10:05> Labs: Urine 08/05/24 08/06/24 Range/Units 23:11 11:40 Urine Color Yellow Yellow Urine Appearance Turbid Clear Urine pH 5.5 5.5 (5.0-9.0) Ur Specific Outing 1.015 1.015 (1.005-1.025) Urine Protein 30 (1+) H Trace (Neg-Trace) mg/dL Urine Glucose (UA) Negative Negative (Negative) mg/dL All other labs normal. <Jeanne Etienne PA-C - Last Filed: 08/10/24 10:05> Imaging Abdomen CT scan report/results: report reviewed and image reviewed <Jeanne Etienne PA-C - Last Filed: 08/10/24 10:05> Assessment and Plan (1) Colitis: Status: Acute <Jeanne Etienne PA-C - Last Filed: 08/10/24 10:05> 74 year female admitted on 08/06/2024 for diarrhea Initial CAT scan findings suggested ovalles colitis Currently, she denies any abdominal pain Diarrhea has resolved Abdomen is soft and benign Follow up CAT scan does not reveal any acute intra-abdominal pathology LFTs normal No surgical issues currently Seen and examined independently <Ayo Raza MD - Last Filed: 08/10/24 10:11> 74 year old female with PMH of with persistent atrial fibrillation on apixaban, mild intermittent asthma, history of stroke, hypothyroidism admitted to hospitalist service for ovalles-colitis likely infectious, UTI. She has been on IV zosyn. ID had concern for possible diverticulitis with microperf given one positive blood culture for Clostridium perfringens and recommended general surgery consult. Repeat CT scan abd pelvis showed no colonic wall thickening or surrounding inflammatory changes, no fluid collection or extraluminal air. Her abdomen is very benign and she has had resolution of her abdominal pain and is tolerating solid diet. She clinically is doing well without evidence of microperforation and appears stable for discharge on oral antibiotics from surgical standpoint. <Jeanne Etienne PA-C - Last Filed: 08/10/24 10:05> Procedures Date of Service Date of Service: 08/10/24 <Jeanne Etienne PA-C - Last Filed: 08/10/24 10:05> 08/10/24 <Ayo Raza MD - Last Filed: 08/10/24 10:11>
[2024-08-10] MEDS: Metoprolol Tartrate 25 MG TABLET PO (08:58)
[2024-08-10] MEDS: Escitalopram Oxalate 10 MG TABLET PO (08:59)
[2024-08-10] MEDS: Apixaban 5 MG TABLET PO (08:59)
[2024-08-10] MEDS: 0.9 % Sodium Chloride Flush 3 ML SYRINGE IVFLUSH (08:59)
--- NOTE | 2024-08-10 11:21 | MHC.CM.PN ---
IMM 08/10/24 Patient discharged to home today self care. She has arranged for transportation home.
--- NOTE | 2024-08-10 12:12 | HO.PM.IMPN ---
Subjective Subjective Date of Service: 08/10/24 Interval History: No acute issues overnight. Data reviewed seen by surgery Review of Systems Denies chest pain Denies shortness of breath Denies nausea vomiting diarrhea Denies fever chills Physical Exam Vital Signs: Vital Signs: Last Vital Signs Temp 96.8 F 08/10/24 07:28 Pulse 79 08/10/24 07:28 Resp 16 08/10/24 07:28 BP 154/89 H 08/10/24 07:28 Pulse Ox 92 08/10/24 07:28 O2 Del Method Room Air 08/10/24 07:28 BMI result Body Mass Index 29.8 Const: Other: Awake alert oriented x3 in no acute distress Resp: Other: Clear to auscultation bilaterally no rales rhonchi or wheezes Cardio: Other: No S4; positive S1-S2; no S3 murmurs rubs or gallops GI: Other: Soft nontender nondistended normoactive bowel sounds Extrem: Other: No edema bilaterally Objective Data Active Medications Acetaminophen (Acetaminophen 325 Mg Tablet) 650 mg PO Q6H PRN PRN Reason: Pain, Mild 1-3,fever,headache Last Admin: 08/08/24 00:09 Dose: 650 mg Documented By: NANCY Comments: per pt request Acetaminophen/Butalbital/Caffeine (Butalb/Acetamin/Caff 50/325/40 Tablet) 1 tab PO Q6H PRN PRN Reason: Migraine Headache Last Admin: 08/10/24 06:05 Dose: 1 tab Documented By: MOR Hydrocodone Bitart/Acetaminophen (Hydrocodone Bit/Acetam 5/325 Tablet) 1 tab PO BID PRN PRN Reason: pain, svere Albuterol Sulfate (Albuterol Sulfate 90 Mcg 8 Gm Inhaler) 2 puff INHALE Q6H PRN PRN Reason: Shortness Of Breath Or Wheezing Apixaban (Apixaban 5 Mg Tablet) 5 mg PO BID [facility] Last Admin: 08/10/24 08:59 Dose: 5 mg Documented By: LIDA Atorvastatin Calcium (Atorvastatin Calcium 40 Mg Tablet) 40 mg PO BEDTIME [facility] Last Admin: 08/09/24 20:37 Dose: 40 mg Documented By: MOR Benzocaine (Throat Lozenge, Medicated Lozenge) 1 lozenge MUCOUS MEM Q2H PRN PRN Reason: Sore Throat Last Admin: 08/09/24 06:20 Dose: 1 lozenge Documented By: NANCY Calcium Carbonate (Calcium Carbonate 750 Mg Tab.Chew) 750 mg PO Q4H PRN PRN Reason: Heartburn Escitalopram Oxalate (Escitalopram Oxalate 10 Mg Tablet) 10 mg PO DAILY [facility] Last Admin: 08/10/24 08:59 Dose: 10 mg Documented By: LIDA Piperacillin Sod/Tazobactam (Sod 3.375 gm/ Sodium Chloride) 50 mls @ 100 mls/hr IV Q6H [facility] Last Admin: 08/10/24 12:07 Dose: 100 mls/hr Documented By: LIDA Levothyroxine Sodium (Levothyroxine Sodium 50 Mcg Tablet) 50 mcg PO DAILY@0600 [facility] Last Admin: 08/10/24 06:05 Dose: 50 mcg Documented By: JENNIFER-CONNWilmer Magnesium Hydroxide (Milk Of Magnesia 30 Ml Oral.Susp) 30 ml PO DAILY PRN PRN Reason: Constipation Melatonin (Melatonin 3 Mg Tablet) 6 mg PO BEDTIME PRN PRN Reason: Insomnia Metoprolol Tartrate (Metoprolol Tartrate 25 Mg Tablet) 25 mg PO BID [facility]; Protocol Last Admin: 08/10/24 08:58 Dose: 25 mg Documented By: LIDA Ondansetron HCl (Ondansetron Hcl 4 Mg/2 Ml Vial) 4 mg IVPUSH Q8H PRN PRN Reason: Nausea and Vomiting Sodium Chloride (0.9 % Sodium Chloride Flush 3 Ml Syringe) 3 ml IVFLUSH QSHIFT [facility] Last Admin: 08/10/24 08:59 Dose: 3 ml Documented By: LIDA Labs 08/09/24 05:31 08/09/24 05:31 Microbiology Microbiology Results: Microbiology 08/06/24 11:58 Blood Culture - Final Blood - Venous Clostridium perfringens Assessment and Plan (1) Pancolitis: Status: Acute Plan 74yo F with persistent atrial fibrillation on apixaban but not on any rate control agent, mild intermittent asthma, history of stroke, hypothyroidism, HTN, and OA presenting with 3 days of dysuria, abdominal discomfort, and diarrhea with question of minor hematochezia found to have ovalles-colitis, UTI, and lactic acidosis. 1.Acute pancolitis - 5/17- piperacillin-tazobactam -await GI input 03/24 blood cultures with Clostridium. Discussed with ID. Cat scan of abdomen with oral contrast failed to demonstrate any acute perforations. Seen by surgery who feel patient appropriate for discharge Quality Stroke Does the patient have a stroke diagnosis?: No VTE Prior VTE?: No VTE Risk Level:: Medical - moderate - high VTE Device Contraindication: N/A - Device Ordered VTE Drug Contraindication: N/A - Med Ordered
== END 2024-08-10 14:21 | disposition home or self-care (01) | DRG 392 ==
LOC: HO.ED 08-06 15:57 → HO.EDOVER 08-06 16:33 → HO.S3 08-07 00:29
PROVIDERS: Emergency Medicine; Internal Medicine; Internal Medicine Gastroenterology; Physician Assistant Medical; Admitting Provider Family Medicine; Emergency Provider Emergency Medicine Emergency Medical Services; PCP Internal Medicine; Visit Provider Hospitalist
DX: K52.9 Noninfective gastroenteritis and colitis, unspecified (principal); E87.21 Acute metabolic acidosis; I48.19 Other persistent atrial fibrillation; N39.0 Urinary tract infection, site not specified; K92.1 Melena; B96.7 Clostridium perfringens [C. perfringens] as the cause of diseases classified elsewhere; E03.9 Hypothyroidism, unspecified; B96.20 Unspecified Escherichia coli [E. coli] as the cause of diseases classified elsewhere; R31.9 Hematuria, unspecified; J45.20 Mild intermittent asthma, uncomplicated; E78.5 Hyperlipidemia, unspecified; F41.9 Anxiety disorder, unspecified; Z79.01 Long term (current) use of anticoagulants; Z79.890 Hormone replacement therapy; Z79.899 Other long term (current) drug therapy
CPT/HCPCS: 36415; 70450; 71045; 71275; 74176; 74177; 80048; 80053; 80076; 81001; 82140; 82272; 82803; 83605; 83690; 83735; 84443; 85014; 85018; 85025; 85027; 86140; 87040; 87076; 87086; 87088; 87185; 87186; 87205; 87493; 87507; 93005; 97162; 97530; 99285; J2543; Q9967

== ENCOUNTER → 2024-08-06 04:36 | Outpatient (BNV) | payer MEDICARE, SELFPAY | PROVIDERS: Emergency Provider Emergency Medicine; PCP Internal Medicine; Visit Provider Specialist | DX: R91.8 Other nonspecific abnormal finding of lung field (principal); R19.7 Diarrhea, unspecified; R10.9 Unspecified abdominal pain; J98.11 Atelectasis; R41.82 Altered mental status, unspecified; J18.9 Pneumonia, unspecified organism; J98.4 Other disorders of lung | CPT/HCPCS: 71045; 74176 ==

== ENCOUNTER → 2024-08-06 13:02 | Outpatient (BNV) | payer MEDICARE, SELFPAY | PROVIDERS: Admitting Provider Family Medicine; Emergency Provider Emergency Medicine Emergency Medical Services; PCP Internal Medicine; Visit Provider Internal Medicine Cardiovascular Disease | DX: I48.91 Unspecified atrial fibrillation (principal) | CPT/HCPCS: 93010 ==

== ENCOUNTER 2024-08-06 16:21 | Outpatient (BNV) | payer MEDICARE, SELFPAY | END 2024-08-09 17:30 | PROVIDERS: Admitting Provider Family Medicine; Emergency Provider Emergency Medicine Emergency Medical Services; PCP Internal Medicine; Visit Provider Student in an Organized Health Care Education/Training Program | DX: K80.50 Calculus of bile duct without cholangitis or cholecystitis without obstruction (principal); J98.11 Atelectasis; M47.815 Spondylosis without myelopathy or radiculopathy, thoracolumbar region; M41.35 Thoracogenic scoliosis, thoracolumbar region | CPT/HCPCS: 74177 ==

== ENCOUNTER → 2024-08-06 16:21 | Outpatient (BNV) | payer MEDICARE, SELFPAY | PROVIDERS: Admitting Provider Family Medicine; Emergency Provider Emergency Medicine Emergency Medical Services; PCP Internal Medicine; Visit Provider Physician Assistant Surgical | DX: K52.9 Noninfective gastroenteritis and colitis, unspecified (principal) | CPT/HCPCS: 99222 ==

== ENCOUNTER → 2024-08-06 16:21 | Outpatient (BNV) | payer MEDICARE, SELFPAY | PROVIDERS: Admitting Provider Family Medicine; Emergency Provider Emergency Medicine Emergency Medical Services; PCP Internal Medicine; Visit Provider Family Medicine | DX: N39.0 Urinary tract infection, site not specified (principal) | CPT/HCPCS: 99223; 99232; 99239 ==

== ENCOUNTER 2024-08-12 15:03 | Outpatient (REF) | payer MEDICARE, SELFPAY ==
--- OUTSIDE RECORDS SUMMARY | 2024-08-12 15:05 | XMS_ITS ---
Author Organization Rai Fabian MD Address [address] [place] [phone] Support Name Relationship Address Phone Rai Fabian Caregiver [address] [facility] [address] [place] [address] [phone] Nicole Díaz Caregiver [facility] [address] [place] [address] [phone] Raheel Morley Caregiver [address] [facility] [address] [place] [address] [id number] Travis Taylor Caregiver [address] [facility] [address] [place] [address] [id number] May Landis Caregiver [address] [facility] [address] [place] [address] [id number] DOROTHY GNOZALEZ Caregiver [address] [facility] [address] [place] [address] [phone] Lele Childress Caregiver [facility] [address] [place] [address] [id number] BILL MEDINA Caregiver [address] [facility] [address] [place] [address] [id number] Judy Woods Caregiver [facility] [address] [place] [address] [id number] CAMILLE SINGER Caregiver [address] [facility] [address] [place] [address] [phone] ANILA BATES Caregiver [address] [place] [address] [id number] TRAVIS COFFEY Emergency Contact Unknown Mandie Gonzalez Guarantor Unknown [phone] Care Team Providers Care Polish Compounder Name Role Phone Rui Rai Primary Care Provider [phone] REASON FOR VISIT discharge Encounters Encounter Location Date Provider Diagnosis Rai Fabian MD [address] [place] [address] [address] [place] [phone] 08/09/2024 Rai Fabian Plan Of Treatment Next Appt Details Provider Name:Rai Colin ier, 09/09/2024 01:45:00 PM, [address] [place] [address], [address], [place], [id number], Provider Name:Rai Colin iekorey, 10/28/2024 07:45:00 AM, [address] [place] [address], [address], [place], [id number], Provider Name:Rai trottre, 11/04/2024 02:00:00 PM, [address] [place] [address], [address], [place], [id number], Provider Name:Rai trotter, 05/04/2025 07:15:00 AM, [address] [place] [address], [address], [place], [id number], Provider Name:Rai trotter, 05/11/2025 02:30:00 PM, [address] [place] [address], [address], [place], [id number], Progress Notes * Aaron GONZALEZOB: 9 (74 yo F)Acc No.[id number]:08/09/2024 Patient:?Mandie GONZALEZ :1950???Age:74 Y???Sex:Female Address:[address] [place] [address] Kit, Kishanjigar hurtLINDA cano [phone] * true * Date:? Generated for Feliciai mehnaz/Dash/eTransmitting on:?08/12/2024 03:05 PM EDT
[2024-08-12 15:45] LABS: Potassium 3.6 mmol/L (3.3-5.1)
== END 2024-08-12 15:04 | disposition home or self-care (01) ==
LOC: HO.LNP 15:03
PROVIDERS: Visit Provider Internal Medicine
DX: E87.6 Hypokalemia (principal)
CPT/HCPCS: 84132

== ENCOUNTER 2024-08-25 12:20 | Outpatient (REF) | payer MEDICARE, SELFPAY ==
[2024-08-25 12:38] LABS: Appearance Urine Cloudy; Color Urine Yellow; Glucose Urine UA Negative (Negative); Leukocyte Esterase Urine Large (3+) (Negative); Nitrite Urine Positive (Negative); Specific Gravity - Urine 1.015 (1.005-1.025); UMIC TRIGGER UACC YES; Urine Blood Negative (Negative); Urine Ketones Negative (Negative); Urine Protein Trace mg/dL (Neg-Trace)
[2024-08-25 13:21] LABS: Bacteria Urine 4+ (None Seen); Squamous Epithelial Cell Urine >20 /HPF (0-2); UACC Culture Trigger YES; WBC Urine >50 /HPF (0-5)
[2024-08-25 13:22] LABS: RBC Urine 0-2 /HPF (0-2)
--- OUTSIDE RECORDS SUMMARY | 2024-08-25 14:25 | XMS_ITS | Patient Health Record ---
Author Organization [facility] Address [address] [place] [address] Care Team Providers Care Batch Maker Name Role Phone Rai Fabian MD Primary Care Provider Travis Perez Unavailable [phone] Allergies No Known Allergies Results Component Value Reference Range Notes GI PANEL Reviewed date:08/11/2024 11:14:03 AM Interpretation: Performing Lab:[facility], [address] [place] [phone] Notes/Report: Campylobacter Not Detected Not Detect. Plesiomonas [...] viability. Additionally, some organisms may be carried asymptomatically. Detection of organism targets does not imply [...] is performed by Multiplexed PCR, utilizing the [employer] Array. Reason For Referral No Information Medications Medication [...] 25 MG Oral for 90 Ac tive Jvtrngcfkg-[id number]-Emiqkfxa 50-325-40 MG Oral for 30 Active HYDROcodone-Acetaminophen [...] Problem Status W/U Status Risk Notes Problem 653224375 Encounter for screening for malignant neoplasm of colon (Z12.11) Active confirmed Problem 286849407 History of adenomatous polyp of colon (Z86.010) Active confirmed Problem Diverticular disease of colon (681238655) Diverticulosis of large intestine without perforation or abscess without bleeding (K57.30) Active confirmed Problem 693564705 Irritable bowel syndrome with diarrhea (K58.0) Active confirmed Problem Melena (0691625) Melena (K92.1) Active confirme d Problem Iron deficiency anemia (40621278) Iron deficiency anemia (D50.9) Active confirmed Problem Gastritis (9298311) Gastritis (K29.70) Active confirmed Problem 29203737 Iron deficiency anemia, unspecified iron deficiency anemia type (D50.9) Active confirmed Problem 70637891 Diarrhea, unspecified type (R19.7) Active confirmed Problem 61733586 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) Active confirmed Problem 5473016252470 Clostridium difficile diarrhea (A04.72) Active confirmed Problem 89567283 Diarrhea of presumed infectious origin (R19.7) Active confirmed Problem 900604067916164 History of Clostridioides difficile infection (Z86.19) Active confirmed Problem Acute diarrhea (702467235) Acute diarrhea (R19.7) Active confirmed Encounters Encounter Location Date Provider Diagnosis [facility] [address] [facility] [address] [place] [address] 08/04/2024 Travis Taylor Plan Of Treatment Pending [...] STOOL WBC 12/02/2022 C DIFFICILE RFLX PCR 12/02/2022 C DIFFICILE RFLX PCR 10/29/2022 C DIFFICILE RFLX PCR 2023 C DIFFICILE RFLX PCR 12/23/2022 C DIFFICILE RFLX PCR 06/16/2023 TSH reflex Free T4 12/23/2022 GI PANEL 10/29/2022 GI PANEL 12/23/2022 Future Test Test Name Order Date COLONOSCOPY 04/01/2017 UPPER GI ENDOSCOPY 06/26/2022 COLONOSCOPY 06/26/2022 Insurance Providers Payer Name Payer Address Payer Phone Subscriber Number Group Number Insured Name Patient Relationship to Insured Coverage Start Date Coverage End Date MEDICARE OF [place] [address] [place] [address] [phone] [id number] JAKOB BECERRIL Self - patient is the insured [employer] ATTN CLAIMS [address] [place] [address] [id number] JAKOB BECERRIL Self - patient is the insured Medical (General) History Medical History History ICD Code Stroke- August 2016--no residu al--received TPA at [facility] [place]--on Eliquis--? for Afib or SVT at the time of the CVA Hypertension Urinary incontinence Seasonal allergies Denies CT,DM,Lung disease,renal disease Hyperlipidemia Arthritis Hypothyroidism EGD in [...]
== END 2024-08-25 12:21 | disposition home or self-care (01) ==
LOC: HO.LNP 12:20
PROVIDERS: Visit Provider Internal Medicine
DX: N39.0 Urinary tract infection, site not specified (principal)
CPT/HCPCS: 81001; 87086; 87088; 87186

== ENCOUNTER 2024-08-27 07:27 | Emergency (ER) | payer MEDICARE, SELFPAY ==
--- NOTE | ~2024-08-27 | XR_ITS ---
CLINICAL HISTORY: WEAKNESS 2 view chest x-ray Comparison: CT/SR - CT ANGIO CHEST PE PROTOCOL - 08/06/24 12:26 EDT Findings: Unchanged moderate elevation of the right hemidiaphragm. Cardiac silhouette is unchanged in size. No focal areas of consolidation. No pleural effusion or pneumothorax. Bilateral reverse shoulder arthroplasties are unchanged in appearance compared to prior study. IMPRESSION: 1. No acute findings. This document has been electronically signed by: Ramakrishna Waters MD on 08/27/2024 09:09:39
[2024-08-27 07:33] VITALS: BP 100/69; BP 132/68; PULSE 108; PULSE 99; RESP 18; TEMP 36.5; O2SAT 95
--- NOTE | 2024-08-27 07:39 | ECG_ITS ---
Test Reason : WEAKNESS Blood Pressure : */* mmHG Vent. Rate : 107 BPM Atrial Rate : * BPM P-R Int : * ms QRS Dur : 92 ms QT Int : 386 ms P-R-T Axes : * -9 136 degrees QTcB Int : 515 ms Atrial fibrillation with rapid ventricular response Nonspecific ST and T wave abnormality Abnormal ECG When compared with ECG of 06-Aug-2024 13:21, Nonspecific T wave abnormality now evident in Inferior leads QT has lengthened Referred By: Generic ED Physician Electronically Signed By: ANILA BATES
--- OUTSIDE RECORDS SUMMARY | 2024-08-27 07:55 | XMS_ITS | Patient Health Record ---
Author Organization [facility] Address [address] [place] [address] Care Team Providers Care Vet Tech Name Role Phone Rai Fabian MD Primary Care Provider Travis Perez Unavailable [phone] Allergies No Known Allergies Results Component Value Reference Range Notes GI PANEL Reviewed date:08/11/2024 11:14:03 AM Interpretation: Performing Lab:[facility], [address] [place] [phone] Notes/Report: Campylobacter Not Detected Not Detect. Plesiomonas [...] is performed by Multiplexed PCR, utilizing the [employer] Array. Reason For Referral No Information Medications [...] 25 MG Oral for 90 Ac tive Jxkmmbajmb-XGZX-Fpubbypn 50-325-40 MG Oral for 30 Active HYDROcodone-Acetaminophen [...] Problem Status W/U Status Risk Notes Problem 451923770 Encounter for screening for malignant neoplasm of colon (Z12.11) Active confirmed Problem 639663851 History of adenomatous polyp of colon (Z86.010) Active confirmed Problem Diverticular disease of colon (890321006) Diverticulosis of large intestine without perforation or abscess without bleeding (K57.30) Active confirmed Problem 695570906 Irritable bowel syndrome with diarrhea (K58.0) Active confirmed Problem Melena (2705154) Melena (K92.1) Active confirme d Problem Iron deficiency anemia (80960618) Iron deficiency anemia (D50.9) Active confirmed Problem Gastritis (6456309) Gastritis (K29.70) Active confirmed Problem 49593459 Iron deficiency anemia, unspecified iron deficiency anemia type (D50.9) Active confirmed Problem 04840708 Diarrhea, unspecified type (R19.7) Active confirmed Problem 69733970 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 [place] [address] 08/04/2024 Travis Taylor Plan Of Treatment Pending [...] Date MEDICARE OF [place] [address] [place] [address] [id number] JAKOB BECERRIL Self - patient is the insured MED[employer] ATTN CLAIMS [address] [place] [address] [id number] JAKOB BECERRIL Self - patient is the insured Medical (General) History Medical History History ICD Code Stroke- August 2016--no residu al--[place] [facility] [place]? for Afib or SVT at the [...]
--- NOTE | 2024-08-27 08:39 | ED_ITS ---
HPI - Weakness General Chief complaint: Weakness Stated complaint: WEAKNESS Time Seen by Provider: 08/27/24 08:35 Source: patient and EMS Mode of arrival: EMS Limitations: no limitations History of Present Illness ED Provider: HPI Narrative: 74-year-old woman presenting with weakness, neck pain, neck pain is worse with movement, no trauma no new pillows etc. and GI upset, symptoms have been going on for the past 2 days. Headache is minimal mostly it is the neck pain. No rashes, reports no dysuria, no hematuria and no abdominal pain has had no diarrhea. Recent admission for UTI, colitis, blood cultures positive for Clostridium perfringens. Related Data Home Medications ?Medication ?Instructions ?Recorded ?Confirmed apixaban 5 mg tablet (Eliquis) 5 mg PO BID 03/27/20 08/06/24 atorvastatin 40 mg tablet 40 mg PO BEDTIME 03/27/20 08/06/24 conj estrogen-medroxyprogesterone 1 tab PO DAILY 03/27/20 08/06/24 0.625 mg-2.5 mg tablet (Prempro) brakymhxdv-ihbgrsoboxani-tyhrrako 1 tab PO Q6H PRN Migraine Headache 05/13/21 08/06/24 50 mg-325 mg-40 mg tablet hydrocodone 5 mg-acetaminophen 325 1 tab PO BID PRN Pain (Scale Score 05/13/21 08/06/24 mg tablet 4-6) albuterol sulfate 90 mcg/actuation 2 puff inhalation Q6H PRN 05/29/23 08/06/24 aerosol inhaler Shortness Of Breath Or Wheezing levothyroxine 50 mcg tablet 50 mcg PO DAILY@0600 05/29/23 08/06/24 escitalopram oxalate 10 mg tablet 10 mg PO DAILY 07/15/24 08/06/24 furosemide 40 mg tablet 40 mg PO DAILY 07/15/24 08/06/24 Previous Rx's ?Medication ?Instructions ?Recorded diphenoxylate-atropine 2.5 1 tab PO BID PRN diarrhea #10 tabs 08/06/24 mg-0.025 mg tablet (Lomotil) amoxicillin 875 mg-potassium 1 tab PO BID #20 tabs 08/09/24 clavulanate 125 mg tablet metoprolol tartrate 25 mg tablet 25 mg PO BID #60 tabs 08/09/24 Allergies Allergy/AdvReac Type Severity Reaction Status Date / Time No Known Allergies Allergy Mild N/A Verified 08/27/24 07:35 Review of Systems 2 Constitutional: Constitutional: Reports as per [facility] Past Medical History Medical History (Updated 08/27/24 @ 11:35 by Vik Goode DO) Persistent atrial fibrillation Class 1 obesity Essential hypertension Primary osteoarthritis involving multiple joints Anxiety GERD (gastroesophageal reflux disease) Carpal tunnel syndrome Stroke Hypothyroidism Arthritis HTN (hypertension) Asthma Obesity Chronic pain Surgical History History of left shoulder replacement History of right shoulder replacement S/P panniculectomy Hx of cholecystectomy S/P foot surgery, right History of bladder surgery History of tonsillectomy Family History Family History Father CVD (cardiovascular disease) Diabetes Mother CVD (cardiovascular disease) HTN (hypertension) Social History Social History Household Members: Significant [facility] Do you presently have visiting nurse or other home services: No Unable to assess alcohol history related to: Unknown Alcohol intake: never Patient Tobacco Use Status: Never used Tobacco Smoked in Last 30 Days: No e-Cigarette/Vaping Use: Never Used Use of substances other than those prescribed or required for medical reasons: No Advance Directives: No Advance Directives Information Provided: No Advance Directives Date on File: 06/02/23 Do you have a plan to hurt others: No Plan service: No Current occupational status: retired Physical Exam 2 Vital Signs: Vital Signs: Last Vital Signs Temp 97.5 F 08/27/24 11:28 Pulse 90 08/27/24 11:28 Resp 20 08/27/24 11:28 BP 104/55 L 08/27/24 11:28 Pulse Ox 94 08/27/24 11:28 O2 Del Method Room Air 08/27/24 11:28 BMI result Body Mass Index 30.0 Const: Other: * Gen: ?Shaky, slightly pale * HEENT: PERRLA, EOMI, MMM, * Neck: No meningismus, suboccipital tenderness * CV: RRR, no obvious murmurs appreciated * Resp: ?No wheezing rales rhonchi no stridor moving air well * Abd: ?Bowel sounds are present, no tenderness no rebound no rigidity * MSK: FROM, strength 5/5 all extremities * Skin: Warm, dry, intact, * Neuro: ?Alert and oriented x3, moving upper and lower extremities symmetrically, no obvious facial asymmetry noted Medications Administered Discontinued Medications Generic Name Dose Route Start Last Admin Trade Name Odilia PRN Reason Stop Dose Admin Ceftriaxone Sodium 1 gm 08/27/24 10:02 08/27/24 10:53 Ceftriaxone Sodium 1 Gm Vial IVPUSH 08/27/24 10:03 1 gm ONCE ONE Administration Sodium Chloride 1,000 mls @ 999 mls/hr 08/27/24 09:00 08/27/24 10:47 Ns IV 08/27/24 10:00 Infused .Q1H1M CORY Infusion Morphine Sulfate 4 mg 08/27/24 08:47 08/27/24 09:20 Morphine Sulfate 4 Mg/Ml Cartridge IVPUSH 08/27/24 08:48 4 mg ONCE ONE Administration Protocol Medical Decision Making Medical Decision Making MDM Narrative: 09:08 some of the considerations for workup as below, she is presenting with nonspecific findings and symptoms she is having neck pain lots of tenderness in the suboccipital area, no meningismus she is nonfebrile, this is not the headache to be associated with subarachnoid hemorrhage such as the worst headache of her life or sudden onset, she did have UTI and C diff prefer inches bacteremia and so I am going to expand my workup and her disposition to be determined. Reassuringly at the time my initial evaluation she is nonfebrile, benign abdominal exam I did not feel that the there is any need for CT of the abdomen at this time and I do not feel that she requires an LP at this time. 10:00 currently patient is resting after morphine, her heart rate came down to 90s, she is breathing comfortably, workup thus far revealed UTI from UA on 08/25, I will see how she is doing after IV fluids, given her recent admission, discharged with antibiotics, may readmit may try outpatient treatment as well, her cultures showed pansensitive E coli and so should be resistant to multiple antibiotics. And obtain additional history, patient had this urinalysis obtained at her PCP's office and just took the 1st dose of cephalexin yesterday so she received a full dose for today and she will continue antibiotics starting tomorrow. Differential Diagnosis Differential Diagnoses: The differential diagnosis associated with the presentation includes Bacteremia, viral infection, dehydration, UTI, pneumonia, meningitis hiatus, encephalitis Admission/Observation Consideration of admission/observation: Escalation of care including admission/observation considered Lab Data MDM Lab Attestation statement: I reviewed the patient's lab results. 08/27/24 08:36 08/27/24 08:36 Labs: Lab Results 08/27/24 08/27/24 08/27/24 Range/Units 08:36 09:49 09:50 WBC 8.3 (4.8-10.8) X10*3/uL RBC 4.43 (4.20-5.50) X10*6/uL Hgb 11.9 L (12.0-16.0) g/dl Hct 38.1 (37.0-47.0) % MCV 86.0 (80.0-98.0) fL MCH 26.9 L (27.0-33.0) pg MCHC 31.2 (31.0-35.0) g/dl RDW 15.0 (11.0-16.0) % Plt Count 180 (160-400) X10*3/uL MPV 10.1 (9.4-12.3) fL Immature Gran % (Auto) 0.4 (0.0-0.4) % Neut % (Auto) 72.0 (45-73) % Lymph % (Auto) 14.1 L (20-40) % [facility] % (Auto) 12.4 H (2-11) % Eos % (Auto) 0.5 (0-4) % Baso % (Auto) 0.6 (0-2) % Lymph # (Auto) 1.2 (1.2-4.9) X10*3/uL [facility] # (Auto) 1.0 (0.1-1.2) X10*3/uL Eos # (Auto) 0.0 (0.0-0.4) X10*3/uL Baso # (Auto) 0.1 (0.0-0.2) X10*3/uL Abs Immat Gran (auto) 0.03 (0.00-0.03) X10*3/uL Absolute Neuts (auto) 6.0 (2.0-8.3) x10*3/uL Absolute Nucleated RBC 0.000 (0.0-0.012) X10*3/uL Nucleated RBC % (auto) 0.0 (0.0-0.2) /100WBC PT 22.8 H D (10.9-12.4) SEC INR 2.0 H (0.9-1.1) VBG pH (7.32-7.43) VBG pCO2 mmHg VBG pO2 mmHg VBG HCO3 (22-26) mmol/L VBG O2 Saturation % VBG Base Excess mmol/L Sodium 138 (135-145) mmol/L Potassium 3.4 (3.3-5.1) mmol/L Chloride 92 L (96-108) mmol/L Carbon Dioxide 32 H (22-29) mmol/L Anion Gap 17 (12-20) BUN 26 H (9-16) mg/dL Creatinine 1.18 (0.5-1.4) mg/dL Estim Creat Clear Calc 42.8 Estimated GFR 45 Random Glucose 92 (60-115) mg/dL Calcium 10.5 H D (8.4-10.2) mg/dL Magnesium 1.9 (1.6-2.6) mg/dL Total Bilirubin 0.9 (0.0-1.0) mg/dL AST 35 H (5-31) U/L ALT 11 (0-31) U/L Alkaline Phosphatase 68 (39-117) U/L C-Reactive Protein 0.96 H (< or = 0.50) mg/dL C-React Prot High Sens Cancelled Total Protein 7.7 (6.5-8.0) g/dL Albumin 4.2 (3.5-5.0) g/dL Hold Yellow Top See Note Influenza Type A (PCR) NEGATIVE (Negative) Influenza Type B (PCR) NEGATIVE (Negative) RSV RNA Qual (PCR) NEGATIVE (Negative) SARS-CoV-2 RNA (RT-PCR) NEGATIVE (Negative) 08/27/24 Range/Units 09:56 WBC (4.8-10.8) X10*3/uL RBC (4.20-5.50) X10*6/uL Hgb (12.0-16.0) g/dl Hct (37.0-47.0) % MCV (80.0-98.0) fL MCH (27.0-33.0) pg MCHC (31.0-35.0) g/dl RDW (11.0-16.0) % Plt Count (160-400) X10*3/uL MPV (9.4-12.3) fL Immature Gran % (Auto) (0.0-0.4) % Neut % (Auto) (45-73) % Lymph % (Auto) (20-40) % [facility] % (Auto) (2-11) % Eos % (Auto) (0-4) % Baso % (Auto) (0-2) % Lymph # (Auto) (1.2-4.9) X10*3/uL [facility] # (Auto) (0.1-1.2) X10*3/uL Eos # (Auto) (0.0-0.4) X10*3/uL Baso # (Auto) (0.0-0.2) X10*3/uL Abs Immat Gran (auto) (0.00-0.03) X10*3/uL Absolute Neuts (auto) (2.0-8.3) x10*3/uL Absolute Nucleated RBC (0.0-0.012) X10*3/uL Nucleated RBC % (auto) (0.0-0.2) /100WBC PT (10.9-12.4) SEC INR (0.9-1.1) VBG pH 7.55 H (7.32-7.43) VBG pCO2 41 mmHg VBG pO2 61 mmHg VBG HCO3 36 H (22-26) mmol/L VBG O2 Saturation 88.0 % VBG Base Excess 12.9 mmol/L Sodium (135-145) mmol/L Potassium (3.3-5.1) mmol/L Chloride (96-108) mmol/L Carbon Dioxide (22-29) mmol/L Anion Gap (12-20) BUN (9-16) mg/dL Creatinine (0.5-1.4) mg/dL Estim Creat Clear Calc Estimated GFR Random Glucose (60-115) mg/dL Calcium (8.4-10.2) mg/dL Magnesium (1.6-2.6) mg/dL Total Bilirubin (0.0-1.0) mg/dL AST (5-31) U/L ALT (0-31) U/L Alkaline Phosphatase (39-117) U/L C-Reactive Protein (< or = 0.50) mg/dL C-React Prot High Sens Total Protein (6.5-8.0) g/dL Albumin (3.5-5.0) g/dL Hold Yellow Top Influenza Type A (PCR) (Negative) Influenza Type B (PCR) (Negative) RSV RNA Qual (PCR) (Negative) SARS-CoV-2 RNA (RT-PCR) (Negative) Independent Interpretation I performed an independent interpretation of an: EKG (107 AFib, no ST-T changes to suspect underlying cardiac ischemia) Radiology Impression Discussion of test interpretation with radiology: I have reviewed the radiologist's reading. Radiologist Impression: IMPRESSION: 1. No acute findings. Discharge Plan Discharge Clinical Impression: Acute UTI, Acute neck pain Patient Disposition: Home, Self-Care Additional Instructions: Continue antibiotics prescribed by PCP starting tomorrow, you received antibiotics for the day, the rest of the workup today including blood work, urinalysis, swab has been reassuring, you can take Tylenol 975 mg, heat packs to the area of the neck pain, make sure that you have good support both on the mitral side and pillow, spiking fevers worsening symptoms come back to the ER Prescriptions: No Action hydrocodone-acetaminophen 5-325 mg tablet 1 tab PO BID PRN (Reason: Pain (Scale Score 4-6)) yonkytqbkl-vgdznssnmpfyn-ijtd 50-325-40 mg tablet 1 tab PO Q6H PRN (Reason: Migraine Headache) furosemide 40 mg tablet 40 mg PO DAILY escitalopram oxalate 10 mg tablet 10 mg PO DAILY diphenoxylate-atropine [Lomotil] 2.5-0.025 mg tablet 1 tab PO BID PRN (Reason: diarrhea) Qty: 10 0RF metoprolol tartrate 25 mg Tablet 25 mg PO BID Qty: 60 0RF Protocol: Hold for SBP/HR < HOLD for SBP < : 90 HOLD for HR < : 60 amoxicillin-pot clavulanate 875-125 mg tablet 1 tab PO BID Qty: 20 0RF levothyroxine 50 mcg tablet 50 mcg PO DAILY@0600 albuterol sulfate 90 mcg/actuation HFA aerosol inhaler 2 puff inhalation Q6H PRN (Reason: Shortness Of Breath Or Wheezing) Prempro 0.625-2.5 mg tablet 1 tab PO DAILY Eliquis 5 mg tablet 5 mg PO BID atorvastatin 40 mg tablet 40 mg PO BEDTIME Referrals: Rai Fabian MD [Primary Care Provider] - Print Language: Citizen Of [place]
[2024-08-27 08:45] LABS: MANUAL DIFF FLAG NO
[2024-08-27 08:51] LABS: Basophils Absolute Auto 0.1 X10*3/uL (0.0-0.2); Basophils Percent Auto 0.6 % (0-2); Eosinophils Percent Auto 0.5 % (0-4); Hematocrit 38.1 % (37.0-47.0); Hemoglobin 11.9 g/dl (12.0-16.0); Imm Gran Abs Auto 0.03 X10*3/uL (0.00-0.03); Imm Gran Pct Auto 0.4 % (0.0-0.4); Lymphocytes Absolute Auto 1.2 X10*3/uL (1.2-4.9); Lymphocytes Percent Auto 14.1 % (20-40); Mean Corpuscular HGB Conc 31.2 g/dl (31.0-35.0); Mean Corpuscular Hemoglobin 26.9 pg (27.0-33.0); Mean Platelet Volume 10.1 fL (9.4-12.3); Monocytes Percent Auto 12.4 % (2-11); Platelet Count 180 X10*3/uL (160-400); Red Blood Count 4.43 X10*6/uL (4.20-5.50); White Blood Count 8.3 X10*3/uL (4.8-10.8)
[2024-08-27 08:56] LABS: Prothrombin Time 22.8 SEC (10.9-12.4)
[2024-08-27 09:03] LABS: Alanine Aminotransferase 11 U/L (0-31); Albumin Level 4.2 g/dL (3.5-5.0); Alkaline Phosphatase 68 U/L (39-117); Anion Gap 17 (12-20); Aspartate Amino Transferase 35 U/L (5-31); Bilirubin Total 0.9 mg/dL (0.0-1.0); Blood Urea Nitrogen 26 mg/dL (9-16); Calcium 10.5 mg/dL (8.4-10.2); Carbon Dioxide 32 mmol/L (22-29); Chloride 92 mmol/L (96-108); Creatinine Clr Calc Pharmacy 42.8; Estimated Glomerular Filt Rate 45; Glucose Random 92 mg/dL (60-115); Magnesium 1.9 mg/dL (1.6-2.6); Potassium 3.4 mmol/L (3.3-5.1); Sodium 138 mmol/L (135-145); Total Protein 7.7 g/dL (6.5-8.0)
[2024-08-27] MEDS: 0.9 % Sodium Chloride 1,000 ML 999 ML IV (09:19)
[2024-08-27] MEDS: Morphine Sulfate 4 MG/ML CARTRIDGE IVPUSH (09:20)
[2024-08-27 09:22] VITALS: BP 119/80; PULSE 105; RESP 18; O2SAT 97
[2024-08-27 09:27] LABS: Influenza A PCR NEGATIVE (Negative); Influenza B PCR NEGATIVE (Negative); Resp Syncy Virus RNA Qual PCR NEGATIVE (Negative); SARS COV2 PCR INHOUSE NEGATIVE (Negative)
--- NOTE | 2024-08-27 09:29 | PC.NURSE ---
multiple attempts made to obtain blood work, call placed to phlebotomy for further assistance.
[2024-08-27 10:08] LABS: VBG Base Excess 12.9 mmol/L; VBG HCO3 36 mmol/L (22-26); VBG pCO2 41 mmHg; VBG pH 7.55 (7.32-7.43); VBG pO2 61 mmHg
[2024-08-27 10:14] LABS: Venous Blood Gas Refer to POC result
[2024-08-27] MEDS: cefTRIAXone sodium 1 GM VIAL IVPUSH (10:53)
[2024-08-27 10:56] LABS: C Reactive Protein 0.96 mg/dL (< or = 0.50)
[2024-08-27 11:28] VITALS: BP 104/55; PULSE 90; RESP 20; TEMP 36.4; O2SAT 94
[2024-08-27 11:39] LABS: Appearance Urine Turbid; Color Urine Yellow; Glucose Urine UA Negative (Negative); Leukocyte Esterase Urine Large (3+) (Negative); Nitrite Urine Positive (Negative); UMIC TRIGGER UACC YES; Urine Blood Trace (Negative); Urine Ketones Trace mg/dL (Negative); Urine Protein 30 (1+) mg/dL (Neg-Trace)
[2024-08-27 11:54] LABS: Bacteria Urine 4+ (None Seen); Hyaline Casts Urine 0-2 /LPF (0-2); RBC Urine 0-2 /HPF (0-2); Squamous Epithelial Cell Urine >20 /HPF (0-2); UACC Culture Trigger YES; WBC Urine 21-50 /HPF (0-5)
[2024-08-27 11:59] VITALS: BP 104/55; PULSE 90; RESP 20; TEMP 36.4; O2SAT 94
== END 2024-08-27 12:22 | disposition home or self-care (01) ==
PROVIDERS: Emergency Provider Emergency Medicine; PCP Internal Medicine
DX: N39.0 Urinary tract infection, site not specified (principal); M54.2 Cervicalgia; R53.1 Weakness; R51.9 Headache, unspecified; I10 Essential (primary) hypertension; J45.909 Unspecified asthma, uncomplicated; E03.9 Hypothyroidism, unspecified; I48.19 Other persistent atrial fibrillation; Z79.01 Long term (current) use of anticoagulants; Z03.818 Encounter for observation for suspected exposure to other biological agents ruled out
CPT/HCPCS: 0241U; 36415; 71046; 80053; 81001; 82803; 83735; 85025; 85610; 86140; 86141; 87040; 87086; 87088; 87186; 93005; 96361; 96374; 96375; 99284; 99285; J0696; J2270

== ENCOUNTER → 2024-08-27 07:39 | Outpatient (BNV) | payer MEDICARE, SELFPAY | PROVIDERS: Emergency Provider Emergency Medicine; PCP Internal Medicine; Visit Provider Internal Medicine | DX: I48.91 Unspecified atrial fibrillation (principal) | CPT/HCPCS: 93010 ==

== ENCOUNTER → 2024-08-27 08:48 | Outpatient (BNV) | payer MEDICARE, SELFPAY | PROVIDERS: Emergency Provider Emergency Medicine; PCP Internal Medicine; Visit Provider Radiology Diagnostic Radiology | DX: R53.1 Weakness (principal) | CPT/HCPCS: 71046 ==

== ENCOUNTER 2024-09-06 10:02 | Outpatient (REF) | payer MEDICARE, SELFPAY ==
[2024-09-06 10:24] LABS: Appearance Urine Clear; Color Urine Yellow; Glucose Urine UA Negative (Negative); Leukocyte Esterase Urine Moderate (2+) (Negative); Nitrite Urine Negative (Negative); PH 5.5 (5.0-9.0); Specific Gravity - Urine 1.015 (1.005-1.025); UMIC TRIGGER UACC YES; Urine Blood Small (1+) (Negative); Urine Ketones Negative (Negative); Urine Protein Negative (Neg-Trace)
[2024-09-06 10:41] LABS: Bacteria Urine 1+ (None Seen); UACC Culture Trigger YES
--- OUTSIDE RECORDS SUMMARY | 2024-09-06 11:22 | XMS_ITS ---
Author Organization Rai Fabian MD Address [address] [place] [address] [phone] Support Name Relationship Address Phone Rai Fabian Caregiver [address] [facility] [address] [place] [address] [phone] Nicole Díaz Caregiver [facility] [address] [place] [address] [phone] Raheel Morley Caregiver [address] [facility] [address] [place] [address] [phone] Travis Taylor Caregiver [address] [facility] [address] [place] [address] [phone] May Landis Caregiver [address] [facility] [address] [facility] [address] [place] [address] [phone] DOROTHY GONZALEZ Caregiver [address] [facility] [address] [place] [address] [phone] Lele Childress Caregiver [address] [facility] [address] [place] [address] [phone] BILL MEDINA Caregiver [address] [facility] [address] [place] [address] [phone] Judy Woods Caregiver [address] [facility] [address] [place] [address] [phone] CAMILLE SINGER Caregiver [address] [facility] [address] [place] [address] [phone] ANILA BATES Caregiver [address] [place] [address] [phone] TRAVIS COFFEY Emergency Contact Unknown Mandie Gonzalez Guarantor Unknown [phone] Care Team Providers Care Association Executive Name Role Phone Rai Faiban Primary Care Provider REASON FOR VISIT REFILL ONDANSETRON HCI Medications Medication SIG (Take, Route, Fr equency, Duration) Notes Start Date End Date Status Ondansetron HCl 4 MG TAKE 1 TABLET BY MO UTH DAILY NEEDED Orally Once a day for 30 days Active Encounters Encounter Location Date Provider Diagnosis Rai Fabian MD [address] [place] [address] [place] [address] [phone] 08/29/2024 Rai Fabian Plan Of Treatment Medication Medication Name Sig Start Date Stop Date Notes Ondansetron HCl 4 MG TAKE 1 TABLET BY MO UT DAILY NEEDED Orally Once a day for 30 days Next Appt Details Provider Name:Rai trotter, 09/09/2024 01:45:00 PM, [address] [place] [address], [address], [phone], Provider Name:Rai trotter, 10/28/2024 07:45:00 AM, [address] [place] [address], [phone], Provider Name:Rai trotter, 11/04/2024 02:00:00 PM, [address] [place] [address], [address], [phone], Provider Name:Rai trotter, 05/04/2025 07:15:00 AM, [address] [place] [address], [phone], Provider Name:Rai trotter, 05/11/2025 02:30:00 PM, [address] [place] [address], [address], [phone], Progress Notes * Aaron GONZALEZOB: (74 yo F)Acc No.[id number]:08/29/2024 Patient:Mandie MENON :1950???Age:74 Y???Sex:Female Address:[address] [place] [address] [place] [id number] * Refills? Refill Ondansetron HCl Tablet, 4 MG, Orally, 30, TAKE 1 TABLET BY MOUTH DAILY NEEDED, Once a day, 30 days, Refills=0 * true * Date:? Generated for Sienna darby/Dash/Ana Lilia on:?09/06/2024 11:22 AM EDT
== END 2024-09-06 10:03 | disposition home or self-care (01) ==
LOC: HO.LNP 10:02
PROVIDERS: Visit Provider Internal Medicine
DX: N39.0 Urinary tract infection, site not specified (principal)
CPT/HCPCS: 81001; 87086

== ENCOUNTER 2024-10-10 14:06 | Inpatient (IN) | payer MEDICARE, SELFPAY ==
--- OUTSIDE RECORDS SUMMARY | 2024-09-15 04:32 | XMS_ITS ---
Author Organization Rai Fabian MD Address [address] [place] [address] [phone] Support Name Relationship Address Phone Rai Fabian Caregiver [address] [facility] [address] [facility] [address] [place] [address] [phone] Nicole Díaz Caregiver [facility] [address] [place] [address] [phone] Raheel Morley Caregiver [address] [facility] [address] [place] [address] [phone] Travis Taylor Caregiver [address] [facility] [address] [facility] [address] [place] [address] [phone] May Landis Caregiver [address] [facility] [address] [place] [address] [phone] DOROTHY GONZALEZ Caregiver [address] [facility] [address] [facility] [address] [place] [address] [phone] Lele Childress Caregiver [facility] [address] [address] [place] [address] [phone] BILL MEDINA Caregiver [address] [facility] [address] [place] [address] [phone] Judy Woods Caregiver [address] [facility] [address] [facility] [address] [place] [address] [phone] CAMILLE SINGER Caregiver [address] [facility] [address] [place] [address] [phone] ANILA BATES Caregiver [address] [place] [address] [phone] TRAVIS COFFEY Emergency Contact Unknown [phone] Mandie Gonzalez Guarantor Unknown [phone] Care Team Providers Care Battery Builder Name Role Phone Marisela Fabiann Primary Care Provider [phone] REASON FOR VISIT ER visit rec'd Encounters Encounter Location Date Provider Diagnosis Rai Fabian MD [address] [place] [address] [address] [place] [phone] 09/15/2024 Rai Fabian Plan Of Treatment Next Appt Details Provider Name:Rai Colin iekorey, 10/28/2024 07:45:00 AM, [address] [place] [address], [address], [place], [phone], Provider Name:Rai trotter, 11/04/2024 02:00:00 PM, [address] [place] [address], [place] [address], [place], [phone], Provider Name:Rai trotter, 05/04/2025 07:15:00 AM, [address] [place] [address], Suite [facility], [place], [place], [phone], Provider Name:Rai trotter, 05/11/2025 02:30:00 PM, [address] [place] [address], [place] [address], [place], [phone], Progress Notes * Aaron GONZALEZOB: 9 (74 yo F)Acc No.[id number]:09/15/2024 Patient: Mandie FU :1950 A ge:74 Y S ex:Female Address:[address] [place] [address], [place] [address] * true * Date: Generated for Feliciai mehnaz/Dash/eTransmitting on: 0 10/10/2024 03:55 PM EDT
[2024-10-10] VITALS (11 sets, daily range): BP systolic 135–158; BP diastolic 72–88; PULSE 84–102; RESP 16–33; TEMP 36.4–36.8; O2SAT 88–96; BMI 28.0
--- NOTE | ~2024-10-10 | CT_ITS ---
CLINICAL HISTORY: 1 week of confusion - new CT head without contrast Comparison: CT/SR - CT HEAD/BRAIN WO IV CON - 08/06/24 12:21 EDT Findings: Motion and streak artifact limit evaluation. Scattered subcortical and periventricular hypoattenuation, likely in keeping with chronic small vessel ischemic disease. Parenchymal volume loss with compensatory prominence of the ventricles and CSF spaces. No acute territorial infarction, intracranial hemorrhage, midline shift or hydrocephalus. Similar small focus of encephalomalacia left parietal lobe. There is no sinus or mastoid fluid. The orbits are unremarkable. No skull fracture. IMPRESSION: 1. No acute intracranial abnormality. 2. Additional findings as described. This document has been electronically signed by: John Schuler MD on 10/10/2024 21:28:48
--- NOTE | ~2024-10-10 | XR_ITS ---
EXAMINATION: XR CHEST 2 VIEWS HISTORY: shortness of breath COMPARISON: Comparison is made with the prior examination dated 08/27/2024. FINDINGS: PA and lateral views of the chest are submitted. Again seen is moderate elevation the right hemidiaphragm. The lungs are clear. There is no pleural effusion, pneumothorax, or pulmonary vascular congestion. The heart is normal in size. There is degenerative disc disease and levoscoliosis of the spine. The patient is status post bilateral reverse total shoulder arthroplasty. XR/XR chest 2V IMPRESSION: No acute cardiopulmonary abnormality. Electronically signed by: Travis Ortiz MD 10/10/2024 02:54 PM EDT
--- NOTE | 2024-10-10 14:17 | ED_ITS ---
HPI - SOB/Dyspnea General Chief Complaint: Arrhythmia/Palpitations Stated Complaint: SOB, palpitation Time Seen by Provider: 10/10/24 15:50 Source: patient and old records reviewed Mode of arrival: ambulatory Limitations: no limitations History of Present Illness ED Provider: MAXIMUS MARQUEZ Narrative: 74 yo female with PMH of hypoxic respiratory failure, arthritis, ascending aortic aneurysm, afib on eliquis, recurrent UTIs, hypothyroidism who notes she was at [facility] until a week ago she fell was on the ground for a long time she notes her magnesium was low. She was admitted but then discharged home. She notes she cannot tell much from her stay as her DC summary was incomplete. She is here today after feeling her heart race - denies CP. They note she was short of breath last night. She denies pain or GIB symptoms, she denies fevers, cough, sputum production. She is taking all of her medications and reports she never misses her eliquis. Family notes since she came home from [facility] she is more confused and not herself. she is 88% on RA with talking but does not want to wear O2, she is now maintaing sats sitting upright [facility] stay was for hypovolemic shock and bradycardia with ICU stay on levophed, she recovered they noted she was delerious on DC. Hemoglobin 9.9 on DC MD elicited complaint: shortness of breath Pertinent past history: congestive heart failure Onset (ago): day(s) (1) Context: recent illness Timing: improved Severity: mild Exacerbating factors: lying flat and exertion Relieving factors: oxygen and upright position Known history of: congestive heart failure Associated symptoms: cough and orthopnea Treatment prior to arrival: none Related Data Home Medications ?Medication ?Instructions ?Recorded ?Confirmed apixaban 5 mg tablet (Eliquis) 5 mg PO BID 03/27/20 atorvastatin 40 mg tablet 40 mg PO BEDTIME 03/27/20 conj estrogen-medroxyprogesterone 1 tab PO DAILY 03/2708/06/24 0.625 mg-2.5 mg tablet (Prempro) yweshvucbm-fevktjxferbzj-ohfbzbug 1 tab PO Q6H PRN Gregg argenis Headache 05/13/21 08/06/24 50 mg-325 mg-40 mg tablet hydrocodone 5 mg-acetaminophen 325 1 tab PO BID PRN Pa in (Scale Score 05/13/21 08/06/24 mg tablet 4-6) albuterol sulfate 90 mcg/actuation 2 puff inhalation Q 6H PRN 05/29/23 08/06/24 aerosol inhaler Shortness Of Breath Or Wheez ing levothyroxine 50 mcg tablet 50 mcg PO DAILY@0600 05/2808/06/24 escitalopram oxalate 10 mg tablet 10 mg PO DAILY 07/1508/06/24 furosemide 40 mg tablet 40 mg PO DAILY 07/15/2407/21 Previous Rx's ?Medication ?Instructions ?Recorded diphenoxylate-atropine 2.5 1 tab PO BID PRN diarrhea # 10 tabs 08/06/24 mg-0.025 mg tablet (Lomotil) amoxicillin 875 mg-potassium 1 tab PO BID #20 tabs clavulanate 125 mg tablet metoprolol tartrate 25 mg tablet 25 mg PO BID #60 tabs 08/09/24 Allergies Allergy/AdvReac Type Severity Reaction Status Date / Time No Known Allergies Allergy Mild N/A Verified 10/10/24 14:20 Review of Systems 2 Review of Systems: Constitutional : No Fever, No Chills ENT/Mouth : No sore throat, No Rhinorrhea, No Swallowing Difficulty Eyes: No Eye Pain, No Swelling, No Redness Cardiovascular : No Chest Pain, positive SOB, No Orthopnea, no Edema Respiratory : No Cough, No Sputum, No Wheezing, positive dyspnea Gastrointestinal : No Nausea, No Vomiting, No Diarrhea, No abdominal Pain, No Hematochezia, No Melena Genitourinary : No Dysuria, No Urinary Frequency, No Hematuria Musculoskeletal : No joint pain, No Myalgias Skin : No Skin Lesions, No rash All other systems reviewed and are negative [facility] Past Medical History Attestation statement: The following information was validated with the patient. Source: old records reviewed Medical History Persistent atrial fibrillation Class 1 obesity Essential hypertension Primary osteoarthritis involving multiple joints Anxiety GERD (gastroesophageal reflux disease) Carpal tunnel syndrome Stroke Hypothyroidism Arthritis HTN (hypertension) Asthma Obesity Chronic pain Surgical History History of left shoulder replacement History of right shoulder replacement S/P panniculectomy Hx of cholecystectomy S/P foot surgery, right History of bladder surgery History of tonsillectomy Family History Family History Father CVD (cardiovascular disease) Diabetes Mother CVD (cardiovascular disease) HTN (hypertension) Social History Social History Household Members: Significant Other Housing: Condominium Do you presently have visiting nurse or other home services: No Unable to assess alcohol history related to: Unknown Alcohol intake: never Patient Tobacco Use Status: Never used Tobacco e-Cigarette/Vaping Use: Never Used Advance Directives: Yes Advance Directives on File: Yes Advance Directives Date on File: 06/03/23 Do you have a plan to hurt others: No Plan service: No Current occupational status: retired Physical Exam 2 Vital Signs: Vital Signs: Last Vital Signs Temp 97.8 F 10/10/24 17:49 Pulse 93 10/10/24 21:19 Resp 22 H 10/10/24 21:19 BP 143/88 H 10/10/24 21:19 Pulse Ox 92 10/10/24 21:19 O2 Del Method Room Air 10/10/24 21:19 O2 Flow Rate 1 10/10/24 15:42 BMI result Body Mass Index 28.0 Appearance: Alert. Oriented X3 but needed some redirection. No acute distress. Eyes: Pupils equal, round and reactive to light. ENT: Pharynx normal. very pale conjunctiva Neck: Normal inspection. Neck supple. CVS: Normal heart rate and rhythm. Pulses normal. Respiratory: No respiratory distress. Breath sounds both bases diminished Abdomen: Soft and nontender. light brown stool Skin: Skin warm and dry. pale skin color. Extremities: No lower extremity edema. Neuro: Oriented X 3. No motor deficit. No sensory deficit. CN2-12 intact Course Course Course Narrative: This is an RME performed by Corey Lazna CNP: Additional HPI, ROS, PE not included below will be deferred to primary provider. Patient is a 74-year-old female with past medical history of osteoarthritis, atrial fibrillation CVA, hypertension, hypothyroidism, GERD, anxiety who presents emergency department for evaluation, endorses having palpitations and shortness of breath with onset last night, couldn't sleep. denies chest pain. She was sent from PCP office, was there today for follow-up after recent hospitalization at [facility] (due to ?hypokalemia and dehydration) and [facility] (discharged 1 week ago). Plan: Serum labs, ECG, CXR Reevaluation(s) Reevaluation #1: infection suspected at 5pm given + UA last culture S to cefepime I did order it Medications Administered Discontinued Medications Generic Name Dose Route Start Last Admin Trade Name Odilia PRN Reason Stop Dose Admin Acetaminophen 975 mg 10/10/24 18:01 10/10/24 19:02 Acetaminophen 325 Mg Tablet PO 10/10/24 18:02 975 mg ONCE ONE Administration Furosemide 20 mg 10/10/24 18:53 10/10/24 19:52 Furosemide 20 Mg/2 Ml Vial IVPUSH 10/10/24 18:54 20 mg ONCE ONE Administration Protocol Cefepime HCl 2 gm in 50 mls @ 100 mls/hr 10/10/24 16:19 10/10/24 18:01 Maxipime IV 10/10/24 16:48 Infused ONCE ONE Infusion Lorazepam 0.5 mg 10/10/24 19:11 10/10/24 19:52 Lorazepam 0.5 Mg Tablet PO 10/10/24 19:12 0.5 mg ONCE ONE Administration Medical Decision Making Medical Decision Making [facility] Narrative: 74 yo female with PMH of hypoxic respiratory failure, arthritis, ascending aortic aneurysm, afib on eliquis, recurrent UTIs, hypothyroidism she notes she feels fine but when I asked why she was here she stated she as a little short of breath and she felt her HR go up. She denies pain, dysuria, infectious symptoms. She has no CP. She was at the PCP office who referred her here. She denies GIB symptoms. She overall looks unwell will obtain labs, CXR, CT head given confusion, UA. Differential Diagnosis Differential Diagnoses: The differential diagnosis associated with the presentation includes CHF, doubt VTE has not missed any eliquis, anemia lyte abnormality possible mass she has no infectious symptoms Admission/Observation Consideration of admission/observation: Escalation of care including admission/observation considered admit for UTI, monitor anemia, IV lasix Consult Healthcare Provider Management of the patient was discussed with: Hospitalist (will admit) Lab Data [facility] Lab Attestation statement: I reviewed the patient's lab results. 10/10/24 14:49 10/10/24 14:49 Labs: Lab Results 10/10/24 10/10/24 10/10/24 Range/Units 13:00 14:49 16:49 WBC 5.4 (4.8-10.8) X10*3/uL RBC 3.53 L D (4.20-5.50) X10*6/uL Hgb 9.5 L D (12.0-16.0) g/dl Hct 30.4 L D (37.0-47.0) % MCV 86.1 (80.0-98.0) fL MCH 26.9 L (27.0-33.0) pg MCHC 31.3 (31.0-35.0) g/dl RDW 14.9 (11.0-16.0) % Plt Count 159 L (160-400) X10*3/uL MPV 10.3 (9.4-12.3) fL Immature Gran % (Auto) 0.2 (0.0-0.4) % Neut % (Auto) 62.5 (45-73) % Lymph % (Auto) 22.9 (20-40) % Clarke % (Auto) 11.6 H (2-11) % Eos % (Auto) 2.2 (0-4) % Baso % (Auto) 0.6 (0-2) % Lymph # (Auto) 1.2 (1.2-4.9) X10*3/uL Clarke # (Auto) 0.6 (0.1-1.2) X10*3/uL Eos # (Auto) 0.1 (0.0-0.4) X10*3/uL Baso # (Auto) 0.0 (0.0-0.2) X10*3/uL Abs Immat Gran (auto) 0.01 (0.00-0.03) X10*3/uL Absolute Neuts (auto) 3.4 (2.0-8.3) x10*3/uL Absolute Nucleated RBC 0.000 (0.0-0.012) X10*3/uL Nucleated RBC % (auto) 0.0 (0.0-0.2) /100WBC Sodium 144 (135-145) mmol/L Potassium 4.1 D (3.3-5.1) mmol/L Chloride 104 (96-108) mmol/L Carbon Dioxide 31 H (22-29) mmol/L Anion Gap 13 (12-20) BUN 15 (9-16) mg/dL Creatinine 0.92 (0.5-1.4) mg/dL Estim Creat Clear Calc 53.0 Estimated GFR 59 Random Glucose 102 (60-115) mg/dL Lactic Acid (0.5-2.0) mmol/L Calcium 9.7 D (8.4-10.2) mg/dL Magnesium 1.9 (1.6-2.6) mg/dL Total Bilirubin 0.6 (0.0-1.0) mg/dL AST 30 (5-31) U/L ALT 14 (0-31) U/L Alkaline Phosphatase 96 (39-117) U/L Troponin I High Sens 10.4 D (<3.5-17.0) ng/L B-Natriuretic Peptide 798 H (<100) pg/mL Total Protein 6.6 (6.5-8.0) g/dL Albumin 3.9 (3.5-5.0) g/dL TSH 1.59 (0.32-4.0) uIU/mL Urine Color Yellow Urine Appearance Cloudy Urine pH 8.0 (5.0-9.0) Ur Specific Reubens 1.015 (1.005-1.025) Urine Protein 30 (1+) H (Neg-Trace) mg/dL Urine Glucose (UA) Negative (Negative) mg/dL Urine Ketones Negative (Negative) mg/dL Urine Blood Trace H (Negative) Urine Nitrite Positive H (Negative) Ur Leukocyte Esterase Large (3+) H (Negative) Urine RBC 6-10 H (0-2) /HPF Urine WBC >50 H (0-5) /HPF Ur Squamous Epith Cells 11-20 (0-2) /HPF Urine Bacteria 4+ (None Seen) Hyaline Casts 3-5 (0-2) /LPF Urine Yeast Present Stool Occult Blood NEGATIVE (NEGATIVE) Influenza Type A (PCR) NEGATIVE (Negative) Influenza Type B (PCR) NEGATIVE (Negative) RSV RNA Qual (PCR) NEGATIVE (Negative) SARS-CoV-2 RNA (RT-PCR) NEGATIVE (Negative) Blood Type Antibody Screen 10/10/24 Range/Units 17:08 WBC (4.8-10.8) X10*3/uL RBC (4.20-5.50) X10*6/uL Hgb (12.0-16.0) g/dl Hct (37.0-47.0) % MCV (80.0-98.0) fL MCH (27.0-33.0) pg MCHC (31.0-35.0) g/dl RDW (11.0-16.0) % Plt Count (160-400) X10*3/uL MPV (9.4-12.3) fL Immature Gran % (Auto) (0.0-0.4) % Neut % (Auto) (45-73) % Lymph % (Auto) (20-40) % Clarke % (Auto) (2-11) % Eos % (Auto) (0-4) % Baso % (Auto) (0-2) % Lymph # (Auto) (1.2-4.9) X10*3/uL Clarke # (Auto) (0.1-1.2) X10*3/uL Eos # (Auto) (0.0-0.4) X10*3/uL Baso # (Auto) (0.0-0.2) X10*3/uL Abs Immat Gran (auto) (0.00-0.03) X10*3/uL Absolute Neuts (auto) (2.0-8.3) x10*3/uL Absolute Nucleated RBC (0.0-0.012) X10*3/uL Nucleated RBC % (auto) (0.0-0.2) /100WBC Sodium (135-145) mmol/L Potassium (3.3-5.1) mmol/L Chloride (96-108) mmol/L Carbon Dioxide (22-29) mmol/L Anion Gap (12-20) BUN (9-16) mg/dL Creatinine (0.5-1.4) mg/dL Estim Creat Clear Calc Estimated GFR Random Glucose (60-115) mg/dL Lactic Acid 1.1 (0.5-2.0) mmol/L Calcium (8.4-10.2) mg/dL Magnesium (1.6-2.6) mg/dL Total Bilirubin (0.0-1.0) mg/dL AST (5-31) U/L ALT (0-31) U/L Alkaline Phosphatase (39-117) U/L Troponin I High Sens 11.1 (<3.5-17.0) ng/L B-Natriuretic Peptide (<100) pg/mL Total Protein (6.5-8.0) g/dL Albumin (3.5-5.0) g/dL TSH (0.32-4.0) uIU/mL Urine Color Urine Appearance Urine pH (5.0-9.0) Ur Specific Reubens (1.005-1.025) Urine Protein (Neg-Trace) mg/dL Urine Glucose (UA) (Negative) mg/dL Urine Ketones (Negative) mg/dL Urine Blood (Negative) Urine Nitrite (Negative) Ur Leukocyte Esterase (Negative) Urine RBC (0-2) /HPF Urine WBC (0-5) /HPF Ur Squamous Epith Cells (0-2) /HPF Urine Bacteria (None Seen) Hyaline Casts (0-2) /LPF Urine Yeast Stool Occult Blood (NEGATIVE) Influenza Type A (PCR) (Negative) Influenza Type B (PCR) (Negative) RSV RNA Qual (PCR) (Negative) SARS-CoV-2 RNA (RT-PCR) (Negative) Blood Type O Positive Antibody Screen NEGATIVE Independent Interpretation I performed an independent interpretation of an: EKG, Plain X-Ray (normal ) and CT Scan (negative) Interpretation: Rate: Rhythm: [place]: Normal P waves. Normal [place]. Normal QRS complex. ST T wave : qTC: prior studies: The study has been interpreted contemporaneously by me. . Radiology Impression Discussion of test interpretation with radiology: I have reviewed the radiologist's reading. Independent Historian Clinical information obtained from an independent historian. History obtained from or confirmed by: Friend External Record Review External record reviewed: Inpatient record and Outpatient record Discharge Plan Discharge Clinical Impression: Weakness, Weakness generalized CHF (congestive heart failure) Qualifiers: Heart failure type: unspecified Heart failure chronicity: unspecified Qualified Code(s): I50.9 - Heart failure, unspecified Patient Disposition: Admitted As Inpatient Print Language: Hebrew
--- NOTE | 2024-10-10 14:22 | ECG_ITS ---
Test Reason : shortness of breath Blood Pressure : */* mmHG Vent. Rate : 94 BPM Atrial Rate : * BPM P-R Int : * ms QRS Dur : 80 ms QT Int : 376 ms P-R-T Axes : * 13 265 degrees QTcB Int : 470 ms Atrial fibrillation Septal infarct , age undetermined ST & T wave abnormality, consider inferior ischemia ST & T wave abnormality, consider anterolateral ischemia Abnormal ECG When compared with ECG of 27-Aug-2024 07:46, Septal infarct is now Present Inverted T waves have replaced nonspecific T wave abnormality in Anterolateral leads Referred By: Anneliese Lanza Electronically Signed By: Matthew Ruiz
--- NOTE | 2024-10-10 14:40 | MHC.EDTECH ---
pt taken to xray, when return ekg will be taken
[2024-10-10 15:05] LABS: MANUAL DIFF FLAG NO
[2024-10-10 15:11] LABS: Hematocrit 30.4 % (37.0-47.0); Hemoglobin 9.5 g/dl (12.0-16.0); Imm Gran Abs Auto 0.01 X10*3/uL (0.00-0.03); Imm Gran Pct Auto 0.2 % (0.0-0.4); Lymphocytes Absolute Auto 1.2 X10*3/uL (1.2-4.9); Mean Corpuscular HGB Conc 31.3 g/dl (31.0-35.0); Mean Corpuscular Hemoglobin 26.9 pg (27.0-33.0); Mean Corpuscular Volume 86.1 fL (80.0-98.0); NRBC Abs Auto 0.000 X10*3/uL (0.0-0.012); NRBC Pct Auto 0.0 /100WBC (0.0-0.2); Platelet Count 159 X10*3/uL (160-400); Red Blood Count 3.53 X10*6/uL (4.20-5.50); White Blood Count 5.4 X10*3/uL (4.8-10.8)
[2024-10-10 15:31] LABS: Alanine Aminotransferase 14 U/L (0-31); Albumin Level 3.9 g/dL (3.5-5.0); Alkaline Phosphatase 96 U/L (39-117); Anion Gap 13 (12-20); Aspartate Amino Transferase 30 U/L (5-31); Blood Urea Nitrogen 15 mg/dL (9-16); Calcium 9.7 mg/dL (8.4-10.2); Carbon Dioxide 31 mmol/L (22-29); Chloride 104 mmol/L (96-108); Creatinine Clr Calc Pharmacy 53.0; Estimated Glomerular Filt Rate 59; Magnesium 1.9 mg/dL (1.6-2.6); Potassium 4.1 mmol/L (3.3-5.1); Sodium 144 mmol/L (135-145); Total Protein 6.6 g/dL (6.5-8.0)
[2024-10-10 15:36] LABS: B Type Natriuretic Peptide 798 pg/mL (<100)
[2024-10-10 15:38] LABS: Troponin-I High Sensitivity 10.4 ng/L (<3.5-17.0)
[2024-10-10 15:46] LABS: Resp Syncy Virus RNA Qual PCR NEGATIVE (Negative); SARS COV2 PCR INHOUSE NEGATIVE (Negative)
--- NOTE | 2024-10-10 15:48 | PC.NURSE ---
Pt coming in today with reports of palpitations, and worsening SOB when laying even when she lays up with pillows. Pt able to talk in full sentences, but does have moments of desat into 87-88, 1L NC applied with good effect. Awaiting labs/ provider grape picker at this time. Call tate withn reach, pt uses walker at baseline but requested bedside commode at this time as she is feeling weaker today
--- OUTSIDE RECORDS SUMMARY | 2024-10-10 15:56 | XMS_ITS | Encounter Summary ---
Author Organization [facility] Address [address] [place] [address] Care Team Providers Care Coach Tour Driver Name Role Phone Luanne Card MD Primary Care Provider + Encounter Details Date Type Department Care Team (Late st Contact Info) Description 09/21/2024 Lab Requisition [facility] [address] [place] [address] Luanne Card MD [address] [address] Chronic kidney disease, stage 3 unspecified (CMS/HCC V24, CMS/HCC V28); Hypo-osmolality and hyponatremia Social History Tobacco Use Types Packs/Day Years Used Date Smoking Tobacco: Never Assessed Comments Unknown Sex and Gender Information Value Date Recorded Sex Assigned at Not on file Legal Sex Female 7:41 AM EST Gender Identity Not on file Sexual Orientation Not on file documented as of this encounter Plan of Treatment Not on file documented as of this encounter Procedures Procedure Name Priority Date/Time Associated Diagnosis Comments BASIC METABOLIC PANEL Routine 09/21/2024 5:18 AM EDT Chronic kidney disease, stage 3 unspecified (CMS/HCC V24, CMS/HCC V28) Hypo-osmolality and hyponatremia documented in this encounter Results * (ABNORMAL) Basic metabolic panel (09/21/2024 5:18 AM EDT) Sodium 136 133 - 145 mmol/L LAB CHEMISTRY METHOD 09/21/2024 7:01 AM EDT [facility] Potassium 3.8 3.5 - 5.5 mmol/L LAB CHEMISTRY METHOD 09/21/2024 7:01 AM [facility] Chloride 98 96 - 110 mmol/L LAB CHEMISTRY METHOD 09/21/2024 7:01 AM [facility] CO2 35(H) 21 - 32 mmol/L LAB CHEMISTRY METHOD 09/21/2024 7:01 AM [facility] Anion Gap 3 3 - 11 LAB CHEMISTRY METHOD 09/21/2024 7:01 AM [facility] Glucose 73 70 - 100 mg/dL LAB CHEMISTRY METHOD 09/21/2024 7:01 AM [facility] BUN 18 5 - 25 mg/dL LAB CHEMISTRY METHOD 09/21/2024 7:01 AM [facility] Creatinine 1.05 0.50 - 1.10 mg/dL LAB CHEMISTRY METHOD 09/21/2024 7:01 AM [facility] eGFR 55(L) >=60 mL/min/1. 73m2 LAB CHEMISTRY METHOD 09/21/2024 7:01 AM [facility] Comment:Calculation based on the Chronic Kidney Disease Epidemiology Collaboration (CKD-EPI) equation refit without adjustment for race. BUN/Creatinine Ratio 17.1 LAB CHEMISTRY METHOD 09/21/2024 7:01 AM [facility] Calcium 9.4 8.5 - 10.5 mg/dL LAB CHEMISTRY METHOD 09/21/2024 7:01 AM [facility] Blood Venous blood specimen / Unknown Venipuncture / Unknown 09/21/2024 5:18 AM EDT 09/21/2024 6:30 AM EDT us Luanne Card MD LAB BLOOD ORDERABLES Fin al Result [facility] [address] [place] [address], documented in this encounter Visit Diagnoses Diagnosis Chronic kidney disease, stage 3 unspecified (CMS/[facility] V24, CMS/[facility] V28) Hypo-osmolality and hyponatremia documented in this encounter Additional Health Concerns Infection Onset Date Last Indicated Resolved Time C. difficile Rule-Out 09/23/2024 09/23/20242024 11:33 AM EDT documented as of this encounter Care Teams Coach Tour Driver Relationship Specialty Start Date End Date Luanne Card MD [address] [place] [address] PCP - General Family Medicine 09/14/24 documented as of this encounter
--- OUTSIDE RECORDS SUMMARY | 2024-10-10 15:56 | XMS_ITS | Patient Health Record ---
Author Organization [facility] Address [address] [place] [address] Care Team Providers Care Hand Tool Filer Name Role Phone Rai Fabian MD Primary Care Provider Travis Perez Unavailable [phone] Allergies No Known Allergies Results Component Value Reference Range Notes GI PANEL Reviewed date:08/11/2024 11:14:03 AM Interpretation: Performing Lab:[facility], [address] [place] [id number] Notes/Report: Campylobacter Not Detected Not Detect. Plesiomonas [...] is performed by Multiplexed PCR, utilizing the Amiare Array. Reason For Referral No Information Medications [...] 25 MG Oral for 90 Ac tive Sujlwhlhwr-ZGAT-Lewowgxw 50-325-40 MG Oral for 30 Active HYDROcodone-Acetaminophen [...] Problem Status W/U Status Risk Notes Problem 740508965 Encounter for screening for malignant neoplasm of colon (Z12.11) Active confirmed Problem 558616980 History of adenomatous polyp of colon (Z86.010) Active confirmed Problem Diverticular disease of colon (202116458) Diverticulosis of large intestine without perforation or abscess without bleeding (K57.30) Active confirmed Problem 695575023 Irritable bowel syndrome with diarrhea (K58.0) Active confirmed Problem Melena (1404241) Melena (K92.1) Active confirme d Problem Iron deficiency anemia (62345718) Iron deficiency anemia (D50.9) Active confirmed Problem Gastritis (5788270) Gastritis (K29.70) Active confirmed Problem 13703097 Iron deficiency anemia, unspecified iron deficiency anemia type (D50.9) Active confirmed Problem 09823866 Diarrhea, unspecified type (R19.7) Active confirmed Problem 24012416 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) Active confirmed Problem 5008144951728 Clostridium difficile diarrhea (A04.72) Active confirmed Problem 69077468 Diarrhea of presumed infectious origin (R19.7) Active confirmed Problem 331217486834201 History of Clostridioides difficile infection (Z86.19) Active confirmed Problem Acute diarrhea (411407747) Acute diarrhea (R19.7) Active confirmed Encounters Encounter Location Date Provider Diagnosis [facility] [address] [place] [address] 08/04/2024 Travis Taylor Plan Of Treatment Pending [...] Date MEDICARE OF [place] [address] [place] [address] [id number] JAKOB BECERRIL Self - patient is the insured [employer] ATT[employer] CLAIMS [address] [place] [address] [id number] JAKOB BECERRIL Self - patient is the insured Medical (General) History Medical History History ICD Code Stroke- August 2016--no residu al--received TPA at [facility]--on Eliquis--? for Afib or SVT at the time of the CVA Hypertension Urinary incontinence Seasonal allergies Denies PA,DM,Lung disease,renal disease Hyperlipidemia Arthritis Hypothyroidism EGD in [...]
--- OUTSIDE RECORDS SUMMARY | 2024-10-10 15:57 | XMS_ITS | Patient Health Record ---
[facility] Address [address] [place] [address] Care Team Providers Care Cylinder Die Machine Helper Name Role Phone Rai Fabian MD Primary Care Provider Valente Mendoza Unavailable [phone] Allergies No Known Allergies Reason For Referral No Information Medications Medication SIG (Take, Route, Frequency, Duration) Notes Start Date End Date Status Omeprazole Active Metoprolol & Diet Manage Prod Active lipitor Active Lisinopril Active Levothyroxine Sodium 50mg 1 tablet Orall y Once a day Active hydroCHLOROthiazide Active Gabapentin 400 MG 1 capsule [address] ee times a day; Duration: 30 day(s) 04/25/2016 Active eliquis Active Celecoxib [...] Status Risk Notes Problem Acquired hallux valgus (11627212) Hallux valgus (acquired), left foot (M20.12) Active confirmed Problem Localized, primary osteoarthritis of the ankle and/or foot (327059852) Primary osteoarthrit is, right ankle and foot (M19.071) Active confirmed Problem Localized, primary osteoarthritis of the ankle and/or foot (542550368) Primary osteoarthrit is, left ankle and foot (M19.072) Active confirmed Problem Acquired hallux valgus (09635803) Hallux valgus (acquired), right foot (M20.11) Active confirmed Problem Acquired hammer toe of right foot (5289820914464083) Other hammer toe(s) (acquired), right foot (M20.41) Active confirmed Problem Acquired hammer toe of left foot (2743707478492816) Other hammer toe(s) (acquired), left foot (M20.42) Active confirmed Plan Of Treatment Pending Test Test Name Order Date X ray : Ankle, left 2V 02/12/2021 X ray : Foot, left 2V 06/25/2015 X ray : Foot, right 2V 06/25/2015 X ray : Foot, left 3V 02/12/2021 X ray : Foot, right 3V 04/28/2016 [id number]-[id number] NAIL, 1-5 08/16/2014, J0702- INJECT or DRAIN, JOINT/BUR SA 09/27/2018, J0702- INJECT or DRAIN, JOINT/BUR SA 03/25/2019, J0702- INJECT or DRAIN, JOINT/BUR SA 02/12/2021, J0702- INJECT or DRAIN, JOINT/BUR SA 06/12/2021, J0702- INJECT or DRAIN, JOINT/BUR SA 10/03/2019, J0702- INJECT or DRAIN, JOINT/BUR SA 09/03/2020, J0702- INJECT or DRAIN, JOINT/BUR SA 12/07/2020, R5403-WCGND/INJECT, JOINT/BURSA 0 12/07/2020, W9494-HRVEJ/INJECT, JOINT/BURSA 0 10/03/2019, L6912-AUZZG/INJECT, JOINT/BURSA 0 06/12/2021, K1582-OJFMG/INJECT, JOINT/BURSA 0 03/25/2019, S3788-BOLTE/INJECT, JOINT/BURSA 0 09/27/2018, S9910-RVTBH/INJECT, JOINT/BURSA 0 12/01/2016, H2904-STCMV/INJECT, JOINT/BURSA 1 04/18/201669415, O6957-KLZBY/INJECT, JOINT/BURSA 0 2018 84152- Ganglion Cyst Injection/Aspiratio n 10/03/2019 67515, J0702- Neuroma/Injection 02/17/20 17 81409, J0702- Neuroma/Injection 08/06/19 16 82848, J0702- Neuroma/Injection 04/03/19 17 56434, J0702- Neuroma/Injection 07/16/19 17 60432, J0702- Neuroma/Injection 09/04/19 17 33548, J0702- Neuroma/Injection 12/02/19 17 Insurance Providers Payer Name Payer Address Payer Phone Subscriber Number Group Number Insured Name Patient Relationship to Insured Coverage Start Date Coverage End Date [employer] [address] [place] [address] [id number] Mandie Gonzalez Self - patient is the insured MD Insider [address] [place] [address] [id number] Mandie Gonzalez Self - patient is the insured Medical (General) History Medical History History ICD Code Arthritis Back,Hip,and Knee pain Chicken pox Measles Mumps Hypertension Thyroid disorder Surgical History Surgery Date(Month/Year) rotator cuff tear repair 09/2013 hand/wrist 04/2012 uterus surgery 09/2010 right foot - [facility] 04/2018 RFA Back 08/31/20 R shoulder replacement 11/06/2020 Hospitalization History Reason Date(Month/Year) [facility]- chest xray [facility] [place]- UTI 1 week /Rehab 3weeks [address] [facility] DX- stroke - discharged 09/01/2016 08/28/2016
[2024-10-10 15:58] LABS: Appearance Urine Cloudy; Glucose Urine UA Negative (Negative); PH 8.0 (5.0-9.0); Specific Gravity - Urine 1.015 (1.005-1.025); UMIC TRIGGER UACC YES
[2024-10-10 16:13] LABS: UACC Culture Trigger YES
[2024-10-10 17:02] LABS: OBS Int Ctl Valid YES; OBS1 NEGATIVE (NEGATIVE)
--- NOTE | 2024-10-10 17:03 | PC.NURSE ---
This RN attempted an IV x2, unable to obtain at this time, RN placing US line at this time. MD aware of delay in labs and Meds ordered in MAY.
[2024-10-10] MEDS: cefEPime HCl/D5W 2 GM/50 ML PIGGYBACK IV (17:20)
[2024-10-10 17:35] LABS: Troponin-I High Sensitivity 11.1 ng/L (<3.5-17.0)
--- NOTE | 2024-10-10 18:02 | PC.NURSE ---
APAP and diet order placed at this time per verbal order from MD Hicks
--- NOTE | 2024-10-10 19:05 | PC.NURSE ---
Pt given APAP POC gone over with pt, she is in agreement to get CT at this time, IV lasix to be given on return
[2024-10-10] MEDS: Furosemide 20 MG/2 ML VIAL IVPUSH ×2 (19:52→22:15)
--- NOTE | 2024-10-10 22:23 | PHA.MEDREC ---
Addendum entered by Sheeba [facility] 10/10/24 22:45: REVIEWED BY PHARMACIST, ALSO ADDED MYRBETRIQ, OMEPRAZOLE AND VERAPAMIL WHICH PATIENT CONFIRMED SHE IS TAKING Original Note: Pharmacy Consult ? Medication Reconciliation Pharmacy has completed the medication reconciliation. Spoke with pt and she confirmed her medications. Per pt she is taking Prempro on and took it this past Thursday (10/07) and she states she has been taking her Metoprolol Tartrarte 25mg tab QD and states she never took it BID like prescribed. Pt stated she takes a Magnesium and Vitamin D3 tab at home but didnt remember the dose of them at this time.
--- NOTE | 2024-10-10 23:14 | P.HPHOSP_ITS ---
History of Present Illness Date of Service: 10/10/24 <Cata Wade MD - Last Filed: 10/10/24 23:55> Chief Complaint: SOB <Cata Wade MD - Last Filed: 10/10/24 23:55> Patient is a 74-year-old female with past medical history HFpEF, AFib on Eliquis, UTI, osteoarthritis with bilateral shoulder repair, postmenopausal bleeding on hormone therapy, ascending aortic aneurysm last checked 4.1 cm 2023, hypertension, hyperlipidemia and hypothyroidism presents to the emergency department today with complaints of palpitations with shortness of breath while at the primary care physician's office earlier today. Patient was there following with her primary care physician after being discharged from [facility]. Patient required ICU admission for UTI related issues and then required rehabilitation due to increased weakness and decreased mobility. Patient returned home 2 Fridays ago. Patient has not felt 100% and has been experiencing increased edema in the lower extremities. Patient took 1 dose of oral Lasix this morning as this was held while she was at [facility]. Patient noted increased edema in the lower extremities. Patient stated she knew her primary care physician would start her back on the Lasix. Last echo was 08/2024, EF 60% with noted dilatation of the ascending aorta of 4.1 cm. Patient does not use oxygen at home currently. Patient uses walker to ambulate at this time. Patient no longer drives. Patient arrived with a heart rate of 103, AFib currently on metoprolol 25 mg b.i.d.. Patient's troponin 10.4 and then 11.1.. BNP 798. EKG AFib heart rate 94, QTC uncorrected for 70, with ST and T-wave abnormalities for inferior and anterior lateral ischemia. Patient is not experiencing any hypoxia and there is a low risk concern for PE. Magnesium 1.9 and TSH within normal limits. Patient follows with internal communications manager here in [place], she believes through [facility] and was recently seen. Patient states she is persistently in AFib. Per records from [facility] patient's beta-alexus was decreased as she could not tolerate the higher dose. Patient did receive IV Lasix in the emergency department. Patient remains on room air. UA positive for UTI with culture pending. In the emergency room patient was started on cefepime 2 g IV x1. Lactic acid normal and patient has no leukocytosis or fever. Patient has frequent history of UTI related to E coli and Klebsiella. Both have been susceptible to cefepime and ceftriaxone in the past. Patient does follow with Dr. Childress, a Uro welding pantograph machine operator in [place]. Patient plans to call to make another appointment as she was seen 6 months prior and has since been hospitalized twice minimally for UTI related issues. Patient denies history of hysterectomy, prolapsed bladder or uterus, history of sling procedure. Patient does not use Estrace cream. Patient currently on hormone therapy but can not explain why. In addition there is question of confusion baseline, and a CT of the head was requested. This could be delirium related to patient's obvious UTI, but patient is currently awake and alert and orientated x3 just experiencing fatigue secondary to ongoing anxiety issues related to a recent inheritance of a condo and patient currently has to move. Patient is prescribed Tylenol with codeine from her back doctor for chronic pain issues and often only uses 1 pill per day. <MIKE Escobedo - Last Filed: 10/10/24 23:40> Review of Systems 2 Review of Systems: Patient reports ongoing anxiety related to a recent inheritance of a condo and patient has to move from her house to this condo. In addition patient is reporting increased fatigue as she has not slept the last 2 nights. Patient is having some issues with voiding since arriving to the emergency department today. Patient denies any chest pain, shortness of breath at rest, nausea or vomiting. Patient is not having any abdominal pain. <MIKE Escobedo - Last Filed: 10/10/24 23:40> Yes all other systems are reviewed and are negative <MIKE Escobedo - Last Filed: 10/10/24 23:40> [facility] Medical History: Medical History Persistent atrial fibrillation Class 1 obesity Essential hypertension Primary osteoarthritis involving multiple joints Anxiety GERD (gastroesophageal reflux disease) Carpal tunnel syndrome Stroke Hypothyroidism Arthritis HTN (hypertension) Asthma Obesity Chronic pain <MIKE Escobedo - Last Filed: 10/10/24 23:40> Cognitive capacity: Alert and orientated x3 <MIKE Escobedo - Last Filed: 10/10/24 23:40> Functional capacity: uses cane/walker <[employer] Javid [facility] - Last Filed: 10/10/24 23:40> Family History: Family History Father CVD (cardiovascular disease) Diabetes Mother CVD (cardiovascular disease) HTN (hypertension) <[facility] - Last Filed: 10/10/24 23:40> Surgical History: Surgical History History of left shoulder replacement History of right shoulder replacement S/P panniculectomy Hx of cholecystectomy S/P foot surgery, right History of bladder surgery History of tonsillectomy <[employer] Javid [facility] - Last Filed: 10/10/24 23:40> Social History: Social History Household Members: Significant Other Housing: Condominium Do you presently have visiting nurse or other home services: No Unable to assess alcohol history related to: Unknown Alcohol intake: never Patient Tobacco Use Status: Never used Tobacco e-Cigarette/Vaping Use: Never Used Advance Directives: Yes Advance Directives on File: Yes Advance Directives Date on File: 06/03/23 Do you have a plan to hurt others: No Plan service: No Current occupational status: retired <[employer] aJvid [facility] - Last Filed: 10/10/24 23:40> Ebola Risk: Travel/Contact With Anyone From Affected Area/s: No <[facility] - Last Filed: 10/10/24 23:40> Has Patient Experienced Ebola Symptoms: No <[facility] - Last Filed: 10/10/24 23:40> Meds Allergies/Adverse reactions: Allergies Allergy/AdvReac Type Severity Reaction Status Date / Time No Known Allergies Allergy Mild N/A Verified 10/10/24 14:20 <[facility] - Last Filed: 10/10/24 23:40> Active Medications: Current Medications Acetaminophen (Acetaminophen 325 Mg Tablet) 650 mg PO Q6H PRN PRN Reason: Pain, Mild 1-3,fever,headache Albuterol/Ipratropium (Albuterol/Iprat 2.5/0.5mg 3 Ml Ampul.Neb) 3 ml INHALE Q4H PRN PRN Reason: Shortness of Breath/Wheezing Calcium Carbonate (Calcium Carbonate 750 Mg Tab.Chew) 750 mg PO Q4H PRN PRN Reason: Heartburn Magnesium Hydroxide (Milk Of Magnesia 30 Ml Oral.Susp) 30 ml PO DAILY PRN PRN Reason: Constipation Melatonin (Melatonin 3 Mg Tablet) 6 mg PO BEDTIME PRN PRN Reason: Insomnia Ondansetron HCl (Ondansetron Hcl 4 Mg/2 Ml Vial) 4 mg IVPUSH Q8H PRN PRN Reason: Nausea and Vomiting Polyethylene Glycol (Polyethylene Glycol 3350 17 Gm Powd.Pack) 17 gm PO DAILY PRN PRN Reason: Constipation Senna (Sennosides 8.6 Mg Tablet) 17.2 mg PO BEDTIME CORY Sodium Chloride (0.9 % Sodium Chloride Flush 3 Ml Syringe) 3 ml IVFLUSH QSHIFT [facility] <Evelia Hua, [facility]- - Last Filed: 10/10/24 23:40> Home medications: Home Medications ?Medication ?Instructions ?Recorded ?Confirmed ?Last Taken ?Type apixaban 5 mg tablet (Eliquis) 5 mg PO BID 03/27/2010/10/24 History atorvastatin 40 mg tablet 40 mg PO BEDTIME 03/27/2010/09/24 History conj estrogen-medroxyprogesterone 1 tab PO MOWEFR 08/1010/10/24 10/07/24 History 0.625 mg-2.5 mg tablet (Prempro) cvuaexxewh-tljlopdnberww-nyfixtiq 1 tab PO Q6H PRN Gregg argenis Headache 05/13/21 10/10/24 05/18/21 History 50 mg-325 mg-40 mg tablet hydrocodone 5 mg-acetaminophen 325 1 tab PO BID PRN Pa in (Scale Score 05/13/21 10/10/24 05/18/21 History mg tablet 4-6) albuterol sulfate 90 mcg/actuation 2 puff inhalation Q 6H PRN 05/29/23 10/10/24 05/28/23 History aerosol inhaler Shortness Of Breath Or Wheez ing levothyroxine 50 mcg tablet 50 mcg PO DAILY@0600 05/2810/10/24 10/10/24 History escitalopram oxalate 10 mg tablet 10 mg PO DAILY 07/1510/10/24 10/10/24 History furosemide 40 mg tablet 40 mg PO DAILY 07/15/24 07/04/1610/10/24 History oxqudar-poypsstekzmho-mihrmjft 250 2 tab PO Q6H PRN Pa in 10/10/24 10/10/24 Unknown History mg-250 mg-65 mg tablet (Excedrin Extra Strength) metoprolol tartrate 25 mg tablet 25 mg PO DAILY 10/10/24 10/10/24 History mirabegron 25 mg tablet,extended 25 mg PO DAILY 10/10/24 Unknown History release 24 hr (Myrbetriq) omeprazole 20 mg capsule,delayed 20 mg PO DAILY@0630 0 10/10/24 10/10/24 Unknown History release verapamil 120 mg tablet,extended 120 mg PO DAILY 10/1010/10/24 Unknown History release <[facility] - Last Filed: 10/10/24 23:40> Physical Exam 2 Vital Signs and Narrative: Vital Signs: Last Vital Signs Temp 97.6 F 10/10/24 22:12 Pulse 99 10/10/24 22:12 Resp 16 10/10/24 22:12 BP 135/83 10/10/24 22:15 Pulse Ox 92 10/10/24 22:12 O2 Del Method Room Air 10/10/24 22:12 O2 Flow Rate 1 10/10/24 15:42 BMI result Body Mass Index 28.0 <[facility] - Last Filed: 10/10/24 23:40> Alert and orientated X3, able to give good history. Patient nods off intermittently but no signs of encephalopathy. Neuro: CN II-X11 intact, no deficits, visual acuity intact EYES: PERRLA, EOM intact, conjunctiva pink, sclerae nonicteric ENT: hearing intact, no issues with swallowing, uvula midline, lips moist, nares patent no epistaxis Cardiac: S1 S2 irregular rate 94, no murmur, no JVD, trace edema in Lower ext Pulmonary: lungs diminished bilaterally Abdominal: BS active in all 4 quadrants, no guarding, tenderness, rebounding MSK: strength 4/5 upper and lower extremities : no CVA tenderness, bladder scan 610, periwick in place, patient states she can not void Extremities: Trace edema in lower extremities, PT and DP pulses palpable +2 Psych: mood stable, judgement and insight good Skin: Intact <[facility] - Last Filed: 10/10/24 23:40> Results Labs CBC and Chem 7: 10/10/24 14:49 10/10/24 14:49 <[facility]- - Last Filed: 10/10/24 23:40> Labs: Laboratory Results - last 24 hr 10/10/24 10/10/24 10/10/24 13:00 14:49 16:49 MCV 86.1 MCH 26.9 L MCHC 31.3 RDW 14.9 Plt Count 159 L MPV 10.3 Immature Gran % (Auto) 0.2 Neut % (Auto) 62.5 Lymph % (Auto) 22.9 Tift % (Auto) 11.6 H Eos % (Auto) 2.2 Baso % (Auto) 0.6 Lymph # (Auto) 1.2 Tift # (Auto) 0.6 Eos # (Auto) 0.1 Baso # (Auto) 0.0 Abs Immat Gran (auto) 0.01 Absolute Neuts (auto) 3.4 Absolute Nucleated RBC 0.000 Nucleated RBC % (auto) 0.0 Anion Gap 13 Estim Creat Clear Calc 53.0 Estimated GFR 59 Random Glucose 102 Lactic Acid Calcium 9.7 D Magnesium 1.9 Total Bilirubin 0.6 AST 30 ALT 14 Alkaline Phosphatase 96 B-Natriuretic Peptide 798 H Total Protein 6.6 Albumin 3.9 TSH 1.59 Urine Color Yellow Urine Appearance Cloudy Urine pH 8.0 Ur Specific [place] 1.015 Urine Protein 30 (1+) H Urine Glucose (UA) Negative Urine Ketones Negative Urine Blood Trace H Urine Nitrite Positive H Ur Leukocyte Esterase Large (3+) H Urine RBC 6-10 H Urine WBC >50 H Ur Squamous Epith Cells 11-20 Urine Bacteria 4+ Hyaline Casts 3-5 Urine Yeast Present Stool Occult Blood NEGATIVE Influenza Type A (PCR) NEGATIVE Influenza Type B (PCR) NEGATIVE RSV RNA Qual (PCR) NEGATIVE SARS-CoV-2 RNA (RT-PCR) NEGATIVE Blood Type Antibody Screen 10/10/24 17:08 MCV MCH MCHC RDW Plt Count MPV Immature Gran % (Auto) Neut % (Auto) Lymph % (Auto) Tift % (Auto) Eos % (Auto) Baso % (Auto) Lymph # (Auto) Tift # (Auto) Eos # (Auto) Baso # (Auto) Abs Immat Gran (auto) Absolute Neuts (auto) Absolute Nucleated RBC Nucleated RBC % (auto) Anion Gap Estim Creat Clear Calc Estimated GFR Random Glucose Lactic Acid 1.1 Calcium Magnesium Total Bilirubin AST ALT Alkaline Phosphatase B-Natriuretic Peptide Total Protein Albumin TSH Urine Color Urine Appearance Urine pH Ur Specific [place] Urine Protein Urine Glucose (UA) Urine Ketones Urine Blood Urine Nitrite Ur Leukocyte Esterase Urine RBC Urine WBC Ur Squamous Epith Cells Urine Bacteria Hyaline Casts Urine Yeast Stool Occult Blood Influenza Type A (PCR) Influenza Type B (PCR) RSV RNA Qual (PCR) SARS-CoV-2 RNA (RT-PCR) Blood Type O Positive Antibody Screen NEGATIVE <[facility] - Last Filed: 10/10/24 23:40> Imaging Radiologist's Impressions: Impressions Chest X-Ray 10/10/24 13:49 IMPRESSION: No acute cardiopulmonary abnormality. Electronically signed by: Travis Ortiz MD 10/10/2024 02:54 PM EDT <[facility] - Last Filed: 10/10/24 23:40> Assessment and Plan (1) CHF (congestive heart failure): Qualifiers: Heart failure chronicity: unspecified Heart failure type: u nspecified Qualified Code(s): I50.9 - Heart failure, unspecified <[facility] - Last Filed: 10/10/24 23:40> Status: Acute <[facility] Last Filed: 10/10/24 23:40> Patient is a 74-year-old female with past medical history HFpEF, AFib on Eliquis, UTI, osteoarthritis with bilateral shoulder repair, postmenopausal bleeding on hormone therapy, ascending aortic aneurysm last checked 4.1 cm 2023, hypertension, hyperlipidemia and hypothyroidism presented with palpitations and shortness of breath while waiting in her primary care office for her outpatient office visit. Patient is being admitted with the following medical problems: UTI with urinary retention, no encephalopathy Patient is started on cefepime and we will continue cefepime 1 g b.i.d. Patient has chronic issues with UTI (E coli and Klebsiella) and follows with Dr. Childress, a Uro welding pantograph machine operator specialist affiliated with [facility]. It is recommended patient call to make an appointment upon discharge for further follow-up as her last appointment was 6 months prior. Patient has had at least 2 admissions related to UTI both here at [facility] in [facility]. Patient required ICU level care this past admission at [facility]. Hemodynamics stable no IV fluid indicated. No evidence of sepsis at this time Follow urine culture Straight cath x1 noting bladder scan 610. If patient fails a 2nd time Forte will be placed. CT scan of the head negative for any acute findings. Initially per ED provider patient was confused. This has resolved. HFpEF Patient received Lasix IV 20 x 2 in the ED Patient resumed her usual Lasix dose this morning prior to coming into the ED, as this medication was stopped upon her discharge from [facility] this past admission Lasix 20 IV daily ordered with potassium 20 mEq daily Patient does follow with a internal communications manager through [facility] Daily weight, fluid allowance 1500, low-sodium diet Follow BMP, BNP 798, troponin negative Engineering Lecturer consult ordered Heart failure navigator - outpatient if available Cardiology consulted AFib RVR on Eliquis Initially patient arrived in RVR, rate currently controlled Patient has persistent AFib Magnesium 1.9, 1 g ordered TSH within normal limits Telemetry HX ascending aortic aneurysm Last no measurement 4.1 cm Avoid hypertension Anxiety Continue Lexapro once med rec completed QTC within normal limits Hypertension Once med rec completed in his long as blood pressure remained stable continue metoprolol. Verapamil currently listed on patient's med rec, unclear if this is an accurate current med as this could contribute to negative inotropy Cardiology consulted Hypothyroidism TSH within normal limits continue usual dose of levothyroxine once med rec completed Anemia H&H slightly low at 9.5 and 30.4 from patient's baseline, maybe dilutional as patient has been off her Lasix for some time Repeat CBC in the a.m., we will check patient's iron panel and vitamin B12 DVT prophylaxis: Eliquis Med rec pending Full Code status <Evelia Javid, TRACK SERVICE PERSON[facility] - Last Filed: 10/10/24 23:40> Patient is a 74-year-old female with past medical history HFpEF, AFib on Eliquis, UTI, osteoarthritis with bilateral shoulder repair, postmenopausal bleeding on hormone therapy, ascending aortic aneurysm last checked 4.1 cm 2023, hypertension, hyperlipidemia and hypothyroidism presented with palpitations and shortness of breath while waiting in her primary care office for her outpatient office visit. Patient is being admitted with the following medical problems: Acute on chronic HFpEF Patient received Lasix IV 20 x 2 in the ED Patient resumed her usual Lasix dose this morning prior to coming into the ED, as this medication was stopped upon her discharge from [facility] this past admission Lasix 20 IV daily ordered with potassium 20 mEq daily Patient does follow with a internal communications manager through [facility] Daily weight, fluid allowance 1500, low-sodium diet Follow BMP, BNP 798, troponin negative Engineering Lecturer consult ordered Heart failure navigator - outpatient if available Cardiology consulted UTI with urinary retention, no encephalopathy Patient is started on cefepime and we will continue cefepime 1 g b.i.d. Patient has chronic issues with UTI (E coli and Klebsiella) and follows with Dr. Childress, a Uro welding pantograph machine operator specialist affiliated with [facility]. It is recommended patient call to make an appointment upon discharge for further follow-up as her last appointment was 6 months prior. Patient has had at least 2 admissions related to UTI both here at [facility] in [facility]. Patient required ICU level care this past admission at [facility]. Hemodynamics stable no IV fluid indicated. No evidence of sepsis at this time Follow urine culture Straight cath x1 noting bladder scan 610. If patient fails a 2nd time Forte will be placed. CT scan of the head negative for any acute findings. Initially per ED provider patient was confused. This has resolved. AFib RVR on Eliquis Initially patient arrived in RVR, rate currently controlled Patient has persistent AFib Magnesium 1.9, 1 g ordered TSH within normal limits Telemetry HX ascending aortic aneurysm Last no measurement 4.1 cm Avoid hypertension Anxiety Continue Lexapro once med rec completed QTC within normal limits Hypertension Once med rec completed in his long as blood pressure remained stable continue metoprolol. Verapamil currently listed on patient's med rec, unclear if this is an accurate current med as this could contribute to negative inotropy Cardiology consulted Hypothyroidism TSH within normal limits continue usual dose of levothyroxine once med rec completed Anemia H&H slightly low at 9.5 and 30.4 from patient's baseline, maybe dilutional as patient has been off her Lasix for some time Repeat CBC in the a.m., we will check patient's iron panel and vitamin B12 DVT prophylaxis: Eliquis Med rec pending Full Code status <Cata Wade MD - Last Filed: 10/10/24 23:55> Quality Stroke Does the patient have a stroke diagnosis?: No <[employer] J[facility], TRACK SERVICE PERSON[facility] - Last Filed: 10/10/24 23:40> Reason for No Anti-thrombotic by Day Two: N/A - Med Ordered <[employer] Javid, TRACK SERVICE PERSON- - Last Filed: 10/10/24 23:40> VTE Prior VTE?: No <Evelia Javid, TRACK SERVICE PERSON[facility] - Last Filed: 10/10/24 23:40> VTE Risk Level:: Medical - moderate - high <Evelia Javid, TRACK SERVICE PERSON[facility] - Last Filed: 10/10/24 23:40> VTE Device Contraindication: N/A - Device Ordered <Evelia Javid, TRACK SERVICE PERSON[facility] - Last Filed: 10/10/24 23:40> VTE Drug Contraindication: N/A - Med Ordered <[employer] Jav[employer], TRACK SERVICE PERSON[facility] - Last Filed: 10/10/24 23:40>
[2024-10-11] VITALS (11 sets, daily range): BP systolic 122–169; BP diastolic 72–98; PULSE 78–112; RESP 16–28; TEMP 36.1–37.1; O2SAT 91–98; BMI 24.7
[2024-10-11] MEDS: 0.9 % Sodium Chloride Flush 3 ML SYRINGE IVFLUSH ×4 (00:16→20:47)
[2024-10-11] MEDS: HYDROcodone Bit/Acetam 5/325 TABLET 1 TAB PO (02:46)
[2024-10-11 04:40] LABS: Hematocrit 27.5 % (37.0-47.0); Hemoglobin 8.8 g/dl (12.0-16.0); Imm Gran Abs Auto 0.01 X10*3/uL (0.00-0.03); Imm Gran Pct Auto 0.2 % (0.0-0.4); Lymphocytes Absolute Auto 1.1 X10*3/uL (1.2-4.9); MANUAL DIFF FLAG NO; Mean Corpuscular HGB Conc 32.0 g/dl (31.0-35.0); Mean Corpuscular Hemoglobin 26.8 pg (27.0-33.0); Mean Corpuscular Volume 83.8 fL (80.0-98.0); NRBC Abs Auto 0.000 X10*3/uL (0.0-0.012); NRBC Pct Auto 0.0 /100WBC (0.0-0.2); Platelet Count 149 X10*3/uL (160-400); Red Blood Count 3.28 X10*6/uL (4.20-5.50); White Blood Count 5.3 X10*3/uL (4.8-10.8)
[2024-10-11 04:58] LABS: Anion Gap 15 (12-20); Blood Urea Nitrogen 12 mg/dL (9-16); Calcium 9.1 mg/dL (8.4-10.2); Carbon Dioxide 32 mmol/L (22-29); Chloride 100 mmol/L (96-108); Creatinine Clr Calc Pharmacy 54.2; Estimated Glomerular Filt Rate > 60; Iron 20 mcg/dL (30-160); Percent Iron Saturation 7 % (15-50); Potassium 3.7 mmol/L (3.3-5.1); Sodium 143 mmol/L (135-145); Total Iron Binding Capacity 297 mcg/dL (228-428); Unsaturated Iron Binding 277 ug/dL
[2024-10-11 05:26] LABS: Vitamin B12 207 pg/mL (200-900)
[2024-10-11] MEDS: Potassium Chloride ER 20 MEQ TAB.ER.PRT PO (09:14)
[2024-10-11] MEDS: Furosemide 20 MG/2 ML VIAL IVPUSH (09:14)
[2024-10-11] MEDS: diazePAM 10 MG/2 ML CARTRIDGE 5 MG IVPUSH (09:16)
[2024-10-11] MEDS: VerapamiL HCL SR 120 MG TABLET.ER PO (10:24)
--- NOTE | 2024-10-11 10:56 | P.PNIM_ITS ---
Subjective Subjective Date of Service: 10/11/24 Interval History: palpitatoins Physical Exam 2 Exam: Exam: General: AO X 3, anxios Resp: CTA bilateral, no accessory muscles used CVS: S1,S2,Rapid irregular GI: soft, non tender, non distended Neuro: motor grossly intact, alert Psych: appropriate affect, appropriate insight Vital Signs: Vital Signs: Last Vital Signs Temp 98.7 F 10/11/24 04:25 Pulse 81 10/11/24 10:24 Resp 24 H 10/11/24 07:55 BP 139/85 10/11/24 10:24 Pulse Ox 94 10/11/24 07:55 O2 Del Method Room Air 10/11/24 07:55 O2 Flow Rate 1 10/10/24 15:42 BMI result Body Mass Index 28.0 Objective Data Active Medications Acetaminophen (Acetaminophen 325 Mg Tablet) 650 mg PO Q6H PRN PRN Reason: Pain, Mild 1-3,fever,headache Hydrocodone Bitart/Acetaminophen (Hydrocodone Bit/Acetam 5/325 Tablet) 1 tab PO Q8H PRN PRN Reason: Pain, Severe (Pain Scale 7-10) Last Admin: 10/11/24 02:46 Dose: 1 tab Documented By: LIVIER Albuterol/Ipratropium (Albuterol/Iprat 2.5/0.5mg 3 Ml Ampul.Neb) 3 ml INHALE Q4H PRN PRN Reason: Shortness of Breath/Wheezing Apixaban (Apixaban 5 Mg Tablet) 5 mg PO BID [facility] Last Admin: 10/11/24 09:13 Dose: 5 mg Documented By: FLAQUITA Atorvastatin Calcium (Atorvastatin Calcium 40 Mg Tablet) 40 mg PO BEDTIME [facility] Calcium Carbonate (Calcium Carbonate 750 Mg Tab.Chew) 750 mg PO Q4H PRN PRN Reason: Heartburn Escitalopram Oxalate (Escitalopram Oxalate 10 Mg Tablet) 10 mg PO DAILY [facility] Last Admin: 10/11/24 09:13 Dose: 10 mg Documented By: FLAQUITA Cefepime HCl 1 gm/ Sodium (Chloride) 50 mls @ 100 mls/hr IV Q12H [facility] Last Infusion: 10/11/24 05:40 Dose: Infused Documented By: LIVIER Levothyroxine Sodium (Levothyroxine Sodium 50 Mcg Tablet) 50 mcg PO DAILY@0600 [facility] Magnesium Hydroxide (Milk Of Magnesia 30 Ml Oral.Susp) 30 ml PO DAILY PRN PRN Reason: Constipation Melatonin (Melatonin 3 Mg Tablet) 6 mg PO BEDTIME PRN PRN Reason: Insomnia Metoprolol Tartrate (Metoprolol Tartrate 25 Mg Tablet) 25 mg PO DAILY [facility]; Protocol Last Admin: 10/11/24 09:14 Dose: 25 mg Documented By: FLAQUITA Mirabegron (Mirabegron 25 Mg Tab.Er.24h) 25 mg PO DAILY [facility] Last Admin: 10/11/24 10:24 Dose: 25 mg Documented By: FLAQUITA Ondansetron HCl (Ondansetron Hcl 4 Mg/2 Ml Vial) 4 mg IVPUSH Q8H PRN PRN Reason: Nausea and Vomiting Polyethylene Glycol (Polyethylene Glycol 3350 17 Gm Powd.Pack) 17 gm PO DAILY PRN PRN Reason: Constipation Potassium Chloride (Potassium Chloride Er 20 Meq Tab.Er.Prt) 20 meq PO DAILY [facility] Last Admin: 10/11/24 09:14 Dose: 20 meq Documented By: FLAQUITA Senna (Sennosides 8.6 Mg Tablet) 17.2 mg PO BEDTIME [facility] Sodium Chloride (0.9 % Sodium Chloride Flush 3 Ml Syringe) 3 ml IVFLUSH QSHIFT [facility] Last Admin: 10/11/24 07:27 Dose: 3 ml Documented By: FLAQUITA Verapamil HCl (Verapamil Hcl Sr 120 Mg Tablet.Er) 120 mg PO DAILY [facility]; Protocol Last Admin: 10/11/24 10:24 Dose: 120 mg Documented By: FLAQUITA Labs 10/11/24 04:28 10/11/24 04:28 Labs: Laboratory Results - last 24 hr 10/10/24 10/10/24 10/10/24 13:00 14:49 16:49 MCV 86.1 MCH 26.9 L MCHC 31.3 RDW 14.9 Plt Count 159 L MPV 10.3 Immature Gran % (Auto) 0.2 Neut % (Auto) 62.5 Lymph % (Auto) 22.9 [place] % (Auto) 11.6 H Eos % (Auto) 2.2 Baso % (Auto) 0.6 Lymph # (Auto) 1.2 [place] # (Auto) 0.6 Eos # (Auto) 0.1 Baso # (Auto) 0.0 Abs Immat Gran (auto) 0.01 Absolute Neuts (auto) 3.4 Absolute Nucleated RBC 0.000 Nucleated RBC % (auto) 0.0 Anion Gap 13 Estim Creat Clear Calc 53.0 Estimated GFR 59 Random Glucose 102 Lactic Acid Calcium 9.7 D Magnesium 1.9 Iron TIBC % Saturation Unsat Iron Binding Total Bilirubin 0.6 AST 30 ALT 14 Alkaline Phosphatase 96 B-Natriuretic Peptide 798 H Total Protein 6.6 Albumin 3.9 Vitamin B12 TSH 1.59 Urine Color Yellow Urine Appearance Cloudy Urine pH 8.0 Ur Specific [place] 1.015 Urine Protein 30 (1+) H Urine Glucose (UA) Negative Urine Ketones Negative Urine Blood Trace H Urine Nitrite Positive H Ur Leukocyte Esterase Large (3+) H Urine RBC 6-10 H Urine WBC >50 H Ur Squamous Epith Cells 11-20 Urine Bacteria 4+ Hyaline Casts 3-5 Urine Yeast Present Stool Occult Blood NEGATIVE Influenza Type A (PCR) NEGATIVE Influenza Type B (PCR) NEGATIVE RSV RNA Qual (PCR) NEGATIVE SARS-CoV-2 RNA (RT-PCR) NEGATIVE Blood Type Antibody Screen 10/10/24 10/11/24 17:08 04:28 MCV 83.8 MCH 26.8 L MCHC 32.0 RDW 14.8 Plt Count 149 L MPV 10.6 Immature Gran % (Auto) 0.2 Neut % (Auto) 62.7 Lymph % (Auto) 21.3 [place] % (Auto) 12.7 H Eos % (Auto) 2.5 Baso % (Auto) 0.6 Lymph # (Auto) 1.1 L [place] # (Auto) 0.7 Eos # (Auto) 0.1 Baso # (Auto) 0.0 Abs Immat Gran (auto) 0.01 Absolute Neuts (auto) 3.3 Absolute Nucleated RBC 0.000 Nucleated RBC % (auto) 0.0 Anion Gap 15 Estim Creat Clear Calc 54.2 Estimated GFR > 60 Random Glucose 101 Lactic Acid 1.1 Calcium 9.1 D Magnesium Iron 20 L TIBC 297 % Saturation 7 L Unsat Iron Binding 277 Total Bilirubin AST ALT Alkaline Phosphatase B-Natriuretic Peptide Total Protein Albumin Vitamin B12 207 TSH Urine Color Urine Appearance Urine pH Ur Specific [place] Urine Protein Urine Glucose (UA) Urine Ketones Urine Blood Urine Nitrite Ur Leukocyte Esterase Urine RBC Urine WBC Ur Squamous Epith Cells Urine Bacteria Hyaline Casts Urine Yeast Stool Occult Blood Influenza Type A (PCR) Influenza Type B (PCR) RSV RNA Qual (PCR) SARS-CoV-2 RNA (RT-PCR) Blood Type O Positive Antibody Screen NEGATIVE Microbiology Microbiology Results: Microbiology 10/10/24 Unknown Urine Culture - Preliminary Urine clean catch - Clean Catch Midstream Culture in progress. Assessment and Plan (1) Persistent atrial fibrillation: Status: Acute Plan 74F PMH hfpef, chronic afib, htn, hld, hypothryoid presented with palpiations and sob Palpitations and sob symptomatic chronic afib with rvr continue metoprolol, verapamil, eliquis, cardio eval hfpef s/p iv lasix, changing back to po 40mg daily urinary retention Straight cath with 600 cc, monitor uti Rocephin, follow up cultures anxiety lexapro hypothryoid levothyroxine chornic iron deficiency and inflammatory anemia stable dvt prophylaxis - eliquis full code reason for continued hospitalization:palpiations Quality Stroke Does the patient have a stroke diagnosis?: No Reason for No Anti-thrombotic by Day Two: N/A - Med Ordered VTE Prior VTE?: No VTE Risk Level:: Medical - moderate - high VTE Device Contraindication: N/A - Device Ordered VTE Drug Contraindication: N/A - Med Ordered
--- NOTE | 2024-10-11 12:27 | MHC.CM.PN ---
IMM 10/11/24, Pt. lives with S.O., she is active with [facility], she was recently in hosp. at [facility] and STR at [facility] for STR. PCP confirmed: Rai Fabian, HCP on file and confirmed: Young. For DME, pt. has walker, shower bench. Family to transport home at [place]. DCP: home, resume VNA services. CM to follow for DC needs.
--- NOTE | 2024-10-11 12:50 | PM.CNCAR ---
History of Present Illness History of Present Illness Date of Service: 10/11/24 Requesting physician: Phillip Marcus Chief complaint: SOB Narrative: [age] year female presenting for shortness of breath. She has been noticed to be anemic and has elevated BNP. Chest x-ray is normal. She is saying that she gets short of breath sitting in bed and describes the event as anxiety . She is saying that she gets anxious laying flat in bed 2. She has atrial fibrillation and follows with Dr. Ham. She is on Eliquis. Her hemoglobin is 8.8. She is denying any bleeding. I reviewed her EKGs in our system going back to 2019 and she has been in AFib since 2019 on all her EKGs. She does not get any palpitations. She is also being treated as UTI currently. She is saying she did not have any significant urinary complaints. [facility] Past Medical History Medical History (Updated 10/11/24 @ 10:58 by Phillip Marcus MD) Persistent atrial fibrillation Class 1 obesity Essential hypertension Primary osteoarthritis involving multiple joints Anxiety GERD (gastroesophageal reflux disease) Carpal tunnel syndrome Stroke Hypothyroidism Arthritis HTN (hypertension) Asthma Obesity Chronic pain Family History Family History Father CVD (cardiovascular disease) Diabetes Mother CVD (cardiovascular disease) HTN (hypertension) Surgical History Surgical History History of left shoulder replacement History of right shoulder replacement S/P panniculectomy Hx of cholecystectomy S/P foot surgery, right History of bladder surgery History of tonsillectomy Social History Social History Household Members: Significant Other Housing: Condominium Do you presently have visiting nurse or other home services: No Unable to assess alcohol history related to: Unknown Alcohol intake: never Patient Tobacco Use Status: Never used Tobacco e-Cigarette/Vaping Use: Never Used Advance Directives: Yes Advance Directives on File: Yes Advance Directives Date on File: 06/03/23 Do you have a plan to hurt others: No Plan service: No Current occupational status: retired Travel History Ebola Risk: Travel/Contact With Anyone From Affected Area/s: No Has Patient Experienced Ebola Symptoms: No Meds Allergies Allergy/AdvReac Type Severity Reaction Status Date / Time No Known Allergies Allergy Mild N/A Verified 10/10/24 14:20 Active Medications: Current Medications Acetaminophen (Acetaminophen 325 Mg Tablet) 650 mg PO Q6H PRN PRN Reason: Pain, Mild 1-3,fever,headache Hydrocodone Bitart/Acetaminophen (Hydrocodone Bit/Acetam 5/325 Tablet) 1 tab PO Q8H PRN PRN Reason: Pain, Severe (Pain Scale 7-10) Last Admin: 10/11/24 02:46 Dose: 1 tab Albuterol/Ipratropium (Albuterol/Iprat 2.5/0.5mg 3 Ml Ampul.Neb) 3 ml INHALE Q4H PRN PRN Reason: Shortness of Breath/Wheezing Apixaban (Apixaban 5 Mg Tablet) 5 mg PO BID [facility] Last Admin: 10/11/24 09:13 Dose: 5 mg Atorvastatin Calcium (Atorvastatin Calcium 40 Mg Tablet) 40 mg PO BEDTIME [facility] Calcium Carbonate (Calcium Carbonate 750 Mg Tab.Chew) 750 mg PO Q4H PRN PRN Reason: Heartburn Ceftriaxone Sodium (Ceftriaxone Sodium 1 Gm Vial) 1 gm IVPUSH Q24H [facility] Escitalopram Oxalate (Escitalopram Oxalate 10 Mg Tablet) 10 mg PO DAILY [facility] Last Admin: 10/11/24 09:13 Dose: 10 mg Furosemide (Furosemide 40 Mg Tablet) 40 mg PO DAILY [facility]; Protocol Levothyroxine Sodium (Levothyroxine Sodium 50 Mcg Tablet) 50 mcg PO DAILY@0600 [facility] Magnesium Hydroxide (Milk Of Magnesia 30 Ml Oral.Susp) 30 ml PO DAILY PRN PRN Reason: Constipation Melatonin (Melatonin 3 Mg Tablet) 6 mg PO BEDTIME PRN PRN Reason: Insomnia Metoprolol Tartrate (Metoprolol Tartrate 25 Mg Tablet) 25 mg PO DAILY [facility]; Protocol Last Admin: 10/11/24 09:14 Dose: 25 mg Mirabegron (Mirabegron 25 Mg Tab.Er.24h) 25 mg PO DAILY [facility] Last Admin: 10/11/24 10:24 Dose: 25 mg Ondansetron HCl (Ondansetron Hcl 4 Mg/2 Ml Vial) 4 mg IVPUSH Q8H PRN PRN Reason: Nausea and Vomiting Polyethylene Glycol (Polyethylene Glycol 3350 17 Gm Powd.Pack) 17 gm PO DAILY PRN PRN Reason: Constipation Potassium Chloride (Potassium Chloride Er 20 Meq Tab.Er.Prt) 20 meq PO DAILY [facility] Last Admin: 10/11/24 09:14 Dose: 20 meq Senna (Sennosides 8.6 Mg Tablet) 17.2 mg PO BEDTIME [facility] Sodium Chloride (0.9 % Sodium Chloride Flush 3 Ml Syringe) 3 ml IVFLUSH QSHIFT [facility] Last Admin: 10/11/24 07:27 Dose: 3 ml Verapamil HCl (Verapamil Hcl Sr 120 Mg Tablet.Er) 120 mg PO DAILY [facility]; Protocol Last Admin: 10/11/24 10:24 Dose: 120 mg Home Medications ?Medication ?Instructions ?Recorded ?Confirmed ?Last Taken ?Type apixaban 5 mg tablet (Eliquis) 5 mg PO BID 03/27/20 10/10/24 10/10/24 History atorvastatin 40 mg tablet 40 mg PO BEDTIME 03/27/20 10/10/24 10/09/24 History conj estrogen-medroxyprogesterone 1 tab PO MOWEFR 03/27/20 10/10/24 10/07/24 History 0.625 mg-2.5 mg tablet (Prempro) dccakacdkq-anxycgloohyfm-mqqzqlcj 1 tab PO Q6H PRN Migraine Headache 05/13/21 10/10/24 05/18/21 History 50 mg-325 mg-40 mg tablet hydrocodone 5 mg-acetaminophen 325 1 tab PO BID PRN Pain (Scale Score 05/13/21 10/10/24 05/18/21 History mg tablet 4-6) albuterol sulfate 90 mcg/actuation 2 puff inhalation Q6H PRN 05/29/23 10/10/24 05/28/23 History aerosol inhaler Shortness Of Breath Or Wheezing levothyroxine 50 mcg tablet 50 mcg PO DAILY@0600 05/29/23 10/10/24 10/10/24 History escitalopram oxalate 10 mg tablet 10 mg PO DAILY 07/15/24 10/10/24 10/10/24 History furosemide 40 mg tablet 40 mg PO DAILY 07/15/24 10/10/24 10/10/24 History hjmpisp-bhimfvkslpqqz-ldtfamtc 250 2 tab PO Q6H PRN Pain 10/10/24 10/10/24 Unknown History mg-250 mg-65 mg tablet (Excedrin Extra Strength) metoprolol tartrate 25 mg tablet 25 mg PO DAILY 10/10/24 10/10/24 10/10/24 History mirabegron 25 mg tablet,extended 25 mg PO DAILY 10/10/24 10/10/24 Unknown History release 24 hr (Myrbetriq) omeprazole 20 mg capsule,delayed 20 mg PO DAILY@0630 10/10/24 10/10/24 Unknown History release verapamil 120 mg tablet,extended 120 mg PO DAILY 10/10/24 10/10/24 Unknown History release Physical Exam Vital Signs: Vital Signs: Last Vital Signs Temp 98 F 10/11/24 12:12 Pulse 82 10/11/24 12:12 Resp 28 H 10/11/24 12:12 BP 122/74 10/11/24 12:12 Pulse Ox 93 10/11/24 12:12 O2 Del Method Room Air 10/11/24 12:12 O2 Flow Rate 1 10/10/24 15:42 BMI result Body Mass Index 28.0 GENERAL APPEARANCE: in no acute distress, pleasant. NECK: no carotid bruit, mild jugular venous distention. SKIN: no suspicious lesions, warm and dry. HEART: no murmurs, irregular rate and rhythm. LUNGS: clear to auscultation bilaterally. ABDOMEN: soft, nontender. EXTREMITIES: no edema. PERIPHERAL PULSES: equal. NEUROLOGIC: No gross deficits, AAO X 3 Objective Labs and Meds 10/11/24 04:28 10/11/24 04:28 Lab results: Laboratory Results - last 24 hr 10/10/24 10/10/24 10/10/24 13:00 14:49 16:49 WBC 5.4 RBC 3.53 L D Hgb 9.5 L D Hct 30.4 L D MCV 86.1 MCH 26.9 L MCHC 31.3 RDW 14.9 Plt Count 159 L MPV 10.3 Immature Gran % (Auto) 0.2 Neut % (Auto) 62.5 Lymph % (Auto) 22.9 [place] % (Auto) 11.6 H Eos % (Auto) 2.2 Baso % (Auto) 0.6 Lymph # (Auto) 1.2 [place] # (Auto) 0.6 Eos # (Auto) 0.1 Baso # (Auto) 0.0 Abs Immat Gran (auto) 0.01 Absolute Neuts (auto) 3.4 Absolute Nucleated RBC 0.000 Nucleated RBC % (auto) 0.0 Sodium 144 Potassium 4.1 D Chloride 104 Carbon Dioxide 31 H Anion Gap 13 BUN 15 Creatinine 0.92 Estim Creat Clear Calc 53.0 Estimated GFR 59 Random Glucose 102 Lactic Acid Calcium 9.7 D Magnesium 1.9 Iron TIBC % Saturation Unsat Iron Binding Total Bilirubin 0.6 AST 30 ALT 14 Alkaline Phosphatase 96 Troponin I High Sens 10.4 D B-Natriuretic Peptide 798 H Total Protein 6.6 Albumin 3.9 Vitamin B12 TSH 1.59 Urine Color Yellow Urine Appearance Cloudy Urine pH 8.0 Ur Specific [place] 1.015 Urine Protein 30 (1+) H Urine Glucose (UA) Negative Urine Ketones Negative Urine Blood Trace H Urine Nitrite Positive H Ur Leukocyte Esterase Large (3+) H Urine RBC 6-10 H Urine WBC >50 H Ur Squamous Epith Cells 11-20 Urine Bacteria 4+ Hyaline Casts 3-5 Urine Yeast Present Stool Occult Blood NEGATIVE Influenza Type A (PCR) NEGATIVE Influenza Type B (PCR) NEGATIVE RSV RNA Qual (PCR) NEGATIVE SARS-CoV-2 RNA (RT-PCR) NEGATIVE Blood Type Antibody Screen 10/10/24 10/11/24 17:08 04:28 WBC 5.3 RBC 3.28 L Hgb 8.8 L Hct 27.5 L MCV 83.8 MCH 26.8 L MCHC 32.0 RDW 14.8 Plt Count 149 L MPV 10.6 Immature Gran % (Auto) 0.2 Neut % (Auto) 62.7 Lymph % (Auto) 21.3 [place] % (Auto) 12.7 H Eos % (Auto) 2.5 Baso % (Auto) 0.6 Lymph # (Auto) 1.1 L [place] # (Auto) 0.7 Eos # (Auto) 0.1 Baso # (Auto) 0.0 Abs Immat Gran (auto) 0.01 Absolute Neuts (auto) 3.3 Absolute Nucleated RBC 0.000 Nucleated RBC % (auto) 0.0 Sodium 143 Potassium 3.7 Chloride 100 Carbon Dioxide 32 H Anion Gap 15 BUN 12 Creatinine 0.90 Estim Creat Clear Calc 54.2 Estimated GFR > 60 Random Glucose 101 Lactic Acid 1.1 Calcium 9.1 D Magnesium Iron 20 L TIBC 297 % Saturation 7 L Unsat Iron Binding 277 Total Bilirubin AST ALT Alkaline Phosphatase Troponin I High Sens 11.1 B-Natriuretic Peptide Total Protein Albumin Vitamin B12 207 TSH Urine Color Urine Appearance Urine pH Ur Specific [place] Urine Protein Urine Glucose (UA) Urine Ketones Urine Blood Urine Nitrite Ur Leukocyte Esterase Urine RBC Urine WBC Ur Squamous Epith Cells Urine Bacteria Hyaline Casts Urine Yeast Stool Occult Blood Influenza Type A (PCR) Influenza Type B (PCR) RSV RNA Qual (PCR) SARS-CoV-2 RNA (RT-PCR) Blood Type O Positive Antibody Screen NEGATIVE Imaging Radiologist's impression: Impressions Chest X-Ray 10/10/24 13:49 IMPRESSION: No acute cardiopulmonary abnormality. Electronically signed by: Travis Ortiz MD 10/10/2024 02:54 PM EDT RP Assessment and Plan (1) CHF (congestive heart failure): Qualifiers: Heart failure chronicity: unspecified Heart failure type: unspecified Qualified Code(s): I50.9 - Heart failure, unspecified Status: Acute (2) Persistent atrial fibrillation: Status: Acute Plan Pleasant 74 year female presenting with urinary tract infection and shortness of breath. Clinically appears to be in heart failure. She is anemic with hemoglobin of 8.8 and is on Eliquis for atrial fibrillation. She has been in atrial fibrillation since 2019 on all the EKGs that are in our system. She did not have any symptoms before and I think AFib is unrelated to her presentation. We will check the echocardiogram to rule out any cardiomyopathy. If in fact she has cardiomyopathy then it makes sense to cardiovert her but at the same time she has anemia which may affect her ability to stay on anticoagulation. Overall I think AFib is not related to her CHF presentation. Anemia can increase the stress and lead to congestive heart failure. Agree with gentle diuretics. Check iron level and iron studies to make sure she is not iron-deficiency because that will also give her symptoms. We will follow along with you. Thank you for allowing me to participate in the care of your patient. Please feel free to contact me if you have any questions. Procedures Date of Service Date of Service: 10/11/24
--- NOTE | 2024-10-11 17:00 | CA_ITS ---
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 There is mildly increased left ventricular wall thickness. The visually estimated ejection fraction is between 55-60%. - Normal right ventricular cavity size and systolic function. - The left atrium is likely dilated. - Normal right atrial pressure. Mild pulmonary hypertension is present. - There is mild dilatation of the ascending aorta measuring 4.30 cm. Findings Procedure Information Contrast agent, definity, is being given per protocol without apparent complications. Left Ventricle Normal left ventricular size and systolic function. There is mildly increased left ventricular wall thickness. The visually estimated ejection fraction is between 55-60%. There is no evidence of regional wall motion abnormalities. Diastolic function is indeterminate on the basis of available data. Right Ventricle Normal right ventricular cavity size and systolic function. Atria The left atrium is likely dilated. The right atrium is normal in size. Aortic Valve Normal aortic valve structure and function. There is no aortic valve stenosis. There is trace (trivial) aortic valve regurgitation. Mitral Valve The mitral valve appears normal. There is mild mitral valve regurgitation. There is no mitral valve stenosis. Pulmonic Valve The pulmonic valve is normal. There is trace pulmonic valve regurgitation. Tricuspid Valve Normal tricuspid valve structure. There is trace tricuspid valve regurgitation. The right ventricular systolic pressure is 40 mmHg. Normal right atrial pressure. Mild pulmonary hypertension is present. Great Vessels There is mild dilatation of the ascending aorta measuring 4.30 cm. The visualized portions of the pulmonary artery and branches are normal. Venous The inferior vena cava is normal in size and collapses greater than 50% with inspiration. Pericardium/Pleural There is no evidence of pericardial effusion. Prior Study Comparison No significant change compared to prior study dated: 05/29/2023. Measurements 2D Linear Measurements IVSd: 1.09 0.6-0.9/0.6-1.0 cm LVIDd: 4.24 3.9-5.3/4.2-5.9 cm LVIDd Index: 2.28 2.4-3.2/2.2-3.1 cm/m2 LVIDs: 2.74 2.0-3.6 cm LVPWd: 1.17 0.7-1.1 cm Ao Root: 3.40 2.1-3.5 cm LA Diam: 3.80 2.7-3.8/3.0-4.0 cm LAIDs Index: 2.04 1.5-2.3 cm/m2 LV Mass: 206.34 67-162/88-224 g LV Mass Index: 110.93 43-95/49-115 g/m2 LVOT Diam: 2.00 3.0+(-)1.3 cm 2D Systolic Function EF 4C: 46.20 >55% EF 2C: 56.80 >55% EF BiP: 50.30 >55% Mitral Valve MV Pk E: 0.82 MV Decel Time: 218.00 E'Lateral: 13.10 E'Medial: 6.20 E/E' Med: 13.20 E/E' Lat: 6.20 PHT: 64.00 MVA PHT: 3.44 Decel Jack: 3.75 Aortic Valve AoV Pk Kendrick: 1.10 AoV Mn Kendrick: 0.63 AoV VTI: 0.21 AoV Pk Grad: 5.00 Aov Mn Grad: 2.00 DAVID Cont.VTI: 2.16 LVOT LVOT Pk Kendrick: 0.74 LVOT Mn Kendrick: 0.46 LVOT VTI: 0.14 LVOT Pk Grad: 2.00 LVOT Mn Grad: 1.00 LVOT Diam: 2.00 LVOT Area: 3.14 Diastolic Function MV Pk E: 0.82 E'Medial: 6.20 E/E' Med: 13.20 E' Laterial: 13.10 E/E' Lat: 6.20 Right Ventricle TAPSE (mm): 23.00 Tricuspid Valve TR Pk Kendrick: 3.06 TR Pk Grad: 37.00 RA Press: 3.00 RVSP: 40.00 Great Vessels Aorta Ao Root-2D: 3.40 2.0-3.7 cm Ao Asc: 4.30 2.1-3.4 cm Pulmonary Valve PV Pk Kendrick: 0.65 Peak PV Grad: 2.00 Updated in Other Vendor System with Status of Final Matthew Ruiz MD electronically signed on 10/12/2024 11:27:41 AM with status of Final
[2024-10-12] VITALS (9 sets, daily range): BP systolic 124–140; BP diastolic 73–90; PULSE 73–106; RESP 16–20; TEMP 36.2–36.8; O2SAT 92–95
[2024-10-12] MEDS: Sodium Ferric Gluconat/Sucrose 125 MG in 0.9 % Sodium Chloride 100 ML 100 MG IV (08:14)
[2024-10-12] MEDS: VerapamiL HCL SR 120 MG TABLET.ER PO (08:46)
[2024-10-12] MEDS: Potassium Chloride ER 20 MEQ TAB.ER.PRT PO (08:47)
[2024-10-12] MEDS: 0.9 % Sodium Chloride Flush 3 ML SYRINGE IVFLUSH ×3 (08:48→20:12)
[2024-10-12 08:50] LABS: Hematocrit 33.6 % (37.0-47.0); Hemoglobin 10.2 g/dl (12.0-16.0); Mean Corpuscular HGB Conc 30.4 g/dl (31.0-35.0); Mean Corpuscular Hemoglobin 26.3 pg (27.0-33.0); Mean Corpuscular Volume 86.6 fL (80.0-98.0); NRBC Abs Auto 0.000 X10*3/uL (0.0-0.012); NRBC Pct Auto 0.0 /100WBC (0.0-0.2); Platelet Count 167 X10*3/uL (160-400); Red Blood Count 3.88 X10*6/uL (4.20-5.50); White Blood Count 6.1 X10*3/uL (4.8-10.8)
[2024-10-12 09:00] LABS: Alanine Aminotransferase 11 U/L (0-31); Albumin Level 3.7 g/dL (3.5-5.0); Alkaline Phosphatase 78 U/L (39-117); Anion Gap 11 (12-20); Aspartate Amino Transferase 24 U/L (5-31); Blood Urea Nitrogen 15 mg/dL (9-16); Calcium 9.7 mg/dL (8.4-10.2); Carbon Dioxide 34 mmol/L (22-29); Chloride 99 mmol/L (96-108); Creatinine Clr Calc Pharmacy 55.9; Estimated Glomerular Filt Rate > 60; Magnesium 1.9 mg/dL (1.6-2.6); Potassium 4.1 mmol/L (3.3-5.1); Sodium 140 mmol/L (135-145); Total Protein 6.9 g/dL (6.5-8.0)
--- NOTE | 2024-10-12 09:16 | P.PNIM_ITS ---
Subjective Subjective Date of Service: 10/12/24 Interval History: reporting resolution of palpiations Physical Exam 2 Vital Signs: Vital Signs: Last Vital Signs Temp 97.9 F 10/12/24 07:32 Pulse 91 10/12/24 08:47 Resp 20 10/12/24 07:32 BP 140/90 H 10/12/24 08:47 Pulse Ox 93 10/12/24 07:32 O2 Del Method Oxymask 10/12/24 07:32 O2 Flow Rate 2 10/12/24 07:32 BMI result Body Mass Index 24.7 GENERAL APPEARANCE: in no acute distress, pleasant. NECK: no carotid bruit, mild jugular venous distention. SKIN: no suspicious lesions, warm and dry. HEART: no murmurs, irregular rate and rhythm. LUNGS: clear to auscultation bilaterally. ABDOMEN: soft, nontender. EXTREMITIES: no edema. PERIPHERAL PULSES: equal. NEUROLOGIC: No gross deficits, AAO X 3 Objective Data Active Medications Acetaminophen (Acetaminophen 325 Mg Tablet) 650 mg PO Q6H PRN PRN Reason: Pain, Mild 1-3,fever,headache Last Admin: 10/12/24 08:47 Dose: 650 mg Documented By: ROSALINO Hydrocodone Bitart/Acetaminophen (Hydrocodone Bit/Acetam 5/325 Tablet) 1 tab PO Q8H PRN PRN Reason: Pain, Severe (Pain Scale 7-10) Last Admin: 10/11/24 02:46 Dose: 1 tab Documented By: LIVIER Albuterol/Ipratropium (Albuterol/Iprat 2.5/0.5mg 3 Ml Ampul.Neb) 3 ml INHALE Q4H PRN PRN Reason: Shortness of Breath/Wheezing Apixaban (Apixaban 5 Mg Tablet) 5 mg PO BID [facility] Last Admin: 10/12/24 08:47 Dose: 5 mg Documented By: ROSALINO Atorvastatin Calcium (Atorvastatin Calcium 40 Mg Tablet) 40 mg PO BEDTIME [facility] Last Admin: 10/11/24 20:47 Dose: 40 mg Documented By: MOR Calcium Carbonate (Calcium Carbonate 750 Mg Tab.Chew) 750 mg PO Q4H PRN PRN Reason: Heartburn Ceftriaxone Sodium (Ceftriaxone Sodium 1 Gm Vial) 1 gm IVPUSH Q24H [facility] Last Admin: 10/12/24 08:46 Dose: 1 gm Documented By: ROSALINO Escitalopram Oxalate (Escitalopram Oxalate 10 Mg Tablet) 10 mg PO DAILY [facility] Last Admin: 10/12/24 08:47 Dose: 10 mg Documented By: ROSALINO Furosemide (Furosemide 40 Mg Tablet) 40 mg PO DAILY [facility]; Protocol Last Admin: 10/12/24 08:48 Dose: 40 mg Documented By: ROSALINO Ferric Sodium Gluconate Complex 125 mg/ Sodium Chloride 110 mls @ 100 mls/hr IV DAILY [facility] Stop: 10/14/24 10:05 Last Admin: 10/12/24 08:14 Dose: 100 mls/hr Documented By: ROSALINO Levothyroxine Sodium (Levothyroxine Sodium 50 Mcg Tablet) 50 mcg PO DAILY@0600 [facility] Last Admin: 10/12/24 05:35 Dose: 50 mcg Documented By: MOR Magnesium Hydroxide (Milk Of Magnesia 30 Ml Oral.Susp) 30 ml PO DAILY PRN PRN Reason: Constipation Melatonin (Melatonin 3 Mg Tablet) 6 mg PO BEDTIME PRN PRN Reason: Insomnia Metoprolol Tartrate (Metoprolol Tartrate 25 Mg Tablet) 25 mg PO DAILY [facility]; Protocol Last Admin: 10/12/24 08:47 Dose: 25 mg Documented By: ROSALINO Mirabegron (Mirabegron 25 Mg Tab.Er.24h) 25 mg PO DAILY [facility] Last Admin: 10/12/24 08:47 Dose: 25 mg Documented By: ROSALINO Ondansetron HCl (Ondansetron Hcl 4 Mg/2 Ml Vial) 4 mg IVPUSH Q8H PRN PRN Reason: Nausea and Vomiting Polyethylene Glycol (Polyethylene Glycol 3350 17 Gm Powd.Pack) 17 gm PO DAILY PRN PRN Reason: Constipation Potassium Chloride (Potassium Chloride Er 20 Meq Tab.Er.Prt) 20 meq PO DAILY [facility] Last Admin: 10/12/24 08:47 Dose: 20 meq Documented By: ROSALINO Senna (Sennosides 8.6 Mg Tablet) 17.2 mg PO BEDTIME [facility] Last Admin: 10/11/24 20:47 Dose: 17.2 mg Documented By: MOR Sodium Chloride (0.9 % Sodium Chloride Flush 3 Ml Syringe) 3 ml IVFLUSH QSHIFT [facility] Last Admin: 10/12/24 08:48 Dose: 3 ml Documented By: ROSALINO Verapamil HCl (Verapamil Hcl Sr 120 Mg Tablet.Er) 120 mg PO DAILY [facility]; Protocol Last Admin: 10/12/24 08:46 Dose: 120 mg Documented By: ROSALINO Labs 10/12/24 08:24 10/12/24 08:24 Labs: Laboratory Results - last 24 hr 10/12/24 08:24 MCV 86.6 MCH 26.3 L MCHC 30.4 L RDW 15.0 Plt Count 167 MPV 10.3 Absolute Nucleated RBC 0.000 Nucleated RBC % (auto) 0.0 Anion Gap 11 L Estim Creat Clear Calc 55.9 Estimated GFR > 60 Random Glucose 103 Calcium 9.7 D Magnesium 1.9 Total Bilirubin 0.8 Direct Bilirubin 0.3 AST 24 ALT 11 Alkaline Phosphatase 78 Total Protein 6.9 Albumin 3.7 Microbiology Microbiology Results: Microbiology 10/10/24 Unknown Urine Culture - Preliminary Urine clean catch - Clean Catch Midstream Gram negative alise 10/10/24 17:08 Blood Culture - Preliminary Blood - Venous No growth after 24 hours. 10/10/24 16:49 Blood Culture - Preliminary Blood - Venous No growth after 24 hours. Assessment and Plan (1) Persistent atrial fibrillation: Status: Acute Plan 74F PMH hfpef, chronic afib, htn, hld, hypothryoid presented with palpiations and sob Palpitations and sob ?symptomatic chronic afib with rvr continue metoprolol, verapamil, eliquis, cardio following heart rate better controlled acute on chronic hfpef s/p iv lasix, changed back to po 40mg daily urinary retention Straight cathed with 600 cc, monitor uti Rocephin, follow up cultures anxiety lexapro hypothryoid levothyroxine chornic iron deficiency and inflammatory anemia will give iron infusion dvt prophylaxis - eliquis full code reason for continued hospitalization:cultures pending Quality Stroke Does the patient have a stroke diagnosis?: No Reason for No Anti-thrombotic by Day Two: N/A - Med Ordered VTE Prior VTE?: No VTE Risk Level:: Medical - moderate - high VTE Device Contraindication: N/A - Device Ordered VTE Drug Contraindication: N/A - Med Ordered
--- NOTE | 2024-10-12 14:22 | PM.PNCARD ---
Subjective Subjective Date of Service: 10/12/24 Interval history: Seen and examined at bedside. She has ESBL in her urine. She continues to have some shortness of breath and anxiety like feeling. Echocardiography reviewed which showed normal biventricular function. Previous EKGs were reviewed and she has been in atrial fibrillation since 2019. Physical Exam Vital Signs: Last Vital Signs Temp 98.0 F 10/12/24 11:16 Pulse 73 10/12/24 11:16 Resp 18 10/12/24 11:16 BP 124/79 10/12/24 11:16 Pulse Ox 95 10/12/24 11:16 O2 Del Method Room Air 10/12/24 11:16 O2 Flow Rate 2 10/12/24 07:32 BMI result Body Mass Index 24.7 GENERAL APPEARANCE: in no acute distress, pleasant. Pale appearing. NECK: no carotid bruit, mild jugular venous distention. SKIN: no suspicious lesions, warm and dry. HEART: no murmurs, irregular rate and rhythm. LUNGS: clear to auscultation bilaterally. ABDOMEN: soft, nontender. EXTREMITIES: no edema. PERIPHERAL PULSES: equal. NEUROLOGIC: No gross deficits, AAO X 3 Objective Labs and Meds 10/12/24 08:24 10/12/24 08:24 Lab results: Laboratory Results - last 24 hr 10/12/24 08:24 WBC 6.1 RBC 3.88 L Hgb 10.2 L Hct 33.6 L D MCV 86.6 MCH 26.3 L MCHC 30.4 L RDW 15.0 Plt Count 167 MPV 10.3 Absolute Nucleated RBC 0.000 Nucleated RBC % (auto) 0.0 Sodium 140 Potassium 4.1 Chloride 99 Carbon Dioxide 34 H Anion Gap 11 L BUN 15 Creatinine 0.77 Estim Creat Clear Calc 55.9 Estimated GFR > 60 Random Glucose 103 Calcium 9.7 D Magnesium 1.9 Total Bilirubin 0.8 Direct Bilirubin 0.3 AST 24 ALT 11 Alkaline Phosphatase 78 Total Protein 6.9 Albumin 3.7 Progress Note: A&P Assessment and plan (1) CHF (congestive heart failure): Status: Acute (2) Persistent atrial fibrillation: Status: Acute Plan [age] year female presenting with urinary tract infection and congestive heart failure. She has known atrial fibrillation and looking at her history and previous EKGs she has been in atrial fibrillation for last 5 years. I think she has permanent atrial fibrillation at this point. Rate control strategy as before. Agree with oral diuretics. Antibiotics as before. She was anemic on Eliquis and from the daughter's description she has bled before. We will discuss with Dr. Ham's partner Dr Vaughan if is a candidate for Watchman device. Thank you for allowing me to participate in the care of your patient. Please feel free to contact me if you have any questions. Time Spent With Patient Time: Total time managing care of this patient today ____ minutes. Progress Note: Quality Stroke Does the patient have a stroke diagnosis?: No Reason for No Anti-thrombotic by Day Two: N/A - Med Ordered Procedures Date of Service Date of Service: 10/12/24
--- NOTE | 2024-10-12 15:45 | MHC.CM.PN ---
EMR REVIEWED, PT W/SYMPTOMATIC AFIB/CHF AND UTI, URINE +ESBL, BC'S PENDING, ANTIC PT WILL RETURN HOME W/[facility] ONCE MEDICALLY CLEARED, CM WILL CONT TO FOLLOW DC NEEDS.
--- NOTE | 2024-10-12 18:26 | HO.WOUND ---
Wound Consult: Initial 74yr old?[place] [facility] [place] - See progress notes and H&P for detailed history.? Wound consult placed for sacrum.? Patient agreeable to assessment and photo documentation.? Left Sacrum Etiology: Stage 2 Pressure Injury??Present on Admission Measurements: 1cm x 1cm x 0.2cm Wound Bed: pink partial thickness tissue loss Drainage / Odor: None noted Edges: ? attached Poppy wound: ?pink blanchable tissue No Induration, Fluctuance or Warmth noted Pain: tenderness Goals of Treatment: ? Off Load Pressure and Foam dressing Recommendations: 1. Turn and Reposition every 2 hours and as needed for patient comfort.? Use pillows or wedges to support off loading positions. 2. Off Load all bony prominences with use of pillows and heel boots if needed.? Apply Preventative foams where needed. ? 3. Monitor for incontinence and moisture control, use barrier creams when needed for prevention and treatment. 4. Provide adequate and supplemental nutrition.? 5. Order low air loss mattress. 6. When applicable maintain blood glucose levels per Providers order. Sacrum - Off Load Pressure with Q2hr turns. Routine cleansing. Apply skin prep allow to dry. Apply foam dressing, change every 3-5 days and PRN. Peel back and asses Q shift.
[2024-10-13 03:17] VITALS: BP 152/82; PULSE 87; RESP 16; TEMP 36.6; O2SAT 92
[2024-10-13 06:55] LABS: Hematocrit 32.0 % (37.0-47.0); Hemoglobin 10.0 g/dl (12.0-16.0); Mean Corpuscular HGB Conc 31.3 g/dl (31.0-35.0); Mean Corpuscular Hemoglobin 26.2 pg (27.0-33.0); Mean Corpuscular Volume 84.0 fL (80.0-98.0); NRBC Abs Auto 0.000 X10*3/uL (0.0-0.012); NRBC Pct Auto 0.0 /100WBC (0.0-0.2); Platelet Count 162 X10*3/uL (160-400); Red Blood Count 3.81 X10*6/uL (4.20-5.50); White Blood Count 5.9 X10*3/uL (4.8-10.8)
[2024-10-13 07:19] LABS: Anion Gap 14 (12-20); Blood Urea Nitrogen 14 mg/dL (9-16); Calcium 9.7 mg/dL (8.4-10.2); Carbon Dioxide 31 mmol/L (22-29); Chloride 96 mmol/L (96-108); Creatinine Clr Calc Pharmacy 54.5; Estimated Glomerular Filt Rate > 60; Magnesium 1.7 mg/dL (1.6-2.6); Potassium 3.5 mmol/L (3.3-5.1); Sodium 137 mmol/L (135-145)
[2024-10-13 07:23] VITALS: BP 151/78; PULSE 98; RESP 20; TEMP 37.1; O2SAT 96
[2024-10-13 08:51] VITALS: BP 151/78; PULSE 98
[2024-10-13] MEDS: VerapamiL HCL SR 120 MG TABLET.ER PO (08:51)
[2024-10-13] MEDS: 0.9 % Sodium Chloride Flush 3 ML SYRINGE IVFLUSH (08:53)
--- NOTE | 2024-10-13 09:58 | PM.DS ---
DS: Providers Provider Date of Service: 10/13/24 Date of admission: 10/10/24 21:31 Date of discharge: 10/13/24 Primary care physician: Rai Fabian MD Consults: 10/10/24 23:29 Consult to Cardiology Routine Consulting Provider: [facility] Reason for consultation: AFIB RVR, HF BNP 798 10/10/24 23:36 Consult to Case Management Routine Comment: unclear pt's curent home care services, need prese 10/11/24 14:31 Consult to Wound Care Routine Reason for consultation: open area; stage 1 to the sacrum area Attending physician on discharge: Doc Burton Discharging clinician: Lucie Pradhan DS: Diagnosis Discharge Diagnosis (1) CHF (congestive heart failure): Status: Acute (2) Persistent atrial fibrillation: Status: Acute DS: Summary Hospital Course Hospital Course: From H&P on the day of admission Patient is a 74-year-old female with past medical history HFpEF, AFib on Eliquis, UTI, osteoarthritis with bilateral shoulder repair, postmenopausal bleeding on hormone therapy, ascending aortic aneurysm last checked 4.1 cm 2023, hypertension, hyperlipidemia and hypothyroidism presents to the emergency department today with complaints of palpitations with shortness of breath while at the primary care physician's office earlier today. Patient was there following with her primary care physician after being discharged from [facility]. Patient required ICU admission for UTI related issues and then required rehabilitation due to increased weakness and decreased mobility. Patient returned home 2 Fridays ago. Patient has not felt 100% and has been experiencing increased edema in the lower extremities. Patient took 1 dose of oral Lasix this morning as this was held while she was at [facility]. Patient noted increased edema in the lower extremities. Patient stated she knew her primary care physician would start her back on the Lasix. Last echo was 08/2024, EF 60% with noted dilatation of the ascending aorta of 4.1 cm. Patient does not use oxygen at home currently. Patient uses walker to ambulate at this time. Patient no longer drives. Patient arrived with a heart rate of 103, AFib currently on metoprolol 25 mg b.i.d.. Patient's troponin 10.4 and then 11.1.. BNP 798. EKG AFib heart rate 94, QTC uncorrected for 70, with ST and T-wave abnormalities for inferior and anterior lateral ischemia. Patient is not experiencing any hypoxia and there is a low risk concern for PE. Magnesium 1.9 and TSH within normal limits. Patient follows with microsoft exchange architect here in [place], she believes through [facility] and was recently seen. Patient states she is persistently in AFib. Per records from [facility] patient's beta-alexus was decreased as she could not tolerate the higher dose. Patient did receive IV Lasix in the emergency department. Patient remains on room air. UA positive for UTI with culture pending. In the emergency room patient was started on cefepime 2 g IV x1. Lactic acid normal and patient has no leukocytosis or fever. Patient has frequent history of UTI related to E coli and Klebsiella. Both have been susceptible to cefepime and ceftriaxone in the past. Patient does follow with Dr. Childress, a Uro testing and regulating technician in [place]. Patient plans to call to make another appointment as she was seen 6 months prior and has since been hospitalized twice minimally for UTI related issues. Patient denies history of hysterectomy, prolapsed bladder or uterus, history of sling procedure. Patient does not use Estrace cream. Patient currently on hormone therapy but can not explain why. In addition there is question of confusion baseline, and a CT of the head was requested. This could be delirium related to patient's obvious UTI, but patient is currently awake and alert and orientated x3 just experiencing fatigue secondary to ongoing anxiety issues related to a recent inheritance of a condo and patient currently has to move. Patient is prescribed Tylenol with codeine from her back doctor for chronic pain issues and often only uses 1 pill per day Palpitations and sob Likely symptomatic chronic afib with rvr. continued on metoprolol, verapamil, eliquis. seen by cardiology, HR now controlled, palpitations resolved. To discuss with primary micro[employer] exchange architect if candidate for Watchman device acute on chronic hfpef s/p iv lasix, changed back to po 40mg daily, started on Aldactone. echo with preserved EF, mild pulmonary hypertension. seen by cardiology. Uncontrolled blood pressure Losartan added. Outpatient follow-up recommended uti Initially treated with IV Rocephin. Cultures growing E coli resistant to Rocephin and ampicillin, due to AAA fluoroquinolones we will be avoided. Will discharge to complete course of po Bactrim. chronic iron deficiency and inflammatory anemia. no overt bleeding noted. s/p IV iron x 2 days, can continue po iron as outpatient. per cardiology, will discuss possible watchman device with pt primary micro[employer] exchange architect. H/H stable. Time Attestation Discharge Coordination Time (in mins): 36 Quality: Safe Use of Opioids Does Pt have an Active Cancer Diagnosis on the Problem List?: No Quality: Stroke Does the patient have a stroke diagnosis?: No Physical Exam Vital Signs: Vital Signs: Last Vital Signs Temp 98.8 F 10/13/24 07:23 Pulse 98 10/13/24 08:51 Resp 20 10/13/24 07:23 BP 151/78 H 10/13/24 08:51 Pulse Ox 96 10/13/24 07:23 O2 Del Method Room Air 10/13/24 07:23 O2 Flow Rate 2 10/12/24 07:32 BMI result Body Mass Index 24.7 Const: General: cooperative, comfortable, no acute distress, alert and awake Nutritional Appearance: average body habitus Orientation/consciousness: patient oriented x3 Resp: Effort & Inspection: normal respiratory effort, able to speak in complete sentences, no respiratory distress and no use of accessory muscles Cardio: Rate: regular rate GI: Inspection: No distended Palpation (GI): Soft to palpation Neuro: Other: grossly nonfocal General: patient oriented x3 Psych: Affect: normal affect DS: Data Data Completed and Pending Labs on day of discharge: Laboratory Results - last 24 hr 10/13/24 06:44 WBC 5.9 RBC 3.81 L Hgb 10.0 L Hct 32.0 L MCV 84.0 MCH 26.2 L MCHC 31.3 RDW 14.8 Plt Count 162 MPV 10.1 Absolute Nucleated RBC 0.000 Nucleated RBC % (auto) 0.0 Sodium 137 Potassium 3.5 Chloride 96 Carbon Dioxide 31 H Anion Gap 14 BUN 14 Creatinine 0.79 Estim Creat Clear Calc 54.5 Estimated GFR > 60 Random Glucose 110 Calcium 9.7 Magnesium 1.7 Preliminary micro results at discharge 10/10/24 Unknown Urine Culture - Preliminary Urine clean catch - Clean Catch Midstream Escherichia coli 10/10/24 17:08 Blood Culture - Preliminary Blood - Venous No growth after 48 hours. 10/10/24 16:49 Blood Culture - Preliminary Blood - Venous No growth after 48 hours. Discharge Plan Discharge Anticipated Discharge Date/Time: 10/13/24 10:30 Patient Disposition: Home Health Service Discharge Diagnosis: permanent atrial fibrillation UTI acute on chronic CHF hypertension Referrals: [facility] [Outside] - 1 Day Referral Note: RESUMPTION OF SERVICES Rai Fabian MD [Primary Care Provider, Medical] - 1 Week Discharge Medications: New losartan 25 mg Tablet 25 mg PO DAILY 90 Days Qty: 90 0RF Protocol: Hold for SBP< HOLD for SBP < : 90 spironolactone 25 mg Tablet 12.5 mg PO DAILY 90 Days Qty: 45 0RF Protocol: Hold for SBP< HOLD for SBP < : 90 sulfamethoxazole-trimethoprim [Bactrim DS] 800-160 mg tablet 1 tab PO BID Qty: 5 0RF ferrous sulfate 324 mg (65 mg iron) tablet,delayed release (DR/EC) 324 mg PO DAILY 90 Days Qty: 90 0RF Continued hydrocodone-acetaminophen 5-325 mg tablet 1 tab PO BID PRN (Reason: Pain (Scale Score 4-6)) tdpewsobnd-zhbxmnvpslqxn-ucav 50-325-40 mg tablet 1 tab PO Q6H PRN (Reason: Migraine Headache) furosemide 40 mg tablet 40 mg PO DAILY escitalopram oxalate 10 mg tablet 10 mg PO DAILY diphenoxylate-atropine [Lomotil] 2.5-0.025 mg tablet 1 tab PO BID PRN (Reason: diarrhea) Qty: 10 0RF Excedrin Extra Strength 250-250-65 mg Tablet 2 tab PO Q6H PRN (Reason: Pain) metoprolol tartrate 25 mg tablet 25 mg PO DAILY Protocol: Hold for SBP/HR < HOLD for SBP < : 90 HOLD for HR < : 60 mirabegron [Myrbetriq] 25 mg tablet extended release 24 hr 25 mg PO DAILY omeprazole 20 mg Capsule,Delayed Release(Dr/Ec) 20 mg PO DAILY@0630 verapamil 120 mg Tablet Extended Release 120 mg PO DAILY levothyroxine 50 mcg tablet 50 mcg PO DAILY@0600 albuterol sulfate 90 mcg/actuation HFA aerosol inhaler 2 puff inhalation Q6H PRN (Reason: Shortness Of Breath Or Wheezing) Prempro 0.625-2.5 mg tablet 1 tab PO MOWEFR Eliquis 5 mg tablet 5 mg PO BID atorvastatin 40 mg tablet 40 mg PO BEDTIME Discharge Orders: Discharge Order (Routine); Ordered 10/13/24 Ordered By: Lucie Pradhan Activity on Discharge: As tolerated Stand Alone Forms: Patient Portal Discharge page Print Language: Polish Other Ambulatory Orders: Basic Metabolic Panel (Routine) Timeframe: 1 Week Facility: [facility] - Location: Laboratory Ordered By: Lucie Pradhan Care Plan Goals: see below Health Concerns: HFpEF HTN UTI chronic anemia Plan of Treatment: complete course of antibiotics for UTI you have been started on aldactone and losartan for blood pressure control and CHF recheck labs in one week acute on chronic anemia/iron deficiency. po iron replacement. monitor for constipation Call to schedule follow-up appointment with PCP Call to schedule follow-up appointment with Cardiology - consideration for Watchman device home with PT/VNA services Assessment: see discharge summary
[2024-10-13 10:19] VITALS: BMI 24.7
--- NOTE | 2024-10-13 10:21 | MHC.CLN ---
PT WITH INCREASED NUTRITION RISK R/T PRESSURE INJURY PO INTAKE 75-100% DIET RX: CARDIAC RECOMMEND ADDING ENSURE BID TO PROMOTE WOUND HEALING SUPPLEMENT TO PROVIDE 700KCALS, 40G PROTEIN MONITOR PO INTAKE AND ENCOURAGE SUPPLEMENT SEE FULL CLINICAL NUTRITION ASSESSMENT
--- NOTE | 2024-10-13 10:32 | MHC.CM.PN ---
Addendum entered by Aurea Sorenson RN 10/13/24 11:15: S.O FOR TRANSPORT ONCE INFUSION COMPLETE. Original Note: PT MEDICALLY CLEARED FOR DC HOME W/[facility] W/FAMILY FOR TRANSPORT
[2024-10-13] MEDS: Sodium Ferric Gluconat/Sucrose 125 MG in 0.9 % Sodium Chloride 100 ML 100 MG IV (10:48)
[2024-10-13] MEDS: Sulfamethox/Trimeth 800/160 TABLET 1 TAB PO (10:48)
[2024-10-13 11:07] VITALS: BP 149/89; PULSE 88; RESP 20; TEMP 36.8; O2SAT 94
[2024-10-20 11:23] LABS: Centromere Protein A Ab <11 SI (<11); Centromere Protein B Ab <11 SI (<11); Fibrillarin Ab <11 SI (<11); PM SCL 100 Ab <11 SI (<11); PM SCL 75 Ab <11 SI (<11); RNA Polymerase III RP11 Ab <11 SI (<11); RNA Polymerase III RP155 Ab <11 SI (<11); SCL-70 Extractable Nuclear Ab <11 SI (<11); Th-To Ab <11 SI (<11); U1 SNRNP RNP 70KD <11 SI (<11); U1 SNRNP RNP A <11 SI (<11); U1 SNRNP RNP C <11 SI (<11)
== END 2024-10-13 13:30 | disposition home health service (06) | DRG 291 ==
LOC: HO.ED 18:54 → HO.EDOVER 21:42 → HO.IMC 10-11 12:49
PROVIDERS: Internal Medicine; Nurse Practitioner Family; Admitting Provider Student in an Organized Health Care Education/Training Program; Emergency Provider Emergency Medicine; PCP Internal Medicine; Visit Provider Physician Assistant Medical
DX: I11.0 Hypertensive heart disease with heart failure (principal); I50.33 Acute on chronic diastolic (congestive) heart failure; I48.19 Other persistent atrial fibrillation; N39.0 Urinary tract infection, site not specified; Z16.11 Resistance to penicillins; Z16.19 Resistance to other specified beta lactam antibiotics; E03.9 Hypothyroidism, unspecified; R33.9 Retention of urine, unspecified; I71.40 Abdominal aortic aneurysm, without rupture, unspecified; D50.9 Iron deficiency anemia, unspecified; B96.20 Unspecified Escherichia coli [E. coli] as the cause of diseases classified elsewhere; Z20.822 Contact with and (suspected) exposure to COVID-19; Z87.440 Personal history of urinary (tract) infections; Z79.01 Long term (current) use of anticoagulants; Z79.890 Hormone replacement therapy; Z79.899 Other long term (current) drug therapy
CPT/HCPCS: 36415; 70450; 71046; 80048; 80053; 80076; 81001; 82272; 82607; 83540; 83605; 83735; 83880; 84182; 84443; 84484; 85025; 85027; 86235; 86850; 86900; 86901; 87040; 87086; 87088; 87186; 87637; 93005; 93306; 99285; J0692; J0696; J1938; J2916; J3360; J3475; Q9957

== ENCOUNTER → 2024-10-10 14:22 | Outpatient (BNV) | payer MEDICARE, SELFPAY | PROVIDERS: Emergency Provider Emergency Medicine; PCP Internal Medicine; Visit Provider Internal Medicine Cardiovascular Disease | DX: I48.91 Unspecified atrial fibrillation (principal) | CPT/HCPCS: 93010 ==

== ENCOUNTER → 2024-10-10 14:22 | Outpatient (BNV) | payer MEDICARE, SELFPAY | PROVIDERS: PCP Internal Medicine; Visit Provider Radiology Diagnostic Radiology | DX: R41.0 Disorientation, unspecified (principal); R06.02 Shortness of breath | CPT/HCPCS: 71046 ==

== ENCOUNTER 2024-10-10 21:31 | Outpatient (BNV) | payer MEDICARE, SELFPAY | END 2024-10-11 17:00 | PROVIDERS: Admitting Provider Student in an Organized Health Care Education/Training Program; Emergency Provider Emergency Medicine; PCP Internal Medicine; Visit Provider Internal Medicine Cardiovascular Disease | DX: I27.20 Pulmonary hypertension, unspecified (principal); I34.0 Nonrheumatic mitral (valve) insufficiency; I35.1 Nonrheumatic aortic (valve) insufficiency | CPT/HCPCS: 93306 ==

== ENCOUNTER → 2024-10-10 21:31 | Outpatient (BNV) | payer MEDICARE, SELFPAY | PROVIDERS: Admitting Provider Student in an Organized Health Care Education/Training Program; Emergency Provider Emergency Medicine; PCP Internal Medicine; Visit Provider Internal Medicine Cardiovascular Disease | DX: I50.9 Heart failure, unspecified (principal); I48.19 Other persistent atrial fibrillation | CPT/HCPCS: 99233 ==

== ENCOUNTER → 2024-10-10 21:31 | Outpatient (BNV) | payer MEDICARE, SELFPAY | PROVIDERS: Admitting Provider Student in an Organized Health Care Education/Training Program; Emergency Provider Emergency Medicine; PCP Internal Medicine; Visit Provider Nurse Practitioner Family | DX: I50.30 Unspecified diastolic (congestive) heart failure (principal); I48.19 Other persistent atrial fibrillation | CPT/HCPCS: 99223; 99232; 99239 ==

== ENCOUNTER 2024-10-31 14:46 | Outpatient (REF) | payer MEDICARE, SELFPAY ==
--- OUTSIDE RECORDS SUMMARY | 2024-10-31 15:14 | XMS_ITS | Patient Health Record ---
Author Organization [facility] Address [address] [place] [address] Care Team Providers Care Neurocritical Care Physician Name Role Phone Rai Fabian MD Primary Care Provider Travis Perez Unavailable [phone] Allergies No Known Allergies Results Component Value Reference Range Notes GI PANEL Reviewed date:08/11/2024 11:14:03 AM Interpretation: Performing Lab:[facility], [address] [place] [id number] Notes/Report: Campylobacter Not Detected Not Detect. Plesiomonas [...] is performed by Multiplexed PCR, utilizing the [employer] Array. Reason For Referral No Information Medications [...] 25 MG Oral for 90 Ac tive Doahsozwup-SERT-Hwiiejva 50-325-40 MG Oral for 30 Active HYDROcodone-Acetaminophen [...] Problem Status W/U Status Risk Notes Problem 643728878 Encounter for screening for malignant neoplasm of colon (Z12.11) Active confirmed Problem 589717687 History of adenomatous polyp of colon (Z86.010) Active confirmed Problem Diverticular disease of colon (153934999) Diverticulosis of large intestine without perforation or abscess without bleeding (K57.30) Active confirmed Problem 138640409 Irritable bowel syndrome with diarrhea (K58.0) Active confirmed Problem Melena (4792026) Melena (K92.1) Active confirme d Problem Iron deficiency anemia (40202612) Iron deficiency anemia (D50.9) Active confirmed Problem Gastritis (1668984) Gastritis (K29.70) Active confirmed Problem 36608461 Iron deficiency anemia, unspecified iron deficiency anemia type (D50.9) Active confirmed Problem 32666575 Diarrhea, unspecified type (R19.7) Active confirmed Problem 37801881 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) Active confirmed Problem 3110966205796 Clostridium difficile diarrhea (A04.72) Active confirmed Problem 85932901 Diarrhea of presumed infectious origin (R19.7) Active confirmed Problem 126722246429030 History of Clostridioides difficile infection (Z86.19) Active confirmed Problem Acute diarrhea (257528987) Acute diarrhea (R19.7) Active confirmed Encounters Encounter Location Date Provider Diagnosis [facility] [address] [place] [address] 08/04/2024 Travis Taylor Plan Of Treatment Pending [...] Date MEDICARE OF [place] [address] [place] [address] [id number] JAKOB BECERRIL Self - patient is the insured [employer] ATT[employer] CLAIMS [address] [place] [address] [id number] JAKOB BECERRIL Self - patient is the insured Medical (General) History Medical History History ICD Code Stroke- August 2016--no residu al--received TPA at [facility]--on Eliquis--? for Afib or SVT at the time of the CVA Hypertension Urinary incontinence Seasonal allergies Denies AR,DM,Lung disease,renal disease Hyperlipidemia Arthritis Hypothyroidism EGD in [...]
--- OUTSIDE RECORDS SUMMARY | 2024-10-31 15:14 | XMS_ITS | Patient Health Record ---
[facility] Address [address] [place] [address] Care Team Providers Care Wire Tester Name Role Phone Rai Fabian MD Primary Care Provider Valente Mendoza Unavailable [phone] Allergies No Known Allergies Reason For Referral [...] Status Risk Notes Problem Acquired hallux valgus (97852672) Hallux valgus (acquired), left foot (M20.12) Active confirmed Problem Localized, primary osteoarthritis of the ankle and/or foot (061683057) Primary osteoarthrit is, right ankle and foot (M19.071) Active confirmed Problem Localized, primary osteoarthritis of the ankle and/or foot (365961447) Primary osteoarthrit is, left ankle and foot (M19.072) Active confirmed Problem Acquired hallux valgus (29411194) Hallux valgus (acquired), right foot (M20.11) Active confirmed Problem Acquired hammer toe of right foot (4213378125282900) Other hammer toe(s) (acquired), right foot (M20.41) Active confirmed Problem Acquired hammer toe of left foot (0683118141163577) Other hammer toe(s) (acquired), left foot (M20.42) Active confirmed Plan Of Treatment Pending Test Test Name Order Date X ray : Ankle, left 2V 02/12/2021 X ray : Foot, left 2V 06/25/2015 X ray : Foot, right 2V 06/25/2015 X ray : Foot, left 3V 02/12/2021 X ray : Foot, right 3V 04/28/2016 13955-YIFPTDJ NAIL, 1-5 08/16/2014, J0702- INJECT or DRAIN, JOINT/BUR SA 09/27/2018, J0702- INJECT or DRAIN, JOINT/BUR SA 03/25/2019, J0702- INJECT or DRAIN, JOINT/BUR SA 02/12/2021, J0702- INJECT or DRAIN, JOINT/BUR SA 06/12/2021, J0702- INJECT or DRAIN, JOINT/BUR SA 10/03/2019, J0702- INJECT or DRAIN, JOINT/BUR SA 09/03/2020, J0702- INJECT or DRAIN, JOINT/BUR SA 12/07/2020, O1744-IITXY/INJECT, JOINT/BURSA 0 12/07/2020, B5161-TOGKQ/INJECT, JOINT/BURSA 0 10/03/2019, K4026-GECCD/INJECT, JOINT/BURSA 0 06/12/2021, T9032-JQQYH/INJECT, JOINT/BURSA 0 03/25/2019, T4113-HPQOJ/INJECT, JOINT/BURSA 0 09/27/2018, A0659-VDAID/INJECT, JOINT/BURSA 0 12/01/2016, U8851-LYWVB/INJECT, JOINT/BURSA 1 04/18/201600477, V1491-RSDXH/INJECT, JOINT/BURSA 0 2018 73165- Ganglion Cyst Injection/Aspiratio n 10/03/2019 37515, J0702- Neuroma/Injection 02/17/20 17 34136, J0702- Neuroma/Injection 08/06/19 16 90779, J0702- Neuroma/Injection 04/03/19 17 70959, J0702- Neuroma/Injection 07/16/19 17 47605, J0702- Neuroma/Injection 09/04/19 17 74913, J0702- Neuroma/Injection 12/02/19 17 Insurance Providers Payer Name Payer Address Payer Phone Subscriber Number Group Number Insured Name Patient Relationship to Insured Coverage Start Date Coverage End Date Medicare National [employer] [address] [place] [address] [id number] Mandie Gonzalez Self - patient is the insured [employer] [address] [place] [address] [id number] Mandie Gonzalez Self - patient is the insured Medical (General) History Medical History History ICD Code Arthritis Back,Hip,and Knee pain Chicken pox Measles Mumps Hypertension Thyroid disorder Surgical History Surgery Date(Month/Year) rotator cuff tear repair 09/2013 hand/wrist 04/2012 uterus surgery 09/2010 right foot - [facility] 04/2018 RFA Back 08/31/20 R shoulder replacement 11/06/2020 Hospitalization History Reason Date(Month/Year) [facility]- chest xray [facility]- UTI 1 week /Rehab 3weeks 2021 admitted to [facility] DX- stroke - discharged 09/01/2016 08/28/2016
--- OUTSIDE RECORDS SUMMARY | 2024-10-31 15:14 | XMS_ITS | Encounter Summary ---
Author Organization [facility] Address [address] [place] [address] Care Team Providers Care Tire Fabric Inspector Name Role Phone Luanne Card MD Primary Care Provider + Encounter Details Date Type Department Care Team (Late st Contact Info) Description 09/21/2024 Lab Requisition [facility] - Main Lab [address] [place] [address] Luanne Card MD [address] [address] Chronic kidney disease, stage 3 [...] LAB CHEMISTRY METHOD 09/21/2024 7:01 AM EDT [facility] Potassium 3.8 3.5 - 5.5 mmol/L LAB CHEMISTRY METHOD 09/21/2024 7:01 AM [facility] Chloride 98 96 - 110 mmol/L LAB CHEMISTRY METHOD 09/21/2024 7:01 AM [facility] CO2 35(H) 21 - 32 mmol/L LAB CHEMISTRY METHOD 09/21/2024 7:01 AM [facility] Anion Gap 3 3 - 11 LAB CHEMISTRY METHOD 09/21/2024 7:01 AM [facility] Glucose 73 70 - 100 mg/dL LAB CHEMISTRY METHOD 09/21/2024 7:01 AM [facility] BUN 18 5 - 25 mg/dL LAB CHEMISTRY METHOD 09/21/2024 7:01 AM [facility] Creatinine 1.05 0.50 - 1.10 mg/dL LAB CHEMISTRY METHOD 09/21/2024 7:01 AM [facility] LAB eGFR 55(L) >=60 mL/min/1. 73m2 LAB CHEMISTRY METHOD 09/21/2024 7:01 AM [facility] LAB Comment:Calculation based on the Chronic Kidney Disease Epidemiology Collaboration (CKD-EPI) equation refit without adjustment for race. BUN/Creatinine Ratio 17.1 LAB CHEMISTRY METHOD 09/21/2024 7:01 AM [facility] Calcium 9.4 8.5 - 10.5 mg/dL LAB CHEMISTRY METHOD 09/21/2024 7:01 AM [facility] Blood Venous blood specimen / Unknown Venipuncture / Unknown 09/21/2024 5:18 AM EDT 09/21/2024 6:30 AM EDT us Luanne Card MD LAB BLOOD ORDERABLES Fin al Result [facility] [address] [place] [address], documented in this encounter Visit Diagnoses Diagnosis Chronic kidney disease, stage 3 unspecified (CMS/[facility] V24, CMS/[facility] V28) Hypo-osmolality and hyponatremia documented in this encounter Additional Health Concerns Infection Onset Date Last Indicated Resolved Time C. difficile Rule-Out 09/23/2024 09/23/20242024 11:33 AM EDT documented as of this encounter Care Teams Tire Fabric Inspector Relationship Specialty Start Date End Date Luanne Card MD [address] [place] [address] PCP - General Family Medicine 09/14/24 documented as of this encounter
[2024-10-31 15:19] LABS: Appearance Urine Clear; Glucose Urine UA Negative (Negative); PH 5.5 (5.0-9.0); Specific Gravity - Urine >= 1.030 (1.005-1.025); UMIC TRIGGER UACC YES
[2024-10-31 15:27] LABS: UACC Culture Trigger YES
[2024-10-31 15:43] LABS: Alanine Aminotransferase 11 U/L (0-31); Albumin Level 3.9 g/dL (3.5-5.0); Alkaline Phosphatase 75 U/L (39-117); Aspartate Amino Transferase 44 U/L (5-31); Blood Urea Nitrogen 14 mg/dL (9-16); Cholesterol 125 mg/dL (<200); Estimated Glomerular Filt Rate 49; HDL Cholesterol 55 mg/dL (>40); Total Protein 6.8 g/dL (6.5-8.0); Triglycerides 93 mg/dL (<150)
[2024-10-31 18:57] LABS: Reflex LDLD? No
--- OUTSIDE RECORDS SUMMARY | 2024-11-28 20:00 | XMS_ITS | Clinical Summary ---
Author Organization Unknown Care Team Providers Care Content Analyst Name Role Phone BARRETT HOOPER, BOBBI Unavailable Unavailable CHICO RN, ARTUR Unavailable Unavailab arpit BRISENO PT, KENDRA Unavailable Unavailable DANYA SCRATCHER, CHI Unavailable Unavailable READING OT, MARKUS Unavailable Unavailable Payers Payer Name Policy Type Policy Number Effective Date Expira tion Date MEDICARE.NGS.PDGM [id number] Problems Condition Name Condition Details Condition Category Status Onset Date Resolution Date Last Treatment Date Treating Clinician Comments HYP HRT AND CHR KDNY DIS W HRT FAIL AND STG 1-4/UNSP CHR KDNY Active 10-10 00:00: 00 ACUTE ON CHRONIC DIASTOLIC (CONGESTIVE) HEART FAILURE Active 10-10 00:00: 00 CHRONIC KIDNEY DISEASE, STAGE 3A Active 09-13 00:00: 00 ANEMIA IN CHRONIC KIDNEY DISEASE Active 09-21 00:00: 00 URINARY TRACT INFECTION, SITE NOT SPECIFIED Active 10-10 00:00: 00 UNSP ESCHERICHIA COLI THE CAUSE OF DISEASES CLASSD ELSWHR Active 10-10 00:00: 00 OTHER PERSISTENT ATRIAL FIBRILLATION Active 10-10 00:00: 00 METABOLIC ENCEPHALOPAT HY Active 09-13 00:00: 00 OTHER CHRONIC PAIN Active 09-13 00:00: 00 POLYOSTEOART HRITIS, UNSPECIFIED Active 09-13 00:00: 00 OTHER THROMBOPHILI A Active 09-21 00:00: 00 HYPO-OSMOLAL ITY AND HYPONATREMIA Active 09-21 00:00: 00 HYPOKALEMIA Active 09-21 00:00: 00 ABDOMINAL AORTIC ANEURYSM, WITHOUT RUPTURE, UNSPECIFIED Active - 00:00: 00 IRON DEFICIENCY ANEMIA, UNSPECIFIED Active 03-23 00:00: 00 OTHER SPECIFIED ANXIETY DISORDERS Active 09-21 00:00: 00 UNSPECIFIED ASTHMA, UNCOMPLICATE D Active 09-21 00:00: 00 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, NOT INTRACTABLE, W/O STAT MIGR Active 09-21 00:00: 00 GASTRO-ESOPH AGEAL REFLUX DISEASE WITHOUT ESOPHAGITIS Active 09-21 00:00: 00 HYPOTHYROIDI SM, UNSPECIFIED Active 09-21 00:00: 00 OVERWEIGHT Active 09-21 00:00: 00 BODY MASS INDEX [BMI] 27.0-27.9, ADULT Active 03-23 00:00: 00 MEDIA MANAGER (CURRENT) USE OF ANTICOAGULAN TS Active 09-21 00:00: 00 PERSONAL HISTORY OF URINARY (TRACT) INFECTIONS Active 09-21 00:00: 00 PRESENCE OF UNSPECIFIED ARTIFICIAL KNEE JOINT Active 03-23 00:00: 00 Allergies, Adverse Reactions, Alerts Allergy Name Allergy Type Status Severity Reaction(s) Onset Date Inactive Date Treating Clinician Comments NO KNOWN ALLERGIES Propensity to adverse reactions Active 10-01 09:25: 28 Medications Ordered Medication Name Filled Medication Name Start Date Stop Date Current Medication? Ordering Clinician Indication Dosage Frequency Signature (SIG) Comments Components Prempro 0.625 mg-2.5 mg tablet 3-10 00:00: 00 06-22 00:00 :00 No [id number] Per instruc tions Per instructio ns (route: oral) Med Classific ation: Endocrine Myrbetriq 25 mg tablet,exte nded release 2020-03 00:00: 00 06-21 23:59 :00 No [id number] OVERACTIVE BLADDER 1 tablet DAILY 1 tablet DAILY (route: oral) Med Classific ation: Genitouri nary Therapy levothyroxi ne 50 mcg tablet 1- 00:00: 00 11-19 23:59 :00 No [id number] THYROID 1 tablet DAILY 1 tablet DAILY (route: oral) Med Classific ation: Endocrine verapamil ER (SR) 120 mg tablet,exte nded release 1-05 00:00: 00 06-22 00:00 :00 No [id number] Per instruc tions EVERY DAY Per instructio ns EVERY DAY (route: oral) Med Classific ation: Cardiovas cular Therapy Agents atorvastati n 40 mg tablet 2-15 00:00: 00 11-19 23:59 :00 No [id number] CHOLESTEROL 1 tablet DAILY 1 tablet DAILY (route: oral) Med Classific ation: Cardiovas cular Therapy Agents metoprolol succinate ER 50 mg tablet,exte nded release 24 hr 2020-03 2-27 00:00: 00 11-19 23:59 :00 No [id number] HTN 1 tablet DAILY 1 tablet DAILY (route: oral) Med Classific ation: Cardiovas cular Therapy Agents cefuroxime axetil 250 mg tablet 2-19 00:00: 00 06-21 23:59 :00 No [id number] UTI 1 tablet DAILY 1 tablet DAILY (route: oral) Med Classific ation: Anti-Infe ctive Agents ondansetron HCl 4 mg tablet 2-03 00:00: 00 11-19 23:59 :00 No [id number] NAUSEA 1 tablet DAILY 1 tablet DAILY (route: oral) Med Classific ation: Gastroint estinal Therapy Agents lisinopril 20 mg-hydrochl orothiazide 12.5 mg tablet 2020-03 2-16 00:00: 00 06-21 23:59 :00 No [id number] HTN 1 tablet DAILY 1 tablet DAILY (route: oral) Med Classific ation: Cardiovas cular Therapy Agents Celebrex 100 mg capsule 4-02 00:00: 00 11-19 23:59 :00 No [id number] PAIN 1 capsule DAILY 1 capsule DAILY (route: oral) Med Classific ation: Analgesic , Anti-infl ammatory or Antipyret ic cyclobenzap rine 10 mg tablet 4-02 00:00: 00 11-19 23:59 :00 No [id number] MUSCLE RELAXER 1 tablet 2 TIMES DAILY 1 tablet 2 TIMES DAILY (route: oral) Med Classific ation: Locomotor System Eliquis 5 mg tablet 06-22 00:00: 00 11-19 23:59 :00 No [id number] BLOOD THINNER 1 tablet 2 TIMES DAILY 1 tablet 2 TIMES DAILY (route: oral) Med Classific ation: Hematolog ical Agents gabapentin 400 mg capsule 06-22 00:00: 00 11-19 23:59 :00 No [id number] PAIN 1 capsule DAILY 1 capsule DAILY (route: oral) Med Classific ation: Central Nervous System Agents hydrocodone 5 mg-acetamin ophen 325 mg tablet 06-22 00:00: 00 11-19 23:59 :00 No [id number] PAIN 1 tablet 2 TIMES DAILY 1 tablet 2 TIMES DAILY (route: oral) Med Classific ation: Analgesic , Anti-infl ammatory or Antipyret ic lactulose 10 gram/15 mL (15 mL) oral solution 06-22 00:00: 00 11-19 23:59 :00 No [id number] REDUCE AMMONIA 15 mL 3 TIMES A WEEK 15 mL 3 TIMES A WEEK (route: oral) Med Classific ation: Gastroint estinal Therapy Agents omeprazole 20 mg capsule,del ayed release 06-22 00:00: 00 11-19 23:59 :00 No [id number] GERD 1 capsule DAILY 1 capsule DAILY (route: oral) Med Classific ation: Gastroint estinal Therapy Agents verapamil 120 mg tablet 06-22 00:00: 00 11-19 23:59 :00 No [id number] HTN 1 tablet DAILY 1 tablet DAILY (route: oral) Med Classific ation: Cardiovas cular Therapy Agents hydrocodone 5 mg-acetamin ophen 325 mg tablet 09-20 00:00: 00 Yes [id number] PAIN 1 tablet EVERY 6 HOURS 1 tablet EVERY 6 HOURS (route: oral) Med Classific ation: Analgesic , Anti-infl ammatory or Antipyret ic ondansetron HCl 4 mg tablet 6- 00:00: 00 10-14 23:59 :00 No [id number] NAUSEA 4 mg EVERY 8 HOURS 4 mg EVERY 8 HOURS (route: oral) Med Classific ation: Gastroint estinal Therapy Agents atorvastati n 40 mg tablet 10-01 00:00: 00 Yes [id number] CHOLESTEROL 1 tablet DAILY 1 tablet DAILY (route: oral) Med Classific ation: Cardiovas cular Therapy Agents Eliquis 5 mg tablet 10-01 00:00: 00 Yes [id number] PREVENT BLOOD CLOTS 1 tablet 2 TIMES DAILY 1 tablet 2 TIMES DAILY (route: oral) Med Classific ation: Hematolog ical Agents escitalopra m 10 mg tablet 10-01 00:00: 00 Yes [id number] DEPRESSION 1 tablet DAILY 1 tablet DAILY (route: oral) Med Classific ation: Central Nervous System Agents Excedrin Migraine 250 mg-250 mg-65 mg tablet 10-01 00:00: 00 Yes [id number] HEADACHE 2 tablet EVERY 6 HOURS 2 tablet EVERY 6 HOURS (route: oral) Med Classific ation: Analgesic , Anti-infl ammatory or Antipyret ic furosemide 40 mg tablet 10-01 00:00: 00 Yes [id number] EDEMA 1 tablet DAILY 1 tablet DAILY (route: oral) Med Classific ation: Cardiovas cular Therapy Agents levothyroxi ne 50 mcg tablet 10-01 00:00: 00 Yes [id number] THYROID 1 tablet DAILY 1 tablet DAILY (route: oral) Med Classific ation: Endocrine melatonin 3 mg tablet 10-01 00:00: 00 10-14 23:59 :00 No [id number] SLLEP 2 tablet BEDTIME 2 tablet BEDTIME (route: oral) Med Classific ation: Central Nervous System Agents metoprolol tartrate 25 mg tablet 10-01 00:00: 00 10-03 14:32 :54.2 6 No [id number] HTN 1 tablet 2 TIMES DAILY 1 tablet 2 TIMES DAILY (route: oral) Med Classific ation: Cardiovas cular Therapy Agents mirabegron ER 25 mg tablet,exte nded release 24 hr 10-01 00:00: 00 Yes [id number] SLEEP 1 tablet DAILY 1 tablet DAILY (route: oral) Med Classific ation: Genitouri nary Therapy omeprazole 20 mg capsule,del ayed release 10-01 00:00: 00 Yes [id number] GERD 1 capsule DAILY 1 capsule DAILY (route: oral) Med Classific ation: Gastroint estinal Therapy Agents trazodone 50 mg tablet 10-01 00:00: 00 10-14 23:59 :00 No [id number] SLEEP 1 tablet BEDTIME 1 tablet BEDTIME (route: oral) Med Classific ation: Central Nervous System Agents verapamil 120 mg tablet 10-01 00:00: 00 Yes [id number] HTN 1 tablet DAILY 1 tablet DAILY (route: oral) Med Classific ation: Cardiovas cular Therapy Agents metoprolol tartrate 25 mg tablet 10-03 00:00: 00 10-14 23:59 :00 No [id number] blood pressure 1 tablet 2 TIMES DAILY 1 tablet 2 TIMES DAILY (route: oral) Med Classific ation: Cardiovas cular Therapy Agents albuterol sulfate HFA 90 mcg/actuati on aerosol inhaler 10-14 00:00: 00 Yes [id number] SOB 2 puff EVERY 6 HOURS 2 puff EVERY 6 HOURS (route: inhalation ) Med Classific ation: Respirato ry Therapy Agents Bactrim DS 800 mg-160 mg tablet 10-14 00:00: 00 10-16 23:59 :00 No [id number] UTI 1 tablet 2 TIMES DAILY 1 tablet 2 TIMES DAILY (route: oral) Med Classific ation: Anti-Infe ctive Agents Iron (ferrous sulfate) 325 mg (65 mg iron) tablet 10-14 00:00: 00 Yes [id number] ANEMIA 1 tablet DAILY 1 tablet DAILY (route: oral) Med Classific ation: Electroly te Balance-N utritiona l Products Lomotil 2.5 mg-0.025 mg tablet 10-14 00:00: 00 Yes [id number] DIARRHEA 1 tablet 2 TIMES DAILY 1 tablet 2 TIMES DAILY (route: oral) Med Classific ation: Gastroint estinal Therapy Agents losartan 25 mg tablet 10-14 00:00: 00 Yes [id number] HTN 1 tablet DAILY 1 tablet DAILY (route: oral) Med Classific ation: Cardiovas cular Therapy Agents metoprolol tartrate 25 mg tablet 10-14 00:00: 00 Yes [id number] HTN 1 tablet DAILY 1 tablet DAILY (route: oral) Med Classific ation: Cardiovas cular Therapy Agents Prempro 0.625 mg-2.5 mg tablet 10-14 00:00: 00 Yes [id number] HORMONES 1 tablet 3 TIMES A WEEK 1 tablet 3 TIMES A WEEK (route: oral) Med Classific ation: Endocrine spironolact one 25 mg tablet 10-14 00:00: 00 Yes [id number] CHF 0.5 tablet DAILY 0.5 tablet DAILY (route: oral) Med Classific ation: Cardiovas cular Therapy Agents Vital Signs Vital Name Observation Time Observation Value Commen ts Temperature 2024-10-31 13:57:00.000 97.9 [degF] Temperature 2024-10-27 09:09:00.000 97.3 [degF] Temperature 2024-10-26 15:49:00.000 97.1 [degF] Temperature 2024-10-25 11:24:00.000 98 [degF] Temperature 2024-10-24 13:43:00.000 98 [degF] Temperature 2024-10-20 11:00:00.000 97.6 [degF] Temperature 2024-10-18 13:40:00.000 97.6 [degF] Temperature 2024-10-17 13:34:00.000 97.8 [degF] Temperature 2024-10-14 10:30:00.000 98.7 [degF] Temperature 2024-10-10 11:26:00.000 98 [degF] Temperature 2024-10-06 11:04:00.000 98.2 [degF] Temperature 2024-10-05 08:55:00.000 97.3 [degF] Temperature 2024-10-03 13:59:00.000 98.1 [degF] Temperature 2024-10-01 18:55:00.000 97.3 [degF] BMI (%) 2024-10-14 10:24:05.000 27 kg/m2 BMI (%) 2024-10-01 09:29:55.000 27 kg/m2 Height 2024-10-14 10:24:02.000 65 [in_us] Height 2024-10-01 09:29:49.000 65 [in_us] Pulse 2024-10-31 13:57:00.000 93 /min Pulse 2024-10-27 09:09:00.000 98 /min Pulse 2024-10-26 15:49:00.000 90 /min Pulse 2024-10-25 11:24:00.000 80 /min Pulse 2024-10-24 13:43:00.000 79 /min Pulse 2024-10-20 11:00:00.000 95 /min Pulse 2024-10-18 13:40:00.000 58 /min Pulse 2024-10-17 13:34:00.000 75 /min Pulse 2024-10-14 10:30:00.000 90 /min Pulse 2024-10-10 11:26:00.000 92 /min Pulse 2024-10-06 11:04:00.000 78 /min Pulse 2024-10-05 08:55:00.000 82 /min Pulse 2024-10-03 13:59:00.000 87 /min Pulse 2024-10-01 18:55:00.000 76 /min O2 Saturation (%) 2024-10-31 13:57:00.000 92 % O2 Saturation (%) 2024-10-27 09:09:00.000 98 % O2 Saturation (%) 2024-10-26 15:49:00.000 93 % O2 Saturation (%) 2024-10-25 11:24:00.000 98 % O2 Saturation (%) 2024-10-24 13:43:00.000 93 % O2 Saturation (%) 2024-10-20 11:00:00.000 94 % O2 Saturation (%) 2024-10-18 13:40:00.000 96 % O2 Saturation (%) 2024-10-17 13:34:00.000 93 % O2 Saturation (%) 2024-10-14 10:30:00.000 97 % O2 Saturation (%) 2024-10-10 11:26:00.000 95 % O2 Saturation (%) 2024-10-06 11:04:00.000 94 % O2 Saturation (%) 2024-10-05 08:55:00.000 93 % O2 Saturation (%) 2024-10-03 13:59:00.000 92 % Respirations 2024-10-31 13:57:00.000 18 /min Respirations 2024-10-27 09:09:00.000 18 /min Respirations 2024-10-26 15:49:00.000 16 /min Respirations 2024-10-25 11:24:00.000 18 /min Respirations 2024-10-24 13:43:00.000 18 /min Respirations 2024-10-20 11:00:00.000 18 /min Respirations 2024-10-18 13:40:00.000 18 /min Respirations 2024-10-17 13:34:00.000 18 /min Respirations 2024-10-14 10:30:00.000 18 /min Respirations 2024-10-10 11:26:00.000 20 /min Respirations 2024-10-06 11:04:00.000 18 /min Respirations 2024-10-05 08:55:00.000 18 /min Respirations 2024-10-03 13:59:00.000 18 /min Respirations 2024-10-01 18:55:00.000 18 /min Weight (lbs) 2024-10-14 10:24:05.000 168 [lb_av] Weight (lbs) 2024-10-05 08:55:00.000 167 [lb_av] Weight (lbs) 2024-10-01 09:29:55.000 168 [lb_av] Systolic Blood Pressure 2024-10-31 13:57:00.000 122 mm [Hg] Systolic Blood Pressure 2024-10-27 09:09:00.000 105 mm [Hg] Systolic Blood Pressure 2024-10-26 15:52:00.000 90 mm[ Hg] Systolic Blood Pressure 2024-10-25 11:24:00.000 80 mm[ Hg] Systolic Blood Pressure 2024-10-24 13:43:00.000 80 mm[ Hg] Systolic Blood Pressure 2024-10-20 11:00:00.000 96 mm[ Hg] Systolic Blood Pressure 2024-10-18 13:40:00.000 108 mm [Hg] Systolic Blood Pressure 2024-10-17 13:34:00.000 100 mm [Hg] Systolic Blood Pressure 2024-10-14 10:30:00.000 110 mm [Hg] Systolic Blood Pressure 2024-10-10 11:26:00.000 140 mm [Hg] Systolic Blood Pressure 2024-10-06 11:04:00.000 106 mm [Hg] Systolic Blood Pressure 2024-10-05 08:55:00.000 110 mm [Hg] Systolic Blood Pressure 2024-10-03 13:59:00.000 95 mm[ Hg] Systolic Blood Pressure 2024-10-01 18:55:00.000 110 mm [Hg] Diastolic Blood Pressure 2024-10-31 13:57:00.000 70 mm [Hg] Diastolic Blood Pressure 2024-10-27 09:09:00.000 70 mm [Hg] Diastolic Blood Pressure 2024-10-26 15:52:00.000 60 mm [Hg] Diastolic Blood Pressure 2024-10-25 11:24:00.000 55 mm [Hg] Diastolic Blood Pressure 2024-10-24 13:43:00.000 58 mm [Hg] Diastolic Blood Pressure 2024-10-20 11:00:00.000 52 mm [Hg] Diastolic Blood Pressure 2024-10-18 13:40:00.000 60 mm [Hg] Diastolic Blood Pressure 2024-10-17 13:34:00.000 70 mm [Hg] Diastolic Blood Pressure 2024-10-14 10:30:00.000 80 mm [Hg] Diastolic Blood Pressure 2024-10-10 11:26:00.000 80 mm [Hg] Diastolic Blood Pressure 2024-10-06 11:04:00.000 72 mm [Hg] Diastolic Blood Pressure 2024-10-05 08:55:00.000 60 mm [Hg] Diastolic Blood Pressure 2024-10-03 13:59:00.000 70 mm [Hg] Diastolic Blood Pressure 2024-10-01 18:55:00.000 64 mm [Hg] Plan of Treatment Planned Activity Planned Date Details Comments Future Scheduled Test FALL REDUC TION MANAGEMENT; RN TO ASSESS AND OBSERVE, VENEER MEASURER/COOK BOX FILLER TO OBSERVE FALL RISK FACTORS AND EDUCATE PATIENT/CAREGIVER ON STRATEGIES TO MINIMIZE THE RISK OF FALLING. [code = FALL REDUCTION MANAGEMENT; RN TO ASSESS AND OBSERVE, VENEER MEASURER/COOK BOX FILLER TO OBSERVE FALL RISK FACTORS AND EDUCATE PATIENT/CAREGIVER ON STRATEGIES TO MINIMIZE THE RISK OF FALLING.] Future Scheduled Test GENITOURIN JULEE MANAGEMENT; RN TO ASSESS AND TEACH, VENEER MEASURER/COOK BOX FILLER TO OBSERVE AND TEACH RELATED TO ALTERED GENITOURINARY STATUS TO MINIMIZE COMPLICATIONS AND REDUCE HOSPITALIZATION. [code = GENITOURINARY MANAGEMENT; RN TO ASSESS AND TEACH, VENEER MEASURER/COOK BOX FILLER TO OBSERVE AND TEACH RELATED TO ALTERED GENITOURINARY STATUS TO MINIMIZE COMPLICATIONS AND REDUCE HOSPITALIZATION.] Future Scheduled Test URINARY TR ACT INFECTION MANAGEMENT; RN/COOK BOX FILLER/VENEER MEASURER TO PROVIDE SKILLED TEACHING AND SELF- CARE MANAGEMENT RELATED TO UTI TO MINIMIZE COMPLICATIONS AND REDUCE THE RISK OF HOSPITALIZATION. [code = URINARY TRACT INFECTION MANAGEMENT; RN/COOK BOX FILLER/VENEER MEASURER TO PROVIDE SKILLED TEACHING AND SELF- CARE MANAGEMENT RELATED TO UTI TO MINIMIZE COMPLICATIONS AND REDUCE THE RISK OF HOSPITALIZATION.] Future Scheduled Test RN TO OBSE RVE, ASSESS, EVALUATE, AND DEVELOP AN INDIVIDUALIZED PLAN OF CARE. AGENCY MAY ACCEPT ORDERS FROM CONSULTING PHYSICIANS RN TO OBSERVE AND ASSESS, VENEER MEASURER/COOK BOX FILLER TO OBSERVE FOR RISK FOR FALLS AND INSTRUCT IN FALL PREVENTION, HOME SAFETY, MEDICATION MANAGEMENT, INFECTION PREVENTION, AND NUTRITION MANAGEMENT. RN/VENEER MEASURER/COOK BOX FILLER NURSE MAY PERFORM O2 SATURATION LEVEL ON ADMISSION AND PRN FOR RESP STATUS CHANGES FOR RN TO ASSESS/VENEER MEASURER TO OBSERVE PATIENT, WITH NOTIFICATION TO THE PHYSICIAN IF SATURATION IS 90% IN THE ABSENCE OF MORE SPECIFIC PARAMETERS FROM THE PHYSICIAN. AGENCY MAY PERFORM A RESUMPTION OF CARE VISIT FOLLOWING ANY HOSPITAL ADMISSION. RN/VENEER MEASURER/COOK BOX FILLER TO MONITOR CO-MORBID CONDITIONS LISTED ON THE PLAN OF CARE AND ANY NEW CONDITIONS THAT PRESENT THEMSELVES DURING THIS EPISODE TO IDENTIFY CHANGES AND INTERVENE TO MINIMIZE COMPLICATIONS. [code = RN TO OBSERVE, ASSESS, EVALUATE, AND DEVELOP AN INDIVIDUALIZED PLAN OF CARE. AGENCY MAY ACCEPT ORDERS FROM CONSULTING PHYSICIANS RN TO OBSERVE AND ASSESS, VENEER MEASURER/COOK BOX FILLER TO OBSERVE FOR RISK FOR FALLS AND INSTRUCT IN FALL PREVENTION, HOME SAFETY, MEDICATION MANAGEMENT, INFECTION PREVENTION, AND NUTRITION MANAGEMENT. RN/VENEER MEASURER/COOK BOX FILLER NURSE MAY PERFORM O2 SATURATION LEVEL ON ADMISSION AND PRN FOR RESP STATUS CHANGES FOR RN TO ASSESS/VENEER MEASURER TO OBSERVE PATIENT, WITH NOTIFICATION TO THE PHYSICIAN IF SATURATION IS 90% IN THE ABSENCE OF MORE SPECIFIC PARAMETERS FROM THE PHYSICIAN. AGENCY MAY PERFORM A RESUMPTION OF CARE VISIT FOLLOWING ANY HOSPITAL ADMISSION. RN/VENEER MEASURER/COOK BOX FILLER TO MONITOR CO-MORBID CONDITIONS LISTED ON THE PLAN OF CARE AND ANY NEW CONDITIONS THAT PRESENT THEMSELVES DURING THIS EPISODE TO IDENTIFY CHANGES AND INTERVENE TO MINIMIZE COMPLICATIONS.] Future Scheduled Test PAIN MANAG EMENT; RN TO ASSESS AND TEACH, COOK BOX FILLER/VENEER MEASURER TO OBSERVE AND TEACH AND PROVIDE EDUCATION ON PAIN MANAGEMENT TECHNIQUES. [code = PAIN MANAGEMENT; RN TO ASSESS AND TEACH, COOK BOX FILLER/VENEER MEASURER TO OBSERVE AND TEACH AND PROVIDE EDUCATION ON PAIN MANAGEMENT TECHNIQUES.] Future Scheduled Test RISK FOR H OSPITALIZATION; RN TO ASSESS/TEACH, COOK BOX FILLER/VENEER MEASURER TO OBSERVE/TEACH PATIENT/CAREGIVER ON RISK FOR HOSPITALIZATION/EMERGENCY ROOM VISITS, TEACH SIGNS AND SYMPTOMS THAT PUT PATIENT AT RISK, WHEN TO NOTIFY NURSE/PHYSICIAN OF COMPLICATIONS/DECLINE, AND WHEN TO CALL 911. [code = RISK FOR HOSPITALIZATION; RN TO ASSESS/TEACH, COOK BOX FILLER/VENEER MEASURER TO OBSERVE/TEACH PATIENT/CAREGIVER ON RISK FOR HOSPITALIZATION/EMERGENCY ROOM VISITS, TEACH SIGNS AND SYMPTOMS THAT PUT PATIENT AT RISK, WHEN TO NOTIFY NURSE/PHYSICIAN OF COMPLICATIONS/DECLINE, AND WHEN TO CALL 911.] Future Scheduled Test CARDIOVASC ULAR SYSTEM; RN TO ASSESS/TEACH, VENEER MEASURER/COOK BOX FILLER TO OBSERVE/TEACH RELATED TO ALTERED CARDIOVASCULAR STATUS TO MINIMIZE COMPLICATIONS AND REDUCE HOSPITALIZATION. [code = CARDIOVASCULAR SYSTEM; RN TO ASSESS/TEACH, VENEER MEASURER/COOK BOX FILLER TO OBSERVE/TEACH RELATED TO ALTERED CARDIOVASCULAR STATUS TO MINIMIZE COMPLICATIONS AND REDUCE HOSPITALIZATION.] Future Scheduled Test HYPERTENSI ON MANAGEMENT; RN TO ASSESS AND TEACH, VENEER MEASURER/COOK BOX FILLER TO OBSERVE AND TEACH WARNING SIGNS AND SYMPTOMS TO AVOID HOSPITALIZATION. [code = HYPERTENSION MANAGEMENT; RN TO ASSESS AND TEACH, VENEER MEASURER/COOK BOX FILLER TO OBSERVE AND TEACH WARNING SIGNS AND SYMPTOMS TO AVOID HOSPITALIZATION.] Future Scheduled Test ARRHYTHMIA MANAGEMENT; RN TO ASSESS AND TEACH, VENEER MEASURER/COOK BOX FILLER TO OBSERVE AND TEACH WARNING SIGNS AND SYMPTOMS TO AVOID HOSPITALIZATION. [code = ARRHYTHMIA MANAGEMENT; RN TO ASSESS AND TEACH, VENEER MEASURER/COOK BOX FILLER TO OBSERVE AND TEACH WARNING SIGNS AND SYMPTOMS TO AVOID HOSPITALIZATION. ] Future Scheduled Test MEDICATION MANAGEMENT; RN/VENEER MEASURER/COOK BOX FILLER TO REVIEW MEDICATIONS FOR INTERACTIONS, EFFECTIVENESS OF DRUG THERAPY, AND SIGNS/SYMPTOMS OF ADVERSE REACTIONS. MAY INSTRUCT AND REINFORCE MEDICATION TEACHING RELATED TO THE USE OF MEDICATIONS, DOSAGE, FREQUENCY, PURPOSE, SIDE EFFECTS, AND TO REPORT COMPLICATIONS. [code = MEDICATION MANAGEMENT; RN/VENEER MEASURER/COOK BOX FILLER TO REVIEW MEDICATIONS FOR INTERACTIONS, EFFECTIVENESS OF DRUG THERAPY, AND SIGNS/SYMPTOMS OF ADVERSE REACTIONS. MAY INSTRUCT AND REINFORCE MEDICATION TEACHING RELATED TO THE USE OF MEDICATIONS, DOSAGE, FREQUENCY, PURPOSE, SIDE EFFECTS, AND TO REPORT COMPLICATIONS.] Future Scheduled Test AGENCY MAY PERFORM A RESUMPTION OF CARE VISIT FOLLOWING ANY HOSPITAL ADMISSION. OT TO EVALUATE, OBSERVE / ASSESS, AND MONITOR, LIDA TO OBSERVE AND MONITOR, PROVIDE SKILLED THERAPEUTIC INTERVENTION, ACTIVITY, EDUCATION, AND TRAINING TO ADDRESS; ACTIVITIES OF DAILY LIVING (OT/CHIEF DIVERSITY OFFICER) CHAIR TRANSFERS (OT/LIDA) BATH/SHOWER TRANSFER (OT/CHIEF DIVERSITY OFFICER) HOME ACTIVITY / EXERCISE PROGRAM (OT/LIDA) POSTURAL CONTROL/BALANCE (OT/LIDA) THERAPEUTIC EXERCISE (OT/LIDA) OT/CHIEF DIVERSITY OFFICER TO MONITOR AND EDUCATE ON OXYGEN SATURATION DURING ADLS/IADLS, NOTIFY PHYSICIAN AND/OR THE RN CLINICAL UPPER EXTREMITY SURGEON FOR PHYSICIAN NOTIFICATION AND IF O2 SATS BELOW 90% AFTER 10 MIN OF REST. OT/LIDA MAY EDUCATE ON PAIN MANAGEMENT CLINICALLY INDICATED. OT/CHIEF DIVERSITY OFFICER TO MONITOR FOR SIGNS AND SYMPTOMS OF UTI AND EDUCATE PATIENT/CAREGIVER TO MINIMIZE RISK OF DEVELOPING A UTI. [code = AGENCY MAY PERFORM A RESUMPTION OF CARE VISIT FOLLOWING ANY HOSPITAL ADMISSION. OT TO EVALUATE, OBSERVE / ASSESS, AND MONITOR, CHIEF DIVERSITY OFFICER TO OBSERVE AND MONITOR, PROVIDE SKILLED THERAPEUTIC INTERVENTION, ACTIVITY, EDUCATION, AND TRAINING TO ADDRESS; ACTIVITIES OF DAILY LIVING (OT/CHIEF DIVERSITY OFFICER) CHAIR TRANSFERS (OT/CHIEF DIVERSITY OFFICER) BATH/SHOWER TRANSFER (OT/LIDA) HOME ACTIVITY / EXERCISE PROGRAM (OT/LIDA) POSTURAL CONTROL/BALANCE (OT/CHIEF DIVERSITY OFFICER) THERAPEUTIC EXERCISE (OT/CHIEF DIVERSITY OFFICER) OT/LIDA TO MONITOR AND EDUCATE ON OXYGEN SATURATION DURING ADLS/IADLS, NOTIFY PHYSICIAN AND/OR THE RN CLINICAL UPPER EXTREMITY SURGEON FOR PHYSICIAN NOTIFICATION AND IF O2 SATS BELOW 90% AFTER 10 MIN OF REST. OT/LIDA MAY EDUCATE ON PAIN MANAGEMENT CLINICALLY INDICATED. OT/CHIEF DIVERSITY OFFICER TO MONITOR FOR SIGNS AND SYMPTOMS OF UTI AND EDUCATE PATIENT/CAREGIVER TO MINIMIZE RISK OF DEVELOPING A UTI.] Future Scheduled Test AGENCY MAY PERFORM A RESUMPTION OF CARE VISIT FOLLOWING ANY HOSPITAL ADMISSION. PT TO EVALUATE, OBSERVE / ASSESS, AND MONITOR, SCRATCHER TO OBSERVE AND MONITOR, PROVIDE SKILLED THERAPEUTIC INTERVENTION, ACTIVITY, EDUCATION, AND TRAINING TO ADDRESS PT/SCRATCHER TO PROVIDE GAIT TRAINING FOR IMPROVED MOBILITY AND /OR TO NORMALIZE GAIT PATTERN NEUROMUSCULAR RE-EDUCATION / BALANCE / POSTURAL CONTROL (PT) THERAPEUTIC EXERCISES AND ESTABLISHING A HOME EXERCISE PROGRAM (PT/SCRATCHER) PT/SCRATCHER TO PROVIDE STAIR TRAINING SIT TO/FROM STAND TRANSFERS (PT/SCRATCHER) PT TO ASSESS / SCRATCHER TO MONITOR FOR AND REPORT EARLY SIGNS OF ANTICOAGULANT TOXICITY TO THE PHYSICIAN AND/OR THE RN CLINICAL UPPER EXTREMITY SURGEON FOR PHYSICIAN NOTIFICATION AND TO PROVIDE PATIENT/CAREGIVER EDUCATION ON ANTICOAGULANT THERAPY PT / SCRATCHER TO MONITOR AND EDUCATE ON OXYGEN SATURATION DURING ADLS/IADLS, NOTIFY PHYSICIAN AND/OR THE RN CLINICAL UPPER EXTREMITY SURGEON FOR PHYSICIAN NOTIFICATION AND IF O2 SATS BELOW PHYSICIAN ORDERED PARAMETERS AFTER 10 MIN OF REST PT / SCRATCHER TO MONITOR FOR SIGNS AND SYMPTOMS OF UTI AND EDUCATE PATIENT/CAREGIVER TO MINIMIZE RISK OF DEVELOPING A UTI. PT TO ASSESS / SCRATCHER TO MONITOR CARDIO/RESPIRATORY SYSTEM; AND NOTIFY THE PHYSICIAN AND/OR THE RN CLINICAL UPPER EXTREMITY SURGEON FOR PHYSICIAN NOTIFICATION FOR EARLY SIGNS AND SYMPTOMS OF EXACERBATION OR DETERIORATION. PT/SCRATCHER TO IDENTIFY FALL RISK FACTORS; EDUCATE THE PATIENT/CAREGIVER ON WAYS TO REDUCE FALL RISK FACTORS AND ESTABLISH HOME EXERCISE PROGRAM TO MINIMIZE FALL RISK. MAY TEACH THE PATIENT FLOOR RECOVERY WHEN CLINICALLY APPROPRIATE PT / SCRATCHER MAY EDUCATE ON PAIN MANAGEMENT CLINICALLY INDICATED, INCLUDING NON-PHARMACOLOGICAL PAIN REDUCTION TECHNIQUES [code = AGENCY MAY PERFORM A RESUMPTION OF CARE VISIT FOLLOWING ANY HOSPITAL ADMISSION. PT TO EVALUATE, OBSERVE / ASSESS, AND MONITOR, SCRATCHER TO OBSERVE AND MONITOR, PROVIDE SKILLED THERAPEUTIC INTERVENTION, ACTIVITY, EDUCATION, AND TRAINING TO ADDRESS PT/SCRATCHER TO PROVIDE GAIT TRAINING FOR IMPROVED MOBILITY AND /OR TO NORMALIZE GAIT PATTERN NEUROMUSCULAR RE-EDUCATION / BALANCE / POSTURAL CONTROL (PT) THERAPEUTIC EXERCISES AND ESTABLISHING A HOME EXERCISE PROGRAM (PT/SCRATCHER) PT/SCRATCHER TO PROVIDE STAIR TRAINING SIT TO/FROM STAND TRANSFERS (PT/SCRATCHER) PT TO ASSESS / SCRATCHER TO MONITOR FOR AND REPORT EARLY SIGNS OF ANTICOAGULANT TOXICITY TO THE PHYSICIAN AND/OR THE RN CLINICAL UPPER EXTREMITY SURGEON FOR PHYSICIAN NOTIFICATION AND TO PROVIDE PATIENT/CAREGIVER EDUCATION ON ANTICOAGULANT THERAPY PT / SCRATCHER TO MONITOR AND EDUCATE ON OXYGEN SATURATION DURING ADLS/IADLS, NOTIFY PHYSICIAN AND/OR THE RN CLINICAL UPPER EXTREMITY SURGEON FOR PHYSICIAN NOTIFICATION AND IF O2 SATS BELOW PHYSICIAN ORDERED PARAMETERS AFTER 10 MIN OF REST PT / SCRATCHER TO MONITOR FOR SIGNS AND SYMPTOMS OF UTI AND EDUCATE PATIENT/CAREGIVER TO MINIMIZE RISK OF DEVELOPING A UTI. PT TO ASSESS / SCRATCHER TO MONITOR CARDIO/RESPIRATORY SYSTEM; AND NOTIFY THE PHYSICIAN AND/OR THE RN CLINICAL UPPER EXTREMITY SURGEON FOR PHYSICIAN NOTIFICATION FOR EARLY SIGNS AND SYMPTOMS OF EXACERBATION OR DETERIORATION. PT/SCRATCHER TO IDENTIFY FALL RISK FACTORS; EDUCATE THE PATIENT/CAREGIVER ON WAYS TO REDUCE FALL RISK FACTORS AND ESTABLISH HOME EXERCISE PROGRAM TO MINIMIZE FALL RISK. MAY TEACH THE PATIENT FLOOR RECOVERY WHEN CLINICALLY APPROPRIATE PT / SCRATCHER MAY EDUCATE ON PAIN MANAGEMENT CLINICALLY INDICATED, INCLUDING NON-PHARMACOLOGICAL PAIN REDUCTION TECHNIQUES ] Goal 2024-10-14 Patient Goal - TO GET STRONG ER Goal Patient Goal - TO GET STRONG ER Goal Provider Goal - PATIENT/CAREGIVER WILL VERBALIZE/DEMONSTRATE UNDERSTANDING OF FALL RISK FACTORS AND IMPLEMENT STRATEGIES TO MINIMIZE FALL RISK. PATIENT/CAREGIVER WILL VERBALIZE/DEMONSTRATE AN ABILITY TO ADHERE TO FALL REDUCTION SELF-MANAGEMENT AND LIFE-STYLE CHANGES BY 11/29/24 Goal Provider Goal - PATIENT / CAREGIVER WILL VERBALIZE/DEMONSTRATE UNDERSTANDING OF MEASURES TO MANAGE ALTERED GENITOURINARY STATUS BY END OF EPISODE. Goal Provider Goal - PATIENT/CAREGIVER WILL VERBALIZE/DEMONSTRATE UNDERSTANDING OF CARE AND MANAGEMENT OF URINARY TRACT INFECTION BY 11/29/24 Goal Provider Goal - A PLAN OF CARE WILL BE ESTABLISHED THAT MEETS THE PATIENTS NEEDS. PATIENT WILL DEMONSTRATE OXYGEN SATURATION WITHIN NORMAL LIMITS OR PATIENTS OPTIMAL LEVEL ESTABLISHED BY THE PHYSICIAN THROUGHOUT CARE. CHANGES TO CO-MORBID CONDITIONS AND ANY NEW CONDITIONS WILL BE IDENTIFIED AND REPORTED TO THE PHYSICIAN. Goal Provider Goal - PATIENT / CAREGIVER WILL VERBALIZE / DEMONSTRATE UNDERSTANDING OF PAIN CONTROL MEASURES BY 11/29/24 Goal Provider Goal - PATIENT/CAREGIVER WILL VERBALIZE UNDERSTANDING OF SIGNS AND SYMPTOMS THAT PUT THE PATIENT AT RISK FOR HOSPITALIZATION /EMERGENCY ROOM VISITS, WHEN TO NOTIFY NURSE/PHYSICIAN OF COMPLICATIONS/DECLINE AND WHEN TO CALL 911. Goal Provider Goal - PATIENT / CAREGIVER WILL VERBALIZE/DEMONSTRATE UNDERSTANDING OF MEASURES TO MANAGE ALTERED CARDIOVASCULAR STATUS BY 11/29/24 Goal Provider Goal - PATIENT / CAREGIVER WILL VERBALIZE/DEMONSTRATE AN ABILITY TO ADHERE TO SELF-MANAGEMENT OF HTN TO MINIMIZE COMPLICATIONS AND AVOID HOSPITALIZATION BY END OF EPISODE. Goal Provider Goal - PATIENT / CAREGIVER WILL VERBALIZE/DEMONSTRATE AN ABILITY TO ADHERE TO SELF-MANAGEMENT OF HEART ARRHYTHMIA TO MINIMIZE COMPLICATIONS AND AVOID HOSPITALIZATION BY END OF EPISODE. Goal Provider Goal - PATIENT/CAREGIVER TO VERBALIZE, AND CONSISTENTLY DEMONSTRATE EFFECTIVE, SAFE MANAGEMENT OF MEDICATION INCLUDING KNOWLEDGE OF EFFECTIVENESS, POTENTIAL SIDE EFFECTS AND DRUG REACTIONS AND WHEN TO CONTACT THE APPROPRIATE CARE PROVIDER. PATIENT/CAREGIVER WILL BE ABLE TO VERBALIZE UNDERSTANDING OF MEDICATION REGIMEN AND ACCURATELY TAKE MEDICATIONS PRESCRIBED WITHOUT ADVERSE EFFECTS BY 11/29/24 Goal Provider Goal - OT LTG: PATIENT WILL DEMONSTRATE IMPROVEMENT IN MODIFIED NICHOLE INDEX SCORE FROM 80 TO 85 INDICATING DECREASED DEPENDENCY ON CAREGIVER ASSISTANCE WITH ACTIVITIES OF DAILY LIVING WITHIN 8 WEEKS OT LTG: PATIENT WILL DEMONSTRATE IMPROVED ABILITY TO PERFORM CHAIR TRANSFERS TO REDUCE THE RISK OF SKIN BREAKDOWN AND IMPROVE PARTICIPATION IN ADLS FROM MIN A TO IND WITHIN 8 WEEKS. OT LTG: PATIENT WILL DEMONSTRATE IMPROVED ABILITY AND SAFETY TO PERFORM BATH/SHOWER TRANSFER FROM MOD A TO CGA WITHIN 8 WEEKS. OT LTG: PATIENT/CAREGIVER WILL BE ABLE TO DEMONSTRATE BUE STRENGTH EXERCISES / ACTIVITIES IN ORDER TO INCREASE BUE STRENGTH FROM UNABLE TO INDEPENDENT WITHIN 8 WEEKS OT LTG: PATIENT WILL DEMONSTRATE IMPROVED POSTURAL CONTROL AND DECREASED FALL RISK EVIDENCED BY AN IMPROVEMENT IN FUNCTIONAL REACH SCORE FROM 2 INCHES TO 5 INCH WITHIN 8 WEEKS IN ORDER TO DECREASE RISK OF FALLING OT LTG: PATIENT WILL DEMONSTRATE IMPROVED B SHOULDER MUSCLE STRENGTH EVIDENCED BY AN IMPROVEMENT IN MMT/FUNCTIONAL STRENGTH FROM 3+/5 TO 4-/5 WITHIN 8 WEEKS IN ORDER TO IMPROVE PERFORMANCE WITH FUNCTIONAL TRANSFERS OT LTG: PATIENT WILL MAINTAIN OXYGEN SATURATION WITHIN PHYSICIAN ORDERED PARAMETERS THROUGHOUT THE EPISODE OF CARE. OT LTG: PATIENT WILL DEMONSTRATE UNDERSTANDING OF PAIN MANAGEMENT TECHNIQUES NEEDED DURING EPISODE OF CARE OT GOAL: PATIENT WILL NOT EXHIBIT SIGNS AND SYMPTOMS OF UTI THROUGHOUT THE EPISODE OF CARE. Goal Provider Goal - PT LTG: PATIENT WILL DEMONSTRATE REDUCED GAIT DEVIATIONS TO REDUCE THE RISK FOR FALLING AND MINIMIZE STRAIN ON KNEES/HIPS AND BACK EVIDENCED BY IMPROVED POSTURAL POSITIONING, STEP LENGTH AND FOOT PLACEMENT USING ROLLATOR TO WALK HOUSEHOLD DISTANCES INDEPENDENTLY IN ORDER TO PERFORM ADL'S AND IADL'S. PT LTG: PATIENT WILL DEMONSTRATE REDUCED FALL RISK EVIDENCED BY TUG TEST (CUT SCORE >11 SECONDS INDICATES INCREASED FALL RISK) IMPROVING FROM 30 SECONDS TO 20 SECONDS WITHIN 9 WEEKS PT LTG: PATIENT WILL DEMONSTRATE IMPROVED FUNCTIONAL STRENGTH EVIDENCED BY FIVE TIMES SIT TO STAND TEST (CUT SCORE >12 SECONDS INDICATES AN INCREASED FALL RISK) IMPROVING FROM 39 SECONDS TO 25 SECONDS WITHIN 9 WEEKS PT LTG: PATIENT WILL DEMONSTRATE INCREASED STRENGTH OF B LES FROM 3/5 TO 4/5 WITHIN 9 WEEKS PT LTG: PATIENT WILL DEMONSTRATE IMPROVED ABILITY TO SAFELY NEGOTIATE STAIRS FROM NT TO INDEPENDENT WITH RAILING IN ORDER TO SAFELY ENTER AND EXIT HOME WITHIN 9 WEEKS PT STG: PATIENT WILL DEMONSTRATE IMPROVED ABILITY TO PERFORM SIT TO/FROM STAND TRANSFERS TO REDUCE THE RISK OF SKIN BREAKDOWN AND REDUCE FALL RISK FROM SBA TO INDEPENDENT WITHIN 9 WEEKS PT LTG: PATIENT WILL NOT EXHIBIT SIGNS AND SYMPTOMS OF ANTICOAGULANT TOXICITY THROUGHOUT EPISODE OF CARE. PT LTG: PATIENT WILL MAINTAIN OXYGEN SATURATION WITHIN PHYSICIAN ORDERED PARAMETERS THROUGHOUT EPISODE OF CARE. PT GOAL: PATIENT WILL NOT EXHIBIT SIGNS AND SYMPTOMS OF UTI. PT LTG: PATIENT WILL NOT EXPERIENCE CARDIAC OR RESPIRATORY COMPLICATIONS THROUGHOUT THE EPISODE OF CARE. PT LTG: PATIENT/CAREGIVER WILL DEMONSTRATE ADHERENCE TO FALL REDUCTION SELF-MANAGEMENT AND REDUCING FALL RISK FACTORS TO MINIMIZE FALL RISK BY END OF EPISODE. PT LTG: PATIENT WILL BE INDEPENDENT WITH IMPLEMENTATION OF HEP WITHIN 4 WEEKS. PT GOAL: PATIENT WILL DEMONSTRATE UNDERSTANDING OF PAIN MANAGEMENT TECHNIQUES EVIDENCED BY REDUCED PAIN Encounters Start Date/Time End Date/Time Encounter Type Admission Type Attending [facility] Care Department Encounter ID Discharge Date Discharge Status Discharge Condition Discharge Reason Percent Goals Met 2024-10-01 00:00:00 2024-11-29 00:00:00 Outpatient [facility] [id number] 14.29
== END 2024-10-31 14:47 | disposition home or self-care (01) ==
LOC: HO.LNP 14:46
PROVIDERS: Visit Provider Internal Medicine
DX: N39.0 Urinary tract infection, site not specified (principal); E78.00 Pure hypercholesterolemia, unspecified; N19 Unspecified kidney failure
CPT/HCPCS: 80061; 80076; 81001; 82565; 84520; 87086

== ENCOUNTER 2024-11-22 16:38 | Outpatient (REF) | payer MEDICARE, SELFPAY ==
--- OUTSIDE RECORDS SUMMARY | 2024-11-22 16:58 | XMS_ITS | Encounter Summary ---
Author Organization [facility] Address [address] [place] [address] Care Team Providers Care Weight Tester Name Role Phone Luanne Card MD Primary Care Provider + Encounter Details Date Type Department Care Team (Late st Contact Info) Description 09/19/2024 Lab Requisition [facility] - Main Lab [address] [facility] [place] [address] Luanne Card MD [address] [address] Acute kidney failure, unspecified (CMS/HCC V24); Chronic kidney disease, stage 3 unspecified (CMS/HCC V24, CMS/HCC V28) Social History Tobacco Use Types Packs/Day Years [...] Procedure Name Priority Date/Time Associated Diagnosis Comments COMPLETE BLOOD COUNT Routine 09/19/2024 8:55 AM EDT Acute kidney failure, unspecified (CMS/HCC V24) Chronic kidney disease, stage 3 unspecified (CMS/HCC V24, CMS/HCC V28) BASIC METABOLIC PANEL Routine 09/19/2024 8:55 AM EDT Acute kidney failure, unspecified (CMS/HCC V24) Chronic kidney disease, stage 3 unspecified (CMS/HCC V24, CMS/HCC V28) documented in this encounter Results * (ABNORMAL) Basic metabolic panel (09/19/2024 8:55 AM EDT) Sodium 141 133 - 145 mmol/L LAB CHEMISTRY METHOD 09/19/2024 1:37 PM [facility] Potassium 3.0(L) 3.5 - 5.5 mmol/L LAB CHEMISTRY METHOD 09/19/2024 1:37 PM [facility] Chloride 98 96 - 110 mmol/L LAB CHEMISTRY METHOD 09/19/2024 1:37 PM [facility] CO2 34(H) 21 - 32 mmol/L LAB CHEMISTRY METHOD 09/19/2024 1:37 PM [facility] Anion Gap 9 3 - 11 LAB CHEMISTRY METHOD 09/19/2024 1:37 PM [facility] Glucose 95 70 - 100 mg/dL LAB CHEMISTRY METHOD 09/19/2024 1:37 PM [facility] BUN 13 5 - 25 mg/dL LAB CHEMISTRY METHOD 09/19/2024 1:37 PM [facility] Creatinine 0.97 0.50 - 1.10 mg/dL LAB CHEMISTRY METHOD 09/19/2024 1:37 PM [facility] LAB eGFR 61 >=60 mL/min/1. 73m2 LAB CHEMISTRY METHOD 09/19/2024 1:37 PM [facility] Comment:Calculation based on the Chronic Kidney Disease Epidemiology Collaboration (CKD-EPI) equation refit without adjustment for race. BUN/Creatinine Ratio 13.4 LAB CHEMISTRY METHOD 09/19/2024 1:37 PM [facility] Calcium 8.9 8.5 - 10.5 mg/dL LAB CHEMISTRY METHOD 09/19/2024 1:37 PM [facility] Blood Venous blood specimen / Unknown Venipuncture / Unknown 09/19/2024 8:55 AM EDT 09/19/2024 11:23 AM EDT us Erinn Laba Elder MD LAB BLOOD ORDERABLES Fin al Result [facility] [address] [place] [address], * (ABNORMAL) Complete blood count (09/19/2024 8:55 AM EDT) WBC 7.9 4.8 - 10.8 K/mcL LAB HEMETOLOGY METHOD 09/19/2024 1:07 PM EDT [facility] RBC 3.80 3.80 - 4.80 M/mcL LAB [facility] Hemoglobin 10.3(L) 11.5 - 16.0 g/dL LAB HEMETOLOGY METHOD 09/19/2024 1:07 PM [facility] Hematocrit 34.8(L) 35.0 - 47.0 % LAB [facility]EMETOLOGY [facility] MCV 90.6 79.0 - 98.0 FL LAB HEMETOLOGY METHOD 09/19/2024 1:07 PM [facility] MCH 26.8(L) 27.0 - 32.0 pcg LAB HEMETOLOGY METHOD 09/19/2024 1:07 PM [facility] MCHC 29.6(L) 32.0 - 37.0 g/dL LAB HEMETOLOGY METHOD 09/19/2024 1:07 PM [facility] RDW 15.7(H) 11.0 - 15.0 % LAB [facility]EMETOLOGY [facility]24 [facility] Platelets 214 130 - 400 K/mcL LAB HEMETOLOGY METHOD 09/19[facility]2024 [facility] MPV 10.7 7.0 - 11.0 FL LAB HEMETOLOGY METHOD 09/19/2024 1:07 PM EDT [facility] NRBC 0.0 <1.0 % LAB HEMETOLOGY METHOD 09/19/2024 1:07 PM EDT [facility] NRBC Absolute 0.00 <0.10 K/mcL LAB HEMETOLOGY METHOD 09/19/2024 1:07 PM EDT [facility] Blood Venous blood specimen / Unknown Venipuncture / Unknown 09/19/2024 8:55 AM EDT 09/19/2024 11:23 AM EDT us Luanne Card MD LAB BLOOD ORDERABLES Fin al Result [facility] [address] [place] [address], documented in this encounter Visit Diagnoses Diagnosis Acute kidney failure, unspecified (CMS/HCC V24) Acute kidney failure, unspecified Chronic kidney disease, stage 3 unspecified (CMS/HCC V24, CMS/HCC V28) documented in this encounter Additional Health Concerns Infection Onset Date Last Indicated Resolved Time C. difficile Rule-Out 09/23/2024 09/23/20242024 11:33 AM EDT documented as of this encounter Care Teams Weight Tester Relationship Specialty Start Date End Date Luanne Card MD [address] [place] [id number] PCP - General Family Medicine 09/14/24 documented as of this encounter
--- OUTSIDE RECORDS SUMMARY | 2024-11-22 16:58 | XMS_ITS | Encounter Summary ---
Author Organization [facility] Address [address] [place] [address] Care Team Providers Care Hot Plate Press Operator Name Role Phone Luanne Card MD Primary Care Provider + Encounter Details Date Type Department Care Team (Late st Contact Info) Description 09/21/2024 Lab Requisition [facility] - Main Lab [address] [place] [address] Luanne Card MD [address] [address] Chronic kidney disease, stage 3 [...] LAB CHEMISTRY METHOD 09/21/2024 7:01 AM EDT [facility] Potassium 3.8 3.5 - 5.5 mmol/L LAB CHEMISTRY METHOD 09/21/2024 7:01 AM [facility] Chloride 98 96 - 110 mmol/L LAB CHEMISTRY METHOD 09/21/2024 7:01 AM [facility] CO2 35(H) 21 - 32 mmol/L LAB CHEMISTRY METHOD 09/21/2024 7:01 AM [facility] Anion Gap 3 3 - 11 LAB CHEMISTRY METHOD 09/21/2024 7:01 AM [facility] Glucose 73 70 - 100 mg/dL LAB CHEMISTRY METHOD 09/21/2024 7:01 AM [facility] BUN 18 5 - 25 mg/dL LAB CHEMISTRY METHOD 09/21/2024 7:01 AM [facility] Creatinine 1.05 0.50 - 1.10 mg/dL LAB CHEMISTRY METHOD 09/21/2024 7:01 AM [facility] LAB eGFR 55(L) >=60 mL/min/1. 73m2 LAB CHEMISTRY METHOD 09/21/2024 7:01 AM [facility] LAB Comment:Calculation based on the Chronic Kidney Disease Epidemiology Collaboration (CKD-EPI) equation refit without adjustment for race. BUN/Creatinine Ratio 17.1 LAB CHEMISTRY METHOD 09/21/2024 7:01 AM [facility] Calcium 9.4 8.5 - 10.5 mg/dL LAB CHEMISTRY METHOD 09/21/2024 7:01 AM [facility] Blood Venous blood specimen / Unknown Venipuncture / Unknown 09/21/2024 5:18 AM EDT 09/21/2024 6:30 AM EDT us Luanne Card MD LAB BLOOD ORDERABLES Fin al Result [facility] [address] [place] [address], documented in this encounter Visit Diagnoses Diagnosis Chronic kidney disease, stage 3 unspecified (CMS/[facility] V24, CMS/[facility] V28) Hypo-osmolality and hyponatremia documented in this encounter Additional Health Concerns Infection Onset Date Last Indicated Resolved Time C. difficile Rule-Out 09/23/2024 09/23/20242024 11:33 AM EDT documented as of this encounter Care Teams Hot Plate Press Operator Relationship Specialty Start Date End Date Luanne Card MD [address] [place] [address] PCP - General Family Medicine 09/14/24 documented as of this encounter
--- OUTSIDE RECORDS SUMMARY | 2024-11-22 16:58 | XMS_ITS | Encounter Summary ---
Author Organization [facility] Address [id number] [place] [id number] Care Team Providers Care Travel Services Professional Name Role Phone Luanne Card MD Primary Care Provider + Encounter Details Date Type Department Care Team (Late st Contact Info) Description 09/14/[address] [facility] - Main Lab [address] [facility] [place] [address] Luanne Card MD [address] [address] Hypovolemic shock (CMS/HCC V24, CMS/HCC V28); Acute kidney failure, unspecified (CMS/HCC V24); Chronic kidney disease, stage 3 unspecified (CMS/HCC V24, CMS/HCC V28); Hypokalemia; Hypo-osmolality and hyponatremia; Hyperlipidemia, unspecified; Hypothyroidism, unspecified; Gastro-esophageal reflux disease without esophagitis; Vitamin D deficiency, unspecified; Unspecified osteoarthritis, unspecified site Social History Tobacco Use Types Packs/Day Years [...] Procedure Name Priority Date/Time Associated Diagnosis Comments VITAMIN D 25 HYDROXY Routine 09/14/2024 5:27 AM EDT Hypovolemic shock (CMS/HCC V24, CMS/HCC V28) Acute kidney failure, unspecified (CMS/HCC V24) Chronic kidney disease, stage 3 unspecified (CMS/HCC V24, CMS/HCC V28) Hypokalemia Hypo-osmolality and hyponatremia Hyperlipidemia, unspecified Hypothyroidism, unspecified Gastro-esophageal reflux disease without esophagitis Vitamin D deficiency, unspecified Unspecified osteoarthritis, unspecified site COMPLETE BLOOD COUNT Routine 09/14/2024 5:27 AM EDT Hypovolemic shock ([facility] V24, [facility] V28) Acute kidney failure, unspecified ([facility] V24) Chronic kidney disease, stage 3 unspecified ([facility]/HCC V24, CMS/HCC V28) Hypokalemia Hypo-osmolality and hyponatremia Hyperlipidemia, unspecified Hypothyroidism, unspecified Gastro-esophageal reflux disease without esophagitis Vitamin D deficiency, unspecified Unspecified osteoarthritis, unspecified site THYROID STIMULATING HORMONE Routine 09/14/2024 5:27 AM EDT Hypovolemic shock ([facility] V24, [facility] V28) Acute kidney failure, unspecified ([facility] V24) Chronic kidney disease, stage 3 unspecified ([facility] V24, [facility] V28) Hypokalemia Hypo-osmolality and hyponatremia Hyperlipidemia, unspecified Hypothyroidism, unspecified Gastro-esophageal reflux disease without esophagitis Vitamin D deficiency, unspecified Unspecified osteoarthritis, unspecified site MAGNESIUM Routine 09/14/2024 5:27 AM EDT Hypovolemic shock ([facility] V24, [facility] V28) Acute kidney failure, unspecified ([facility] V24) Chronic kidney disease, stage 3 unspecified ([facility] V24, CMS/HCC V28) Hypokalemia Hypo-osmolality and hyponatremia Hyperlipidemia, unspecified Hypothyroidism, unspecified Gastro-esophageal reflux disease without esophagitis Vitamin D deficiency, unspecified Unspecified osteoarthritis, unspecified site FOLATE Routine 09/14/2024 5:27 AM EDT Hypovolemic shock ([facility] V24, [facility] V28) Acute kidney failure, unspecified ([facility] V24) Chronic kidney disease, stage 3 unspecified ([facility] V24, CMS/HCC V28) Hypokalemia Hypo-osmolality and hyponatremia Hyperlipidemia, unspecified Hypothyroidism, unspecified Gastro-esophageal reflux disease without esophagitis Vitamin D deficiency, unspecified Unspecified osteoarthritis, unspecified site VITAMIN B12 Routine 09/14/2024 5:27 AM EDT Hypovolemic shock ([facility] V24, [facility] V28) Acute kidney failure, unspecified ([facility] V24) Chronic kidney disease, stage 3 unspecified ([facility] V24, [facility] V28) Hypokalemia Hypo-osmolality and hyponatremia Hyperlipidemia, unspecified Hypothyroidism, unspecified Gastro-esophageal reflux disease without esophagitis Vitamin D deficiency, unspecified Unspecified osteoarthritis, unspecified site COMPREHENSIVE METABOLIC PANEL Routine 09/14/2024 5:27 AM EDT Hypovolemic shock ([facility] V24, [facility] V28) Acute kidney failure, unspecified ([facility] V24) Chronic kidney disease, stage 3 unspecified ([facility] V24, [facility] V28) Hypokalemia Hypo-osmolality and hyponatremia Hyperlipidemia, unspecified Hypothyroidism, unspecified Gastro-esophageal reflux disease without esophagitis Vitamin D deficiency, unspecified Unspecified osteoarthritis, unspecified site documented in this encounter Results * Magnesium (09/14/2024 5:27 AM EDT) Magnesium 1.9 1.9 - 2.6 mg/dL LAB CHEMISTRY METHOD 09/17/2024 12:04 PM EDT [facility] Blood Venous blood specimen / Unknown Venipuncture / Unknown 09/14/2024 5:27 AM EDT 09/14/2024 8:42 AM EDT us Luanne Card MD LAB BLOOD ORDERABLES Fin al Result [facility] [address] [place] [address], * (ABNORMAL) Thyroid stimulating hormone (09/14/2024 5:27 AM EDT) TSH 7.12(H) 0.40 - 4.00 mcIU/mL LAB CHEMISTRY METHOD 09/14/2024 12:42 PM EDT [facility] Blood Venous blood specimen / Unknown Venipuncture / Unknown 09/14/2024 5:27 AM EDT 09/14/2024 8:42 AM EDT Luanne Card MD LAB BLOOD ORDERABLES Fin al Result Performing Organization Address City/[facility]/ZIP Co de Phone Number [facility] [address] [place] [address], [place] [phone] * Folate (09/14/2024 5:27 AM EDT) Folate 6.0 2.8 - 17.0 ng/ml LAB CHEMISTRY METHOD 09/14/2024 10:32 AM EDT [facility] Blood Venous blood specimen / Unknown Venipuncture / Unknown 09/14/2024 5:27 AM EDT 09/14/2024 8:42 AM EDT Luanne Card MD LAB BLOOD ORDERABLES Fin al Result Performing Organization Address [facility]/ZIP Co de Phone Number [facility] [address] [place] [address], [place] [phone] * Vitamin B12 (09/14/2024 5:27 AM EDT) Vitamin B-12 412 250 - 900 pcg/mL LAB CHEMISTRY METHOD 09/14/2024 12:08 PM EDT [facility] Blood Venous blood specimen / Unknown Venipuncture / Unknown 09/14/2024 5:27 AM EDT 09/14/2024 8:42 AM EDT Luanne Card MD LAB BLOOD ORDERABLES Fin al Result Performing Organization Address City/[facility]/ZIP Co de Phone Number [facility] [address] [place] [address], [place] [phone] * Vitamin D 25 hydroxy (09/14/2024 5:27 AM EDT) Pathologist [facility] Vit D, 25-Hydroxy 53.6 30.0 - 80.0 ng/mL LAB CHEMISTRY METHOD 09/14/2024 12:42 PM T [facility] Blood Venous blood specimen / Unknown Venipuncture / Unknown 09/14/2024 5:27 AM EDT 09/14/2024 8:42 AM EDT us Luanne Card MD LAB BLOOD ORDERABLES Fin al Result [facility] [address] [place] [address], * (ABNORMAL) Comprehensive metabolic panel (09/14/2024 5:27 AM EDT) [facility] Sodium 137 133 - 145 mmol/L LAB CHEMISTRY METHOD 09/14/2024 10:32 AM [facility] Potassium 4.0 3.5 - 5.5 mmol/L LAB CHEMISTRY METHOD 09/14/2024 10:32 AM [facility] Chloride 94(L) 96 - 110 mmol/L LAB CHEMISTRY METHOD 09/14/2024 10:32 AM [facility] CO2 29 21 - 32 mmol/L LAB CHEMISTRY METHOD 09/14/2024 10:32 AM [facility] Anion Gap 14(H) 3 - 11 LAB CHEMISTRY METHOD 09/14/2024 10:32 AM [facility] Glucose 74 70 - 100 mg/dL LAB CHEMISTRY METHOD 09/14/2024 10:32 AM [facility] BUN 26(H) 5 - 25 mg/dL LAB CHEMISTRY METHOD 09/14/2024 10:32 AM [facility] Creatinine 1.42(H) 0.50 - 1.10 mg/dL LAB CHEMISTRY METHOD 09/14/2024 10:32 AM [facility] eGFR 38(L) >=60 mL/min/1. 73m2 LAB CHEMISTRY METHOD 09/14/2024 10:32 AM [facility] Comment:Calculation based on the Chronic Kidney Disease Epidemiology Collaboration (CKD-EPI) equation refit without adjustment for race. BUN/Creatinine Ratio 18.3 LAB CHEMISTRY METHOD 09/14/2024 10:32 AM [facility] Calcium 10.2 8.5 - 10.5 mg/dL LAB CHEMISTRY METHOD 09/14/2024 10:32 AM [facility] AST (SGOT) 46(H) 10 - 42 unit/L LAB CHEMISTRY METHOD 09/14/2024 10:32 AM [facility] ALT (SGPT) 32 10 - 60 unit/L LAB CHEMISTRY METHOD 09/14/2024 10:32 AM [facility] Alkaline Phosphatase 157(H) 42 - 121 unit/L LAB CHEMISTRY METHOD 09/14/2024 10:32 AM [facility] Total Protein 7.3 6.0 - 8.0 g/dL LAB CHEMISTRY METHOD 09/14/2024 10:32 AM [facility] Albumin 3.7 3.2 - 5.0 g/dL LAB CHEMISTRY METHOD 09/14/2024 10:32 AM [facility] Total Bilirubin 0.6 0.0 - 1.4 mg/dL LAB CHEMISTRY METHOD 09/14/2024 10:32 AM [facility] Blood Venous blood specimen / Unknown Venipuncture / Unknown 09/14/2024 5:27 AM EDT 09/14/2024 8:42 AM EDT us Luanne Card MD LAB BLOOD ORDERABLES Fin al Result [facility] [address] [place] [address], [place] [phone] * (ABNORMAL) Complete blood count (09/14/2024 5:27 AM EDT) [facility] Signature WBC 8.4 4.8 - 10.8 K/mcL LAB HEMETOLOGY METHOD 09/14/2024 9:39 AM [facility] RBC 3.90 3.80 - 4.80 M/mcL LAB HEMETOLOGY METHOD 09/14/2024 9:39 [facility] Hemoglobin 10.2(L) 11.5 - 16.0 g/dL LAB HEMETOLOGY METHOD 09/14/2024 9:39 AM [facility] Hematocrit 34.4(L) 35.0 - 47.0 % LAB HEMETOLOGY METHOD 09/14/2024 9:39 AM [facility] MCV 89.4 79.0 - 98.0 FL LAB HEMETOLOGY METHOD 09/14/2024 9:39 AM [facility] MCH 26.5(L) 27.0 - 32.0 pcg LAB HEMETOLOGY METHOD 09/14/2024 9:39 AM [facility] MCHC 29.7(L) 32.0 - 37.0 g/dL LAB HEMETOLOGY METHOD 09/14/2024 9:39 AM [facility] RDW 15.8(H) 11.0 - 15.0 % LAB HEMETOLOGY METHOD 09/14/2024 9:39 AM [facility] Platelets 216 130 - 400 K/mcL LAB HEMETOLOGY METHOD 09/14/2024 9:39 AM [facility] MPV 10.6 7.0 - 11.0 FL LAB HEMETOLOGY METHOD 09/14/2024 9:39 AM [facility] NRBC 0.0 <1.0 % LAB HEMETOLOGY METHOD 09/14/2024 9:39 AM EDT [facility] NRBC Absolute 0.00 <0.10 K/mcL LAB HEMETOLOGY METHOD 09/14/2024 9:39 AM EDT [facility] Blood Venous blood specimen / Unknown Venipuncture / Unknown 09/14/2024 5:27 AM EDT 09/14/2024 8:42 AM EDT us Luanne Card MD LAB BLOOD ORDERABLES Fin al Result [facility] [address] [place] [address], documented in this encounter Visit Diagnoses Diagnosis Hypovolemic shock (CMS/HCC V24, CMS/HCC V28) Other shock without mention of trauma Acute kidney failure, unspecified (CMS/HCC V24) Acute kidney failure, unspecified Chronic kidney disease, stage 3 unspecified (CMS/HCC V24, CMS/HCC V28) Hypokalemia Hypopotassemia Hypo-osmolality and hyponatremia Hyperlipidemia, unspecified Hypothyroidism, unspecified Gastro-esophageal reflux disease without esophagitis Vitamin D deficiency, unspecified Unspecified osteoarthritis, unspecified site documented in this encounter Additional Health Concerns Infection Onset Date Last Indicated Resolved Time C. difficile Rule-Out 09/23/2024 09/23/20242024 11:33 AM EDT documented as of this encounter Care Teams Travel Services Professional Relationship Specialty Start Date End Date Luanne Card MD [address] [place] [phone] PCP - General Family Medicine 09/14/24 documented as of this encounter
--- OUTSIDE RECORDS SUMMARY | 2024-11-22 16:58 | XMS_ITS | Clinical Summary ---
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 Name Role Phone Luanne Card MD Primary Care Provider + Encounters Date Type Department Care Team Description 10/03/2024 Lab Requisition [facility] [address] [place] [phone] Luanne Card MD Hypovolemic shock (CMS/HCC V24, CMS/HCC V28); Acute kidney failure, unspecified (CMS/HCC V24); Chronic kidney disease, stage 3 unspecified (CMS/HCC V24, CMS/HCC V28); Hypokalemia; Gastro-esophageal reflux disease without esophagitis; Hypothyroidism, unspecified; Hyperlipidemia, unspecified 09/26/2024 Lab Requisition [facility] [address] [place] [phone] Luanne Card MD Hypovolemic shock (CMS/HCC V24, CMS/HCC V28); Acute kidney failure, unspecified (CMS/HCC V24); Chronic kidney disease, stage 3 unspecified (CMS/HCC V24, CMS/HCC V28); Hypokalemia; Gastro-esophageal reflux disease without esophagitis; Hypothyroidism, unspecified; Hyperlipidemia, unspecified 09/26/2024 Lab Requisition [facility] [address] [place] [phone] Luanne Card MD Chronic kidney disease, stage 3 unspecified (CMS/HCC V24, CMS/HCC V28); Acute kidney failure, unspecified (CMS/HCC V24) 09/23/2024 Lab Requisition [facility] [address] [place] [phone] Luanne Card MD Enterocolitis due to Clostridium difficile, not specified as recurrent 09/21/2024 Lab Requisition [facility] [address] [place] [phone] Luanen Card MD Chronic kidney disease, stage 3 unspecified ([facility] V24, [facility] V28); Hypo-osmolality and hyponatremia 09/19/2024 Lab Requisition [facility] [address] [place] [phone] Luanne Card MD Hypovolemic shock ([facility] V24, [facility] V28); Acute kidney failure, unspecified ([facility] V24); Chronic kidney disease, stage 3 unspecified ([facility] V24, [facility] V28); Hypokalemia; Gastro-esophageal reflux disease without esophagitis; Hypothyroidism, unspecified; Hyperkalemia 09/19/2024 Lab Requisition [facility] [address] [place] [phone] Luanne Card MD Acute kidney failure, unspecified ([facility] V24); Chronic kidney disease, stage 3 unspecified ([facility] V24, [facility] V28) 09/14/2024 Lab Requisition [facility] [address] [place] [phone] Luanne Card MD Hypovolemic shock ([facility] V24, [facility] V28); Acute kidney failure, unspecified ([facility] V24); Chronic kidney disease, stage 3 unspecified ([facility] V24, [facility] V28); Hypokalemia; Hypo-osmolality and hyponatremia; Hyperlipidemia, unspecified; Hypothyroidism, unspecified; Gastro-esophageal reflux disease without esophagitis; Vitamin D deficiency, unspecified; Unspecified osteoarthritis, unspecified site from Last 3 Months Social History Tobacco Use Types Packs/Day Years Used Date Smoking Tobacco: Never Assessed Comments Unknown Sex and Gender Information Value Date Recorded Sex Assigned at Not on file Legal Sex Female 7:41 AM EST Gender Identity Not on file Sexual Orientation Not on file Plan of Treatment Health Maintenance Due Date Last Done Comments DTaP,Tdap,and Td Vaccines (1 - Tdap) 1967 Pneumococcal Vaccine: 50+ Ye ars (1 of 1 - PCV) 1998 Zoster Vaccines (1 of 2) 1998 RSV Immunization Adult Patie nts (1 - 1-dose 75+ series) 2023 Depression Screening 03/23/2024 Cholesterol Screening (Lipid Panel) 09/15/2024 Falls Risk Assessment 09/15/2024 Hepatitis C Screening 09/15/2024 Medicare Annual Wellness Visit 09/15/2024 Osteoporosis Screening (Bone Density Screening) 09/15/2024 Social Influencers of Health Screening 09/15/2024 COVID-19 Vaccine ( - 2023-2 5 season) 2024 Influenza Vaccine (#1) 2024 HIB Vaccines Aged Out No longer eligi ble based on patient's age to complete this topic HPV Vaccines Aged Out No longer eligi ble based on patient's age to complete this topic Hepatitis A Vaccines Aged Out No long er eligible based on patient's age to complete this topic Hepatitis B Vaccines Aged Out No long er eligible based on patient's age to complete this topic IPV Vaccines Aged Out No longer eligi ble based on patient's age to complete this topic MMR Vaccines Aged Out No longer eligi ble based on patient's age to complete this topic Meningococcal ACWY Vaccine Aged Out N o longer eligible based on patient's age to complete this topic Meningococcal B Vaccine Aged Out No l onger eligible based on patient's age to complete this topic RSV Immunization Patients Un melvin 20 months Aged Out No longer eligible b ased on patient's age to complete this topic Varicella Vaccines Aged Out No longer eligible based on patient's age to complete this topic Procedures Procedure Name Priority Date/Time Associated Diagnosis Comments BASIC METABOLIC PANEL Routine 09/27/2024 6:30 AM EDT Hypovolemic shock (CMS/HCC V24, CMS/HCC V28) Acute kidney failure, unspecified (CMS/HCC V24) Chronic kidney disease, stage 3 unspecified (CMS/HCC V24, CMS/HCC V28) Hypokalemia Gastro-esophageal reflux disease without esophagitis Hypothyroidism, unspecified Hyperlipidemia, unspecified COMPLETE BLOOD COUNT Routine 09/27/2024 6:30 AM EDT Hypovolemic shock (CMS/HCC V24, CMS/HCC V28) Acute kidney failure, unspecified (CMS/HCC V24) Chronic kidney disease, stage 3 unspecified (CMS/HCC V24, CMS/HCC V28) Hypokalemia Gastro-esophageal reflux disease without esophagitis Hypothyroidism, unspecified Hyperlipidemia, unspecified CBC WITH AUTO DIFFERENTIAL Routine 09/26/2024 8:43 AM EDT Chronic kidney disease, stage 3 unspecified (CMS/HCC V24, CMS/HCC V28) Acute kidney failure, unspecified (CMS/HCC V24) BASIC METABOLIC PANEL Routine 09/26/2024 8:43 AM EDT Chronic kidney disease, stage 3 unspecified (CMS/HCC V24, CMS/HCC V28) Acute kidney failure, unspecified (CMS/HCC V24) CBC AND DIFFERENTIAL Routine 09/26/2024 8:43 AM EDT Chronic kidney disease, stage 3 unspecified (CMS/HCC V24, CMS/HCC V28) Acute kidney failure, unspecified (CMS/HCC V24) CLOSTRIDIUM DIFFICILE PCR Routine 09/23/2024 2:30 AM EDT Enterocolitis due to Clostridium difficile, not specified as recurrent CLOSTRIDIUM DIFFICILE TOXIN Routine 09/23/2024 2:30 AM EDT Enterocolitis due to Clostridium difficile, not specified as recurrent BASIC METABOLIC PANEL Routine 09/21/2024 5:18 AM EDT Chronic kidney disease, stage 3 unspecified (CMS/HCC V24, CMS/HCC V28) Hypo-osmolality and hyponatremia BASIC METABOLIC PANEL Routine 09/20/2024 6:35 AM EDT Hypovolemic shock (CMS/HCC V24, CMS/HCC V28) Acute kidney failure, unspecified (CMS/HCC V24) Chronic kidney disease, stage 3 unspecified (CMS/HCC V24, CMS/HCC V28) Hypokalemia Gastro-esophageal reflux disease without esophagitis Hypothyroidism, unspecified Hyperkalemia COMPLETE BLOOD COUNT Routine 09/20/2024 6:35 AM EDT Hypovolemic shock (CMS/HCC V24, CMS/HCC V28) Acute kidney failure, unspecified (CMS/HCC V24) Chronic kidney disease, stage 3 unspecified (CMS/HCC V24, CMS/HCC V28) Hypokalemia Gastro-esophageal reflux disease without esophagitis Hypothyroidism, unspecified Hyperkalemia BASIC METABOLIC PANEL Routine 09/19/2024 8:55 AM EDT Acute kidney failure, unspecified (CMS/HCC V24) Chronic kidney disease, stage 3 unspecified (CMS/HCC V24, CMS/HCC V28) COMPLETE BLOOD COUNT Routine 09/19/2024 8:55 AM EDT Acute kidney failure, unspecified (CMS/HCC V24) Chronic kidney disease, stage 3 unspecified (CMS/HCC V24, CMS/HCC V28) MAGNESIUM Routine 09/14/2024 5:27 AM EDT Hypovolemic [...] Routine 09/14/2024 5:27 AM EDT Hypovolemic shock ([facility]/HCC V24, CMS/HCC V28) Acute kidney failure, unspecified ([facility]/HCC V24) Chronic kidney disease, stage 3 unspecified (CMS/HCC V24, CMS/HCC V28) Hypokalemia Hypo-osmolality and hyponatremia Hyperlipidemia, unspecified Hypothyroidism, unspecified Gastro-esophageal reflux disease without esophagitis Vitamin D deficiency, unspecified Unspecified osteoarthritis, unspecified site VITAMIN B12 Routine 09/14/2024 5:27 AM EDT Hypovolemic shock ([facility] V24, [facility] V28) Acute kidney failure, unspecified ([facility] V24) Chronic kidney disease, stage 3 unspecified ([facility]/HCC V24, CMS/HCC V28) Hypokalemia Hypo-osmolality and hyponatremia Hyperlipidemia, unspecified Hypothyroidism, unspecified Gastro-esophageal reflux disease without esophagitis Vitamin D deficiency, unspecified Unspecified osteoarthritis, unspecified site VITAMIN D 25 HYDROXY Routine 09/14/2024 5:27 AM EDT Hypovolemic shock ([facility] V24, [facility] V28) Acute kidney failure, unspecified ([facility]/HCC V24) Chronic kidney disease, stage 3 unspecified ([facility]/HCC V24, CMS/HCC V28) Hypokalemia Hypo-osmolality and hyponatremia Hyperlipidemia, unspecified Hypothyroidism, unspecified Gastro-esophageal reflux disease without esophagitis Vitamin D deficiency, unspecified Unspecified osteoarthritis, unspecified site COMPREHENSIVE METABOLIC PANEL Routine 09/14/2024 5:27 AM EDT Hypovolemic shock ([facility] V24, [facility] V28) Acute kidney failure, unspecified ([facility] V24) Chronic kidney disease, stage 3 unspecified (CMS/HCC V24, CMS/HCC V28) Hypokalemia Hypo-osmolality and hyponatremia Hyperlipidemia, unspecified Hypothyroidism, unspecified Gastro-esophageal reflux disease without esophagitis Vitamin D deficiency, unspecified Unspecified osteoarthritis, unspecified site COMPLETE BLOOD COUNT Routine 09/14/2024 5:27 AM EDT Hypovolemic shock (CMS/[facility] V24, [facility] V28) Acute kidney failure, unspecified ([facility] V24) Chronic kidney disease, stage 3 unspecified (CMS/[facility] V24, [facility] V28) Hypokalemia Hypo-osmolality and hyponatremia Hyperlipidemia, unspecified Hypothyroidism, unspecified Gastro-esophageal reflux disease without esophagitis Vitamin D deficiency, unspecified Unspecified osteoarthritis, unspecified site from Last 3 Months Results * (ABNORMAL) Complete blood count (09/27/2024 6:30 AM EDT) Only the most recent of4 resultswithin the time period is included. WBC 5.2 4.8 - 10.8 K/mcL LAB HEMETOLOGY METHOD 09/27/2024 8:13 AM [facility] RBC 3.30(L) 3.80 - 4.80 M/mcL LAB HEMETOLOGY METHOD 09/27/2024 8:13 AM [facility] Hemoglobin 8.7(L) 11.5 - 16.0 g/dL LAB HEMETOLOGY METHOD 09/27/2024 8:13 AM [facility] Hematocrit 28.6(L) 35.0 - 47.0 % LAB HEMETOLOGY METHOD 09/27/2024 8:13 AM [facility] MCV 87.7 79.0 - 98.0 FL LAB HEMETOLOGY METHOD 09/27/2024 8:13 AM [facility] MCH 26.7(L) 27.0 - 32.0 pcg LAB HEMETOLOGY METHOD 09/27/2024 8:13 AM [facility] MCHC 30.4(L) 32.0 - 37.0 g/dL LAB HEMETOLOGY METHOD 09/27/2024 8:13 AM [facility] RDW 14.9 11.0 - 15.0 % LAB [facility] Platelets 194 130 - 400 K/mcL LAB HEMETOLOGY METHOD 09/27/2024 8:13 AM EDT [facility] MPV 10.5 7.0 - 11.0 FL LAB HEMETOLOGY METHOD 09/27/2024 8:13 AM EDT [facility] NRBC 0.0 <1.0 % [facility] 09/27/[facility]24 8:13 AM EDT [facility] NRBC Absolute 0.00 <0.10 K/mcL [facility] Blood Venous blood specimen / Unknown Venipuncture / Unknown 09/27/2024 6:30 AM EDT 09/27/2024 7:29 AM EDT Luanne Card MD LAB BLOOD ORDERABLES Fin al Result [facility] [address] [place] [address], * (ABNORMAL) Basic metabolic panel (09/27/2024 6:30 AM EDT) Only the most recent of5 resultswithin the time period is included. Sodium 138 133 - 145 mmol/L LAB CHEMISTRY METHOD 09/27/2024 8:46 AM [facility] Potassium 3.5 3.5 - 5.5 mmol/L LAB CHEMISTRY METHOD 09/27/2024 8:46 AM [facility] Chloride 95(L) 96 - 110 mmol/L LAB CHEMISTRY METHOD 09/27/2024 8:46 AM [facility] CO2 39(H) 21 - 32 mmol/L LAB [facility]STR[facility] METHOD [facility]24 [facility] Anion Gap 4 3 - 11 LAB CHEMISTRY METHOD 09/27/2024 8:46 AM EDT [facility] Glucose 99 70 - 100 mg/dL LAB CHEMISTRY METHOD 09/27/2024 8:46 AM EDT [facility] BUN 20 5 - 25 mg/dL LAB [facility]STR[facility] METHOD [facility] Creatinine 0.99 0.50 - 1.10 mg/dL LAB CHEMISTRY METHOD 09/27/2024 8:46 AM EDT [facility] eGFR 59(L) >=60 mL/min/1. 73m2 LAB CHEMISTRY METHOD 09/27/2024 8:46 AM T [facility] Comment:Calculation based on the Chronic Kidney Disease Epidemiology Collaboration (CKD-EPI) equation refit without adjustment for race. BUN/Creatinine Ratio 20.2 LAB CHEMISTRY METHOD 09/27/2024 8:46 AM [facility] Calcium 8.8 8.5 - 10.5 mg/dL LAB CHEMISTRY METHOD 09/27/2024 8:46 AM T [facility] Blood Venous blood specimen / Unknown Venipuncture / Unknown 09/27/2024 6:30 AM EDT 09/27/2024 7:29 AM EDT us Luanne Card MD LAB BLOOD ORDERABLES Fin al Result [facility] [address] [place] [address], * (ABNORMAL) CBC auto differential (09/26/2024 8:43 AM EDT) WBC 5.5 4.8 - 10.8 K/mcL LAB HEMETOLOGY METHOD 09/26/2024 11:15 AM [facility] RBC 3.70(L) 3.80 - 4.80 M/mcL LAB HEMETOLOGY METHOD 09/26/2024 11:15 AM T [facility] Hemoglobin 10.1(L) 11.5 - 16.0 g/dL LAB HEMETOLOGY METHOD 09/26/2024 11:15 AM [facility] Hematocrit 33.6(L) 35.0 - 47.0 % LAB HEMETOLOGY METHOD 09/26/2024 11:15 AM [facility] MCV 89.8 79.0 - 98.0 FL LAB HEMETOLOGY METHOD 09/26/2024 11:15 AM [facility] MCH 27.0 27.0 - 32.0 pcg LAB HEMETOLOGY METHOD 09/26/2024 11:15 AM [facility] MCHC 30.1(L) 32.0 - 37.0 g/dL LAB HEMETOLOGY METHOD 09/26/2024 11:15 AM [facility] RDW 15.0 11.0 - 15.0 % LAB HEMETOLOGY METHOD 09/26/2024 11:15 AM [facility] Platelets 233 130 - 400 K/mcL LAB HEMETOLOGY METHOD 09/26/2024 11:15 AM [facility] MPV 10.7 7.0 - 11.0 FL LAB HEMETOLOGY METHOD 09/26/2024 11:15 AM [facility] NRBC 0.0 <1.0 % LAB HEMETOLOGY METHOD 09/26/2024 11:15 AM [facility] NRBC Absolute 0.00 <0.10 K/mcL LAB HEMETOLOGY METHOD 09/26/2024 11:15 AM [facility] Neutrophils Relative 58.1 % LAB HEMETOLOGY METHOD 09/26/2024 11:15 AM [facility] Lymphocytes Relative 24.8 % LAB HEMETOLOGY METHOD 09/26/2024 11:15 AM [facility] Monocytes Relative 10.3 % LAB HEMETOLOGY METHOD 09/26/2024 11:15 AM EDT [facility] Eosinophils Relative 5.4 % LAB HEMETOLOGY METHOD 09/26/2024 11:15 AM EDT [facility] Basophils Relative 0.7 % LAB HEMETOLOGY METHOD 09/26/2024 11:15 AM EDT [facility] Immature Granulocytes Relative 0.7 % LAB HEMETOLOGY METHOD 09/26/2024 11:15 AM EDT [facility] Neutrophils Absolute 3.21 1.50 - 7.00 K/mcL LAB HEMETOLOGY METHOD 09/26/2024 11:15 AM EDT [facility] Lymphocytes Absolute 1.37 1.00 - 5.00 K/mcL LAB HEMETOLOGY METHOD 09/26/2024 11:15 AM EDT [facility] Monocytes Absolute 0.57 0.20 - 1.00 K/mcL LAB HEMETOLOGY METHOD 09/26/2024 11:15 AM EDT [facility] Eosinophils Absolute 0.30 0.00 - 0.50 K/mcL LAB HEMETOLOGY METHOD 09/26/2024 11:15 AM EDT [facility] Basophils Absolute 0.04 0.00 - 0.20 K/mcL LAB HEMETOLOGY METHOD 09/26/2024 11:15 AM EDT [facility] Immature Granulocytes Absolute 0.04(H) 0.00 - 0.03 K/mcL LAB HEMETOLOGY METHOD 09/26/2024 11:15 AM EDT [facility] Blood Venous blood specimen / Unknown Venipuncture / Unknown 09/26/2024 8:43 AM EDT 09/26/2024 10:17 AM EDT us Luanne Card MD LAB BLOOD ORDERABLES Fin al Result [facility] [address] [place] [address], * Clostridium difficile molecular study (09/23/2024 2:30 AM EDT) Pathologist [facility] Clostridium difficile PCR Negative Negative LAB MICROBIOLOGY METHOD 09/23/2024 12:28 PM EDT [facility] Comment:NEGATIVE FOR TOXIN P RODUCING CLOSTRIDIOIDES DIFFICILE, NO ADDITIONAL TESTING IS NECESSARY. Stool Rectum structure / Unknown Non-blood Collection / Unknown 09/23/2024 2:30 AM EDT 09/23/2024 11:33 AM EDT Luanne Card MD LAB MICROBIOLOGY - GENER AL ORDERABLES Final Result Performing Organization Address [facility] Co de Phone Number [facility] [address] [place] [address], * Clostridium difficile toxin (09/23/2024 2:30 AM EDT) [facility] C difficile Toxins A+B, EIA 09/23/2024 11:33 AM EDT [facility] Comment:Refer to C. difficil e PCR assay for results. Stool Rectum structure / Unknown Non-blood Collection / Unknown 09/23/2024 2:30 AM EDT 09/23/2024 7:43 AM EDT Luanne Card MD LAB MICROBIOLOGY - GENER AL ORDERABLES Final Result [facility] [address] [place] [address], * Vitamin D 25 hydroxy (09/14/2024 5:27 AM EDT) [facility] Vit D, 25-Hydroxy 53.6 30.0 - 80.0 ng/mL LAB CHEMISTRY METHOD 09/14/2024 12:42 PM EDT [facility] Blood Venous blood specimen / Unknown Venipuncture / Unknown 09/14/2024 5:27 AM EDT 09/14/2024 8:42 AM EDT Luanne Card MD LAB BLOOD ORDERABLES Fin al Result Performing Organization Address [facility]/ZIP Co de Phone Number [facility] [address] [place] [address], [place] [phone] * (ABNORMAL) Thyroid stimulating hormone (09/14/2024 5:27 AM EDT) TSH 7.12(H) 0.40 - 4.00 mcIU/mL LAB CHEMISTRY METHOD 09/14/2024 12:42 PM EDT [facility] Blood Venous blood specimen / Unknown Venipuncture / Unknown 09/14/2024 5:27 AM EDT 09/14/2024 8:42 AM EDT Luanne Card MD LAB BLOOD ORDERABLES Fin al Result Performing Organization Address [facility] Co de Phone Number [facility] [address] [place] [address], [place] [phone] * Magnesium (09/14/2024 5:27 AM EDT) Magnesium 1.9 1.9 - 2.6 mg/dL LAB CHEMISTRY METHOD 09/17/2024 12:04 PM EDT [facility] Blood Venous blood specimen / Unknown Venipuncture / Unknown 09/14/2024 5:27 AM EDT 09/14/2024 8:42 AM EDT Luanne Card MD LAB BLOOD ORDERABLES Fin al Result Performing Organization Address City/[facility]/ZIP Co de Phone Number [facility] [address] [place] [address], [place] [phone] * Folate (09/14/2024 5:27 AM EDT) [facility] Folate 6.0 2.8 - 17.0 ng/ml LAB CHEMISTRY METHOD 09/14/2024 10:32 AM EDT [facility] Blood Venous blood specimen / Unknown Venipuncture / Unknown 09/14/2024 5:27 AM EDT 09/14/2024 8:42 AM EDT Luanne Card MD LAB BLOOD ORDERABLES Fin al Result [facility] [address] [place] [address], [place] [phone] * Vitamin B12 (09/14/2024 5:27 AM EDT) [facility] Vitamin B-12 412 250 - 900 pcg/mL LAB CHEMISTRY METHOD 09/14/2024 12:08 PM EDT [facility] Blood Venous blood specimen / Unknown Venipuncture / Unknown 09/14/2024 5:27 AM EDT 09/14/2024 8:42 AM EDT Luanne Card MD LAB BLOOD ORDERABLES Fin al Result Performing Organization Address [facility]/ZIP Co de Phone Number [facility] [address] [place] [address], [place] [phone] * (ABNORMAL) Comprehensive metabolic panel (09/14/2024 5:27 AM EDT) [facility] Sodium 137 133 - 145 mmol/L LAB CHEMISTRY METHOD 09/14/2024 10:32 AM EDT [facility] Potassium 4.0 3.5 - 5.5 mmol/L LAB CHEMISTRY METHOD 09/14/2024 10:32 AM EDT [facility] Chloride 94(L) 96 - 110 mmol/L LAB CHEMISTRY METHOD 09/14/2024 10:32 AM EDT [facility] CO2 29 21 - 32 mmol/L LAB CHEMISTRY METHOD 09/14/2024 10:32 AM [facility] Anion Gap 14(H) 3 - 11 LAB CHEMISTRY METHOD 09/14/2024 10:32 AM [facility] Glucose 74 70 - 100 mg/dL LAB CHEMISTRY METHOD 09/14/2024 10:32 AM [facility] BUN 26(H) 5 - 25 mg/dL LAB CHEMISTRY METHOD 09/14/2024 10:32 AM [facility] Creatinine 1.42(H) 0.50 - 1.10 mg/dL LAB CHEMISTRY METHOD 09/14/2024 10:32 AM [facility] eGFR 38(L) >=60 mL/min/1. 73m2 LAB CHEMISTRY METHOD 09/14/2024 10:32 AM [facility] Comment:Calculation based on the Chronic Kidney Disease Epidemiology Collaboration (CKD-EPI) equation refit without adjustment for race. BUN/Creatinine Ratio 18.3 LAB CHEMISTRY METHOD 09/14/2024 10:32 AM [facility] Calcium 10.2 8.5 - 10.5 mg/dL LAB CHEMISTRY METHOD 09/14/2024 10:32 AM [facility] AST (SGOT) 46(H) 10 - 42 unit/L LAB CHEMISTRY METHOD 09/14/2024 10:32 AM [facility] ALT (SGPT) 32 10 - 60 unit/L LAB CHEMISTRY METHOD 09/14/2024 10:32 AM [facility] Alkaline Phosphatase 157(H) 42 - 121 unit/L LAB CHEMISTRY METHOD 09/14/2024 10:32 AM [facility] Total Protein 7.3 6.0 - 8.0 g/dL LAB CHEMISTRY METHOD 09/14/2024 10:32 AM [facility] Albumin 3.7 3.2 - 5.0 g/dL LAB CHEMISTRY METHOD 09/14/2024 10:32 AM EDT [facility] Total Bilirubin 0.6 0.0 - 1.4 mg/dL LAB CHEMISTRY METHOD 09/14/2024 10:32 AM EDT [facility] Blood Venous blood specimen / Unknown Venipuncture / Unknown 09/14/2024 5:27 AM EDT 09/14/2024 8:42 AM EDT us Luanne Card MD LAB BLOOD ORDERABLES Fin al Result [facility] ([facility] [address] [place] [address], from Last 3 Months Insurance MEDICARE [facility] Care Teams Metalworking Instructor Relationship Specialty Start Date End Date Luanne Card MD [address] [address] PCP - General Family Medicine 09/14/24
--- OUTSIDE RECORDS SUMMARY | 2024-11-22 16:58 | XMS_ITS | Encounter Summary ---
Author Organization [facility] Address [address] [place] [phone] Care Team Providers Care Round Corner Cutter Operator Name Role Phone Luanne Card MD Primary Care Provider + Encounter Details Date Type Department Care Team (Late st Contact Info) Description 09/19/2024 Lab Requisition [facility] - Main Lab 299 [facility] [place] [address] Luanne Card MD [address] [address] Hypovolemic shock (CMS/HCC V24, CMS/HCC V28); Acute kidney failure, unspecified (CMS/HCC V24); Chronic kidney disease, stage 3 unspecified (CMS/HCC V24, CMS/HCC V28); Hypokalemia; Gastro-esophageal reflux disease without esophagitis; Hypothyroidism, unspecified; Hyperkalemia Social History Tobacco Use Types Packs/Day Years [...] Associated Diagnosis Comments COMPLETE BLOOD COUNT Routine 09/20/2024 6:35 AM EDT Hypovolemic shock (CMS/HCC V24, CMS/HCC V28) Acute kidney failure, unspecified (CMS/HCC V24) Chronic kidney disease, stage 3 unspecified (CMS/HCC V24, CMS/HCC V28) Hypokalemia Gastro-esophageal reflux disease without esophagitis Hypothyroidism, unspecified Hyperkalemia BASIC METABOLIC PANEL Routine 09/20/2024 6:35 AM EDT Hypovolemic shock ([facility] V24, [facility] V28) Acute kidney failure, unspecified ([facility] V24) Chronic kidney disease, stage 3 unspecified ([facility] V24, [facility] V28) Hypokalemia Gastro-esophageal reflux disease without esophagitis Hypothyroidism, unspecified Hyperkalemia documented in this encounter Results * (ABNORMAL) Basic metabolic panel (09/20/2024 6:35 AM EDT) [facility] Sodium 141 133 - 145 mmol/L LAB CHEMISTRY METHOD 09/20/2024 9:34 AM [facility] Potassium 3.2(L) 3.5 - 5.5 mmol/L LAB CHEMISTRY METHOD 09/20/2024 9:34 AM [facility] Chloride 100 96 - 110 mmol/L LAB CHEMISTRY METHOD 09/20/2024 9:34 AM [facility] CO2 35(H) 21 - 32 mmol/L LAB CHEMISTRY METHOD 09/20/2024 9:34 AM [facility] Anion Gap 6 3 - 11 LAB CHEMISTRY METHOD 09/20/2024 9:34 AM [facility] Glucose 75 70 - 100 mg/dL LAB CHEMISTRY METHOD 09/20/2024 9:34 AM [facility] BUN 14 5 - 25 mg/dL LAB CHEMISTRY METHOD 09/20/2024 9:34 AM [facility] Creatinine 0.91 0.50 - 1.10 mg/dL LAB CHEMISTRY METHOD 09/20/2024 9:34 AM [facility] eGFR 66 >=60 mL/min/1. 73m2 LAB CHEMISTRY METHOD 09/20/2024 9:34 AM [facility] Comment:Calculation based on the Chronic Kidney Disease Epidemiology Collaboration (CKD-EPI) equation refit without adjustment for race. BUN/Creatinine Ratio 15.4 LAB CHEMISTRY METHOD 09/20/2024 9:34 AM T [facility] Calcium 8.6 8.5 - 10.5 mg/dL LAB CHEMISTRY METHOD 09/20/2024 9:34 AM [facility] Blood Venous blood specimen / Unknown Venipuncture / Unknown 09/20/2024 6:35 AM EDT 09/20/2024 8:44 AM EDT us Luanne Card MD LAB BLOOD ORDERABLES Fin al Result [facility] [address] [place] [address], * (ABNORMAL) Complete blood count (09/20/2024 6:35 AM EDT) WBC 9.9 4.8 - 10.8 K/mcL LAB HEMETOLOGY METHOD 09/20/2024 9:12 AM [facility] RBC 3.30(L) 3.80 - 4.80 M/mcL LAB HEMETOLOGY METHOD 09/20/2024 9:12 AM [facility] Hemoglobin 8.8(L) 11.5 - 16.0 g/dL LAB HEMETOLOGY METHOD 09/20/2024 9:12 AM [facility] Hematocrit 30.0(L) 35.0 - 47.0 % LAB HEMETOLOGY METHOD 09/20/2024 9:12 AM [facility] MCV 91.5 79.0 - 98.0 FL LAB HEMETOLOGY METHOD 09/20/2024 9:12 AM [facility] MCH 26.8(L) 27.0 - 32.0 pcg LAB HEMETOLOGY METHOD 09/20/2024 9:12 AM [facility] MCHC 29.3(L) 32.0 - 37.0 g/dL LAB HEMETOLOGY METHOD 09/20/2024 9:12 AM EDT [facility] RDW 15.4(H) 11.0 - 15.0 % LAB HEMETOLOGY METHOD 09/20/2024 9:12 AM EDT [facility] Platelets 186 130 - 400 K/mcL LAB HEMETOLOGY METHOD 09/20/2024 9:12 AM EDT [facility] MPV 10.7 7.0 - 11.0 FL LAB HEMETOLOGY METHOD 09/20/2024 9:12 AM EDT [facility] NRBC 0.0 <1.0 % LAB HEMETOLOGY METHOD 09/20/2024 9:12 AM EDT [facility] NRBC Absolute 0.00 <0.10 K/mcL LAB HEMETOLOGY METHOD 09/20/2024 9:12 AM EDT [facility] Blood Venous blood specimen / Unknown Venipuncture / Unknown 09/20/2024 6:35 AM EDT 09/20/2024 8:44 AM EDT Luanne Card MD LAB BLOOD ORDERABLES Fin al Result [facility] [address] [place] [address], documented in this encounter Visit Diagnoses Diagnosis Hypovolemic shock (CMS/HCC V24, CMS/HCC V28) Other shock without mention of trauma Acute kidney failure, unspecified (CMS/HCC V24) Acute kidney failure, unspecified Chronic kidney disease, stage 3 unspecified (CMS/HCC V24, CMS/HCC V28) Hypokalemia Hypopotassemia Gastro-esophageal reflux disease without esophagitis Hypothyroidism, unspecified Hyperkalemia Hyperpotassemia documented in this encounter Additional Health Concerns Infection Onset Date Last Indicated Resolved Time C. difficile Rule-Out 09/23/2024 09/23/20242024 11:33 AM EDT documented as of this encounter Care Teams Round Corner Cutter Operator Relationship Specialty Start Date End Date Luanne Card MD [address] [place] [id number] PCP - General Family Medicine 09/14/24 documented as of this encounter
--- OUTSIDE RECORDS SUMMARY | 2024-11-22 16:59 | XMS_ITS | Encounter Summary ---
Author Organization [facility] Address [address] [place] [phone] Care Team Providers Care Subcontracts Manager Name Role Phone Luanne Card MD Primary Care Provider + Encounter Details Date Type Department Care Team (Late st Contact Info) Description 09/26/2024 Lab Requisition [facility] - Main Lab 299 [facility] [place] [address] Luanne Card MD [address] [address] Hypovolemic shock (CMS/HCC V24, CMS/HCC V28); Acute kidney failure, unspecified (CMS/HCC V24); Chronic kidney disease, stage 3 unspecified (CMS/HCC V24, CMS/HCC V28); Hypokalemia; Gastro-esophageal reflux disease without esophagitis; Hypothyroidism, unspecified; Hyperlipidemia, unspecified Social History Tobacco Use Types Packs/Day Years [...] Associated Diagnosis Comments COMPLETE BLOOD COUNT Routine 09/27/2024 6:30 AM EDT Hypovolemic shock (CMS/HCC V24, CMS/HCC V28) Acute kidney failure, unspecified (CMS/HCC V24) Chronic kidney disease, stage 3 unspecified (CMS/HCC V24, CMS/HCC V28) Hypokalemia Gastro-esophageal reflux disease without esophagitis Hypothyroidism, unspecified Hyperlipidemia, unspecified BASIC METABOLIC PANEL Routine 09/27/2024 6:30 AM EDT Hypovolemic shock ([facility] V24, [facility] V28) Acute kidney failure, unspecified ([facility] V24) Chronic kidney disease, stage 3 unspecified ([facility] V24, [facility] V28) Hypokalemia Gastro-esophageal reflux disease without esophagitis Hypothyroidism, unspecified Hyperlipidemia, unspecified documented in this encounter Results * (ABNORMAL) Basic metabolic panel (09/27/2024 6:30 AM EDT) [facility] Sodium 138 133 - 145 mmol/L LAB CHEMISTRY METHOD 09/27/2024 8:46 AM [facility] Potassium 3.5 3.5 - 5.5 mmol/L LAB CHEMISTRY METHOD 09/27/2024 8:46 AM [facility] Chloride 95(L) 96 - 110 mmol/L LAB CHEMISTRY METHOD 09/27/2024 8:46 AM [facility] CO2 39(H) 21 - 32 mmol/L LAB CHEMISTRY METHOD 09/27/2024 8:46 AM [facility] Anion Gap 4 3 - 11 LAB CHEMISTRY METHOD 09/27/2024 8:46 AM [facility] Glucose 99 70 - 100 mg/dL LAB CHEMISTRY METHOD 09/27/2024 8:46 AM [facility] BUN 20 5 - 25 mg/dL LAB CHEMISTRY METHOD 09/27/2024 8:46 AM [facility] Creatinine 0.99 0.50 - 1.10 mg/dL LAB CHEMISTRY METHOD 09/27/2024 8:46 AM [facility] eGFR 59(L) >=60 mL/min/1. 73m2 LAB CHEMISTRY METHOD 09/27/2024 8:46 AM [facility] Comment:Calculation based on the Chronic Kidney Disease Epidemiology Collaboration (CKD-EPI) equation refit without adjustment for race. BUN/Creatinine Ratio 20.2 LAB CHEMISTRY METHOD 09/27/2024 8:46 AM EDT [facility] Calcium 8.8 8.5 - 10.5 mg/dL LAB CHEMISTRY METHOD 09/27/2024 8:46 AM [facility] Blood Venous blood specimen / Unknown Venipuncture / Unknown 09/27/2024 6:30 AM EDT 09/27/2024 7:29 AM EDT us Luanne Card MD LAB BLOOD ORDERABLES Fin al Result [facility] [address] [place] [address], * (ABNORMAL) Complete blood count (09/27/2024 6:30 AM EDT) WBC 5.2 4.8 - 10.8 K/mcL LAB HEMETOLOGY METHOD 09/27/2024 8:13 AM [facility] RBC 3.30(L) 3.80 - 4.80 M/mcL LAB HEMETOLOGY METHOD 09/27/2024 8:13 AM [facility] Hemoglobin 8.7(L) 11.5 - 16.0 g/dL LAB HEMETOLOGY METHOD 09/27/2024 8:13 AM [facility] Hematocrit 28.6(L) 35.0 - 47.0 % LAB HEMETOLOGY METHOD 09/27/2024 8:13 AM [facility] MCV 87.7 79.0 - 98.0 FL LAB HEMETOLOGY METHOD 09/27/2024 8:13 AM [facility] MCH 26.7(L) 27.0 - 32.0 pcg LAB HEMETOLOGY METHOD 09/27/2024 8:13 AM [facility] MCHC 30.4(L) 32.0 - 37.0 g/dL LAB HEMETOLOGY METHOD 09/27/2024 8:13 AM EDT [facility] RDW 14.9 11.0 - 15.0 % LAB HEMETOLOGY METHOD 09/27/2024 8:13 AM EDT [facility] Platelets 194 130 - 400 K/mcL LAB HEMETOLOGY METHOD 09/27/2024 8:13 AM EDT [facility] MPV 10.5 7.0 - 11.0 FL LAB HEMETOLOGY METHOD 09/27/2024 8:13 AM EDT [facility] NRBC 0.0 <1.0 % LAB HEMETOLOGY METHOD 09/27/2024 8:13 AM EDT [facility] NRBC Absolute 0.00 <0.10 K/mcL LAB HEMETOLOGY METHOD 09/27/2024 8:13 AM EDT [facility] Blood Venous blood specimen / Unknown Venipuncture / Unknown 09/27/2024 6:30 AM EDT 09/27/2024 7:29 AM EDT Luanne Card MD LAB BLOOD ORDERABLES Fin al Result [facility] [address] [place] [address], documented in this encounter Visit Diagnoses Diagnosis Hypovolemic shock (CMS/HCC V24, CMS/HCC V28) Other shock without mention of trauma Acute kidney failure, unspecified (CMS/HCC V24) Acute kidney failure, unspecified Chronic kidney disease, stage 3 unspecified (CMS/HCC V24, CMS/HCC V28) Hypokalemia Hypopotassemia Gastro-esophageal reflux disease without esophagitis Hypothyroidism, unspecified Hyperlipidemia, unspecified documented in this encounter Care Teams Subcontracts Manager Relationship Specialty Start Date End Date Luanne Card MD [address] [place] [id number] PCP - General Family Medicine 09/14/24 documented as of this encounter
--- OUTSIDE RECORDS SUMMARY | 2024-11-22 16:59 | XMS_ITS | Encounter Summary ---
Author Organization [facility] Address [address] [place] [address] Care Team Providers Care Material Manager Name Role Phone Luanne Card MD Primary Care Provider + Encounter Details Date Type Department Care Team (Late st Contact Info) Description 09/23/2024 Lab Requisition [facility] - Main Lab [address] [place] [address] Luanne Card MD 819 [facility] 1 [place], [place] [phone] Enterocolitis due to Clostridium difficile, not specified as recurrent Social History Tobacco Use Types Packs/Day Years [...] Procedure Name Priority Date/Time Associated Diagnosis Comments CLOSTRIDIUM DIFFICILE PCR Routine 09/23/2024 2:30 AM EDT Enterocolitis due to Clostridium difficile, not specified as recurrent CLOSTRIDIUM DIFFICILE TOXIN Routine 09/23/2024 2:30 AM EDT Enterocolitis due to Clostridium difficile, not specified as recurrent documented in this encounter Results * Clostridium difficile molecular study (09/23/2024 2:30 AM EDT) Clostridium difficile PCR Negative Negative LAB MICROBIOLOGY METHOD 09/23/2024 12:[address] [facility] Comment:NEGATIVE FOR TOXIN P RODUCING CLOSTRIDIOIDES DIFFICILE, NO ADDITIONAL TESTING IS NECESSARY. Stool Rectum structure / Unknown Non-blood Collection / Unknown 09/23/2024 2:30 AM EDT 09/23/2024 11:33 AM EDT Luanne Card MD LAB MICROBIOLOGY - GENER AL ORDERABLES Final Result Performing Organization Address [facility] Co de Phone Number [facility] [address] [place] [address], [place] [phone] * Clostridium difficile toxin (09/23/2024 2:30 AM EDT) C difficile Toxins A+B, EIA 09/23/2024 11:33 AM EDT [facility] Comment:Refer to C. difficil e PCR assay for results. Stool Rectum structure / Unknown Non-blood Collection / Unknown 09/23/2024 2:30 AM EDT 09/23/2024 7:43 AM EDT Luanne Card MD LAB MICROBIOLOGY - GENER AL ORDERABLES Final Result Performing Organization Address [facility] de Phone Number [facility] [address] [place] [address], [place] [phone] documented in this encounter Visit Diagnoses Diagnosis Enterocolitis due to Clostridium difficile, not specified as recurrent documented in this encounter Additional Health Concerns Infection Onset Date Last Indicated Resolved Time C. difficile Rule-Out 09/23/2024 09/23/20242024 11:33 AM EDT documented as of this encounter Care Teams Material Manager Relationship Specialty Start Date End Date Luanne Card MD [address] [place] [phone] PCP - General Family Medicine 09/14/24 documented as of this encounter
--- OUTSIDE RECORDS SUMMARY | 2024-11-22 16:59 | XMS_ITS | Encounter Summary ---
Author Organization [facility] Address [address] [place] [phone] Care Team Providers Care Plastic Card Grader Cardroom Name Role Phone Luanne Card MD Primary Care Provider + Encounter Details Date Type Department Care Team (Late st Contact Info) Description 10/03/2024 Lab Requisition [facility] - Main Lab 299 [facility] [place] [address] Luanne Card MD [address] [address] Hypovolemic shock (CMS/HCC V24, CMS/HCC [...] on file documented as of this encounter Visit Diagnoses Diagnosis Hypovolemic shock (CMS/HCC V24, CMS/HCC V28) Other shock without mention of trauma Acute kidney failure, unspecified (CMS/HCC V24) Acute kidney failure, unspecified Chronic kidney disease, stage 3 unspecified (CMS/HCC V24, CMS/HCC V28) Hypokalemia Hypopotassemia Gastro-esophageal reflux disease without esophagitis Hypothyroidism, unspecified Hyperlipidemia, unspecified documented in this encounter Care Teams Plastic Card Grader Cardroom Relationship Specialty Start Date End Date Luanne Card MD [address] [place] [phone] PCP - General Family Medicine 09/14/24 documented as of this encounter
--- OUTSIDE RECORDS SUMMARY | 2024-11-22 16:59 | XMS_ITS | Encounter Summary ---
Author Organization [facility] Address [address] [place] [phone] Care Team Providers Care Printer'S Devil Name Role Phone Luanne Card MD Primary Care Provider + Encounter Details Date Type Department Care Team (Late st Contact Info) Description 09/26/2024 Lab Requisition [facility] - Main Lab 299 [facility] [place] [address] Luanne Card MD [address] [address] Chronic kidney disease, stage 3 unspecified (CMS/HCC V24, CMS/HCC V28); Acute kidney failure, unspecified (CMS/HCC V24) Social History Tobacco Use Types Packs/Day Years [...] Procedure Name Priority Date/Time Associated Diagnosis Comments CBC WITH AUTO DIFFERENTIAL Routine 09/26/2024 8:43 AM EDT Chronic kidney disease, stage 3 unspecified (CMS/HCC V24, CMS/HCC V28) Acute kidney failure, unspecified (CMS/HCC V24) CBC AND DIFFERENTIAL Routine 09/26/2024 8:43 AM EDT Chronic kidney disease, stage 3 unspecified (CMS/HCC V24, CMS/HCC V28) Acute kidney failure, unspecified (CMS/HCC V24) BASIC METABOLIC PANEL Routine 09/26/2024 8:43 AM EDT Chronic kidney disease, stage 3 unspecified ([facility] V24, [facility] V28) Acute kidney failure, unspecified ([facility] V24) documented in this encounter Results * (ABNORMAL) CBC auto differential (09/26/2024 8:43 AM EDT) WBC 5.5 4.8 - 10.8 K/mcL LAB HEMETOLOGY METHOD 09/26/2024 11:15 AM [facility] RBC 3.70(L) 3.80 - 4.80 M/mcL LAB HEMETOLOGY METHOD 09/26/2024 11:15 AM [facility] Hemoglobin 10.1(L) 11.5 - 16.0 g/dL LAB HEMETOLOGY METHOD 09/26/2024 11:15 AM [facility] Hematocrit 33.6(L) 35.0 - 47.0 % LAB HEMETOLOGY METHOD 09/26/2024 11:15 AM [facility] MCV 89.8 79.0 - 98.0 FL LAB HEMETOLOGY METHOD 09/26/2024 11:15 AM [facility] MCH 27.0 27.0 - 32.0 pcg LAB HEMETOLOGY METHOD 09/26/2024 11:15 AM [facility] MCHC 30.1(L) 32.0 - 37.0 g/dL LAB HEMETOLOGY METHOD 09/26/2024 11:15 AM [facility] RDW 15.0 11.0 - 15.0 % LAB HEMETOLOGY METHOD 09/26/2024 11:15 AM [facility] Platelets 233 130 - 400 K/mcL LAB HEMETOLOGY METHOD 09/26/2024 11:15 AM [facility] MPV 10.7 7.0 - 11.0 FL LAB HEMETOLOGY METHOD 09/26/2024 11:15 AM [facility] NRBC 0.0 <1.0 % LAB HEMETOLOGY METHOD 09/26/2024 11:15 AM [facility] NRBC Absolute 0.00 <0.10 K/mcL LAB HEMETOLOGY METHOD 09/26/2024 11:15 AM [facility] Neutrophils Relative 58.1 % LAB HEMETOLOGY METHOD 09/26/2024 11:15 AM [facility] Lymphocytes Relative 24.8 % LAB HEMETOLOGY METHOD 09/26/2024 11:15 AM [facility] Monocytes Relative 10.3 % LAB HEMETOLOGY METHOD 09/26/2024 11:15 AM [facility] Eosinophils Relative 5.4 % LAB HEMETOLOGY METHOD 09/26/2024 11:15 AM [facility] Basophils Relative 0.7 % LAB HEMETOLOGY METHOD 09/26/2024 11:15 AM [facility] Immature Granulocytes Relative 0.7 % LAB HEMETOLOGY METHOD 09/26/2024 11:15 AM [facility] Neutrophils Absolute 3.21 1.50 - 7.00 K/mcL LAB HEMETOLOGY METHOD 09/26/2024 11:15 AM [facility] Lymphocytes Absolute 1.37 1.00 - 5.00 K/mcL LAB HEMETOLOGY METHOD 09/26/2024 11:15 AM [facility] Monocytes Absolute 0.57 0.20 - 1.00 K/mcL LAB HEMETOLOGY METHOD 09/26/2024 11:15 AM [facility] Eosinophils Absolute 0.30 0.00 - 0.50 K/mcL LAB HEMETOLOGY METHOD 09/26/2024 11:15 AM [facility] Basophils Absolute 0.04 0.00 - 0.20 K/mcL LAB HEMETOLOGY METHOD 09/26/2024 11:15 AM [facility] Immature Granulocytes Absolute 0.04(H) 0.00 - 0.03 K/mcL LAB HEMETOLOGY METHOD 09/26/2024 11:15 AM [facility] Blood Venous blood specimen / Unknown Venipuncture / Unknown 09/26/2024 8:43 AM EDT 09/26/2024 10:17 AM EDT us Luanne Card MD LAB BLOOD ORDERABLES Fin al Result [facility] [address] [place] [address], * (ABNORMAL) Basic metabolic panel (09/26/2024 8:43 AM EDT) Sodium 136 133 - 145 mmol/L LAB CHEMISTRY METHOD 09/26/2024 12:10 PM [facility] Potassium 3.4(L) 3.5 - 5.5 mmol/L LAB CHEMISTRY METHOD 09/26/2024 12:10 PM [facility] Chloride 94(L) 96 - 110 mmol/L LAB CHEMISTRY METHOD 09/26/2024 12:10 PM [facility] CO2 34(H) 21 - 32 mmol/L LAB CHEMISTRY METHOD 09/26/2024 12:10 PM [facility] Anion Gap 8 3 - 11 LAB CHEMISTRY METHOD 09/26/2024 12:10 PM [facility] Glucose 86 70 - 100 mg/dL LAB CHEMISTRY METHOD 09/26/2024 12:10 PM [facility] BUN 18 5 - 25 mg/dL LAB CHEMISTRY METHOD 09/26/2024 12:10 PM [facility] Creatinine 1.02 0.50 - 1.10 mg/dL LAB CHEMISTRY METHOD 09/26/2024 12:10 PM EDT [facility] eGFR 57(L) >=60 mL/min/1. 73m2 LAB CHEMISTRY METHOD 09/26/2024 12:10 PM EDT [facility] Comment:Calculation based on the Chronic Kidney Disease Epidemiology Collaboration (CKD-EPI) equation refit without adjustment for race. BUN/Creatinine Ratio 17.6 LAB CHEMISTRY METHOD 09/26/2024 12:10 PM EDT [facility] Calcium 8.8 8.5 - 10.5 mg/dL LAB CHEMISTRY METHOD 09/26/2024 12:10 PM EDT [facility] Blood Venous blood specimen / Unknown Venipuncture / Unknown 09/26/2024 8:43 AM EDT 09/26/2024 10:17 AM EDT us Luanne Card MD LAB BLOOD ORDERABLES Fin al Result [facility] [address] [place] [address], documented in this encounter Visit Diagnoses Diagnosis Chronic kidney disease, stage 3 unspecified (CMS/HCC V24, CMS/HCC V28) Acute kidney failure, unspecified (CMS/HCC V24) Acute kidney failure, unspecified documented in this encounter Care Teams Printer'S Devil Relationship Specialty Start Date End Date Luanne Card MD [address] [place] [phone] PCP - General Family Medicine 09/14/24 documented as of this encounter
[2024-11-22 17:25] LABS: Appearance Urine Clear; Glucose Urine UA Negative (Negative); PH 6.0 (5.0-9.0); Specific Gravity - Urine 1.010 (1.005-1.025); UMIC TRIGGER UACC YES
[2024-11-22 17:34] LABS: UACC Culture Trigger YES
== END 2024-11-22 16:39 | disposition home or self-care (01) ==
LOC: HO.LNP 16:38
PROVIDERS: Visit Provider Internal Medicine
DX: N39.0 Urinary tract infection, site not specified (principal)
CPT/HCPCS: 81001; 87086

== ENCOUNTER 2025-02-28 12:59 | Outpatient (REF) | payer MEDICARE, SELFPAY ==
[2025-02-28 13:03] LABS: MANUAL DIFF FLAG NO
[2025-02-28 13:11] LABS: Hematocrit 36.3 % (37.0-47.0); Hemoglobin 11.4 g/dl (12.0-16.0); Imm Gran Abs Auto 0.02 X10*3/uL (0.00-0.03); Imm Gran Pct Auto 0.3 % (0.0-0.4); Lymphocytes Absolute Auto 1.6 X10*3/uL (1.2-4.9); Mean Corpuscular HGB Conc 31.4 g/dl (31.0-35.0); Mean Corpuscular Hemoglobin 29.0 pg (27.0-33.0); Mean Corpuscular Volume 92.4 fL (80.0-98.0); NRBC Abs Auto 0.000 X10*3/uL (0.0-0.012); NRBC Pct Auto 0.0 /100WBC (0.0-0.2); Platelet Count 187 X10*3/uL (160-400); Red Blood Count 3.93 X10*6/uL (4.20-5.50); White Blood Count 7.1 X10*3/uL (4.8-10.8)
[2025-02-28 13:30] LABS: Alanine Aminotransferase 11 U/L (0-31); Albumin Level 3.8 g/dL (3.5-5.0); Alkaline Phosphatase 71 U/L (39-117); Anion Gap 11 (12-20); Aspartate Amino Transferase 27 U/L (5-31); Blood Urea Nitrogen 42 mg/dL (9-16); Calcium 9.7 mg/dL (8.4-10.2); Carbon Dioxide 30 mmol/L (22-29); Chloride 102 mmol/L (96-108); Estimated Glomerular Filt Rate 25; Potassium 3.9 mmol/L (3.3-5.1); Sodium 139 mmol/L (135-145); Total Protein 6.7 g/dL (6.5-8.0)
== END 2025-02-28 13:00 | disposition home or self-care (01) ==
LOC: HO.LNP 12:59
PROVIDERS: Visit Provider Internal Medicine
DX: R53.1 Weakness (principal)
CPT/HCPCS: 80053; 84443; 85025